=== PATIENT | female | born 1985 | race Caucasian/White ===

== ENCOUNTER → 2018-09-27 07:35 | Outpatient (CLI) | payer OTHER, SELFPAY ==
[2018-07-26 10:37] VITALS: BMI 21.8
[2018-09-27 10:19] LABS: AST(SGOT) 13 U/L (15-37); Albumin, Serum 3.6 g/dL (3.2-5.0); Protein, Total 6.6 g/dL (6.4-8.2)
[2018-09-27 10:20] LABS: Alanine Aminotransfer ALT/SGPT 18 U/L (13-56); Alkaline Phosphatase 37 U/L (45-117); Bilirubin, Direct 0.14 mg/dL (0.00-0.30)
== END ==
PROVIDERS: Family Provider Internal Medicine; PCP Internal Medicine; Referring Provider Nurse Practitioner Family; Visit Provider Nurse Practitioner Family
DX: B35.1 Tinea unguium (principal)
CPT/HCPCS: 36415; 80076

== ENCOUNTER → 2018-11-02 07:18 | Outpatient (CLI) | payer OTHER, SELFPAY ==
[2018-07-26 10:37] VITALS: BMI 21.8
[2018-11-02 08:36] LABS: Mucous, Urine 0 SEEN /hpf (<or=2+); Red Blood Cells-Urine 0 SEEN /hpf (0-5); Squamous Epithelial Cells - UA 0 SEEN /hpf (5-10)
[2018-11-02 09:57] LABS: Color, Urine Yellow (Yellow); Glucose, Dipstick Normal (Normal); Ketone-Dipstick Negative (Negative); Leukocyte Esterase-Dipstick 100 /ul (Negative); Nitrite-Dipstick Negative (Negative); Occult Blood-Urine Negative /ul (Negative); Protein-Dipstick 15 mg/dl (Negative); Urine Bilirubin Dipstick Negative (Negative); Urine Clarity Clear (Clear); Urine Urobilinogen Normal (Normal)
[2018-11-02 10:02] LABS: Absolute Lymphocyte Count 1.65 X10^3/ul (0.83-4.51); Absolute Neutrophil Count 2.7 X10^3/uL (2.0-7.7); Basophil# 0.03 X10^3/uL; Basophil% 0.6 % (0-1); Eosinophil# 0.06 X10^3/uL; Eosinophils% 1.3 % (0-5); Hematocrit 41.5 % (37-47); Hemoglobin 14.7 g/dl (12.0-15.0); Lymphocyte # 1.65 X10^3/ul (4.0); Lymphocyte % 34.5 % (19-41); Mean Corp Hgb Conc 35.4 g/gl (32-36); Mean Corpuscular Hgb 31.2 pg (27.0-32.0); Mean Corpuscular Volume 88.1 fL (81-99); Mean Platelet Vol. 11.2 fl (6.2-12.0); Monocyte# 0.32 X10^3/uL; Monocyte% 6.7 % (0-10); Neutrophil # 2.71 X10^3/uL (2.7-7.7); Neutrophil % 56.7 % (47-70); Platelet Count 218 K/mm3 (150-450); RBC Distribution Width CV 11.9 % (11.6-14.6); RBC Distribution Width SD 37.3 fl (35.1-43.9); Red Blood Count 4.71 M/mm3 (4.2-5.4); White Blood Count 4.8 K/mm3 (4.4-11.0)
[2018-11-02 10:06] LABS: POSITIVE COUNT NO; POSITIVE DIFFERENTIAL NO; POSITIVE MORPHOLOGY NO
[2018-11-02 10:07] LABS: Bacteria 1+ /hpf (None Seen); White Blood Cells 0-5 SEEN /hpf (0-5)
[2018-11-02 10:08] LABS: Internal QC Validated? YES +Cl - CLEAR BKGD; Pregnancy, Urine Negative Negative
[2018-11-02 10:35] LABS: ALB/GLOB Ratio 1.1 RATIO (0.9-2.4); AST(SGOT) 16 U/L (15-37); Alanine Aminotransfer ALT/SGPT 19 U/L (13-56); Albumin, Serum 3.7 g/dL (3.2-5.0); Alkaline Phosphatase 39 U/L (45-117); Anion Gap 7 (5-15); BUN 14 mg/dL (7-18); BUN/Creat Ratio 13.5 RATIO (10-20); Calcium,Total 8.7 mg/dL (8.5-10.1); Chloride 106 mmol/L (98-107); Creatinine, Serum 1.04 mg/dL (0.55-1.02); EST Glomerular Filtration Rate 65 mL/min (>60); Est Glom Filt Rate - Afr Amer 78 mL/min (>60); Globulin 3.4 g/dL (2.2-4.2); Glucose 117 mg/dL (74-106); Iron 197 ug/dL (50-170); Iron Binding Capacity,Total 425 ug/dL (250-450); Potassium 3.8 mmol/L (3.5-5.1); Protein, Total 7.1 g/dL (6.4-8.2); Sodium Level 141 mmol/L (136-145); T4 Free Direct 1.24 ng/dL (0.76-1.46); Thyroid Stim Hormone (TSH) 1.64 uIU/mL (0.358-3.74)
== END ==
PROVIDERS: Family Provider Internal Medicine; PCP Internal Medicine; Referring Provider Nurse Practitioner Family; Visit Provider Nurse Practitioner Family
DX: B35.1 Tinea unguium (principal); R30.0 Dysuria
CPT/HCPCS: 36415; 80053; 81001; 81025; 83540; 83550; 84439; 84443; 85025; 87086; 87088

== ENCOUNTER → 2018-11-09 07:41 | Outpatient (CLI) | payer OTHER, SELFPAY ==
[2018-07-26 10:37] VITALS: BMI 21.8
[2018-11-09 07:47] LABS: Mucous, Urine 0 SEEN /hpf (<or=2+); Red Blood Cells-Urine 0 SEEN /hpf (0-5); White Blood Cells 0 SEEN /hpf (0-5)
[2018-11-09 10:08] LABS: Color, Urine Yellow (Yellow); Glucose, Dipstick Normal (Normal); Ketone-Dipstick Negative (Negative); Leukocyte Esterase-Dipstick Negative /ul (Negative); Nitrite-Dipstick Negative (Negative); Occult Blood-Urine Negative /ul (Negative); Protein-Dipstick Negative (Negative); Specific Gravity, Urine 1.025 (1.002-1.030); Urine Bilirubin Dipstick Negative (Negative); Urine Clarity Sl. Cloudy (Clear); Urine Urobilinogen Normal (Normal)
[2018-11-09 10:18] LABS: Bacteria 1+ /hpf (None Seen); Squamous Epithelial Cells - UA 0-5 SEEN /hpf (5-10)
== END ==
PROVIDERS: Family Provider Internal Medicine; PCP Internal Medicine; Referring Provider Dermatology; Visit Provider Dermatology
DX: R30.0 Dysuria (principal)
CPT/HCPCS: 81001

== ENCOUNTER → 2019-07-29 10:56 | Outpatient (CLI) | payer OTHER, SELFPAY ==
[2019-07-29 09:51] VITALS: BMI 21.8
[2019-07-29 12:13] LABS: Rubella IgG 242.3 IU/mL
[2019-08-01 13:48] LABS: HPV APTIMA, High Risk Negative (Negative)
== END ==
PROVIDERS: Family Provider Internal Medicine; PCP Internal Medicine; Referring Provider Obstetrics & Gynecology; Visit Provider Obstetrics & Gynecology
DX: Z31.69 Encounter for other general counseling and advice on procreation (principal); Z12.4 Encounter for screening for malignant neoplasm of cervix
CPT/HCPCS: 36415; 86762; 87624; 88175; G0145

== ENCOUNTER → 2019-12-16 | Outpatient (CLI) | payer OTHER, SELFPAY ==
[2019-12-16 14:05] VITALS: BMI 21.8
[2019-12-16 15:31] LABS: Absolute Lymphocyte Count 1.54 X10^3/uL (0.83-4.51); Basophil# 0.03 X10^3/uL; Basophil% 0.3 % (0-1); Eosinophil# 0.05 X10^3/uL; Eosinophils% 0.5 % (0-5); Hematocrit 35.5 % (37-47); Hemoglobin 12.7 g/dL (12.0-15.0); Lymphocyte # 1.54 X10^3/ul (4.0); Lymphocyte % 15.2 % (19-41); Mean Corp Hgb Conc 35.8 g/dL (32-36); Mean Corpuscular Hgb 31.1 pg (27.0-32.0); Mean Corpuscular Volume 86.8 fL (81-99); Mean Platelet Vol. 10.9 fl (6.2-12.0); Monocyte# 0.49 X10^3/uL; Monocyte% 4.8 % (0-10); NRBC Flagged by Analyzer 0 % (0-5); Neutrophil # 7.96 X10^3/uL (2.7-7.7); Neutrophil % 78.8 % (47-70); Platelet Count 199 K/mm3 (150-450); RBC Distribution Width SD 37.7 fl (35.1-43.9); Red Blood Count 4.09 M/mm3 (4.2-5.4); White Blood Count 10.1 K/mm3 (4.4-11.0)
[2019-12-16 17:53] LABS: Amphetamine Urine VISTA NEGATIVE (<1000 ng/mL); Barbiturate Urine VISTA NEGATIVE (< 200 ng/mL); Benzodiazepine Urine VISTA NEGATIVE (< 200 ng/mL); Cocaine Urine VISTA NEGATIVE (< 300 ng/mL); Ecstacy Urine VISTA NEGATIVE (< 500 ng/mL); Methadone Urine VISTA NEGATIVE (< 300 ng/mL); PCP Urine VISTA NEGATIVE (< 25 ng/mL); THC Urine VISTA NEGATIVE (< 50 ng/mL); Vista UDS pH Range 6
[2019-12-16 21:19] LABS: Chlamydia Trachomatis by PCR Negative (Negative); Neisserai gonorrhoeae by PCR Negative (Negative); Probe Check PASS; Sample Adequacy Control PASS; Specimen Processing Control PASS
[2019-12-17 08:14] LABS: HIV - WCH Non-Reactive (Nonreactive); Hepatitis B Surface Antigen Non-Reactive (Nonreactive); Hepatitis C Antibody Non-Reactive (Nonreactive); Rubella IgG 209.7 IU/mL
[2019-12-19 08:06] LABS: Rapid Plasmin Reagin (RPR) NONREACTIVE (NONREACTIVE)
== END | disposition home or self-care (01) ==
PROVIDERS: PCP Internal Medicine; Referring Provider Obstetrics & Gynecology; Visit Provider Obstetrics & Gynecology
DX: Z34.00 Encounter for supervision of normal first pregnancy, unspecified trimester (principal)
CPT/HCPCS: 36415; 80307; 85025; 86592; 86703; 86762; 86803; 86850; 86900; 86901; 87086; 87088; 87340; 87491; 87591

== ENCOUNTER → 2020-04-24 | Outpatient (CLI) | payer OTHER, SELFPAY ==
[2020-03-24 13:04] VITALS: BMI 23.3
[2020-04-24 13:23] LABS: Absolute Lymphocyte Count 1.27 X10^3/uL (0.83-4.51); Absolute Neutrophil Count 9.7 X10^3/uL (2.0-7.7); Basophil# 0.03 X10^3/uL; Basophil% 0.3 % (0-1); Eosinophil# 0.03 X10^3/uL; Eosinophils% 0.3 % (0-5); Hematocrit 35.7 % (37-47); Hemoglobin 12.2 g/dL (12.0-15.0); Lymphocyte # 1.27 X10^3/ul (4.0); Lymphocyte % 10.9 % (19-41); Mean Corp Hgb Conc 34.2 g/dL (32-36); Mean Corpuscular Hgb 31.2 pg (27.0-32.0); Mean Corpuscular Volume 91.3 fL (81-99); Mean Platelet Vol. 11.3 fl (6.2-12.0); Monocyte% 4.3 % (0-10); NRBC Flagged by Analyzer 0 % (0-5); Neutrophil # 9.69 X10^3/uL (2.7-7.7); Neutrophil % 83.3 % (47-70); Platelet Count 174 K/mm3 (150-450); RBC Distribution Width CV 12.4 % (11.6-14.6); RBC Distribution Width SD 40.9 fl (35.1-43.9); Red Blood Count 3.91 M/mm3 (4.2-5.4); White Blood Count 11.6 K/mm3 (4.4-11.0)
[2020-04-24 13:35] LABS: Glucose Challenge Gest 1H 50g 115 mg/dL (70-140)
== END | disposition home or self-care (01) ==
PROVIDERS: PCP Internal Medicine; Referring Provider Obstetrics & Gynecology; Visit Provider Obstetrics & Gynecology
DX: O26.899 Other specified pregnancy related conditions, unspecified trimester (principal); Z67.91 Unspecified blood type, Rh negative; Z3A.00 Weeks of gestation of pregnancy not specified
CPT/HCPCS: 36415; 82950; 85025; 86850; 86900; 86901

== ENCOUNTER → 2020-06-17 | Outpatient (CLI) | payer OTHER, SELFPAY ==
[2020-06-17 15:09] VITALS: BMI 26.2
== END | disposition home or self-care (01) ==
LOC: LABSPEC 16:12
PROVIDERS: PCP Internal Medicine; Visit Provider Obstetrics & Gynecology
DX: Z34.90 Encounter for supervision of normal pregnancy, unspecified, unspecified trimester (principal)
CPT/HCPCS: 87077; 87081; 87186

== ENCOUNTER → 2020-06-29 | Outpatient (CLI) | payer OTHER, SELFPAY ==
[2020-06-05 14:52] VITALS: BMI 25.6
[2020-06-17 15:09] VITALS: BMI 26.2
== END | disposition home or self-care (01) ==
LOC: LABSPEC 10:15
PROVIDERS: PCP Internal Medicine; Referring Provider Obstetrics & Gynecology; Visit Provider Obstetrics & Gynecology
DX: Z34.90 Encounter for supervision of normal pregnancy, unspecified, unspecified trimester (principal)
CPT/HCPCS: 87635; C9803; U0003

== ENCOUNTER → 2020-07-10 10:58 | Outpatient (CLI) | payer OTHER, SELFPAY ==
[2020-07-02 13:57] VITALS: BMI 26.2
[2020-07-10 10:07] VITALS: BMI 26.1
== END ==
PROVIDERS: PCP Internal Medicine; Visit Provider Obstetrics & Gynecology
DX: Z34.90 Encounter for supervision of normal pregnancy, unspecified, unspecified trimester (principal)
CPT/HCPCS: 87635; C9803; U0003

== ENCOUNTER → 2020-07-10 15:27 | Outpatient (CLI) | payer OTHER, SELFPAY ==
[2020-07-10 10:07] VITALS: BMI 26.1
--- NOTE | 2020-07-10 15:30 | US_ITS ---
STUDY: SECOND AND THIRD TRIMESTER OBSTETRICAL ULTRASOUND limited REASON FOR EXAM: Female, 35 years old GROWTH, AND RUSSELL LMP: 10/05/2019 TECHNIQUE: Transabdominal real-time exam with don scale image documentation. TECHNICAL QUALITY: Adequate. PRIOR ULTRASOUND: None. FINDINGS: There is a single intrauterine fetus. The fetus is in a cephalic presentation. There is demonstrated cardiac activity with a heart rate of 155 bpm. There is a normal amniotic fluid volume. The largest amniotic fluid pocket measures 4.5 x 6.0 cm. The amniotic fluid index (RUSSELL) is 11.5 cm. The placenta is anterior and not low lying. There are Grade 2 placental changes. The cervix is not visualized. The adnexal regions are not visualized. BIOMETRY: BPD: 8.79 cm: 35 weeks, 3 days HC: 32.8 cm: 37 weeks, 2 days AC: 36.2 cm: 40 weeks, 0 days FL: 7.57 cm: 38 weeks, 4 days CI: 78.2 FL/BPD: 86.1 FL/AC: 20.9 HC/AC: 0.91 age by current US: 37 weeks, 5 days. ALVAREZ by current US: 07/26/2020. Estimated weight: 3655 grams, +/- 548 grams, 55 %. Age by LMP: 39 weeks, 6 days. ALVAREZ by LMP: 07/11/2020. US/OB Limited With Biometrics IMPRESSION: Single living intrauterine fetus measuring 37 weeks and 5 days with an ALVAREZ of 07/26/2020. Amniotic fluid index of 11.5 cm. Grade 2, anterior and not low lying placenta. Estimated weight 3655 g +/- 548 g, 55 percentile. Electronically Signed: Federica Wellington MD at 16:52 EST , Service support ,
== END ==
PROVIDERS: PCP Internal Medicine; Referring Provider Obstetrics & Gynecology; Visit Provider Obstetrics & Gynecology
DX: O26.849 Uterine size-date discrepancy, unspecified trimester (principal); Z3A.00 Weeks of gestation of pregnancy not specified
CPT/HCPCS: 76816

== ENCOUNTER 2020-07-15 11:20 | Inpatient (IN) | payer OTHER, SELFPAY ==
[2020-06-17 15:09] VITALS: BMI 26.2
[2020-07-10 10:07] VITALS: BMI 26.1
[2020-07-15] VITALS (36 sets, daily range): BP systolic 98–146; BP diastolic 53–94; PULSE 69–114; RESP 16; TEMP 36.7–37.5; O2SAT 86–100; BMI 25.9
[2020-07-15] MEDS: Lactated Ringers 1,000 ML 200 ML IV ×2 (12:00→18:41)
[2020-07-15 12:24] LABS: Absolute Neutrophil Count 11.3 X10^3/uL (2.0-7.7); Basophil# 0.02 X10^3/uL; Basophil% 0.2 % (0-1); Eosinophil# 0.01 X10^3/uL; Eosinophils% 0.1 % (0-5); Hematocrit 41.4 % (37-47); Hemoglobin 13.9 g/dL (12.0-15.0); Lymphocyte % 8.5 % (19-41); Mean Corp Hgb Conc 33.6 g/dL (32-36); Mean Corpuscular Hgb 29.4 pg (27.0-32.0); Mean Corpuscular Volume 87.7 fL (81-99); Mean Platelet Vol. 13.1 fl (6.2-12.0); Monocyte# 0.44 X10^3/uL; Monocyte% 3.4 % (0-10); NRBC Flagged by Analyzer 0 % (0-5); Neutrophil # 11.29 X10^3/uL (2.7-7.7); Neutrophil % 87.2 % (47-70); Platelet Count 172 K/mm3 (150-450); RBC Distribution Width CV 14.4 % (11.6-14.6); RBC Distribution Width SD 45.1 fl (35.1-43.9); Red Blood Count 4.72 M/mm3 (4.2-5.4); White Blood Count 12.9 K/mm3 (4.4-11.0)
[2020-07-15] MEDS: Cefazolin 1 GM/50 ML BAG IV ×2 (12:31→19:54)
--- NOTE | 2020-07-15 12:58 | PCM.HPOB.BLA ---
- Problem List (1) Active labor Status: Acute (2) Asthma Status: Acute Qualifiers: Comment: singular, ProAir stable controlled by PCP (3) Exposure to COVID-19 virus Status: Acute Comment: testing 06/26 and 07/10- negative. counseled regarding quarantine (4) Influenza vaccine administered Status: Acute Comment: [id number] (5) Positive GBS test Status: Acute Comment: ancef in labor (6) Status: Acute Qualifiers: Comment: declined genetic, carrier and NTD. anatomy reviewed. 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 Is patient in pain?: No Allergies amoxicillin Allergy (Mild, Verified 07/10/20 10:07) Vomiting erythromycin base Allergy (Mild, Verified 07/10/20 10:07) Vomiting Medications albuterol sulfate 90 mcg/actuation aerosol inhaler 1 puff INHALATION Q6H 07/29/19 [History Confirmed 07/10/20] montelukast 10 mg tablet 10 mg PO QPM 07/29/19 [History Confirmed 07/10/20] vitamin#30 30 mg iron-10 mg iron-folic acid 1 mg-omg3 capsule cap PO 12/16/19 [History Confirmed 07/10/20] promethazine 12.5 mg tablet 12.5 mg PO TID PRN #60 tab 12/16/19 [Rx Confirmed 07/10/20] ondansetron 4 mg disintegrating tablet 4 mg PO Q4H PRN #60 tab 01/17/20 [Rx Confirmed 07/10/20] meclizine 12.5 mg tablet 12.5 mg PO TID PRN #60 tab 02/10/20 [Rx Confirmed 07/10/20] Last Menstral Period: 10/11/19 Zika: Zika virus screening: Negative : No PFSH PFSH Surgical History History of wisdom tooth extraction, class II edentulism (Acute) Family History Father auto immune disorder Social History (Updated 07/10/20 @ 10:[address] 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 OB Visit ALVAREZ Calculator Estimated Delivery Date Method Current WG Current Estimate 07/11/20 Ultrasound #1 39w 6d Other Estimates 07/17/20 LMP (Certain) 39w 0d Expected Delivery Route/Plan Labor Preferences- CB/BF classes: may and april labor support person: derian labor intervention preferences: none pain management options preferred: open to anything. cut cord/dad catch: yes maybe : yes PP control planned: pill or nuvaring discussed possible routes of delivery and associated risks: discussed possible delivery modalities and possible indications for each including R/B/A of , VAVD, and CS. questions answered. special requests: [] Specific Issue/Plans flu vaccine: 04/24 tdap vaccine: 04/24 rhogam: 04/24 LARC form signed: declined movement and labor precautions reviewed. Problem list reviewed and updated with the most current plan of care details and appropriate orders placed. Relevant counseling for the gestational age provided. Continue routine care and follow up unless otherwise noted in visit notes/problem list details Initial Weight: 130 lb Date EGA Weight BP Urine Prot Glucose FHR FuHt Pres Dilation Effaced St Visit Note 01/17/20 14w 6d 129 lb 6 oz (-10 oz) 120/78 Negative Negative 151 MH-No Vb, cramping. Still struggling with N&V:zofran Rx. 02/10/20 18w 2d 132 lb 2 oz (+2 lb 2 oz) 120/70 Negative Negative 150 SM- no vb cramping doing well overall 03/24/20 24w 3d 140 lb 8 oz (+10 lb 8 oz) 118/78 Negative Negative 145 24 SM- no vb lof good fm scheduled us 04/24/20 28w 6d 147 lb 2 oz (+17 lb 2 oz) 126/68 Negative Negative 145 28 SM- no vb lof good fm no regular ctx 05/06/20 30w 4d 150 lb 4 oz (+20 lb 4 oz) 138/80 Negative Negative 140 30 GP - No lof, VB, dfm, ctx. Denies complaints. GP - No lof, VB, dfm, ctx. Denies complaints. CB classes this weekend. 05/22/20 32w 6d 150 lb (+20 lb) 124/66 Negative Negative 135 32 SM- no vb lof good fm no regular ctx discussed labor preferences. 06/05/20 34w 6d 154 lb (+24 lb) 120/80 Negative Negative 130 34 GP - no LOF, VB, DFM, regular ctx. Considering Aparna vs. Meron as names. 06/17/20 36w 4d 158 lb (+28 lb) 104/84 Negative Negative 155 36 Cephalic 0 SM- no vb lof good fm no regular ctx 06/26/20 37w 6d 120/70 140 37 Cephalic SM- covid exposure monday from her mother. recommend testing now and patient is quarantining. asymptomatic. no vb lof good fm, no regular ctx. 07/02/20 38w 5d 157 lb 8 oz (+27 lb 8 oz) 110/80 Negative Negative 140 38 Cephalic 0 40 -2 GP - no regular ctx, LOF, VB, DFM. Cx remains closed. Discussed induction at 41 weeks unless spontaneous labor. 07/10/20 39w 6d 157 lb (+27 lb) 120/88 Negative Negative 140 37 Cephalic 0 SM- no vb lof good fm no regular ctx discussed IOL 41 weeks. russell 8 cm, consider repeat RUSSELL next week ACOG First Trimester First Trimester: Desire for , Alcohol, Tobacco Cessation, Illicit/Recreational Drug/Substance Use, Intimate Partner Violence, Barriers to care, Unstable Housing, Communication Barriers, Environmental/Work Hazards, Anticipated Course of Care, Toxoplasmosis Precations, Use of Any medications, Sexual activity, Exercise, Dental Care, Sauna/Hot tub use, Seat Belt use, Childbirth classes/Hospital facilities, , Travel, Indications for US and Screening for Aneuploidy Diagnostics Diagnostics Diagnostics Blood Type AB NEGATIVE 04/24/20 Antibody Screen NEGATIVE 04/24/20 Glucose 1 Hr 50 gm 115 mg/dL (70-140) 04/24/20 Hgb 12.2 g/dL (12.0-15.0) 04/24/20 Hct 35.7 % (37-47) L 04/24/20 Details: HIV: Urine Culture: Sequential Screen: NIPT Screen: ROS Const Reports system reviewed and no additional complaints, except as docu Card Reports system reviewed and no additional complaints, except as docu Resp Reports system reviewed and no additional complaints, except as docu GI Reports system reviewed and no additional complaints, except as docu, Reports nausea Reports system reviewed and no additional complaints, except as docu Musc Reports system reviewed and no additional complaints, except as docu Exam Const General: cooperative, healthy appearing, comfortable, anxious HENSD Head: normal to inspection Nose: external nose normal Face and sinus: normal facial exam Neck Neck: normal visual inspection, full ROM, no lymphadenopathy Thyroid: thyroid normal Chest Chest palpation & inspection: normal inspection of the chest Resp Effort & Inspection: normal respiratory effort GI Inspection: normal to inspection Palpation: soft, other (gravid uterus) Other: infant vertex and appropriate size for gestational age Other: Cervical Exam: Extrem General: pedal edema Results POC Urinalysis 2 Dip (Clinic) Office Urine Glucose Negative Last Edit by Julia Perdomo on 07/10/20 10:13 Office Urine Protein Negative Last Edit by Julia Perdomo on 07/10/20 10:13 Assessment & Plan Problems 1. Z34.90 declined genetic, carrier and NTD. anatomy reviewed. 2. Supervision of normal first Z34.00 PRR ALVAREZ 07/11/2020 Girl Spouse: Derian 3. Asthma J45.909 singular, ProAir stable controlled by PCP 4. Rh negative status during O26.899; Z67.91 rhogam at 28 weeks and PRN 5. Influenza vaccine administered Z23 [id number] 6. 35 weeks gestation of Z3A.35 electronic covid test ordered 06/10/2020sc (scheduled 07/02/20 at 4:30) 7. Positive GBS test B95.1 ancef in labor 8. Exposure to COVID-19 virus Z20.828 testing 06/26- negative. counseled regarding quarantine Patient presents IAL, plan expectant management for , pitocin/AROM PRN if needed. Pain management: plans epidural. GBS positive plan IV Ancef (hx vomiting with amoxicillin). Management of any complications: none I have reviewed the [facility] and made any clinically relevant updates. UPDATE- I have seen the patient and performed any clinically relevant updates to the history and physical exam. Aparna Aleln MD
[2020-07-15] MEDS: Lactated Ringers 500 ML 999 ML IV ×4 (13:22→22:16)
[2020-07-15] MEDS: fentaNYL-bupivacaine (epidural) 100 ML BAG EPIDURAL (13:55)
[2020-07-15] MEDS: Oxytocin 30 units/NS 500 ml 30 UNITS/500 ML IV.SOLN IV (14:20)
[2020-07-15] MEDS: Mag Hydrox/Al Hydrox/Simeth 30 ML UDC PO ×2 (15:06→22:11)
[2020-07-15] MEDS: 0.9% Saline Lock 10 ML Syringe IV (19:34)
[2020-07-15] MEDS: Ondansetron 4 MG/2 ML Vial IV (19:34)
[2020-07-15] MEDS: Acetaminophen 500 MG Tablet PO (19:41)
--- NOTE | 2020-07-15 23:32 | NURSING ---
Sexton removed per Dr. Allen in preparation of potential vaginal forcep delivery. New sexton was inserted before c section.
[2020-07-15] MEDS: Sodium Citrate/Citric Acid 30 ML UDC PO (23:42)
[2020-07-16] VITALS (17 sets, daily range): BP systolic 113–135; BP diastolic 40–77; PULSE 78–96; RESP 16–18; TEMP 35.7–37.7; O2SAT 96–100
[2020-07-16] MEDS: Cefazolin 2 GM in 0.9% Normal Saline 100 ML IV (00:04)
[2020-07-16] MEDS: Methylergonovine 0.2 MG/ML Ampul IM (00:16)
[2020-07-16] MEDS: miSOPROStol 200 MCG Tablet 1000 MCG RECTAL (01:10)
--- NOTE | 2020-07-16 01:28 | OP.PCM_ITS ---
Problem List (1) Active labor Status: Acute (2) Asthma Status: Acute Qualifiers: Comment: singular, ProAir stable controlled by PCP (3) Exposure to COVID-19 virus Status: Acute Comment: testing 06/26 and 07/10- negative. counseled regarding quarantine (4) Influenza vaccine administered Status: Acute Comment: [id number] (5) Positive GBS test Status: Acute Comment: ancef in labor (6) Status: Acute Qualifiers: Comment: declined genetic, carrier and NTD. anatomy reviewed. 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 She was augmented with Pitocin and artificial rupture of membranes. She made cervical change to complete dilation and pushed for 3 hours with excellent maternal effort. The head was noted to be at the +2 station and the baby was noted to have worsening tachycardia and minimal variability with late decelerations with pushing. The decision was made to proceed with an attempt at a forceps assisted vaginal delivery. Kielland forceps were applied and 1 pull was attempted. No descent was noted and therefore the decision was made to proceed with a section. Indications for : Failure to Progress, Failed forceps extraction Description of Procedure: The patient is a G1, P0 at 40 weeks gestation who presented for primary C- section for arrest of descent and failed forceps assisted vaginal delivery. Spinal anesthesia was placed without difficulty. Delvalle catheter was placed. The patient was placed in the dorsal supine position with leftward tilt. Patient was prepped and draped in the normal sterile fashion. Pfannenstiel skin incision was made with the scalpel and carried through to the underlying layer of fascia with the scalpel. Fascia was nicked in the midline and the incision extended laterally. The rectus bellies were dissected off superiorly and inferiorly with out complication both sharply and bluntly. The peritoneum was entered digitally. The incision was stretched and a low transverse uterine incision was made with the scalpel. The infant's head was delivered atraumatically followed by the anterior and posterior shoulders without complication the rest of the infant delivered. The cord was clamped and cut and the was handed off to awaiting nurse. The placenta was delivered sp ontaneously immediately following and was noted to be intact and have a three- vessel cord. The uterus was exteriorized cleared of all clots and debris, and the incision was closed in a double layer closure using #1 Monocryl. The ovaries and fallopian tubes were noted to be within normal limits. The uterus was returned to the maternal abdomen and gutters were cleared of all clots and debris. The peritoneum was closed with 3-0 Monocryl in a running fashion. Gloves were changed prior to fascial closure. Fascia was closed with 0 PDS in a running fashion. Subcutaneous tissue was copiously irrigated and the skin was closed with 3-0 Monocryl in a subcuticular fashion. Mepilex dressing was applied without complication. Patient was taken to recovery in stable condition. It was discussed with the patient that based on the clinical information obtained during this encounter, combined with her history, at this time I would recommend a section for future deliveries unless the baby is suspected to be significantly smaller if further pregnancies are desired. Amniotic Fluid Description: Thick meconium Placenta Disposition: [facility] Cord Entanglement: None Nuchal Cord Compression: Without compression Cord Vessel Description: 3 Vessels Esitmated Blood Loss (ml): 700 Infant Gender: Female Delayed cord clamping: No Antibiotic Given: Ancef 2 grams IV x1 Pt instructed on risks of surgery: Bleeding, Anesthesia Risks, Infection, Need for Future C-Sections, Injury to surrounding structure(s) including bowel and bladder Complications: None - Admit VTE Documentation VTE Present on Admission: No VTE Mechan Device Prophylaxis: SCD's VTE Pharm Prophylaxis ordered?: No Multi Select Codes - Urinary/Genital Urinary/Genital CPT Codes: 71740 [facility]
[2020-07-16] MEDS: Oxytocin 30 units/NS 500 ml 30 UNITS/500 ML IV.SOLN 167 UNITS IV (01:30)
--- NOTE | 2020-07-16 01:34 | DCINST_ITS ---
Discharge Diet: No Restrictions Discharge Activity: May Not Drive - for 2 weeks or while taking narcotic pain meds., May Shower, May Take a Tub Bath - in 7 days. May resume sexual activity in: 4-6 weeks Lifting Restrictions: 20 pounds Additional Activity Instructions:: Nothing in the vagina for 4-6 weeks. You may return to work/school in 6 weeks. Call your doctor if your incision/area has: Continuous Slow Oozing, Sudden Increased Bleeding, Increased Pain/ Swelling, Increased Redness, Foul Smelling Discharge Call your doctor if you observe: Fever of 101 or Higher Suture Line Care: Avoid Pulling/Pushing, Avoid Pinching/Bending Additional Instructions: If you experience any of the following, contact your healthcare provider. * Bleeding that soaks a pad every hour for 2 hours * Fever 100.4 or higher * Unrelieved incision or abdominal pain * Swelling, redness, discharge or bleeding from your incision or episiotomy site * Your incision begins to separate * Problems urinating (including inability to urinate or burning while urinating). * Visual changes * Severe headache * Flu-like symptoms * Pain or redness in one of both of your breasts * Pain, warmth, tenderness or swelling in your legs, especially the calf area * Frequent nausea and vomiting * Symptoms of depression or anxiety If you experience any of the following, call 911 or go to the nearest Emergency Room. * Chest pain * Problems breathing * Seizure activity * Partial or complete paralysis of a body part, slurred speech, weakness or drooping of the face, or a sudden inability to walk or hold your balance Allergies/Adverse Reactions: Allergies amoxicillin Adverse Reaction (Mild, Verified 07/15/20 11:53) Vomiting erythromycin base Adverse Reaction (Mild, Verified 07/15/20 11:53) Vomiting azithromycin Adverse Reaction (Verified 07/15/20 11:53) Vomiting Medications to take at Discharge albuterol sulfate 90 mcg/actuation aerosol inhaler 1 puff INHALATION Q6H PRN 07/29/19 Docusate Sodium [Colace] 200 mg PO DAILY 07/15/20 Ferrous Sulfate 325 mg PO 07/15/20 Pnv No.103/Folic/Om3s/Fish Oil [ Gummies] 2 ea PO DAILY 07/15/20 Follow-Up: Call to make an appointment with your doctor for an incision check in 1-2 weeks. You will also need a 6 week post- follow up appointment. Test results from this visit will be discussed in further detail at your follow- up appointment, if applicable. Primary Care Physician: Britta Acevedo DO [Primary Care Provider] -
[2020-07-16] MEDS: Acetaminophen 500 MG Tablet PO (01:41)
--- NOTE | 2020-07-16 02:43 | NURSING ---
0103 Dr. Allen notified of patient's uterine atony that firmed up with massage. Slight trickle with assessment. Verbal order to give 1000 mcg of Cytotec rectally x1.
[2020-07-16] MEDS: Lactated Ringers 1,000 ML 100 ML IV (04:34)
[2020-07-16] MEDS: Ketorolac 30 MG/ML Syringe IV ×3 (06:40→18:43)
[2020-07-16] MEDS: 0.9% Saline Lock 10 ML Syringe IV ×4 (06:41→18:43)
[2020-07-16] MEDS: Senna/Docusate Sodium 1 Tablet PO (08:06)
[2020-07-16] MEDS: Acetaminophen 500 MG Tablet 1000 MG PO ×3 (08:07→20:54)
--- NOTE | 2020-07-16 08:26 | NURSING ---
0820 epidural catheter removed. blue tip intact
[2020-07-16] MEDS: oxyCODONE 5 MG Tablet PO ×5 (09:36→19:13)
[2020-07-17] MEDS: oxyCODONE 5 MG Tablet PO ×4 (00:06→15:27)
[2020-07-17] MEDS: 0.9% Saline Lock 10 ML Syringe IV (00:36)
[2020-07-17] MEDS: Ketorolac 30 MG/ML Syringe IV (00:36)
[2020-07-17 02:14] VITALS: BP 116/64; PULSE 83; RESP 18; TEMP 36.2; O2SAT 97
[2020-07-17] MEDS: Acetaminophen 500 MG Tablet 1000 MG PO ×4 (02:48→21:02)
[2020-07-17 04:48] LABS: Hematocrit 34.8 % (37-47); Hemoglobin 11.6 g/dL (12.0-15.0); Mean Corp Hgb Conc 33.3 g/dL (32-36); Mean Corpuscular Hgb 30.4 pg (27.0-32.0); Mean Corpuscular Volume 91.1 fL (81-99); Mean Platelet Vol. 12.1 fl (6.2-12.0); Platelet Count 141 K/mm3 (150-450); RBC Distribution Width SD 49.9 fl (35.1-43.9); Red Blood Count 3.82 M/mm3 (4.2-5.4); White Blood Count 15.3 K/mm3 (4.4-11.0)
[2020-07-17] MEDS: Naproxen 250 MG Tablet 500 MG PO ×3 (06:47→22:50)
[2020-07-17 08:52] VITALS: BP 112/63; PULSE 76; RESP 16; TEMP 36.3
[2020-07-17] MEDS: Senna/Docusate Sodium 1 Tablet PO (09:05)
[2020-07-17 14:35] VITALS: BP 131/76; PULSE 91; RESP 16; TEMP 36.2
[2020-07-17 20:45] VITALS: BP 128/71; PULSE 87; RESP 16; TEMP 36.6; O2SAT 99
[2020-07-18] MEDS: Acetaminophen 500 MG Tablet 1000 MG PO ×3 (03:02→16:50)
[2020-07-18 03:10] VITALS: BP 122/80; PULSE 88; RESP 18; TEMP 36.4; O2SAT 98
[2020-07-18] MEDS: Naproxen 250 MG Tablet 500 MG PO ×2 (06:42→15:13)
--- NOTE | 2020-07-18 08:52 | PN.OBGYN_ITS ---
Patient Problems: Active and Suspected Problems (Last Reviewed 07/10/20 @ 10:08 by Julia Perdomo) Active labor (Acute) Exposure to COVID-19 virus (Acute) testing 06/26 and 07/10- negative. counseled regarding quarantine Positive GBS test (Acute) ancef in labor Influenza vaccine administered (Acute) [id number] Rh negative status during (Acute) rhogam at 28 weeks and PRN Asthma (Acute) singular, ProAir stable controlled by PCP Supervision of normal first (Acute) PRR ALVAREZ 07/11/2020 Girl Spouse: Derian (Acute) declined genetic, carrier and NTD. anatomy reviewed. Subjective: Patient doing well without complaints. Tolerating PO. Ambulating and voiding without difficulty. feeding well. Denies chest pain, shortness of breath, calf pain/swelling, fevers, chills, lightheadedness. - Physical Exam Vitals/I&O's: Vital Signs Temp Pulse Resp BP Pulse Ox 97.6 F L 88 18 122/80 H 98 07/18/20 03:10 07/18/20 03:10 07/18/20 03:10 07/18/20 03:10 07/18/20 03:10 Oxygen Delivery Method Room Air Weight: 156 lb 4.924 oz Body Mass Index (BMI) 25.9 Intake and Output for Last 24 Hours 07/16/20 07/17/20 07/18/20 23:59 23:59 23:59 Intake Total 3410 / 3410 Output Total 3450 / 3850 400 / 400 Balance -40 / -440 -400 / -400 General: Alert, Oriented x3, Cooperative Abdomen: Soft - Minimally distended and appropriately tender. FF below U. Dressing dry and intact Current Medications Acetaminophen (Acetaminophen 500 Mg Tablet) 1,000 mg PO Q6H [facility] Last Admin: 07/18/20 03:02 Dose: 1,000 mg Documented by: Bisacodyl (Bisacodyl 10 Mg Suppository) 10 mg RECTAL UD PRN PRN Reason: If no BM Hydrocortisone (Hydrocortisone 2.5% Crm) 1 applic TOPICAL TID PRN PRN; Protocol PRN Reason: Discomfort Methylergonovine Maleate (Methylergonovine 0.2 Mg/Ml Ampul) 0.2 mg IM X1 PRN PRN Reason: Uterine Atony Last Admin: 07/16/20 00:16 Dose: 0.2 mg Documented by: Naproxen (Naproxen 250 Mg Tablet) 500 mg PO Q8H [facility] Last Admin: 07/18/20 06:42 Dose: 500 mg Documented by: Ondansetron HCl (Ondansetron 4 Mg/2 Ml Vial) 4 mg IV Q4H PRN PRN PRN Reason: Nausea Oxycodone HCl (Oxycodone 5 Mg Tablet) 5 - 10 mg PO Q4H PRN PRN PRN Reason: Pain Score 4-10 Last Admin: 07/17/20 15:27 Dose: 10 mg Documented by: Prochlorperazine Edisylate (Prochlorperazine 10 Mg/2 Ml Vial) 10 mg IV Q6H PRN PRN PRN Reason: NAUSEA Senna/Docusate Sodium (Senna/Docusate Sodium 1 Tablet) 0 tablet PO DAILY [facility] Last Admin: 07/17/20 09:05 Dose: 1 tablet Documented by: Simethicone (Simethicone 80 Mg Tablet) 80 mg PO PCHS PRN PRN Reason: Indigestion/stomach pain Last Admin: 07/17/20 22:54 Dose: 80 mg Documented by: Sodium Chloride (0.9% Saline Lock 10 Ml Syringe) 5 - 15 ml IV UD PRN PRN Reason: SALINE FLUSH Last Admin: 07/17/20 00:36 Dose: 10 ml Documented by: Medical Necessity - Tobacco Use Smoking Status: Never smoker Assessment/Plan All Active Problems (Last Reviewed 07/10/20 @ 10:08 by Julia Perdomo) Active labor (Acute) Exposure to COVID-19 virus (Acute) Positive GBS test (Acute) 35 weeks gestation of (Acute) Influenza vaccine administered (Acute) Rh negative status during (Acute) Asthma (Acute) Supervision of normal first (Acute) (Acute) Low-lying placenta in second trimester (Resolved) s/p LTCS PPD # 2 1. routine post care 2. breast feeding- support given 3. rh negative 4. rubella immune 5. plans home later today
[2020-07-18] MEDS: Senna/Docusate Sodium 1 Tablet PO (09:09)
[2020-07-18 09:10] VITALS: BP 127/80; PULSE 80; RESP 18; TEMP 36.4; O2SAT 96
--- NOTE | 2020-07-18 09:14 | NURSING ---
Bruising noted on bilateral nipples; functional consultant working with pt at this time.
[2020-07-18 14:00] VITALS: BP 134/78; PULSE 77; RESP 16; TEMP 36.6; O2SAT 99
== END 2020-07-18 17:40 | disposition home or self-care (01) | DRG 787 ==
LOC: OBT 11:22 → WP 11:22
PROVIDERS: Admitting Provider Obstetrics & Gynecology; PCP Internal Medicine; Referring Provider Obstetrics & Gynecology; Visit Provider Obstetrics & Gynecology
DX: O66.5 Attempted application of vacuum extractor and forceps (principal); O98.82 Other maternal infectious and parasitic diseases complicating childbirth; O62.1 Secondary uterine inertia; B95.1 Streptococcus, group B, as the cause of diseases classified elsewhere; O76 Abnormality in fetal heart rate and rhythm complicating labor and delivery; O77.0 Labor and delivery complicated by meconium in amniotic fluid; Z3A.39 39 weeks gestation of pregnancy; Z37.0 Single live birth
CPT/HCPCS: 59025; 59050; 85025; 85027; 85461; 86850; 86900; 86901; 90384; 99218; J7120; A4216; G0378; J2405; J2790

== ENCOUNTER 2021-09-09 15:01 | Outpatient (CLI) | payer OTHER, SELFPAY | END 2021-09-09 23:59 | disposition short-term general hospital (02) | LOC: PAVLAB 15:03 | PROVIDERS: Nurse Practitioner Women's Health; PCP Internal Medicine; Referring Provider Obstetrics & Gynecology; Visit Provider Obstetrics & Gynecology | DX: O46.90 Antepartum hemorrhage, unspecified, unspecified trimester (principal); N39.0 Urinary tract infection, site not specified | CPT/HCPCS: 36415; 84702; 86850; 86900; 86901; 87086; 87088 ==

== ENCOUNTER 2021-09-10 18:06 | Outpatient (CLI) | payer OTHER, SELFPAY ==
--- NOTE | 2021-09-10 18:15 | US_ITS ---
INDICATION: well being EXAMINATION: US OB Transvaginal TECHNIQUE: Transabdominal pelvic ultrasound was performed. Grayscale, spectral waveform, and color flow Doppler evaluation of the adnexa. COMPARISON: None. FINDINGS: UTERUS: Measures 11 x 8.5 x 6.1 cm. RIGHT OVARY: Measures 1.9 x 2 x 2.1 cm. Normal. LEFT OVARY: Measures 3.2 x 2.2 x 2.3 cm. 2.2 cm corpus luteal cyst.. FREE FLUID: None. INTRAUTERINE GESTATIONAL SAC(s) (size/shape): Single. . YOLK SAC: Identified POLE: Identified CRL 2 cm. ESTIMATED GESTATION AGE: 8 weeks and 3 days. HEART MOTION: 180 bpm. PLACENTA: Not visualized due to age. SUBCHORIONIC HEMORRHAGE: None. AMNIOTIC FLUID: Qualitatively normal. US/Transvaginal w/Preg US IMPRESSION: Single live intrauterine . Estimated gestational age is 8 weeks and 3 days. Electronically Signed: Shiraz Escobar MD at 21:21 EST ,
== END 2021-09-10 23:59 | disposition short-term general hospital (02) ==
PROVIDERS: PCP Internal Medicine; Visit Provider Nurse Practitioner Women's Health
DX: O36.80X0 Pregnancy with inconclusive fetal viability, not applicable or unspecified (principal)
CPT/HCPCS: 76817

== ENCOUNTER 2021-09-16 11:40 | Outpatient (CLI) | payer OTHER, SELFPAY ==
[2021-09-16 12:29] LABS: Absolute Lymphocyte Count 1.15 X10^3/uL (0.83-4.51); Basophil# 0.02 X10^3/uL; Basophil% 0.2 % (0-1); Eosinophil# 0.03 X10^3/uL; Eosinophils% 0.3 % (0-5); Hematocrit 36.4 % (37-47); Hemoglobin 13.2 g/dL (12.0-15.0); Lymphocyte # 1.15 X10^3/ul (0.83-4.51); Lymphocyte % 13.2 % (19-41); Mean Corp Hgb Conc 36.3 g/dL (32-36); Mean Corpuscular Hgb 31.9 pg (27.0-32.0); Mean Corpuscular Volume 87.9 fL (81-99); Mean Platelet Vol. 11.1 fl (6.2-12.0); Monocyte% 4.6 % (0-10); NRBC Flagged by Analyzer 0 % (0-5); Neutrophil # 7.03 X10^3/uL (2.7-7.7); Neutrophil % 81.1 % (47-70); Platelet Count 229 K/mm3 (150-450); RBC Distribution Width SD 38.4 fl (35.1-43.9); Red Blood Count 4.14 M/mm3 (4.2-5.4); White Blood Count 8.7 K/mm3 (4.4-11.0)
[2021-09-16 13:25] LABS: HIV - WCH Non-Reactive (Nonreactive); Hepatitis B Surface Antigen Non-Reactive (Nonreactive); Hepatitis C Antibody Non-Reactive (Nonreactive); Rubella IgG Reactive (Nonreactive); Syphilis Antibodies Non-reactive
[2021-09-16 13:42] LABS: Amphetamine Urine VISTA NEGATIVE (<1000 ng/mL); Barbiturate Urine VISTA NEGATIVE (< 200 ng/mL); Benzodiazepine Urine VISTA NEGATIVE (< 200 ng/mL); Cocaine Urine VISTA NEGATIVE (< 300 ng/mL); Ecstacy Urine VISTA NEGATIVE (< 500 ng/mL); Methadone Urine VISTA NEGATIVE (< 300 ng/mL); PCP Urine VISTA NEGATIVE (< 25 ng/mL); THC Urine VISTA NEGATIVE (< 50 ng/mL); Vista UDS pH Range 5
[2021-09-20 01:06] LABS: Chlamydia By Nucleic Acid AMP Negative (Negative)
[2021-09-20 09:54] LABS: Gonococcus By Nucleic Acid AMP Negative (Negative)
== END 2021-09-16 23:59 | disposition short-term general hospital (02) ==
PROVIDERS: PCP Internal Medicine; Referring Provider Obstetrics & Gynecology; Visit Provider Obstetrics & Gynecology
DX: Z34.90 Encounter for supervision of normal pregnancy, unspecified, unspecified trimester (principal)
CPT/HCPCS: 36415; 80307; 85025; 86703; 86762; 86780; 86803; 86850; 86870; 86900; 86901; 87086; 87088; 87340; 87491; 87591

== ENCOUNTER 2021-10-01 16:46 | Outpatient (CLI) | payer OTHER, SELFPAY ==
[2021-10-01 18:22] LABS: Amphetamine Urine VISTA NEGATIVE (<1000 ng/mL); Barbiturate Urine VISTA NEGATIVE (< 200 ng/mL); Benzodiazepine Urine VISTA NEGATIVE (< 200 ng/mL); Cocaine Urine VISTA NEGATIVE (< 300 ng/mL); Ecstacy Urine VISTA NEGATIVE (< 500 ng/mL); Methadone Urine VISTA NEGATIVE (< 300 ng/mL); PCP Urine VISTA NEGATIVE (< 25 ng/mL); THC Urine VISTA NEGATIVE (< 50 ng/mL); Vista UDS pH Range 6
== END 2021-10-01 23:59 | disposition home or self-care (01) ==
LOC: LABSPEC 16:48
PROVIDERS: PCP Internal Medicine; Visit Provider Obstetrics & Gynecology
DX: Z34.81 Encounter for supervision of other normal pregnancy, first trimester (principal); Z87.440 Personal history of urinary (tract) infections; Z3A.11 11 weeks gestation of pregnancy
CPT/HCPCS: 80307; 87086; 87088

== ENCOUNTER → 2022-01-26 | Outpatient (CLI) | payer OTHER, SELFPAY ==
[2022-01-26 15:12] LABS: Absolute Lymphocyte Count 1.57 X10^3/uL (0.83-4.51); Basophil# 0.03 X10^3/uL; Basophil% 0.3 % (0-1); Eosinophil# 0.09 X10^3/uL; Eosinophils% 0.9 % (0-5); Hematocrit 32.9 % (37-47); Hemoglobin 11.3 g/dL (12.0-15.0); Lymphocyte # 1.57 X10^3/ul (0.83-4.51); Lymphocyte % 15.2 % (19-41); Mean Corp Hgb Conc 34.3 g/dL (32-36); Mean Corpuscular Hgb 30.6 pg (27.0-32.0); Mean Corpuscular Volume 89.2 fL (81-99); Mean Platelet Vol. 11.2 fl (6.2-12.0); Monocyte# 0.58 X10^3/uL; Monocyte% 5.6 % (0-10); NRBC Flagged by Analyzer 0 % (0-5); Neutrophil # 7.97 X10^3/uL (2.7-7.7); Neutrophil % 77.1 % (47-70); Platelet Count 171 K/mm3 (150-450); RBC Distribution Width CV 12.4 % (11.6-14.6); RBC Distribution Width SD 40.2 fl (35.1-43.9); Red Blood Count 3.69 M/mm3 (4.2-5.4); White Blood Count 10.3 K/mm3 (4.4-11.0)
== END | disposition home or self-care (01) ==
LOC: LAB 14:36
PROVIDERS: Obstetrics & Gynecology; PCP Internal Medicine; Visit Provider Nurse Practitioner Women's Health
DX: O26.899 Other specified pregnancy related conditions, unspecified trimester (principal); Z67.91 Unspecified blood type, Rh negative
CPT/HCPCS: 36415; 85025; 86850; 86900; 86901

== ENCOUNTER → 2022-01-28 | Outpatient (CLI) | payer OTHER, SELFPAY ==
[2022-01-28 17:07] LABS: Glucose Challenge Gest 1H 50g 91 mg/dL (70-140)
== END | disposition home or self-care (01) ==
LOC: LAB 14:55
PROVIDERS: PCP Internal Medicine; Referring Provider Obstetrics & Gynecology; Visit Provider Obstetrics & Gynecology
DX: Z34.80 Encounter for supervision of other normal pregnancy, unspecified trimester (principal)
CPT/HCPCS: 36415; 82950

== ENCOUNTER → 2022-03-25 | Outpatient (CLI) | payer OTHER, SELFPAY | END | disposition home or self-care (01) | LOC: LABSPEC 16:41 | PROVIDERS: PCP Internal Medicine; Referring Provider Obstetrics & Gynecology; Visit Provider Obstetrics & Gynecology | DX: Z34.80 Encounter for supervision of other normal pregnancy, unspecified trimester (principal) | CPT/HCPCS: 87077; 87081; 87186 ==

== ENCOUNTER → 2022-03-29 | Outpatient (CLI) | payer OTHER, SELFPAY ==
--- NOTE | 2022-03-29 14:23 | US_ITS ---
STUDY: SECOND AND THIRD TRIMESTER OBSTETRICAL ULTRASOUND - LIMITED REASON FOR EXAM: Female, 36 years old. growth PRIOR ULTRASOUND: Sep 10 2021 6:21pm TECHNIQUE: Transabdominal TECHNICAL QUALITY: Adequate. FINDINGS: There is a single intrauterine fetus. The fetus is in a cephalic presentation. There is demonstrated cardiac activity with a heart rate of 144 bpm. There is a normal amniotic fluid volume. The largest amniotic fluid pocket measures 5.1 cm. The amniotic fluid index (RUSSELL) is 11.1 cm. The placenta is fundal in location. There are Grade 3 placental changes. The cervix is obscured by overlying bowel gas and cannot be identified. . BIOMETRY: BPD: 87 mm: 35 weeks, 2 days HC: 324 mm: 36 weeks, 4 days AC: 336 mm: 37 weeks, 4 days FL: 70 mm: 36 weeks, 0 days CI: 77 FL/AC: 21 FL/BPD: 81 HC/AC: 0.96 age by current US: 36 weeks, 5 days. ALVAREZ by current US: 9.8.22. Estimated weight: 3048 grams, +/- 457 grams, 55 %. Age by LMP: 36 weeks, 6 days. ALVAREZ by LMP: 9.7.22. US/OB Limited With Biometrics IMPRESSION: There is a single live intrauterine with a heart rate of 144 bpm. age by current US: 36 weeks, 5 days. ALVAREZ by current US: 9.8.22. Estimated weight: 3048 grams, +/- 457 grams, 55 %. Electronically Signed: Arvind Prasad MD at 15:36 EDT ,
== END | disposition home or self-care (01) ==
LOC: US 14:21
PROVIDERS: PCP Internal Medicine; Referring Provider Obstetrics & Gynecology; Visit Provider Obstetrics & Gynecology
DX: O09.513 Supervision of elderly primigravida, third trimester (principal); Z3A.36 36 weeks gestation of pregnancy
CPT/HCPCS: 76816

== ENCOUNTER → 2022-04-08 | Outpatient (CLI) | payer OTHER, SELFPAY | END | disposition home or self-care (01) | LOC: LABSPEC 11:01 | PROVIDERS: PCP Internal Medicine; Visit Provider Obstetrics & Gynecology | DX: Z34.90 Encounter for supervision of normal pregnancy, unspecified, unspecified trimester (principal); Z20.822 Contact with and (suspected) exposure to COVID-19 | CPT/HCPCS: 87635; U0003 ==

== ENCOUNTER 2022-04-14 09:45 | Inpatient (IN) | payer OTHER, SELFPAY ==
[2022-04-14] VITALS (18 sets, daily range): BP systolic 99–122; BP diastolic 48–71; PULSE 70–100; RESP 16–17; TEMP 36.1–36.7; O2SAT 97–100; BMI 26.4
[2022-04-14] MEDS: Lactated Ringers 1,000 ML 999 ML IV (10:15)
[2022-04-14 10:29] LABS: Absolute Lymphocyte Count 1.56 X10^3/uL (0.83-4.51); Absolute Neutrophil Count 7.3 X10^3/uL (2.0-7.7); Basophil# 0.02 X10^3/uL; Basophil% 0.2 % (0-1); Eosinophil# 0.03 X10^3/uL; Eosinophils% 0.3 % (0-5); Hematocrit 35.9 % (37-47); Hemoglobin 12.3 g/dL (12.0-15.0); Lymphocyte # 1.56 X10^3/ul (0.83-4.51); Lymphocyte % 16.4 % (19-41); Mean Corp Hgb Conc 34.3 g/dL (32-36); Mean Corpuscular Hgb 30.2 pg (27.0-32.0); Mean Corpuscular Volume 88.2 fL (81-99); Mean Platelet Vol. 12.4 fl (6.2-12.0); Monocyte# 0.52 X10^3/uL; Monocyte% 5.5 % (0-10); NRBC Flagged by Analyzer 0 % (0-5); Neutrophil # 7.33 X10^3/uL (2.7-7.7); Neutrophil % 77.1 % (47-70); Platelet Count 155 K/mm3 (150-450); RBC Distribution Width CV 13.6 % (11.6-14.6); RBC Distribution Width SD 43.8 fl (35.1-43.9); Red Blood Count 4.07 M/mm3 (4.2-5.4); White Blood Count 9.5 K/mm3 (4.4-11.0)
[2022-04-14] MEDS: Acetaminophen 500 MG Tablet 1000 MG PO ×3 (11:00→23:53)
[2022-04-14] MEDS: Lactated Ringers 1,000 ML 150 ML IV (11:19)
--- NOTE | 2022-04-14 11:25 | NURSING ---
upon auscultation irregular heart beat noted, after extended auscultation heart beat noted to be regular. pt reports feeling heart beat beat irregularly and is aware when she is in SVT but converts independently.
[2022-04-14] MEDS: Sodium Citrate/Citric Acid 30 ML UDC PO (11:53)
[2022-04-14] MEDS: Cefazolin 2 GM in 0.9% Normal Saline 100 ML IV (12:11)
[2022-04-14] MEDS: Methylergonovine 0.2 MG/ML Ampul IM (12:38)
[2022-04-14] MEDS: Oxytocin 30 units/NS 500 ml 30 UNITS/500 ML IV.SOLN 167 UNITS IV (13:20)
--- NOTE | 2022-04-14 13:25 | HP.PCM_ITS ---
History and Physical Intake Vital Signs ? 10/29/2214:52 04/08/2209:41 04/08/2209:43 Height 5 ft 5 in 5 ft 5 in 5 ft 5 in Weight: ? ? 159 lb 6 oz BMI ? ? 26.5 BP ? ? 118/72 Intake Visit Reasons:?38WK OB Allergies amoxicillin Adverse Reaction (Mild, Verified 04/08/22 09:43) Vomitingerythromycin base Adverse Reaction (Mild, Verified 04/08/22 09:43) Vomitingazithromycin Adverse Reaction (Verified 04/08/22 09:43) Vomiting Medications albuterol sulfate 90 mcg/actuation aerosol inhaler (ProAir HFA) 1 puff inhalation Q6H PRN asthma attack 07/29/19 [History Confirmed 04/08/22] 103-folic acid 400 mcg-omeg3 32.5 mg-dha-fish oil chew tablet 2 ea PO DAILY 07/15/20 [History Confirmed 04/08/22] budesonide 90 mcg/actuation breath activated powder inhaler 1 inh inhalation BID 12/24/21 [History Confirmed 04/08/22] famotidine 20 mg tablet (Pepcid) 20 mg PO BID #60 tabs 12/24/21 [Rx Confirmed 04/08/22] meclizine 12.5 mg tablet 12.5 mg PO TID PRN motion sickness #90 tabs 12/24/21 [Rx Confirmed 04/08/22] docusate sodium 100 mg capsule (Colace) 100 mg PO DAILY 01/26/22 [History Confirmed 04/08/22] Last Menstral Period: 07/14/21 Zika: Zika virus screening: Negative : No PFSH PFSH Surgical History? Delivery by section History of wisdom tooth extraction, class II edentulism Family History? Father auto immune disorder ?? ? psoriatic arthritis. Cancer ?? ? multiple tumors with mets, no definitive primary. Possibly melanoma Heart disease ?? ? AFIBMother DiabetesGrandmother Kidney diseaseAunt Heart disease Social History? Smoking Status:? Never smoker alcohol intake:? current details:? pre- substance use type:? does not use caffeine:? Yes what type of physical activity do you participate in:? walking frequency:? 3-4 times per week seatbelt use:? always do you feel safe at home:? Yes additional social history:? 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 ? ? 2 ? Elective abortions ? Hx Para ? ? ? 1 ? Spontaneous abortions ? Hx # Term Pregnancies ? ? ? 1 ? Ectopic pregnancies ? Hx # Pregnancies ? Multiple births ? # of living children ? ? ? 1 Past Pregnancies Del. Date Name GA/Weeks Outcome Route Bth Weight Infant Gen Labor Lgth Anesthesia Del Locatn Provider FOB 07/16/20 Meron 40 live - full term C- section ? Female ? epidural [facility] ? Delivery Date: 07/16/20? Last Updated by: Mariana English ? ? ? arrest of descent HPI 38WK OB Details: JEANETH RICHARDSON is a 36 year old who presents for routine OB visit. OB Visit [facility] Calculator ? Estimated Delivery Date Method Current WG Current Estimate 04/20/22 LMP (Uncertain) 38w 2d Other Estimates 04/16/22 Ultrasound #1 38w 6d Expected Delivery Route/Plan RLTCS Specific Issue/Plans Covid status: vaccinated Flu vaccine: vaccinated Tdap vaccine: given Rhogam: given LARC form signed: declined movement and labor precautions reviewed. Problem list reviewed and updated with the most current plan of care details and appropriate orders placed.? Relevant counseling for the gestational age provided. Continue routine care and follow up unless otherwise noted in visit notes/problem list details Initial Weight:?139 lb Date -?-?-?-?-?-?-?-?-?-?-?-?- EGA Weight BP Urine Prot -?-?-?-?-?-?-?-?-?-?-?-?- Glucose FHR FuHt Pres Dilation -?-?-?-?-?-?-?-?-?-?-?-?- Effaced St Visit Note 09/16/21-?-?-?-?-?-?-?-?-?-?-?-?- 9w 1d 139 lb(+0 oz) 120/86 -?-?-?-?-?-?-?-?-?-?-?-?- ? 170 ? ? -?-?-?-?-?-?-?-?-?-?-?-?- ? ? SM- CRL cons with LMP SM- CRL 2.6cm cons with LMP 10/01/21-?-?-?-?-?-?-?-?-?-?-?-?- 11w 2d 144 lb(+5 lb) 114/80 -?-?-?-?-?-?-?-?-?-?-?-?- ? 145 ? ? -?-?-?-?-?-?-?-?-?-?-?-?- ? ? SM- no vb cramping 10/29/21-?--?-?-?-?-?-?-?-?-?-?-?- 15w 2d 144 lb 6 oz(+5 lb 6 oz) 118/78 Negative -?-?-?-?-?-?-?-?-?-?-?-?- Negative 150 ? ? -?-?-?-?-?-?-?-?--?-?-?-?- ? ? JV- no lof, vaginal bleeding, or cramping. test pos for opiods was likely due to eating poppy seeds. Pt reassured. follow up test was neg. anatomy scan ordered. 11/26/21-?-?-?-?-?-?-?-?-?-?-?-?- 19w 2d 143 lb 4 oz(+4 lb 4 oz) 114/70 Negative -?-?-?-?-?-?-?-?-?-?-?-?- Negative 150 ? ? -?-?-?-?-?-?-?-?-?-?-?-?- ? ? SM- no vb lof good fm still having emesis but stable. 12/24/21-?-?-?-?-?-?-?-?-?-?-?-?- 23w 2d 148 lb 2 oz(+9 lb 2 oz) 118/78 Negative -?-?-?-?-?-?-?-?-?-?-?-?- Negative 145 23 ? -?-?-?-?-?-?-?-?-?-?-?-?- ? ? JV- pt has yeast infetion today. requesting diflucan. pepcid and meclazine ordered. will be going to [place] for vacation 01/26/22-?-?-?-?-?-?-?-?-?-?-?-?- 28w 0d 149 lb 8 oz(+10 lb 8 oz) 126/76 Negative -?-?-?-?-?-?-?-?-?-?-?-?- Negative 145 29 ? -?-?-?-?-?-?-?-?-?-?-?-?- ? ? JV- received rhogam, tdap, and needs to re-do glucola 02/11/22-?-?-?-?-?-?-?-?-?-?-?-?- 30w 2d 153 lb 6 oz(+14 lb 6 oz) 112/76 Negative -?-?-?-?-?-?-?-?-?-?-?-?- Negative 145 31 ? -?-?-?-?-?-?-?-?-?-?-?-?- ? ? SM- no vb lof good fm no regular ctx? discussed reflux management 02/25/22-?-?-?-?-?-?-?-?-?-?-?-?- 32w 2d 158 lb(+19 lb) 124/62 Negative -?-?-?-?-?-?-?-?-?-?-?-?- Negative 140 32 ? -?-?-?-?-?-?-?-?-?-?-?-?- ? ? SM- no vb lof good fm no regualr ctx 03/09/22-?-?-?-?-?-?-?-?-?-?-?-?- 34w 0d 157 lb(+18 lb) 112/60 Negative -?-?-?-?-?-?-?-?-?-?-?-?- Negative 144 34 ? -?-?-?-?-?-?-?-?-?-?-?-?- ? ? MH-No vB, LOF. Good FM. Denies concerns. 03/25/22-?-?-?-?-?-?-?-?-?-?-?-?- 36w 2d 157 lb 4 oz(+18 lb 4 oz) 110/74 Negative -?-?-?-?-?-?-?-?-?-?-?-?- Negative 140 34 ? -?-?-?-?-?-?-?-?-?-?-?-?- ? ? SM- no vb lof good fm no regular ctx gbs done growth ordered 04/01/22-?-?-?-?-?-?-?-?-?-?-?-?- 37w 2d 160 lb(+21 lb) 120/72 Negative -?-?-?-?-?-?-?-?-?-?-?--?- Negative 145 37 Cephalic 1-?-?-?-?-?-?-?-?-?- ?-?-?- ? ? SM- no vb lof good fm no reuglar ctx 04/08/22-?-?-?-?-?-?-?-?-?-?-?-?- 38w 2d 159 lb 6 oz(+20 lb 6 oz) 118/72 Negative -?-?-?-?-?-?-?-?-?-?-?-?- Negative 145 38 Cephalic 1-?-?-?-?-?-?-?-?-?- ?-?-?- ? ? SM- no vb lof good fm no regular ctx ACOG First Trimester First Trimester: Desire for , Alcohol, Tobacco Cessation, Illicit/Recreational Drug/Substance Use, Intimate Partner Violence, Barriers to care, Unstable Housing, Communication Barriers, Environmental/Work Hazards, Anticipated Course of Care, Toxoplasmosis Precations, Use of Any medications, Sexual activity, Exercise, Dental Care, Sauna/Hot tub use, Seat Belt use, Childbirth classes/Hospital facilities, , Travel, Indications for Ultrasound and Screening for Aneuploidy Second Trimester Second Trimester: Signs and Symptoms of Labor, Selecting a care provider, Reproductive Life Planning & Contreception, Care Planning, Tobacco Cessation, Depression/Anxiety and Intimate Partner Violence Third Trimester Third Trimester: Pain Management Plans, Labor support person(s), Immediate Larc, Movement Monitoring and Infant Feeding Yes ; Discussed Trial of Labor after Counseling and Discussed Circumcision preference Diagnostics Diagnostics Diagnostics: ?? ? Blood Type AB NEGATIVE ?? ? Antibody Screen NEGATIVE ?? ? Glucose 1 Hr 50 gm 91 mg/dL (70-140) ?? ? Hgb 11.3 g/dL (12.0-15.0)? L ?? ? Hct 32.9 % (37-47)? L Details: HIV: Urine Culture: Sequential Screen: NIPT Screen: ROS Const Reports system reviewed and no additional complaints, except as documented Card Reports system reviewed and no additional complaints, except as documented Resp Reports system reviewed and no additional complaints, except as documented GI Reports system reviewed and no additional complaints, except as documented and Reports nausea Reports system reviewed and no additional complaints, except as documented Musc Reports system reviewed and no additional complaints, except as documented Exam Const General: cooperative, healthy appearing, comfortable and anxious HENOH Head: normal to inspection Nose: external nose normal Face and sinus: normal facial exam Neck Neck: normal visual inspection, full ROM and no lymphadenopathy Thyroid: thyroid normal Chest Chest palpation & inspection: normal inspection of the chest Resp Effort & Inspection: normal respiratory effort GI Inspection: normal to inspection Palpation: soft and other (gravid uterus) Other: vertex and appropriate size for gestational age Other: Cervical Exam: Extrem General: pedal edema Results POC Urinalysis 2 Dip? (Clinic) Office Urine Glucose Negative ? ? Last Edit by Eleni English on 04/08/22 09:5 0 Office Urine Protein Negative ? ? Last Edit by Eleni English on 04/08/22 09:5 0 Coding Level of Care Code OB Routine Diagnoses GBS (group B Streptococcus carrier), +RV culture, currently ? O99.820 Rh negative status during ? O26.899; Z67.91 Supervision of other normal ? Z34.80 ? Z3A.38 ? ? ? Weeks of gestation: 38 weeks History of supraventricular tachycardia? Z86.79 History of ? Z98.891 Asthma? J45.909 Assessment and Plan Assessment and Plan (1) GBS (group B Streptococcus carrier), +RV culture, currently : ?Status:?Acute ?Comment: treat with PCN in labor (2) Rh negative status during : ?Status:?Acute ?Comment: rhogam prn with bleeding, 28 wk and pp (3) Supervision of other normal : ?Status:?Acute ?Comment: PRR ALVAREZ 04/20/22 girl PC: Meron. Spouse:Derian (4) : ?Status:?Acute ?Qualifiers: ?Weeks of gestation:?38 weeks? Qualified Code(s):?Z3A.38 - 38 weeks gestation of ?Comment: declines carrier and genetic screen. Anatomy US normal. 03/29/22 nl growth US. (5) History of supraventricular tachycardia: ?Status:?Acute ?Comment: not problematic (6) History of : ?Status:?Acute ?Comment: CPD, pushed for 4 hours. plan RLTCS. RLTCS scheduled for? ? ? 04/14 @ 12 with SM (7) Asthma: ?Status:?Acute ?Comment: singular, ProAir stable controlled by PCP ? ? ? Orders: Orders UPDATE- I have seen the patient and performed any clinically relevant updates to the history and physical exam. Sonya Benoit MD
--- NOTE | 2022-04-14 13:26 | EX.PCM.OBRPT ---
Assessment & Plan (1) Asthma: COMMENT: singular, ProAir stable controlled by PCP (2) History of : COMMENT: CPD, pushed for 4 hours. plan RLTCS. RLTCS scheduled for 04/14 @ 12 with SM (3) History of supraventricular tachycardia: COMMENT: not problematic (4) : QUALIFIERS: Weeks of gestation: 38 weeks Qualified Code(s): Z3A.38 - 38 weeks gestation of COMMENT: declines carrier and genetic screen. Anatomy US normal. 03/29/22 nl growth US. COVID Negative 04/08/22 (5) Supervision of other normal : COMMENT: PRR ALVAREZ 04/20/22 girl PC: Meron. Spouse:Derian (6) Rh negative status during : COMMENT: rhogam prn with bleeding, 28 wk and pp (7) GBS (group B Streptococcus carrier), +RV culture, currently : COMMENT: treat with PCN in labor (8) delivery delivered: COMMENT: RLTCS 39 girl Maternal Data Information AL[facility]Z Calculator Estimated Delivery Date Method Current WG Current Estimate 04/20/22 LMP (Uncertain) 39w 1d Other Estimates 04/16/22 Ultrasound #1 39w 5d Final AL[facility]Z Source: LMP Details Operative Information Date of Procedure: 04/14/22 Pre-Operative Diagnosis: Previous Post-Operative Diagnosis: same Indications for : Repeat Elective Classification: Scheduled 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 Delvalle catheter was placed. The patient was placed in the dorsal supine position with leftward tilt. Patient was prepped and draped in the normal sterile fashion. Pfannenstiel skin incision was made with the scalpel and carried through to the underlying layer of fascia with the scalpel. Fascia was nicked in the midline and the incision extended laterally. The rectus bellies were dissected off superiorly and inferiorly with out complication both sharply and bluntly. The peritoneum was entered digitally. The incision was stretched and a low transverse uterine incision was made with the scalpel. The infant's head was delivered atraumatically followed by the anterior and posterior shoulders without complication the rest of the delivered. The cord was clamped and cut and the infant was handed off to awaiting nurse. The placenta was delivered spontaneously immediately following and was noted to be intact and have a three-vessel cord. The uterus was exteriorized cleared of all clots and debris, and the incision was closed in a double layer closure using #1 Monocryl. The ovaries and fallopian tubes were noted to be within normal limits. The uterus was returned to the maternal abdomen and gutters were cleared of all clots and debris. The peritoneum was closed with 3-0 Monocryl in a running fashion. Gloves were changed prior to fascial closure. Fascia was closed with 0 PDS in a running fashion. Subcutaneous tissue was copiously irrigated and the skin was closed with 3-0 Monocryl in a subcuticular fashion. Mepilex dressing was applied without complication. Patient was taken to recovery in stable condition. It was discussed with the patient that based on the clinical information obtained during this encounter, combined with her history, at this time I would recommend cesareans for future deliveries if further pregnancies are desired. Amniotic Membrane Rupture Type: Artificial Amniotic Fluid Description: Clear Placenta Disposition: [facility] Cord Vessel Description: 3 Vessels Cord Entanglement: None Infant A Gender: Female Delayed Cord Clamping: Yes Complications Risks of Surgery Discussed w/Patient: Bleeding, Infection, Need for Future C-Sections and Injury to surrounding structure(s) including bowel and bladder Vaginal Delivery Complication Complications: None Admit VTE Documentation VTE Present on Admission: No VTE Mechan Device Prophylaxis: SCD's Procedures Urinary/Genital [id number]: [id number] Delivery [facility]
--- NOTE | 2022-04-14 13:29 | DCINST_ITS ---
Discharge Instructions Diet Discharge Diet: No restrictions Activity Discharge Activity: Return to Normal Activity, May Drive (when pain free and off narcotic pain meds), May Shower and May Take a Tub Bath (in 4 weeks) May resume sexual activity in: 6 weeks Weight Bearing Status: Full weight bearing Lifting Restrictions: under 30 lbs for 6 weeks Dressing / Incision Call your doctor if your incision/area has: Continuous Slow Oozing, Sudden Increased Bleeding, Increased Pain/ Swelling, Increased Redness, Foul Smelling Discharge and - Call your doctor if you observe: Fever of 101 or Higher, Using more than 1 pad per hour, Shortness of breath, Chest pain and Uncontrolled pain Suture Line Care: Avoid Pulling/Pushing and Avoid Pinching/Bending Change Dressing in: 1 week (leave open to air after removed) Remove Dressing in: 1 week (if present) Cleanse incision/area with: Soap & Water and Keep Dressing Clean & Dry Follow Up Care Please Follow Up With: Sonya Benoit MD When: Call to make an appointment with your doctor for a postop visit in 2 and 6 weeks. Test Results: Test results from this visit will be discussed in further detail at your follow- up appointment, if applicable. Discharge Plan Admission Admit Date/Time: 04/14/22 09:45 Attending Provider: Sonya Benoit Primary Care Provider: Britta Acevedo Discharge Orders/Prescriptions Prescriptions: New oxycodone-acetaminophen [Percocet] 5-325 mg tablet 1 tab PO Q6H PRN (Reason: pain) 7 Days Qty: 20 0RF naproxen [naproxen] 500 mg tablet 500 mg PO BID PRN PRN (Reason: Pain) Qty: 30 1RF No Action albuterol sulfate [ProAir HFA] 90 mcg/actuation HFA aerosol inhaler 1 puff INHALATION Q6H PRN (Reason: asthma attack) meclizine 12.5 mg tablet 12.5 mg PO TID PRN (Reason: motion sickness) Qty: 90 4RF docusate sodium [Colace] 100 mg capsule 100 mg PO DAILY PNV 135-ozcjs-zbcyq-3-fish oil 1 EACH tablet,chewable 2 ea PO DAILY diphenhydramine HCl [Unisom SleepGels] 50 mg Capsule 50 mg PO PRN PRN (Reason: Vomiting) pyridoxine (vitamin B6) [Vitamin B-6] 50 mg Tablet 50 mg PO PRN PRN (Reason: Vomiting) famotidine [Pepcid] 20 mg tablet 20 mg PO BID Referrals / Follow Up: Britta Acevedo DO [Primary Care Provider] - Disposition Disposition (needs filled in before D/C Order can be placed): Home, Self Care
[2022-04-14] MEDS: Ketorolac 30 MG/ML Syringe IV ×2 (14:30→20:13)
[2022-04-14] MEDS: Lactated Ringers 1,000 ML 100 ML IV (16:29)
[2022-04-14] MEDS: 0.9% Saline Lock 10 ML Syringe IV ×2 (20:13→21:52)
[2022-04-14] MEDS: Famotidine 20 MG Tablet PO (21:40)
[2022-04-15] MEDS: 0.9% Saline Lock 10 ML Syringe IV ×2 (01:58→08:11)
[2022-04-15] MEDS: Ketorolac 30 MG/ML Syringe IV ×2 (01:58→08:10)
[2022-04-15 04:09] VITALS: BP 112/72; PULSE 79; RESP 18; TEMP 36.3; O2SAT 96
[2022-04-15 05:26] LABS: Hematocrit 29.6 % (37-47); Hemoglobin 9.8 g/dL (12.0-15.0); Mean Corp Hgb Conc 33.1 g/dL (32-36); Mean Corpuscular Hgb 30.1 pg (27.0-32.0); Mean Corpuscular Volume 90.8 fL (81-99); Platelet Count 123 K/mm3 (150-450); RBC Distribution Width SD 46.2 fl (35.1-43.9); Red Blood Count 3.26 M/mm3 (4.2-5.4); White Blood Count 12.9 K/mm3 (4.4-11.0)
[2022-04-15] MEDS: Acetaminophen 500 MG Tablet 1000 MG PO ×3 (05:50→18:05)
[2022-04-15 08:15] VITALS: BP 110/72; PULSE 73; RESP 15; TEMP 36.4; O2SAT 97
--- NOTE | 2022-04-15 08:30 | PCM.PN.OB ---
Subjective Subjective Patient doing well without complaints. Tolerating PO. Ambulating and voiding without difficulty. feeding well. Denies chest pain, shortness of breath, calf pain/swelling, fevers, chills, lightheadedness. Objective Data Objective Data Vital Signs: Vital Signs Temp Pulse Resp BP Pulse Ox O2 Del Method 97.3 F L 79 18 112/72 96 Room Air 04/15/22 04:04/15/22 04:04/15/22 04:04/15/22 04:04/15/22 04:04/15/22 04:09 Oxygen Delivery Method Room Air Weight: 159 lb 4 oz Body Mass Index (BMI) 26.4 Intake & Output: Intake and Output for Last 24 Hours 04/13/22 04/14/22 04/15/22 23:59 23:59 23:59 Intake Total 2974.17 / 2974.17 Output Total 1650 / 1650 925 / 925 Balance 1324.17 / 1324.17 -925 / -925 Lab / Micro Data Result Diagrams: 04/15/22 05:20 Labs: Laboratory Results - last 24 hr 04/14/22 10:15: WBC 9.5, RBC 4.07 L, Hgb 12.3, Hct 35.9 L, MCV 88.2, MCH 30.2, MCHC 34.3, RDW Std Deviation 43.8, RDW Coeff of Jenn 13.6, Plt Count 155, MPV 12.4 H, Immature Gran % (Auto) 0.500, Neut % (Auto) 77.1 H, Lymph % (Auto) 16.4 L, [place] % (Auto) 5.5, Eos % (Auto) 0.3, Baso % (Auto) 0.2, Absolute Neuts (auto) 7.3, Absolute Lymphs (auto) 1.56, Nucleated RBC % 0 04/14/22 10:15: Blood Type AB NEGATIVE, Antibody Screen NEGATIVE 04/15/22 05:20: WBC 12.9 H, RBC 3.26 L, Hgb 9.8 L, Hct 29.6 L, MCV 90.8, MCH 30.1, MCHC 33.1, RDW Std Deviation 46.2 H, RDW Coeff of Jenn 14.0, Plt Count 123 L, MPV 12.0 ROS Constitutional Constitutional: Reports systems reviewed and no addt'l complaints, except as documented Cardiovascular Cardiovascular: Reports systems reviewed and no addt'l complaints, except as documented Respiratory/Chest Respiratory/Chest: Reports systems reviewed and no addt'l complaints, except as documented Gastrointestinal Gastrointestinal: Reports systems reviewed and no addt'l complaints, except as documented Physical Exam Const alert, oriented x3 and no apparent distress HEENT Head and Scalp: atraumatic Resp normal respiratory effort GI soft to palpation and non-tender Inspection: incision intact, healing well and drainage (none) Bimanual Exam - Vag & Uterus: uterus non-tender Uterus Palpation: uterus fundus firm (below Umbilicus) Assessment & Plan (1) delivery delivered: COMMENT: RLTCS 39 girl ?Maira (2) Asthma: COMMENT: singular, ProAir stable controlled by PCP (3) Rh negative status during : COMMENT: rhogam prn with bleeding, 28 wk and pp PLAN: Plan s/p LTCS PPD # 1 1. routine post care 2. breast feeding- support given 3. rh neg rhogam PRN 4. rubella immune
--- NOTE | 2022-04-15 08:33 | NURSING ---
Pt states when she uses the bathroom, she feels like she has some urine retention and is unable to fully void all urine out of her bladder. Previous voids through out the night have been adequate amounts measured by nightshift RN.
[2022-04-15] MEDS: Senna/Docusate Sodium 1 Tablet PO (10:35)
[2022-04-15] MEDS: Famotidine 20 MG Tablet PO ×2 (10:35→22:35)
[2022-04-15 12:00] VITALS: BP 96/53; PULSE 75; RESP 15; TEMP 36.5; O2SAT 97
[2022-04-15] MEDS: Naproxen 500 MG Tablet PO ×2 (14:41→22:35)
[2022-04-15 16:26] VITALS: BP 114/72; PULSE 83; RESP 14; TEMP 36.6
--- NOTE | 2022-04-15 17:57 | NURSING ---
Reviewed and agreed with Susan RN charting.
[2022-04-15 21:00] VITALS: BP 133/75; PULSE 94; RESP 16; TEMP 36.7; O2SAT 98
[2022-04-16] MEDS: Acetaminophen 500 MG Tablet 1000 MG PO ×3 (00:09→12:34)
[2022-04-16 02:10] VITALS: BP 110/65; PULSE 78; RESP 16; TEMP 36.3; O2SAT 97
[2022-04-16] MEDS: Naproxen 500 MG Tablet PO ×2 (06:21→14:21)
[2022-04-16] MEDS: Senna/Docusate Sodium 1 Tablet PO (09:54)
[2022-04-16] MEDS: Famotidine 20 MG Tablet PO (09:54)
[2022-04-16 10:00] VITALS: BP 119/80; PULSE 92; RESP 14; TEMP 36.8; O2SAT 98
--- NOTE | 2022-04-16 10:45 | PCM.PN.OB ---
Subjective Subjective Patient doing well without complaints. Tolerating PO. Ambulating and voiding without difficulty. Feeding well. Denies chest pain, shortness of breath, calf pain/swelling, fevers, chills, lightheadedness. Objective Data Objective Data Vital Signs: Vital Signs Temp Pulse Resp BP Pulse Ox O2 Del Method 98.2 F 92 14 119/80 98 Room Air 04/16/22 10:00 04/16/22 10:00 04/16/22 10:00 04/16/22 10:00 04/16/22 10:00 04/16/22 10:00 Oxygen Delivery Method Room Air Weight: 159 lb 4 oz Body Mass Index (BMI) 26.4 Intake & Output: Intake and Output for Last 24 Hours 04/14/22 04/15/22 04/16/22 23:59 23:59 23:59 Intake Total 2974.17 / 2974.17 Output Total 1650 / 1650 1325 / 1325 Balance 1324.17 / 1324.17 -1325 / -1325 Lab / Micro Data Result Diagrams: 04/15/22 05:20 ROS Constitutional Constitutional: Denies chills, fatigue, fever(s), poor appetite or weakness Eyes Eyes: Denies blurry vision, change in vision, seeing flashes or spots in vision ENT HEENT: Denies dizziness, headache(s), loss taste/smell or sore throat Cardiovascular Cardiovascular: Denies chest pain, dizziness, dyspnea, irregular heart rhythm, palpitations or rapid heart rate Respiratory/Chest Respiratory/Chest: Denies chest tightness, cough, dyspnea or breast pain Gastrointestinal Gastrointestinal: Denies abdominal pain, constipation or vomiting Genitourinary Genitourinary: Denies dysuria or flank pain Musculoskeletal Musculoskeletal: Denies difficulty walking, joint pain, limited range of motion or numbness Neurologic Neurologic: Denies abnormal movements, abnormal speech, dizziness, numbness, seizure-like activity or syncope Psychiatric Psychiatric: Denies anxiety, behavioral changes, change in appetite, confusion, depression or suicidal thoughts Physical Exam Const alert, oriented x3 and no apparent distress General Appearance: cooperative and comfortable Resp normal respiratory effort Cardio regular rate GI normal to inspection, nondistended, normoactive bowel sounds GI Narrative: uterus is firm below umbilicus Palpation: soft Back/Spine no CVA tenderness and thoraco-lumbar ROM normal Extremity normal to inspection, no clubbing, cyanosis or edema, no calf tenderness and no pedal edema Psych mental status grossly normal, thought process normal, cooperative, affect normal, speech normal, activity/motor behavior normal, denies homicidal ideation and denies suicidal ideation Assessment & Plan (1) delivery delivered: COMMENT: VALENTINE RLTCS 39 girl ?Maira PLAN: s/p LTCS PPD # 2 1. routine post care 2. breast feeding- support given 3. rh positive 4. rubella immune 4. pt is ready to go home today (2) Asthma: COMMENT: singular, ProAir stable controlled by PCP (3) Rh negative status during : COMMENT: rhogam prn with bleeding, 28 wk and pp
[2022-04-16 14:22] VITALS: BP 111/67; PULSE 81; RESP 16; TEMP 36.6; O2SAT 96
--- NOTE | 2022-04-20 12:49 | NURSING ---
Follow phone call completed. Spoke with Reba by phone. She is doing well. Dressing is dry and intact. vaginal bleeding is very minimal. SHe has no concerns of headache, visual changes, emotional changes. Baby is nursing well. Mother reports her milks has transitioned in and baby's stool is now yellow. No further questions or concerns.
== END 2022-04-16 16:55 | disposition home or self-care (01) | DRG 788 ==
PROVIDERS: Admitting Provider Obstetrics & Gynecology; PCP Internal Medicine; Visit Provider Obstetrics & Gynecology
PROC: 10D00Z1 Extraction of Products of Conception, Low, Open Approach (ICD-10-PCS; CPT 59514; principal; 2022-04-14 11:45)
DX: O34.219 Maternal care for unspecified type scar from previous cesarean delivery (principal); J45.909 Unspecified asthma, uncomplicated; O99.824 Streptococcus B carrier state complicating childbirth; Z37.0 Single live birth; Z20.822 Contact with and (suspected) exposure to COVID-19; O99.52 Diseases of the respiratory system complicating childbirth; Z3A.38 38 weeks gestation of pregnancy
CPT/HCPCS: 59025; 59050; 85025; 85027; 86850; 86900; 86901; 99218; J7120; A4216; G0378

== ENCOUNTER → 2022-04-26 | Outpatient (CLI) | payer OTHER, SELFPAY | END | disposition home or self-care (01) | LOC: LABSPEC 17:07 | PROVIDERS: PCP Internal Medicine; Referring Provider Obstetrics & Gynecology; Visit Provider Obstetrics & Gynecology | DX: R30.0 Dysuria (principal) | CPT/HCPCS: 87086 ==

== ENCOUNTER → 2022-05-26 | Outpatient (CLI) | payer OTHER, SELFPAY ==
[2022-05-26 14:44] LABS: Absolute Lymphocyte Count 2.12 X10^3/uL (0.83-4.51); Absolute Neutrophil Count 5.5 X10^3/uL (2.0-7.7); Basophil# 0.05 X10^3/uL; Basophil% 0.6 % (0-1); Eosinophil# 0.07 X10^3/uL; Eosinophils% 0.9 % (0-5); Hematocrit 40.2 % (37-47); Hemoglobin 14.2 g/dL (12.0-15.0); Lymphocyte # 2.12 X10^3/ul (0.83-4.51); Lymphocyte % 25.9 % (19-41); Mean Corp Hgb Conc 35.3 g/dL (32-36); Mean Corpuscular Hgb 30.8 pg (27.0-32.0); Mean Corpuscular Volume 87.2 fL (81-99); Mean Platelet Vol. 10.6 fl (6.2-12.0); Monocyte# 0.44 X10^3/uL; Monocyte% 5.4 % (0-10); NRBC Flagged by Analyzer 0 % (0-5); Neutrophil # 5.48 X10^3/uL (2.7-7.7); Neutrophil % 66.8 % (47-70); Platelet Count 235 K/mm3 (150-450); RBC Distribution Width CV 11.8 % (11.6-14.6); RBC Distribution Width SD 37.4 fl (35.1-43.9); Red Blood Count 4.61 M/mm3 (4.2-5.4); White Blood Count 8.2 K/mm3 (4.4-11.0)
== END | disposition home or self-care (01) ==
LOC: PAVLAB 14:35
PROVIDERS: PCP Internal Medicine; Referring Provider Nurse Practitioner Women's Health; Visit Provider Nurse Practitioner Women's Health
DX: D64.9 Anemia, unspecified (principal)
CPT/HCPCS: 36415; 85025

== ENCOUNTER → 2023-02-20 | Outpatient (CLI) | payer OTHER, SELFPAY ==
[2023-02-20 10:29] LABS: Bacteria 0 SEEN /hpf (None Seen); Mucous, Urine 0 SEEN /hpf (<or=2+); Red Blood Cells-Urine 0 SEEN /hpf (0-5); Squamous Epithelial Cells - UA 0 SEEN /hpf (5-10)
[2023-02-20 10:55] LABS: Color, Urine Yellow (Yellow); Glucose, Dipstick Normal (Normal); Ketone-Dipstick Negative (Negative); Leukocyte Esterase-Dipstick 500 /ul (Negative); Nitrite-Dipstick Negative (Negative); Occult Blood-Urine 150 /ul (Negative); Protein-Dipstick Negative (Negative); Specific Gravity, Urine 1.005 (1.002-1.030); Urine Bilirubin Dipstick Negative (Negative); Urine Clarity Clear (Clear); Urine Urobilinogen Normal (Normal)
[2023-02-20 11:08] LABS: White Blood Cells 0-5 SEEN /hpf (0-5)
== END | disposition home or self-care (01) ==
LOC: LABSPEC 10:15
PROVIDERS: PCP Internal Medicine; Referring Provider Physician Assistant; Visit Provider Physician Assistant
DX: R30.0 Dysuria (principal)
CPT/HCPCS: 81001; 87077; 87086; 87088

== ENCOUNTER → 2023-06-07 | Outpatient (CLI) | payer OTHER, SELFPAY ==
--- NOTE | 2023-06-07 13:02 | US_ITS ---
STUDY: ULTRASOUND OF THE FEMALE PELVIS - COMPLETE REASON FOR EXAM: Female, 38 years old. Abnormal bleeding, patient has IUD LMP: Unknown. TECHNIQUE: Transabdominal and Transvaginal TECHNICAL QUALITY: Adequate. COMPARISON: None. FINDINGS: The uterus is anteverted and is in a midline position. The uterus measures 7.8 x 5.3 x 3.6 cm. Normal uterine cervix. The endometrium measures 3.6 mm in thickness, and is hyperechoic. There is no demonstrated endometrial mass. There is no demonstrated myometrial mass. I.U.D. - The patient does have an I.U.D. IUD is fundal but offset to the right The right ovary is visualized. The right ovary measures 2.9 x 2.0 x 1.6 cm. There is no right ovarian cyst or ovarian mass. There is no visualized right adnexal mass or complex lesion. There is normal arterial and normal venous vascularity. The left ovary is visualized. The left ovary measures 3.0 x 2.2 x 1.2 cm. There is no left ovarian cyst or ovarian mass. There is no visualized left adnexal mass or complex lesion. There is normal arterial and normal venous vascularity. There is no fluid in the cul-de-sac. The bladder distends normally with estimated capacity of 606 mL US/Pelvic (Non ) IMPRESSION: No suspicious sonographic findings, IUD noted in the fundus and offset to the right. Electronically Signed: Lit Menchaca MD at 11:00 EDT ,
== END | disposition home or self-care (01) ==
PROVIDERS: PCP Family Medicine; Referring Provider Obstetrics & Gynecology; Visit Provider Obstetrics & Gynecology
DX: N92.1 Excessive and frequent menstruation with irregular cycle (principal); Z97.5 Presence of (intrauterine) contraceptive device
CPT/HCPCS: 76830; 76856

== ENCOUNTER → 2023-07-05 | Outpatient (CLI) | payer OTHER, SELFPAY ==
[2023-07-05 15:41] LABS: Absolute Lymphocyte Count 1.71 X10^3/uL (0.83-4.51); Basophil# 0.03 X10^3/uL; Basophil% 0.5 % (0-1); Eosinophil# 0.04 X10^3/uL; Eosinophils% 0.7 % (0-5); Hematocrit 42.2 % (37-47); Hemoglobin 14.3 g/dL (12.0-15.0); Lymphocyte # 1.71 X10^3/ul (0.83-4.51); Lymphocyte % 27.9 % (19-41); Mean Corp Hgb Conc 33.9 g/dL (32-36); Mean Corpuscular Hgb 30.4 pg (27.0-32.0); Mean Corpuscular Volume 89.6 fL (81-99); Mean Platelet Vol. 11.7 fl (6.2-12.0); Monocyte# 0.38 X10^3/uL; Monocyte% 6.2 % (0-10); NRBC Flagged by Analyzer 0 % (0-5); Neutrophil # 3.95 X10^3/uL (2.7-7.7); Neutrophil % 64.4 % (47-70); Platelet Count 273 K/mm3 (150-450); RBC Distribution Width CV 11.9 % (11.6-14.6); RBC Distribution Width SD 38.3 fl (35.1-43.9); Red Blood Count 4.71 M/mm3 (4.2-5.4); White Blood Count 6.1 K/mm3 (4.4-11.0)
[2023-07-05 16:19] LABS: ALB/GLOB Ratio 1.4 RATIO (0.9-2.4); AST(SGOT) 17 U/L (15-37); Alanine Aminotransfer ALT/SGPT 35 U/L (13-56); Albumin, Serum 4.2 g/dL (3.2-5.0); Alkaline Phosphatase 59 U/L (45-117); Anion Gap 7 (5-15); BUN 11 mg/dL (7-18); BUN/Creat Ratio 15.4 RATIO (10-20); Calcium,Total 8.2 mg/dL (8.5-10.1); Chloride 104 mmol/L (98-107); Creatinine, Serum 0.71 mg/dL (0.55-1.02); EST Glomerular Filtration Rate 98 mL/min (>60); Est Glom Filt Rate - Afr Amer 118 mL/min (>60); Globulin 2.9 g/dL (2.2-4.2); Glucose 69 mg/dL (74-106); Magnesium 2.1 mg/dL (1.6-2.6); Potassium 3.7 mmol/L (3.5-5.1); Protein, Total 7.1 g/dL (6.4-8.2); Sodium Level 139 mmol/L (136-145); Thyroid Stim Hormone (TSH) 1.42 uIU/mL (0.358-3.74)
== END | disposition home or self-care (01) ==
LOC: MFPLAB 11:53
PROVIDERS: PCP Family Medicine; Visit Provider Family Medicine
DX: R00.2 Palpitations (principal)
CPT/HCPCS: 36415; 80053; 83036; 83735; 84443; 85025

== ENCOUNTER → 2023-10-26 | Outpatient (CLI) | payer OTHER, SELFPAY ==
--- NOTE | 2023-10-26 16:04 | RAD_ITS ---
STUDY: X-RAY - CERVICAL SPINE REASON FOR EXAM: Female, 38 years old. Neck pain, with radiculopathy TECHNIQUE: 5 view(s) of the cervical spine were obtained. COMPARISON: None FINDINGS: Normal anterior atlantoaxial articulation. Normal odontoid process. Normal cervical lordosis. Normal vertebral bodies and endplates. Normal disc space heights. Normal visualized intervertebral neuroforamina. The soft tissue structures are unremarkable. RAD/Cerv Spine 4 or 5 Views IMPRESSION: Normal x-ray examination of the visualized cervical spine. Electronically Signed: Lit Menchaca MD at 8:39 EDT ,
--- OUTSIDE RECORDS SUMMARY | 2023-10-26 22:20 | XMS RPT_ITS | CCD ---
Author Name Unknown Address [address] [place] [address] Organization [facility] Care Team Providers Care Day Trader Name Role Phone Cy SPEARS, Sonya Bryson Unavailable [phone] Britta Acevedo Unavailable Fast Brenda A Unavailable Slarb, Louisa Unavailable Unavailable Kate Fischer Unavailable Unavailable Ale Adames Unavailable Unavailable Unavailable Unavailable Britta Acevedo DO Unavailable Fast DO Brenda A Unavailable Slarb FERMENTATION MANAGER, Louisa Unavailable Unavailable Kate Fischer Unavailable Unavailable Ale Adames Unavailable Unavailable Unavailable Unavailable Allergies Allergy Classification Reported Allergen(s) Allergy Type Date of Onset Reaction(s) Facility (8 sources) amoxicillin; Translations: [Amoxil *PENICILLINS*] Drug Allergy 06-30-2017 [facility] Medications Completed/Discontinued Medications Medication Drug Class(es) Dates Sig (Normalized) Sig (Original) [id number] 200 actuat albuterol 0.09 mg/actuat metered dose inhaler (5 sources) beta2-Adrenergic Agonist Start: 08-12-2015 End: 12-13-2016 ProAir HFA 108 (90 Base) MCG/ACT Inhalation Aerosol Solution 2 puffs Aerosol Soln qid, prn for 0 days Quantity: 1 {Inhaler} Refills: 1 Ordered: 13-Dec-2016 Slarb FERMENTATION MANAGER, Louisa Start : 12-Aug-2015 End : 13-Dec-2016 Discontinued Problems Active Problems Problem Classification Problem Date Documented Da te Episodic/Chronic Abdominal pain (12 sources) Epigastric pain; Translations: [Tenderness of right upper quadrant of abdomen] Resolved: 10-24-2014 10-24-2014 Episodic Acute and chronic tonsillitis (4 sources) Acute tonsillitis; Translations: [Acute tonsillitis] Resolved: 07-12-2012 07-24-2015 Episodic Acute bronchitis (9 sources) Acute bronchitis; Translations: [Acute bronchitis] Resolved: 06-07-2010 07-12-2012 Episodic Administrative/social admission (4 sources) Patient encounter status; Translations: [Encounter for pre-employment examination] 12-13-2016 Episodic Anxiety disorders (9 sources) Anxiety; Translations: [Anxiety] 12-13-2016 Chronic Past or Other Problems Problem Classification Problem Date Documented Date Episodic/Chronic Acute and chronic tonsillitis (2 sources) Acute and chronic tonsillitis Conditions associated with dizziness or vertigo (3 sources) Conditions associated with dizziness or vertigo Other female genital disorders (5 sources) Vaginal discharge; Translations: [Other specified noninflammatory disorders of vagina] Onset: 06-30-2017 06-30-2017 Episodic Residual codes; unclassified (2 sources) Vaccination required; Translations: [Need for prophylactic vaccination and inoculation against other specified disease] Resolved: 02-10-2009 02-10-2009 Episodic Residual codes; unclassified (2 sources) At risk of sexually transmitted infection ; Translations: [Possible exposure to STD] Resolved: 02-23-2015 02-23-2015 Episodic Unclassified (12 sources) Unspecified Diagnosis Resolved: 02-10-2009 02-10-2009 Unclassified (6 sources) Work Physical (V70.5) Unclassified (6 sources) Finding of body mass index; Translations: [BMI between 19-24,adult] 12-13-2016 Unclassified (4 sources) Patient encounter status; Translations: [Encounter for pre-employment examination] Resolved: 02-10-2009 12-13-2016 Unclassified (6 sources) strept pharyngitis- Resolved: 02-10-2009 07-12-2012 Unclassified (6 sources) Non-smoker; Translations: [Non-smoker] 12-13-2016 Unclassified (2 sources) SCREENING FOR TB (V74.1) Unclassified (4 sources) RELAPSING FEVER NOS (087.9) Unclassified (2 sources) ANOMALY, CONGENITAL, 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) Unclassified (4 sources) Abnormal Lung Sounds/Rales (786.7) Unclassified (2 sources) Leg cramps Unclassified (4 sources) Myringitis, bullous (384.01) Unclassified (2 sources) Infection of ear, external, right Unclassified (2 sources) CELLULITIS/ABSCESS, LEG (682.6) Unclassified (2 sources) BURN, MULTIPLE SITES, UNSPECIFIED DEGREE (946.0) Unclassified (2 sources) UTI symptoms Unclassified (2 sources) Urine frequency Unclassified (2 sources) Pharyngitis, acute Unclassified (4 sources) Abnormal LFTs Unclassified (2 sources) SYMPTOM, NAUSEA ALONE (787.02) Unclassified (2 sources) Flu-like symptoms Unclassified (2 sources) Eustachian tube dysfunction (381.81) Unclassified (2 sources) Otitis, right Urinary tract infections (2 sources) Urinary tract infections Results Test Name Value Interpretation Reference Range Facil ity Vital Signs Date Time Vital Sign Value Performing Clinician Facility 06-30-2017 13:12-0500 BMI (Body Mass Index) 21.8 kg/m2 Sonya Benoit MD [facility] 06-30-2017 13:12-0500 BP Diastolic 75 mm[Hg] Sonya Benoit MD [facility] 06-30-2017 13:12-0500 BP Systolic 125 mm[Hg] Sonya Benoit MD [facility] 06-30-2017 13:12-0500 Height 165.1 cm Sonya Benoit MD [facility] 06-30-2017 13:12-0500 Weight 59.42 kg Sonya Benoit MD [facility] 12-13-2016 08:07-0400 BMI (Body Mass Index) 21.97 kg/m2 Louisa Foreman LPN [facility] Work Phone: 12-13-2016 08:07-0400 Body Temperature 98.1 [degF] Louisa Foreman LPN [facility] Work Phone: 12-13-2016 08:07-0400 Body weight 59.88 kg Louisa Foreman LPN [facility] Work Phone: 12-13-2016 08:07-0400 BP Diastolic 72 mm[Hg] Louisa Foreman LPN [facility] Work Phone: Encounters Encounter Date Encounter Type Care Provider Facility Start: 12-13-2016 End: 12-13-2016 Office outpatient visit 15 minutes Britta Acevedo [facility] Start: 03-11-2016 End: 03-11-2016 Historical Summary Britta Lorenzo Freight Car Inspector al [facility] Start: 01-08-2016 End: 01-10-2016 Office outpatient visit 15 minutes Britta Acevedo [facility] Start: 12-07-2015 End: 12-07-2015 Phone Encounter Britta Lorenzo [employer]ight Car Inspector [facility] Start: 12-04-2015 End: 12-06-2015 Office outpatient visit 25 minutes Britta Acevedo [facility] Start: 12-01-2015 End: 12-01-2015 Lab Order Britta Lorenzo [employer]ight Car Inspector [facility] Start: 08-12-2015 End: 08-12-2015 Office outpatient visit 25 minutes Britta Lorenzo [facility] Start: 02-23-2015 End: 02-23-2015 Office outpatient visit 25 minutes Britta Acevedo [facility] Start: 01-16-2015 End: 01-16-2015 Phone Encounter Britta Lorenzo Freight Car Inspector al Medicine Start: 10-24-2014 End: 10-24-2014 Office outpatient visit 15 minutes Britta Acevedo [facility] Start: 06-16-2014 End: 06-16-2014 Office outpatient visit 15 minutes Britta Lorenzo [facility] Start: 05-13-2014 End: 05-13-2014 Phone Encounter Britta Lorenzo [employer]ight Car Inspector [facility] Start: 05-13-2014 End: 05-13-2014 Office outpatient visit 15 minutes Britta Acevedo [facility] Start: 04-02-2014 End: 04-02-2014 Office outpatient visit 25 minutes Britta Acevedo [facility] Start: 03-21-2014 End: 03-21-2014 Office outpatient visit 25 minutes Britta Acevedo [facility] Start: 05-22-2013 End: 05-23-2013 Patient encounter procedure Britta Lorenzo [facility] Start: 08-03-2012 End: 08-03-2012 Office outpatient visit 15 minutes Britta Lorenzo [facility] Start: 07-12-2012 End: 07-12-2012 Patient encounter procedure Britta Acevedo [facility] Start: 06-22-2012 End: 06-22-2012 Office outpatient visit 15 minutes Britta Curtis [facility] Start: 10-24-2011 End: 10-24-2011 Office outpatient visit 25 minutes Britta Curtis [facility] Start: 07-15-2011 End: 07-15-2011 Office outpatient visit 25 minutes Brittamartina Rajputon [facility] Start: 02-18-2011 End: 02-18-2011 Patient encounter procedure Britta Curtis [facility] Start: 09-03-2010 End: 09-03-2010 Patient encounter procedure Britta Rajputon [facility] Start: 08-10-2010 End: 08-10-2010 Office outpatient visit 15 minutes Britta Curtis [facility] Start: 06-30-2010 End: 06-30-2010 Patient encounter procedure Britta Acevedo [facility] Start: 06-07-2010 End: 06-07-2010 Patient encounter procedure Britta Curtis [facility] Start: 05-21-2010 End: 05-21-2010 Patient encounter procedure Britta Acevedo [facility] Start: 11-09-2009 End: 11-09-2009 Patient encounter procedure Britta Curtis [facility] Start: 11-05-2009 End: 11-05-2009 Patient encounter procedure Britta Curtis [facility] Start: 02-10-2009 End: 02-10-2009 Patient encounter procedure Britta Curtis [facility] Start: 11-10-2008 End: 11-10-2008 Patient encounter procedure Britta Curtis [facility] Start: 10-02-2008 End: 10-03-2008 Patient encounter procedure Britta Acevedo [facility] Start: 09-30-2008 End: 09-30-2008 Office outpatient visit 10 minutes Britta Acevedo [facility] Start: 09-24-2008 End: 09-24-2008 Patient encounter procedure Britta Curtis [facility] Start: 09-08-2008 End: 09-08-2008 Patient encounter procedure Britta Acevedo [facility] Start: 07-07-2008 End: 07-07-2008 Patient encounter procedure Britta Curtis [facility] Start: 06-17-2008 End: 06-17-2008 Patient encounter procedure Britta Acevedo [facility] Start: 09-11-2007 End: 09-11-2007 Patient encounter procedure Britta Acevedo [facility] Start: 07-04-2007 End: 07-04-2007 Patient encounter procedure Britta Acevedo [facility] Start: 01-10-2007 End: 01-11-2007 Patient encounter procedure Britta Acevedo [facility] Start: 10-17-2006 End: 10-17-2006 Patient encounter procedure Britta Acevedo [facility] Start: 07-27-2006 End: 07-27-2006 Patient encounter procedure Britta Acevedo [facility] Start: 07-25-2006 End: 07-25-2006 Historical Summary Britta Acevedo [facility] Procedures Date Procedure Procedure Detail Performing Clinician Start: 04-26-2022 End: 04-26-2022 Oxyhydrogen Welder Office Visit Report Procedure Note: See Note; NOTES: [facility] [address] [place] [address] OFFICE VISIT Date of Service: 04/26/22 MR#: [id number] Acct: [id number] Name: PRISCILA RICHARDSON Rep #: [id number] : 1985 Provider: Dr. Sonya valentino MD Age/Sex: 36/F Location: [facility] Status: Signed Intake Vital Signs 04/14/22 10:22 04/26/22 15:03 04/26/22 15:03 Height 5 ft 5 in 5 ft 5 in 5 ft 5 in Weight: 149 lb 8 oz BMI 24.8 BP 129/79 H Intake Visit Reasons: 2WK PP Pleating Supervisor Required: No Is patient in pain?: No Allergies amoxicillin Adverse Reaction (Mild, Verified 04/26/22 14:57) Vomiting erythromycin base Adverse Reaction (Mild, Verified 04/26/22 14:57) Vomiting azithromycin Adverse Reaction (Verified 04/26/22 14:57) Vomiting Medications albuterol sulfate 90 mcg/actuation aerosol inhaler (ProAir HFA) 1 puff inhalation Q6H PRN asthma attack 07/29/19 [History Confirmed 04/26/22] 103-folic acid 400 mcg-omeg3 32.5 mg-dha-fish oil chew tablet 2 ea PO DAILY Check with primary doctor 07/15/20 [History Confirmed 04/26/22] docusate sodium 100 mg capsule (Colace) 100 mg PO DAILY Check with primary doctor 01/26/22 [History Confirmed 04/26/22] naproxen 500 mg tablet 500 mg PO BID PRN PRN Pain #30 tabs 04/14/22 [Rx Confirmed 04/26/22] : Yes PFSH Medical History delivery delivered SVT (supraventricular tachycardia) Surgical History Delivery by section History of wisdom tooth extraction, class II edentulism Family History Father auto immune disorder psoriatic arthritis. Cancer multiple tumors with mets, no definitive primary. Possibly melanoma Heart disease AFIB Mother Diabetes Grandmother Kidney disease Aunt Heart disease Social History Smoking Status: Never smoker alcohol intake: current details: pre- substance use type: does not use caffeine: Yes what type of physical activity do you participate in: walking frequency: 3-4 times per week seatbelt use: always do you feel safe at home: Yes additional social history: Trang- Patient Nilda Marley Financial planning History 2 Elective abortions Hx Para 2 Spontaneous abortions Hx # Term Pregnancies 2 Ectopic pregnancies Hx # Pregnancies Multiple births # of living children 2 Past Pregnancies Del. Date Name GA/Weeks Outcome Route Bth Weight Gen Labor Lgth Anesthesia Del Locatn Provider FOB 07/16/20 Meron 40 live - full term Female epidural [facility] Tiffany 04/14/22 Maira 38 live - full term 8lbs 5oz Female spinal [facility] Sonya Cy Trang Delivery Date: 07/16/20 Last Updated by: Mariana English arrest of descent Delivery Date: 04/14/22 Last Updated by: Federica Alexandra [facility] 39 Post HPI 2WK PP: Details: PRISCILA RICHARDSON is a 36 year old who presents for her post visit. doing well some dysuria ROS Const Reports system reviewed and no additional complaints, except as documented GI Denies abdominal pain, Denies cramping, Denies nausea and Denies vomiting Denies pelvic pain, Denies urinary frequency, Denies urinary incontinence, Denies urinary urgency, Denies vaginal discharge, Denies vaginal dryness and Denies vaginal odor Exam Const General: cooperative, healthy appearing, comfortable and no acute distress GI Inspection: normal to inspection Palpation: soft and nontender Other: Incisions: C/D/I Coding Level of Care Code No Charge Diagnoses care and examination Z39.2 Assessment and Plan Assessment and Plan (1) care and examination: Plan fu at 6 weeks 04/26/22 1522 <Electronically signed by Sonya Benoit MD> Date Sonya Benoit MD Cosigner Signature: Date (if applicable) CC: Britta Acevedo DO Work Phone: Start: 04-08-2022 End: 04-13-2022 Oxyhydrogen Welder Office Visit Report Procedure Note: See Note; NOTES: [facility] [address] [place] [address] OFFICE VISIT Date of Service: 04/08/22 MR#: [id number] Acct: [id number] Name: PRISCILA RICHARDSON Rep #: [id number] : 1985 Provider: Dr. Sonya valentino MD Age/Sex: 36/F Location: [facility] Status: Signed Intake Vital Signs 10/29/21 15:52 04/08/22 09:41 04/08/22 09:43 Height 5 ft 5 in 5 ft 5 in 5 ft 5 in Weight: 159 lb 6 oz BMI 26.5 BP 118/72 Intake Visit Reasons: 38WK OB Allergies amoxicillin Adverse Reaction (Mild, Verified 04/08/22 09:43) Vomiting erythromycin base Adverse Reaction (Mild, Verified 04/08/22 09:43) Vomiting azithromycin Adverse Reaction (Verified 04/08/22 09:43) Vomiting Medications albuterol sulfate 90 mcg/actuation aerosol inhaler (ProAir HFA) 1 puff inhalation Q6H PRN asthma attack 07/29/19 [History Confirmed 04/08/22] 103-folic acid 400 mcg-omeg3 32.5 mg-dha-fish oil chew tablet 2 ea PO DAILY 07/15/20 [History Confirmed 04/08/22] budesonide 90 mcg/actuation breath activated powder inhaler 1 inh inhalation BID 12/24/21 [History Confirmed 04/08/22] famotidine 20 mg tablet (Pepcid) 20 mg PO BID #60 tabs 12/24/21 [Rx Confirmed 04/08/22] meclizine 12.5 mg tablet 12.5 mg PO TID PRN motion sickness #90 tabs 12/24/21 [Rx Confirmed 04/08/22] docusate sodium 100 mg capsule (Colace) 100 mg PO DAILY 01/26/22 [History Confirmed 04/08/22] Last Menstral Period: 07/14/21 Zika: Zika virus screening: Negative : No PFSH PFSH Surgical History Delivery by section History of wisdom tooth extraction, class II edentulism Family History Father auto immune disorder psoriatic arthritis. Cancer multiple tumors with mets, no definitive primary. Possibly melanoma Heart disease AFIB Mother Diabetes Grandmother Kidney disease Aunt Heart disease Social History Smoking Status: Never smoker alcohol intake: current details: pre- substance use type: does not use caffeine: Yes what type of physical activity do you participate in: walking frequency: 3-4 times per week seatbelt use: always do you feel safe at home: Yes additional social history: Trang- Senior Cost Estimator Patient Munguiaalejandra Marley 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 Date Name GA/Weeks Outcome Route Bth Weight Infant Gen Labor Lgth Anesthesia Del Locatn Provider FOB 07/16/20 Meron 40 live - full term Female epidural [facility] Tiffany Delivery Date: 07/16/20 Last Updated by: Mariana English arrest of descent HPI 38WK OB Details: PRISCILA RICHARDSON is a 36 year old who presents for routine OB visit. OB Visit ALVAREZ Calculator Estimated Delivery Date Method Current WG Current Estimate 04/20/22 LMP (Uncertain) 38w 2d Other Estimates 04/16/22 Ultrasound #1 38w 6d Expected Delivery Route/Plan RLTCS Specific Issue/Plans Covid status: vaccinated Flu vaccine: vaccinated Tdap vaccine: given Rhogam: given LARC form signed: declined movement and labor precautions reviewed. Problem list reviewed and updated with the most current plan of care details and appropriate orders placed. Relevant counseling for the gestational age provided. Continue routine care and follow up unless otherwise noted in visit notes/problem list details Initial Weight: 139 lb Date -???-???-???-???-???-???-??? -???-???-???-???-???- EGA Weight BP Urine Prot -???-???-???-???-???-???-??? -???-???-???-???-???- Glucose FHR FuHt Pres Dilation -???-???-???-???-???-???-??? -???-???-???-???-???- Effaced St Visit Note 09/16/21 -???-???-???-???-???-???-??? -???-???-???-???-???- 9w 1d 139 lb (+0 oz) 120/86 -???-???-???-???-???-???-??? -???-???-???-???-???- 170 -???-???-???-???-???-???-??? -???-???-???-???-???- SM- CRL cons with LMP SM- CRL 2.6cm cons with LMP 10/01/21 -???-???-???-???-???-???-??? -???-???-???-???-???- 11w 2d 144 lb (+5 lb) 114/80 -???-???-???-???-???-???-??? -???-???-???-???-???- 145 -???-???-???-???-???-???-??? -???-???-???-???-???- SM- no vb cr amping 10/29/21 -???-???-???-???-???-???-??? -???-???-???-???-???- 15w 2d 144 lb 6 oz (+5 lb 6 oz) 118/78 Negative -???-???-???-???-???-???-??? -???-???-???-???-???- Negative 150 -???-???-???-???-???-???-??? -???-???-???-???-???- JV- no lof, vaginal bleeding, or cramping. test pos for opiods was likely due to eating poppy seeds. Pt reassured. follow up test was neg. anatomy scan ordered. 11/26/21 -???-???-???-???-???-???-??? -???-???-???-???-???- 19w 2d 143 lb 4 oz (+4 lb 4 oz) 114/70 Negative -???-???-???-???-???-???-??? -???-???-???-???-???- Negative 150 -???-???-???-???-???-???-??? -???-???-???-???-???- SM- no vb lo f good fm still having emesis but stable. 12/24/21 -???-???-???-???-???-???-??? -???-???-???-???-???- 23w 2d 148 lb 2 oz (+9 lb 2 oz) 118/78 Negative -???-???-???-???-???-???-??? -???-???-???-???-???- Negative 145 23 -???-???-???-???-???-???-??? -???-???-???-???-???- JNidhi- pt has y east infetion today. requesting diflucan. pepcid and meclazine ordered. will be going to [place] for vacation 01/26/22 -???-???-???-???-???-???-??? -???-???-???-???-???- 28w 0d 149 lb 8 oz (+10 lb 8 oz) 126/76 Negative -???-???-???-???-???-???-??? -???-???-???-???-???- Negative 145 29 -???-???-???-???-???-???-??? -???-???-???-???-???- JV- received rhogam, tdap, and needs to re-do glucola 02/11/22 -???-???-???-???-???-???-??? -???-???-???-???-???- 30w 2d 153 lb 6 oz (+14 lb 6 oz) 112/76 Negative -???-???-???-???-???-???-??? -???-???-???-???-???- Negative 145 31 -???-???-???-???-???-???-??? -???-???-???-???-???- SM- no vb lo f good fm no regular ctx discussed reflux management 02/25/22 -???-???-???-???-???-???-??? -???-???-???-???-???- 32w 2d 158 lb (+19 lb) 124/62 Negative -???-???-???-???-???-???-??? -???-???-???-???-???- Negative 140 32 -???-???-???-???-???-???-??? -???-???-???-???-???- SM- no vb lo f good fm no regualr ctx 03/09/22 -???-???-???-???-???-???-??? -???-???-???-???-???- 34w 0d 157 lb (+18 lb) 112/60 Negative -???-???-???-???-???-???-??? -???-???-???-???-???- Negative 144 34 -???-???-???-???-???-???-??? -???-???-???-???-???- MH-No vB, LO F. Good FM. Denies concerns. 03/25/22 -???-???-???-???-???-???-??? -???-???-???-???-???- 36w 2d 157 lb 4 oz (+18 lb 4 oz) 110/74 Negative -???-???-???-???-???-???-??? -???-???-???-???-???- Negative 140 34 -???-???-???-???-???-???-??? -???-???-???-???-???- SM- no vb lo f good fm no regular ctx gbs done growth US ordered 04/01/22 -???-???-???-???-???-???-??? -???-???-???-???-???- 37w 2d 160 lb (+21 lb) 120/72 Negative -???-???-???-???-???-???-??? -???-???-???-???-???- Negative 145 37 Cephalic 1 -???-???-???-???-???-???-??? -???-???-???-???-???- SM- no vb lo f good fm no reuglar ctx 04/08/22 -???-???-???-???-???-???-??? -???-???-???-???-???- 38w 2d 159 lb 6 oz (+20 lb 6 oz) 118/72 Negative -???-???-???-???-???-???-??? -???-???-???-???-???- Negative 145 38 Cephalic 1 -???-???-???-???-???-???-??? -???-???-???-???-???- SM- no vb lo f good fm no regular ctx ACOG First Trimester First Trimester: Desire for , Alcohol, Tobacco Cessation, Illicit/Recreational Drug/Substance Use, Intimate Partner Violence, Barriers to care, Unstable Housing, Communication Barriers, Environmental/Work Hazards, Anticipated Course of Care, Toxoplasmosis Precations, Use of Any medications, Sexual activity, Exercise, Dental Care, Sauna/Hot tub use, Seat Belt use, Childbirth classes/Hospital facilities, , Travel, Indications for Ultrasound and Screening for Aneuploidy Second Trimester Second Trimester: Signs and Symptoms of Labor, Selecting a care provider, Reproductive Life Planning Contreception, Care Planning, Tobacco Cessation, Depres jenn/Anxiety and Intimate Partner Violence Third Trimester Third Trimester: Pain Management Plans, Labor support person(s), Immediate Larc, Movement Monitoring and Feeding Yes ; Discussed Trial of Labor after Counseling and Discussed Circumcision preference Diagnostics Diagnostics Diagnostics: Blood Type AB NEGATIVE Antibody Screen NEGATIVE Glucose 1 Hr 50 gm 91 mg/dL (70-140) Hgb 11.3 g/dL (12.0-15.0) L Hct 32.9 % (37-47) L Details: HIV: Urine Culture: Sequential Screen: NIPT Screen: ROS Const Reports system reviewed and no additional complaints, except as documented Card Reports system reviewed and no additional complaints, except as documented Resp Reports system reviewed and no additional complaints, except as documented GI Reports system reviewed and no additional complaints, except as documented and Reports nausea Reports system reviewed and no additional complaints, except as documented Musc Reports system reviewed and no additional complaints, except as documented Exam Const General: cooperative, healthy appearing, comfortable and anxious [facility] Head: normal to inspection Nose: external nose normal Face and sinus: normal facial exam Neck Neck: normal visual inspection, full ROM and no lymphadenopathy Thyroid: thyroid normal Chest Chest palpation inspection: normal inspection of the chest Resp Effort Inspection: normal respiratory effort GI Inspection: normal to inspection Palpation: soft and other (gravid uterus) Other: infant vertex and appropriate size for gestational age Other: Cervical Exam: Extrem General: pedal edema Results POC Urinalysis 2 Dip (Clinic) Office Urine Glucose Negative Last Edit by Eleni English on 04/08/22 09:50 Office Urine Protein Negative Last Edit by Eleni English on 04/08/22 09:50 Coding Level of Care Code OB Routine Diagnoses GBS (group B Streptococcus carrier), +RV culture, currently O99.820 Rh negative status during O26.899; Z67.91 Supervision of other normal Z34.80 Z3A.38 Weeks of gestation: 38 weeks History of supraventricular tachycardia Z86.79 History of Z98.891 Asthma J45.909 Assessment and Plan Assessment and Plan (1) GBS (group B Streptococcus carrier), +RV culture, currently : Status: Acute Comment: treat with PCN in labor (2) Rh negative status during : Status: Acute Comment: rhogam prn with bleeding, 28 wk and pp (3) Supervision of other normal : Status: Acute Comment: PRR ALVAREZ 04/20/22 girl PC: Meron. Spouse:Trang (4) : Status: Acute Qualifiers: Weeks of gestation: 38 weeks Qualified Code(s): Z3A.38 - 38 weeks gestation of Comment: declines carrier and genetic screen. Anatomy US normal. 03/29/22 nl growth US. (5) History of supraventricular tachycardia: Status: Acute Comment: not problematic (6) History of : Status: Acute Comment: CPD, pushed for 4 hours. plan RLTCS. RLTCS scheduled for 04/14 @ 12 with (7) Asthma: Status: Acute Comment: singular, ProAir stable controlled by PCP Orders: Orders POC Urinalysis 2 Dip (Clinic) Today Dr. Kate Small DO COVID 19, PCR WC(RT COLLECT) Today Z34.90 - Encounter for supervision of normal , unspecified, unspecified trimester Dr. Sonya Benoit MD 04/13/22 1812 <Electronically signed by Kate Small DO> Date Kate Small DO 04/08/22 1032<Electronically signed by Sonya Benoit MD> Cosigner Signature: Date (if applicable) Sonya Benoit MD CC: Britta Acevedo Work Phone: Start: 04-01-2022 End: 04-01-2022 [employer] Office Visit Report Procedure Note: See Note; NOTES: [facility] [address] [place] [address] OFFICE VISIT Date of Service: 04/01/22 MR#: [id number] Acct: [id number] Name: PRISCILA RICHARDSON Rep #: [id number] : 1985 Provider: Dr. Sonya valentino MD Age/Sex: 36/F Location: [facility] [place] Status: Signed Intake Vital Signs 10/29/21 15:52 04/01/22 15:51 04/01/22 15:52 Height 5 ft 5 in 5 ft 5 in 5 ft 5 in Weight: 160 lb BMI 26.6 BP 120/72 Intake Visit Reasons: 37WK OB Chief Complaint: est ob Pleating Supervisor Required: No Is patient in pain?: No Allergies amoxicillin Adverse Reaction (Mild, Verified 03/25/22 14:49) Vomiting erythromycin base Adverse Reaction (Mild, Verified 03/25/22 14:49) Vomiting azithromycin Adverse Reaction (Verified 03/25/22 14:49) Vomiting Medications albuterol sulfate 90 mcg/actuation aerosol inhaler (ProAir HFA) 1 puff inhalation Q6H PRN asthma attack 07/29/19 [History Confirmed 04/01/22] 103-folic acid 400 mcg-omeg3 32.5 mg-dha-fish oil chew tablet 2 ea PO DAILY 07/15/20 [History Confirmed 04/01/22] budesonide 90 mcg/actuation breath activated powder inhaler 1 inh inhalation BID 12/24/21 [History Confirmed 04/01/22] famotidine 20 mg tablet (Pepcid) 20 mg PO BID #60 tabs 12/24/21 [Rx Confirmed 04/01/22] meclizine 12.5 mg tablet 12.5 mg PO TID PRN motion sickness #90 tabs 12/24/21 [Rx Confirmed 04/01/22] docusate sodium 100 mg capsule (Colace) 100 mg PO DAILY 01/26/22 [History Confirmed 04/01/22] Last Menstral Period: 07/14/21 Zika: Zika virus screening: Negative : No PFSH PFSH Surgical History Delivery by section History of wisdom tooth extraction, class II edentulism Family History Father auto immune disorder psoriatic arthritis. Cancer multiple tumors with mets, no definitive primary. Possibly melanoma Heart disease AFIB Mother Diabetes Grandmother Kidney disease Aunt Heart disease Social History Smoking Status: Never smoker alcohol intake: current details: pre- substance use type: does not use caffeine: Yes what type of physical activity do you participate in: walking frequency: 3-4 times per week seatbelt use: always do you feel safe at home: Yes additional social history: Trang- Patient [employer]ilda Marley 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 Date Name GA/Weeks Outcome Route Bth Weight Gen Labor Lgth Anesthesia Del Locatn Provider FOB 07/16/20 Meron 40 live - full term Female epidural [facility] Tiffany Delivery Date: 07/16/20 Last Updated by: Mariana English arrest of descent HPI 37WK OB Details: PRISCILA RICHARDSON is a 36 year old who presents for routine OB visit. OB Visit ALVAREZ Calculator Estimated Delivery Date Method Current WG Current Estimate 04/20/22 LMP (Uncertain) 37w 2d Other Estimates 04/16/22 Ultrasound #1 37w 6d Expected Delivery Route/Plan RLTCS Specific Issue/Plans Covid status: vaccinated Flu vaccine: vaccinated Tdap vaccine: given Rhogam: given LARC form signed: declined movement and labor precautions reviewed. Problem list reviewed and updated with the most current plan of care details and appropriate orders placed. Relevant counseling for the gestational age provided. Continue routine care and follow up unless otherwise noted in visit notes/problem list details Initial Weight: 139 lb Date -???-???-???-???-???-???-??? -???-???-???-???-???- EGA Weight BP Urine Prot -???-???-???-???-???-???-??? -???-???-???-???-???- Glucose FHR FuHt Pres Dilation -???-???-???-???-???-???-??? -???-???-???-???-???- Effaced St Visit Note 09/16/21 -???-???-???-???-???-???-??? -???-???-???-???-???- 9w 1d 139 lb (+0 oz) 120/86 -???-???-???-???-???-???-??? -???-???-???-???-???- 170 -???-???-???-???-???-???-??? -???-???-???-???-???- SM- CRL cons with LMP SM- CRL 2.6cm cons with LMP 10/01/21 -???-???-???-???-???-???-??? -???-???-???-???-???- 11w 2d 144 lb (+5 lb) 114/80 -???-???-???-???-???-???-??? -???-???-???-???-???- 145 -???-???-???-???-???-???-??? -???-???-???-???-???- SM- no vb cr amping 10/29/21 -???-???-???-???-???-???-??? -???-???-???-???-???- 15w 2d 144 lb 6 oz (+5 lb 6 oz) 118/78 Negative -???-???-???-???-???-???-??? -???-???-???-???-???- Negative 150 -???-???-???-???-???-???-??? -???-???-???-???-???- JV- no lof, vaginal bleeding, or cramping. test pos for opiods was likely due to eating poppy seeds. Pt reassured. follow up test was neg. anatomy scan ordered. 11/26/21 -???-???-???-???-???-???-??? -???-???-???-???-???- 19w 2d 143 lb 4 oz (+4 lb 4 oz) 114/70 Negative -???-???-???-???-???-???-??? -???-???-???-???-???- Negative 150 -???-???-???-???-???-???-??? -???-???-???-???-???- SM- no vb lo f good fm still having emesis but stable. 12/24/21 -???-???-???-???-???-???-??? -???-???-???-???-???- 23w 2d 148 lb 2 oz (+9 lb 2 oz) 118/78 Negative -???-???-???-???-???-???-??? -???-???-???-???-???- Negative 145 23 -???-???-???-???-???-???-??? -???-???-???-???-???- JV- pt has y east infetion today. requesting diflucan. pepcid and meclazine ordered. will be going to [place] for vacation 01/26/22 -???-???-???-???-???-???-??? -???-???-???-???-???- 28w 0d 149 lb 8 oz (+10 lb 8 oz) 126/76 Negative -???-???-???-???-???-???-??? -???-???-???-???-???- Negative 145 29 -???-???-???-???-???-???-??? -???-???-???-???-???- JV- received rhogam, tdap, and needs to re-do glucola 02/11/22 -???-???-???-???-???-???-??? -???-???-???-???-???- 30w 2d 153 lb 6 oz (+14 lb 6 oz) 112/76 Negative -???-???-???-???-???-???-??? -???-???-???-???-???- Negative 145 31 -???-???-???-???-???-???-??? -???-???-???-???-???- SM- no vb lo f good fm no regular ctx discussed reflux management 02/25/22 -???-???-???-???-???-???-??? -???-???-???-???-???- 32w 2d 158 lb (+19 lb) 124/62 Negative -???-???-???-???-???-???-??? -???-???-???-???-???- Negative 140 32 -???-???-???-???-???-???-??? -???-???-???-???-???- SM- no vb lo f good fm no regualr ctx 03/09/22 -???-???-???-???-???-???-??? -???-???-???-???-???- 34w 0d 157 lb (+18 lb) 112/60 Negative -???-???-???-???-???-???-??? -???-???-???-???-???- Negative 144 34 -???-???-???-???-???-???-??? -???-???-???-???-???- -No vB, LO F. Good FM. Denies concerns. 03/25/22 -???-???-???-???-???-???-??? -???-???-???-???-???- 36w 2d 157 lb 4 oz (+18 lb 4 oz) 110/74 Negative -???-???-???-???-???-???-??? -???-???-???-???-???- Negative 140 34 -???-???-???-???-???-???-??? -???-???-???-???-???- SM- no vb lo f good fm no regular ctx gbs done growth US ordered 04/01/22 -???-???-???-???-???-???-??? -???-???-???-???-???- 37w 2d 160 lb (+21 lb) 120/72 Negative -???-???-???-???-???-???-??? -???-???-???-???-???- Negative 145 37 Cephalic 1 -???-???-???-???-???-???-??? -???-???-???-???-???- SM- no vb lo f good fm no reuglar ctx ACOG First Trimester First Trimester: Desire for , Alcohol, Tobacco Cessation, Illicit/Recreational Drug/Substance Use, Intimate Partner Violence, Barriers to care, Unstable Housing, Communication Barriers, Environmental/Work Hazards, Anticipated Course of Care, Toxoplasmosis Precations, Use of Any medications, Sexual activity, Exercise, Dental Care, Sauna/Hot tub use, Seat Belt use, Childbirth classes/Hospital facilities, , Travel, Indications for Ultrasound and Screening for Aneuploidy Diagnostics Diagnostics Diagnostics: Blood Type AB NEGATIVE Antibody Screen NEGATIVE Glucose 1 Hr 50 gm 91 mg/dL (70-140) Hgb 11.3 g/dL (12.0-15.0) L Hct 32.9 % (37-47) L Details: HIV: Urine Culture: Sequential Screen: NIPT Screen: Results POC Urinalysis 2 Dip (Clinic) Office Urine Glucose Negative Last Edit by Julia Schaffer on 04/01/22 15:56 Office Urine Protein Negative Last Edit by Julia Schaffer on 04/01/22 15:56 Coding Level of Care Code OB Routine Diagnoses GBS (group B Streptococcus carrier), +RV culture, currently O99.820 Rh negative status during O26.899; Z67.91 Supervision of other normal Z34.80 Z3A.37 Weeks of gestation: 37 weeks History of supraventricular tachycardia Z86.79 History of Z98.891 Asthma J45.909 Assessment and Plan Assessment and Plan (1) GBS (group B Streptococcus carrier), +RV culture, currently : Status: Acute Comment: treat with PCN in labor (2) Rh negative status during : Status: Acute Comment: rhogam prn with bleeding, 28 wk and pp (3) Supervision of other normal : Status: Acute Comment: PRR ALVAREZ 04/20/22 girl PC: Meron. Spouse:Trang (4) : Status: Acute Qualifiers: Weeks of gestation: 37 weeks Qualified Code(s): Z3A.37 - 37 weeks gestation of Comment: declines carrier and genetic screen. Anatomy US normal. 03/29/22 nl growth US. (5) History of supraventricular tachycardia: Status: Acute Comment: not problematic (6) History of : Status: Acute Comment: CPD, pushed for 4 hours. plan RLTCS. RLTCS scheduled for 04/14 @ 12 with (7) Asthma: Status: Acute Comment: singular, ProAir stable controlled by PCP Orders: Orders POC Urinalysis 2 Dip (Clinic) Today 04/01/22 1612 <Electronically signed by Sonya Benoit MD> Date Sonya Benoit MD Cosigner Signature: Date (if applicable) CC: Britta Acevedo DO Work Phone: Start: 03-29-2022 End: 03-29-2022 OB Limited With Biometrics Procedure Note: See Note; NOTES: [facility] [address] [place] [address] OB Limited With Biometrics MR#: [id number] Acct: [id number] Name: PRISCILA RICHARDSON Rep #: [id number] : 1985 F 36 From: Arvind Alvarado PCP: Dr. Britta Acevedo, Status: REG CLI Study: OB Limited With Biometrics Date of Exam: 03/29 Exam# [id number] Ordering Dr: Sonya Benoit STUDY: SECOND AND THIRD TRIMESTER OBSTETRICAL ULTRASOUND - LIMITED REASON FOR EXAM: Female, 36 years old. growth PRIOR ULTRASOUND: Sep 10 2021 6:21pm TECHNIQUE: Transabdominal TECHNICAL QUALITY: Adequate. FINDINGS: There is a single intrauterine fetus. The fetus is in a cephalic presentation. There is demonstrated cardiac activity with a heart rate of 144 bpm. There is a normal amniotic fluid volume. The largest amniotic fluid pocket measures 5.1 cm. The amniotic fluid index (RUSSELL) is 11.1 cm. The placenta is fundal in location. There are Grade 3 placental changes. The cervix is obscured by overlying bowel gas and cannot be identified. . BIOMETRY: BPD: 87 mm: 35 weeks, 2 days HC: 324 mm: 36 weeks, 4 days AC: 336 mm: 37 weeks, 4 days FL: 70 mm: 36 weeks, 0 days CI: 77 FL/AC: 21 FL/BPD: 81 HC/AC: 0.96 age by current US: 36 weeks, 5 days. ALVAREZ by current US: 9.04.04. Estimated weight: 3048 grams, +/- 457 grams, 55 %. Age by LMP: 36 weeks, 6 days. ALVAREZ by LMP: 9.03.04. US/OB Limited With Biometrics IMPRESSION: There is a single live intrauterine with a heart rate of 144 bpm. age by current US: 36 weeks, 5 days. ALVAREZ by current US: 9.8.22. Estimated weight: 3048 grams, +/- 457 grams, 55 %. Electronically Signed: Arvind Prasad MD at 15:36 EDT , CC: Dr. Britta Acevedo DO; Dr. Sonya Benoit MD Plater Apprentice: Signed Britta Acevedo DO Work Phone: Start: 03-25-2022 End: 03-25-2022 Oxy[employer] Welder Office Visit Report Procedure Note: See Note; NOTES: [facility] [address] [place] [address] OFFICE VISIT Date of Service: 03/25/22 MR#: [id number] Acct: [id number] Name: PRISCILA RICHARDSON Rep #: [id number] : 1985 Provider: Dr. Sonya valentino MD Age/Sex: 36/F Location: [facility] [place] Status: Signed Intake Vital Signs 10/29/21 15:52 03/25/22 14:50 Height 5 ft 5 in 5 ft Intake Visit Reasons: 36WK OB Pleating Supervisor Required: No Is patient in pain?: No Allergies amoxicillin Adverse Reaction (Mild, Verified 03/25/22 14:49) Vomiting erythromycin base Adverse Reaction (Mild, Verified 03/25/22 14:49) Vomiting azithromycin Adverse Reaction (Verified 03/25/22 14:49) Vomiting Medications albuterol sulfate 90 mcg/actuation aerosol inhaler (ProAir HFA) 1 puff inhalation Q6H PRN asthma attack 07/29/19 [History Confirmed 03/25/22] 103-folic acid 400 mcg-omeg3 32.5 mg-dha-fish oil chew tablet 2 ea PO DAILY 07/15/20 [History Confirmed 03/25/22] budesonide 90 mcg/actuation breath activated powder inhaler 1 inh inhalation BID 12/24/21 [History Confirmed 03/25/22] famotidine 20 mg tablet (Pepcid) 20 mg PO BID #60 tabs 12/24/21 [Rx Confirmed 03/25/22] meclizine 12.5 mg tablet 12.5 mg PO TID PRN motion sickness #90 tabs 12/24/21 [Rx Confirmed 03/25/22] docusate sodium 100 mg capsule (Colace) 100 mg PO DAILY 01/26/22 [History Confirmed 03/25/22] Last Menstral Period: 07/14/21 : No PFSH PFSH Surgical History Delivery by section History of wisdom tooth extraction, class II edentulism Family History Father auto immune disorder psoriatic arthritis. Cancer multiple tumors with mets, no definitive primary. 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 Date Name GA/Weeks Outcome Route Bth Weight Gen Labor Lgth Anesthesia Del Locatn Provider FOB 07/16/20 Meron 40 live - full term Female epidural [facility] Tiffany Delivery Date: 07/16/20 Last Updated by: Mariana English arrest of descent HPI 36WK OB Details: PRISCILA RICHARDSON is a 36 year old who presents for routine OB visit. OB Visit ALVAREZ Calculator Estimated Delivery Date Method Current WG Current Estimate 04/20/22 LMP (Uncertain) 36w 2d Other Estimates 04/16/22 Ultrasound #1 36w 6d Expected Delivery Route/Plan RLTCS Specific Issue/Plans Covid status: vaccinated Flu vaccine: vaccinated Tdap vaccine: given Rhogam: given LARC form signed: declined movement and labor precautions reviewed. Problem list reviewed and updated with the most current plan of care details and appropriate orders placed. Relevant counseling for the gestational age provided. Continue routine care and follow up unless otherwise noted in visit notes/problem list details Initial Weight: 139 lb Date -???-???-???-???-???-???-??? -???-???-???-???-???- EGA Weight BP Urine Prot -???-???-???-???-???-???-??? -???-???-???-???-???- Glucose FHR FuHt Pres Dilation -???-???-???-???-???-???-??? -???-???-???-???-???- Effaced St Visit Note 09/16/21 -???-???-???-???-???-???-??? -???-???-???-???-???- 9w 1d 139 lb (+0 oz) 120/86 -???-???-???-???-???-???-??? -???-???-???-???-???- 170 -???-???-???-???-???-???-??? -???-???-???-???-???- SM- CRL cons with LMP SM- CRL 2.6cm cons with LMP 10/01/21 -???-???-???-???-???-???-??? -???-???-???-???-???- 11w 2d 144 lb (+5 lb) 114/80 -???-???-???-???-???-???-??? -???-???-???-???-???- 145 -???-???-???-???-???-???-??? -???-???-???-???-???- SM- no vb cr amping 10/29/21 -???-???-???-???-???-???-??? -???-???-???-???-???- 15w 2d 144 lb 6 oz (+5 lb 6 oz) 118/78 Negative -???-???-???-???-???-???-??? -???-???-???-???-???- Negative 150 -???-???-???-???-???-???-??? -???-???-???-???-???- JV- no lof, vaginal bleeding, or cramping. test pos for opiods was likely due to eating poppy seeds. Pt reassured. follow up test was neg. anatomy scan ordered. 11/26/21 -???-???-???-???-???-???-??? -???-???-???-???-???- 19w 2d 143 lb 4 oz (+4 lb 4 oz) 114/70 Negative -???-???-???-???-???-???-??? -???-???-???-???-???- Negative 150 -???-???-???-???-???-???-??? -???-???-???-???-???- SM- no vb lo f good fm still having emesis but stable. 12/24/21 -???-???-???-???-???-???-??? -???-???-???-???-???- 23w 2d 148 lb 2 oz (+9 lb 2 oz) 118/78 Negative -???-???-???-???-???-???-??? -???-???-???-???-???- Negative 145 23 -???-???-???-???-???-???-??? -???-???-???-???-???- JV- pt has y east infetion today. requesting diflucan. pepcid and meclazine ordered. will be going to [place] for vacation 01/26/22 -???-???-???-???-???-???-??? -???-???-???-???-???- 28w 0d 149 lb 8 oz (+10 lb 8 oz) 126/76 Negative -???-???-???-???-???-???-??? -???-???-???-???-???- Negative 145 29 -???-???-???-???-???-???-??? -???-???-???-???-???- JV- received rhogam, tdap, and needs to re-do glucola 02/11/22 -???-???-???-???-???-???-??? -???-???-???-???-???- 30w 2d 153 lb 6 oz (+14 lb 6 oz) 112/76 Negative -???-???-???-???-???-???-??? -???-???-???-???-???- Negative 145 31 -???-???-???-???-???-???-??? -???-???-???-???-???- SM- no vb lo f good fm no regular ctx discussed reflux management 02/25/22 -???-???-???-???-???-???-??? -???-???-???-???-???- 32w 2d 158 lb (+19 lb) 124/62 Negative -???-???-???-???-???-???-??? -???-???-???-???-???- Negative 140 32 -???-???-???-???-???-???-??? -???-???-???-???-???- SM- no vb lo f good fm no regualr ctx 03/09/22 -???-???-???-???-???-???-??? -???-???-???-???-???- 34w 0d 157 lb (+18 lb) 112/60 Negative -???-???-???-???-???-???-??? -???-???-???-???-???- Negative 144 34 -???-???-???-???-???-???-??? -???-???-???-???-???- -No vB, LO F. Good FM. Denies concerns. 03/25/22 -???-???-???-???-???-???-??? -???-???-???-???-???- 36w 2d 157 lb 4 oz (+18 lb 4 oz) 110/74 Negative -???-???-???-???-???-???-??? -???-???-???-???-???- Negative 140 34 -???-???-???-???-???-???-??? -???-???-???-???-???- SM- no vb lo f good fm no regular ctx gbs done growth US ordered ACOG First Trimester First Trimester: Desire for , Alcohol, Tobacco Cessation, Illicit/Recreational Drug/Substance Use, Intimate Partner Violence, Barriers to care, Unstable Housing, Communication Barriers, Environmental/Work Hazards, Anticipated Course of Care, Toxoplasmosis Precations, Use of Any medications, Sexual activity, Exercise, Dental Care, Sauna/Hot tub use, Seat Belt use, Childbirth classes/Hospital facilities, , Travel, Indications for Ultrasound and Screening for Aneuploidy Diagnostics Diagnostics Diagnostics: Blood Type AB NEGATIVE Antibody Screen NEGATIVE Glucose 1 Hr 50 gm 91 mg/dL (70-140) HIV 1 2 Antibody Non-Reactive (Nonreactive) Rubella IgG Antibody Reactive (Nonreactive) Hgb 11.3 g/dL (12.0-15.0) L Hct 32.9 % (37-47) L Chlamydia DNA (SOFIA) Negative (Negative) N.gonorrhoeae DNA (SOFIA) Negative (Negative) Details: HIV: Urine Culture: Sequential Screen: NIPT Screen: Results POC Urinalysis 2 Dip (Clinic) Office Urine Glucose Negative Last Edit by Lily Davis on 03/25/22 14:52 Office Urine Protein Negative Last Edit by Lily Davis on 03/25/22 14:52 Coding Level of Care Code OB Routine Diagnoses Rh negative status during O26.899; Z67.91 Supervision of other normal Z34.80 Z3A.36 Weeks of gestation: 36 weeks History of supraventricular tachycardia Z86.79 Asthma J45.909 History of Z98.891 Assessment and Plan Assessment and Plan (1) Rh negative status during : Status: Acute Comment: rhogam prn with bleeding, 28 wk and pp (2) Supervision of other normal : Status: Acute Comment: PRR ALVAREZ 04/20/22 girl PC: Meron. Spouse:Trang (3) : Status: Acute Qualifiers: Weeks of gestation: 36 weeks Qualified Code(s): Z3A.36 - 36 weeks gestation of Comment: declines carrier and genetic screen. Anatomy US normal (4) History of supraventricular tachycardia: Status: Acute Comment: not problematic (5) Asthma: Status: Acute Comment: singular, ProAir stable controlled by PCP (6) History of : Status: Acute Comment: CPD, pushed for 4 hours. plan RLTCS. RLTCS scheduled for 04/14 @ 12 with Orders: Orders POC Urinalysis 2 Dip (Clinic) Today 03/25/22 7286 <Electronically signed by Sonya Benoit MD> Date Sonya Benoit MD [facility] Signature: Date (if applicable) CC: Britta Acevedo DO Work Phone: Start: 03-09-2022 End: 03-12-2022 Oxyhydrogen Welder Office Visit Report Procedure Note: See Note; NOTES: [facility] [address] [place] [address]. [address] [place], [place] [id number] OFFICE VISIT Date of Service: 03/09/22 MR#: [id number] Acct: [id number] Name: PRISCILA RICHARDSON Rep #: [id number] : 1985 Provider: RASTA avendaño Age/Sex: 36/F Location: [facility] Status: Signed Intake Vital Signs 10/29/21 15:52 03/09/22 15:49 03/09/22 15:50 Height 5 ft 5 in 5 ft 5 in 5 ft Weight: 157 lb BMI 26.1 BP 112/60 Intake Visit Reasons: 34WK OB Chief Complaint: est ob Pleating Supervisor Required: No Is patient in pain?: No Allergies amoxicillin Adverse Reaction (Mild, Verified 02/11/22 16:04) Vomiting erythromycin base Adverse Reaction (Mild, Verified 02/11/22 16:04) Vomiting azithromycin Adverse Reaction (Verified 02/11/22 16:04) Vomiting Medications albuterol sulfate 90 mcg/actuation aerosol inhaler (ProAir HFA) 1 puff inhalation Q6H PRN asthma attack 07/29/19 [History Confirmed 03/09/22] 103-folic acid 400 mcg-omeg3 32.5 mg-dha-fish oil chew tablet 2 ea PO DAILY 07/15/20 [History Confirmed 03/09/22] budesonide 90 mcg/actuation breath activated powder inhaler 1 inh inhalation BID 12/24/21 [History Confirmed 03/09/22] famotidine 20 mg tablet (Pepcid) 20 mg PO BID #60 tabs 12/24/21 [Rx Confirmed 03/09/22] meclizine 12.5 mg tablet 12.5 mg PO TID PRN motion sickness #90 tabs 12/24/21 [Rx Confirmed 03/09/22] docusate sodium 100 mg capsule (Colace) 100 mg PO DAILY 01/26/22 [History Confirmed 03/09/22] Last Menstral Period: 07/14/21 Zika: Zika virus screening: Negative : No PFSH PFSH Surgical History Delivery by section History of wisdom tooth extraction, class II edentulism Family History Father auto immune disorder psoriatic arthritis. Cancer multiple tumors with mets, no definitive primary. 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 Date Name GA/Weeks Outcome Route Bth Weight Infant Gen Labor Lgth Anesthesia Del Locatn Provider FOB 07/16/20 Meron 40 live - full term Female epidural [facility] Delivery Date: 07/16/20 Last Updated by: Mariana English arrest of descent HPI 34WK OB Details: PRISCILA RICHARDSON is a 36 year old who presents for routine OB visit. OB Visit ALVAREZ Calculator Estimated Delivery Date Method Current WG Current Estimate 04/20/22 LMP (Uncertain) 34w 0d Other Estimates 04/16/22 Ultrasound #1 34w 4d Expected Delivery Route/Plan RLTCS Specific Issue/Plans Covid status: vaccinated Flu vaccine: vaccinated Tdap vaccine: given Rhogam: given LARC form signed: declined movement and labor precautions reviewed. Problem list reviewed and updated with the most current plan of care details and appropriate orders placed. Relevant counseling for the gestational age provided. Continue routine care and follow up unless otherwise noted in visit notes/problem list details Initial Weight: 139 lb Date -???-???-???-???-???-???-??? -???-???-???-???-???- EGA Weight BP Urine Prot -???-???-???-???-???-???-??? -???-???-???-???-???- Glucose FHR FuHt Pres Dilation -???-???-???-???-???-???-??? -???-???-???-???-???- Effaced St Visit Note 09/16/21 -???-???-???-???-???-???-??? -???-???-???-???-???- 9w 1d 139 lb (+0 oz) 120/86 -???-???-???-???-???-???-??? -???-???-???-???-???- 170 -???-???-???-???-???-???-??? -???-???-???-???-???- SM- CRL cons with LMP SM- CRL 2.6cm cons with LMP 10/01/21 -???-???-???-???-???-???-??? -???-???-???-???-???- 11w 2d 144 lb (+5 lb) 114/80 -???-???-???-???-???-???-??? -???-???-???-???-???- 145 -???-???-???-???-???-???-??? -???-???-???-???-???- SM- no vb cr amping 10/29/21 -???-???-???-???-???-???-??? -???-???-???-???-???- 15w 2d 144 lb 6 oz (+5 lb 6 oz) 118/78 Negative -???-???-???-???-???-???-??? -???-???-???-???-???- Negative 150 -???-???-???-???-???-???-??? -???-???-???-???-???- JV- no lof, vaginal bleeding, or cramping. test pos for opiods was likely due to eating poppy seeds. Pt reassured. follow up test was neg. anatomy scan ordered. 11/26/21 -???-???-???-???-???-???-??? -???-???-???-???-???- 19w 2d 143 lb 4 oz (+4 lb 4 oz) 114/70 Negative -???-???-???-???-???-???-??? -???-???-???-???-???- Negative 150 -???-???-???-???-???-???-??? -???-???-???-???-???- SM- no vb lo f good fm still having emesis but stable. 12/24/21 -???-???-???-???-???-???-??? -???-???-???-???-???- 23w 2d 148 lb 2 oz (+9 lb 2 oz) 118/78 Negative -???-???-???-???-???-???-??? -???-???-???-???-???- Negative 145 23 -???-???-???-???-???-???-??? -???-???-???-???-???- JV- pt has y east infetion today. requesting diflucan. pepcid and meclazine ordered. will be going to [place] for vacation 01/26/22 -???-???-???-???-???-???-??? -???-???-???-???-???- 28w 0d 149 lb 8 oz (+10 lb 8 oz) 126/76 Negative -???-???-???-???-???-???-??? -???-???-???-???-???- Negative 145 29 -???-???-???-???-???-???-??? -???-???-???-???-???- JV- received rhogam, tdap, and needs to re-do glucola 02/11/22 -???-???-???-???-???-???-??? -???-???-???-???-???- 30w 2d 153 lb 6 oz (+14 lb 6 oz) 112/76 Negative -???-???-???-???-???-???-??? -???-???-???-???-???- Negative 145 31 -???-???-???-???-???-???-??? -???-???-???-???-???- SM- no vb lo f good fm no regular ctx discussed reflux management 02/25/22 -???-???-???-???-???-???-??? -???-???-???-???-???- 32w 2d 158 lb (+19 lb) 124/62 Negative -???-???-???-???-???-???-??? -???-???-???-???-???- Negative 140 32 -???-???-???-???-???-???-??? -???-???-???-???-???- SM- no vb lo f good fm no regualr ctx 03/09/22 -???-???-???-???-???-???-??? -???-???-???-???-???- 34w 0d 157 lb (+18 lb) 112/60 Negative -???-???-???-???-???-???-??? -???-???-???-???-???- Negative 144 34 -???-???-???-???-???-???-??? -???-???-???-???-???- -No vB, RONALDO JEAN BAPTISTE. Denies concerns. ACOG First Trimester First Trimester: Desire for , Alcohol, Tobacco Cessation, Illicit/Recreational Drug/Substance Use, Intimate Partner Violence, Barriers to care, Unstable Housing, Communication Barriers, Environmental/Work Hazards, Anticipated Course of Care, Toxoplasmosis Precations, Use of Any medications, Sexual activity, Exercise, Dental Care, Sauna/Hot tub use, Seat Belt use, Childbirth classes/Hospital facilities, , Travel, Indications for Ultrasound and Screening for Aneuploidy Diagnostics Diagnostics Diagnostics: Blood Type AB NEGATIVE Antibody Screen NEGATIVE Glucose 1 Hr 50 gm 91 mg/dL (70-140) HIV 1 2 Antibody Non-Reactive (Nonreactive) Rubella IgG Antibody Reactive (Nonreactive) Hgb 11.3 g/dL (12.0-15.0) L Hct 32.9 % (37-47) L Chlamydia DNA (SOFIA) Negative (Negative) N.gonorrhoeae DNA (SOFIA) Negative (Negative) Details: HIV: Urine Culture: Sequential Screen: NIPT Screen: Results POC Urinalysis 2 Dip (Clinic) Office Urine Glucose Negative Last Edit by Julia Schaffer on 03/09/22 16:05 Office Urine Protein Negative Last Edit by Julia Schaffer on 03/09/22 16:05 Coding Level of Care Code OB Routine Diagnoses Supervision of other normal Z34.80 Rh negative status during O26.899; Z67.91 Z3A.34 Weeks of gestation: 34 weeks History of supraventricular tachycardia Z86.79 History of Z98.891 Asthma J45.909 Assessment and Plan Assessment and Plan (1) Supervision of other normal : Status: Acute Comment: PRR ALVAREZ 04/20/22 girl PC: Meron. Spouse:Trang (2) Rh negative status during : Status: Acute Comment: rhogam prn with bleeding, 28 wk and pp (3) : Status: Acute Qualifiers: Weeks of gestation: 34 weeks Qualified Code(s): Z3A.34 - 34 weeks gestation of Comment: declines carrier and genetic screen. Anatomy US normal (4) History of supraventricular tachycardia: Status: Acute Comment: not problematic (5) History of : Status: Acute Comment: CPD, pushed for 4 hours. plan RLTCS. RLTCS scheduled for 04/14 @ 12 with SM (6) Asthma: Status: Acute Comment: singular, ProAir stable controlled by PCP Orders: Orders POC Urinalysis 2 Dip (Clinic) Today Plan problem list reviewed and updated for most current plan of care and appropriate orders placed. Relevant counseling for the gestational age appropriate provided and ACOG education checklist updated. Continue routine care and follow up. 03/12/22 1652 <Electronically signed by Kate Small DO> Date Kate Small DO 03/09/22 1616<Electronically signed by Ana Cristina Roe NP [employer] SERVICE STATION ATTENDANT-C> Cosigner Signature: Date (if applicable) Ana Cristina Roe NP AUTO SERVICE STATION ATTENDANT-C CC: Britta Acevedo DO Work Phone: Start: 02-25-2022 End: 02-25-2022 [employer] Office Visit Report Procedure Note: See Note; NOTES: [facility] [address] [place] [address] OFFICE VISIT Date of Service: 02/25/22 MR#: [id number] Acct: [id number] Name: PRISCILA RICHARDSON Rep #: [id number] : 1985 Provider: Dr. Sonya valentino MD Age/Sex: 36/F Location: [facility] [place] Status: Signed Intake Vital Signs 10/29/21 15:52 02/25/22 15:41 02/25/22 15:41 Height 5 ft 5 in 5 ft 5 ft Weight: 158 lb BMI 30.8 BP 124/62 H Intake Visit Reasons: 32WK OB Chief Complaint: est ob Pleating Supervisor Required: No Is patient in pain?: No Allergies amoxicillin Adverse Reaction (Mild, Verified 02/11/22 16:04) Vomiting erythromycin base Adverse Reaction (Mild, Verified 02/11/22 16:04) Vomiting azithromycin Adverse Reaction (Verified 02/11/22 16:04) Vomiting Medications albuterol sulfate 90 mcg/actuation aerosol inhaler (ProAir HFA) 1 puff inhalation Q6H PRN asthma attack 07/29/19 [History Confirmed 02/25/22] 103-folic acid 400 mcg-omeg3 32.5 mg-dha-fish oil chew tablet 2 ea PO DAILY 07/15/20 [History Confirmed 02/25/22] budesonide 90 mcg/actuation breath activated powder inhaler 1 inh inhalation BID 12/24/21 [History Confirmed 02/25/22] famotidine 20 mg tablet (Pepcid) 20 mg PO BID #60 tabs 12/24/21 [Rx Confirmed 02/25/22] meclizine 12.5 mg tablet 12.5 mg PO TID PRN motion sickness #90 tabs 12/24/21 [Rx Confirmed 02/25/22] docusate sodium 100 mg capsule (Colace) 100 mg PO DAILY 01/26/22 [History Confirmed 02/25/22] Last Menstral Period: 07/14/21 Zika: Zika virus screening: Negative : No PFSH PFSH Surgical History Delivery by section History of wisdom tooth extraction, class II edentulism Family History Father auto immune disorder psoriatic arthritis. Cancer multiple tumors with mets, no definitive primary. 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 Date Name GA/Weeks Outcome Route Bth Weight Gen Labor Lgth Anesthesia Del Locatn Provider FOB 07/16/20 Meron 40 live - full term Female epidural [facility] Tiffany Delivery Date: 07/16/20 Last Updated by: Mariana English arrest of descent HPI 32WK OB Details: PRISCILA RICHARDSON is a 36 year old who presents for routine OB visit. OB Visit ALVAREZ Calculator Estimated Delivery Date Method Current WG Current Estimate 04/20/22 LMP (Uncertain) 32w 2d Other Estimates 04/16/22 Ultrasound #1 32w 6d Expected Delivery Route/Plan RLTCS Specific Issue/Plans Covid status: vaccinated Flu vaccine: vaccinated Tdap vaccine: given Rhogam: given LARC form signed: declined movement and labor precautions reviewed. Problem list reviewed and updated with the most current plan of care details and appropriate orders placed. Relevant counseling for the gestational age provided. Continue routine care and follow up unless otherwise noted in visit notes/problem list details Initial Weight: 139 lb Date -???-???-???-???-???-???-??? -???-???-???-???-???- EGA Weight BP Urine Prot -???-???-???-???-???-???-??? -???-???-???-???-???- Glucose FHR FuHt Pres Dilation -???-???-???-???-???-???-??? -???-???-???-???-???- Effaced St Visit Note 09/16/21 -???-???-???-???-???-???-??? -???-???-???-???-???- 9w 1d 139 lb (+0 oz) 120/86 -???-???-???-???-???-???-??? -???-???-???-???-???- 170 -???-???-???-???-???-???-??? -???-???-???-???-???- SM- CRL cons with LMP SM- CRL 2.6cm cons with LMP 10/01/21 -???-???-???-???-???-???-??? -???-???-???-???-???- 11w 2d 144 lb (+5 lb) 114/80 -???-???-???-???-???-???-??? -???-???-???-???-???- 145 -???-???-???-???-???-???-??? -???-???-???-???-???- SM- no vb cr amping 10/29/21 -???-???-???-???-???-???-??? -???-???-???-???-???- 15w 2d 144 lb 6 oz (+5 lb 6 oz) 118/78 Negative -???-???-???-???-???-???-??? -???-???-???-???-???- Negative 150 -???-???-???-???-???-???-??? -???-???-???-???-???- JV- no lof, vaginal bleeding, or cramping. test pos for opiods was likely due to eating poppy seeds. Pt reassured. follow up test was neg. anatomy scan ordered. 11/26/21 -???-???-???-???-???-???-??? -???-???-???-???-???- 19w 2d 143 lb 4 oz (+4 lb 4 oz) 114/70 Negative -???-???-???-???-???-???-??? -???-???-???-???-???- Negative 150 -???-???-???-???-???-???-??? -???-???-???-???-???- SM- no vb lo f good fm still having emesis but stable. 12/24/21 -???-???-???-???-???-???-??? -???-???-???-???-???- 23w 2d 148 lb 2 oz (+9 lb 2 oz) 118/78 Negative -???-???-???-???-???-???-??? -???-???-???-???-???- Negative 145 23 -???-???-???-???-???-???-??? -???-???-???-???-???- JV- pt has y [place] infetion today. requesting diflucan. pepcid and meclazine ordered. will be going to [place] for vacation 01/26/22 -???-???-???-???-???-???-??? -???-???-???-???-???- 28w 0d 149 lb 8 oz (+10 lb 8 oz) 126/76 Negative -???-???-???-???-???-???-??? -???-???-???-???-???- Negative 145 29 -???-???-???-???-???-???-??? -???-???-???-???-???- JV- received rhogam, tdap, and needs to re-do glucola 02/11/22 -???-???-???-???-???-???-??? -???-???-???-???-???- 30w 2d 153 lb 6 oz (+14 lb 6 oz) 112/76 Negative -???-???-???-???-???-???-??? -???-???-???-???-???- Negative 145 31 -???-???-???-???-???-???-??? -???-???-???-???-???- SM- no vb lo f good fm no regular ctx discussed reflux management 02/25/22 -???-???-???-???-???-???-??? -???-???-???-???-???- 32w 2d 158 lb (+19 lb) 124/62 Negative -???-???-???-???-???-???-??? -???-???-???-???-???- Negative 140 32 -???-???-???-???-???-???-??? -???-???-???-???-???- SM- no vb lo f good fm no regualr ctx ACOG First Trimester First Trimester: Desire for , Alcohol, Tobacco Cessation, Illicit/Recreational Drug/Substance Use, Intimate Partner Violence, Barriers to care, Unstable Housing, Communication Barriers, Environmental/Work Hazards, Anticipated Course of Care, Toxoplasmosis Precations, Use of Any medications, Sexual activity, Exercise, Dental Care, Sauna/Hot tub use, Seat Belt use, Childbirth classes/Hospital facilities, , Travel, Indications for Ultrasound and Screening for Aneuploidy Diagnostics Diagnostics Diagnostics: Blood Type AB NEGATIVE Antibody Screen NEGATIVE Glucose 1 Hr 50 gm 91 mg/dL (70-140) HIV 1 2 Antibody Non-Reactive (Nonreactive) Rubella IgG Antibody Reactive (Nonreactive) Hgb 11.3 g/dL (12.0-15.0) L Hct 32.9 % (37-47) L Chlamydia DNA (SOFIA) Negative (Negative) N.gonorrhoeae DNA (SOFIA) Negative (Negative) Details: HIV: Urine Culture: Sequential Screen: NIPT Screen: Results POC Urinalysis 2 Dip (Clinic) Office Urine Glucose Negative Last Edit by Julia Schaffer on 02/25/22 15:47 Office Urine Protein Negative Last Edit by Julia Schaffer on 02/25/22 15:47 Coding Level of Care Code OB Routine Diagnoses Rh negative status during O26.899; Z67.91 Supervision of other normal Z34.80 Z3A.32 Weeks of gestation: 32 weeks History of supraventricular tachycardia Z86.79 History of Z98.891 Asthma J45.909 Assessment and Plan Assessment and Plan (1) Rh negative status during : Status: Acute Comment: rhogam prn with bleeding, 28 wk and pp (2) Supervision of other normal : Status: Acute Comment: PRR ALVAREZ 04/20/22 girl PC: Meron. Spouse:Trang (3) : Status: Acute Qualifiers: Weeks of gestation: 32 weeks Qualified Code(s): Z3A.32 - 32 weeks gestation of Comment: declines carrier and genetic screen. Anatomy US normal (4) History of supraventricular tachycardia: Status: Acute Comment: not problematic (5) History of : Status: Acute Comment: CPD, pushed for 4 hours. plan RLTCS. RLTCS scheduled for 04/14 @ 12 with SM (6) Asthma: Status: Acute Comment: singular, ProAir stable controlled by PCP Orders: Orders POC Urinalysis 2 Dip (Clinic) Today 02/25/22 1607 <Electronically signed by Sonya Benoit MD> Date Sonya Benoit MD Cosigner Signature: Date (if applicable) CC: Britta Acevedo DO Work Phone: Start: 02-11-2022 End: 02-11-2022 Oxy[employer] Welder Office Visit Report Procedure Note: See Note; NOTES: [facility] [address] [place], [place] [address] OFFICE VISIT Date of Service: 02/11/22 MR#: [id number] Acct: [id number] Name: PRISCILA RICHARDSON Rep #: [id number] : 1985 Provider: Dr. Sonya valentino MD Age/Sex: 36/F Location: [facility] [place] Status: Signed Intake Vital Signs 10/29/21 15:52 02/11/22 16:03 02/11/22 16:04 Height 5 ft 5 in 5 ft 5 ft Weight: 153 lb 6 oz BMI 29.9 BP 112/76 Intake Visit Reasons: 30WK OB Pleating Supervisor Required: No Is patient in pain?: No Allergies amoxicillin Adverse Reaction (Mild, Verified 02/11/22 16:04) Vomiting erythromycin base Adverse Reaction (Mild, Verified 02/11/22 16:04) Vomiting azithromycin Adverse Reaction (Verified 02/11/22 16:04) Vomiting Medications albuterol sulfate 90 mcg/actuation aerosol inhaler (ProAir HFA) 1 puff inhalation Q6H PRN asthma attack 07/29/19 [History Confirmed 02/11/22] 103-folic acid 400 mcg-omeg3 32.5 mg-dha-fish oil chew tablet 2 ea PO DAILY 07/15/20 [History Confirmed 02/11/22] budesonide 90 mcg/actuation breath activated powder inhaler 1 inh inhalation BID 12/24/21 [History Confirmed 02/11/22] famotidine 20 mg tablet (Pepcid) 20 mg PO BID #60 tabs 12/24/21 [Rx Confirmed 02/11/22] meclizine 12.5 mg tablet 12.5 mg PO TID PRN motion sickness #90 tabs 12/24/21 [Rx Confirmed 02/11/22] docusate sodium 100 mg capsule (Colace) 100 mg PO DAILY 01/26/22 [History Confirmed 02/11/22] Last Menstral Period: 07/14/21 Current gender identity: female Zika: Zika virus screening: Negative : No PFSH PFSH Surgical History Delivery by section History of wisdom tooth extraction, class II edentulism Family History Father auto immune disorder psoriatic arthritis. Cancer multiple tumors with mets, no definitive primary. 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 Date Name GA/Weeks Outcome Route Bth Weight Gen Labor Lgth Anesthesia Del Locatn Provider FOB 07/16/20 Meron 40 live - full term Female epidural [facility] Tiffany Delivery Date: 07/16/20 Last Updated by: Mariana English arrest of descent HPI 30WK OB Details: PRISCILA RICHARDSON is a 36 year old who presents for routine OB visit. OB Visit ALVAREZ Calculator Estimated Delivery Date Method Current WG Current Estimate 04/20/22 LMP (Uncertain) 30w 2d Other Estimates 04/16/22 Ultrasound #1 30w 6d Expected Delivery Route/Plan RLTCS Specific Issue/Plans Covid status: vaccinated Flu vaccine: vaccinated Tdap vaccine: given Rhogam: given LARC form signed: declined movement and labor precautions reviewed. Problem list reviewed and updated with the most current plan of care details and appropriate orders placed. Relevant counseling for the gestational age provided. Continue routine care and follow up unless otherwise noted in visit notes/problem list details Initial Weight: 139 lb Date -???-???-???-???-???-???-??? -???-???-???-???-???- EGA Weight BP Urine Prot -???-???-???-???-???-???-??? -???-???-???-???-???- Glucose FHR FuHt Pres Dilation -???-???-???-???-???-???-??? -???-???-???-???-???- Effaced St Visit Note 09/16/21 -???-???-???-???-???-???-??? -???-???-???-???-???- 9w 1d 139 lb (+0 oz) 120/86 -???-???-???-???-???-???-??? -???-???-???-???-???- 170 -???-???-???-???-???-???-??? -???-???-???-???-???- SM- CRL cons with LMP SM- CRL 2.6cm cons with LMP 10/01/21 -???-???-???-???-???-???-??? -???-???-???-???-???- 11w 2d 144 lb (+5 lb) 114/80 -???-???-???-???-???-???-??? -???-???-???-???-???- 145 -???-???-???-???-???-???-??? -???-???-???-???-???- SM- no vb cr amping 10/29/21 -???-???-???-???-???-???-??? -???-???-???-???-???- 15w 2d 144 lb 6 oz (+5 lb 6 oz) 118/78 Negative -???-???-???-???-???-???-??? -???-???-???-???-???- Negative 150 -???-???-???-???-???-???-??? -???-???-???-???-???- JV- no lof, vaginal bleeding, or cramping. test pos for opiods was likely due to eating poppy seeds. Pt reassured. follow up test was neg. anatomy scan ordered. 11/26/21 -???-???-???-???-???-???-??? -???-???-???-???-???- 19w 2d 143 lb 4 oz (+4 lb 4 oz) 114/70 Negative -???-???-???-???-???-???-??? -???-???-???-???-???- Negative 150 -???-???-???-???-???-???-??? -???-???-???-???-???- - no vb lo f good fm still having emesis but stable. 12/24/21 -???-???-???-???-???-???-??? -???-???-???-???-???- 23w 2d 148 lb 2 oz (+9 lb 2 oz) 118/78 Negative -???-???-???-???-???-???-??? -???-???-???-???-???- Negative 145 23 -???-???-???-???-???-???-??? -???-???-???-???-???- TITI- pt has y east infetion today. requesting diflucan. pepcid and meclazine ordered. will be going to [place] for vacation 01/26/22 -???-???-???-???-???-???-??? -???-???-???-???-???- 28w 0d 149 lb 8 oz (+10 lb 8 oz) 126/76 Negative -???-???-???-???-???-???-??? -???-???-???-???-???- Negative 145 29 -???-???-???-???-???-???-??? -???-???-???-???-???- TITI- received rhogam, tdap, and needs to re-do glucola 02/11/22 -???-???-???-???-???-???-??? -???-???-???-???-???- 30w 2d 153 lb 6 oz (+14 lb 6 oz) 112/76 Negative -???-???-???-???-???-???-??? -???-???-???-???-???- Negative 145 31 -???-???-???-???-???-???-??? -???-???-???-???-???- SM- no vb lo f good fm no regular ctx discussed reflux management ACOG First Trimester First Trimester: Desire for , Alcohol, Tobacco Cessation, Illicit/Recreational Drug/Substance Use, Intimate Partner Violence, Barriers to care, Unstable Housing, Communication Barriers, Environmental/Work Hazards, Anticipated Course of Care, Toxoplasmosis Precations, Use of Any medications, Sexual activity, Exercise, Dental Care, Sauna/Hot tub use, Seat Belt use, Childbirth classes/Hospital facilities, , Travel, Indications for Ultrasound and Screening for Aneuploidy Diagnostics Diagnostics Diagnostics: Blood Type AB NEGATIVE Antibody Screen NEGATIVE Glucose 1 Hr 50 gm 91 mg/dL (70-140) HIV 1 2 Antibody Non-Reactive (Nonreactive) Rubella IgG Antibody Reactive (Nonreactive) Hgb 11.3 g/dL (12.0-15.0) L Hct 32.9 % (37-47) L Chlamydia DNA (SOFIA) Negative (Negative) N.gonorrhoeae DNA (SOFIA) Negative (Negative) Details: HIV: Urine Culture: Sequential Screen: NIPT Screen: Results POC Urinalysis 2 Dip (Clinic) Office Urine Glucose Negative Last Edit by Mariana English on 02/11/22 15:59 Office Urine Protein Negative Last Edit by Mariana English on 02/11/22 15:59 Coding Level of Care Code OB Routine Diagnoses Rh negative status during O26.899; Z67.91 Supervision of other normal Z34.80 Z3A.30 Weeks of gestation: 30 weeks History of supraventricular tachycardia Z86.79 History of Z98.891 Asthma J45.909 Assessment and Plan Assessment and Plan (1) Rh negative status during : Status: Acute Comment: rhogam prn with bleeding, 28 wk and pp (2) Supervision of other normal : Status: Acute Comment: PRR ALVAREZ 04/20/22 girl PC: Meron. Spouse:Trang (3) : Status: Acute Qualifiers: Weeks of gestation: 30 weeks Qualified Code(s): Z3A.30 - 30 weeks gestation of Comment: declines carrier and genetic screen. Anatomy US normal (4) History of supraventricular tachycardia: Status: Acute Comment: not problematic (5) History of : Status: Acute Comment: CPD, pushed for 4 hours. plan RLTCS (6) Asthma: Status: Acute Comment: singular, ProAir stable controlled by PCP Orders: Orders POC Urinalysis 2 Dip (Clinic) Today 02/11/22 0784 <Electronically signed by Sonya Benoit MD> Date Sonya Benoit MD [facility] Signature: Date (if applicable) CC: Britta Acevedo DO Work Phone: Start: 01-26-2022 End: 03-20-2022 Oxyhydrogen Welder Office Visit Report Procedure Note: See Note; NOTES: [facility] [address] [place], [place] [address] [place] [address] OFFICE VISIT Date of Service: 01/26/22 MR#: [id number] Acct: [id number] Name: PRISCILA RICHARDSON Rep #: [id number] : 1985 Provider: Dr. Kate Steele DO Age/Sex: 36/F Location: [facility] [place] Status: Signed Intake Vital Signs 10/01/21 15:22 01/26/22 15:28 Height 5 ft 5 in 5 ft Weight: 149 lb 8 oz BMI 29.2 BP 126/76 H Intake Visit Reasons: 27 WK OB/GLUCOSE Pleating Supervisor Required: No Is patient in pain?: No Allergies amoxicillin Adverse Reaction (Mild, Verified 01/26/22 15:28) Vomiting erythromycin base Adverse Reaction (Mild, Verified 01/26/22 15:28) Vomiting azithromycin Adverse Reaction (Verified 01/26/22 15:28) Vomiting Medications albuterol sulfate 90 mcg/actuation aerosol inhaler (ProAir HFA) 1 puff inhalation Q6H PRN asthma attack 07/29/19 [History Confirmed 01/26/22] 103-folic acid 400 mcg-omeg3 32.5 mg-dha-fish oil chew tablet 2 ea PO DAILY 07/15/20 [History Confirmed 01/26/22] budesonide 90 mcg/actuation breath activated powder inhaler 1 inh inhalation BID 12/24/21 [History Confirmed 01/26/22] famotidine 20 mg tablet (Pepcid) 20 mg PO BID #60 tabs 12/24/21 [Rx Confirmed 01/26/22] meclizine 12.5 mg tablet 12.5 mg PO TID PRN motion sickness #90 tabs 12/24/21 [Rx Confirmed 01/26/22] docusate sodium 100 mg capsule (Colace) 100 mg PO DAILY 01/26/22 [History Confirmed 01/26/22] Last Menstral Period: 07/14/21 Zika: Zika virus screening: Negative : No PFSH PFSH Surgical History Delivery by section History of wisdom tooth extraction, class II edentulism Family History Father auto immune disorder psoriatic arthritis. Cancer multiple tumors with mets, no definitive primary. 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 Date Name GA/Weeks Outcome Route Bth Weight Infant Gen Labor Lgth Anesthesia Del Locatn Provider FOB 07/16/20 Meron 40 live - full term Female epidural [facility] Delivery Date: 07/16/20 Last Updated by: Mariana English arrest of descent HPI 27 WK OB/GLUCOSE Details: PRISCILA RICHARDSON is a 36 year old who presents for routine OB visit. OB Visit ALVAREZ Calculator Estimated Delivery Date Method Current WG Current Estimate 04/20/22 LMP (Uncertain) 28w 0d Other Estimates 04/16/22 Ultrasound #1 28w 4d Expected Delivery Route/Plan RLTCS Specific Issue/Plans Covid status: vaccinated Flu vaccine: vaccinated Tdap vaccine: [] Rhogam: [] LARC form signed: [] Problem list reviewed and updated with the most current plan of care details and appropriate orders placed. Relevant counseling for the gestational age provided. Continue routine care and follow up unless otherwise noted in visit notes/problem list details Initial Weight: 139 lb Date -???-???-???-???-???-???-??? -???-???-???-???-???- EGA Weight BP Urine Prot -???-???-???-???-???-???-??? -???-???-???-???-???- Glucose FHR FuHt Pres Dilation -???-???-???-???-???-???-??? -???-???-???-???-???- Effaced St Visit Note 09/16/21 -???-???-???-???-???-???-??? -???-???-???-???-???- 9w 1d 139 lb (+0 oz) 120/86 -???-???-???-???-???-???-??? -???-???-???-???-???- 170 -???-???-???-???-???-???-??? -???-???-???-???-???- SM- CRL cons with LMP SM- CRL 2.6cm cons with LMP 10/01/21 -???-???-???-???-???-???-??? -???-???-???-???-???- 11w 2d 144 lb (+5 lb) 114/80 -???-???-???-???-???-???-??? -???-???-???-???-???- 145 -???-???-???-???-???-???-??? -???-???-???-???-???- SM- no vb cr amping 10/29/21 -???-???-???-???-???-???-??? -???-???-???-???-???- 15w 2d 144 lb 6 oz (+5 lb 6 oz) 118/78 Negative -???-???-???-???-???-???-??? -???-???-???-???-???- Negative 150 -???-???-???-???-???-???-??? -???-???-???-???-???- JV- no lof, vaginal bleeding, or cramping. test pos for opiods was likely due to eating poppy seeds. Pt reassured. follow up test was neg. anatomy scan ordered. 11/26/21 -???-???-???-???-???-???-??? -???-???-???-???-???- 19w 2d 143 lb 4 oz (+4 lb 4 oz) 114/70 Negative -???-???-???-???-???-???-??? -???-???-???-???-???- Negative 150 -???-???-???-???-???-???-??? -???-???-???-???-???- SM- no vb lo f good fm still having emesis but stable. 12/24/21 -???-???-???-???-???-???-??? -???-???-???-???-???- 23w 2d 148 lb 2 oz (+9 lb 2 oz) 118/78 Negative -???-???-???-???-???-???-??? -???-???-???-???-???- Negative 145 23 -???-???-???-???-???-???-??? -???-???-???-???-???- JV- pt has y [place] infetion today. requesting diflucan. pepcid and meclazine ordered. will be going to [place] for vacation 01/26/22 -???-???-???-???-???-???-??? -???-???-???-???-???- 28w 0d 149 lb 8 oz (+10 lb 8 oz) 126/76 Negative -???-???-???-???-???-???-??? -???-???-???-???-???- Negative 145 29 -???-???-???-???-???-???-??? -???-???-???-???-???- JV- received rhogam, tdap, and needs to re-do glucola ACOG First Trimester First Trimester: Desire for , Alcohol, Tobacco Cessation, Illicit/Recreational Drug/Substance Use, Intimate Partner Violence, Barriers to care, Unstable Housing, Communication Barriers, Environmental/Work Hazards, Anticipated Course of Care, Toxoplasmosis Precations, Use of Any medications, Sexual activity, Exercise, Dental Care, Sauna/Hot tub use, Seat Belt use, Childbirth classes/Hospital facilities, , Travel, Indications for Ultrasound and Screening for Aneuploidy Diagnostics Diagnostics Diagnostics: Blood Type AB NEGATIVE Antibody Screen POSITIVE H HIV 1 2 Antibody Non-Reactive (Nonreactive) Rubella IgG Antibody Reactive (Nonreactive) Hgb 11.3 g/dL (12.0-15.0) L Hct 32.9 % (37-47) L Chlamydia DNA (SOFIA) Negative (Negative) N.gonorrhoeae DNA (SOFIA) Negative (Negative) Details: HIV: Urine Culture: Sequential Screen: NIPT Screen: Office Meds RhoGAM Ultra-Filtered PLUS Performing Provider: Kate Small DO Administered by: Brittany Murphy on 01/26/22 15:49 Dose Route Admin Location Lot Number Expiration Date [facility] Manufactu rer 1,500 unit IM left gluteus [id number] 04/09/23 1335-6477-54 [employer] Results POC Urinalysis 2 Dip (Clinic) Office Urine Glucose Negative Last Edit by Brittany Murphy on 01/26/22 15:41 Office Urine Protein Negative Last Edit by Brittany Murphy on 01/26/22 15:41 Immunizations Adacel(Tdap Adolesn/Adult)(PF) Performing Provider: Kate Small DO Administered by: Brittany Murphy on 01/26/22 15:49 Dose Route Admin Location Lot Number Expiration Date [facility] Manufactu rer 0.5 mL IM Left Deltoid [id number] 09/03/23 [id number] [employer] VIS Given Date VIS Provided VIS Publication Date 01/26/22 Single Vaccine 14 Eligibility Eligibility Date Funding Source Not Applicable Coding Level of Care Code OB Routine Assessment and Plan Assessment and Plan Orders: Orders Rhogam Injection Today O26.899 - Other specified related conditions, unspecified trimester, Z67.91 - Unspecified blood type, Rh negative Tdap Immunization Today Z23 - Encounter for immunization POC Urinalysis 2 Dip (Clinic) Today Type Screen Today O26.899 - Other specified related conditions, unspecified trimester, Z67.91 - Unspecified blood type, Rh negative CBC W/Diff, Automated Today Z34.80 - Encounter for supervision of other normal , unspecified trimester Glucose Challenge Gest 1H 50g 01/27/22 Z34.80 - Encounter for supervision of other normal , unspecified trimester 01/26/22 1606 <Electronically signed by Kate Small DO> Date Kate Small DO Cosigner Signature: Date (if applicable) CC: Britta Acevedo DO Work Phone: Start: 12-24-2021 End: 12-24-2021 [employer] Office Visit Report Procedure Note: See Note; NOTES: [facility] [place] [address] [place], [place] [address] OFFICE VISIT Date of Service: 12/24/21 MR#: [id number] Acct: [id number] Name: PRISCILA RICHARDSON Rep #: [id number] : 1985 Provider: Dr. Kate Steele DO Age/Sex: 36/F Location: [facility] [place] Status: Signed Intake Vital Signs 12/24/21 10:50 Height 5 ft Weight: 148 lb 2 oz BMI 28.9 BP 118/78 Intake Visit Reasons: 23 WK OB Pleating Supervisor Required: No Is patient in pain?: No Allergies amoxicillin Adverse Reaction (Mild, Verified 12/24/21 10:51) Vomiting erythromycin base Adverse Reaction (Mild, Verified 12/24/21 10:51) Vomiting azithromycin Adverse Reaction (Verified 12/24/21 10:51) Vomiting Medications albuterol sulfate 90 mcg/actuation aerosol inhaler 1 puff INHALATION Q6H PRN 07/29/19 [History Confirmed 12/24/21] PNV 024-gtsmn-ifjrb-3-fish oil 2 ea PO DAILY 07/15/20 [History Confirmed 12/24/21] budesonide 90 mcg/actuation breath activated powder inhaler 1 inh INHALATION BID 12/24/21 [History Confirmed 12/24/21] famotidine 20 mg tablet 20 mg PO BID #60 tab 12/24/21 [Rx Confirmed 12/24/21] fluconazole 150 mg tablet 150 mg PO DAILY 2 Days #2 tab 12/24/21 [Rx Confirmed 12/24/21] meclizine 12.5 mg tablet 12.5 mg PO TID PRN #90 tab 12/24/21 [Rx Confirmed 12/24/21] Last Menstral Period: 07/14/21 Zika: Zika virus screening: Negative : No PFSH PFSH Surgical History Delivery by section History of wisdom tooth extraction, class II edentulism Family History Father auto immune disorder psoriatic arthritis. Cancer multiple tumors with mets, no definitive primary. 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 Date Name GA/Weeks Outcome Route Bth Weight Gen Labor Lgth Anesthesia Del Locatn Provider FOB 07/16/20 Meron 40 live - full term Female epidural [facility] Delivery Date: 07/16/20 arrest of descent Mariana English HPI 23 WK OB Details: PRISCILA RICHARDSON is a 36 year old who presents for routine OB visit. OB Visit ALVAREZ Calculator Estimated Delivery Date Method Current WG Current Estimate 04/20/22 LMP (Uncertain) 23w 2d Other Estimates 04/16/22 Ultrasound #1 23w 6d Expected Delivery Route/Plan RLTCS Specific Issue/Plans Covid status: vaccinated Flu vaccine: vaccinated Tdap vaccine: [] Rhogam: [] LARC form signed: [] Problem list reviewed and updated with the most current plan of care details and appropriate orders placed. Relevant counseling for the gestational age provided. Continue routine care and follow up unless otherwise noted in visit notes/problem list details Initial Weight: 139 lb Date -???-???-???-???-???-???-??? -???-???-???-???-???- EGA Weight BP Urine Prot -???-???-???-???-???-???-??? -???-???-???-???-???- Glucose FHR FuHt Pres Dilation -???-???-???-???-???-???-??? -???-???-???-???-???- Effaced St Visit Note 09/16/21 -???-???-???-???-???-???-??? -???-???-???-???-???- 9w 1d 139 lb (+0 oz) 120/86 -???-???-???-???-???-???-??? -???-???-???-???-???- 170 -???-???-???-???-???-???-??? -???-???-???-???-???- SM- CRL cons with LMP SM- CRL 2.6cm cons with LMP 10/01/21 -???-???-???-???-???-???-??? -???-???-???-???-???- 11w 2d 144 lb (+5 lb) 114/80 -???-???-???-???-???-???-??? -???-???-???-???-???- 145 -???-???-???-???-???-???-??? -???-???-???-???-???- SM- no vb cr amping 10/29/21 -???-???-???-???-???-???-??? -???-???-???-???-???- 15w 2d 144 lb 6 oz (+5 lb 6 oz) 118/78 Negative -???-???-???-???-???-???-??? -???-???-???-???-???- Negative 150 -???-???-???-???-???-???-??? -???-???-???-???-???- JV- no lof, vaginal bleeding, or cramping. test pos for opiods was likely due to eating poppy seeds. Pt reassured. follow up test was neg. anatomy scan ordered. 11/26/21 -???-???-???-???-???-???-??? -???-???-???-???-???- 19w 2d 143 lb 4 oz (+4 lb 4 oz) 114/70 Negative -???-???-???-???-???-???-??? -???-???-???-???-???- Negative 150 -???-???-???-???-???-???-??? -???-???-???-???-???- SM- no vb lo f good fm still having emesis but stable. 12/24/21 -???-???-???-???-???-???-??? -???-???-???-???-???- 23w 2d 148 lb 2 oz (+9 lb 2 oz) 118/78 Negative -???-???-???-???-???-???-??? -???-???-???-???-???- Negative 145 23 -???-???-???-???-???-???-??? -???-???-???-???-???- JV- pt has [place] infetion today. requesting diflucan. pepcid and meclazine ordered. will be going to [place] for vacation ACOG First Trimester First Trimester: Desire for , Alcohol, Tobacco Cessation, Illicit/Recreational Drug/Substance Use, Intimate Partner Violence, Barriers to care, Unstable Housing, Communication Barriers, Environmental/Work Hazards, Anticipated Course of Care, Toxoplasmosis Precations, Use of Any medications, Sexual activity, Exercise, Dental Care, Sauna/Hot tub use, Seat Belt use, Childbirth classes/Hospital facilities, , Travel, Indications for Ultrasound and Screening for Aneuploidy Diagnostics Diagnostics Diagnostics: Blood Type AB NEGATIVE Antibody Screen POSITIVE H HIV 1 2 Antibody Non-Reactive (Nonreactive) Rubella IgG Antibody Reactive (Nonreactive) Hgb 13.2 g/dL (12.0-15.0) Hct 36.4 % (37-47) L Chlamydia DNA (SOFIA) Negative (Negative) N.gonorrhoeae DNA (SOFIA) Negative (Negative) Details: HIV: Urine Culture: Sequential Screen: NIPT Screen: Results POC Urinalysis 2 Dip (Clinic) Office Urine Glucose Negative Last Edit by Brittany Murphy on 12/24/21 10:54 Office Urine Protein Negative Last Edit by Brittany Murphy on 12/24/21 10:54 Coding Level of Care Code OB Routine Diagnoses Rh negative status during O26.899; Z67.91 Supervision of other normal Z34.80 Z3A.23 Weeks of gestation: 23 weeks History of supraventricular tachycardia Z86.79 History of Z98.891 Asthma J45.909 Assessment and Plan Assessment and Plan (1) Rh negative status during : Status: Acute Comment: rhogam prn with bleeding, 28 wk and pp (2) Supervision of other normal : Status: Acute Comment: PRR ALVAREZ 04/20/22 PC: Meron. Spouse:Trang (3) : Status: Acute Qualifiers: Weeks of gestation: 23 weeks Qualified Code(s): Z3A.23 - 23 weeks gestation of Comment: declines carrier and genetic screen. Anatomy US normal (4) History of supraventricular tachycardia: Status: Acute Comment: not problematic (5) History of : Status: Acute Comment: CPD, pushed for 4 hours. plan RLTCS (6) Asthma: Status: Acute Comment: singular, ProAir stable controlled by PCP Plan Details Other Medications: New: meclizine 12.5 mg PO TID PRN 90 tabs 4RF motion sickness famotidine (Pepcid) 20 mg PO BID 60 tabs 4RF fluconazole (Diflucan) take 72 hours apart 150 mg PO DAILY 2 days 2 tabs 0RF A49.1 Other Orders: Orders: POC Urinalysis 2 Dip (Clinic) Today 12/24/21 1121 <Electronically signed by Kate Small DO> Date Kate Small DO Cosigner Signature: Date (if applicable) CC: Britta Acevedo DO Work Phone: Start: 11-26-2021 End: 11-26-2021 [employer] Office Visit Report Procedure Note: See Note; NOTES: [facility] [address] [place] [address]. [address] [place] [address] OFFICE VISIT Date of Service: 11/26/21 MR#: [id number] Acct: [id number] Name: PRISCILA RICHARDSON Rep #: [id number] : 1985 Provider: Dr. Sonya valentino MD Age/Sex: 36/F Location: [facility] [place] Status: Signed Intake Vital Signs 11/26/21 16:04 Height 5 ft 5 in Weight: 143 lb 4 oz BMI 23.8 BP 114/70 Intake Visit Reasons: 19 WK OB Pleating Supervisor Required: No Is patient in pain?: No Allergies amoxicillin Adverse Reaction (Mild, Verified 11/26/21 16:04) Vomiting erythromycin base Adverse Reaction (Mild, Verified 11/26/21 16:04) Vomiting azithromycin Adverse Reaction (Verified 11/26/21 16:04) Vomiting Medications albuterol sulfate 90 mcg/actuation aerosol inhaler 1 puff INHALATION Q6H PRN 07/29/19 [History Confirmed 11/26/21] PNV 321-kzfrd-wsgta-3-fish oil 2 ea PO DAILY 07/15/20 [History Confirmed 11/26/21] Last Menstral Period: 07/14/21 Zika: Zika virus screening: Negative : No PFSH PFSH Surgical History Delivery by section History of wisdom tooth extraction, class II edentulism Family History Father auto immune disorder psoriatic arthritis. Cancer multiple tumors with mets, no definitive primary. 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 Date Name GA/Weeks Outcome Route Bth Weight Infant Gen Labor Lgth Anesthesia Del Locatn Provider FOB 07/16/20 Meron 40 live - full term Female epidural [facility] Tiffany Delivery Date: 07/16/20 arrest of descent Mariana English HPI 19 WK OB Details: PRISCILA RICHARDSON is a 36 year old who presents for routine OB visit. OB Visit ALVAREZ Calculator Estimated Delivery Date Method Current WG Current Estimate 04/20/22 LMP (Uncertain) 19w 2d Other Estimates 04/16/22 Ultrasound #1 19w 6d Expected Delivery Route/Plan RLTCS Specific Issue/Plans Covid status: vaccinated Flu vaccine: vaccinated Tdap vaccine: [] Rhogam: [] LARC form signed: [] Problem list reviewed and updated with the most current plan of care details and appropriate orders placed. Relevant counseling for the gestational age provided. Continue routine care and follow up unless otherwise noted in visit notes/problem list details Initial Weight: 139 lb Date -???-???-???-???-???-???-??? -???-???-???-???-???- EGA Weight BP Urine Prot -???-???-???-???-???-???-??? -???-???-???-???-???- Glucose FHR FuHt Pres Dilation -???-???-???-???-???-???-??? -???-???-???-???-???- Effaced St Visit Note 09/16/21 -???-???-???-???-???-???-??? -???-???-???-???-???- 9w 1d 139 lb (+0 oz) 120/86 -???-???-???-???-???-???-??? -???-???-???-???-???- 170 -???-???-???-???-???-???-??? -???-???-???-???-???- SM- CRL cons with LMP SM- CRL 2.6cm cons with LMP 10/01/21 -???-???-???-???-???-???-??? -???-???-???-???-???- 11w 2d 144 lb (+5 lb) 114/80 -???-???-???-???-???-???-??? -???-???-???-???-???- 145 -???-???-???-???-???-???-??? -???-???-???-???-???- SM- no vb cr amping 10/29/21 -???-???-???-???-???-???-??? -???-???-???-???-???- 15w 2d 144 lb 6 oz (+5 lb 6 oz) 118/78 Negative -???-???-???-???-???-???-??? -???-???-???-???-???- Negative 150 -???-???-???-???-???-???-??? -???-???-???-???-???- JV- no lof, vaginal bleeding, or cramping. test pos for opiods was likely due to eating poppy seeds. Pt reassured. follow up test was neg. anatomy scan ordered. 11/26/21 -???-???-???-???-???-???-??? -???-???-???-???-???- 19w 2d 143 lb 4 oz (+4 lb 4 oz) 114/70 -???-???-???-???-???-???-??? -???-???-???-???-???- 150 -???-???-???-???-???-???-??? -???-???-???-???-???- SM- no vb lo f good fm still having emesis but stable. ACOG First Trimester First Trimester: Desire for , Alcohol, Tobacco Cessation, Illicit/Recreational Drug/Substance Use, Intimate Partner Violence, Barriers to care, Unstable Housing, Communication Barriers, Environmental/Work Hazards, Anticipated Course of Care, Toxoplasmosis Precations, Use of Any medications, Sexual activity, Exercise, Dental Care, Sauna/Hot tub use, Seat Belt use, Childbirth classes/Hospital facilities, , Travel, Indications for Ultrasound and Screening for Aneuploidy Diagnostics Diagnostics Diagnostics: Blood Type AB NEGATIVE Antibody Screen POSITIVE H HIV 1 2 Antibody Non-Reactive (Nonreactive) Rubella IgG Antibody Reactive (Nonreactive) Hgb 13.2 g/dL (12.0-15.0) Hct 36.4 % (37-47) L Chlamydia DNA (SOFIA) Negative (Negative) N.gonorrhoeae DNA (SOFIA) Negative (Negative) Details: HIV: Urine Culture: Sequential Screen: NIPT Screen: Coding Level of Care Code OB Routine Diagnoses Rh negative status during O26.899; Z67.91 Supervision of other normal Z34.80 Z3A.19 Weeks of gestation: 19 weeks History of supraventricular tachycardia Z86.79 History of Z98.891 Asthma J45.909 Assessment and Plan Assessment and Plan (1) Rh negative status during : Status: Acute Comment: rhogam prn with bleeding, 28 wk and pp (2) Supervision of other normal : Status: Acute Comment: PRR ALVAREZ 04/20/22 PC: Meron. Spouse:Trang (3) : Status: Acute Qualifiers: Weeks of gestation: 19 weeks Qualified Code(s): Z3A.19 - 19 weeks gestation of Comment: declines carrier and genetic screen (4) History of supraventricular tachycardia: Status: Acute Comment: not problematic (5) History of : Status: Acute Comment: CPD, pushed for 4 hours. plan RLTCS (6) Asthma: Status: Acute Comment: singular, ProAir stable controlled by PCP Plan Details Other Orders: Orders: POC Urinalysis 2 Dip (Clinic) Today 11/26/21 1645 <Electronically signed by Sonya Benoit MD> Date Sonya Benoit MD Cosigner Signature: Date (if applicable) CC: Britta Acevedo DO Work Phone: Start: 10-29-2021 End: 10-29-2021 [employer] Office Visit Report Procedure Note: See Note; NOTES: [facility] [address] [place] [address] OFFICE VISIT Date of Service: 10/29/21 MR#: [id number] Acct: [id number] Name: PRISCILA RICHARDSON Rep #: [id number] : 1985 Provider: Dr. Kate Steele DO Age/Sex: 36/F Location: [facility] [place] Status: Signed Intake Vital Signs 10/29/21 15:52 Height 5 ft 5 in Weight: 144 lb 6 oz BMI 24.0 BP 118/78 Intake Visit Reasons: 15 WK OB Pleating Supervisor Required: No Is patient in pain?: No Allergies amoxicillin Adverse Reaction (Mild, Verified 10/29/21 15:53) Vomiting erythromycin base Adverse Reaction (Mild, Verified 10/29/21 15:53) Vomiting azithromycin Adverse Reaction (Verified 10/29/21 15:53) Vomiting Medications albuterol sulfate 90 mcg/actuation aerosol inhaler 1 puff INHALATION Q6H PRN 07/29/19 [History Confirmed 10/29/21] PNV 486-rofdn-jpsvm-3-fish oil 2 ea PO DAILY 07/15/20 [History Confirmed 10/29/21] Last Menstral Period: 07/14/21 Zika: Zika virus screening: Negative : No PFSH PFSH Surgical History Delivery by section History of wisdom tooth extraction, class II edentulism Family History Father auto immune disorder psoriatic arthritis. Cancer multiple tumors with mets, no definitive primary. Possibly melanoma Heart disease AFIB Mother Diabetes Grandmother Kidney disease Aunt Heart disease Social History Smoking Status: Never smoker alcohol intake: current details: pre- substance use type: does not use caffeine: Yes what type of physical activity do you participate in: walking frequency: 3-4 times per week seatbelt use: always do you feel safe at home: Yes additional social history: Trang- Senior Cost Estimator Patient [employer]ung[employer]jandra Marley 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 Date Name GA/Weeks Outcome Route Bth Weight Infant Gen Labor Lgth Anesthesia Del Locatn Provider FOB 07/16/20 Meron 40 live - full term Female epidural [facility] Delivery Date: 07/16/20 arrest of descent Mariana English HPI 15 WK OB Details: PRISCILA RICHARDSON is a 36 year old who presents for routine OB visit. OB Visit ALVAREZ Calculator Estimated Delivery Date Method Current WG Current Estimate 04/20/22 LMP (Uncertain) 15w 2d Other Estimates 04/16/22 Ultrasound #1 15w 6d Expected Delivery Route/Plan RLTCS Specific Issue/Plans Covid status: vaccinated Flu vaccine: [] Tdap vaccine: [] Rhogam: [] LARC form signed: [] Problem list reviewed and updated with the most current plan of care details and appropriate orders placed. Relevant counseling for the gestational age provided. Continue routine care and follow up unless otherwise noted in visit notes/problem list details Initial Weight: 139 lb Date -???-???-???-???-???-???-??? -???-???-???-???-???- EGA Weight BP Urine Prot -???-???-???-???-???-???-??? -???-???-???-???-???- Glucose FHR FuHt Pres Dilation -???-???-???-???-???-???-??? -???-???-???-???-???- Effaced St Visit Note 09/16/21 -???-???-???-???-???-???-??? -???-???-???-???-???- 9w 1d 139 lb (+0 oz) 120/86 -???-???-???-???-???-???-??? -???-???-???-???-???- 170 -???-???-???-???-???-???-??? -???-???-???-???-???- SM- CRL cons with LMP SM- CRL 2.6cm cons with LMP 10/01/21 -???-???-???-???-???-???-??? -???-???-???-???-???- 11w 2d 144 lb (+5 lb) 114/80 -???-???-???-???-???-???-??? -???-???-???-???-???- 145 -???-???-???-???-???-???-??? -???-???-???-???-???- SM- no vb cr amping 10/29/21 -???-???-???-???-???-???-??? -???-???-???-???-???- 15w 2d 144 lb 6 oz (+5 lb 6 oz) 118/78 Negative -???-???-???-???-???-???-??? -???-???-???-???-???- Negative 150 -???-???-???-???-???-???-??? -???-???-???-???-???- JV- no lof, vaginal bleeding, or cramping. test pos for opiods was likely due to eating poppy seeds. Pt reassured. follow up test was neg. anatomy scan ordered. ACOG First Trimester First Trimester: Desire for , Alcohol, Tobacco Cessation, Illicit/Recreational Drug/Substance Use, Intimate Partner Violence, Barriers to care, Unstable Housing, Communication Barriers, Environmental/Work Hazards, Anticipated Course of Care, Toxoplasmosis Precations, Use of Any medications, Sexual activity, Exercise, Dental Care, Sauna/Hot tub use, Seat Belt use, Childbirth classes/Hospital facilities, , Travel, Indications for Ultrasound and Screening for Aneuploidy Diagnostics Diagnostics Diagnostics: Blood Type AB NEGATIVE Antibody Screen POSITIVE H HIV 1 2 Antibody Non-Reactive (Nonreactive) Rubella IgG Antibody Reactive (Nonreactive) Hgb 13.2 g/dL (12.0-15.0) Hct 36.4 % (37-47) L Chlamydia DNA (SOFIA) Negative (Negative) N.gonorrhoeae DNA (SOFIA) Negative (Negative) Details: HIV: Urine Culture: Sequential Screen: NIPT Screen: Results POC Urinalysis 2 Dip (Clinic) Office Urine Glucose Negative Last Edit by Brittany Murphy on 10/29/21 16:01 Office Urine Protein Negative Last Edit by Brittany Murphy on 10/29/21 16:01 Coding Level of Care Code OB Routine Diagnoses Rh negative status during O26.899; Z67.91 Supervision of other normal Z34.80 Z3A.11 Weeks of gestation: 11 weeks History of supraventricular tachycardia Z86.79 History of Z98.891 Asthma J45.909 Assessment and Plan Assessment and Plan (1) Rh negative status during : Status: Acute Comment: rhogam prn with bleeding, 28 wk and pp (2) Supervision of other normal : Status: Acute Comment: PRR ALVAREZ 04/20/22 PC: Meron. Spouse:Trang (3) : Status: Acute Qualifiers: Weeks of gestation: 11 weeks Qualified Code(s): Z3A.11 - 11 weeks gestation of Comment: declines carrier and genetic screen (4) History of supraventricular tachycardia: Status: Acute Comment: not problematic (5) History of : Status: Acute Comment: CPD, pushed for 4 hours. 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 [place] [address] OFFICE VISIT Date of Service: 10/01/21 MR#: [id number] Acct: [id number] Name: PRISCILA RICHARDSON Rep #: [id number] : 1985 Provider: Dr. Sonya valentino MD Age/Sex: 36/F Location: [facility] Status: Signed Intake Vital Signs 10/01/21 15:22 Height 5 ft 5 in Weight: 144 lb BMI 23.9 BP 114/80 Intake Visit Reasons: 11WK OB Chief Complaint: est ob Pleating Supervisor Required: No Is patient in pain?: No Allergies amoxicillin Adverse Reaction (Mild, Verified 10/01/21 15:22) Vomiting erythromycin base Adverse Reaction (Mild, Verified 10/01/21 15:22) Vomiting azithromycin Adverse Reaction (Verified 10/01/21 15:22) Vomiting Medications albuterol sulfate 90 mcg/actuation aerosol inhaler 1 puff INHALATION Q6H PRN 07/29/19 [History Confirmed 10/01/21] PNV 174-aerrd-ekhdf-3-fish oil 2 ea PO DAILY 07/15/20 [History Confirmed 10/01/21] Last Menstral Period: 07/14/21 Zika: Zika virus screening: Negative : No PFSH PFSH Surgical History Delivery by section History of wisdom tooth extraction, class II edentulism Family History Father auto immune disorder psoriatic arthritis. Cancer multiple tumors with mets, no definitive primary. 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 Date Name GA/Weeks Outcome Route Bth Weight Gen Labor Lgth Anesthesia Del Locatn Provider FOB 07/16/20 Meron 40 live - full term Female epidural [facility] Tiffany Delivery Date: 07/16/20 arrest of descent Mariana English HPI 11WK OB Details: PRISCILA RICHARDSON is a 36 year old who presents for routine OB visit. OB Visit ALVAREZ Calculator Estimated Delivery Date Method Current WG Current Estimate 04/20/22 LMP (Uncertain) 11w 2d Other Estimates 04/16/22 Ultrasound #1 11w 6d Expected Delivery Route/Plan RLTCS Specific Issue/Plans Covid status: vaccinated Flu vaccine: [] Tdap vaccine: [] Rhogam: [] LARC form signed: [] Problem list reviewed and updated with the most current plan of care details and appropriate orders placed. Relevant counseling for the gestational age provided. Continue routine care and follow up unless otherwise noted in visit notes/problem list details Initial Weight: 139 lb Date -???-???-???-???-???-???-??? -???-???-???-???-???- EGA Weight BP Urine Prot -???-???-???-???-???-???-??? -???-???-???-???-???- Glucose FHR FuHt Pres Dilation -???-???-???-???-???-???-??? -???-???-???-???-???- Effaced St Visit Note 09/16/21 -???-???-???-???-???-???-??? -???-???-???-???-???- 9w 1d 139 lb (+0 oz) 120/86 -???-???-???-???-???-???-??? -???-???-???-???-???- 170 -???-???-???-???-???-???-??? -???-???-???-???-???- SM- CRL cons with LMP SM- CRL 2.6cm cons with LMP 10/01/21 -???-???-???-???-???-???-??? -???-???-???-???-???- 11w 2d 144 lb (+5 lb) 114/80 -???-???-???-???-???-???-??? -???-???-???-???-???- 145 -???-???-???-???-???-???-??? -???-???-???-???-???- SM- no vb cr amping ACOG First Trimester First Trimester: Desire for , Alcohol, Tobacco Cessation, Illicit/Recreational Drug/Substance Use, Intimate Partner Violence, Barriers to care, Unstable Housing, Communication Barriers, Environmental/Work Hazards, Anticipated Course of Care, Toxoplasmosis Precations, Use of Any medications, Sexual activity, Exercise, Dental Care, Sauna/Hot tub use, Seat Belt use, Childbirth classes/Hospital facilities, , Travel, Indications for Ultrasound and Screening for Aneuploidy Diagnostics Diagnostics Diagnostics: Blood Type AB NEGATIVE Antibody Screen POSITIVE H HIV 1 2 Antibody Non-Reactive (Nonreactive) Rubella IgG Antibody Reactive (Nonreactive) Hgb 13.2 g/dL (12.0-15.0) Hct 36.4 % (37-47) L Chlamydia DNA (SOFIA) Negative (Negative) N.gonorrhoeae DNA (SOFIA) Negative (Negative) Details: HIV: Urine Culture: Sequential Screen: NIPT Screen: Coding Level of Care Code OB Routine Diagnoses Rh negative status during O26.899; Z67.91 Supervision of other normal Z34.80 Z3A.11 Weeks of gestation: 11 weeks History of supraventricular tachycardia Z86.79 History of Z98.891 Asthma J45.909 Assessment and Plan Assessment and Plan (1) Rh negative status during : Status: Acute Comment: rhogam prn with bleeding, 28 wk and pp (2) Supervision of other normal : Status: Acute Comment: PRR ALVAREZ 04/20/22 PC: Meron. Spouse:Trang (3) : Status: Acute Qualifiers: Weeks of gestation: 11 weeks Qualified Code(s): Z3A.11 - 11 weeks gestation of Comment: declines carrier and genetic screen Orders: Orders: Urine Drug Screen ([facility]) Today (4) History of supraventricular tachycardia: Status: Acute Comment: not problematic (5) History of : Status: Acute Comment: CPD, pushed for 4 hours. plan RLTCS (6) Asthma: Status: Acute Comment: singular, ProAir stable controlled by PCP Plan Details Other Orders: Orders: Culture, Urine Today Z87.440 10/01/21 1616 <Electronically signed by Sonya Benoit MD> Date Sonya Benoit MD Cosigner Signature: Date (if applicable) CC: Britta Acevedo DO Work Phone: Start: 09-16-2021 End: 09-16-2021 Oxyhydrogen Welder Office Visit Report Procedure Note: See Note; NOTES: [facility] [address] [address] [place], [place] [address] OFFICE VISIT Date of Service: 09/16/21 MR#: [id number] Acct: [id number] Name: PRISCILA RICHARDSON Rep #: [id number] : 1985 Provider: Dr. Sonya valentino MD Age/Sex: 36/F Location: [facility] Status: Signed Intake Vital Signs 09/16/21 11:12 09/16/21 11:20 Height 5 ft 5 in Weight: 139 lb BMI 23.1 BP 120/86 H Intake Visit Reasons: NOB LMP 07/14 Chief Complaint: NEW OB LMP 07/14 Pleating Supervisor Required: No Is patient in pain?: No Allergies amoxicillin Adverse Reaction (Mild, Verified 09/09/21 15:34) Vomiting erythromycin base Adverse Reaction (Mild, Verified 09/09/21 15:34) Vomiting azithromycin Adverse Reaction (Verified 09/09/21 15:34) Vomiting Medications albuterol sulfate 90 mcg/actuation aerosol inhaler 1 puff INHALATION Q6H PRN 07/29/19 [History Confirmed 09/16/21] PNV 574-gbfsp-uaedr-3-fish oil 2 ea PO DAILY 07/15/20 [History Confirmed 09/16/21] Last Menstral Period: 07/14/21 Zika: Zika virus screening: Negative : No PFSH PFSH Surgical History Delivery by section History of wisdom tooth extraction, class II edentulism Family History Father auto immune disorder psoriatic arthritis. Cancer multiple tumors with mets, no definitive primary. 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 Date Name GA/Weeks Outcome Route Bth Weight Infant Gen Labor Lgth Anesthesia Del Francescoatn Provider FOB 07/16/20 Meron 40 live - full term Female epidural [facility] Tiffany Delivery Date: 07/16/20 arrest of descent Mariana English HPI NOB LMP 07/14 Details: PRISCILA RICHARDSON is a 36 year old who presents for New OB visit. OB Visit ALVAREZ Calculator Estimated Delivery Date Method Current WG Current Estimate 04/20/22 LMP (Uncertain) 9w 1d Other Estimates 04/16/22 Ultrasound #1 9w 5d Estimated Due Date: 07/17/20 Expected Delivery Route/Plan RLTCS Specific Issue/Plans Covid status: vaccinated Flu vaccine: [] Tdap vaccine: [] Rhogam: [] LARC form signed: [] Problem list reviewed and updated with the most current plan of care details and appropriate orders placed. Relevant counseling for the gestational age provided. Continue routine care and follow up unless otherwise noted in visit notes/problem list details Initial Weight: 139 lb Date -???-???-???-???-???-???-??? -???-???-???-???-???- EGA Weight BP Urine Prot -???-???-???-???-???-???-??? -???-???-???-???-???- Glucose FHR FuHt Pres Dilation -???-???-???-???-???-???-??? -???-???-???-???-???- Effaced St Visit Note 09/16/21 -???-???-???-???-???-???-??? -???-???-???-???-???- 9w 1d 139 lb (+0 oz) 120/86 -???-???-???-???-???-???-??? -???-???-???-???-???- 170 -???-???-???-???-???-???-??? -???-???-???-???-???- SM- CRL cons with LMP SM- CRL 2.6cm cons with LMP Menstrual History Last Menstral Period: 07/14/21 Reported LMP: definite Normal amount/duration: Yes On hormonal BC at conception: No Antepartum Record Genetic Screening: Congenital Heart Defect: Other, Neural Tube Defect: Other, Hemoglobinopathy Or Carrier: Other, Cystic Fibrosis: Other, Chromosome Abnormality: Other, David-Sachs: Other, Hemophilia: Other, Intellectual Disability/Autism: Other, Recurrent Loss/Stillbirth: Other, Other Structural Defect: Other, Other Genetic Disease: Other and Maternal Metabolic Disorder: Other Infection History: Live with someone with TB or Exposed to TB: No, Patient or Partner has history of Genital Herpes: No, Rash or Viral illness since last mentrual period: No, Prior GBS-Infected child: No, History of STD: No, HIV Infection: No, History of Hepatitis: No, Recent travel outside of : Yes (06/2021 [place]), Concern for hepatitis exposure: No and Varicella immune: Yes (chicken pox as child) Comments: covid vaccine complete Medical History Medical History: Positive: Heart disease (SVT not problematic), Pulmonary (e.g.,TB,Asthma) (inhaler prn), Seasonal allergies (prn med), Drug/latex allergies/reactions (as noted), 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) and Operations/hospitalizations (c section) and Negative: Diabetes, Hypertension, Auto- immune disorder, Kidney disease/UTI, Neurologic/epilepsy, Psychiatric, Depression/ depression, Hepatitis/liver disease, Varicosities/phlebitis, Thyroid dysfunction, Trauma/domestic violence, History of blood transfusions, D (Rh) Sensitized, Breast, Anesthetic complications, History of abnormal pap, Uterine anomaly/chuckie, Infertility, Anti-retroviral treatment, Relevant family history and Other ACOG First Trimester First Trimester: Desire for , Alcohol, Tobacco Cessation, Illicit/Recreational Drug/Substance Use, Intimate Partner Violence, Barriers to care, Unstable Housing, Communication Barriers, Environmental/Work Hazards, Anticipated Course of Care, Toxoplasmosis Precations, Use of Any medications, Sexual activity, Exercise, Dental Care, Sauna/Hot tub use, Seat Belt use, Childbirth classes/Hospital facilities, , Travel, Indications for Ultrasound and Screening for Aneuploidy ROS Const Reports system reviewed and no additional complaints, except as documented, Reports fatigue and Denies fever(s) Eyes Reports system reviewed and no additional complaints, except as documented ENT Reports system reviewed and no additional complaints, except as documented Card Denies chest pain and Denies dyspnea Resp Reports system reviewed and no additional complaints, except as documented, Denies cough and Denies dyspnea GI Denies abdominal pain and Reports nausea Reports system reviewed and no additional complaints, except as documented Musc Reports system reviewed and no additional complaints, except as documented Skin/Breast Reports system reviewed and no additional complaints, except as documented Neuro Yes system reviewed and no additional complaints, except as documented Psych Reports system reviewed and no additional complaints, except as documented Endo Reports system reviewed and no additional complaints, except as documented and Reports fatigue Exam Const General: healthy appearing, comfortable and no acute distress Orientation: alert HENMT Head: normal to inspection, normocephalic and atraumatic Ears: hearing grossly normal bilaterally and external ears normal Nose: external nose normal and nares normal Mouth: oral mucosae normal Teeth and gingiva: dentition normal Eyes General: appearance normal, both eyes and all related structures Neck Neck: normal visual inspection, no lymphadenopathy and supple Thyroid: thyroid normal Chest Chest palpation inspection: normal inspection of the chest Breast inspection: normal inspection of the breasts and normal inspection of the axillae Breast palpation: normal palpation of the breasts and normal palpation of the axillae Resp Effort Inspection: normal respiratory effort GI Inspection: normal to inspection Palpation: soft and no hepatosplenomegaly General: bladder normal to palpation External Female Exam: normal external appearance and normal appearance of the urethra Urethra: normal appearance of the urethra Speculum Exam - Vagina: normal appearance of the vagina and normal vaginal discharge Speculum Exam - Cervix: normal appearance of the cervix Bimanual Exam- Vagina Uterus: normal bimanual exam, bladder normal to palpation, non-tender and other Bimanual Exam- Adnexa, other: non-tender Skin General: no rashes or lesions noted Neuro Motor: muscle tone normal throughout and no movement abnormalities noted Extrem General: normal to inspection and full ROM Supplemental Info ACOG book given and patient encouraged to read about nutrition, exercise, weight gain, and food avoidance in . Coding Level of Care Code OB Routine Diagnoses Rh negative status during O26.899; Z67.91 Supervision of other normal Z34.80 Z34.90 History of supraventricular tachycardia Z86.79 History of Z98.891 Asthma J45.909 Subchorionic hematoma O41.8X90; O46.8X9 Assessment and Plan Assessment and Plan (1) Rh negative status during : Status: Acute Comment: rhogam prn with bleeding, 28 wk and pp (2) Supervision of other normal : Status: Acute Comment: ALVAREZ 04/20/22 PC: Meron. Spouse:Trang (3) : Status: Acute Comment: declines carrier and genetic screen (4) History of supraventricular tachycardia: Status: Acute Comment: not problematic (5) History of : Status: Acute Comment: CPD, pushed for 4 hours. plan RLTCS (6) Asthma: Status: Acute Comment: singular, ProAir stable controlled by PCP (7) Subchorionic hematoma: Status: Acute Comment: resolving, rhogam given. Plan - Dr. Sonya Benoit MD: Patient oriented to practice and discussed care expectations and screenings. ACOG book offered to patient. Discussed routine and specially indicated labs if needed- patient consents to testing. see problem list details for plan information. Optional screening including carrier screenings, neural tube defect screening, sequential screening, and NIPT screening offered to patient and patient chose: declines 09/16/21 1132 <Electronically signed by Sonya Benoit MD> Date Sonya Benoit MD Cosigner Signature: Date (if applicable) CC: Britta Acevedo DO Work Phone: Start: 09-10-2021 End: 09-10-2021 Transvaginal w/Preg US Procedure Note: See Note; NOTES: [facility] [address] [place] [address] Transvaginal w/Preg US MR#: [id number] Acct: [id number] Name: PRISCILA RICHARDSON Rep #: [id number] : 1985 F 36 From: Shiraz ewing MD PCP: Dr. Britta Acevedo, DO Status: REG CLI Study: Transvaginal w/Preg US Date of Exam: 09/10/21 Exam# [id number] Ordering Dr: Ana Cristina Roe NP AUTO SERVICE STATION ATTENDANT -C INDICATION: well being EXAMINATION: US OB Transvaginal TECHNIQUE: Transabdominal pelvic ultrasound was performed. Grayscale, spectral waveform, and color flow Doppler evaluation of the adnexa. COMPARISON: None. FINDINGS: UTERUS: Measures 11 x 8.5 x 6.1 cm. RIGHT OVARY: Measures 1.9 x 2 x 2.1 cm. Normal. LEFT OVARY: Measures 3.2 x 2.2 x 2.3 cm. 2.2 cm corpus luteal cyst.. FREE FLUID: None. INTRAUTERINE GESTATIONAL SAC(s) (size/shape): Single. . YOLK SAC: Identified POLE: Identified CRL 2 cm. ESTIMATED GESTATION AGE: 8 weeks and 3 days. HEART MOTION: 180 bpm. PLACENTA: Not visualized due to age. SUBCHORIONIC HEMORRHAGE: None. AMNIOTIC FLUID: Qualitatively normal. US/Transvaginal w/Preg US IMPRESSION: Single live intrauterine . Estimated gestational age is 8 weeks and 3 days. Electronically Signed: Shiraz Escobar MD at 21:21 EST , CC: RASTA Roe; Dr. Britta Acevedo DO Plater Apprentice: Signed Britta Acevedo DO Work Phone: Start: 09-09-2021 End: 09-09-2021 Office Visit Report Procedure Note: See Note; NOTES: [facility] [address] [place] [address] OFFICE VISIT Date of Service: 09/09/21 MR#: [id number] Acct: [id number] Patient: PRISCILA RICHARDSON Rep # : [id number] : 1985 Provider: RASTA avendaño Age/Sex: 36/F Location: [facility] Status: Signed Intake Vital Signs 09/09/21 15:33 Height 5 ft 5 in Weight: 140 lb BMI 23.3 Intake Visit Reasons: Rhogam Chief Complaint: est ob Pleating Supervisor Required: No Is patient in pain?: No Allergies amoxicillin Adverse Reaction (Mild, Verified 09/09/21 15:34) Vomiting erythromycin base Adverse Reaction (Mild, Verified 09/09/21 15:34) Vomiting azithromycin Adverse Reaction (Verified 09/09/21 15:34) Vomiting Medications albuterol sulfate 90 mcg/actuation aerosol inhaler 1 puff INHALATION Q6H PRN 07/29/19 [History Confirmed 09/09/21] PNV 280-ughbh-ppqgk-3-fish oil 2 ea PO DAILY 07/15/20 [History Confirmed 09/09/21] Is last menstrual period known: Yes Post menopausal: No Patient : Yes Current gender identity: female Office Procedures Injections Procedure performed by: Mariana English Lot number: [id number] Engineering 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: [employer] date: 07/09/22 Dose of injection: 1500U Site 2 of injection: left gluteal IM Medication Given: Yes Results POC Urinalysis Dip (Clinic) Office Urine Color Straw Last Edit by Mariana English on 09/09/21 15:50 Office Urine Clarity Hazy Last Edit by Mariana English on 09/09/21 15:50 Office Urine Glucose Negative Last Edit by Mariana English on 09/09/21 15:50 Office Urine Ketones Negative Last Edit by Mariana English on 09/09/21 15:50 Off Ur Spec Howe 1.005 Last Edit by Mariana English on 09/09/21 15:50 Office Urine pH Last Edit by Mariana English on 09/09/21 15:50 Office Urine Bilirubin Negative Last Edit by Mariana English on 09/09/21 15:50 Office Urine Urobilinogen Negative Last Edit by Mariana English on 09/09/21 15:50 Office Urine Blood Trace Last Edit by Mariana English on 09/09/21 15:50 Office Urine Blood Hemolyzed Last Edit by Mariana English on 09/09/21 15:50 Office Urine Protein Negative Last Edit by Mariana English on 09/09/21 15:50 Office Urine Nitrate Negative Last Edit by Mariana English on 09/09/21 15:50 Off Ur Leukocytes Positive Last Edit by Mariana English on 09/09/21 15:50 09/09/21 1604 <Electronically signed by Ana Cristina MAGDALENO> Date Ana Cristina MAGDALENO Cosigner Signature: Date (if applicable) CC: Britta Acevedo DO Work Phone: Start: 06-16-2021 End: 06-16-2021 Oxyhydrogen Welder Office Visit Report Procedure Note: See Note; NOTES: [facility] [address] [place] [address] OFFICE VISIT Date of Service: 06/16/21 MR#: [id number] Acct: [id number] Name: PRISCILA RICHARDSON Rep #: [id number] : 1985 Provider: RASTA avendaño Age/Sex: 36/F Location: [facility] Status: Signed Intake Vital Signs 06/16/21 09:36 Height 5 ft 5 in Weight: 142 lb 6 oz BMI 23.6 BP 108/70 Intake Visit Reasons: IUD removal ins? Allergies amoxicillin Adverse Reaction (Mild, Verified 06/16/21 09:35) Vomiting erythromycin base Adverse Reaction (Mild, Verified 06/16/21 09:35) Vomiting azithromycin Adverse Reaction (Verified 06/16/21 09:35) Vomiting Medications albuterol sulfate 90 mcg/actuation aerosol inhaler 1 puff INHALATION Q6H PRN 07/29/19 [History Confirmed 06/16/21] PNV 163-hujst-wiemk-3-fish oil 2 ea PO DAILY 07/15/20 [History Confirmed 06/16/21] Is last menstrual period known: Yes Last Menstral Period: 06/05/21 [facility] Surgical History Delivery by section History of wisdom tooth extraction, class II edentulism Family History Father auto immune disorder Social History Smoking Status: Never smoker alcohol intake: current details: pre- substance use type: does not use caffeine: Yes what type of physical activity do you participate in: walking frequency: 3-4 times per week seatbelt use: always do you feel safe at home: Yes additional social history: Stephen Su 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 Details: PRISCILA RICHARDSON is a 36 year old who presents for IUD removal. Father passed from cancer last week, although receiving chemo was doing well and was actually in [place] when became ill, was able to get him home and passed next day. States had multiple tumors throughout body including lungs but unable to determine primary sight. She would like to proceed with IUD removal. May use condoms for short time. Taking vitamin Did have menses last week, first in awhile with IUD. Female Reproductive History Last Menstral Period: 06/05/21 Pregancy History 1 Elective abortions Hx Para 1 Spontaneous abortions Hx # Term Pregnancies 1 Ectopic pregnancies Hx # Pregnancies Multiple births # of living children 1 Past Pregnancies Del. Date Name GA/Weeks Outcome Route Bth Weight Infant Gen Labor Lgth Anesthesia Del Locatn Provider FOB 07/16/20 Meron 40 live - full term Female epidural [facility] Delivery Date: 07/16/20 arrest of descent Mariana English Constitutional: Reports system reviewed and no additional complaints, except as documented Eyes Eyes: Reports system reviewed and no additional complaints, except as documented GI GI: Denies abdominal pain or change in bowel habits : Reports as per HPI Exam Const General: cooperative, no acute distress (tearful discussing father) and well groomed Nutritional Appearance: well nourished Orientation: oriented x3 General: bladder normal to palpation External Female Exam: normal external appearance and normal appearance of the urethra Urethra: normal appearance of the urethra Speculum Exam - Vagina: normal appearance of the vagina, normal vaginal discharge, no lesions and nontender Speculum Exam - Cervix: normal appearance of the cervix and other (smooth, nonfriable) Bimanual Exam- Vagina Uterus: normal bimanual exam, uterine size normal, bladder normal to palpation, uterine shape normal, uterine mobility normal and non-tender Bimanual Exam- Adnexa, other: normal adnexae, no masses and non-tender Office Procedures IUD Removal IUD Removal Details: Sign out documentation: Completed Procedure: Speculum placed in vagina, IUD string visualized and grasped with ring forceps. IUD easily removed in its entirety and patient tolerated well. Coding Level of Care Code No Charge Diagnoses Encounter for IUD removal Z30.432 Assessment and Plan Assessment and Plan (1) Encounter for IUD removal: Orders: Orders: IUD Removal Today Z30.432 Plan - Ana Cristina Roe NP, [employer] ATTENDANT-C: Continue PNV Condoms until ready to conceive Call with first positive test. RTO prn 06/16/21 0958 <Electronically signed by Ana Cristina Roe NP [employer] ATTENDANT-C> Date Ana Cristian Roe NP [employer] ATTENDANT-C Cosigner Signature: Date (if applicable) CC: Britta Acevedo DO Work Phone: Start: 10-14-2020 End: 10-14-2020 [employer] Welder Office Visit Report Procedure Note: See Note; NOTES: [facility] [place] [place] [address] OFFICE VISIT Date of Service: 10/14/20 MR#: [id number] Acct: [id number] Name: PRISCILA RICHARDSON Rep #: [id number] : 1985 Provider: Dr. Aparna elelr MD Age/Sex: 35/F Location: [facility] Status: Signed Intake Vital Signs 10/14/20 Height 5 ft 5 in 10/14/20 Weight: 148 lb 10/14/20 BMI 24.6 10/14/20 BP 120/84 H Intake Visit Reasons: string check Pleating Supervisor Required: No Is patient in pain?: No Allergies amoxicillin Adverse Reaction (Mild, Verified 10/14/20 11:50) Vomiting erythromycin base Adverse Reaction (Mild, Verified 10/14/20 11:50) Vomiting azithromycin Adverse Reaction (Verified 10/14/20 11:50) Vomiting Medications albuterol sulfate 90 mcg/actuation aerosol inhaler 1 puff INHALATION Q6H PRN 07/29/19 [History Confirmed 10/14/20] Pnv No.103/Folic/Om3s/Fish Oil [ Gummies] 2 ea PO DAILY 07/15/20 [History Confirmed 10/14/20] clotrimazole 1 % topical cream 1 applic TOPICAL BID 14 Days #30 g 10/14/20 [Rx Confirmed 10/14/20] levonorgestrel 20 mcg/24 hours (6 yrs) 52 mg intrauterine device 1 device INTRA-UTER ONCE 10/14/20 [History] Post menopausal: No Patient : No PFSH Surgical History Delivery by section (Acute) History of wisdom tooth extraction, class II edentulism (Acute) Family History Father auto immune disorder Social History (Updated 10/14/20 @ 17:[address] 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 Denies concerns with IUD. Baby now 3 months old. She goes back to work next week. Recently treated for yeast on breasts. Starting to feel burning again. Pregancy History 1 Elective abortions Hx Para 1 Spontaneous abortions Hx # Term Pregnancies 1 Ectopic pregnancies Hx # Pregnancies Multiple births # of living children 1 Past Pregnancies Del. Date Name GA/Weeks Outcome Route Bth Weight Gen Labor Lgth Anesthesia Del Locatn Provider FOB 07/16/20 Meron 40 live - full term Female epidural [facility] Tiffany Delivery Date: 07/16/20 arrest of descent Mariana English Const Constitutional: Reports system reviewed and no additional complaints, except as docu Eyes Eyes: Reports system reviewed and no additional complaints, except as docu GI GI: Denies abdominal pain or change in bowel habits : Reports as per HPI Exam Const General: no acute distress Nutritional Appearance: well nourished Orientation: oriented x3 General: bladder normal to palpation External Female Exam: normal external appearance, normal appearance of the urethra Urethra: normal appearance of the urethra Speculum Exam - Vagina: normal appearance of the vagina, normal vaginal discharge, no lesions, nontender Speculum Exam - Cervix: normal appearance of the cervix, other (smooth, nonfriable) Bimanual Exam- Vagina Uterus: normal bimanual exam, uterine size normal, bladder normal to palpation, uterine shape normal, uterine mobility normal, uterus non-tender Bimanual Exam- Adnexa, other: normal adnexae, no adnexal masses, adnexae non-tender Assessment Plan Problems 1. IUD check up Z30.431 2. Monilial intertrigo B37.2 Plan - Ana Cristina Roe [employer]ATION ATTENDANT, [employer] ATTENDANT-C IUD properly placed Rx clotrimazole RTO annual exam, prn Medications New: clotrimazole 1% 1 applic topical BID 2 weeks 30 grams 0RF Coding Level of Care Code Off vis,est,level 3 Diagnoses IUD check up Z30.431 Monilial intertrigo B37.2 10/14/20 1714 <Electronically signed by Aparna Allen MD> Date Aparna Allen MD 10/14/20 1208<Electronically signed by Ana Cristina Roe [employer] SERVICE [employer]ATION ATTENDANT [employer]ATION ATTENDANT-C> Cosigner Signature: Date (if applicable) Ana Cristina Roe NP [employer] ATTENDANT-C CC: Britta Acevedo DO Work Phone: Start: 09-04-2020 End: 09-04-2020 Oxyhydrogen Welder Office Visit Report Procedure Note: See Note; NOTES: [facility] [address] [place] [address] OFFICE VISIT Date of Service: 09/04/20 MR#: [id number] Acct: [id number] Name: PRISCILA RICHARDSON Rep #: [id number] : 1985 Provider: Dr. Aparna eller MD Age/Sex: 35/F Location: [facility] Status: Signed Intake Vital Signs 09/04/20 Height 5 ft 5 in 09/04/20 Weight: 148 lb 6 oz 09/04/20 BP 110/90 H Intake Visit Reasons: IUD insertion Pleating Supervisor Required: No Is patient in pain?: No Allergies amoxicillin Adverse Reaction (Mild, Verified 09/04/20 11:56) Vomiting erythromycin base Adverse Reaction (Mild, Verified 09/04/20 11:56) Vomiting azithromycin Adverse Reaction (Verified 09/04/20 11:56) Vomiting Medications albuterol sulfate 90 mcg/actuation aerosol inhaler 1 puff INHALATION Q6H PRN 07/29/19 [History Confirmed 09/04/20] Pnv No.103/Folic/Om3s/Fish Oil [ Gummies] 2 ea PO DAILY 07/15/20 [History Confirmed 09/04/20] Post menopausal: No Patient : No : Yes PFSH PFSH Surgical History Delivery by section (Acute) History of wisdom tooth extraction, class II edentulism (Acute) Family History Father auto immune disorder Social History (Updated 09/04/20 @ 12:[address] 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 Date Name GA/Weeks Outcome Route Bth Weight Gen Labor Lgth Anesthesia Del [facility] Provider FOB 07/16/20 Meron 40 live - full term Female epidural [facility] Tiffany Delivery Date: 07/16/20 arrest of descent Mariana English HPI IUD insertion: Details: PRISCILA RICHARDSON is a 35 year old who presents for IUD insertion. Has not been sexually active since delivery. ROS Const Constitutional: Denies chills, fatigue or fever(s) : Denies genital lesions, genital itching, blood in urine, pelvic pain, urinary urgency, vaginal discharge, vaginal dryness, vaginal odor or vaginal itching Exam Const General: cooperative, healthy appearing, comfortable, no acute distress, well developed, well groomed Nutritional Appearance: average body habitus, well nourished Orientation: alert, awake, oriented x3 HENMT Head: normal to inspection, normocephalic, atraumatic Eyes Pupils: PERRL, accommodation normal EOM: EOM intact bilaterally Resp Effort Inspection: normal respiratory effort, able to speak in complete sentences, symmetric chest movement Cardio Rate: regular rate GI Inspection: normal to inspection, non-distended Palpation: soft, no guarding, no masses, not rigid, nontender General: bladder normal to palpation External Female Exam: normal external appearance, normal appearance of the urethra, no erythema, no tenderness externally, no lesions, No lesion of urethra Urethra: normal appearance of the urethra, no lesions Speculum Exam - Vagina: normal appearance of the vagina, normal vaginal discharge, normal vaginal discharge, not erythematous, no lacerations, no lesions, No vaginal bleeding, no masses, no swelling, nontender Speculum Exam - Cervix: normal appearance of the cervix, no cervical discharge, no lesions, no masses, nontender Bimanual Exam- Vagina Uterus: bladder normal to palpation, No cervical tenderness OB/External Speculum: No vaginal bleeding Speculum Exam: no vaginal bleeding Neuro General: alert, awake, oriented x3, CN's II-XI intact bilaterally Cranial Nerves: PERRL, accommodation normal, EOM intact bilaterally Cognition: normal cognition Speech: speech normal Gait: normal gait Psych Appearance: grossly normal, well kempt Mental Status: mental status grossly normal Mood: congruent mood Affect: normal affect Speech and Movement: speech and movement normal Attitude: cooperative Thought Process: normal Thought Content: normal Judgment: judgment good Office Procedures Mirena IUD IUD GC/Chlamydia:: not done Test: Yes Not Applicable Consent Signed: Yes Time out checklist: patient, procedure, site marked/identified, positioning of patient, supplies available, allergies confirmed, team agrees on procedure IUD: Yes Mirena Details: Sign in Communication: Completed Sign out documentation: Completed The uterus sounded to 7 cm. After prepping the cervix with betadine and using sterile technique, the IUD was inserted without difficulty and the string was cut to 3cm from the external os of the cervix. All instruments were removed from the vagina and excellent hemostasis was noted. Procedure Summary: patient tolerated the procedure well without complication. Office Meds levonorgestrel Performing Provider: Aparna Allen MD Documented (not given) by: Aparna Allen MD on 09/04/20 12:12 Dose Route Admin Location Lot Number Expiration Date NDC Manufactu rer 1 insert intrauterine Assessment Plan 1. Encounter for IUD insertion Z30.430 Plan Successful Mirena IUD insertion Will see back in 6 weeks for string check Post-procedure precautions reviewed with patient Orders Orders: Mirena IUD Today Medications New: levonorgestrel 1 insert intrauterine ONCE 1 ea 0RF Coding Level of Care Code No Charge Diagnoses Encounter for IUD insertion Z30.430 Additional Codes IUD (54878) 09/04/20 1215 <Electronically signed by Aparna Allen MD> Date Aparna Allen MD Cosigner Signature: Date (if applicable) CC: Britta Rajputon DO Work Phone: Start: 08-21-2020 End: 08-21-2020 Oxyhydrogen Welder Office Visit Report Procedure Note: See Note; NOTES: [facility] [address] [place] [address] OFFICE VISIT Date of Service: 08/21/20 MR#: [id number] Acct: [id number] Name: PIRSCILA RICHARDSON Rep #: [id number] : 1985 Provider: Dr. Aparna eller MD Age/Sex: 35/F Location: [facility] Status: Signed Intake Vital Signs 08/21/20 Height 5 ft 5 in 08/21/20 Weight: 148 lb 2 oz 08/21/20 BP 128/86 H Intake Visit Reasons: 6WK PP / DECLINED iud. EARLY DUE KADEN TIME Pleating Supervisor Required: No Is patient in pain?: No Allergies amoxicillin Adverse Reaction (Mild, Verified 08/21/20 10:01) Vomiting erythromycin base Adverse Reaction (Mild, Verified 08/21/20 10:01) Vomiting azithromycin Adverse Reaction (Verified 08/21/20 10:01) Vomiting Medications albuterol sulfate 90 mcg/actuation aerosol inhaler 1 puff INHALATION Q6H PRN 07/29/19 [History Confirmed 08/21/20] Pnv No.103/Folic/Om3s/Fish Oil [ Gummies] 2 ea PO DAILY 07/15/20 [History Confirmed 08/21/20] : Yes PFSH Surgical History Delivery by section (Acute) History of wisdom tooth extraction, class II edentulism (Acute) Family History Father auto immune disorder Social History (Updated 08/21/20 @ 11:[address] 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 Date Name GA/Weeks Outcome Route Bth Weight Gen Labor Lgth Anesthesia Del [facility] Provider FOB 07/16/20 Meron 40 live - full term Female epidural [facility] Tiffany Delivery Date: 07/16/20 arrest of descent Mariana English Depression Screen PHQ-2/9 If score is 2 or greater, continue Source: Developed by Drs. Girma Hannah, Leticia Dueñas, Rohith Cross and colleagues, with an educational ute from [employer]. Scoring: Total Score Depression Severity Action 1-4 Minimal depression No action needed 5-9 Mild depression Repeat PHQ-9 at follow up 10-14 Moderate depression Make tx plan,consider counseling, fup, prescription 15-19 Moderately severe depression Prescribe drugs and counseling immediately 20-27 Severe depression If poor response, refer pt to mental health specialist Post HPI 6WK PP / DECLINED iud. EARLY DUE KADEN TIME: Details: PRISCILA RICHARDSON is a 35 year old who presents for her post visit. Bleeding initially stopped then had full bleeding around New Years. Baby has stopped latching, so she is now primarily pumping breast milk. Reports feeling like her lower abdomen is somewhat swollen. Denies symptoms of anxiety and depression. Infant Feeding: Breast Menses resumed: Yes [place] since delivery: No Emotional Support: Yes Last Pap:: 2019 ROS Const Denies chills, Denies difficulty sleeping, Denies fatigue, Denies fever(s), Denies headache(s), Denies poor appetite, Denies night sweats Eyes Denies blurry vision, Denies change in vision, Denies floaters ENT Denies headache(s) Card Denies chest pain, Denies shortness of breath Resp Denies shortness of breath GI Denies constipation, Denies nausea, Denies vomiting Denies abnormal vaginal bleeding, Denies difficulty urinating, Denies painful urination, Reports nipple discharge, Denies pelvic pain, Denies vaginal discharge, Denies vaginal dryness, Denies vaginal odor, Denies vaginal itching Skin/Breast Denies breast lump, Denies breast pain, Denies breast skin changes, Denies breast swelling, Reports nipple discharge Neuro No headache(s) Psych Denies lack of enjoyment, Denies anxiety, Denies depression, Denies thoughts of hurting/killing others, Denies hopelessness, Denies irritability Endo Denies fatigue Exam Const General: cooperative, healthy appearing, comfortable, no acute distress, well developed, well groomed Nutritional Appearance: average body habitus Orientation: alert, awake, oriented x3 [facility] Head: normal to inspection, normocephalic, atraumatic Eyes Pupils: PERRL, accommodation normal EOM: EOM intact bilaterally Neck Neck: normal visual inspection Thyroid: thyroid normal, symmetrical, not diffusely enlarged, not firm, no masses, nontender Lymphatic: no lymphadenopathy noted Chest Chest palpation inspection: normal inspection of the chest Breast inspection: normal inspection of the breasts, normal inspection of the axillae Breast palpation: normal palpation of the breasts, normal palpation of the axillae, no axillary lymphadenopathy Resp Effort Inspection: normal respiratory effort, able to speak in complete sentences, symmetric chest movement Cardio Rate: regular rate GI Inspection: normal to inspection Palpation: soft, no guarding, no masses, not rigid, nontender General: bladder normal to palpation External Female Exam: normal external appearance, normal appearance of the urethra, no erythema, no external swelling, no lesions Urethra: normal appearance of the urethra Speculum Exam - Vagina: normal appearance of the vagina, normal vaginal discharge, not erythematous, no lacerations, no lesions, vaginal bleeding, nontender Speculum Exam - Cervix: normal appearance of the cervix, no lesions, no masses, nontender Bimanual Exam- Vagina Uterus: bladder normal to palpation, No cervical tenderness OB/External Speculum: vaginal bleeding Speculum Exam: vaginal bleeding Skin General: no rashes or lesions noted, elasticity normal, turgor normal Neuro General: alert, awake, oriented x3, gait normal, tone normal, moves all extremities Cranial Nerves: CN's II-XI intact bilaterally, PERRL, accommodation normal, EOM intact bilaterally, no nystagmus Cognition: normal cognition Speech: speech normal Gait: normal gait Psych Appearance: grossly normal, well kempt Mental Status: mental status grossly normal Affect: normal affect Speech and Movement: speech and movement normal Attitude: cooperative Thought Process: normal Thought Content: normal Judgment: judgment good Assessment Plan 1. care and examination Z39.2 Plan Normal exam Plan Mirena for control Negative depression screen (pumping) Pap 2019 Will see back in 1 year for annual exam Coding Level of Care Code No Charge Diagnoses care and examination Z39.2 08/21/20 1136 <Electronically signed by Aparna Allen MD> Date Aparna Allen MD Cosigner Signature: Date (if applicable) CC: Britta Acevedo DO Work Phone: Start: 08-05-2020 End: 08-05-2020 Oxyhydrogen Welder Office Visit Report Procedure Note: See Note; NOTES: [facility] [address] [place] [address]. [address] [place], [place] [address] OFFICE VISIT Date of Service: 08/05/20 MR#: [id number] Acct: [id number] Name: PRISCILA RICHARDSON Rep #: [id number] : 1985 Provider: Dr. Aparna eller MD Age/Sex: 35/F Location: [facility] [place] Status: Signed Intake Vital Signs 08/05/20 Weight: 142 lb 8 oz 08/05/20 BP 112/70 Intake Visit Reasons: left groin pain Pleating Supervisor Required: No Is patient in pain?: Yes Allergies amoxicillin Adverse Reaction (Mild, Verified 08/05/20 14:33) Vomiting erythromycin base Adverse Reaction (Mild, Verified 08/05/20 14:33) Vomiting azithromycin Adverse Reaction (Verified 08/05/20 14:33) Vomiting Medications albuterol sulfate 90 mcg/actuation aerosol inhaler 1 puff INHALATION Q6H PRN 07/29/19 [History Confirmed 08/05/20] Docusate Sodium [Colace] 200 mg PO DAILY 07/15/20 [History Confirmed 08/05/20] Ferrous Sulfate 325 mg PO 07/15/20 [History Confirmed 08/05/20] Pnv No.103/Folic/Om3s/Fish Oil [ Gummies] 2 ea PO DAILY 07/15/20 [History Confirmed 08/05/20] Naproxen [Naprosyn] 250 - 500 mg PO Q8H PRN PRN #30 tab 07/16/20 [Rx Confirmed 08/05/20] acetaminophen 325 mg capsule 325 mg PO ONCE PRN 07/28/20 [History Confirmed 08/05/20] Is last menstrual period known: No Post menopausal: No Patient : No : Yes PFSH Surgical History Delivery by section (Acute) History of wisdom tooth extraction, class II edentulism (Acute) Family History Father auto immune disorder Social History (Updated 08/05/20 @ 14:[address] 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 Reports intermittent sharp, burning pains. Reports worse with movement and walking up and down steps. Reports also has dull pain in back. Normal bowel movements. Denies pain with urination. Pain is at lateral edge of incision, but also sometimes shoots down her leg. Does improve with tylenol. Pregancy History 1 Elective abortions Hx Para 1 Spontaneous abortions Hx # Term Pregnancies 1 Ectopic pregnancies Hx # Pregnancies Multiple births # of living children 1 Past Pregnancies Del. Date Name GA/Weeks Outcome Route [facility] Meron 40 live - full term Female epidural [facility] Tiffany Delivery Date: 07/16/20 arrest of descent [place] English Const Constitutional: Denies chills or fever(s) GI GI: Denies change in stools, constipation, nausea or vomiting : Reports pelvic pain; denies difficulty urinating, painful urination, urinary frequency, urinary incontinence, urinary hesitancy, urinary urgency, vaginal discharge, vaginal odor or vaginal itching Exam Const General: cooperative, healthy appearing, comfortable, well developed, well groomed Orientation: alert, awake, oriented x3 Neck Neck: normal visual inspection, full ROM Resp Effort Inspection: normal respiratory effort, able to speak in complete sentences, symmetric chest movement Cardio Rate: regular rate GI Inspection: incision Other: Small area of firmness at left lateral aspect of incision that is tender to palpation. No erythema, drainage, or induration. Skin General: no rashes or lesions noted, elasticity normal, turgor normal Lesions: no lesions Rashes: no rashes Neuro General: alert, awake, oriented x3 Cranial Nerves: CN's II-XI intact bilaterally, PERRL, EOM intact bilaterally Cognition: normal cognition Speech: speech normal Gait: normal gait Extrem General: normal to inspection, full ROM, no pedal edema Psych Appearance: grossly normal Mental Status: mental status grossly normal Mood: congruent mood Affect: normal affect Speech and Movement: speech and movement normal Attitude: cooperative Thought Process: normal Thought Content: normal Assessment Plan 1. Left groin pain R10.32 Plan Patient presents with left groin pain for the last week. Area of firmness noted at lateral aspect of incision site. Incision healing well. Discussed likely nerve irritation from fascial closure Discussed can take NSAIDs or use heating pad/ice packs for relief No signs of infection No concern for UTI or bowel cause of pain. Coding Level of Care Code Off vis,est,level 3 Diagnoses Left groin pain R10.32 08/05/20 1448 <Electronically signed by Aparna Allen MD> Date Aparna Allen MD Cosigner Signature: Date (if applicable) CC: Britta Curtis DO Work Phone: Start: 07-28-2020 End: 07-28-2020 Oxyhydrogen Welder Office Visit Report Procedure Note: See Note; NOTES: [facility] [address] [place] [address] OFFICE VISIT Date of Service: 07/28/20 MR#: [id number] Acct: [id number] Name: PRISCILA RICHARDSON Rep #: [id number] : 1985 Provider: RASTA avendaño Age/Sex: 35/F Location: [facility] Status: Signed Intake Vital Signs 07/28/20 Weight: 144 lb 07/28/20 BP 118/74 Intake Visit Reasons: 2WK INCISION CHECK Pleating Supervisor Required: No Accompanied by: self Is patient in pain?: No Allergies amoxicillin Adverse Reaction (Mild, Verified 07/28/20 09:49) Vomiting erythromycin base Adverse Reaction (Mild, Verified 07/28/20 09:49) Vomiting azithromycin Adverse Reaction (Verified 07/28/20 09:49) Vomiting Medications albuterol sulfate 90 mcg/actuation aerosol inhaler 1 puff INHALATION Q6H PRN 07/29/19 [History Confirmed 07/28/20] Docusate Sodium [Colace] 200 mg PO DAILY 07/15/20 [History Confirmed 07/28/20] Ferrous Sulfate 325 mg PO 07/15/20 [History Confirmed 07/28/20] Pnv No.103/Folic/Om3s/Fish Oil [ Gummies] 2 ea PO DAILY 07/15/20 [History Confirmed 07/28/20] Naproxen [Naprosyn] 250 - 500 mg PO Q8H PRN PRN #30 tab 07/16/20 [Rx Confirmed 07/28/20] acetaminophen 325 mg capsule 325 mg PO ONCE PRN 07/28/20 [History Confirmed 07/28/20] Is last menstrual period known: No Post menopausal: No Patient : No : Yes [facility] Surgical History Delivery by section (Acute) History of wisdom tooth extraction, class II edentulism (Acute) Family History Father auto immune disorder Social History (Updated 07/28/20 @ 10:00 by Ana Cristina Roe NP, AUTO SERVICE STATION ATTENDANT-C) Smoking Status: Never smoker alcohol intake: current details: pre- substance use type: does not use caffeine: Yes what type of physical activity do you participate in: walking frequency: 3-4 times per week seatbelt use: always do you feel safe at home: Yes additional social history: Stephen Su 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 She is doing well emotionally and physically. Baby doing well. Denies concerns Pregancy History 1 Elective abortions Hx Para 1 Spontaneous abortions Hx # Term Pregnancies 1 Ectopic pregnancies Hx # Pregnancies Multiple births # of living children 1 Past Pregnancies Del. Date Name GA/Weeks Outcome Route Bth Weight Infant Gen [facility]20 Meron 40 live - full term Female epidural [facility] Tiffany Delivery Date: 07/16/20 arrest of descent Mariana English Exam Const General: cooperative, no acute distress Nutritional Appearance: well nourished Orientation: oriented x3 GI Palpation: soft, nontender Percussion: other (Incision well healed, nonerythematous) Assessment Plan Problems 1. Postop check Z09 Plan Routine pp care RTO 4 weeks Coding Level of Care Code No Charge Diagnoses Postop check Z09 07/28/20 1000 <Electronically signed by Ana Cristina Jyothi AUTO SERVICE STATION ATTENDANT AUTO SERVICE STATION ATTENDANT-C> Date Ana Cristina Briggstings AUTO SERVICE STATION ATTENDANT AUTO SERVICE STATION ATTENDANT-C Cosigner Signature: Date (if applicable) CC: Britta Acevedo DO Work Phone: Start: 07-10-2020 End: 07-14-2020 OB Limited With Biometrics Comments: See Note; NOTES: [facility] Imaging Services [address] [place] [address] OB Limited With Biometrics MR#: [id number] Acct: [id number] Name: PRISCILA RICHARDSON Rep #: [id number] : 1985 F 35 From: Federica Wellington MD PCP: Dr. Britta Acevedo, DO Status: REG CLI Study: OB Limited With Biometrics Date of Exam: 07/10 Exam# [id number] Ordering Dr: Sonya Benoit STUDY: SECOND AND THIRD TRIMESTER OBSTETRICAL ULTRASOUND limited REASON FOR EXAM: Female, 35 years old GROWTH, AND RUSSELL LMP: 10/05/2019 TECHNIQUE: Transabdominal real-time exam with don scale image documentation. TECHNICAL QUALITY: Adequate. PRIOR ULTRASOUND: None. FINDINGS: There is a single intrauterine fetus. The fetus is in a cephalic presentation. There is demonstrated cardiac activity with a heart rate of 155 bpm. There is a normal amniotic fluid volume. The largest amniotic fluid pocket measures 4.5 x 6.0 cm. The amniotic fluid index (RUSSELL) is 11.5 cm. The placenta is anterior and not low lying. There are Grade 2 placental changes. The cervix is not visualized. The adnexal regions are not visualized. BIOMETRY: BPD: 8.79 cm: 35 weeks, 3 days HC: 32.8 cm: 37 weeks, 2 days AC: 36.2 cm: 40 weeks, 0 days FL: 7.57 cm: 38 weeks, 4 days CI: 78.2 FL/BPD: 86.1 FL/AC: 20.9 HC/AC: 0.91 age by current US: 37 weeks, 5 days. ALVAREZ by current US: 07/26/2020. Estimated weight: 3655 grams, +/- 548 grams, 55 %. Age by LMP: 39 weeks, 6 days. ALVAREZ by LMP: 07/11/2020. US/OB Limited With Biometrics IMPRESSION: Single living intrauterine fetus measuring 37 weeks and 5 days with an ALVAREZ of 07/26/2020. Amniotic fluid index of 11.5 cm. Grade 2, anterior and not low lying placenta. Estimated weight 3655 g +/- 548 g, 55 percentile. Electronically Signed: Federica Wellington MD at 16:52 EST , Service support , CC: Dr. Britta Acevedo DO; Dr. Sonya Benoit MD Plater Apprentice: Signed Britta Acevedo Start: 07-10-2020 End: 07-10-2020 Oxyhydrogen Welder Office Visit Report Comments: See Note; NOTES: [facility] [address] [place] [address]. [address] [place] [address] OFFICE VISIT Date of Service: 07/10/20 MR#: [id number] Acct: [id number] Name: PRISCILA RICHARDSON Rep #: [id number] : 1985 Provider: Dr. Sonya valentino MD Age/Sex: 35/F Location: [facility] Status: Signed Intake Vital Signs 07/10/20 Height 5 ft 5 in 07/10/20 Weight: 157 lb 07/10/20 BMI 26.1 07/10/20 BP 120/88 H Intake Visit Reasons: 39 WK OB Chief Complaint: est ob Pleating Supervisor Required: No Is patient in pain?: No Allergies amoxicillin Allergy (Mild, Verified 07/10/20 10:07) Vomiting erythromycin base Allergy (Mild, Verified 07/10/20 10:07) Vomiting Medications albuterol sulfate 90 mcg/actuation aerosol inhaler 1 puff INHALATION Q6H 07/29/19 [History Confirmed 07/10/20] montelukast 10 mg tablet 10 mg PO QPM 07/29/19 [History Confirmed 07/10/20] vitamin#30 30 mg iron-10 mg iron-folic acid 1 mg-omg3 capsule cap PO 12/16/19 [History Confirmed 07/10/20] promethazine 12.5 mg tablet 12.5 mg PO TID PRN #60 tab 12/16/19 [Rx Confirmed 07/10/20] ondansetron 4 mg disintegrating tablet 4 mg PO Q4H PRN #60 tab 01/17/20 [Rx Confirmed 07/10/20] meclizine 12.5 mg tablet 12.5 mg PO TID PRN #60 tab 02/10/20 [Rx Confirmed 07/10/20] Last Menstral Period: 10/11/19 Zika: Zika virus screening: Negative : No PFSH PFSH Surgical History History of wisdom tooth extraction, class II edentulism (Acute) Family History Father auto immune disorder Social History (Updated 07/10/20 @ 10:[address] 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 OB Visit ALVAREZ Calculator Estimated Delivery Date Method Current WG Current Estimate 07/11/20 Ultrasound #1 39w 6d Other Estimates 07/17/20 LMP (Certain) 39w 0d Expected Delivery Route/Plan Labor Preferences- CB/BF classes: may and april labor support person: trang labor intervention preferences: none pain management options preferred: open to anything. cut cord/dad catch: yes maybe : yes PP control planned: pill or nuvaring discussed possible routes of delivery and associated risks: discussed possible delivery modalities and possible indications for each including R/B/A of , VAVD, and CS. questions answered. special requests: [] Specific Issue/Plans flu vaccine: 04/24 tdap vaccine: 04/24 rhogam: 04/24 LARC form signed: declined movement and labor precautions reviewed. Problem list reviewed and updated with the most current plan of care details and appropriate orders placed. Relevant counseling for the gestational age provided. Continue routine care and follow up unless otherwise noted in visit notes/problem list details Initial Weight: 130 lb Date -???-???-???-???-???-???-??? -???-???-???-???-???- EGA Weight BP Urine Prot -???-???-???-???-???-???-??? -???-???-???-???-???- Glucose FHR FuHt Pres Dilation -???-???-???-???-???-???-??? -???-???-???-???-???- Effaced St Visit Note 01/17/20 -???-???-???-???-???-???-??? -???-???-???-???-???- 14w 6d 129 lb 6 oz (-10 oz) 120/78 Negative -???-???-???-???-???-???-??? -???-???-???-???-???- Negative 151 -???-???-???-???-???-???-??? -???-???-???-???-???- MH-No Vb, cr amping. Still struggling with N V:filemon Rx. 02/10/20 -???-???-???-???-???-???-??? -???-???-???-???-???- 18w 2d 132 lb 2 oz (+2 lb 2 oz) 120/70 Negative -???-???-???-???-???-???-??? -???-???-???-???-???- Negative 150 -???-???-???-???-???-???-??? -???-???-???-???-???- SM- no vb cr amping doing well overall 03/24/20 -???-???-???-???-???-???-??? -???-???-???-???-???- 24w 3d 140 lb 8 oz (+10 lb 8 oz) 118/78 Negative -???-???-???-???-???-???-??? -???-???-???-???-???- Negative 145 24 -???-???-???-???-???-???-??? -???-???-???-???-???- SM- no vb lo f good fm scheduled us 04/24/20 -???-???-???-???-???-???-??? -???-???-???-???-???- 28w 6d 147 lb 2 oz (+17 lb 2 oz) 126/68 Negative -???-???-???-???-???-???-??? -???-???-???-???-???- Negative 145 28 -???-???-???-???-???-???-??? -???-???-???-???-???- SM- no vb lo f good fm no regular ctx 05/06/20 -???-???-???-???-???-???-??? -???-???-???-???-???- 30w 4d 150 lb 4 oz (+20 lb 4 oz) 138/80 Negative -???-???-???-???-???-???-??? -???-???-???-???-???- Negative 140 30 -???-???-???-???-???-???-??? -???-???-???-???-???- GP - No lof, VB, dfm, ctx. Denies complaints. GP - No lof, VB, dfm, ctx. Denies complaints. CB classes this weekend. 05/22/20 -???-???-???-???-???-???-??? -???-???-???-???-???- 32w 6d 150 lb (+20 lb) 124/66 Negative -???-???-???-???-???-???-??? -???-???-???-???-???- Negative 135 32 -???-???-???-???-???-???-??? -???-???-???-???-???- SM- no vb lo f good fm no regular ctx discussed labor preferences. 06/05/20 -???-???-???-???-???-???-??? -???-???-???-???-???- 34w 6d 154 lb (+24 lb) 120/80 Negative -???-???-???-???-???-???-??? -???-???-???-???-???- Negative 130 34 -???-???-???-???-???-???-??? -???-???-???-???-???- GP - no LOF, VB, DFM, regular ctx. Considering Aparna vsNeetu Chance as names. 06/17/20 -???-???-???-???-???-???-??? -???-???-???-???-???- 36w 4d 158 lb (+28 lb) 104/84 Negative -???-???-???-???-???-???-??? -???-???-???-???-???- Negative 155 36 Cephalic 0 -???-???-???-???-???-???-??? -???-???-???-???-???- SM- no vb lo f good fm no regular ctx 06/26/20 -???-???-???-???-???-???-??? -???-???-???-???-???- 37w 6d 120/70 -???-???-???-???-???-???-??? -???-???-???-???-???- 140 37 Cephalic -???-???-???-???-???-???-??? -???-???-???-???-???- SM- covid ex chiquita mujica from her mother. recommend testing now and patient is quarantining. asymptomatic. no vb lof good fm, no regular ctx. 07/02/20 -???-???-???-???-???-???-??? -???-???-???-???-???- 38w 5d 157 lb 8 oz (+27 lb 8 oz) 110/80 Negative -???-???-???-???-???-???-??? -???-???-???-???-???- Negative 140 38 Cephalic 0 -???-???-???-???-???-???-??? -???-???-???-???-???- 40 -2 GP - no re gular ctx, LOF, VB, DFM. Cx remains closed. Discussed induction at 41 weeks unless spontaneous labor. 07/10/20 -???-???-???-???-???-???-??? -???-???-???-???-???- 39w 6d 157 lb (+27 lb) 120/88 Negative -???-???-???-???-???-???-??? -???-???-???-???-???- Negative 140 37 Cephalic 0 -???-???-???-???-???-???-??? -???-???-???-???-???- SM- no vb lo f good fm no regular ctx discussed IOL 41 weeks. russell 8 cm, consider repeat RUSSELL next week ACOG First Trimester First Trimester: Desire for , Alcohol, Tobacco Cessation, Illicit/Recreational Drug/Substance Use, Intimate Partner Violence, Barriers to care, Unstable Housing, Communication Barriers, Environmental/Work Hazards, Anticipated Course of Care, Toxoplasmosis Precations, Use of Any medications, Sexual activity, Exercise, Dental Care, Sauna/Hot tub use, Seat Belt use, Childbirth classes/Hospital facilities, , Travel, Indications for US and Screening for Aneuploidy Diagnostics Diagnostics Diagnostics Blood Type AB NEGATIVE 04/24/20 Antibody Screen NEGATIVE 04/24/20 Glucose 1 Hr 50 gm 115 mg/dL (70-140) 04/24/20 Hgb 12.2 g/dL (12.0-15.0) 04/24/20 Hct 35.7 % (37-47) L 04/24/20 Details: HIV: Urine Culture: Sequential Screen: NIPT Screen: ROS Const Reports system reviewed and no additional complaints, except as docu Card Reports system reviewed and no additional complaints, except as docu Resp Reports system reviewed and no additional complaints, except as docu GI Reports system reviewed and no additional complaints, except as docu, Reports nausea Reports system reviewed and no additional complaints, except as docu Musc Reports system reviewed and no additional complaints, except as docu Exam Const General: cooperative, healthy appearing, comfortable, anxious HENIA Head: normal to inspection Nose: external nose normal Face and sinus: normal facial exam Neck Neck: normal visual inspection, full ROM, no lymphadenopathy Thyroid: thyroid normal Chest Chest palpation inspection: normal inspection of the chest Resp Effort Inspection: normal respiratory effort GI Inspection: normal to inspection Palpation: soft, other (gravid uterus) Other: infant vertex and appropriate size for gestational age Other: Cervical Exam: Extrem General: pedal edema Results POC Urinalysis 2 Dip (Clinic) Office Urine Glucose Negative Last Edit by Julia Perdomo on 07/10/20 10:13 Office Urine Protein Negative Last Edit by Julia Perdomo on 07/10/20 10:13 Assessment Plan Problems 1. Z34.90 declined genetic, carrier and NTD. anatomy reviewed. 2. Supervision of normal first Z34.00 PRR ALVAREZ 07/11/2020 Girl Spouse: Trang 3. Asthma J45.909 singular, ProAir stable controlled by PCP 4. Rh negative status during O26.899; Z67.91 rhogam at 28 weeks and PRN 5. Influenza vaccine administered Z23 [id number] 6. 35 weeks gestation of Z3A.35 electronic covid test ordered 06/10/2020sc (scheduled 07/02/20 at 4:30) 7. Positive GBS test B95.1 ancef in labor 8. Exposure to COVID-19 virus Z20.828 testing 06/26- negative. counseled regarding quarantine Orders Orders: POC Urinalysis 2 Dip (Clinic) Today OB Limited With Biometrics Today O26.849 Coding Level of Care Code OB Routine Diagnoses Z34.90 Supervision of normal first Z34.00 Asthma J45.909 Rh negative status during O26.899; Z67.91 Influenza vaccine administered Z23 35 weeks gestation of Z3A.35 Positive GBS test B95.1 Exposure to COVID-19 virus Z20.828 07/10/20 1031 <Electronically signed by Sonya Benoit MD> Date Sonya Benoit MD Cosign Signature: Date (if applicable) CC: Britta Acevedo Start: 07-02-2020 End: 07-02-2020 Oxyhydrogen Welder Office Visit Report Comments: See Note; NOTES: [facility] [address] [place] [address]. [address] [place] [address] OFFICE VISIT Date of Service: 07/02/20 MR#: [id number] Acct: [id number] Name: PRISCILA RICHARDSON Rep #: [id number] : 1985 Provider: Dr. Aparna eller MD Age/Sex: 35/F Location[place] [facility] [place] Status: Signed Intake Vital Signs 07/02/20 Height 5 ft 5 in 07/02/20 Weight: 157 lb 8 oz 07/02/20 BP 110/80 Intake Visit Reasons: 38 WK OB Pleating Supervisor Required: No Is patient in pain?: No Allergies amoxicillin Allergy (Mild, Verified 07/02/20 13:58) Vomiting erythromycin base Allergy (Mild, Verified 07/02/20 13:58) Vomiting Medications albuterol sulfate 90 mcg/actuation aerosol inhaler 1 puff INHALATION Q6H 07/29/19 [History Confirmed 07/02/20] montelukast 10 mg tablet 10 mg PO QPM 07/29/19 [History Confirmed 07/02/20] vitamin#30 30 mg iron-10 mg iron-folic acid 1 mg-omg3 capsule cap PO 12/16/19 [History Confirmed 07/02/20] promethazine 12.5 mg tablet 12.5 mg PO TID PRN #60 tab 12/16/19 [Rx Confirmed 07/02/20] ondansetron 4 mg disintegrating tablet 4 mg PO Q4H PRN #60 tab 01/17/20 [Rx Confirmed 07/02/20] meclizine 12.5 mg tablet 12.5 mg PO TID PRN #60 tab 02/10/20 [Rx Confirmed 07/02/20] Last Menstral Period: 10/11/19 Zika: Zika virus screening: Negative : No PFSH PFSH Surgical History History of wisdom tooth extraction, class II edentulism (Acute) Family History Father auto immune disorder Social History (Updated 07/02/20 @ 20:[address] 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 OB Visit ALVAREZ Calculator Estimated Delivery Date Method Current WG Current Estimate 07/11/20 Ultrasound #1 38w 5d Other Estimates 07/17/20 LMP (Certain) 37w 6d Expected Delivery Route/Plan Labor Preferences- CB/BF classes: may and april labor support person: trang labor intervention preferences: none pain management options preferred: open to anything. cut cord/dad catch: yes maybe : yes PP control planned: pill or nuvaring discussed possible routes of delivery and associated risks: discussed possible delivery modalities and possible indications for each including R/B/A of , VAVD, and CS. questions answered. special requests: [] Specific Issue/Plans flu vaccine: 04/24 tdap vaccine: 04/24 rhogam: 04/24 LARC form signed: declined movement and labor precautions reviewed. Problem list reviewed and updated with the most current plan of care details and appropriate orders placed. Relevant counseling for the gestational age provided. Continue routine care and follow up unless otherwise noted in visit notes/problem list details Initial Weight: 130 lb Date -???-???-???-???-???-???-??? -???-???-???-???-???- EGA Weight BP Urine Prot -???-???-???-???-???-???-??? -???-???-???-???-???- Glucose FHR FuHt Pres Dilation -???-???-???-???-???-???-??? -???-???-???-???-???- Effaced St Visit Note 01/17/20 -???-???-???-???-???-???-??? -???-???-???-???-???- 14w 6d 129 lb 6 oz (-10 oz) 120/78 Negative -???-???-???-???-???-???-??? -???-???-???-???-???- Negative 151 -???-???-???-???-???-???-??? -???-???-???-???-???- MH-No Vb, cr amping. Still struggling with N V:filemon Rx. 02/10/20 -???-???-???-???-???-???-??? -???-???-???-???-???- 18w 2d 132 lb 2 oz (+2 lb 2 oz) 120/70 Negative -???-???-???-???-???-???-??? -???-???-???-???-???- Negative 150 -???-???-???-???-???-???-??? -???-???-???-???-???- SM- no vb cr amping doing well overall 03/24/20 -???-???-???-???-???-???-??? -???-???-???-???-???- 24w 3d 140 lb 8 oz (+10 lb 8 oz) 118/78 Negative -???-???-???-???-???-???-??? -???-???-???-???-???- Negative 145 24 -???-???-???-???-???-???-??? -???-???-???-???-???- SM- no vb lo f good fm scheduled us 04/24/20 -???-???-???-???-???-???-??? -???-???-???-???-???- 28w 6d 147 lb 2 oz (+17 lb 2 oz) 126/68 Negative -???-???-???-???-???-???-??? -???-???-???-???-???- Negative 145 28 -???-???-???-???-???-???-??? -???-???-???-???-???- SM- no vb lo f good fm no regular ctx 05/06/20 -???-???-???-???-???-???-??? -???-???-???-???-???- 30w 4d 150 lb 4 oz (+20 lb 4 oz) 138/80 Negative -???-???-???-???-???-???-??? -???-???-???-???-???- Negative 140 30 -???-???-???-???-???-???-??? -???-???-???-???-???- GP - No lof, VB, dfm, ctx. Denies complaints. GP - No lof, VB, dfm, ctx. Denies complaints. CB classes this weekend. 05/22/20 -???-???-???-???-???-???-??? -???-???-???-???-???- 32w 6d 150 lb (+20 lb) 124/66 Negative -???-???-???-???-???-???-??? -???-???-???-???-???- Negative 135 32 -???-???-???-???-???-???-??? -???-???-???-???-???- SM- no vb lo f good fm no regular ctx discussed labor preferences. 06/05/20 -???-???-???-???-???-???-??? -???-???-???-???-???- 34w 6d 154 lb (+24 lb) 120/80 Negative -???-???-???-???-???-???-??? -???-???-???-???-???- Negative 130 34 -???-???-???-???-???-???-??? -???-???-???-???-???- GP - no LOF, VB, DFM, regular ctx. Considering Aparna vsNeetu Chance as names. 06/17/20 -???-???-???-???-???-???-??? -???-???-???-???-???- 36w 4d 158 lb (+28 lb) 104/84 Negative -???-???-???-???-???-???-??? -???-???-???-???-???- Negative 155 36 Cephalic 0 -???-???-???-???-???-???-??? -???-???-???-???-???- SM- no vb lo f good fm no regular ctx 06/26/20 -???-???-???-???-???-???-??? -???-???-???-???-???- 37w 6d 120/70 -???-???-???-???-???-???-??? -???-???-???-???-???- 140 37 Cephalic -???-???-???-???-???-???-??? -???-???-???-???-???- SM- covid ex posure guanako from her mother. recommend testing now and patient is quarantining. asymptomatic. no vb lof good fm, no regular ctx. 07/02/20 -???-???-???-???-???-???-??? -???-???-???-???-???- 38w 5d 157 lb 8 oz (+27 lb 8 oz) 110/80 Negative -???-???-???-???-???-???-??? -???-???-???-???-???- Negative 140 38 Cephalic 0 -???-???-???-???-???-???-??? -???-???-???-???-???- 40 -2 GP - no re gular ctx, LOF, VB, DFM. Cx remains closed. Discussed induction at 41 weeks unless spontaneous labor. ACOG First Trimester First Trimester: Desire for , Alcohol, Tobacco Cessation, Illicit/Recreational Drug/Substance Use, Intimate Partner Violence, Barriers to care, Unstable Housing, Communication Barriers, Environmental/Work Hazards, Anticipated Course of Care, Toxoplasmosis Precations, Use of Any medications, Sexual activity, Exercise, Dental Care, Sauna/Hot tub use, Seat Belt use, Childbirth classes/Hospital facilities, , Travel, Indications for US and Screening for Aneuploidy Diagnostics Diagnostics Diagnostics Blood Type AB NEGATIVE 04/24/20 Antibody Screen NEGATIVE 04/24/20 Glucose 1 Hr 50 gm 115 mg/dL (70-140) 04/24/20 HIV 1 2 Antibody Non-Reactive (Nonreactive) 12/16/19 Rubella IgG Antibody 209.7 IU/mL 12/16/19 Hgb 12.2 g/dL (12.0-15.0) 04/24/20 Hct 35.7 % (37-47) L 04/24/20 RPR NONREACTIVE (NONREACTIVE) 12/16/19 Details: HIV: Urine Culture: Sequential Screen: NIPT Screen: ROS Denies abnormal vaginal bleeding, Denies painful urination, Denies nipple discharge, Denies pelvic pain, Denies vaginal discharge, Denies vaginal odor, Denies vaginal itching Skin/Breast Denies nipple discharge Exam Const General: cooperative, healthy appearing, comfortable, no acute distress, well developed, well groomed Nutritional Appearance: average body habitus, well nourished Orientation: alert, awake, oriented x3 HENMT Head: normal to inspection, normocephalic, atraumatic Eyes Pupils: PERRL, accommodation normal Resp Effort Inspection: normal respiratory effort, able to speak in complete sentences, symmetric chest movement Cardio Rate: regular rate GI Palpation: soft, no guarding, no masses, nontender Skin General: no rashes or lesions noted, elasticity normal, turgor normal Neuro General: alert, awake, oriented x3 Cranial Nerves: CN's II-XI intact bilaterally, sense of smell intact, PERRL, accommodation normal, EOM intact bilaterally Speech: speech normal Gait: normal gait Psych Appearance: grossly normal, well kempt Mental Status: mental status grossly normal Mood: congruent mood Affect: normal affect Speech and Movement: speech and movement normal Attitude: cooperative Thought Process: normal Thought Content: normal Judgment: judgment good Results POC Urinalysis 2 Dip (Clinic) Office Urine Glucose Negative Last Edit by Brittany Murphy on 07/02/20 15:40 Office Urine Protein Negative Last Edit by Brittany Murphy on 07/02/20 15:40 Assessment Plan Problems 1. Exposure to COVID-19 virus Z20.828 testing 06/26- negative. counseled regarding quarantine 2. Positive GBS test B95.1 ancef in labor 3. 35 weeks gestation of Z3A.35 electronic covid test ordered 06/10/2020sc (scheduled 07/02/20 at 4:30) 4. Influenza vaccine administered Z23 [id number] 5. Rh negative status during O26.899; Z67.91 rhogam at 28 weeks and PRN 6. Asthma J45.909 singular, ProAir stable controlled by PCP 7. Supervision of normal first Z34.00 PRR ALVAREZ 07/11/2020 Girl Spouse: Trang 8. 38 weeks gestation of Z3A.38 declined genetic, carrier and NTD. anatomy reviewed. Orders Orders: POC Urinalysis 2 Dip (Clinic) Today Coding Level of Care Code OB Routine Diagnoses Exposure to COVID-19 virus Z20.828 Positive GBS test B95.1 35 weeks gestation of Z3A.35 Influenza vaccine administered Z23 Rh negative status during O26.899; Z67.91 Asthma J45.909 Supervision of normal first Z34.00 38 weeks gestation of Z3A.38 ?Weeks of gestation: 38 weeks 07/02/202036 <Electronically signed by Aparna Allen MD> Date Aparna Allen MD Cosigner Signature: Date (if applicable) CC: Britta Acevedo Start: 06-26-2020 End: 06-26-2020 [employer]der Office Visit Report Comments: See Note; NOTES: [facility] [address] [place] [address] OFFICE VISIT Date of Service: 06/26/20 MR#: [id number] Acct: [id number] Name: PRISCILA RICHARDSON Rep #: [id number] : 1985 Provider: Dr. Sonya valentino MD Age/Sex: 35/F Location: [facility] [place] Status: Signed Intake Vital Signs 06/26/20 Height 5 ft 5 in 06/26/20 BP 120/70 Intake Visit Reasons: 37 WK OB Pleating Supervisor Required: No Is patient in pain?: No Allergies amoxicillin Allergy (Mild, Verified 06/26/20 15:37) Vomiting erythromycin base Allergy (Mild, Verified 06/26/20 15:37) Vomiting Medications albuterol sulfate 90 mcg/actuation aerosol inhaler 1 puff INHALATION Q6H 07/29/19 [History Confirmed 06/26/20] montelukast 10 mg tablet 10 mg PO QPM 07/29/19 [History Confirmed 06/26/20] vitamin#30 30 mg iron-10 mg iron-folic acid 1 mg-omg3 capsule cap PO 12/16/19 [History Confirmed 06/26/20] promethazine 12.5 mg tablet 12.5 mg PO TID PRN #60 tab 12/16/19 [Rx Confirmed 06/26/20] ondansetron 4 mg disintegrating tablet 4 mg PO Q4H PRN #60 tab 01/17/20 [Rx Confirmed 06/26/20] meclizine 12.5 mg tablet 12.5 mg PO TID PRN #60 tab 02/10/20 [Rx Confirmed 06/26/20] Last Menstral Period: 10/11/19 Zika: Zika virus screening: Negative : No PFSH PFSH Surgical History History of wisdom tooth extraction, class II edentulism (Acute) Family History Father auto immune disorder Social History (Updated 06/26/20 @ 15:[address] 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 OB Visit ALVAREZ Calculator Estimated Delivery Date Method Current WG Current Estimate 07/11/20 Ultrasound #1 37w 6d Other Estimates 07/17/20 LMP (Certain) 37w 0d Expected Delivery Route/Plan Labor Preferences- CB/BF classes: may and april labor support person: trang labor intervention preferences: none pain management options preferred: open to anything. cut cord/dad catch: yes maybe : yes PP control planned: pill or nuvaring discussed possible routes of delivery and associated risks: discussed possible delivery modalities and possible indications for each including R/B/A of , VAVD, and CS. questions answered. special requests: [] Specific Issue/Plans flu vaccine: 04/24 tdap vaccine: 04/24 rhogam: 04/24 LARC form signed: declined movement and labor precautions reviewed. Problem list reviewed and updated with the most current plan of care details and appropriate orders placed. Relevant counseling for the gestational age provided. Continue routine care and follow up unless otherwise noted in visit notes/problem list details Initial Weight: 130 lb Date -???-???-???-???-???-???-??? -???-???-???-???-???- EGA Weight BP Urine Prot -???-???-???-???-???-???-??? -???-???-???-???-???- Glucose FHR FuHt Pres Dilation -???-???-???-???-???-???-??? -???-???-???-???-???- Effaced St Visit Note 01/17/20 -???-???-???-???-???-???-??? -???-???-???-???-???- 14w 6d 129 lb 6 oz (-10 oz) 120/78 Negative -???-???-???-???-???-???-??? -???-???-???-???-???- Negative 151 -???-???-???-???-???-???-??? -???-???-???-???-???- -No Vb, cr amping. Still struggling with N V:filemon Rx. 02/10/20 -???-???-???-???-???-???-??? -???-???-???-???-???- 18w 2d 132 lb 2 oz (+2 lb 2 oz) 120/70 Negative -???-???-???-???-???-???-??? -???-???-???-???-???- Negative 150 -???-???-???-???-???-???-??? -???-???-???-???-???- SM- no vb cr amping doing well overall 03/24/20 -???-???-???-???-???-???-??? -???-???-???-???-???- 24w 3d 140 lb 8 oz (+10 lb 8 oz) 118/78 Negative -???-???-???-???-???-???-??? -???-???-???-???-???- Negative 145 24 -???-???-???-???-???-???-??? -???-???-???-???-???- SM- no vb lo f good fm scheduled us 04/24/20 -???-???-???-???-???-???-??? -???-???-???-???-???- 28w 6d 147 lb 2 oz (+17 lb 2 oz) 126/68 Negative -???-???-???-???-???-???-??? -???-???-???-???-???- Negative 145 28 -???-???-???-???-???-???-??? -???-???-???-???-???- SM- no vb lo f good fm no regular ctx 05/06/20 -???-???-???-???-???-???-??? -???-???-???-???-???- 30w 4d 150 lb 4 oz (+20 lb 4 oz) 138/80 Negative -???-???-???-???-???-???-??? -???-???-???-???-???- Negative 140 30 -???-???-???-???-???-???-??? -???-???-???-???-???- GP - No lof, VB, dfm, ctx. Denies complaints. GP - No lof, VB, dfm, ctx. Denies complaints. CB classes this weekend. 05/22/20 -???-???-???-???-???-???-??? -???-???-???-???-???- 32w 6d 150 lb (+20 lb) 124/66 Negative -???-???-???-???-???-???-??? -???-???-???-???-???- Negative 135 32 -???-???-???-???-???-???-??? -???-???-???-???-???- SM- no vb lo f good fm no regular ctx discussed labor preferences. 06/05/20 -???-???-???-???-???-???-??? -???-???-???-???-???- 34w 6d 154 lb (+24 lb) 120/80 Negative -???-???-???-???-???-???-??? -???-???-???-???-???- Negative 130 34 -???-???-???-???-???-???-??? -???-???-???-???-???- GP - no LOF, VB, DFM, regular ctx. Considering Aparna vs. Meron as names. 06/17/20 -???-???-???-???-???-???-??? -???-???-???-???-???- 36w 4d 158 lb (+28 lb) 104/84 Negative -???-???-???-???-???-???-??? -???-???-???-???-???- Negative 155 36 Cephalic 0 -???-???-???-???-???-???-??? -???-???-???-???-???- SM- no vb lo f good fm no regular ctx 06/26/20 -???-???-???-???-???-???-??? -???-???-???-???-???- 37w 6d 120/70 -???-???-???-???-???-???-??? -???-???-???-???-???- 140 37 Cephalic -???-???-???-???-???-???-??? -???-???-???-???-???- SM- covid ex posure monday from her mother. recommend testing now and patient is quarantining. asymptomatic. no vb lof good fm, no regular ctx. ACOG First Trimester First Trimester: Desire for , Alcohol, Tobacco Cessation, Illicit/Recreational Drug/Substance Use, Intimate Partner Violence, Barriers to care, Unstable Housing, Communication Barriers, Environmental/Work Hazards, Anticipated Course of Care, Toxoplasmosis Precations, Use of Any medications, Sexual activity, Exercise, Dental Care, Sauna/Hot tub use, Seat Belt use, Childbirth classes/Hospital facilities, , Travel, Indications for US and Screening for Aneuploidy Diagnostics Diagnostics Diagnostics Blood Type AB NEGATIVE 04/24/20 Antibody Screen NEGATIVE 04/24/20 Glucose 1 Hr 50 gm 115 mg/dL (70-140) 04/24/20 HIV 1 2 Antibody Non-Reactive (Nonreactive) 12/16/19 Rubella IgG Antibody 209.7 IU/mL 12/16/19 Hgb 12.2 g/dL (12.0-15.0) 04/24/20 Hct 35.7 % (37-47) L 04/24/20 RPR NONREACTIVE (NONREACTIVE) 12/16/19 Details: HIV: Urine Culture: Sequential Screen: NIPT Screen: Assessment Plan Problems 1. Z34.90 declined genetic, carrier and NTD. anatomy reviewed. 2. Supervision of normal first Z34.00 PRR ALVAREZ 07/11/2020 Girl Spouse: Trang 3. Asthma J45.909 singular, ProAir stable controlled by PCP 4. Rh negative status during O26.899; Z67.91 rhogam at 28 weeks and PRN 5. Influenza vaccine administered Z23 6. 35 weeks gestation of Z3A.35 electronic covid test ordered 06/10/2020sc (scheduled 07/02/20 at 4:30) 7. Positive GBS test B95.1 ancef in labor 8. Exposure to COVID-19 virus Z20.828 testing ordered 06/26. counseled regarding quarantine Coding Level of Care Code OB Routine Diagnoses Z34.90 Supervision of normal first Z34.00 Asthma J45.909 Rh negative status during O26.899; Z67.91 Influenza vaccine administered Z23 35 weeks gestation of Z3A.35 Positive GBS test B95.1 Exposure to COVID-19 virus Z20.828 06/26/20 4537 <Electronically signed by Sonya Benoit MD> Date Sonya Benoit MD Cosigner Signature: Date (if applicable) CC: Britta Acevedo Start: 06-17-2020 End: 06-17-2020 Oxyhydrogen Welder Office Visit Report Comments: See Note; NOTES: [facility] [address] [place] [address] OFFICE VISIT Date of Service: 06/17/20 MR#: [id number] Acct: [id number] Name: PRISCILA RICHARDSON Rep #: [id number] : 1985 Provider: Dr. Sonya valentino MD Age/Sex: 35/F Location: [facility] [place] Status: Signed Intake Vital Signs 06/17/20 Height 5 ft 5 in 06/17/20 Weight: 158 lb 06/17/20 BMI 26.2 06/17/20 BP 104/84 H Intake Visit Reasons: 36 WK OB Chief Complaint: est ob Pleating Supervisor Required: No Is patient in pain?: No Allergies amoxicillin Allergy (Mild, Verified 06/17/20 15:10) Vomiting erythromycin base Allergy (Mild, Verified 06/17/20 15:10) Vomiting Medications albuterol sulfate 90 mcg/actuation aerosol inhaler 1 puff INHALATION Q6H 07/29/19 [History Confirmed 06/17/20] montelukast 10 mg tablet 10 mg PO QPM 07/29/19 [History Confirmed 06/17/20] vitamin#30 30 mg iron-10 mg iron-folic acid 1 mg-omg3 capsule cap PO 12/16/19 [History Confirmed 06/17/20] promethazine 12.5 mg tablet 12.5 mg PO TID PRN #60 tab 12/16/19 [Rx Confirmed 06/17/20] ondansetron 4 mg disintegrating tablet 4 mg PO Q4H PRN #60 tab 01/17/20 [Rx Confirmed 06/17/20] meclizine 12.5 mg tablet 12.5 mg PO TID PRN #60 tab 02/10/20 [Rx Confirmed 06/17/20] Last Menstral Period: 10/11/19 Zika: Zika virus screening: Negative : No PFSH PFSH Surgical History History of wisdom tooth extraction, class II edentulism (Acute) Family History Father auto immune disorder Social History (Updated 06/17/20 @ 15:[address] 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 OB Visit ALVAREZ Calculator Estimated Delivery Date Method Current WG Current Estimate 07/11/20 Ultrasound #1 36w 4d Other Estimates 07/17/20 LMP (Certain) 35w 5d Expected Delivery Route/Plan Labor Preferences- CB/BF classes: may and april labor support person: trang labor intervention preferences: none pain management options preferred: open to anything. cut cord/dad catch: yes maybe : yes PP control planned: pill or nuvaring discussed possible routes of delivery and associated risks: discussed possible delivery modalities and possible indications for each including R/B/A of , VAVD, and CS. questions answered. special requests: [] Specific Issue/Plans flu vaccine: 04/24 tdap vaccine: 04/24 rhogam: 9/11 LARC form signed: declined movement and labor precautions reviewed. Problem list reviewed and updated with the most current plan of care details and appropriate orders placed. Relevant counseling for the gestational age provided. Continue routine care and follow up unless otherwise noted in visit notes/problem list details Initial Weight: 130 lb Date -???-???-???-???-???-???-??? -???-???-???-???-???- EGA Weight BP Urine Prot -???-???-???-???-???-???-??? -???-???-???-???-???- Glucose FHR FuHt Pres Dilation -???-???-???-???-???-???-??? -???-???-???-???-???- Effaced St Visit Note 01/17/20 -???-???-???-???-???-???-??? -???-???-???-???-???- 14w 6d 129 lb 6 oz (-10 oz) 120/78 Negative -???-???-???-???-???-???-??? -???-???-???-???-???- Negative 151 -???-???-???-???-???-???-??? -???-???-???-???-???- -No sharyn Aguilar. Still struggling with N V:filemon Rx. 02/10/20 -???-???-???-???-???-???-??? -???-???-???-???-???- 18w 2d 132 lb 2 oz (+2 lb 2 oz) 120/70 Negative -???-???-???-???-???-???-??? -???-???-???-???-???- Negative 150 -???-???-???-???-???-???-??? -???-???-???-???-???- SM- no vb cr amping doing well overall 03/24/20 -???-???-???-???-???-???-??? -???-???-???-???-???- 24w 3d 140 lb 8 oz (+10 lb 8 oz) 118/78 Negative -???-???-???-???-???-???-??? -???-???-???-???-???- Negative 145 24 -???-???-???-???-???-???-??? -???-???-???-???-???- SM- no vb lo f good fm scheduled us 04/24/20 -???-???-???-???-???-???-??? -???-???-???-???-???- 28w 6d 147 lb 2 oz (+17 lb 2 oz) 126/68 Negative -???-???-???-???-???-???-??? -???-???-???-???-???- Negative 145 28 -???-???-???-???-???-???-??? -???-???-???-???-???- SM- no vb lo f good fm no regular ctx 05/06/20 -???-???-???-???-???-???-??? -???-???-???-???-???- 30w 4d 150 lb 4 oz (+20 lb 4 oz) 138/80 Negative -???-???-???-???-???-???-??? -???-???-???-???-???- Negative 140 30 -???-???-???-???-???-???-??? -???-???-???-???-???- GP - No lof, VB, dfm, ctx. Denies complaints. GP - No lof, VB, dfm, ctx. Denies complaints. CB classes this weekend. 05/22/20 -???-???-???-???-???-???-??? -???-???-???-???-???- 32w 6d 150 lb (+20 lb) 124/66 Negative -???-???-???-???-???-???-??? -???-???-???-???-???- Negative 135 32 -???-???-???-???-???-???-??? -???-???-???-???-???- SM- no vb lo f good fm no regular ctx discussed labor preferences. 06/05/20 -???-???-???-???-???-???-??? -???-???-???-???-???- 34w 6d 154 lb (+24 lb) 120/80 Negative -???-???-???-???-???-???-??? -???-???-???-???-???- Negative 130 34 -???-???-???-???-???-???-??? -???-???-???-???-???- GP - no LOF, VB, DFM, regular ctx. Considering Aparna vs. Meron as names. 06/17/20 -???-???-???-???-???-???-??? -???-???-???-???-???- 36w 4d 158 lb (+28 lb) 104/84 Negative -???-???-???-???-???-???-??? -???-???-???-???-???- Negative 155 36 Cephalic 0 -???-???-???-???-???-???-??? -???-???-???-???-???- SM- no vb lo f good fm no regular ctx ACOG First Trimester First Trimester: Desire for , Alcohol, Tobacco Cessation, Illicit/Recreational Drug/Substance Use, Intimate Partner Violence, Barriers to care, Unstable Housing, Communication Barriers, Environmental/Work Hazards, Anticipated Course of Care, Toxoplasmosis Precations, Use of Any medications, Sexual activity, Exercise, Dental Care, Sauna/Hot tub use, Seat Belt use, Childbirth classes/Hospital facilities, , Travel, Indications for US and Screening for Aneuploidy Diagnostics Diagnostics Diagnostics Blood Type AB NEGATIVE 04/24/20 Antibody Screen NEGATIVE 04/24/20 Glucose 1 Hr 50 gm 115 mg/dL (70-140) 04/24/20 HIV 1 2 Antibody Non-Reactive (Nonreactive) 12/16/19 Rubella IgG Antibody 209.7 IU/mL 12/16/19 Hgb 12.2 g/dL (12.0-15.0) 04/24/20 Hct 35.7 % (37-47) L 04/24/20 RPR NONREACTIVE (NONREACTIVE) 12/16/19 Details: HIV: Urine Culture: Sequential Screen: NIPT Screen: Results POC Urinalysis 2 Dip (Clinic) Office Urine Glucose Negative Last Edit by Julia Perdomo on 06/17/20 15:16 Office Urine Protein Negative Last Edit by Julia Perdomo on 06/17/20 15:16 Assessment Plan Problems 1. Z34.90 declined genetic, carrier and NTD. anatomy reviewed. 2. Supervision of normal first Z34.00 PRR ALVAREZ 07/11/2020 Girl Spouse: Trang 3. Asthma J45.909 singular, ProAir stable controlled by PCP 4. Rh negative status during O26.899; Z67.91 rhogam at 28 weeks and PRN 5. Influenza vaccine administered Z23 [id number] 6. 35 weeks gestation of Z3A.35 electronic covid test ordered 06/10/2020sc (scheduled 07/02/20 at 4:30) Orders Orders: POC Urinalysis 2 Dip (Clinic) Today COVID 19, SOFIA SENDOUT 06/10/20 Culture, Group B Streptococcus Today Z34.90 Coding Level of Care Code OB Routine Diagnoses Z34.90 Supervision of normal first Z34.00 Asthma J45.909 Rh negative status during O26.899; Z67.91 Influenza vaccine administered Z23 35 weeks gestation of Z3A.35 06/17/20 1525 <Electronically signed by Sonya Benoit MD> Date Sonya Benoit MD Cosign Signature: Date (if applicable) CC: Britta Acevedo Start: 06-05-2020 End: 06-05-2020 Oxyhydrogen Welder Office Visit Report Comments: See Note; NOTES: [facility] [address] [place] [address] OFFICE VISIT Date of Service: 06/05/20 MR#: [id number] Acct: [id number] Name: PRISCILA RICHARDSON Rep #: [id number] : 1985 Provider: Dr. Aparna eller MD Age/Sex: 35/F Location: [facility] [place] Status: Signed Intake Vital Signs 06/05/20 Height 5 ft 5 in 06/05/20 Weight: 154 lb 06/05/20 BP 120/80 Intake Visit Reasons: 34 WK OB Pleating Supervisor Required: No Is patient in pain?: No Allergies amoxicillin Allergy (Mild, Verified 06/05/20 14:52) Vomiting erythromycin base Allergy (Mild, Verified 06/05/20 14:52) Vomiting Medications albuterol sulfate 90 mcg/actuation aerosol inhaler 1 puff INHALATION Q6H 07/29/19 [History Confirmed 06/05/20] montelukast 10 mg tablet 10 mg PO QPM 07/29/19 [History Confirmed 06/05/20] vitamin#30 30 mg iron-10 mg iron-folic acid 1 mg-omg3 capsule cap PO 12/16/19 [History Confirmed 06/05/20] promethazine 12.5 mg tablet 12.5 mg PO TID PRN #60 tab 12/16/19 [Rx Confirmed 06/05/20] ondansetron 4 mg disintegrating tablet 4 mg PO Q4H PRN #60 tab 01/17/20 [Rx Confirmed 06/05/20] meclizine 12.5 mg tablet 12.5 mg PO TID PRN #60 tab 02/10/20 [Rx Confirmed 06/05/20] Last Menstral Period: 10/11/19 : No PFSH PFSH Surgical History History of wisdom tooth extraction, class II edentulism (Acute) Family History Father auto immune disorder Social History (Updated 06/05/20 @ 15:[address] 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 OB Visit ALVAREZ Calculator Estimated Delivery Date Method Current WG Current Estimate 07/11/20 Ultrasound #1 34w 6d Other Estimates 07/17/20 LMP (Certain) 34w 0d Expected Delivery Route/Plan Labor Preferences- CB/BF classes: may and april labor support person: trang labor intervention preferences: none pain management options preferred: open to anything. cut cord/dad catch: yes maybe : yes PP control planned: pill or nuvaring discussed possible routes of delivery and associated risks: discussed possible delivery modalities and possible indications for each including R/B/A of , VAVD, and CS. questions answered. special requests: [] Specific Issue/Plans flu vaccine: 04/24 tdap vaccine: 04/24 rhogam: 04/24 LARC form signed: declined movement and labor precautions reviewed. Problem list reviewed and updated with the most current plan of care details and appropriate orders placed. Relevant counseling for the gestational age provided. Continue routine care and follow up unless otherwise noted in visit notes/problem list details Initial Weight: 130 lb Date -???-???-???-???-???-???-??? -???-???-???-???-???- EGA Weight BP Urine Prot -???-???-???-???-???-???-??? -???-???-???-???-???- Glucose FHR FuHt Pres Dilation -???-???-???-???-???-???-??? -???-???-???-???-???- Effaced St Visit Note 01/17/20 -???-???-???-???-???-???-??? -???-???-???-???-???- 14w 6d 129 lb 6 oz (-10 oz) 120/78 Negative -???-???-???-???-???-???-??? -???-???-???-???-???- Negative 151 -???-???-???-???-???-???-??? -???-???-???-???-???- -No Vb, cr amping. Still struggling with N V:filemon Rx. 02/10/20 -???-???-???-???-???-???-??? -???-???-???-???-???- 18w 2d 132 lb 2 oz (+2 lb 2 oz) 120/70 Negative -???-???-???-???-???-???-??? -???-???-???-???-???- Negative 150 -???-???-???-???-???-???-??? -???-???-???-???-???- SM- no vb cr amping doing well overall 03/24/20 -???-???-???-???-???-???-??? -???-???-???-???-???- 24w 3d 140 lb 8 oz (+10 lb 8 oz) 118/78 Negative -???-???-???-???-???-???-??? -???-???-???-???-???- Negative 145 24 -???-???-???-???-???-???-??? -???-???-???-???-???- SM- no vb lo f good fm scheduled us 04/24/20 -???-???-???-???-???-???-??? -???-???-???-???-???- 28w 6d 147 lb 2 oz (+17 lb 2 oz) 126/68 Negative -???-???-???-???-???-???-??? -???-???-???-???-???- Negative 145 28 -???-???-???-???-???-???-??? -???-???-???-???-???- SM- no vb lo f good fm no regular ctx 05/06/20 -???-???-???-???-???-???-??? -???-???-???-???-???- 30w 4d 150 lb 4 oz (+20 lb 4 oz) 138/80 Negative -???-???-???-???-???-???-??? -???-???-???-???-???- Negative 140 30 -???-???-???-???-???-???-??? -???-???-???-???-???- GP - No lof, VB, dfm, ctx. Denies complaints. GP - No lof, VB, dfm, ctx. Denies complaints. CB classes this weekend. 05/22/20 -???-???-???-???-???-???-??? -???-???-???-???-???- 32w 6d 150 lb (+20 lb) 124/66 Negative -???-???-???-???-???-???-??? -???-???-???-???-???- Negative 135 32 -???-???-???-???-???-???-??? -???-???-???-???-???- SM- no vb lo f good fm no regular ctx discussed labor preferences. 06/05/20 -???-???-???-???-???-???-??? -???-???-???-???-???- 34w 6d 154 lb (+24 lb) 120/80 Negative -???-???-???-???-???-???-??? -???-???-???-???-???- Negative 130 34 -???-???-???-???-???-???-??? -???-???-???-???-???- GP - no LOF, VB, DFM, regular ctx. Considering Aparna vs. Meron as names. ACOG First Trimester First Trimester: Desire for , Alcohol, Tobacco Cessation, Illicit/Recreational Drug/Substance Use, Intimate Partner Violence, Barriers to care, Unstable Housing, Communication Barriers, Environmental/Work Hazards, Anticipated Course of Care, Toxoplasmosis Precations, Use of Any medications, Sexual activity, Exercise, Dental Care, Sauna/Hot tub use, Seat Belt use, Childbirth classes/Hospital facilities, , Travel, Indications for US and Screening for Aneuploidy Diagnostics Diagnostics Diagnostics Blood Type AB NEGATIVE 04/24/20 Antibody Screen NEGATIVE 04/24/20 Glucose 1 Hr 50 gm 115 mg/dL (70-140) 04/24/20 HIV 1 2 Antibody Non-Reactive (Nonreactive) 12/16/19 Rubella IgG Antibody 209.7 IU/mL 12/16/19 Hgb 12.2 g/dL (12.0-15.0) 04/24/20 Hct 35.7 % (37-47) L 04/24/20 RPR NONREACTIVE (NONREACTIVE) 12/16/19 Details: HIV: Urine Culture: Sequential Screen: NIPT Screen: ROS Denies abnormal vaginal bleeding, Denies painful urination, Denies pelvic pain, Denies vaginal discharge Exam Const General: cooperative, healthy appearing, comfortable, no acute distress, well developed, well groomed HENMT Head: normal to inspection Resp Effort Inspection: normal respiratory effort, able to speak in complete sentences, symmetric chest movement Cardio Rate: regular rate GI Palpation: soft, nontender, other (gravid) Extrem General: no pedal edema Psych Appearance: grossly normal, well kempt Mental Status: mental status grossly normal Mood: congruent mood Affect: normal affect Speech and Movement: speech and movement normal Attitude: cooperative Thought Process: normal Thought Content: normal Judgment: judgment good Results POC Urinalysis 2 Dip (Clinic) Office Urine Glucose Negative Last Edit by Brittany Murphy on 06/05/20 15:01 Office Urine Protein Negative Last Edit by Brittany Murphy on 06/05/20 15:01 Assessment Plan Problems 1. Influenza vaccine administered Z23 [id number] 2. Rh negative status during O26.899; Z67.91 rhogam at 28 weeks and PRN 3. Asthma J45.909 singular, ProAir stable controlled by PCP 4. Supervision of normal first Z34.00 PRR ALVAREZ 07/11/2020 Girl Spouse: Trang 5. 34 weeks gestation of Z3A.34 declined genetic, carrier and NTD. anatomy reviewed. Orders Orders: POC Urinalysis 2 Dip (Clinic) Today Coding Level of Care Code OB Routine Diagnoses Influenza vaccine administered Z23 Rh negative status during O26.899; Z67.91 Asthma J45.909 Supervision of normal first Z34.00 34 weeks gestation of Z3A.34 ?Weeks of gestation: 34 weeks 06/05/20 1543 <Electronically signed by Aparna Allen MD> Date Aparna Allen MD Cosigner Signature: Date (if applicable) CC: Britta Acevedo Start: 05-22-2020 End: 05-22-2020 [employer] Welder Office Visit Report Comments: See Note; NOTES: [facility] [address] [place] [address] OFFICE VISIT Date of Service: 05/22/20 MR#: [id number] Acct: [id number] Name: PRISCILA RICHARDSON Rep #: [id number] : 1985 Provider: Dr. Sonya valentino MD Age/Sex: 35/F Location: [facility] Status: Signed Intake Vital Signs 05/22/20 BMI 21.8 05/22/20 Height 5 ft 5 in 05/22/20 Weight: 150 lb 05/22/20 BMI 25.0 05/22/20 BP 124/66 H Intake Visit Reasons: 32 WK OB Chief Complaint: est ob Is patient in pain?: No Allergies amoxicillin Allergy (Mild, Verified 05/22/20 14:46) Vomiting erythromycin base Allergy (Mild, Verified 05/22/20 14:46) Vomiting Medications albuterol sulfate 90 mcg/actuation aerosol inhaler 1 puff INHALATION Q6H 07/29/19 [History Confirmed 05/22/20] montelukast 10 mg tablet 10 mg PO QPM 07/29/19 [History Confirmed 05/22/20] vitamin#30 30 mg iron-10 mg iron-folic acid 1 mg-omg3 capsule cap PO 12/16/19 [History Confirmed 05/22/20] promethazine 12.5 mg tablet 12.5 mg PO TID PRN #60 tab 12/16/19 [Rx Confirmed 05/22/20] ondansetron 4 mg disintegrating tablet 4 mg PO Q4H PRN #60 tab 01/17/20 [Rx Confirmed 05/22/20] meclizine 12.5 mg tablet 12.5 mg PO TID PRN #60 tab 02/10/20 [Rx Confirmed 05/22/20] Last Menstral Period: 10/11/19 Zika: Zika virus screening: Negative : No PFSH PFSH Surgical History History of wisdom tooth extraction, class II edentulism (Acute) Family History Father auto immune disorder Social History (Updated 05/22/20 @ 15:[address] 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 OB Visit ALVAREZ Calculator Estimated Delivery Date Method Current WG Current Estimate 07/11/20 Ultrasound #1 32w 6d Other Estimates 07/17/20 LMP (Certain) 32w 0d Expected Delivery Route/Plan Labor Preferences- CB/BF classes: may and april labor support person: trang labor intervention preferences: none pain management options preferred: open to anything. cut cord/dad catch: yes maybe : yes PP control planned: pill or nuvaring discussed possible routes of delivery and associated risks: discussed possible delivery modalities and possible indications for each including R/B/A of , VAVD, and CS. questions answered. special requests: [] Specific Issue/Plans flu vaccine: 04/24 tdap vaccine: 04/24 rhogam: 04/24 LARC form signed: declined movement and labor precautions reviewed. Problem list reviewed and updated with the most current plan of care details and appropriate orders placed. Relevant counseling for the gestational age provided. Continue routine care and follow up unless otherwise noted in visit notes/problem list details Initial Weight: 130 lb Date -???-???-???-???-???-???-??? -???-???-???-???- EGA Weight BP Urine Prot -???-???-???-???-???-???-??? -???-???-???-???-???- Glucose FHR FuHt Pres Dilation -???-???-???-???-???-???-??? -???-???- Effaced St Visit Note 01/17/20 -???-???-???-???-???-???-??? -???-???-???-???- 14w 6d 129 lb 6 oz (-10 oz) 120/78 Negative -???-???-???-???-???-???-??? -???-???-???-???-???- Negative 151 -???-???-???-???-???-???-??? -???-???- MH-No Vb, cr amping. Still struggling with N V:zofran Rx. 02/10/20 -???-???-???-???-???-???-??? -???-???-???-???- 18w 2d 132 lb 2 oz (+2 lb 2 oz) 120/70 Negative -???-???-???-???-???-???-??? -???-???-???-???-???- Negative 150 -???-???-???-???-???-???-??? -???-???- SM- no vb cr amping doing well overall 03/24/20 -???-???-???-???-???-???-??? -???-???-???-???- 24w 3d 140 lb 8 oz (+10 lb 8 oz) 118/78 Negative -???-???-???-???-???-???-??? -???-???-???-???-???- Negative 145 24 -???-???-???-???-???-???-??? -???-???- SM- no vb lo f good fm scheduled us 04/24/20 -???-???-???-???-???-???-??? -???-???-???-???- 28w 6d 147 lb 2 oz (+17 lb 2 oz) 126/68 Negative -???-???-???-???-???-???-??? -???-???-???-???-???- Negative 145 28 -???-???-???-???-???-???-??? -???-???- SM- no vb lo f good fm no regular ctx 05/06/20 -???-???-???-???-???-???-??? -???-???-???-???- 30w 4d 150 lb 4 oz (+20 lb 4 oz) 138/80 Negative -???-???-???-???-???-???-??? -???-???-???-???-???- Negative 140 30 -???-???-???-???-???-???-??? -???-???- GP - No lof, VB, dfm, ctx. Denies complaints. GP - No lof, VB, dfm, ctx. Denies complaints. CB classes this weekend. 05/22/20 -???-???-???-???-???-???-??? -???-???-???-???- 32w 6d 150 lb (+20 lb) 124/66 Negative -???-???-???-???-???-???-??? -???-???-???-???-???- Negative 135 32 -???-???-???-???-???-???-??? -???-???- SM- no vb lo f good fm no regular ctx discussed labor preferences. ACOG First Trimester First Trimester: Desire for , Alcohol, Tobacco Cessation, Illicit/Recreational Drug/Substance Use, Intimate Partner Violence, Barriers to care, Unstable Housing, Communication Barriers, Environmental/Work Hazards, Anticipated Course of Care, Toxoplasmosis Precations, Use of Any medications, Sexual activity, Exercise, Dental Care, Sauna/Hot tub use, Seat Belt use, Childbirth classes/Hospital facilities, , Travel, Indications for US and Screening for Aneuploidy Diagnostics Diagnostics Diagnostics Blood Type AB NEGATIVE 04/24/20 Antibody Screen NEGATIVE 04/24/20 Glucose 1 Hr 50 gm 115 mg/dL (70-140) 04/24/20 HIV 1 2 Antibody Non-Reactive (Nonreactive) 12/16/19 Rubella IgG Antibody 209.7 IU/mL 12/16/19 Hgb 12.2 g/dL (12.0-15.0) 04/24/20 Hct 35.7 % (37-47) L 04/24/20 RPR NONREACTIVE (NONREACTIVE) 12/16/19 Details: HIV: Urine Culture: Sequential Screen: NIPT Screen: Results POC Urinalysis 2 Dip (Clinic) Office Urine Glucose Negative Last Edit by Julia Perdomo on 05/22/20 14:51 Office Urine Protein Negative Last Edit by Julia Perdomo on 05/22/20 14:51 Assessment Plan Problems 1. Z34.90 declined genetic, carrier and NTD. anatomy reviewed. 2. Supervision of normal first Z34.00 PRR ALVAREZ 07/11/2020 Girl Spouse: Trang 3. Asthma J45.909 singular, ProAir stable controlled by PCP 4. Rh negative status during O26.899; Z67.91 rhogam at 28 weeks and PRN 5. Influenza vaccine administered Z23 [id number] Orders Orders: POC Urinalysis 2 Dip (Clinic) Today Coding Level of Care Code OB Routine Diagnoses Z34.90 Supervision of normal first Z34.00 Asthma J45.909 Rh negative status during O26.899; Z67.91 Influenza vaccine administered Z23 05/22/20 1528 <Electronically signed by Sonya Benoit MD> Date Sonya Benoit MD Cosigner Signature: Date (if applicable) CC: Britta Acevedo Start: 05-06-2020 End: 05-06-2020 O[employer] Welder Office Visit Report Comments: See Note; NOTES: [facility] [address] [place] [address]. [address] [place] [address] OFFICE VISIT Date of Service: 05/06/20 MR#: [id number] Acct: [id number] Name: PRISCILA RICHARDSON Rep #: [id number] : 1985 Provider: Dr. Aparna eller MD Age/Sex: 34/F Location: [facility] Status: Signed Intake Vital Signs 05/06/20 Height 5 ft 5 in 05/06/20 Weight: 150 lb 4 oz 05/06/20 BMI 25.0 05/06/20 BP 138/80 H Intake Visit Reasons: 30 wk ob/glucose, moved from 05/07 prov out Pleating Supervisor Required: No Is patient in pain?: No Allergies amoxicillin Allergy (Mild, Verified 05/06/20 15:46) Vomiting erythromycin base Allergy (Mild, Verified 05/06/20 15:46) Vomiting Medications albuterol sulfate 90 mcg/actuation aerosol inhaler 1 puff INHALATION Q6H 07/29/19 [History Confirmed 05/06/20] montelukast 10 mg tablet 10 mg PO QPM 07/29/19 [History Confirmed 05/06/20] vitamin#30 30 mg iron-10 mg iron-folic acid 1 mg-omg3 capsule cap PO 12/16/19 [History Confirmed 05/06/20] promethazine 12.5 mg tablet 12.5 mg PO TID PRN #60 tab 12/16/19 [Rx Confirmed 05/06/20] ondansetron 4 mg disintegrating tablet 4 mg PO Q4H PRN #60 tab 01/17/20 [Rx Confirmed 05/06/20] meclizine 12.5 mg tablet 12.5 mg PO TID PRN #60 tab 02/10/20 [Rx Confirmed 05/06/20] Last Menstral Period: 10/11/19 Zika: Zika virus screening: Negative : No PFSH PFSH Surgical History History of wisdom tooth extraction, class II edentulism (Acute) Family History Father auto immune disorder Social History (Updated 05/06/20 @ 20:[address] 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 OB Visit ALVAREZ Calculator Estimated Delivery Date Method Current WG Current Estimate 07/11/20 Ultrasound #1 30w 4d Other Estimates 07/17/20 LMP (Certain) 29w 5d Expected Delivery Route/Plan Labor Preferences- CB/BF classes: may and april labor support person: trang labor intervention preferences: [] pain management options preferred: [] cut cord/dad catch: [] : [] PP control planned: [] discussed possible routes of delivery and associated risks: [] special requests: [] Specific Issue/Plans flu vaccine: 04/24 tdap vaccine: 04/24 rhogam: 04/24 LARC form signed: [] movement and labor precautions reviewed. Problem list reviewed and updated with the most current plan of care details and appropriate orders placed. Relevant counseling for the gestational age provided. Continue routine care and follow up unless otherwise noted in visit notes/problem list details Initial Weight: 130 lb Date -???-???-???-???-???-???-??? -???-???-???-???- EGA Weight BP Urine Prot -???-???-???-???-???-???-??? -???-???-???-???-???- Glucose FHR FuHt Pres Dilation -???-???-???-???-???-???-??? -???-???- Effaced St Visit Note 01/17/20 -???-???-???-???-???-???-??? -???-???-???-???- 14w 6d 129 lb 6 oz (-10 oz) 120/78 Negative -???-???-???-???-???-???-??? -???-???-???-???-???- Negative 151 -???-???-???-???-???-???-??? -???-???- -No Vb, sharyn handing. Still struggling with N V:filemon Rx. 02/10/20 -???-???-???-???-???-???-??? -???-???-???-???- 18w 2d 132 lb 2 oz (+2 lb 2 oz) 120/70 Negative -???-???-???-???-???-???-??? -???-???-???-???-???- Negative 150 -???-???-???-???-???-???-??? -???-???- SM- no vb cr amping doing well overall 03/24/20 -???-???-???-???-???-???-??? -???-???-???-???- 24w 3d 140 lb 8 oz (+10 lb 8 oz) 118/78 Negative -???-???-???-???-???-???-??? -???-???-???-???-???- Negative 145 24 -???-???-???-???-???-???-??? -???-???- SM- no vb lo f good fm scheduled us 04/24/20 -???-???-???-???-???-???-??? -???-???-???-???- 28w 6d 147 lb 2 oz (+17 lb 2 oz) 126/68 Negative -???-???-???-???-???-???-??? -???-???-???-???-???- Negative 145 28 -???-???-???-???-???-???-??? -???-???- SM- no vb lo f good fm no regular ctx 05/06/20 -???-???-???-???-???-???-??? -???-???-???-???- 30w 4d 150 lb 4 oz (+20 lb 4 oz) 138/80 Negative -???-???-???-???-???-???-??? -???-???-???-???-???- Negative 140 30 -???-???-???-???-???-???-??? -???-???- GP - No lof, VB, dfm, ctx. Denies complaints. GP - No lof, VB, dfm, ctx. Denies complaints. CB classes this weekend. ACOG First Trimester First Trimester: Desire for , Alcohol, Tobacco Cessation, Illicit/Recreational Drug/Substance Use, Intimate Partner Violence, Barriers to care, Unstable Housing, Communication Barriers, Environmental/Work Hazards, Anticipated Course of Care, Toxoplasmosis Precations, Use of Any medications, Sexual activity, Exercise, Dental Care, Sauna/Hot tub use, Seat Belt use, Childbirth classes/Hospital facilities, , Travel, Indications for US and Screening for Aneuploidy Diagnostics Diagnostics Diagnostics Blood Type AB NEGATIVE 04/24/20 Antibody Screen NEGATIVE 04/24/20 Glucose 1 Hr 50 gm 115 mg/dL (70-140) 04/24/20 HIV 1 2 Antibody Non-Reactive (Nonreactive) 12/16/19 Rubella IgG Antibody 209.7 IU/mL 12/16/19 Hgb 12.2 g/dL (12.0-15.0) 04/24/20 Hct 35.7 % (37-47) L 04/24/20 RPR NONREACTIVE (NONREACTIVE) 12/16/19 Details: HIV: Urine Culture: Sequential Screen: NIPT Screen: ROS Const Reports fatigue, Reports increased appetite GI Denies constipation, Denies heartburn, Denies nausea, Denies vomiting Denies abnormal vaginal bleeding, Denies painful urination, Denies pelvic pain, Denies vaginal discharge Endo Reports fatigue Exam Const General: cooperative, healthy appearing, comfortable, no acute distress, well developed, well groomed HENMT Head: normal to inspection Resp Effort Inspection: normal respiratory effort, able to speak in complete sentences, symmetric chest movement Cardio Rate: regular rate GI Palpation: soft, nontender, other (gravid) Extrem General: no pedal edema Psych Appearance: grossly normal, well kempt Mental Status: mental status grossly normal Mood: congruent mood Affect: normal affect Speech and Movement: speech and movement normal Attitude: cooperative Thought Process: normal Thought Content: normal Judgment: judgment good Results POC Urinalysis 2 Dip (Clinic) Office Urine Glucose Negative Last Edit by Brittany Murphy on 05/06/20 15:59 Office Urine Protein Negative Last Edit by Brittany Murphy on 05/06/20 15:59 Immunizations Flucelvax Quad [id number] (PF) Performing Provider: Aparna Allen MD Administered by: Brittany Murphy on 05/06/20 16:00 Dose Route Admin Location Lot Number Expiration Date [facility] Manufactu rer 60 mcg IM Left Deltoid [id number] 01/23/21 [id number] SEQIRUS VIS Given Date VIS Provided VIS Publication Date 05/06/20 Single Vaccine 19 Eligibility Eligibility Date Funding Source Not Applicable Assessment Plan Problems 1. Rh negative status during O26.899; Z67.91 rhogam at 28 weeks and PRN 2. Supervision of normal first Z34.00 PRR ALVAREZ 07/11/2020 Girl Spouse: Trang 3. 30 weeks gestation of Z3A.30 declined genetic, carrier and NTD. anatomy reviewed. 4. Asthma J45.909 singular, ProAir stable controlled by PCP Orders Orders: Influenza Immunization Today Z23 POC Urinalysis 2 Dip (Clinic) Today Coding Level of Care Code OB Routine Diagnoses Rh negative status during O26.899; Z67.91 Supervision of normal first Z34.00 30 weeks gestation of Z3A.30 ?Weeks of gestation: 30 weeks Asthma J45.909 05/06/202025 <Electronically signed by Aparna Allen MD> Date Aparna Allen MD Cosigner Signature: Date (if applicable) CC: Britta Acevedo Start: 04-24-2020 End: 04-24-2020 Oxy[employer] Welder Office Visit Report Comments: See Note; NOTES: [facility] [address] [place] [address] OFFICE VISIT Date of Service: 04/24/20 MR#: [id number] Acct: [id number] Name: PRISCILA RICHARDSON Rep #: [id number] : 1985 Provider: Dr. Sonya valentino MD Age/Sex: 34/F Location: [facility] Status: Signed Intake Vital Signs 04/24/20 BMI 23.3 04/24/20 Height 5 ft 5 in 04/24/20 Weight: 147 lb 2 oz 04/24/20 BMI 24.5 04/24/20 BP 126/68 H Intake Visit Reasons: 28 WK OB/GLUCOSE Pleating Supervisor Required: No Accompanied by: self Allergies amoxicillin Allergy (Mild, Verified 04/24/20 13:44) Vomiting erythromycin base Allergy (Mild, Verified 04/24/20 13:44) Vomiting Medications albuterol sulfate 90 mcg/actuation aerosol inhaler 1 puff INHALATION Q6H 07/29/19 [History Confirmed 04/24/20] montelukast 10 mg tablet 10 mg PO QPM 07/29/19 [History Confirmed 04/24/20] vitamin#30 30 mg iron-10 mg iron-folic acid 1 mg-omg3 capsule cap PO 12/16/19 [History Confirmed 04/24/20] promethazine 12.5 mg tablet 12.5 mg PO TID PRN #60 tab 12/16/19 [Rx Confirmed 04/24/20] ondansetron 4 mg disintegrating tablet 4 mg PO Q4H PRN #60 tab 01/17/20 [Rx Confirmed 04/24/20] meclizine 12.5 mg tablet 12.5 mg PO TID PRN #60 tab 02/10/20 [Rx Confirmed 04/24/20] Last Menstral Period: 10/11/19 Zika: Zika virus screening: Negative : No PFSH PFSH Surgical History History of wisdom tooth extraction, class II edentulism (Acute) Family History Father auto immune disorder Social History (Updated 04/24/20 @ 14:[address] 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 OB Visit ALVAREZ Calculator Estimated Delivery Date Method Current WG Current Estimate 07/11/20 Ultrasound #1 28w 6d Other Estimates 07/17/20 LMP (Certain) 28w 0d Expected Delivery Route/Plan Labor Preferences- CB/BF classes: may and april labor support person: trang labor intervention preferences: [] pain management options preferred: [] cut cord/dad catch: [] : [] PP control planned: [] discussed possible routes of delivery and associated risks: [] special requests: [] Specific Issue/Plans flu vaccine: 04/24 tdap vaccine: 04/24 rhogam: 04/24 LARC form signed: [] movement and labor precautions reviewed. Problem list reviewed and updated with the most current plan of care details and appropriate orders placed. Relevant counseling for the gestational age provided. Continue routine care and follow up unless otherwise noted in visit notes/problem list details Initial Weight: 130 lb Date -???-???-???-???-???-???-??? -???-???-???-???- EGA Weight BP Urine Prot -???-???-???-???-???-???-??? -???-???-???-???-???- Glucose FHR FuHt Pres Dilation -???-???-???-???-???-???-??? -???-???- Effaced St Visit Note 01/17/20 -???-???-???-???-???-???-??? -???-???-???-???- 14w 6d 129 lb 6 oz (-10 oz) 120/78 Negative -???-???-???-???-???-???-??? -???-???-???-???-???- Negative 151 -???-???-???-???-???-???-??? -???-???- -No Vb, cr amping. Still struggling with N V:filemon Rx. 02/10/20 -???-???-???-???-???-???-??? -???-???-???-???- 18w 2d 132 lb 2 oz (+2 lb 2 oz) 120/70 Negative -???-???-???-???-???-???-??? -???-???-???-???-???- Negative 150 -???-???-???-???-???-???-??? -???-???- SM- no vb cr amping doing well overall 03/24/20 -???-???-???-???-???-???-??? -???-???-???-???- 24w 3d 140 lb 8 oz (+10 lb 8 oz) 118/78 Negative -???-???-???-???-???-???-??? -???-???-???-???-???- Negative 145 24 -???-???-???-???-???-???-??? -???-???- SM- no vb lo f good fm scheduled us 04/24/20 -???-???-???-???-???-???-??? -???-???-???-???- 28w 6d 147 lb 2 oz (+17 lb 2 oz) 126/68 Negative -???-???-???-???-???-???-??? -???-???-???-???-???- Negative 145 28 -???-???-???-???-???-???-??? -???-???- SM- no vb lo f good fm no regular ctx ACOG First Trimester First Trimester: Desire for , Alcohol, Tobacco Cessation, Illicit/Recreational Drug/Substance Use, Intimate Partner Violence, Barriers to care, Unstable Housing, Communication Barriers, Environmental/Work Hazards, Anticipated Course of Care, Toxoplasmosis Precations, Use of Any medications, Sexual activity, Exercise, Dental Care, Sauna/Hot tub use, Seat Belt use, Childbirth classes/Hospital facilities, , Travel, Indications for US and Screening for Aneuploidy Diagnostics Diagnostics Diagnostics Blood Type Pending 04/24/20 Antibody Screen Pending 04/24/20 Glucose 1 Hr 50 gm 115 mg/dL (70-140) 04/24/20 HIV 1 2 Antibody Non-Reactive (Nonreactive) 12/16/19 Rubella IgG Antibody 209.7 IU/mL 12/16/19 Hgb 12.2 g/dL (12.0-15.0) 04/24/20 Hct 35.7 % (37-47) L 04/24/20 RPR NONREACTIVE (NONREACTIVE) 12/16/19 Details: HIV: Urine Culture: Sequential Screen: NIPT Screen: Office Meds RhoGAM Ultra-Filtered PLUS Performing Provider: Sonya Benoit MD Administered by: Eleni English on 04/24/20 13:53 Dose Route Admin Location Lot Number Expiration Date NDC Manufactu rer 1,500 unit [facility] [id number] 10/19/21 [id number] Purple Blue Bo Results POC Urinalysis 2 Dip (Clinic) Office Urine Glucose Negative Last Edit by Eleni English on 04/24/20 13:53 Office Urine Protein Negative Last Edit by Eleni English on 04/24/20 13:53 Immunizations Boostrix Tdap Performing Provider: Sonya Benoit MD Administered by: Eleni English on 04/24/20 13:53 Dose Route Admin Location Lot Number Expiration Date [facility] Manufactu rer 0.5 mL IM Left Deltoid [id number] 01/31/22 [id number] [employer] VIS Given Date VIS Provided VIS Publication Date 04/24/20 Single Vaccine 14 Eligibility Eligibility Date Funding Source Not Applicable Assessment Plan Problems 1. Z34.90 declined genetic, carrier and NTD. anatomy reviewed. 2. Supervision of normal first Z34.00 PRR ALVAREZ 07/11/2020 Spouse: Trang 3. Asthma J45.909 singular, ProAir stable controlled by PCP 4. 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 [place], [place] [address] OFFICE VISIT Date of Service: 03/24/20 MR#: [id number] Acct: [id number] Name: PRISCILA RICHARDSON Rep #: [id number] : 1985 Provider: Dr. Sonya valentino MD Age/Sex: 34/F Location: [facility] Status: Signed Intake Vital Signs 03/24/20 Height 5 ft 5 in 03/24/20 Weight: 140 lb 8 oz 03/24/20 BMI 23.3 03/24/20 BP 118/78 03/24/20 BMI 21.8 Intake Visit Reasons: 22 WK OB Pleating Supervisor Required: No Is patient in pain?: No Allergies amoxicillin Allergy (Mild, Verified 03/24/20 13:04) Vomiting erythromycin base Allergy (Mild, Verified 03/24/20 13:04) Vomiting Medications albuterol sulfate 90 mcg/actuation aerosol inhaler 1 puff INHALATION Q6H 07/29/19 [History Confirmed 03/24/20] montelukast 10 mg tablet 10 mg PO QPM 07/29/19 [History Confirmed 03/24/20] vitamin#30 30 mg iron-10 mg iron-folic acid 1 mg-omg3 capsule cap PO 12/16/19 [History Confirmed 03/24/20] promethazine 12.5 mg tablet 12.5 mg PO TID PRN #60 tab 12/16/19 [Rx Confirmed 03/24/20] ondansetron 4 mg disintegrating tablet 4 mg PO Q4H PRN #60 tab 01/17/20 [Rx Confirmed 03/24/20] meclizine 12.5 mg tablet 12.5 mg PO TID PRN #60 tab 02/10/20 [Rx Confirmed 03/24/20] Last Menstral Period: 10/11/19 Zika: Zika virus screening: Negative : No PFSH PFSH Surgical History History of wisdom tooth extraction, class II edentulism (Acute) Family History Father auto immune disorder Social History (Updated 03/24/20 @ 13:[address] 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 OB Visit ALVAREZ Calculator Estimated Delivery Date Method Current WG Current Estimate 07/11/20 Ultrasound #1 24w 3d Other Estimates 07/17/20 LMP (Certain) 23w 4d Expected Delivery Route/Plan Labor Preferences- labor support person: [] pain management options preferred: [] cut cord/dad catch: [] : [] PP control planned: [] discussed possible routes of delivery and associated risks: [] special requests: [] Specific Issue/Plans flu vaccine: [] tdap vaccine: [] rhogam: [] LARC form signed: [] Problem list reviewed and updated with the most current plan of care details and appropriate orders placed. Relevant counseling for the gestational age provided. Continue routine care and follow up unless otherwise noted in visit notes/problem list details Initial Weight: 130 lb Date -???-???-???-???-???-???-??? -???-???-???-???- EGA Weight BP Urine Prot -???-???-???-???-???-???-??? -???-???-???-???-???- Glucose FHR FuHt Pres Dilation -???-???-???-???-???-???-??? -???-???- Effaced St Visit Note 01/17/20 -???-???-???-???-???-???-??? -???-???-???-???- 14w 6d 129 lb 6 oz (-10 oz) 120/78 Negative -???-???-???-???-???-???-??? -???-???-???-???-???- Negative 151 -???-???-???-???-???-???-??? -???-???- -No Vb, cr amping. Still struggling with N V:criseldaemanuel Rx. 02/10/20 -???-???-???-???-???-???-??? -???-???-???-???- 18w 2d 132 lb 2 oz (+2 lb 2 oz) 120/70 Negative -???-???-???-???-???-???-??? -???-???-???-???-???- Negative 150 -???-???-???-???-???-???-??? -???-???- SM- no vb cr amping doing well overall 03/24/20 -???-???-???-???-???-???-??? -???-???-???-???- 24w 3d 140 lb 8 oz (+10 lb 8 oz) 118/78 Negative -???-???-???-???-???-???-??? -???-???-???-???-???- Negative 145 24 -???-???-???-???-???-???-??? -???-???- SM- no vb ronaldo jean baptiste scheduled us ACOG First Trimester First Trimester: Desire for , Alcohol, Tobacco Cessation, Illicit/Recreational Drug/Substance Use, Intimate Partner Violence, Barriers to care, Unstable Housing, Communication Barriers, Environmental/Work Hazards, Anticipated Course of Care, Toxoplasmosis Precations, Use of Any medications, Sexual activity, Exercise, Dental Care, Sauna/Hot tub use, Seat Belt use, Childbirth classes/Hospital facilities, , Travel, Indications for US and Screening for Aneuploidy Diagnostics Diagnostics Diagnostics Blood Type AB NEGATIVE 12/16/19 Antibody Screen NEGATIVE 12/16/19 HIV 1 2 Antibody Non-Reactive (Nonreactive) 12/16/19 Rubella IgG Antibody 209.7 IU/mL 12/16/19 Hgb 12.7 g/dL (12.0-15.0) 12/16/19 Hct 35.5 % (37-47) L 12/16/19 RPR NONREACTIVE (NONREACTIVE) 12/16/19 Details: HIV: Urine Culture: Sequential Screen: NIPT Screen: Results POC Urinalysis 2 Dip (Clinic) Office Urine Glucose Negative Last Edit by Brittany Murphy on 03/24/20 13:28 Office Urine Protein Negative Last Edit by Brittany Murphy on 03/24/20 13:28 Assessment Plan Problems 1. Low-lying placenta in second trimester O44.42 FU US @ 28 wks 2. Rh negative status during O26.899; Z67.91 rhogam at 28 weeks and PRN 3. Asthma J45.909 singular, ProAir stable controlled by PCP 4. Supervision of normal first Z34.00 PRR ALVAREZ 07/11/2020 Spouse: Trang 5. 24 weeks gestation of Z3A.24 declined genetic, carrier and NTD. anatomy reviewed. 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 [place] [address] OFFICE VISIT Date of Service: 02/10/20 MR#: [id number] Acct: [id number] Name: PRISCILA RICHARDSON Rep #: [id number] : 1985 Provider: Dr. Sonya valentino MD Age/Sex: 34/F Location: [facility] Status: Signed Intake Vital Signs 02/10/20 BMI 21.8 02/10/20 Height 5 ft 5 in 02/10/20 Weight: 132 lb 2 oz 02/10/20 BMI 21.9 02/10/20 BP 120/70 Intake Visit Reasons: 18 WK OB Pleating Supervisor Required: No Is patient in pain?: No Allergies amoxicillin Allergy (Mild, Verified 02/10/20 16:26) Vomiting erythromycin base Allergy (Mild, Verified 02/10/20 16:26) Vomiting Medications albuterol sulfate 90 mcg/actuation aerosol inhaler 1 puff INHALATION Q6H 07/29/19 [History Confirmed 02/10/20] montelukast 10 mg tablet 10 mg PO QPM 07/29/19 [History Confirmed 02/10/20] vitamin#30 30 mg iron-10 mg iron-folic acid 1 mg-omg3 capsule cap PO 12/16/19 [History Confirmed 02/10/20] promethazine 12.5 mg tablet 12.5 mg PO TID PRN #60 tab 12/16/19 [Rx Confirmed 02/10/20] ondansetron 4 mg disintegrating tablet 4 mg PO Q4H PRN #60 tab 01/17/20 [Rx Confirmed 02/10/20] meclizine 12.5 mg tablet 12.5 mg PO TID PRN #60 tab 02/10/20 [Rx] Last Menstral Period: 10/11/19 Zika: Zika virus screening: Negative : No PFSH PFSH Surgical History History of wisdom tooth extraction, class II edentulism (Acute) Family History Father auto immune disorder Social History (Updated 02/12/20 @ 07:[address] 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 OB Visit ALVAREZ Calculator Estimated Delivery Date Method Current WG Current Estimate 07/11/20 Ultrasound #1 18w 4d Other Estimates 07/17/20 LMP (Certain) 17w 5d Expected Delivery Route/Plan Labor Preferences- labor support person: [] pain management options preferred: [] cut cord/dad catch: [] : [] PP control planned: [] discussed possible routes of delivery and associated risks: [] special requests: [] Specific Issue/Plans flu vaccine: [] tdap vaccine: [] rhogam: [] LARC form signed: [] Problem list reviewed and updated with the most current plan of care details and appropriate orders placed. Relevant counseling for the gestational age provided. Continue routine care and follow up unless otherwise noted in visit notes/problem list details Initial Weight: 130 lb Date -???-???-???-???-???-???-??? -???-???-???-???- EGA Weight BP Urine Prot -???-???-???-???-???-???-??? -???-???-???-???-???- Glucose FHR FuHt Pres Dilation -???-???-???-???-???-???-??? -???-???- Effaced St Visit Note 01/17/20 -???-???-???-???-???-???-??? -???-???-???-???- 14w 6d 129 lb 6 oz (-10 oz) 120/78 Negative -???-???-???-???-???-???-??? -???-???-???-???-???- Negative 151 -???-???-???-???-???-???-??? -???-???- -No Vb, cr amping. Still struggling with N V:criseldafran Rx. 02/10/20 -???-???-???-???-???-???-??? -???-???-???-???- 18w 2d 132 lb 2 oz (+2 lb 2 oz) 120/70 Negative -???-???-???-???-???-???-??? -???-???-???-???-???- Negative 150 -???-???-???-???-???-???-??? -???-???- SM- no vb cr amping doing well overall ACOG First Trimester First Trimester: Desire for , Alcohol, Tobacco Cessation, Illicit/Recreational Drug/Substance Use, Intimate Partner Violence, Barriers to care, Unstable Housing, Communication Barriers, Environmental/Work Hazards, Anticipated Course of Care, Toxoplasmosis Precations, Use of Any medications, Sexual activity, Exercise, Dental Care, Sauna/Hot tub use, Seat Belt use, Childbirth classes/Hospital facilities, , Travel, Indications for US and Screening for Aneuploidy Diagnostics Diagnostics Diagnostics Blood Type AB NEGATIVE 12/16/19 Antibody Screen NEGATIVE 12/16/19 HIV 1 2 Antibody Non-Reactive (Nonreactive) 12/16/19 Rubella IgG Antibody 209.7 IU/mL 12/16/19 Hgb 12.7 g/dL (12.0-15.0) 12/16/19 Hct 35.5 % (37-47) L 12/16/19 RPR NONREACTIVE (NONREACTIVE) 12/16/19 Details: HIV: Urine Culture: Sequential Screen: NIPT Screen: Results POC Urinalysis 2 Dip (Clinic) Office Urine Glucose Negative Last Edit by Brittany Murphy on 02/10/20 16:36 Office Urine Protein Negative Last Edit by Brittany Murphy on 02/10/20 16:36 Assessment Plan Problems 1. Z34.90 discussed genetic, carrier and NTD 2. Supervision of normal first Z34.00 PRR ALVAREZ 07/11/2020 Spouse: Trang 3. Asthma J45.909 singular, ProAir 4. 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 [place] [address] OFFICE VISIT Date of Service: 01/17/20 MR#: [id number] Acct: [id number] Name: PRISCILA RICHARDSON Rep #: [id number] : 1985 Provider: LUCITA pereira Age/Sex: 34/F Location: [facility] Status: Signed Intake Vital Signs 01/17/20 BMI 21.8 01/17/20 Height 5 ft 5 in 01/17/20 Weight: 129 lb 6 oz 01/17/20 BMI 21.5 01/17/20 BP 120/78 Intake Visit Reasons: 14 WK OB Pleating Supervisor Required: No Is patient in pain?: No Allergies amoxicillin Allergy (Mild, Verified 01/17/20 14:25) Vomiting erythromycin base Allergy (Mild, Verified 01/17/20 14:25) Vomiting Medications albuterol sulfate 90 mcg/actuation aerosol inhaler 1 puff INHALATION Q6H 07/29/19 [History Confirmed 01/17/20] montelukast 10 mg tablet 10 mg PO QPM 07/29/19 [History Confirmed 01/17/20] vitamin#30 30 mg iron-10 mg iron-folic acid 1 mg-omg3 capsule cap PO 12/16/19 [History Confirmed 01/17/20] promethazine 12.5 mg tablet 12.5 mg PO TID PRN #60 tab 12/16/19 [Rx Confirmed 01/17/20] ondansetron 4 mg disintegrating tablet 4 mg PO Q4H PRN #60 tab 01/17/20 [Rx Confirmed 01/17/20] Last Menstral Period: 10/11/19 Zika: Zika virus screening: Negative : No PFSH PFSH Surgical History History of wisdom tooth extraction, class II edentulism (Acute) Family History Father auto immune disorder Social History (Updated 01/17/20 @ 14:38 by RASTA Cardenas) Smoking Status: Never smoker alcohol intake: current details: pre- substance use type: does not use caffeine: Yes what type of physical activity do you participate in: walking frequency: 3-4 times per week seatbelt use: always do you feel safe at home: Yes additional social history: Trang- 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 OB Visit ALVAREZ Calculator Estimated Delivery Date Method Current WG Current Estimate 07/11/20 Ultrasound #1 14w 6d Other Estimates 07/17/20 LMP (Certain) 14w 0d Expected Delivery Route/Plan Labor Preferences- labor support person: [] pain management options preferred: [] cut cord/dad catch: [] : [] PP control planned: [] discussed possible routes of delivery and associated risks: [] special requests: [] Specific Issue/Plans flu vaccine: [] tdap vaccine: [] rhogam: [] LARC form signed: [] Problem list reviewed and updated with the most current plan of care details and appropriate orders placed. Relevant counseling for the gestational age provided. Continue routine care and follow up unless otherwise noted in visit notes/problem list details Initial Weight: 130 lb Date -???-???-???-???-???-???-??? -???-???-???-???- EGA Weight BP Urine Prot -???-???-???-???-???-???-??? -???-???-???-???-???- Glucose FHR FuHt Pres Dilation -???-???-???-???-???-???-??? -???-???- Effaced St Visit Note 01/17/20 -???-???-???-???-???-???-??? -???-???-???-???- 14w 6d 129 lb 6 oz (-10 oz) 120/78 Negative -???-???-???-???-???-???-??? -???-???-???-???-???- Negative 151 -???-???-???-???-???-???-??? -???-???- MH-No Vb, cr amping. Still struggling with N V:zofran Rx. ACOG First Trimester First Trimester: Desire for , Alcohol, Tobacco Cessation, Illicit/Recreational Drug/Substance Use, Intimate Partner Violence, Barriers to care, Unstable Housing, Communication Barriers, Environmental/Work Hazards, Anticipated Course of Care, Toxoplasmosis Precations, Use of Any medications, Sexual activity, Exercise, Dental Care, Sauna/Hot tub use, Seat Belt use, Childbirth classes/Hospital facilities, , Travel, Indications for US and Screening for Aneuploidy Diagnostics Diagnostics Diagnostics Blood Type AB NEGATIVE 12/16/19 Antibody Screen NEGATIVE 12/16/19 HIV 1 2 Antibody Non-Reactive (Nonreactive) 12/16/19 Rubella IgG Antibody 209.7 IU/mL 12/16/19 Hgb 12.7 g/dL (12.0-15.0) 12/16/19 Hct 35.5 % (37-47) L 12/16/19 RPR NONREACTIVE (NONREACTIVE) 12/16/19 Details: HIV: Urine Culture: Sequential Screen: NIPT Screen: Results POC Urinalysis 2 Dip (Clinic) Office Urine Glucose Negative Last Edit by Mariana English on 01/17/20 14:19 Office Urine Protein Negative Last Edit by Mariana English on 01/17/20 14:19 Assessment Plan Problems 1. Encounter for supervision of normal first in first trimester Z34.01 PRR ALVAREZ 07/11/2020 Spouse: Trang 2. 14 weeks gestation of Z3A.14 discussed genetic, carrier and NTD 3. Rh negative status during in second trimester O26.892; Z67.91 rhogam candidate Plan Orders placed: MFM US Reviewed of labor precautions, movement/kick counts ACOG trimester education reviewed and updated See problem list details for updated plan of care Gestational age appropriate handout given RTO: 4 weeks Orders Orders: POC Urinalysis 2 Dip (Clinic) Today Medications New: ondansetron 4 mg PO Q4H PRN 60 tabs 2RF nausea and vomiting Coding Level of Care Code OB Routine Diagnoses Encounter for supervision of normal first in first trimester Z34.01 ?Trimester: first trimester 14 weeks gestation of Z3A.14 ?Weeks of gestation: 14 weeks Rh negative status during in second trimester O26.892; Z67.91 ?Trimester: second trimester 01/17/20 1438 <Electronically signed by Ana Cristina MAGDALENO> Date Ana Cristina MAGDALENO Cosigner Signature: Date (if applicable) CC: Britta Acevedo Start: 12-16-2019 End: 12-16-2019 MR/[facility] Comments: See Note; NOTES: [facility] [address] [place] [address] OFFICE VISIT Date of Service: 12/16/19 MR#: [id number] Acct: [id number] Name: PRISCILA RICHARDSON Rep #: [id number] : 1985 Provider: Sonya perea MD Age/Sex: 34/F Location: [facility] Status: Signed Intake Vital Signs 12/16/19 BMI 21.8 12/16/19 Height 5 ft 5 in 12/16/19 Weight: 130 lb 12/16/19 BMI 21.6 12/16/19 BP 118/62 Intake Visit Reasons: NOB LMP 10/11/19 Chief Complaint: NEW OB LMP [id number] Pleating Supervisor Required: No Is patient in pain?: No Allergies amoxicillin Allergy (Mild, Verified 12/16/19 13:49) Vomiting erythromycin base Allergy (Mild, Verified 12/16/19 13:49) Vomiting Medications albuterol sulfate 90 mcg/actuation aerosol inhaler 1 puff INHALATION Q6H 07/29/19 [History Confirmed 12/16/19] montelukast 10 mg tablet 10 mg PO QPM 07/29/19 [History Confirmed 12/16/19] vitamin#30 30 mg iron-10 mg iron-folic acid 1 mg-omg3 capsule cap PO 12/16/19 [History] promethazine 12.5 mg tablet 12.5 mg PO TID PRN #60 tab 12/16/19 [Rx Confirmed 12/16/19] Last Menstral Period: 10/11/19 Zika: Zika virus screening: Negative : No PFSH PFSH Surgical History History of wisdom tooth extraction, class II edentulism (Acute) Family History Father auto immune disorder Social History (Updated 12/16/19 @ 14:[address] 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 OB Visit ALVAREZ Calculator Estimated Delivery Date Method Current WG Current Estimate 07/11/20 Ultrasound #1 10w 2d Other Estimates 07/17/20 LMP (Certain) 9w 3d Estimated Due Date: 07/17/20 Expected Delivery Route/Plan Labor Preferences- labor support person: [] pain management options preferred: [] cut cord/dad catch: [] : [] PP control planned: [] discussed possible routes of delivery and associated risks: [] special requests: [] Specific Issue/Plans flu vaccine: [] tdap vaccine: [] rhogam: [] LARC form signed: [] Problem list reviewed and updated with the most current plan of care details and appropriate orders placed. Relevant counseling for the gestational age provided. Continue routine care and follow up unless otherwise noted in visit notes/problem list details Menstrual History Last Menstral Period: 10/11/19 Reported LMP: definite Normal amount/duration: Yes On hormonal BC at conception: No hCG+: 11/13/19 Antepartum Record Genetic Screening: Congenital Heart Defect: Other, Neural Tube Defect: Other, Hemoglobinopathy Or Carrier: Other, Cystic Fibrosis: Other, Chromosome Abnormality: Other, David-Sachs: Other, Hemophilia: Other, Intellectual Disability/Autism: Other, Recurrent Loss/Stillbirth: Other, Other Structural Defect: Other, Other Genetic Disease: Other, Maternal Metabolic Disorder: Other Infection History: Live with someone with TB or Exposed to TB: No, Patient or Partner has history of Genital Herpes: No, Rash or Viral illness since last mentrual period: No, Prior GBS-Infected child: No, History of STD: No, HIV Infection: No, History of Hepatitis: No, Recent travel outside of : No, Concern for Hep exposure: No, Varicella immune: Yes Medical History Medical History: Positive: Pulmonary (e.g.,TB,Asthma) (Asthma), Drug/latex allergies/reactions (PCN, Erythomycin), Negative: Diabetes, Hypertension, Heart disease, Auto-immune disorder, Kidney disease/UTI, Neurologic/epilepsy, Psychiatric, Depression/ depression, Hepatitis/liver disease, Varicosities/phlebitis, Thyroid dysfunction, Trauma/domestic violence, History of blood transfusions, D (Rh) Sensitized, Seasonal allergies, Breast, 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, Operations/hospitalizations, Anesthetic complications, History of abnormal pap, Uterine anomaly/chuckie, Infertility, Anti-retroviral treatment, Relevant family history, Other ACOG First Trimester First Trimester: Desire for , Alcohol, Tobacco Cessation, Illicit/Recreational Drug/Substance Use, Intimate Partner Violence, Barriers to care, Unstable Housing, Communication Barriers, Environmental/Work Hazards, Anticipated Course of Care, Nurtrition and weight gain, Toxoplasmosis Precations, Use of Any medications, Sexual activity, Exercise, Dental Care, Sauna/Hot tub use, Seat Belt use, Childbirth classes/Hospital facilities, , Travel, Indications for US and Screening for Aneuploidy ROS Const Reports system reviewed and no additional complaints, except as docu, Reports fatigue, Denies fever(s) Eyes Reports system reviewed and no additional complaints, except as docu ENT Reports system reviewed and no additional complaints, except as docu Card Denies chest pain, Denies shortness of breath Resp Reports system reviewed and no additional complaints, except as docu, Denies cough, Denies shortness of breath GI Denies abdominal pain, Reports nausea Reports system reviewed and no additional complaints, except as docu Musc Reports system reviewed and no additional complaints, except as docu Skin/Breast Reports system reviewed and no additional complaints, except as docu, Reports breast pain Neuro Yes system reviewed and no additional complaints, except as docu Psych Reports system reviewed and no additional complaints, except as docu Endo Reports system reviewed and no additional complaints, except as docu, Reports fatigue Rigoberto/Lymph Reports system reviewed and no additional complaints, except as docu Aller/Immun Reports system reviewed and no additional complaints, except as docu Assessment Plan Problems 1. Asthma J45.909 singular, ProAir 2. Supervision of normal first Z34. ALVAREZ 07/17/2020 Spouse: Trang 3. Z34 discussed genetic, carrier and NTD Plan Patient oriented to practice and discussed care expectations and screenings. ACOG book offered to patient. Discussed routine and specially indicated labs if needed- patient consents to testing. see problem list details for plan information. Optional screening including carrier screenings, neural tube defect screening, sequential screening, and NIPT screening offered to patient and patient chose: desires Medications New: promethazine 12.5 mg PO TID PRN 60 tabs 1RF nausea and vomiting Coding Level of Care Code OB Routine Diagnoses Asthma J45.909 Supervision of normal first Z34. 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 [place] [address] OFFICE VISIT Date of Service: 07/29/19 MR#: [id number] Acct: [id number] Name: PRISCILA RICHARDSON Rep #: [id number] : 1985 Provider: Sonya Benoit MD Age/Sex: 34/F Location: [facility] [place] Status: Signed Intake Vital Signs07/29/19 Body Mass Index (BMI) 21.8 07/29/19 Height 5 ft 5 in 07/29/19 Weight: 11 lb 07/29/19 Body Mass Index (BMI) 1.8 07/29/19 Blood Pressure 114/62 Intake Visit Reasons: ANNUAL EXAM Chief Complaint: est annual Pleating Supervisor Required: No Is patient in pain?: No Allergies amoxicillin Allergy (Mild, Verified 07/29/19 09:50) Vomiting erythromycin base Allergy (Mild, Verified 07/29/19 09:50) Vomiting Medications albuterol sulfate HFA 90 mcg/actuation aerosol inhaler 1 puff INHALATION Q6H 07/29/19 [History Confirmed 07/29/19] montelukast 10 mg tablet 10 mg PO QPM 07/29/19 [History Confirmed 07/29/19] Is last menstrual period known: No Post menopausal: No Patient : No : No PFSH Surgical History History of wisdom tooth extraction, class II edentulism (Acute) Family History Father auto immune disorder Social History (Updated 07/29/19 @ 10:48 by Sonya Benoit MD) Smoking Status: Never smoker alcohol intake: current details: social substance use type: does not use caffeine: Yes what type of physical activity do you participate in: walking frequency: 3-4 times per week seatbelt use: always do you feel safe at home: Yes 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 0 Elective abortions Hx Para Spontaneous abortions HPI ANNUAL EXAM: Details: PRISCILA RICHARDSON is a 34 year old who presents for annual exam.wanting to TTC Last PAP: due History of abnormal PAP: no Female Reproductive History Cycle Length: 21-35 Bleeding Duration: 4 Questions: Metorrhagia: No, Sexually active: Yes, Dyspareunia: No, PCB: No ROS Const Constitutional: Reports as per HPI; denies fatigue, increased appetite, poor appetite, weight gain or weight loss Cardio Card: Denies chest pain Resp Resp: Denies cough or dyspnea GI GI: Reports as per HPI; denies abdominal pain, bloating, constipation, nausea or vomiting : Reports as per HPI and other; denies difficulty urinating, painful urination, blood in urine, nipple discharge, pelvic pain, prolapse symptoms, urinary frequency, urinary incontinence, urinary urgency, vaginal discharge, vaginal dryness, vaginal odor or vaginal itching Skin Skin/Breast: Denies changing lesions, breast lump, breast pain, breast skin changes or nipple discharge Psych Psych: Denies anxiety or depression Exam Const General: cooperative, healthy appearing, comfortable, no acute distress, well developed, well groomed HENIA Head: normal to inspection, normocephalic Ears: hearing grossly normal bilaterally, external ears normal Nose: external nose normal Face and sinus: normal facial exam Neck Neck: normal visual inspection, full ROM, no lymphadenopathy Thyroid: thyroid normal Chest Chest palpation AND inspection: normal inspection of the chest Breast inspection: normal inspection of the breasts, normal inspection of the axillae Breast palpation: normal palpation of the breasts, normal palpation of the axillae, no axillary lymphadenopathy Resp Effort AND Inspection: normal respiratory effort GI Inspection: normal to inspection, non-distended Palpation: soft, no hepatosplenomegaly, no guarding General: bladder normal to palpation External Female Exam: normal external appearance, normal appearance of the urethra, no lesions Urethra: normal appearance of the urethra, normal palpation Speculum Exam - Vagina: normal appearance of the vagina, normal vaginal discharge Speculum Exam - Cervix: normal appearance of the cervix, no cervical discharge, no lesions, nontender Bimanual Exam- Vagina AND Uterus: normal bimanual exam, uterine size normal, bladder normal to palpation, No cervical tenderness, uterine mobility normal, uterine consistency normal, uterus non-tender, no cervical motion tenderness Bimanual Exam- Adnexa, other: normal adnexae, no adnexal masses, adnexae non-tender Skin General: no rashes or lesions noted Neuro General: alert, moves all extremities, no focal motor deficits Extrem General: normal to inspection, no pedal edema Psych Appearance: grossly normal Mental Status: mental status grossly normal Affect: normal affect Speech and Movement: speech and movement normal Attitude: cooperative Assessment AND Plan Problems 1. Encounter for gynecological examination (general) (routine) without abnormal findings Z01.419 2. Pre-conception counseling Z31.69 Plan Cervical cancer screening: pap hpv Breast cancer screening: clinical STD prevention and contraceptive options including their risks, benefits, and alternatives were reviewed with the patient and she chooses: none, preconception counseling provided discussed dysthmia- recommend counseling Encouraged maintenance of a healthy weight and active lifestyle and handout given. Calcium/vitamin D recommendations provided. Annual exam handout including recommendations for good health guidelines and basic screening information given. Problem list up to date, see problem list details for any additional plan information. follow up in one year for annual health maintenance exam or sooner if needed. Orders Orders: Coding Level of Care Code Off vis,est,prev 18-39yrs Diagnoses Encounter for gynecological examination (general) (routine) without abnormal findings Z01.419 Pre-conception counseling Z31.69 07/29/19 1049 <Electronically signed by Sonya Benoit MD> Date Sonya Benoit MD Cosigner Signature: Date (if applicable) CC: Britta Acevedo Start: 12-21-2015 End: 12-21-2015 Echocardiogram Complete Comments: See Note; NOTES: [facility] [address] [place] [place] [address] Echo Complete 12/21/15 1315 MR#: [id number] Acct: [id number] Name: PRISCILA METCALF Rep #: [id number] : 1985 30 From: Stiven Huerta MD Attending Dr: Brenda Bradley DO Status: REG CLI Ordering Dr: Brenda Bradley DO Date: 12/21/15 Location: [facility] Sex: F C Admitted: Reason For Study: SVT Procedure This was a 2D Doppler, Color Flow transthoracic echocardiogram. Exam performed in department. Left Ventricle Normal LV size. Left ventricular systolic function is normal. The estimated ejection fraction is 60 %. No regional wall motion abnormalities noted. Right Ventricle Normal RV size. Normal systolic function. Atria Normal left atrium. Normal right atrium. Mitral Valve Normal mitral valve. Mild (1+) eccentric mitral valve insufficiency. Tricuspid Valve Normal tricuspid valve. Mild (1+) tricuspid valve insufficiency. Pulmonary artery systolic pressure is 21 mmHg. Aortic Valve Normal aortic valve. Trisinus/trileaflet aortic valve. Pulmonic Valve Normal pulmonic valve. Mild (1+) pulmonic valve insufficiency. Great Vessels Normal aortic root. The pulmonary artery is normal size. Normal inferior vena cava. Pericardium/Pleural No pericardial effusion. MMode/2D Measurements AND Calculations LVIDd: 4.3 cm IVSd: 0.71 cm Ao root diam: 2.1 cm LVIDs: 2.5 cm LVPWd: 0.71 cm LA dimension: 3.2 cm RVDd: 2.5 cm FS: 41.9 % LAV(MOD-bp): 20.3 ml LA A4 area: 11.0 cm2 RA A4 area: 6.9 cm2 LAV(MOD-bp) Indexed: 12.4 ml/m2 LAV(MOD-sp2): 17.9 ml LAV(MOD-sp4): 21.1 ml Doppler Measurements AND Calculations MV E max yury: 86.8 cm/sec Lat Peak E' Yury: 19.4 cm/sec Med Peak E' Yury: 14.9 cm/sec MV A max yury: 54.2 cm/sec E/E' lat: 4.5 E/E' med: 5.8 MV E/A: 1.6 Ao V2 max: 140.7 cm/sec LV V1 max: 123.1 cm/sec PA V2 max: 129.9 cm/sec Ao max P.9 mmHg LV V1 max P.1 mmHg TR max yury: 206.7 cm/sec TR max P.1 mmHg Interpretation Summary Normal LV size. Left ventricular systolic function is normal. The estimated ejection fraction is 60 %. Mild (1+) eccentric mitral valve insufficiency. Mild (1+) tricuspid valve insufficiency. Structurally normal valves. Ordering Physician: Brenda Bradley Performed By: Marga Casarez RDCS 12/21/151701 Date Stiven Huerta MD CC: Brenda Bradley DO Date Dictated: 12/21/15 1315 Date Transcribed: 12/21/151701 Plater Apprentice: Signed Brenda A Fast Work Phone: Start: 12-04-2015 End: 12-04-2015 Ecg routine ecg w/least 12 lds w/i&r [MEASUREMENTS ANALYSIS] Date of Test: 12/04/2015 12:20:06; Heart Rate: 54; IN Interval: 142; QRS: 84; QT Interval: 410; Corrected QT Interval (QTc): 400; P Wave [place]: 44; QRS Wave [place]: 57; T Wave [place]: 58; Blood Pressure: 100/78 [ECG DIAGNOSTIC STATEMENTS] Date of Test: 12/04/2015 12:20:06; Summary: Sinus Bradycardia WITHIN NORMAL LIMITS Brenda Patton Fast Work Phone: Plan of Treatment Date Care Activity Detail Author Start: 06-30-2017 End: 06-30-2017 Bacteria genital culture *CUV - Culture, VAG/CX [facility] Start: 06-30-2017 End: 06-30-2017 Appointment Appointment [facility] Start: 12-13-2016 Procedure Education Eprescribed prescriptions (G8553) [facility] Work Phone: Start: 12-13-2016 Provider Instructions for Treatment Follow up if no improvement or if symptoms worsen [facility] Work Phone: Start: 01-08-2016 Procedure Education Eprescribed prescriptions (G8553) [facility] Work Phone: Start: 12-04-2015 Procedure Education Eprescribed prescriptions (G8553) [facility] Work Phone: Start: 08-12-2015 Provider Instructions for Treatment Follow up if no improvement or if symptoms worsen [facility] Work Phone: Start: 01-16-2015 Blood count manual cell count each CBC WITH MANUAL DIFF (60608) [facility] Work Phone: Start: 01-16-2015 Assay of thyroid stimulating hormone tsh TSH (49860) [facility]; [facility] Work Phone: Start: 01-16-2015 TSH Qn TSH (27535) [facility] Work Phone: Start: 01-16-2015 Comprehensive metabolic panel Metabolic Panel, Comprehensive (79120) [facility] Work Phone: Start: 01-16-2015 Lipid panel Lipid Panel (42736) [facility] Work Phone: Start: 06-16-2014 Provider Instructions for Treatment Follow up if no improvement or if symptoms worsen [facility] Work Phone: Start: 05-13-2014 Provider Instructions for Treatment Follow up if no improvement or if symptoms worsen [facility] Work Phone: Start: 04-02-2014 Procedure Education Eprescribed prescriptions (G8553) [facility] Work Phone: Start: 03-21-2014 Fibrin dgradj products d-dimer quantitative D-Dimer (20398) [facility] Work Phone: Immunizations Immunization Date Immunization Notes Care Provider Angel allen 01-10-2007 human papilloma viru s vaccine, quadrivalent Britta Curtis [facility] Work Phone: Payers Date Payer Category Payer Policy ID Unknown Social History Date Type Detail Facility Caffeine Use Caffeine Use [facility] Work Phone: Instructions Note Date & Type Note Facility [facility]; [facility] Work Phone: Family History Unknown Family Member Name Dates Details Brother 1 Comments:asthma Status:Active Father Comments:In good health Status:Active Mother Comments:Hyperlipidemia, Kuldeep ign HTN Status:Active Sister 1 Comments:Allergies & anxiety Status:Active Unknown Family Member Name Dates Details Brother 1 Comments:asthma Status:Active Father Comments:In good health Status:Active Mother Comments:Hyperlipidemia, Kuldeep ign HTN Status:Active Sister 1 Comments:Allergies & anxiety Status:Active Instructions Name Dates Details How to access health informa tion online Indication:UTI symptoms Start:13-Dec-2016 Instruction Type:Patient Education How to access health informa tion online - Detail Indication:UTI symptoms Start:13-Dec-2016 Instruction Type:Patient Education Patient Instructions Indication:UTI symptoms Start:13-Dec-2016 Instruction Type:Provider Instructions for Treatment How to access health informa tion online Indication:Paroxysmal supraventricular tachycardia seen on panel monitor Start:08-Jan-2016 Instruction Type:Patient Education How to access health informa tion online - Detail Indication:Paroxysmal supraventricular tachycardia seen on panel monitor Start:08-Jan-2016 Instruction Type:Patient Education Patient Instructions Indication:Paroxysmal supraventricular tachycardia seen on panel monitor Start:08-Jan-2016 Instruction Type:Provider Instructions for Treatment How to access health informa tion online Indication:Raynaud's phenomenon without gangrene Start:04-Dec-2015 Instruction Type:Patient Education How to access health informa tion online - Detail Indication:Raynaud's phenomenon without gangrene Start:04-Dec-2015 Instruction Type:Patient Education Patient Instructions Indication:Raynaud's phenomenon without gangrene Start:04-Dec-2015 Instruction Type:Provider Instructions for Treatment Patient Instructions Indication:Encounter for pre-employment examination Start:23-Feb-2015 Instruction Type:Provider Instructions for Treatment Patient Instructions Indication:Possible exposure to STD Start:24-Oct-2014 Instruction Type:Provider Instructions for Treatment How to access health informa tion online Indication:Encounter for pre-employment examination Start:02-Apr-2014 Instruction Type:Patient Education How to access health informa tion online - Detail Indication:Encounter for pre-employment examination Start:02-Apr-2014 Instruction Type:Patient Education Patient Instructions Indication:Encounter for pre-employment examination Start:02-Apr-2014 Instruction Type:Provider Instructions for Treatment How to access health informa tion online Indication:Mild intermittent asthma with acute exacerbation Start:21-Mar-2014 Instruction Type:Patient Education How to access health informa tion online - Detail Indication:Mild intermittent asthma with acute exacerbation Start:21-Mar-2014 Instruction Type:Patient Education Patient Instructions Indication:Mild intermittent asthma with acute exacerbation Start:21-Mar-2014 Instruction Type:Provider Instructions for Treatment Patient Instructions Indication:Encounter for pre-employment examination Start:22-May-2013 Instruction Type:Provider Instructions for Treatment Patient Instructions Indication:Acute sinusitis Start:12-Jul-2012 Instruction Type:Provider Instructions for Treatment Additional Source Comments FOR RECORDS PERTAINING TO PATIENTS WHO ARE OR HAVE BEEN ENROLLED IN A CHEMICAL DEPENDENCY/SUBSTANCEABUSE PROGRAM, SOME INFORMATION MAY BE OMITTED. This clinical summary was aggregated from multiple sources. Caution should be exercised in using it in the provision of clinical care. This summary normalizes information from multiple sources, and as a consequence, information in this document may materially change the coding, format and clinical context of patient data. In addition, data may be omitted in some cases. CLINICAL DECISIONS SHOULD BE BASED ON THE PRIMARY CLINICAL RECORDS. [facility]. provides no warranty or guarantee of the accuracy or completeness of information in this document.
== END | disposition home or self-care (01) ==
LOC: MTRAD 16:04
PROVIDERS: PCP Family Medicine; Referring Provider Family Medicine; Visit Provider Family Medicine
DX: M54.2 Cervicalgia (principal)
CPT/HCPCS: 72050

== ENCOUNTER 2023-11-27 16:00 | Outpatient (RCR) | payer OTHER, SELFPAY ==
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
--- NOTE | 2023-12-27 07:18 | HP.PT.NRP ---
Patient Information Patient Information: JEANETH RICHARDSON was seen in my office for initial evaluation on 11/13/23. The following Plan of Care was established for this patient: POC Established Initial Frequency: 2x /Week Initial Duration: 2-4 Weeks Anticipated Interventions Patient/Client Instruction: Educate patient on: Condition and Plan of Care For the Purpose of:: To improve self management Therapeutic Exercise to Include: Strength training, Endurance training, Body mechanics, Postural training, Active ROM and Scapular Strength/Stabilization For the Purpose of:: To decrease pain, To increase ROM and To improve muscle performance and motor function Cryotherapy (ice pack, ice massage): Yes Thermo therapy (hot pack): Yes For the Purpose of:: To decrease pain Last Seen Last Seen: This patient was last seen in our office 11/30/23. Pertinent comments regarding their Physical therapy will appear below: CAMACHO PT. Pt called in and cancelled and said that she was all better At this point I will be discontinuing this patient from physical therapy. I would be happy to see this patient again in the future if found appropriate by the physician. Thank you! Louisa Gross, NICOLAS Balance/Gait/Functional tests Balance/Special Test Scores Oswestry Neck Score: 9
== END 2023-11-27 19:00 | disposition home or self-care (01) ==
LOC: PT 16:00
PROVIDERS: PCP Family Medicine; Referring Provider Family Medicine; Visit Provider Family Medicine
DX: M54.2 Cervicalgia (principal); M25.512 Pain in left shoulder
CPT/HCPCS: 97110; 97140; 97161

== ENCOUNTER → 2024-06-07 | Outpatient (CLI) | payer OTHER, SELFPAY ==
--- OUTSIDE RECORDS SUMMARY | 2024-06-07 15:23 | XMS RPT_ITS | CCD ---
Author Organization [facility] Care Team Providers Care Slp Name Role Phone Sonya Benoit MD Unavailable [phone] Curtis Britta Unavailable Fast, Brenda A Unavailable Ahsan, Louisa Unavailable Unavailable Kate Fischer Unavailable Unavailable Ale Adames Unavailable Unavailable Unavailable Unavailable Curtis GEORGES Britta Unavailable Fast DO, Brenda A Unavailable Slarb MONO, Louisa Unavailable Unavailable Kate Fischer Unavailable Unavailable Ale Adames Unavailable Unavailable Unavailable Unavailable Allergies Allergy Classification Reported Allergen(s) Allergy Type Date of Onset Reaction(s) Facility (8 sources) amoxicillin; Translations: [Amoxil *PENICILLINS*] Drug Allergy 06-30-2017 Nausea [facility] Comment on above: Nausea & diarrhea (5 sources) erythromycin Drug Allergy 06-30-2017 Nausea [facility] Medications Completed/Discontinued Medications Medication Drug Class(es) Dates Sig (Normalized) Sig (Original) [id number] 200 actuat albuterol 0.09 mg/actuat metered dose inhaler (5 sources) beta2-Adrenergic Agonist Start: 08-12-2015 End: 12-13-2016 ProAir HFA 108 (90 Base) MCG/ACT Inhalation Aerosol Solution 2 puffs Aerosol Soln qid, prn for 0 days Quantity: 1 {Inhaler} Refills: 1 Ordered: 13-Dec-2016 Slarb SYSTEMS ENGINEERING MANAGER, Louisa Start : 12-Aug-2015 End : 13-Dec-2016 Discontinued Start: 08-12-2015 End: 12-13-2016 ProAir HFA 108 (90 Base) MCG /ACT Inhalation Aerosol Solution 2 puffs Aerosol Soln qid, prn for 0 days Quantity: 1 {Inhaler} Refills: 1 Ordered: 13-Dec-2016 Louisa Foreman LPN Start : 12-Aug-2015 End : 13-Dec-2016 Discontinued Start: 09-08-2008 End: 09-24-2008 ALBUTEROL SULFATE HFA, 108 ( 90 Base)MCG/ACT (Inhalation Aerosol Solution) 2 puffs Aerosol Soln qid, prn for 0 days Quantity: 1 {Aerosol_Soln} Refills: 3 Ordered: 08-Sep-2008 Carlie Alfredo Start : 08-Sep-2008 End : 24-Sep-2008 Inactive End: 09-24-2008 take 2 puff(s) by inhalation four times daily as needed ALBUTEROL SULFATE HFA, 108MCG/ACT (Inhalation Aerosol Soln) 2 puffs qid,prn for 0 days Refills: 0 Ordered: 08-Sep-2008 Carlie Alfredo End : 24-Sep-2008 Inactive ALBUTEROL SULFATE HFA, 108 (90 Base)MCG/ACT (Inhalation Aerosol Solution) (2 sources) Start: 09-08-2008 End: 09-24-2008 ALBUTEROL SULFATE HFA, 108 (90 Base)MCG/ACT (Inhalation Aerosol Solution) 2 puffs Aerosol Soln qid, prn for 0 days Quantity: 1 {Aerosol_Soln} Refills: 3 Ordered: 08-Sep-2008 Carlie Alfredo Start : 08-Sep-2008 End : 24-Sep-2008 Inactive ALBUTEROL SULFATE HFA, 108MCG/ACT (Inhalation Aerosol Soln) (2 sources) End: 09-24-2008 take 2 puff(s) by inhalation four times daily as needed ALBUTEROL SULFATE HFA, 108MCG/ACT (Inhalation Aerosol Soln) 2 puffs qid,prn for 0 days Refills: 0 Ordered: 08-Sep-2008 Carlie Alfredo End : 24-Sep-2008 Inactive amitriptyline hydrochloride 10 mg oral tablet (3 sources) Tricyclic Antidepressant Start: 06-30-2010 End: 02-18-2011 take 1-2 tablets by mouth once at bedtime as needed for headache AMITRIPTYLINE HCL, 10MG (Oral Tablet) 1-2 Tablet q hs, prn for headaches for 0 days Quantity: 60 {Tablet} Refills: 0 Ordered: 18-Feb-2011 Ale Kim RN Start : 30-Jun-2010 End : 18-Feb-2011 Inactive amoxicillin 875 mg oral tablet (3 sources) Penicillin-class Antibacterial Start: 09-03-2010 End: 02-18-2011 take 1 tablet by mouth twice daily AMOXICILLIN, 875MG (Oral Tablet) 1 Tablet bid for 0 days Quantity: 20 {Tablet} Refills: 0 Ordered: 18-Feb-2011 lAe Kim RN Start : 03-Sep-2010 End : 18-Feb-2011 Inactive atenolol 25 mg oral tablet (3 sources) beta-Adrenergic Bill Start: 06-30-2010 End: 08-10-2010 take 0.5 tablet by mouth once daily ATENOLOL, 25MG (Oral Tablet) 1/2 Tablet qd for 0 days Quantity: 30 {Tablet} Refills: 1 Ordered: 10-Aug-2010 Start : 30-Jun-2010 End : 10-Aug-2010 Inactive azithromycin 250 mg oral tablet (3 sources) Macrolide Antimicrobial Start: 03-21-2014 End: 04-02-2014 ZITHROMAX Z-SUSHILA, 250MG (Oral Tablet) 1 Tablet TAD for 0 days Quantity: 1 {Package} Refills: 0 Ordered: 02-Apr-2014 Chantal Go CMA Start : 21-Mar-2014 End : 02-Apr-2014 Inactive 120 actuat beclomethasone dipropionate 0.08 mg/actuat metered dose inhaler (3 sources) Corticosteroid Start: 08-12-2015 End: 08-12-2015 QVAR, 80MCG/ACT (Inhalation Aerosol Solution) 1 (one) Aerosol Soln Aerosol Soln 2 puffs in am for 0 days Quantity: 1 {Box} Refills: 0 Ordered: 12-Aug-2015 Alivia Salinas Start : 12-Aug-2015 End : 12-Aug-2015 Discontinued biotin 1 mg oral tablet (8 sources) Start: 06-30-2017 BIOTIN 1000 MCG TABS BIOTIN [id number] Sonya Benoit MD End: 08-12-2015 take 1 capsule by mouth once daily BIOTIN, 10MG (PO Cap) 1 cap qd for 0 days Refills: 0 Ordered: 12-Aug-2015 SlaLouisa morris LPN End : 12-Aug-2015 Discontinued Comments: This order discontinued per [facility]. Comment on above: This order discontin ued per [facility]. cephalexin 500 mg oral capsule (3 sources) Cephalosporin Antibacterial Start: 02-19-20 End: 07-15-20 11 take 1 capsule by mouth three times daily at mealtime KEFLEX, 500MG (Oral Capsule) 1 Capsule tid with food for 0 days Quantity: 30 {Capsule} Refills: 0 Ordered: 15-Jul-2011 Start : 18-Feb-2011 End : 15-Jul-2011 Inactive clarithromycin 500 mg oral tablet (12 sources) Macrolide Antimicrobial Start: 06-16-20 14 End: 06-26-20 14 take 2 tablets by mouth once daily CLARITHROMYCIN, 500MG (Oral Tablet) 2 (two) Tablet daily for 10 days Quantity: 20 {Tablet} Refills: 0 Ordered: 16-Jun-2014 Alivia Salinas Start : 16-Jun-2014 End : 26-Jun-2014 Inactive Start: 08-03-2012 End: 08-13-2012 take 2 tablets by mouth once daily BIAXIN XL PAC, 500MG (Oral Tablet Extended Release 24 Hour) 2 (two) Tablet ER 24HR daily for 10 days Quantity: 20 {Tablet_ER_24HR} Refills: 0 Ordered: 03-Aug-2012 Alivia Salinas Start : 03-Aug-2012 End : 13-Aug-2012 Inactive Start: 08-10-2010 End: 08-24-2010 take 1 tablet by mouth twice daily BIAXIN, 500MG (Oral Tablet) 1 Tablet bid for 14 days Quantity: 28 {Tablet} Refills: 0 Ordered: 10-Aug-2010 Alivia Salinas Start : 10-Aug-2010 End : 24-Aug-2010 Inactive Start: 06-17-2008 End: 09-24-2008 take 2 tablets by mouth once daily BIAXIN XL, 500MG (Oral Tablet Extended Release 24 Hour) 2 (two) Tablet ER 24HR qd for 0 days Quantity: 20 {Tablet_ER_24HR} Refills: 0 Ordered: 17-Jun-2008 Carlie Alfredo Start : 17-Jun-2008 End : 24-Sep-2008 Inactive clotrimazole 10 mg oral lozenge (3 sources) Azole Antifungal Start: 08-12-2015 End: 08-22-2015 CLOTRIMAZOLE, 10MG (Mouth/Throat Teri) 1 (one) Teri 5x daily for 10 days Quantity: 50 {Teri} Refills: 0 Ordered: 12-Aug-2015 Alivia Slainas Start : 12-Aug-2015 End : 22-Aug-2015 Inactive CECILIO 28, 3-0.03MG (Oral Tablet) (3 sources) Progestin, Estrogen End: 05-22-2013 take 1 tablet by mouth once daily CECILIO 28, 3-0.03MG (Oral Tablet) 1 tab qd for 0 days Refills: 0 Ordered: 22-May-2013 Donavan PIETROChantal End : 22-May-2013 Inactive esomeprazole 40 mg delayed release oral capsule (3 sources) Proton Pump Inhibitor Start: 07-15-2011 End: 10-24-2011 take 1 capsule by mouth once daily as needed NEXIUM, 40MG (Oral Capsule Delayed Release) 1 (one) Capsule DR qd, prn for 0 days Quantity: 30 {Capsule_DR} Refills: 3 Ordered: 24-Oct-2011 Start : 15-Jul-2011 End : 24-Oct-2011 Inactive 12 hr fexofenadine hydrochloride 60 mg / pseudoephedrine hydrochloride 120 mg extended release oral tablet (3 sources) alpha-Adrenergic Agonist, Histamine-1 Receptor Antagonist Start: 08-10-2010 End: 02-18-2011 take 60-120 mg by mouth twice daily as needed LUIS MIGUEL-D 12 HOUR, 60-120MG (Oral Tablet Extended Release 12 Hour) 1 (one) Tablet ER 12HR bid prn for 0 days Refills: 0 Ordered: 18-Feb-2011 Ale Kim RN Start : 10-Aug-2010 End : 18-Feb-2011 Inactive fluticasone propionate 0.05 mg/actuat metered dose nasal spray (9 sources) Corticosteroid Start: 06-16-2014 End: 02-23-2015 FLONASE, 50MCG/ACT (Nasal Suspension) 2 (two) Puff(s) daily for 0 days Quantity: 1 {Bottle} Refills: 0 Ordered: 23-Feb-2015 Kate Fischer Start : 16-Jun-2014 End : 23-Feb-2015 Discontinued Start: 07-15-2011 End: 05-22-2013 FLOVENT HFA, 110MCG/ACT (Inh alation Aerosol) 2 (two) Aerosol qd for 90 days Quantity: 3 {Aerosol} Refills: 3 Ordered: 22-May-2013 Chantal Go CMA Start : 15-Jul-2011 End : 22-May-2013 Inactive Start: 11-05-2009 End: 12-05-2009 take 2 spray(s) nasal route once daily VERAMYST, 27.5MCG/SPRAY (Nasal Suspension) 2 sprays Suspension each nostril qd for 30 days Refills: 0 Ordered: 21-May-2010 Britta Acevedo DO, DO, Kathleen Start : 05-Nov-2009 End : 05-Dec-2009 Inactive Comments: samples given Comment on above: samples given homatropine / HYDROcodone (3 sources) Opioid Agonist, Cholinergic Muscarinic Agonist Start: 11-09-2009 End: 11-19-2009 HYCODAN, 5-1.5MG/5ML (Oral Syrup) 1 (one) Syrup q 6 hr prn for 10 days Quantity: 90 {Milliliter} Refills: 0 Ordered: 21-May-2010 Britta Acevedo DO, DO, Kathleen Start : 09-Nov-2009 End : 19-Nov-2009 Inactive Comments: bradley Start: 11-09-2009 End: 11-19-2009 HYCODAN, 5-1.5MG/5ML (Oral S yrup) 1 (one) Syrup q 6 hr prn for 10 days Quantity: 90 {Milliliter} Refills: 0 Ordered: 21-May-2010 Britta Acevedo DO, DO, Kathleen Start : 09-Nov-2009 End : 19-Nov-2009 Inactive Comments: ninety Comment on above: ninety levoFLOXacin 500 mg oral tablet (3 sources) Quinolone Antimicrobial Start: 08-12-20 15 End: 08-22-19 16 take 1 tablet by mouth once daily LEVAQUIN, 500MG (Oral Tablet) 1 (one) Tablet qd for 10 days Quantity: 10 {Tablet} Refills: 0 Ordered: 12-Aug-2015 PamelaAlivia campo Start : 12-Aug-2015 End : 22-Aug-2015 Inactive levonorgestrel 0.466144 mg/hr intrauterine system (8 sources) Progestin, Progestin-containing Intrauterine Device Start: 06-30-20 MIRENA (52 MG) 20 MCG/24HR IUD LEVONORGESTREL [id number] Sonya Benoit MD MIRENA, 20MCG/24 HR (Intrauterine Intrauterine Device) uad (20 MCG/24HR) Active loratadine 10 mg oral capsule (3 sources) Start: 06-16-2014 End: 02-23-2015 take 1 capsule by mouth once daily CLARITIN, 10MG (Oral Capsule) 1 (one) Capsule Capsule daily for 0 days Quantity: 30 {Capsule} Refills: 0 Ordered: 23-Feb-2015 Kate Fischer Start : 16-Jun-2014 End : 23-Feb-2015 Discontinued methylPREDNISolone 4 mg oral tablet (3 sources) Corticosteroid Start: 03-21-2014 End: 04-02-2014 take 1 tablet by mouth at mealtime MEDROL (SUSHILA), 4MG (Oral Tablet) 1 (one) Tablet tad for 0 days Quantity: 1 {Package} Refills: 0 Ordered: 02-Apr-2014 Chantal Go CMA Start : 21-Mar-2014 End : 02-Apr-2014 Inactive Comments: with food Comment on above: with food 14 actuat mometasone furoate 0.22 mg/actuat dry powder inhaler (9 sources) Corticosteroid Start: 08-12-2015 End: 12-04-2015 take 1-2 puff(s) by inhalation twice daily ASMANEX 14 METERED DOSES, 220MCG/INH (Inhalation Aerosol Powder Breath Activated) 1-2 Puff bid for 0 days Quantity: 2 {Inhaler} Refills: 0 Ordered: 04-Dec-2015 Kate Fischer Start : 12-Aug-2015 End : 04-Dec-2015 Discontinued Start: 04-02-2014 End: 05-13-2014 take 2 puff(s) by inhalation once daily ASMANEX 120 METERED DOSES, 220MCG/INH (Inhalation Aerosol Powder Breath Activated) 2 (two) Puff Puff daily for 0 days Quantity: 1 {Inhaler} Refills: 3 Ordered: 13-May-2014 Chantal Go CMA Start : 02-Apr-2014 End : 13-May-2014 Inactive Start: 06-22-2012 End: 07-12-2012 NASONEX, 50MCG/ACT (Nasal Suspension) 1 Suspension bid for 0 days Quantity: 14 {Suspension} Refills: 0 Ordered: 12-Jul-2012 VEGA Gutierrez LPN Start : 22-Jun-2012 End : 12-Jul-2012 Inactive montelukast 10 mg oral tablet (3 sources) Leukotriene Receptor Antagonist Start: 04-06-2015 End: 08-12-2015 take 1 tablet by mouth once daily SINGULAIR, 10MG (Oral Tablet) 1 Tablet QD for 0 days Quantity: 30 {Tablet} Refills: 3 Ordered: 12-Aug-2015 SlaLouisa morris LPN Start : 06-Apr-2015 End : 12-Aug-2015 Discontinued MULTIPLE VITAMINS-MINERALS (5 sources) Start: 06-30-2017 take 1 tablet by mouth once daily MULTIVITAMIN WOMEN TABS One tablet by mouth daily MULTIPLE VITAMINS-MINERALS [id number] Sonya Benoit MD Multivitamin preparation (3 sources) MULTIVITAMIN (Oral Liquid) for 0 days Refills: 0 Ordered: 13-Dec-2016 Louisa Foreman LPN Active nitrofurantoin, macrocrystals 25 mg / nitrofurantoin, monohydrate 75 mg oral capsule (3 sources) Nitrofuran Antibacterial Start: 12-13-2016 End: 12-23-2016 take 1 capsule by mouth twice daily at mealtime Macrobid 100 MG Oral Capsule 1 (one) Capsule BID for 10 days Quantity: 20 {Capsule} Refills: 0 Ordered: 13-Dec-2016 Alivia Salinas Start : 13-Dec-2016 End : 23-Dec-2016 Inactive Comments: Take with food Comment on above: Take with food predniSONE 10 mg oral tablet (6 sources) Start: 08-12-2015 End: 12-04-2015 PREDNISONE, 10MG (Oral Tablet) 1 (one) Tablet 1bid x 2 days, 1 daily x 3 days, 1/2 daily x 3 for 0 days Quantity: 12 {Tablet} Refills: 0 Ordered: 04-Dec-2015 Kate Fischer Start : 12-Aug-2015 End : 04-Dec-2015 Discontinued Start: 11-05-2009 End: 11-17-2009 PREDNISONE, 20MG (Oral Table t) tad Tablet uad for 12 days Quantity: 14 {Tablet} Refills: 0 Ordered: 21-May-2010 Britta Acevedo DO, DO, Kathleen Start : 05-Nov-2009 End : 17-Nov-2009 Inactive Comments: 1 tab bid for 4 days and then 1 tab qd for 4 days then 1/2 tab for 4 days Comment on above: 1 tab bid for 4 days and then 1 tab qd for 4 days then 1/2 tab for 4 days promethazine hydrochloride 25 mg oral tablet (3 sources) Phenothiazine Start: End: take 1 tablet by mouth every six hours as needed PROMETHAZINE HCL, 25MG (Oral Tablet) 1 Tablet every 6hours prn for 0 days Quantity: 10 {Tablet} Refills: 0 Ordered: 18-Feb-2011 Ale Kim RN Start : 03-Sep-2010 End : 18-Feb-2011 Inactive 72 hr scopolamine 0.0139 mg/hr transdermal system (3 sources) Anticholinergic Start: End: SCOPOLAMINE BASE, 1.5MG (Transdermal Patch 72 Hour) 1 (one) Patch 72HR q 72 hours for 0 days Refills: 0 Ordered: 24-Sep-2008 Kate Fischer Start : 24-Sep-2008 End : 30-Jun-2010 Discontinued Comments: This order discontinued per [facility]. Comment on above: This order discontin ued per [facility]. silver sulfADIAZINE 10 mg/ml topical cream (3 sources) Sulfonamide Antibacterial Start: End: SILVADENE, 1% (External Cream) 1 Cream apply qd for 0 days Quantity: 30 {Gram(s)} Refills: 0 Ordered: 15-Jul-2011 Start : 18-Feb-2011 End : 15-Jul-2011 Inactive spironolactone 25 mg oral tablet (5 sources) Aldosterone Antagonist Start: 017 take 1 tablet by mouth once daily ALDACTONE 25 MG TABS One tablet by mouth daily SPIRONOLACTONE [id number] Sonya Benoit MD spirulina 500 mg oral tablet (3 sources) End: take 3 tablets by mouth once daily SPIRULINA, 500MG (Oral Tablet) 3 tabs qd for 0 days Refills: 0 Ordered: 30-Jun-2010 Kate Fischer End : 30-Jun-2010 Inactive sulfamethoxazole 800 mg / trimethoprim 160 mg oral tablet (3 sources) Dihydrofolate Reductase Inhibitor Antibacterial, Sulfonamide Antimicrobial Start: 008 End: 009 take 1 tablet by mouth twice daily BACTRIM DS, 800-160MG (Oral Tablet) 1 (one) Tablet bid for 0 days Quantity: 6 {Tablet} Refills: 0 Ordered: 11-Sep-2007 Carlie Alfredo Start : 11-Sep-2007 End : 24-Sep-2008 Inactive Triamcinolone (3 sources) Corticosteroid Start: 009 End: NASACORT AQ, 55MCG/ACT (Nasal Aerosol Solution) 2 (two) Aerosol Soln qd for 0 days Refills: 0 Ordered: 30-Jun-2010 Lukassabagasper Kate Start : 10-Nov-2008 End : 30-Jun-2010 Inactive Problems Active Problems Problem Classification Problem Date Documented Date Episodic/Chronic Abdominal pain (12 sources) Epigastric pain; Translations: [Tenderness of right upper quadrant of abdomen] Resolved: 5 10-24-2014 Episodic Acute and chronic tonsillitis (4 sources) Acute tonsillitis; Translations: [Acute tonsillitis] Resolved: 2 07-24-2015 Episodic Acute bronchitis (9 sources) Acute bronchitis; Translations: [Acute bronchitis] Resolved: 0 07-12-2012 Episodic Administrative/social admission (4 sources) Patient encounter status; Translations: [Encounter for pre-employment examination] 12-13-2016 Episodic Anxiety disorders (9 sources) Anxiety; Translations: [Anxiety] 12-13-2016 Chronic Comment on above: chronic stable-ora nue present regimen Asthma (20 sources) Asthma; Translations: [Mild intermittent asthma] Onset: 7 06-30-2017 Chronic Comment on above: chronic stable-ora nue present regimen Asthma (6 sources) Asthma Menjivar (4 sources) Menjivar of multiple specified sites, unspecified degree; Translations: [BURN, MULTIPLE SITES, UNSPECIFIED DEGREE] Resolved: 2 07-12-2012 Episodic Cardiac dysrhythmias (8 sources) Supraventricular tachycardia; Translations: [Paroxysmal supraventricular tachycardia] 12-13-2016 Chronic Cardiac dysrhythmias (6 sources) Palpitations; Translations: [Palpitations] Resolved: 2 06-30-2015 Episodic Conditions associated with dizziness or vertigo (6 sources) Benign paroxysmal positional vertigo; Translations: [Benign paroxysmal positional vertigo] 12-13-2016 Episodic Digestive congenital anomalies (4 sources) Other congenital anomalies of tongue; 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, CONGENITAL, 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 Disorders of lipid metabolism (9 sources) Hypertriglyceridemia; Translations: [Hyperglyceridemia] 12-13-2016 Chronic Comment on above: better Fluid and electrolyte disorders (6 sources) Dehydration; Translations: [Dehydration] Resolved: 5 02-23-2015 Episodic Comment on above: after marathon Gastritis and duodenitis (6 sources) Gastritis; Translations: [Acute gastritis] Resolved: 0 07-01-2015 Episodic Genitourinary symptoms and ill-defined conditions (8 sources) Urinary symptoms ; Translations: [Increased frequency of urination] 12-13-2016 Episodic Headache; including migraine (15 sources) Headache; Translations: [Headache] Resolved: 5 02-23-2015 Episodic Immunizations and screening for infectious disease (8 sources) Need for prophylactic vaccination and inoculation against other specified disease; Translations: [Patient encounter status] Resolved: 5 07-03-2015 Episodic Mycoses (6 sources) Candidiasis; Translations: [Candidiasis] Resolved: 6 12-04-2015 Episodic Nausea and vomiting (4 sources) Nausea; Translations: [Nausea] Resolved: 2 07-23-2015 Episodic Other circulatory disease (4 sources) Raynaud's phenomenon ; Translations: [Raynaud's phenomenon without gangrene] 12-13-2016 Chronic Other circulatory disease (5 sources) Abnormal chest sounds; Translations: [Abnormal lung sounds] Resolved: 0 06-30-2015 Episodic Other connective tissue disease (4 sources) Cramp in lower limb; Translations: [Leg cramps] 12-13-2016 Episodic Comment on above: occured once with ru nning 3 weeks agoon BC pills Other ear and sense organ disorders (4 sources) Infection of external ear; Translations: [Infection of ear, external, right] Resolved: 5 10-24-2014 Episodic Comment on above: clarithromycin Other ear and sense organ disorders (5 sources) Bullous myringitis; Translations: [Myringitis, bullous] 12-13-2016 Episodic Other gastrointestinal disorders (12 sources) Irritable bowel syndrome; Translations: [Irritable bowel syndrome] 12-13-2016 Chronic Other infections; including parasitic (5 sources) Relapsing fever, unspecified; Translations: [RELAPSING FEVER NOS] Resolved: 0 07-12-2012 Episodic Other lower respiratory disease (18 sources) Cough; Translations: [Cough] Resolved: 6 02-23-2015 Episodic Comment on above: cough out of ordinar y for her, Other lower respiratory disease (12 sources) Wheezing; Translations: [Wheezing] Resolved: 5 02-23-2015 Episodic Other screening for suspected conditions (not mental disorders or infectious disease) (5 sources) Liver function tests abnormal; Translations: [Abnormal LFTs] 12-13-2016 Episodic Comment on above: better Other upper respiratory disease (4 sources) Pain in throat Episodic Other upper respiratory disease (6 sources) Nasal congestion; Translations: [Nasal congestion] Resolved: 5 10-24-2014 Episodic Other upper respiratory infections (3 sources) Sinusitis; Translations: [Sinusitis] Resolved: 3 05-23-2013 Chronic Other upper respiratory infections (20 sources) Acute sinusitis; Translations: [Sore throat symptom] Onset: 0 Resolved: 5 02-23-2015 Episodic Comment on above: pt states not pregna nt. will continue steriod nasal. otc antihistamine Otitis media and related conditions (8 sources) Otitis; Translations: [Dysfunction of eustachian tube] Resolved: 6 12-04-2015 Episodic Residual codes; unclassified (3 sources) Family history of diabetes mellitus; Translations: [Family history of diabetes mellitus] Episodic Residual codes; unclassified (4 sources) Influenza-like symptoms; Translations: [Flu-like symptoms] Resolved: 6 12-04-2015 Episodic Residual codes; unclassified (3 sources) FH: Diabetes mellitus; Translations: [Family history of diabetes mellitus] 12-13-2016 Episodic Residual codes; unclassified (3 sources) Finding of body mass index; Translations: [BMI between 19-24,adult] 12-13-2016 Episodic Residual codes; unclassified (3 sources) Non-smoker; Translations: [Non-smoker] 12-13-2016 Episodic Skin and subcutaneous tissue infections (4 sources) Cellulitis and abscess of lower limb; Translations: [Cellulitis and abscess of leg] Resolved: 2 07-24-2015 Episodic Unclassified (5 sources) Gynecologic examination ; Translations: [Encounter for gynecological examination (general) (routine) with abnormal findings] Onset: 7 06-30-2017 Unclassified (20 sources) Unclassified (6 sources) family hx of high chol 12-13-2016 Unclassified (9 sources) raynauds 12-13-2016 Unclassified (6 sources) Hypertriglycerides (272.1) Unclassified (4 sources) Paroxysmal supraventricular tachycardia seen on monitoring manager Unclassified (6 sources) Hyperglyceridemia Unclassified (2 sources) Raynaud's phenomenon without gangrene Unclassified (2 sources) Possible exposure to STD Urinary tract infections (4 sources) Acute urinary tract infection; Translations: [Urinary tract infection, acute] 12-13-2016 Episodic Viral infection (9 sources) Viral disease; Translations: [Infectious mononucleosis] Resolved: 5 06-29-2015 Episodic Past or Other Problems Problem Classification Problem [...] Results Test Name Value Interpretation Reference Range Facility Microbiology: Culture, Genit al [facility] 07-03-2017 [facility] . Invalid Interpretation Code [facility] Microbiology: (P) Culture, G enital [facility] 07-02-2017 [facility] . Invalid Interpretation Code [facility] Office Visit: Annualon 06-30 Documentation of current medications (procedure) Done Invalid Interpretation Code [facility] Fall risk assessment No Invalid Interpretation Code [facility] Tobacco smoking status NHIS Never Invalid Interpretation Code [facility] Tobacco use CPHS Never smoker Invalid Interpretation Code [facility] URINE MENDY CULTURE-IDENTIFICA [place] ([id number])Ordered By: Engine Setter on 12-13-2016 Bacteria identified Cx Nom (U) Escherichia coli Abnormal [facility] Work Phone: Comment on above: Greater than 100,000 colony forming units per mL PATIENT NOT FASTINGP ERFORMED BY: [facility] [id number] [address] RoadDublin [place] [id number] Information: SRC:FLASH Bacteria identified Cx Nom (U) Final report Abnormal [facility] Work Phone: Comment on above: PATIENT NOT FASTINGP ERFORMED BY: [facility] [id number] Mauro RoadDuUNC Health Pardee [id number] Information: SRC:FLASH Other Antibiotic [Susc] MIHEAD Normal [facility] Work Phone: Comment on above: S = Susceptible; I = Intermediate; R = Resistant P = Positive; N = Negative MICS are expressed in micrograms per mL Antibiotic RSLT#1 RSLT#2 RSLT#3 RSLT#4Amoxicillin/Clavulanic Acid SAmpicillin SCefepime SCeftriaxone SCefuroxime SCephalothin SCiprofloxacin SErtapenem SGentamicin SImipenem SLevofloxacin SNitrofurantoin SPiperacillin STetracycline STobramycin STrimethoprim/Sulfa S PATIENT NOT FASTINGP ERFORMED BY: [facility] [id number] RoadAtrium Health [place] [id number] Information: SRC:FLASH Urinalysis, Office ([id number])on 12-13-2016 Bilirubin Ql (U) Negative Normal [facility] Work Phone: Bilirubin Ql (U) Negative Normal [facility]; [facility] Work Phone: Glucose Test strip (U) [Mass/Vol] Negative Normal [facility] Work Phone: Glucose Test strip (U) [Mass/Vol] Negative Normal [facility]; [facility] Work Phone: Hemoglobin Ql (U) Hemolyzed Large Normal Co m[facility] Work Phone: Ketones Ql (U) Negative Normal [facility] Work Phone: Ketones Ql (U) Negative Normal [facility]; [facility] Work Phone: Leukocyte esterase Test strip Ql (U) Moderate Normal [facility] Work Phone: Nitrite Ql (U) Positive Normal [facility] Work Phone: Nitrite Ql (U) Positive Normal [facility]; [facility] Work Phone: pH (U) 5 [pH] Abnormal [facility] Work Phone: Protein Ql (U) Trace Normal [facility] Work Phone: Specific gravity (U) [Rel density] 1.015 1 Normal [facility] Work Phone: Urobilinogen (24H U) [Mass/Time] Normal Normal [facility] Work Phone: Office Visit: Annualon 03-14 General categories [Interpretation] of Cervical or vaginal smear or scraping by Cyto stain Normal Invalid Interpretation Code [facility] MENDY CULTURE-OTHER (75767)Ord ered By: Engine Setter on 03-11-2016 Bacteria identified Respiratory culture Nom (Unsp spec) Final report Normal [facility] Work Phone: Comment on above: PATIENT NOT FASTINGP ERFORMED BY: HARLEEN [facility] Cwepkv0515 Mauro GraftworxUNC Health Pardee [id number] Information: SRC:THRT [id number] Bacteria identified Respiratory culture Nom (Unsp spec) RRF Normal [facility] Work Phone: Comment on above: Routine respiratory beverly PATIENT NOT FASTINGP ERFORMED BY: HARLEEN [facility] Rulnto6205 Mauro TradesparqNovant Health Presbyterian [facility] [id number] Information: SRC:THRT [id number] HEPATIC FUNCTION PANEL (8007 6)Ordered By: Engine Setter on 01-05-2016 Albumin [Mass/Vol] 4.7 g/dL Normal 3.5-5.5 Compre [facility] Medicine Work Phone: Comment on above: 1 month; PATIENT NOT FASTINGPERFORMED BY: HARLEEN [facility] Ongfff9519 Mauro GraftworxUNC Health Pardee [id number] Information: [id number] ALP [Catalytic activity/Vol] 39 [iU]/L Normal 39-117 [facility] Work Phone: Comment on above: 1 month; PATIENT NOT FASTINGPERFORMED BY: HARLEEN LabCoodilia IversonShhdsa8498 Mauro [facility] [id number] Information: [id number] ALP [Catalytic activity/Vol] 39 U/L Normal 39-117 [facility]; [facility] Work Phone: Comment on above: 1 month; PATIENT NOT FASTINGPERFORMED BY: CB [facility] Xnjkji7043 Mauro [facility] [id number] Information: [id number] ALT [Catalytic activity/Vol] 19 [iU]/L Normal 0-32 [facility] Work Phone: Comment on above: 1 month; PATIENT NOT FASTINGPERFORMED BY: HARLEEN [facility] Gfaany4081 [facility] [id number] Information: [id number] ALT [Catalytic activity/Vol] 19 U/L Normal 0-32 [facility]; [facility] Work Phone: Comment on above: 1 month; PATIENT NOT FASTINGPERFORMED BY: HARLEEN [facility] Rrpjgq5987 [facility] [id number] Information: [id number] AST [Catalytic activity/Vol] 19 [iU]/L Normal 0-40 [facility] Work Phone: Comment on above: 1 month; PATIENT NOT FASTINGPERFORMED BY: CB [facility] Xuxzdj9639 [facility] [id number] Information: [id number] AST [Catalytic activity/Vol] 19 U/L Normal 0-40 [facility]; [facility] Work Phone: Comment on above: 1 month; PATIENT NOT FASTINGPERFORMED BY: HARLEEN [facility] Psewzh3948 [facility] [id number] Information: [id number] Bilirubin [Mass/Vol] 0.7 mg/dL Normal 0.0-1.2 [facility] Work Phone: Comment on above: 1 month; PATIENT NOT FASTINGPERFORMED BY: LabVon [facility]6370 [facility] [id number] Information: [id number],[id number] Bilirubin.direct [Mass/Vol] 0.20 mg/dL Normal 0.00-0.40 [facility] Work Phone: Comment on above: 1 month; PATIENT NOT FASTINGPERFORMED BY: LabCarly [place] 2065170 [facility] [id number] Information: [id number] Protein [Mass/Vol] 6.6 g/dL Normal 6.0-8.5 [facility] Work Phone: Comment on above: 1 month; PATIENT NOT FASTINGPERFORMED BY: LabV[facility]6370 [facility] [id number] Information: [id number] CBC WITH MANUAL DIFF (54753) Ordered By: Engine Setter on 12-04-2015 Basophils (Bld) [#/Vol] 0.0 {x10E3/uL} Normal 0.0-0.2 [facility] Work Phone: Comment on above: PATIENT WAS FASTINGP ERFORMED BY: [facility]6370 [facility] [id number] Information: [id number] Basophils (Bld) [#/Vol] 0.0 10*3/uL Normal 0.0-0.2 [facility]; [facility] Work Phone: Comment on above: PATIENT WAS FASTINGP ERFORMED BY: [facility]6370 [facility] [id number] Information: [id number] Basophils/100 WBC (Bld) 0 % Normal [facility] Work Phone: Comment on above: PATIENT WAS FASTINGP ERFORMED BY: LabVon [facility]6370 [facility] [id number] Information: [id number],[id number] Eosinophils (Bld) [#/Vol] 0.1 {x10E3/uL} Normal 0.0-0.4 [facility] Work Phone: Comment on above: PATIENT WAS FASTINGP ERFORMED BY: [place] 6038770 [facility] [id number] Information: [id number],[id number] Eosinophils (Bld) [#/Vol] 0.1 10*3/uL Normal 0.0-0.4 [facility]; [facility] Work Phone: Comment on above: PATIENT WAS FASTINGP ERFORMED BY: [address] [id number] Information: 105344,[id number] Eosinophils/100 WBC (Bld) 2 % Normal [facility] Work Phone: Comment on above: PATIENT WAS FASTINGP ERFORMED BY: [address] [id number] Information: [id number],[id number] Erythrocyte distribution width (RBC) [Ratio] 13.3 % Normal 12.3-15.4 [facility] Work Phone: Comment on above: PATIENT WAS FASTINGP ERFORMED BY: [address] [id number] Information: [id number] Hematocrit (Bld) [Volume fraction] 41.6 % Normal 34.0-46.6 [facility] Work Phone: Comment on above: PATIENT WAS FASTINGP ERFORMED BY: [address] [id number] Information: 051670,[id number] Hemoglobin (Bld) [Mass/Vol] 14.6 g/dL Normal 11.1-15.9 [facility] Work Phone: Comment on above: PATIENT WAS FASTINGP ERFORMED BY: [address] [id number] Information: [id number] Immature granulocytes (Bld) [#/Vol] 0.0 {x10E3/uL} Normal 0.0-0.1 [facility] Work Phone: Comment on above: PATIENT WAS FASTINGP ERFORMED BY: HARLEEN [facility] Vnsytq9527 [facility] [id number] Information: [id number],[id number] Immature granulocytes (Bld) [#/Vol] 0.0 10*3/uL Normal 0.0-0.1 [facility]; [facility] Work Phone: Comment on above: PATIENT WAS FASTINGP ERFORMED BY: [address] [id number] Information: [id number] Immature granulocytes/100 WBC (Bld) 0 % Normal [facility] Work Phone: Comment on above: PATIENT WAS FASTINGP ERFORMED BY: [address] [id number] Information: [id number] Lymphocytes (Bld) [#/Vol] 1.4 {x10E3/uL} Normal 0.7-3.1 [facility] Work Phone: Comment on above: PATIENT WAS FASTINGP ERFORMED BY: [place] 6038770 [facility] [id number] Information: [id number] Lymphocytes (Bld) [#/Vol] 1.4 10*3/uL Normal 0.7-3.1 [facility]; [facility] Work Phone: Comment on above: PATIENT WAS FASTINGP ERFORMED BY: [facility]6370 [facility] [id number] Information: 116454,[id number] Lymphocytes/100 WBC (Bld) 25 % Normal [facility] Work Phone: Comment on above: PATIENT WAS FASTINGP ERFORMED BY: [place] 6038770 [facility] [id number] Information: 707853,[id number] MCH (RBC) [Entitic mass] 31.2 pg Normal 26.6-33.0 [facility] Work Phone: Comment on above: PATIENT WAS FASTINGP ERFORMED BY: [place] 6038770 [facility] [id number] Information: [id number] MCHC (RBC) [Mass/Vol] 35.1 g/dL Normal 31.5-35.7 [facility] Work Phone: Comment on above: PATIENT WAS FASTINGP ERFORMED BY: [address] [id number] Information: [id number],[id number] MCV (RBC) [Entitic vol] 89 fL Normal 79-97 [facility] Work Phone: Comment on above: PATIENT WAS FASTINGP ERFORMED BY: [address] [id number] Information: [id number] Monocytes (Bld) [#/Vol] 0.2 {x10E3/uL} Normal 0.1-0.9 [facility] Work Phone: Comment on above: PATIENT WAS FASTINGP ERFORMED BY: [address] [id number] Information: [id number] Monocytes (Bld) [#/Vol] 0.2 10*3/uL Normal 0.1-0.9 [facility]; [facility] Work Phone: Comment on above: PATIENT WAS FASTINGP ERFORMED BY: [facility]6370 [facility] [id number] Information: [id number] Monocytes/100 WBC (Bld) 4 % Normal [facility] Work Phone: Comment on above: PATIENT WAS FASTINGP ERFORMED BY: [place] 6038770 [facility] [id number] Information: [id number] Neutrophils (Bld) [#/Vol] 3.8 {x10E3/uL} Normal 1.4-7.0 [facility] Work Phone: Comment on above: PATIENT WAS FASTINGP ERFORMED BY: HARLEEN Colleen Iverson6370 Ma[address] [facility]in [place] [id number] Information: 856341,[id number] Neutrophils (Bld) [#/Vol] 3.8 10*3/uL Normal 1.4-7.0 [facility]; [facility] Work Phone: Comment on above: PATIENT WAS FASTINGP ERFORMED BY: HARLEEN [facility] Vrvbhq8527 Ma[address] [facility] [place] [id number] Information: [id number] Neutrophils/100 WBC (Bld) 69 % Normal [facility] Work Phone: Comment on above: PATIENT WAS FASTINGP ERFORMED BY: HARLEEN EliuCo Mrgyhv6411 Mauro [facility] [id number] Information: [id number],[id number] Platelets (Bld) [#/Vol] 227 {x10E3/uL} Normal 150-379 [facility] Work Phone: Comment on above: PATIENT WAS FASTINGP ERFORMED BY: HARLEEN Colleen Boblin6370 Ma[address] [facility] [id number] Information: [id number] Platelets (Bld) [#/Vol] 227 10*3/uL Normal 150-379 [facility]; [facility] Work Phone: Comment on above: PATIENT WAS FASTINGP ERFORMED BY: HARLEEN [facility] Bdeawe2153 Ma[address] [facility] [place] [id number] Information: [id number],[id number] RBC (Bld) [#/Vol] 4.68 {x10E6/uL} Normal 3.77-5.28 [facility] Internal Medicine Work Phone: Comment on above: PATIENT WAS FASTINGP ERFORMED BY: HARLEEN [facility] Ldkmfk9980 Mauro [facility] [id number] Information: [id number] RBC (Bld) [#/Vol] 4.68 10*6/uL Normal 3.77-5.28 [facility]; [facility] Work Phone: Comment on above: PATIENT WAS FASTINGP ERFORMED BY: HARLEEN Dayday Fxcxrg2702 [facility] [id number] Information: [id number] WBC (Bld) [#/Vol] 5.5 {x10E3/uL} Normal 3.4-10.8 [facility] Internal Medicine Work Phone: Comment on above: PATIENT WAS FASTINGP ERFORMED BY: [facility] Cllakn7634 [facility] [id number] Information: [id number] WBC (Bld) [#/Vol] 5.5 10*3/uL Normal 3.4-10.8 [facility]; [facility] Work Phone: Comment on above: PATIENT WAS FASTINGP ERFORMED BY: HARLEEN [facility] Bwfdqb0195 [facility] [id number] Information: 307897,[id number] Lipid Panel (45051)Ordered B y: Engine Setter on 12-04-2015 Cholesterol [Mass/Vol] 171 mg/dL Normal 100-199 [facility] Work Phone: Comment on above: PATIENT WAS FASTINGP ERFORMED BY: [facility] Egifpx0348 [facility] [id number] Cholesterol in HDL [Mass/Vol] 68 mg/dL Normal [facility] Work Phone: Comment on above: According to ATP-III Guidelines, HDL-C >59 mg/dL is considered anegative risk factor for CHD. PATIENT WAS FASTINGP ERFORMED BY: LabM[facility] Zvqnkn5084 [facility] [id number] Cholesterol in LDL [Mass/Vol] 86 mg/dL Normal 0-99 [facility] Work Phone: Comment on above: PATIENT WAS FASTINGP ERFORMED BY: HARLEEN LabCoodilia Ukihlx5548 Ma[address] [facility] [place] [id number] Cholesterol in LDL/Cholesterol in HDL [Mass ratio] 1.3 {ratio_units} Normal 0.0-3.2 [facility] Work Phone: Comment on above: LDL/HDL Ratio Men Wo men 1/2 Avg.Risk 1.0 1.5 Avg.Risk 3.6 3.2 2X Avg.Risk 6.2 5.0 3X Avg.Risk 8.0 6.1 PATIENT WAS FASTINGP ERFORMED BY: HARLEEN LabGlory BobDwnqjn5009 Ma[address] [facility] [place] [id number] Cholesterol in VLDL [Mass/Vol] 17 mg/dL Normal 5-40 [facility] Work Phone: Comment on above: PATIENT WAS FASTINGP ERFORMED BY: HARLEEN LabGlory BobZkmufu3848 Ma[address] [facility] [id number] Triglyceride [Mass/Vol] 84 mg/dL Normal 0-149 [facility] Work Phone: Comment on above: PATIENT WAS FASTINGP ERFORMED BY: HARLEEN LabGlory BobImrhzh6511 Ma[address] [facility] [id number] Metabolic Panel, Comprehensi ve (79896)Ordered By: Engine Setter on 12-04-2015 Albumin [Mass/Vol] 4.8 g/dL Normal 3.5-5.5 [facility] Internal [facility] Work Phone: Comment on above: PATIENT WAS FASTINGP ERFORMED BY: HARLEEN LabCo Dgdsmi6649 [address] [facility] [place] [id number] Albumin/Globulin [Mass ratio] 2.1 {ratio} Normal 1.1-2.5 [facility] Work Phone: Comment on above: PATIENT WAS FASTINGP ERFORMED BY: HARLEEN [facility] Cmnbfe0811 [facility] [facility] [place] [id number] ALP [Catalytic activity/Vol] 38 [iU]/L Abnormal 39-117 [facility] Work Phone: Comment on above: PATIENT WAS FASTINGP ERFORMED BY: HARLEEN [facility] Cothnk6677 Mauro RoadDublin [place] [id number] ALP [Catalytic activity/Vol] 38 U/L Abnormal 39-117 [facility]; [facility] Work Phone: Comment on above: PATIENT WAS FASTINGP ERFORMED BY: [facility] Yudvym2950 Mauro RoadDublin [place] [id number] ALT [Catalytic activity/Vol] 28 [iU]/L Normal 0-32 [facility] Work Phone: Comment on above: PATIENT WAS FASTINGP ERFORMED BY: [facility] Gdqkax7171 Mauro RoadDublin [place] [id number] ALT [Catalytic activity/Vol] 28 U/L Normal 0-32 [facility]; [facility] Work Phone: Comment on above: PATIENT WAS FASTINGP ERFORMED BY: LabCo Jhecxl1505 Mauro RoadDublin [place] [id number] AST [Catalytic activity/Vol] 58 [iU]/L Abnormal 0-40 [facility] Work Phone: Comment on above: PATIENT WAS FASTINGP ERFORMED BY: LabM[facility] Vmwogj5705 Mauro RoadDublin [place] [id number] AST [Catalytic activity/Vol] 58 U/L Abnormal 0-40 [facility]; [facility] Work Phone: Comment on above: PATIENT WAS FASTINGP ERFORMED BY: LabM[facility] Ozozjk9866 Mauro RoadDublin [place] [id number] Bilirubin [Mass/Vol] 0.7 mg/dL Normal 0.0-1.2 [facility] Work Phone: Comment on above: PATIENT WAS FASTINGP ERFORMED BY: LabCo Uyviyd1657 Mauro RoadDublin [place] [id number] Calcium [Mass/Vol] 9.2 mg/dL Normal 8.7-10.2 [facility] Internal Medicine Work Phone: Comment on above: PATIENT WAS FASTINGP ERFORMED BY: [facility] Wmgyzj8902 Mauro RoadDublin [place] [id number] Chloride [Moles/Vol] 101 mmol/L Normal 97-108 [facility] Work Phone: Comment on above: PATIENT WAS FASTINGP ERFORMED BY: CB [facility] Zjehrc7448 Mauro RoadDublin [place] [id number] CO2 [Moles/Vol] 22 mmol/L Normal 18-29 [facility] Internal Medicine Work Phone: Comment on above: PATIENT WAS FASTINGP ERFORMED BY: CB [facility] Daxqkx0554 Mauro Roadblin [place] [id number] Creatinine [Mass/Vol] 0.83 mg/dL Normal 0.57-1.00 [facility] Internal [facility] Work Phone: Comment on above: PATIENT WAS FASTINGP ERFORMED BY: CB [facility] Lfgpib9040 Mauro RoadDublin [place] [id number] GFR/1.73 sq M predicted among blacks CKD-EPI (S/P/Bld) [Vol rate/Area] 109 mL/min/1.73 Normal [facility] Work Phone: Comment on above: PATIENT WAS FASTINGP ERFORMED BY: [facility] Iwmrol7127 Mauro RoadDublin [place] [id number] GFR/1.73 sq M predicted among non-blacks CKD-EPI (S/P/Bld) [Vol rate/Area] 95 mL/min/1.73 Normal [facility] Work Phone: Comment on above: PATIENT WAS FASTINGP ERFORMED BY: CB [facility] Sixzux2980 Ma[address] [facility] [place] [id number] Globulin (S) [Mass/Vol] 2.3 g/dL Normal 1.5-4.5 [facility] Internal Medicine Work Phone: Comment on above: PATIENT WAS FASTINGP ERFORMED BY: CB [facility] Fzizhg8024 Mauro RoadDublin [place] [id number] Glucose [Mass/Vol] 85 mg/dL Normal 65-99 [facility] Internal Medicine Work Phone: Comment on above: PATIENT WAS FASTINGP ERFORMED BY: CB [facility] Nnbxvy0529 Mauro RoadDublin [place] [id number] Potassium [Moles/Vol] 4.3 mmol/L Normal 3.5-5.2 [facility] Work Phone: Comment on above: PATIENT WAS FASTINGP ERFORMED BY: [facility] Pyqlnh9954 [address] [facility] [place] [id number] Protein [Mass/Vol] 7.1 g/dL Normal 6.0-8.5 [facility] Internal Medicine Work Phone: Comment on above: PATIENT WAS FASTINGP ERFORMED BY: [facility] Wgwgwp6801 [address] [facility] [place] [id number] Sodium [Moles/Vol] 140 mmol/L Normal 134-144 [facility] Internal Medicine Work Phone: Comment on above: PATIENT WAS FASTINGP ERFORMED BY: Lab[facility] Stykco3674 Ma[address] [facility] [id number] Urea nitrogen [Mass/Vol] 13 mg/dL Normal 6-20 [facility] Work Phone: Comment on above: PATIENT WAS FASTINGP ERFORMED BY: Lab[facility] Kadpfx1731 [address] [facility] [id number] Urea nitrogen/Creatinin e [Mass ratio] 16 mg/mg Normal 8-20 [facility] Work Phone: Comment on above: PATIENT WAS FASTINGP ERFORMED BY: [facility] Vxyzaq6601 [facility] [id number] TSH (12499)Ordered By: Augie m System Auditor on 12-04-2015 TSH Qn 1.260 {uIU/mL} Normal 0.450-4.500 [facility] Internal Medicine Work Phone: Comment on above: PATIENT WAS FASTINGP ERFORMED BY: [facility] Kvynps0727 [address] [facility] [place] [id number] Rapid Flu (56857 x 2)Ordered By: Aurora Galvin on 08-12-2015 FLUAV Ag IA Ql (Throat) neg a and b Normal [facility] Work Phone: Rapid Strep Test, Office ([phone])Ordered By: Aurora Galvin on 08-12-2015 S. pyogenes Ag EIA Ql (Throat) Negative Normal [facility]; [facility] Work Phone: S. pyogenes Ag IA Ql (Unsp spec) Negative Normal [facility] Work Phone: Nuab Vaginitis Plus (STD W /O Herpes) (42476)Ordered By: Engine Setter on 10-24-2014 A. vaginae DNA SOFIA+probe Ql (Vag fld) Low - 0 Normal [facility] Work Phone: Comment on above: PATIENT NOT FASTINGP ERFORMED BY: [address] [id number] Information: [id number] Bacterial vaginosis associated bacterium 2 DNA SOFIA+probe Ql (Vag fld) Low - 0 Normal [facility] Work Phone: Comment on above: PATIENT NOT FASTINGP ERFORMED BY: [address] [id number] Information: [id number] C. albicans DNA SOFIA+probe Ql (Vag fld) Negative Normal [facility] Work Phone: Comment on above: PATIENT NOT FASTINGP ERFORMED BY: [address] [id number] Information: [id number] C. albicans DNA SOFIA+probe Ql (Vag fld) Negative Normal [facility]; [facility] Work Phone: Comment on above: PATIENT NOT FASTINGP ERFORMED BY: [address] [id number] Information: [id number] C. glabrata DNA SOFIA+probe Ql (Vag fld) Negative Normal [facility] Work Phone: Comment on above: This test was develo ped and its performance characteristics determinedby [facility]. It has not been cleared or approved by the Food and DrugAdministration. The FDA has determined that such clearance orapproval is not necessary. PATIENT NOT FASTINGP ERFORMED BY: [address] [id number] Information: [id number] C. glabrata DNA SOFIA+probe Ql (Vag fld) Negative Normal [facility]; [facility] Work Phone: Comment on above: This test was develo ped and its performance characteristics determinedby [facility]. It has not been cleared or approved by the Food and DrugAdministration. The FDA has determined that such clearance orapproval is not necessary. PATIENT NOT FASTINGP ERFORMED BY: [address] [id number] Information: [id number] C. trachomatis rRNA SOFIA+probe Ql (Unsp spec) Negative Normal [facility] Work Phone: Comment on above: PATIENT NOT FASTINGP ERFORMED BY: [address] [id number] Information: [id number] C. trachomatis rRNA SOFIA+probe Ql (Unsp spec) Negative Normal [facility]; [facility] Work Phone: Comment on above: PATIENT NOT FASTINGP ERFORMED BY: [address] [id number] Information: [id number] Megasphaera sp type 1 DNA SOFIA+probe Ql (Vag fld) Low - 0 Normal [facility] Work Phone: Comment on above: Calculate total scor e by adding the 3 individual bacterial vaginosis(BV) marker scores together. Total score is interpreted as follows: .Total score 0-1: Indicates the absence of BV.Total score 2: Indeterminate for BV. Additional clinical data should be evaluated to establish a diagnosis.Total score 3-6: Indicates the presence of BV. .This test was developed and its performance characteristics determinedby [facility]. It has not been cleared or approved by the Food and DrugAdministration. The FDA has determined that such clearance orapproval is not necessary. PATIENT NOT FASTINGP ERFORMED BY: [address] [id number] Information: [id number] N. gonorrhoeae rRNA SOFIA+probe Ql (Unsp spec) Negative Normal [facility] Work Phone: Comment on above: PATIENT NOT FASTINGP ERFORMED BY: LabCo[address] [id number] Information: K03739 N. gonorrhoeae rRNA SOFIA+probe Ql (Unsp spec) Negative Normal [facility]; [facility] Work Phone: Comment on above: PATIENT NOT FASTINGP ERFORMED BY: Lab[address] [id number] Information: [id number] T. vaginalis rRNA SOFIA+probe Ql (Unsp spec) Negative Normal [facility] Work Phone: Comment on above: PATIENT NOT FASTINGP ERFORMED BY: [address] [id number] Information: [id number] T. vaginalis rRNA SOFIA+probe Ql (Unsp spec) Negative Normal [facility]; [facility] Work Phone: Comment on above: PATIENT NOT FASTINGP ERFORMED BY: [address] [id number] Information: [id number] Rapid Strep Test, Office ([phone])Ordered By: Aurora Galvin on 05-13-2014 S. pyogenes Ag EIA Ql (Throat) Negative Normal [facility]; [facility] Work Phone: S. pyogenes Ag IA Ql (Unsp spec) Negative Normal [facility] Work Phone: Throat Culture (87309)Ordere d By: Engine Setter on 05-13-2014 Bacteria identified Respiratory culture Nom (Unsp spec) Final report Normal [facility] Work Phone: Comment on above: PATIENT NOT FASTINGP ERFORMED BY: CB [facility] Aznjhr7544 [facility] [id number] Information: SRC:THRT [id number] Bacteria identified Respiratory culture Nom (Unsp spec) RRF Normal [facility] Work Phone: Comment on above: Routine respiratory beverly PATIENT NOT FASTINGP ERFORMED BY: CB [facility] Mmtidx3667 [facility] [id number] Information: SRC:ROSALBA [id number] LIPID PANEL (49923)Ordered B y: Engine Setter on 04-02-2014 Cholesterol [Mass/Vol] 191 mg/dL Normal 100-199 [facility] Work Phone: Comment on above: PATIENT WAS FASTINGP ERFORMED BY: [facility] Fguvoi4825 [facility] [id number] Cholesterol in HDL [Mass/Vol] 66 mg/dL Normal [facility] Work Phone: Comment on above: According to ATP-III Guidelines, HDL-C >59 mg/dL is considered anegative risk factor for CHD. PATIENT WAS FASTINGP ERFORMED BY: [facility]6370 [facility] [id number] Cholesterol in LDL [Mass/Vol] 99 mg/dL Normal 0-99 [facility] Work Phone: Comment on above: PATIENT WAS FASTINGP ERFORMED BY: [facility] Dkfbko0931 [facility] [id number] Cholesterol in LDL/Cholesterol in HDL [Mass ratio] 1.5 {ratio_units} Normal 0.0-3.2 [facility] Work Phone: Comment on above: PATIENT WAS FASTINGP ERFORMED BY: [facility] Iojmhk0403 [facility] [id number] Cholesterol in VLDL [Mass/Vol] 26 mg/dL Normal 5-40 [facility] Work Phone: Comment on above: PATIENT WAS FASTINGP ERFORMED BY: [facility] Vgnyfs1330 [facility] [id number] Triglyceride [Mass/Vol] 132 mg/dL Normal 0-149 [facility] Work Phone: Comment on above: PATIENT WAS FASTINGP ERFORMED BY: [facility] Pevpdk3278 [facility] [id number] METABOLIC PANEL, COMPREHENSI VE (12856)Ordered By: Engine Setter on 04-02-2014 Albumin [Mass/Vol] 4.4 g/dL Normal 3.5-5.5 Compre hens[facility] Work Phone: Comment on above: PATIENT WAS FASTINGP ERFORMED BY: HARLEEN Colleen Iverson6370 [facility] [id number] Information: [id number] Albumin/Globulin [Mass ratio] 1.9 {ratio} Normal 1.1-2.5 [facility] Work Phone: Comment on above: PATIENT WAS FASTINGP ERFORMED BY: HARLEEN EliuCo Cmnpxa5885 [facility] [id number] Information: 675750,V00551 ALP [Catalytic activity/Vol] 54 [iU]/L Normal 39-117 [facility] Work Phone: Comment on above: PATIENT WAS FASTINGP ERFORMED BY: HARLEEN Dayday Ksuohy7576 [facility] [id number] Information: 574164,Z72623 ALP [Catalytic activity/Vol] 54 U/L Normal 39-117 [facility]; [facility] Work Phone: Comment on above: PATIENT WAS FASTINGP ERFORMED BY: HARLEEN [facility] Ltvmcl8212 [facility] [id number] Information: 834560,G65167 ALT [Catalytic activity/Vol] 21 [iU]/L Normal 0-32 [facility] Work Phone: Comment on above: PATIENT WAS FASTINGP ERFORMED BY: LabCarly [place] 2065170 [facility] [id number] Information: 974703,N59227 ALT [Catalytic activity/Vol] 21 U/L Normal 0-32 [facility]; [facility] Work Phone: Comment on above: PATIENT WAS FASTINGP ERFORMED BY: HARLEEN [facility] Pwbhtp6299 [facility] [id number] Information: 829747,G74732 AST [Catalytic activity/Vol] 18 [iU]/L Normal 0-40 [facility] Work Phone: Comment on above: PATIENT WAS FASTINGP ERFORMED BY: [facility] Mqrkdw8383 [address]uro RoadDublin [place] [id number] Information: [id number],S23696 AST [Catalytic activity/Vol] 18 U/L Normal 0-40 [facility]; [facility] Work Phone: Comment on above: PATIENT WAS FASTINGP ERFORMED BY: [facility] Ddzmch8146 [address]uro RoadDublin [place] [id number] Information: 611342,R76991 Bilirubin [Mass/Vol] 0.6 mg/dL Normal 0.0-1.2 [facility] Work Phone: Comment on above: PATIENT WAS FASTINGP ERFORMED BY: [facility] Uofgwx8721 [address] RoadDublin [place] [id number] Information: 246835,D81635 Calcium [Mass/Vol] 9.5 mg/dL Normal 8.7-10.2 [facility] Internal Medicine Work Phone: Comment on above: PATIENT WAS FASTINGP ERFORMED BY: [facility] Knveqj4853 [address] RoadDublin [place] [id number] Information: 984309,I40718 Chloride [Moles/Vol] 99 mmol/L Normal 97-108 [facility] Work Phone: Comment on above: PATIENT WAS FASTINGP ERFORMED BY: [facility] Hykvxg0632 [address] RoadDublin [place] [id number] Information: 137829,B28400 CO2 [Moles/Vol] 25 mmol/L Normal 18-29 [facility] Work Phone: Comment on above: PATIENT WAS FASTINGP ERFORMED BY: [facility] Iyvqkb9817 [address] RoadDublin [place] [id number] Information: 796895,W25804 Creatinine [Mass/Vol] 0.98 mg/dL Normal 0.57-1.00 [facility] Work Phone: Comment on above: PATIENT WAS FASTINGP ERFORMED BY: [facility] Kctoux4020 [address] RoadDublin [place] [id number] Information: 149842,A07885 GFR/1.73 sq M predicted among blacks CKD-EPI (S/P/Bld) [Vol rate/Area] 91 mL/min/1.73 Normal [facility] Work Phone: Comment on above: PATIENT WAS FASTINGP ERFORMED BY: [place] 6038770 [facility] [id number] Information: 539668,Q08424 GFR/1.73 sq M predicted among non-blacks CKD-EPI (S/P/Bld) [Vol rate/Area] 79 mL/min/1.73 Normal [facility] Work Phone: Comment on above: PATIENT WAS FASTINGP ERFORMED BY: [place] 6038770 [facility] [id number] Information: 780274,R86618 Globulin (S) [Mass/Vol] 2.3 g/dL Normal 1.5-4.5 [facility] Work Phone: Comment on above: PATIENT WAS FASTINGP ERFORMED BY: [facility]6370 [facility] [id number] Information: 563737,V12499 Glucose [Mass/Vol] 78 mg/dL Normal 65-99 [facility] Internal [facility] Work Phone: Comment on above: PATIENT WAS FASTINGP ERFORMED BY: [facility]6370 [facility] [id number] Information: 143996,M92049 Potassium [Moles/Vol] 4.2 mmol/L Normal 3.5-5.2 [facility] Work Phone: Comment on above: PATIENT WAS FASTINGP ERFORMED BY: [facility]6370 [facility] [id number] Information: 487621,O67582 Protein [Mass/Vol] 6.7 g/dL Normal 6.0-8.5 [facility] Work Phone: Comment on above: PATIENT WAS FASTINGP ERFORMED BY: [facility] Vllgwd8859 [facility] [id number] Information: 818152,H83831 Sodium [Moles/Vol] 141 mmol/L Normal 134-144 [facility] Work Phone: Comment on above: PATIENT WAS FASTINGP ERFORMED BY: LabCoEssex County HospitalGctwzl0523 [facility] [id number] Information: 661771,V39410 Urea nitrogen [Mass/Vol] 11 mg/dL Normal 6-20 [facility] Work Phone: Comment on above: PATIENT WAS FASTINGP ERFORMED BY: [facility]6370 [facility] [id number] Information: 759290,J11756 Urea nitrogen/Creatinin e [Mass ratio] 11 mg/mg Normal 8-20 [facility] Work Phone: Comment on above: PATIENT WAS FASTINGP ERFORMED BY: [facility]6370 [facility] [id number] Information: 010396,O10673 Glucose (86797)Ordered By: S ystem System Auditor on 05-23-2013 Glucose [Mass/Vol] 79 mg/dL Normal 65-99 [facility] Work Phone: Comment on above: PATIENT WAS FASTINGP ERFORMED BY: [facility] Kzurnm6403 [facility] [id number] LIPID PANEL (18407)Ordered B y: Engine Setter on 05-23-2013 Cholesterol [Mass/Vol] 162 mg/dL Normal 100-199 [facility] Work Phone: Comment on above: PATIENT WAS FASTINGP ERFORMED BY: [facility] Kfkvyz4945 [facility] [id number] Information: 989012,B17979 Cholesterol in HDL [Mass/Vol] 62 mg/dL Normal [facility] Work Phone: Comment on above: According to ATP-III Guidelines, HDL-C >59 mg/dL is considered anegative risk factor for CHD. PATIENT WAS FASTINGP ERFORMED BY: [facility] Wtoejf6397 [facility] [id number] Information: 742921,R12324 Cholesterol in LDL [Mass/Vol] 90 mg/dL Normal 0-99 [facility] Work Phone: Comment on above: PATIENT WAS FASTINGP ERFORMED BY: [facility] Doznma4417 [facility] [id number] Information: 018906,A93168 Cholesterol in LDL/Cholesterol in HDL [Mass ratio] 1.5 {ratio_units} Normal 0.0-3.2 [facility] Work Phone: Comment on above: PATIENT WAS FASTINGP ERFORMED BY: [facility] Uknock8354 [facility] [id number] Information: 806299,H39536 Cholesterol in VLDL [Mass/Vol] 10 mg/dL Normal 5-40 [facility] Work Phone: Comment on above: PATIENT WAS FASTINGP ERFORMED BY: [facility] Nmxvvk5704 [facility] [id number] Information: 228229,Q19484 Triglyceride [Mass/Vol] 48 mg/dL Normal 0-149 [facility] Work Phone: Comment on above: PATIENT WAS FASTINGP ERFORMED BY: [facility] Vnjlrg5213 [facility] [id number] Information: 172938,J76324 MENDY CULTURE-OTHER (43067)Ord ered By: Engine Setter on 09-03-2010 Bacteria identified Respiratory culture Nom (Unsp spec) Final report Normal [facility] Work Phone: Comment on above: PERFORMED BY: Lab Glory Afobaj2905 [facility] [id number] Information: SRC: THROAT Bacteria identified Respiratory culture Nom (Unsp spec) BETAGB Normal [facility] Work Phone: Comment on above: Beta hemolytic Strep tococcus, group BHeavy growthPenicillin continues to be the drug of choice for infectionscaused by beta hemolytic streptococci in groups A,B,C and G.No penicillin resistance has been described among theseorganisms and surveillance for emerging resistance is notrecommended. (KINZA Harper. Clinical Microbiology Newsletter,1993; SARAHI Barclay et al. Diagnostic Microbiology andInfectious Disease, January,.) PERFORMED BY: YellowHam[employer] Glory Jmieft2175 [facility] [id number] Information: SRC: THROAT Rapid Strep Test, Office (35 573)Ordered By: No Ariza on 09-03-2010 S. pyogenes Ag EIA Ql (Throat) Negative Normal [facility]; [facility] Work Phone: S. pyogenes Ag IA Ql (Unsp spec) Negative Normal [facility] Work Phone: CBC WITH MANUAL DIFF (03275) Ordered By: Engine Setter on 06-07-2010 Basophils (Bld) [#/Vol] 0.0 {x10E3/uL} Normal 0.0-0.2 [facility] Work Phone: Comment on above: PATIENT NOT FASTINGP ERFORMED BY: [employer]Corp Efwmzs6395 [address] [facility] [id number] Information: 978645,K07087 Basophils (Bld) [#/Vol] 0.0 10*3/uL Normal 0.0-0.2 [facility]; [facility] Work Phone: Comment on above: PATIENT NOT FASTINGP ERFORMED BY: CoinJar LabCo Przsta4369 [facility] [id number] Information: 966231,F14484 Basophils/100 WBC (Bld) 0 % Normal 0-3 [facility] Work Phone: Comment on above: PATIENT NOT FASTINGP ERFORMED BY: YellowHammerCoCrowdPC70 [address] [facility] [id number] Information: 045268,[id number] Eosinophils (Bld) [#/Vol] 0.1 {x10E3/uL} Normal 0.0-0.4 [facility] Work Phone: Comment on above: PATIENT NOT FASTINGP ERFORMED BY: HARLEEN NowakCo Qmnojk8169 [facility] [id number] Information: 369645,Z40731 Eosinophils (Bld) [#/Vol] 0.1 10*3/uL Normal 0.0-0.4 [facility]; [facility] Work Phone: Comment on above: PATIENT NOT FASTINGP ERFORMED BY: HARLEEN LabCoDebra Ville 3129970 [facility] [id number] Information: 297972,K55453 Eosinophils/100 WBC (Bld) 1 % Normal 0-7 [facility] Work Phone: Comment on above: PATIENT NOT FASTINGP ERFORMED BY: HARLEEN [address] [id number] Information: 577841,E05835 Erythrocyte distribution width (RBC) [Ratio] 14.1 % Normal 11.7-15.0 [facility] Work Phone: Comment on above: PATIENT NOT FASTINGP ERFORMED BY: HARLEEN NowakCarly [place] 2065170 [facility] [id number] Information: 073226,V76494 Hematocrit (Bld) [Volume fraction] 38.0 % Normal 34.0-44.0 [facility] Work Phone: Comment on above: PATIENT NOT FASTINGP ERFORMED BY: LabCoDebra Ville 3129970 [facility] [id number] Information: 746639,Y22126 Hemoglobin (Bld) [Mass/Vol] 12.5 g/dL Normal 11.5-15.0 [facility] Work Phone: Comment on above: PATIENT NOT FASTINGP ERFORMED BY: HARLEEN LabCoDebra Ville 3129970 [facility] [id number] Information: 973566,R53266 Immature granulocytes (Bld) [#/Vol] 0.0 {x10E3/uL} Normal 0.0-0.1 [facility] Work Phone: Comment on above: PATIENT NOT FASTINGP ERFORMED BY: HARLEEN Iverson6370 [facility] [id number] Information: 178746,W41116 Immature granulocytes (Bld) [#/Vol] 0.0 10*3/uL Normal 0.0-0.1 [facility]; [facility] Work Phone: Comment on above: PATIENT NOT FASTINGP ERFORMED BY: HARLEEN Boblin6370 [address] [facility] [id number] Information: 908592,V15172 Immature granulocytes/100 WBC (Bld) 0 % Normal 0-1 [facility] Work Phone: Comment on above: PATIENT NOT FASTINGP ERFORMED BY: HARLEEN Boblin6370 [facility] [id number] Information: 375799,Q03054 Lymphocytes (Bld) [#/Vol] 1.4 {x10E3/uL} Normal 0.7-4.5 [facility] Work Phone: Comment on above: PATIENT NOT FASTINGP ERFORMED BY: HARLEEN Iverson6370 [facility] [id number] Information: 231324,Z22874 Lymphocytes (Bld) [#/Vol] 1.4 10*3/uL Normal 0.7-4.5 [facility]; [facility] Work Phone: Comment on above: PATIENT NOT FASTINGP ERFORMED BY: HARLEEN NowakCo Esdzbh1968 [facility] [id number] Information: 051836,[id number] Lymphocytes/100 WBC (Bld) 24 % Normal 14-46 [facility] Work Phone: Comment on above: PATIENT NOT FASTINGP ERFORMED BY: HARLEEN Naylor Qakvtw8210 [facility] [id number] Information: 851830,[id number] MCH (RBC) [Entitic mass] 27.4 pg Normal 27.0-34.0 [facility] Work Phone: Comment on above: PATIENT NOT FASTINGP ERFORMED BY: HARLEEN Christiansen [facility] [id number] Information: 642394,Q25365 MCHC (RBC) [Mass/Vol] 32.9 g/dL Normal 32.0-36.0 [facility] Work Phone: Comment on above: PATIENT NOT FASTINGP ERFORMED BY: HARLEEN Naylor Mazbzu4863 [facility] [id number] Information: 178648,Q29221 MCV (RBC) [Entitic vol] 83 fL Normal 80-98 [facility] Work Phone: Comment on above: PATIENT NOT FASTINGP ERFORMED BY: HARLEEN Naylor Rfgqcr5970 [facility] [id number] Information: [id number] Monocytes (Bld) [#/Vol] 0.4 {x10E3/uL} Normal 0.1-1.0 [facility] Work Phone: Comment on above: PATIENT NOT FASTINGP ERFORMED BY: HARLEEN Naylor Skpolq2475 [facility] [id number] Information: [id number] Monocytes (Bld) [#/Vol] 0.4 10*3/uL Normal 0.1-1.0 [facility]; [facility] Work Phone: Comment on above: PATIENT NOT FASTINGP ERFORMED BY: HARLEEN LabVon [facility]6370 [facility] [id number] Information: [id number] Monocytes/100 WBC (Bld) 6 % Normal 4-13 [facility] Work Phone: Comment on above: PATIENT NOT FASTINGP ERFORMED BY: HARLEEN LabHamEssex County HospitalXighhr2657 [facility] [id number] Information: [id number] Neutrophils (Bld) [#/Vol] 4.2 {x10E3/uL} Normal 1.8-7.8 [facility] Work Phone: Comment on above: PATIENT NOT FASTINGP ERFORMED BY: HARLEEN Iverson6[address] [facility] [id number] Information: [id number],[id number] Neutrophils (Bld) [#/Vol] 4.2 10*3/uL Normal 1.8-7.8 [facility]; [facility] Work Phone: Comment on above: PATIENT NOT FASTINGP ERFORMED BY: HARLEEN LabCoodilia BobBjfusu2235 [address] [facility] [id number] Information: 460024,[id number] Neutrophils/100 WBC (Bld) 69 % Normal 40-74 [facility] Work Phone: Comment on above: PATIENT NOT FASTINGP ERFORMED BY: HARLEEN Boblin6370 [facility] [id number] Information: [id number],[id number] Platelets (Bld) [#/Vol] 219 {x10E3/uL} Normal 140-415 [facility] Work Phone: Comment on above: PATIENT NOT FASTINGP ERFORMED BY: HARLEEN Iverson6370 [facility]uroS[facility] [id number] Information: 089625,D59900 Platelets (Bld) [#/Vol] 219 10*3/uL Normal 140-415 [facility]; [facility] Work Phone: Comment on above: PATIENT NOT FASTINGP ERFORMED BY: HARLEEN [facility] Fyeorv4001 [facility]uroS[facility] [id number] Information: 839795,[id number] RBC (Bld) [#/Vol] 4.56 {x10E6/uL} Normal 3.80-5.10 [facility] Internal Medicine Work Phone: Comment on above: PATIENT NOT FASTINGP ERFORMED BY: HARLEEN [facility] Wzfzfr6360 [address] [facility] [id number] Information: [id number] RBC (Bld) [#/Vol] 4.56 10*6/uL Normal 3.80-5.10 [facility]; [facility] Work Phone: Comment on above: PATIENT NOT FASTINGP ERFORMED BY: HARLEEN Iverson6370 [address] RoadAt[facility] [place] [id number] Information: 751539,A57359 WBC (Bld) [#/Vol] 6.1 {x10E3/uL} Normal 4.0-10.5 [facility] Internal Medicine Work Phone: Comment on above: PATIENT NOT FASTINGP ERFORMED BY: HARLEEN LabGlory Iverson6370 [address] [facility] [place] [id number] Information: 378027,[id number] WBC (Bld) [#/Vol] 6.1 10*3/uL Normal 4.0-10.5 [facility]; [facility] Internal [facility] Work Phone: Comment on above: PATIENT NOT FASTINGP ERFORMED BY: HARLEEN Boblin6370 [address] [facility] [id number] Information: 020614,[id number] METABOLIC PANEL, COMPREHENSI VE (29194)Ordered By: Engine Setter on 06-07-2010 Albumin [Mass/Vol] 4.4 g/dL Normal 3.5-5.5 [facility] Work Phone: Comment on above: PATIENT NOT FASTINGP ERFORMED BY: HARLEEN [facility] Ysnsgc3925 [address] [facility] [id number] Albumin/Globulin [Mass ratio] 2.0 {ratio} Normal 1.1-2.5 [facility] Work Phone: Comment on above: PATIENT NOT FASTINGP ERFORMED BY: HARLEEN [facility] Dhkjmc3418 [address] [facility] [id number] ALP [Catalytic activity/Vol] 52 [iU]/L Normal 25-150 [facility] Work Phone: Comment on above: PATIENT NOT FASTINGP ERFORMED BY: HARLEEN [facility] Htkpan2937 [address] [facility] [place] [id number] ALP [Catalytic activity/Vol] 52 U/L Normal 25-150 [facility]; [facility] Work Phone: Comment on above: PATIENT NOT FASTINGP ERFORMED BY: HARLEEN [facility] Zuaueo5944 [address] RoadDublin [place] [id number] ALT [Catalytic activity/Vol] 10 [iU]/L Normal 0-40 [facility] Work Phone: Comment on above: PATIENT NOT FASTINGP ERFORMED BY: CB [facility] Lanbsu2889 [address] RoadDublin [place] [id number] ALT [Catalytic activity/Vol] 10 U/L Normal 0-40 [facility]; [facility] Work Phone: Comment on above: PATIENT NOT FASTINGP ERFORMED BY: [facility] Ksofnz1239 [address] RoadDublin [place] [id number] AST [Catalytic activity/Vol] 15 [iU]/L Normal 0-40 [facility] Work Phone: Comment on above: PATIENT NOT FASTINGP ERFORMED BY: [facility] Mkozqe4749 [address] RoadDublin [place] [id number] AST [Catalytic activity/Vol] 15 U/L Normal 0-40 [facility]; [facility] Work Phone: Comment on above: PATIENT NOT FASTINGP ERFORMED BY: LabCo Aeuirm3236 [address] RoadDublin [place] [id number] Bilirubin [Mass/Vol] 0.4 mg/dL Normal 0.0-1.2 [facility] Work Phone: Comment on above: PATIENT NOT FASTINGP ERFORMED BY: CB [facility] Ajesuh9488 [address]uro RoadDublin [place] [id number] Calcium [Mass/Vol] 9.0 mg/dL Normal 8.7-10.2 [facility] Internal Medicine Work Phone: Comment on above: PATIENT NOT FASTINGP ERFORMED BY: CB [facility] Wmnwwr2048 [address] RoadDublin [place] [id number] Chloride [Moles/Vol] 102 mmol/L Normal 97-108 [facility] Work Phone: Comment on above: PATIENT NOT FASTINGP ERFORMED BY: CB [facility] Czvarv4672 [address] [place] [id number] CO2 [Moles/Vol] 20 mmol/L Normal 20-32 [facility] Internal Medicine Work Phone: Comment on above: PATIENT NOT FASTINGP ERFORMED BY: CB [facility] Ztuoqo8639 [address] TradesparqNov[facility] [id number] Creatinine [Mass/Vol] 0.88 mg/dL Normal 0.57-1.00 [facility] Work Phone: Comment on above: PATIENT NOT FASTINGP ERFORMED BY: CB [facility] Recvqk8913 [address] TradesparqNovant Health Presbyterian Medical Center [id number] GFR/1.73 sq M predicted among blacks MDRD (S/P/Bld) [Vol rate/Area] mL/min/{1.73_m2} Normal [facility] Work Phone: Comment on above: Note: Persistent red uction for 3 months or more in an eGFR<60 mL/min/1.73 m2 defines CKD. Patients with eGFR values>/=60 mL/min/1.73 m2 may also have CKD if evidence of persistentproteinuria is present. Additional information may be found [email or web address]. PATIENT NOT FASTINGP ERFORMED BY: CB [facility] [id number] Mauro TradesparqNov[facility] [id number] GFR/1.73 sq M.predicted MDRD (S/P/Bld) [Vol rate/Area] mL/min/{1.73_m2} Normal [facility] Work Phone: Comment on above: PATIENT NOT FASTINGP ERFORMED BY: CB [facility] [id number] Mauro TradesparqAt[facility] [place] [id number] Globulin (S) [Mass/Vol] 2.2 g/dL Normal 1.5-4.5 [facility] Work Phone: Comment on above: PATIENT NOT FASTINGP ERFORMED BY: CB [facility] [id number] [address]Dublin [place] [id number] Glucose [Mass/Vol] 82 mg/dL Normal 65-99 [facility] Work Phone: Comment on above: PATIENT NOT FASTINGP ERFORMED BY: HARLEEN [facility] [id number] Mauro RoadDublin [place] [id number] Potassium [Moles/Vol] 4.0 mmol/L Normal 3.5-5.2 [facility] Work Phone: Comment on above: PATIENT NOT FASTINGP ERFORMED BY: CB [facility] [id number] Ma[address] RoadDublin [place] [id number] Protein [Mass/Vol] 6.6 g/dL Normal 6.0-8.5 [facility] Work Phone: Comment on above: PATIENT NOT FASTINGP ERFORMED BY: HRALEEN [facility] [id number] [address]Dublin [place] [id number] Sodium [Moles/Vol] 138 mmol/L Normal 135-145 [facility] Work Phone: Comment on above: PATIENT NOT FASTINGP ERFORMED BY: CB [facility] [id number] [address]Dublin [place] [id number] Urea nitrogen [Mass/Vol] 13 mg/dL Normal 5-26 [facility] Work Phone: Comment on above: PATIENT NOT FASTINGP ERFORMED BY: HARLEEN [facility] [id number] [address]Dublin [place] [id number] Urea nitrogen/Creatinin e [Mass ratio] 15 mg/mg Normal 8-27 [facility] Work Phone: Comment on above: PATIENT NOT FASTINGP ERFORMED BY: CB [facility] [id number] [address]Dublin [place] [id number] TSH ([id number])Ordered By: Augie Melendez on 06-07-2010 TSH Qn 1.250 {uIU/mL} Normal 0.450-4.500 [facility] Work Phone: Comment on above: PATIENT NOT FASTINGP ERFORMED BY: CB [facility] [id number] [address]Dublin [place] [id number] SKIN TEST INTRADERMAL TB (86 [id number])Ordered By: Iris Durand on 09-30-2008 SKIN TEST INTRADERMAL TB (08914) Negative Normal [facility] Work Phone: Comment on above: Lot #[id number] Site-left forearmDose0.1given by Gladys Alfredo LPN SKIN TEST INTRADERMAL TB (62179) Negative Normal [facility]; [facility] Work Phone: Comment on above: Lot #[id number] Site-left forearmDose0.1given by Gladys Alfredo LPN Vital Signs Date Time Vital Sign Value Performing Clinician Facility 06-30-2017 13:12-0500 BMI (Body Mass Index) 21.8 kg/m2 Sonya Benoit [facility] 06-30-2017 13:12-0500 BP Diastolic 75 mm[Hg] Sonya Benoit MD [facility] 06-30-2017 13:12-0500 BP Systolic 125 mm[Hg] Sonya Benoit MD [facility] 06-30-2017 13:12-0500 Height 165.1 cm Sonya Benoit MD [facility] 06-30-2017 13:12-0500 Weight 59.42 kg Sonya Benoit MD [facility] 12-13-2016 08:07-0400 BMI (Body Mass Index) 21.97 kg/m2 Louisa Stephanerb SYSTEMS ENGINEERING MANAGER [facility] Work Phone: 12-13-2016 08:07-0400 Body Temperature 98.1 [degF] Louisa Stephanerb SYSTEMS ENGINEERING MANAGER [facility] Work Phone: 12-13-2016 08:07-0400 Body weight 59.88 kg Louisa Stephanerb SYSTEMS ENGINEERING MANAGER [facility] Work Phone: 12-13-2016 08:07-0400 BP Diastolic 72 mm[Hg] Louisa Slarb SYSTEMS ENGINEERING MANAGER [facility] Work Phone: Comment on above: Patient Position: Sitting; Cuff Location : Left Arm; Cuff Size: Standard 12-13-2016 08:07-0400 BP Systolic 108 mm[Hg] Louisa Slarb SYSTEMS ENGINEERING MANAGER [facility] Work Phone: Comment on above: Patient Position: Sitting; Cuff Location : Left Arm; Cuff Size: Standard 12-13-2016 08:07-0400 BSA (Body Surface Area) 1.66 m2 Louisa Foreman LPN [facility] Work Phone: 12-13-2016 08:07-0400 Height 165.1 cm Louisa Foreman SYSTEMS ENGINEERING MANAGER [facility] Work Phone: 12-13-2016 08:07-0400 Pulse (Heart Rate) 65 /min Louisa Foreman LPN [facility] Work Phone: Comment on above: Pattern: Regular 12-13-2016 08:07-0400 Pulse Oximetry 99 % Britta Curtis [facility] Work Phone: Comment on above: Room air 12-13-2016 08:07-0400 Respiratory Rate 16 /min Louisa Foreman SYSTEMS ENGINEERING MANAGER [facility] Work Phone: Comment on above: Pattern: Unlabored 12-13-2016 08:07-0400 SaO2% (BldA) [Mass fraction] 99 % Louisa Slaalexandra GARZAN [facility]; [facility] Work Phone: Comment on above: Room air 01-08-2016 08:45-0400 BMI (Body Mass Index) 21.3 kg/m2 Kate Fischer [facility] Work Phone: 01-08-2016 08:45-0400 Body Temperature 96.9 [degF] Kate Fischer [facility] Work Phone: Comment on above: Method: Temporal 01-08-2016 08:45-0400 Body weight 58.06 kg Kate Fischer [facility] Work Phone: 01-08-2016 08:45-0400 BP Diastolic 76 mm[Hg] Kate Fischer [facility] Work Phone: Comment on above: Patient Position: Sitting; Cuff Location : Left Arm; Cuff Size: Standard 01-08-2016 08:45-0400 BP Systolic 110 mm[Hg] Kate Fischer [facility] Work Phone: Comment on above: Patient Position: Sitting; Cuff Location : Left Arm; Cuff Size: Standard 01-08-2016 08:45-0400 BSA (Body Surface Area) 1.64 m2 Kate Gaytanrosi [facility] Work Phone: 01-08-2016 08:45-0400 Height 165.1 cm Kate Gaytanrosi [facility] Work Phone: 01-08-2016 08:45-0400 Pulse (Heart Rate) 56 /min Kate Fischer [facility] Work Phone: Comment on above: Pattern: Regular 01-08-2016 08:45-0400 Pulse Oximetry 98 % Britta Acevedo [facility] Work Phone: Comment on above: Room air 01-08-2016 08:45-0400 Respiratory Rate 16 /min Kate Gaytanrosi [facility] Work Phone: Comment on above: Pattern: Unlabored 01-08-2016 08:45-0400 SaO2% (BldA) [Mass fraction] 98 % Kate Flrosi [facility]; [facility] Work Phone: Comment on above: Room air 12-04-2015 11:16-0400 BMI (Body Mass Index) 21.47 kg/m2 Kate Aaliyah [facility] Work Phone: 12-04-2015 11:16-0400 Body Temperature 97.4 [degF] Kate Gaytanrosi [facility] Work Phone: Comment on above: Method: Temporal 12-04-2015 11:16-0400 Body weight 58.51 kg Kate Gaytanrosi [facility] Work Phone: 12-04-2015 11:16-0400 BP Diastolic 78 mm[Hg] Kate Gaytanrosi [facility] Work Phone: Comment on above: Patient Position: Sitting; Cuff Location : Left Arm; Cuff Size: Standard 12-04-2015 11:16-0400 BP Systolic 100 mm[Hg] Kate Fischer [facility] Work Phone: Comment on above: Patient Position: Sitting; Cuff Location : Left Arm; Cuff Size: Standard 12-04-2015 11:16-0400 BSA (Body Surface Area) 1.64 m2 Kate Fischer [facility] Work Phone: 12-04-2015 11:16-0400 Height 165.1 cm Kate Fischer [facility] Work Phone: 12-04-2015 11:16-0400 Pulse (Heart Rate) 52 /min Kate Fischer [facility] Work Phone: Comment on above: Pattern: Regular 12-04-2015 11:16-0400 Respiratory Rate 15 /min Kate Fischer [facility] Work Phone: Comment on above: Pattern: Unlabored 02-23-2015 09:12-0400 BMI (Body Mass Index) 23.63 kg/m2 Kate Fischer [facility] Work Phone: 02-23-2015 09:12-0400 Body Temperature 97.2 [degF] Kate Fischer [facility] Work Phone: Comment on above: Method: Oral 02-23-2015 09:12-0400 Body weight 64.41 kg Kate Fischer [facility] Work Phone: 02-23-2015 09:12-0400 BP Diastolic 76 mm[Hg] Kate Fischer [facility] Work Phone: Comment on above: Patient Position: Sitting; Cuff Location : Left Arm; Cuff Size: Standard 02-23-2015 09:12-0400 BP Systolic 102 mm[Hg] Kate Fischer [facility] Work Phone: Comment on above: Patient Position: Sitting; Cuff Location : Left Arm; Cuff Size: Standard 02-23-2015 09:12-0400 BSA (Body Surface Area) 1.71 m2 Kate Fischer [facility] Work Phone: 02-23-2015 09:12-0400 Height 165.1 cm Kate Fischer [facility] Work Phone: 02-23-2015 09:12-0400 Pulse (Heart Rate) 74 /min Kate Fischer [facility] Work Phone: Comment on above: Pattern: Regular 02-23-2015 09:12-0400 Respiratory Rate 16 /min Kate Fischer [facility] Work Phone: Comment on above: Pattern: Unlabored 10-24-2014 07:10-0400 BMI (Body Mass Index) 23.96 kg/m2 Kate Fischer [facility] Work Phone: 10-24-2014 07:10-0400 Body Temperature 98.3 [degF] Kate Fischer [facility] Work Phone: 10-24-2014 07:10-0400 Body weight 65.32 kg Kate Fischer [facility] Work Phone: 10-24-2014 07:10-0400 BP Diastolic 72 mm[Hg] Kate Fischer [facility] Work Phone: Comment on above: Patient Position: Sitting; Cuff Location : Left Arm; Cuff Size: Standard 10-24-2014 07:10-0400 BP Systolic 108 mm[Hg] Kate Fischer [facility] Work Phone: Comment on above: Patient Position: Sitting; Cuff Location : Left Arm; Cuff Size: Standard 10-24-2014 07:10-0400 BSA (Body Surface Area) 1.72 m2 Kate Fischer [facility] Work Phone: 10-24-2014 07:10-0400 Height 165.1 cm Kate Fischer [facility] Work Phone: 10-24-2014 07:10-0400 Pulse (Heart Rate) 70 /min Kate Fischer [facility] Work Phone: Comment on above: Pattern: Regular 10-24-2014 07:10-0400 Respiratory Rate 16 /min Kate Fischer [facility] Work Phone: Comment on above: Pattern: Unlabored 06-16-2014 15:31-0500 BMI (Body Mass Index) 24.85 kg/m2 Britta Acevedo [facility] Work Phone: 06-16-2014 15:31-0500 Body Temperature 97.6 [degF] Britta Acevedo [facility] Work Phone: Comment on above: Method: Oral 06-16-2014 15:31-0500 Body weight 67.73 kg Britta Acevedo [facility] Work Phone: 06-16-2014 15:31-0500 BP Diastolic 72 mm[Hg] Britta Acevedo [facility] Work Phone: Comment on above: Patient Position: Sitting; Cuff Location : Left Arm; Cuff Size: Standard 06-16-2014 15:31-0500 BP Systolic 116 mm[Hg] Britta Acevedo [facility] Work Phone: Comment on above: Patient Position: Sitting; Cuff Location : Left Arm; Cuff Size: Standard 06-16-2014 15:31-0500 BSA (Body Surface Area) 1.75 m2 Britta Acevedo [facility] Work Phone: 06-16-2014 15:31-0500 Height 165.1 cm Britta Acevedo [facility] Work Phone: 06-16-2014 15:31-0500 Pulse (Heart Rate) 74 /min Britta Acevedo [facility] Work Phone: Comment on above: Pattern: Regular 06-16-2014 15:31-0500 Pulse Oximetry 99 % Britta Acevedo [facility] Work Phone: Comment on above: Room air 06-16-2014 15:31-0500 Respiratory Rate 15 /min Britta Acevedo [facility] Work Phone: 06-16-2014 15:31-0500 SaO2% (BldA) [Mass fraction] 99 % Britta Acevedo DO Work Phone: [facility]; [facility] Work Phone: Comment on above: Room air 05-13-2014 12:02-0400 BMI (Body Mass Index) 24.85 kg/m2 Aurora Galvin [facility] Work Phone: 05-13-2014 12:02-0400 Body Temperature 97.1 [degF] Aurora Galvin [facility] Work Phone: Comment on above: Method: Oral 05-13-2014 12:02-0400 Body weight 67.73 kg Aurora Galvin [facility] Work Phone: 05-13-2014 12:02-0400 BP Diastolic 64 mm[Hg] Aurora Galvin [facility] Work Phone: Comment on above: Patient Position: Sitting; Cuff Location : Left Arm; Cuff Size: Standard 05-13-2014 12:02-0400 BP Systolic 118 mm[Hg] Aurora Galvin [facility] Work Phone: Comment on above: Patient Position: Sitting; Cuff Location : Left Arm; Cuff Size: Standard 05-13-2014 12:02-0400 BSA (Body Surface Area) 1.75 m2 Aurora Galvin [facility] Work Phone: 05-13-2014 12:02-0400 Height 165.1 cm Aurora Galvin [facility] Work Phone: 05-13-2014 12:02-0400 Pulse (Heart Rate) 76 /min Aurora Galvin [facility] Work Phone: Comment on above: Pattern: Regular 05-13-2014 12:02-0400 Pulse Oximetry 99 % Britta Curtis [facility] Work Phone: Comment on above: Room air 05-13-2014 12:02-0400 Respiratory Rate 18 /min Aurora Galvin [facility] Work Phone: Comment on above: Pattern: Unlabored 05-13-2014 12:02-0400 SaO2% (BldA) [Mass fraction] 99 % [facility]; [facility] Work Phone: Comment on above: Room air 04-02-2014 13:17-0400 BMI (Body Mass Index) 24.79 kg/m2 Chantal Go [facility] Work Phone: 04-02-2014 13:17-0400 Body Temperature 97 [degF] Chantal Go [facility] Work Phone: Comment on above: Method: Oral 04-02-2014 13:17-0400 Body weight 67.59 kg Chantal Go [facility] Work Phone: 04-02-2014 13:17-0400 BP Diastolic 68 mm[Hg] Chantal Go [facility] Work Phone: Comment on above: Patient Position: Sitting; Cuff Location : Left Arm; Cuff Size: Standard 04-02-2014 13:17-0400 BP Systolic 115 mm[Hg] Chantal Go [facility] Work Phone: Comment on above: Patient Position: Sitting; Cuff Location : Left Arm; Cuff Size: Standard 04-02-2014 13:17-0400 BSA (Body Surface Area) 1.75 m2 Chantal Go [facility] Work Phone: 04-02-2014 13:17-0400 Height 165.1 cm Chantal Go [facility] Work Phone: 04-02-2014 13:17-0400 Pulse (Heart Rate) 68 /min Chantal Go [facility] Work Phone: Comment on above: Pattern: Regular 04-02-2014 13:17-0400 Pulse Oximetry 98 % Britta Acevedo [facility] Work Phone: Comment on above: Room air 04-02-2014 13:17-0400 Respiratory Rate 16 /min Chantal Go [facility] Work Phone: Comment on above: Pattern: Unlabored 04-02-2014 13:17-0400 SaO2% (BldA) [Mass fraction] 98 % Chantal Go [facility]; [facility] Work Phone: Comment on above: Room air 03-21-2014 13:34-0400 BMI (Body Mass Index) 24.79 kg/m2 Chantal Go [facility] Work Phone: 03-21-2014 13:34-0400 Body Temperature 98.2 [degF] Chantal Go [facility] Work Phone: Comment on above: Method: Oral 03-21-2014 13:34-0400 Body weight 67.59 kg Chantal oG [facility] Work Phone: 03-21-2014 13:34-0400 BP Diastolic 62 mm[Hg] Chantal Go [facility] Work Phone: Comment on above: Patient Position: Sitting; Cuff Location : Left Arm; Cuff Size: Standard 03-21-2014 13:34-0400 BP Systolic 102 mm[Hg] Chantal Go [facility] Work Phone: Comment on above: Patient Position: Sitting; Cuff Location : Left Arm; Cuff Size: Standard 03-21-2014 13:34-0400 BSA (Body Surface Area) 1.75 m2 Chantal Go [facility] Work Phone: 03-21-2014 13:34-0400 Height 165.1 cm Chantal Go [facility] Work Phone: 03-21-2014 13:34-0400 Pulse (Heart Rate) 68 /min Chantal Go [facility] Work Phone: Comment on above: Pattern: Regular 03-21-2014 13:34-0400 Pulse Oximetry 98 % Britta Acevedo [facility] Work Phone: Comment on above: Room air 03-21-2014 13:34-0400 Respiratory Rate 16 /min Chantal Go [facility] Work Phone: Comment on above: Pattern: Unlabored 03-21-2014 13:34-0400 SaO2% (BldA) [Mass fraction] 98 % Chantal Go [facility]; [facility] Work Phone: Comment on above: Room air 05-22-2013 15:31-0400 BMI (Body Mass Index) 23.63 kg/m2 Chantal Go [facility] Work Phone: 05-22-2013 15:31-0400 Body weight 64.41 kg Chantal Go [facility] Work Phone: 05-22-2013 15:31-0400 BP Diastolic 68 mm[Hg] Chantal Go [facility] Work Phone: Comment on above: Patient Position: Sitting; Cuff Location : Left Arm; Cuff Size: Standard 05-22-2013 15:31-0400 BP Systolic 116 mm[Hg] Chantal Go [facility] Work Phone: Comment on above: Patient Position: Sitting; Cuff Location : Left Arm; Cuff Size: Standard 05-22-2013 15:31-0400 BSA (Body Surface Area) 1.71 m2 Chantal Go [facility] Work Phone: 05-22-2013 15:31-0400 Height 165.1 cm Chantal Go [facility] Work Phone: 05-22-2013 15:31-0400 Pulse (Heart Rate) 68 /min Chantal Go [facility] Work Phone: Comment on above: Pattern: Regular 05-22-2013 15:31-0400 Respiratory Rate 16 /min Chantal Go [facility] Work Phone: Comment on above: Pattern: Unlabored 08-03-2012 15:20-0500 BMI (Body Mass Index) 23.63 kg/m2 Britta Acevedo [facility] Work Phone: 08-03-2012 15:20-0500 Body Temperature 98.9 [degF] Britta Acevedo [facility] Work Phone: Comment on above: Method: Oral 08-03-2012 15:20-0500 Body weight 64.41 kg Britta Acevedo [facility] Work Phone: 08-03-2012 15:20-0500 BP Diastolic 68 mm[Hg] Britta Acevedo [facility] Work Phone: Comment on above: Patient Position: Sitting; Cuff Location : Left Arm; Cuff Size: Standard 08-03-2012 15:20-0500 BP Systolic 110 mm[Hg] Britta Acevedo [facility] Work Phone: Comment on above: Patient Position: Sitting; Cuff Location : Left Arm; Cuff Size: Standard 08-03-2012 15:20-0500 BSA (Body Surface Area) 1.71 m2 Britta Acevedo [facility] Work Phone: 08-03-2012 15:20-0500 Height 165.1 cm Britta Acevedo [facility] Work Phone: 08-03-2012 15:20-0500 Pulse (Heart Rate) 80 /min Britta Acevedo [facility] Work Phone: Comment on above: Pattern: Regular 08-03-2012 15:20-0500 Pulse Oximetry 98 % Britta Acevedo [facility] Work Phone: Comment on above: Room air 08-03-2012 15:20-0500 SaO2% (BldA) [Mass fraction] 98 % Britta Acevedo DO Work Phone: [facility]; [facility] Work Phone: Comment on above: Room air 07-12-2012 07:33-0500 BMI (Body Mass Index) 23.63 kg/m2 VEGA Gutierrez LPN [facility] Work Phone: 07-12-2012 07:33-0500 Body Temperature 98.6 [degF] VEGA Gutierrez LPN [facility] Work Phone: Comment on above: Method: Oral 07-12-2012 07:33-0500 Body weight 64.41 kg VEGA Gutierrez LPN [facility] Work Phone: 07-12-2012 07:33-0500 BP Diastolic 68 mm[Hg] VEGA Gutierrez LPN [facility] Work Phone: Comment on above: Patient Position: Sitting; Cuff Location : Left Arm; Cuff Size: Standard 07-12-2012 07:33-0500 BP Systolic 100 mm[Hg] VEGA Gutierrez LPN [facility] Work Phone: Comment on above: Patient Position: Sitting; Cuff Location : Left Arm; Cuff Size: Standard 07-12-2012 07:33-0500 BSA (Body Surface Area) 1.71 m2 VEGA Gutierrez LPN [facility] Work Phone: 07-12-2012 07:33-0500 Height 165.1 cm VEGA Gutierrez LPN [facility] Work Phone: 07-12-2012 07:33-0500 Pulse (Heart Rate) 74 /min VEGA Gutierrez LPN [facility] Work Phone: Comment on above: Pattern: Regular 07-12-2012 07:33-0500 Respiratory Rate 18 /min VEGA Gutierrez LPN [facility] Work Phone: Comment on above: Pattern: Unlabored 06-22-2012 08:46-0500 BMI (Body Mass Index) 23.68 kg/m2 Brittamartina Acevedo [facility] Work Phone: 06-22-2012 08:46-0500 Body Temperature 98.8 [degF] Brittamartina Acevedo [facility] Work Phone: Comment on above: Method: Oral 06-22-2012 08:46-0500 Body weight 64.55 kg Britta Aceevdo [facility] Work Phone: 06-22-2012 08:46-0500 BP Diastolic 70 mm[Hg] Brittamartina Acevedo [facility] Work Phone: Comment on above: Patient Position: Sitting; Cuff Location : Left Arm; Cuff Size: Standard 06-22-2012 08:46-0500 BP Systolic 110 mm[Hg] Brittamartina Acevedo [facility] Work Phone: Comment on above: Patient Position: Sitting; Cuff Location : Left Arm; Cuff Size: Standard 06-22-2012 08:46-0500 BSA (Body Surface Area) 1.71 m2 Britta Acevedo [facility] Work Phone: 06-22-2012 08:46-0500 Height 165.1 cm Britta Acevedo [facility] Work Phone: 06-22-2012 08:46-0500 Pulse (Heart Rate) 72 /min Britta Acevedo [facility] Work Phone: Comment on above: Pattern: Regular 06-22-2012 08:46-0500 Respiratory Rate 16 /min Britta Acevedo [facility] Work Phone: Comment on above: Pattern: Unlabored 10-24-2011 10:09-0400 BMI (Body Mass Index) 23.68 kg/m2 Britta Acevedo [facility] Work Phone: 10-24-2011 10:09-0400 Body Temperature 98.7 [degF] Britta Acevedo [facility] Work Phone: Comment on above: Method: Oral 10-24-2011 10:09-0400 Body weight 64.55 kg Britta Acevedo [facility] Work Phone: 10-24-2011 10:09-0400 BP Diastolic 72 mm[Hg] Britta Acevedo [facility] Work Phone: Comment on above: Patient Position: Sitting; Cuff Location : Left Arm; Cuff Size: Standard 10-24-2011 10:09-0400 BP Systolic 112 mm[Hg] Britta Acevedo [facility] Work Phone: Comment on above: Patient Position: Sitting; Cuff Location : Left Arm; Cuff Size: Standard 10-24-2011 10:09-0400 BSA (Body Surface Area) 1.71 m2 Britta Acevedo [facility] Work Phone: 10-24-2011 10:09-0400 Height 165.1 cm Britta Acevedo [facility] Work Phone: 10-24-2011 10:090400 Pulse (Heart Rate) 88 /min Britta Acevedo [facility] Work Phone: Comment on above: Pattern: Regular 10-24-2011 10:090400 Pulse Oximetry 98 % Britta Acevedo [facility] Work Phone: Comment on above: Room air 10-24-2011 10:090400 Respiratory Rate 16 /min Britta Acevedo [facility] Work Phone: 10-24-2011 10:09-0400 SaO2% (BldA) [Mass fraction] 98 % Britta Acevedo DO Work Phone: [facility]; [facility] Work Phone: Comment on above: Room air 07-15-2011 13:25-0500 BMI (Body Mass Index) 23.85 kg/m2 Britta Acevedo [facility] Work Phone: 07-15-2011 13:25-0500 Body Temperature 97.9 [degF] Britta Acevedo [facility] Work Phone: Comment on above: Method: Oral 07-15-2011 13:25-0500 Body weight 65.01 kg Britta Acevedo [facility] Work Phone: 07-15-2011 13:25-0500 BP Diastolic 70 mm[Hg] Britta Acevedo [facility] Work Phone: Comment on above: Patient Position: Sitting; Cuff Location : Left Arm; Cuff Size: Standard 07-15-2011 13:25-0500 BP Systolic 110 mm[Hg] Britta Acevedo [facility] Work Phone: Comment on above: Patient Position: Sitting; Cuff Location : Left Arm; Cuff Size: Standard 07-15-2011 13:25-0500 BSA (Body Surface Area) 1.72 m2 Britta Acevedo [facility] Work Phone: 07-15-2011 13:25-0500 Height 165.1 cm Britta Acevedo [facility] Work Phone: 07-15-2011 13:25-0500 Pulse (Heart Rate) 76 /min Britta Acevedo [facility] Work Phone: Comment on above: Pattern: Regular 07-15-2011 13:25-0500 Pulse Oximetry 98 % Britta Acevedo [facility] Work Phone: Comment on above: Room air 07-15-2011 13:25-0500 Respiratory Rate 16 /min Britta Acevedo [facility] Work Phone: 07-15-2011 13:25-0500 SaO2% (BldA) [Mass fraction] 98 % Britta Acevedo DO Work Phone: [facility]; [facility] Work Phone: Comment on above: Room air 02-18-2011 13:21-0400 BMI (Body Mass Index) 23.85 kg/m2 Ale Kim RN [facility] Work Phone: 02-18-2011 13:21-040 Body weight 65.01 kg Ale Kim RN [facility] Work Phone: 02-18-2011 13:21-0400 BP Diastolic 60 mm[Hg] Ale Kim RN [facility] Work Phone: Comment on above: Patient Position: Sitting; Cuff Location : Left Arm; Cuff Size: Large 02-18-2011 13:21-0400 BP Systolic 102 mm[Hg] Ale Kim RN [facility] Work Phone: Comment on above: Patient Position: Sitting; Cuff Location : Left Arm; Cuff Size: Large 02-18-2011 13:21-0400 BSA (Body Surface Area) 1.72 m2 Ale Kim RN [facility] Work Phone: 02-18-2011 13:21-0400 Height 165.1 cm Ale Kim RN [facility] Work Phone: 02-18-2011 13:21-0400 Pulse (Heart Rate) 68 /min Ale Kim RN [facility] Work Phone: Comment on above: Pattern: Regular 02-18-2011 13:21-0400 Respiratory Rate 20 /min Ale Kim RN [facility] Work Phone: Comment on above: Pattern: Unlabored 09-03-2010 11:30-0500 Body Temperature 99 [degF] No Ariza LPN [facility] Work Phone: Comment on above: Method: Oral 09-03-2010 11:30-0500 Body weight 64.41 kg No Ariza LPN [facility] Work Phone: 09-03-2010 11:30-0500 BP Diastolic 74 mm[Hg] No Ariza SYSTEM[employer] ENGINEERING MANAGER [facility] Work Phone: Comment on above: Patient Position: Sitting; Cuff Location : Left Arm; Cuff Size: Standard 09-03-2010 11:30-0500 BP Systolic 112 mm[Hg] No Ariza SYSTEMS ENGINEERING MANAGER [facility] Work Phone: Comment on above: Patient Position: Sitting; Cuff Location : Left Arm; Cuff Size: Standard 09-03-2010 11:30-0500 Pulse (Heart Rate) 60 /min No Ariza LPN [facility] Work Phone: Comment on above: Pattern: Regular 09-03-2010 11:30-0500 Respiratory Rate 16 /min No Ariza LPN [facility] Work Phone: Comment on above: Pattern: Unlabored 08-10-2010 08:39-0500 Body Temperature 97.1 [degF] Brittamartina Acevedo [facility] Work Phone: Comment on above: Method: Oral 08-10-2010 08:39-0500 Body weight 64.41 kg Britta Acevedo [facility] Work Phone: 08-10-2010 08:39-0500 BP Diastolic 72 mm[Hg] Britta Acevedo [facility] Work Phone: Comment on above: Patient Position: Sitting; Cuff Location : Left Arm; Cuff Size: Standard 08-10-2010 08:39-0500 BP Systolic 112 mm[Hg] Britta Acevedo [facility] Work Phone: Comment on above: Patient Position: Sitting; Cuff Location : Left Arm; Cuff Size: Standard 08-10-2010 08:39-0500 Pulse (Heart Rate) 76 /min Britta Acevedo [facility] Work Phone: Comment on above: Pattern: Regular 08-10-2010 08:39-0500 Respiratory Rate 17 /min Britta Acevedo [facility] Work Phone: Comment on above: Pattern: Unlabored 06-30-2010 11:31-0500 Body Temperature 98.3 [degF] Kate Aaliyah [facility] Work Phone: 06-30-2010 11:31-0500 Body weight 64.41 kg Kate Aaliyah [facility] Work Phone: 06-30-2010 11:31-0500 BP Diastolic 74 mm[Hg] Kate Fischer [facility] Work Phone: Comment on above: Patient Position: Sitting; Cuff Location : Left Arm; Cuff Size: Standard 06-30-2010 11:31-0500 BP Systolic 110 mm[Hg] Kate Aaliyah [facility] Work Phone: Comment on above: Patient Position: Sitting; Cuff Location : Left Arm; Cuff Size: Standard 06-30-2010 11:31-0500 Pulse (Heart Rate) 76 /min Kate Fischer [facility] Work Phone: Comment on above: Pattern: Regular 06-30-2010 11:31-0500 Respiratory Rate 16 /min Kate Fischer [facility] Work Phone: Comment on above: Pattern: Unlabored 06-07-2010 09:55-0400 Body Temperature 97.9 [degF] Kate Fischer [facility] Work Phone: 06-07-2010 09:55-0400 Body weight 66.23 kg Kate Fischer [facility] Work Phone: 06-07-2010 09:55-0400 BP Diastolic 80 mm[Hg[facility] Comment on above: Patient Position: Sitting; Cuff Location : Left Arm; Cuff Size: Standard 06-07-2010 09:55-0400 BP Systolic 122 mm[Hg] Kate Fischer [facility] Work Phone: Comment on above: Patient Position: Sitting; Cuff Location : Left Arm; Cuff Size: Standard 06-07-2010 09:55-0400 Pulse (Heart Rate) 72 /min Kate Fischer [facility] Work Phone: Comment on above: Pattern: Regular 06-07-2010 09:55-0400 Respiratory Rate 18 /min Kate Fischer [facility] Work Phone: Comment on above: Pattern: Unlabored 05-21-2010 09:10-0400 Body Temperature 97.5 [degF] Kate Fischer [facility] Work Phone: 05-21-2010 09:10-0400 Body weight 66.23 kg Kate Fischer [facility] Work Phone: 05-21-2010 09:10-0400 BP Diastolic 62 mm[Hg] Kate Fischer [facility] Work Phone: Comment on above: Patient Position: Sitting; Cuff Location : Left Arm; Cuff Size: Large 05-21-2010 09:10-0400 BP Systolic 112 mm[Hg] Kate Fischer [facility] Work Phone: Comment on above: Patient Position: Sitting; Cuff Location : Left Arm; Cuff Size: Large 05-21-2010 09:10-0400 Pulse (Heart Rate) 80 /min Kate Fischer [facility] Work Phone: Comment on above: Pattern: Regular 05-21-2010 09:10-0400 Respiratory Rate 16 /min Kate Fischer [facility] Work Phone: Comment on above: Pattern: Unlabored 11-09-2009 14:43-0400 Body Temperature 98 [degF] Ale Kim RN [facility] Work Phone: Comment on above: Method: Oral 11-09-2009 14:43-0400 BP Diastolic 78 mm[Hg] Ale Kim RN [facility] Work Phone: Comment on above: Patient Position: Sitting; Cuff Location : Left Arm; Cuff Size: Large 11-09-2009 14:43-0400 BP Systolic 122 mm[Hg] Ale Kim RN [facility] Work Phone: Comment on above: Patient Position: Sitting; Cuff Location : Left Arm; Cuff Size: Large 11-09-2009 14:43-0400 Pulse (Heart Rate) 64 /min Ale Kim RN [facility] Work Phone: Comment on above: Pattern: Regular 11-09-2009 14:43-0400 Respiratory Rate 20 /min Ale Kim RN [facility] Work Phone: Comment on above: Pattern: Unlabored 11-05-2009 08:42-0400 Body Temperature 99.2 [degF] VEGA Gutierrez LPN [facility] Work Phone: Comment on above: Method: Oral 11-05-2009 08:42-0400 Body weight 65.32 kg VEGA Gutierrez LPN [facility] Work Phone: 11-05-2009 08:42-0400 BP Diastolic 70 mm[Hg] VEGA Gutierrez LPN [facility] Work Phone: Comment on above: Patient Position: Sitting; Cuff Location : Left Arm; Cuff Size: Large 11-05-2009 08:42-0400 BP Systolic 122 mm[Hg] VEGA Gutierrez LPN [facility] Work Phone: Comment on above: Patient Position: Sitting; Cuff Location : Left Arm; Cuff Size: Large 11-05-2009 08:42-0400 Pulse (Heart Rate) 72 /min VEGA Gutierrez LPN [facility] Work Phone: Comment on above: Pattern: Regular 11-05-2009 08:42-0400 Pulse Oximetry 98 % Britta Acevedo [facility] Work Phone: Comment on above: Room air 11-05-2009 08:42-0400 Respiratory Rate 20 /min VEGA Gutierrez MONO [facility] Work Phone: Comment on above: Pattern: Unlabored 11-05-2009 08:42-0400 SaO2% (BldA) [Mass fraction] 98 % VEGA Gutierrez MONO [facility]; [facility] Work Phone: Comment on above: Room air 02-10-2009 09:09-0400 Body Temperature 98.1 [degF] Kate Fischer [facility] Work Phone: Comment on above: Method: Undefined 02-10-2009 09:09-0400 Body weight 65.32 kg Kate Fischer [facility] Work Phone: 02-10-2009 09:09-0400 BP Diastolic 76 mm[Hg] Kate Fischer [facility] Work Phone: Comment on above: Patient Position: Sitting; Cuff Location : Left Arm; Cuff Size: Standard 02-10-2009 09:09-0400 BP Systolic 120 mm[Hg] Kate Fischer [facility] Work Phone: Comment on above: Patient Position: Sitting; Cuff Location : Left Arm; Cuff Size: Standard 02-10-2009 09:09-0400 Head Circumference 0 cm Britta Acevedo [facility] Work Phone: 02-10-2009 09:09-0400 Head Occipital-frontal circumference 0 cm Kate Fischer [facility]; [facility] Work Phone: 02-10-2009 09:09-0400 Height 0 cm Kate Fischer [facility] Work Phone: 02-10-2009 09:09-0400 Pulse (Heart Rate) 80 /min Kate Fischer [facility] Work Phone: Comment on above: Pattern: Regular 02-10-2009 09:09-0400 Respiratory Rate 16 /min Kate Fischer [facility] Work Phone: Comment on above: Pattern: Undefined 11-10-2008 15:31-0400 Body Temperature 98.3 [degF] Kate Fischer [facility] Work Phone: Comment on above: Method: Undefined 11-10-2008 15:31-0400 Body weight 0 kg Kate Fischer [facility] Work Phone: 11-10-2008 15:31-0400 BP Diastolic 58 mm[Hg] Kate Fischer [facility] Work Phone: Comment on above: Patient Position: Sitting; Cuff Location : Left Arm; Cuff Size: Large 11-10-2008 15:31-0400 BP Systolic 112 mm[Hg] Kate Fischer [facility] Work Phone: Comment on above: Patient Position: Sitting; Cuff Location : Left Arm; Cuff Size: Large 11-10-2008 15:31-0400 Head Circumference 0 cm Britta Acevedo [facility] Work Phone: 11-10-2008 15:31-0400 Head Occipital-frontal circumference 0 cm Kate Fischer [facility]; [facility] Work Phone: 11-10-2008 15:31-0400 Height 0 cm Kate Fischer [facility] Work Phone: 11-10-2008 15:31-0400 Pulse (Heart Rate) 100 /min Kate Fischer [facility] Work Phone: Comment on above: Pattern: Regular 11-10-2008 15:31-0400 Respiratory Rate 16 /min Kate Fischer [facility] Work Phone: Comment on above: Pattern: Undefined 09-24-2008 11:53-0500 Body Temperature 98.3 [degF] Kate Fischer [facility] Work Phone: Comment on above: Method: Undefined 09-24-2008 11:53-0500 Body weight 66.23 kg Kate Fischer [facility] Work Phone: 09-24-2008 11:53-0500 BP Diastolic 74 mm[Hg] Kate Gaytansabagasper [facility] Work Phone: Comment on above: Patient Position: Sitting; Cuff Location : Right Arm; Cuff Size: Standard 09-24-2008 11:53-0500 BP Systolic 120 mm[Hg] Kate Fischer [facility] Work Phone: Comment on above: Patient Position: Sitting; Cuff Location : Right Arm; Cuff Size: Standard 09-24-2008 11:53-0500 Head Circumference 0 cm Britta Acevedo [facility] Work Phone: 09-24-2008 11:53-0500 Head Occipital-frontal circumference 0 cm Kate Fischer [facility]; [facility] Work Phone: 09-24-2008 11:53-0500 Height 0 cm Kate Fischer [facility] Work Phone: 09-24-2008 11:53-0500 Pulse (Heart Rate) 76 /min Kate Fischer [facility] Work Phone: Comment on above: Pattern: Regular 09-24-2008 11:53-0500 Respiratory Rate 16 /min Kate Fischer [facility] Work Phone: Comment on above: Pattern: Undefined 09-08-2008 10:53-0500 Body Temperature 98.3 [degF] Kate Fischer [facility] Work Phone: Comment on above: Method: Undefined 09-08-2008 10:53-0500 Body weight 66.23 kg Kate Fischer [facility] Work Phone: 09-08-2008 10:53-0500 BP Diastolic 62 mm[Hg] Kate Fischer [facility] Work Phone: Comment on above: Patient Position: Sitting; Cuff Location : Right Arm; Cuff Size: Large 09-08-2008 10:53-0500 BP Systolic 112 mm[Hg] Kate Fischer [facility] Work Phone: Comment on above: Patient Position: Sitting; Cuff Location : Right Arm; Cuff Size: Large 09-08-2008 10:53-0500 Head Circumference 0 cm Britta Acevedo [facility] Work Phone: 09-08-2008 10:53-0500 Head Occipital-frontal circumference 0 cm Kate Fischer [facility]; [facility] Work Phone: 09-08-2008 10:53-0500 Height 0 cm Kate Fischer [facility] Work Phone: 09-08-2008 10:53-0500 Pulse (Heart Rate) 76 /min Kate Fischer [facility] Work Phone: Comment on above: Pattern: Regular 09-08-2008 10:53-0500 Respiratory Rate 16 /min Kate Fischer [facility] Work Phone: Comment on above: Pattern: Undefined 07-07-2008 14:22-0500 Body Temperature 96.7 [degF] Kate Fischer [facility] Work Phone: Comment on above: Method: Undefined 07-07-2008 14:22-0500 Body weight 0 kg Kate Fischer [facility] Work Phone: 07-07-2008 14:22-0500 BP Diastolic 62 mm[Hg] Kate Fischer [facility] Work Phone: Comment on above: Patient Position: Sitting; Cuff Location : Right Arm; Cuff Size: Large 07-07-2008 14:22-0500 BP Systolic 114 mm[Hg] Kate Fischer [facility] Work Phone: Comment on above: Patient Position: Sitting; Cuff Location : Right Arm; Cuff Size: Large 07-07-2008 14:22-0500 Head Circumference 0 cm Britta Acevedo [facility] Work Phone: 07-07-2008 14:22-0500 Head Occipital-frontal circumference 0 cm Kate Fischer [facility]; [facility] Work Phone: 07-07-2008 14:22-0500 Height 0 cm Kate Lagosgasper [facility] Work Phone: 07-07-2008 14:22-0500 Pulse (Heart Rate) 80 /min Kate Fischer [facility] Work Phone: Comment on above: Pattern: Regular 07-07-2008 14:22-0500 Respiratory Rate 16 /min Kate Fischer [facility] Work Phone: Comment on above: Pattern: Undefined 06-17-2008 11:17-0500 Body Temperature 98.4 [degF] Kate Fischer [facility] Work Phone: Comment on above: Method: Undefined 06-17-2008 11:17-0500 Body weight 0 kg Kate Fischer [facility] Work Phone: 06-17-2008 11:17-0500 BP Diastolic 68 mm[Hg] Kate Fischer [facility] Work Phone: Comment on above: Patient Position: Sitting; Cuff Location : Right Arm; Cuff Size: Standard 06-17-2008 11:17-0500 BP Systolic 124 mm[Hg] Kate Fischer [facility] Work Phone: Comment on above: Patient Position: Sitting; Cuff Location : Right Arm; Cuff Size: Standard 06-17-2008 11:17-0500 Head Circumference 0 cm Britta Acevedo [facility] Work Phone: 06-17-2008 11:17-0500 Head Occipital-frontal circumference 0 cm Kate Fischer [facility]; [facility] Work Phone: 06-17-2008 11:17-0500 Height 0 cm Kate Fischer [facility] Work Phone: 06-17-2008 11:17-0500 Pulse (Heart Rate) 88 /min Kate Fischer [facility] Work Phone: Comment on above: Pattern: Regular 06-17-2008 11:17-0500 Respiratory Rate 16 /min Kate Fischer [facility] Work Phone: Comment on above: Pattern: Undefined 09-11-2007 10:03-0500 Body Temperature 98.9 [degF] Kate Fischer [facility] Work Phone: Comment on above: Method: Oral 09-11-2007 10:03-0500 Body weight 0 kg Kate Fischer [facility] Work Phone: 09-11-2007 10:03-0500 BP Diastolic 60 mm[Hg] Kate Fischer [facility] Work Phone: Comment on above: Patient Position: Sitting; Cuff Location : Left Arm; Cuff Size: Standard 09-11-2007 10:03-0500 BP Systolic 90 mm[Hg] Kate Fischer [facility] Work Phone: Comment on above: Patient Position: Sitting; Cuff Location : Left Arm; Cuff Size: Standard 09-11-2007 10:03-0500 Head Circumference 0 cm Britta Acevedo [facility] Work Phone: 09-11-2007 10:03-0500 Head Occipital-frontal circumference 0 cm Kate Gaytanrosi [facility]; [facility] Work Phone: 09-11-2007 10:03-0500 Height 0 cm Kate Gaytanrosi [facility] Work Phone: 09-11-2007 10:03-0500 Pulse (Heart Rate) 80 /min Kate [facility] Work Phone: Comment on above: Pattern: Regular 09-11-2007 10:03-0500 Respiratory Rate 16 /min Kate Gaytanrosi [facility] Work Phone: Comment on above: Pattern: Unlabored 07-04-2007 08:23-0500 Body Temperature 98.2 [degF] Kate Gaytanrosi [facility] Work Phone: Comment on above: Method: Oral 07-04-2007 08:23-0500 Body weight 0 kg Kate Fischer [facility] Work Phone: 07-04-2007 08:23-0500 BP Diastolic 78 mm[Hg] Kate Aaliyah [facility] Work Phone: Comment on above: Patient Position: Sitting; Cuff Location : Left Arm; Cuff Size: Standard 07-04-2007 08:23-0500 BP Systolic 112 mm[Hg] Kate Fischer [facility] Work Phone: Comment on above: Patient Position: Sitting; Cuff Location : Left Arm; Cuff Size: Standard 07-04-2007 08:23-0500 Head Circumference 0 cm Britta Acevedo [facility] Work Phone: 07-04-2007 08:23-0500 Head Occipital-frontal circumference 0 cm Kate Lorenzo [facility]; [facility] Work Phone: 07-04-2007 08:23-0500 Height 0 cm Kate Fischer [facility] Work Phone: 07-04-2007 08:23-0500 Pulse (Heart Rate) 80 /min [facility] Fischer [facility] Work Phone: Comment on above: Pattern: Regular 07-04-2007 08:23-0500 Respiratory Rate 16 /min Kate Fischer [facility] Work Phone: Comment on above: Pattern: Unlabored 01-10-2007 10:30-0400 Body Temperature 99.1 [degF] Iris Durand RN [facility] Work Phone: Comment on above: Method: Oral 01-10-2007 10:30-0400 Body weight 0 kg Iris Durand RN [facility] Work Phone: 01-10-2007 10:30-0400 BP Diastolic 64 mm[Hg] Iris Durand RN [facility] Work Phone: Comment on above: Patient Position: Sitting; Cuff Location : Left Arm; Cuff Size: Standard 01-10-2007 10:30-0400 BP Systolic 106 mm[Hg] Iris Durand RN [facility] Work Phone: Comment on above: Patient Position: Sitting; Cuff Location : Left Arm; Cuff Size: Standard 01-10-2007 10:30-0400 Head Circumference 0 cm Britta Acevedo [facility] Work Phone: 01-10-2007 10:30-0400 Head Occipital-frontal circumference 0 cm Iris Durand RN [facility]; [facility] Work Phone: 01-10-2007 10:30-0400 Height 0 cm Iris Durand RN [facility] Work Phone: 01-10-2007 10:30-0400 Respiratory Rate 16 /min Iris Durand RN [facility] Work Phone: Comment on above: Pattern: Unlabored 10-17-2006 10:58-0500 Body weight 0 kg Aishwarya Matos [facility] Work Phone: 10-17-2006 10:58-0500 BP Diastolic 64 mm[Hg] Aishwarya Vyasgett [facility] Work Phone: Comment on above: Patient Position: Sitting; Cuff Location : Left Arm; Cuff Size: Standard 10-17-2006 10:58-0500 BP Systolic 98 mm[Hg] [facility] Work Phone: Comment on above: Patient Position: Sitting; Cuff Location : Left Arm; Cuff Size: Standard 10-17-2006 10:58-0500 Head Circumference 0 cm Britta Acevedo [facility] Work Phone: 10-17-2006 10:58-0500 Head Occipital-frontal circumference 0 cm Aishwarya Matos [facility]; [facility] Work Phone: 10-17-2006 10:58-0500 Height 0 cm Aishwarya Matos [facility] Work Phone: 10-17-2006 10:58-0500 Pulse (Heart Rate) 66 /min Aishwarya Matos [facility] Work Phone: Comment on above: Pattern: Regular 10-17-2006 10:58-0500 Respiratory Rate 16 /min Aishwarya Matos [facility] Work Phone: Comment on above: Pattern: Unlabored Encounters Encounter Date Encounter Type Care Provider Facility Start: 12-13-2016 End: 12-13-2016 Office outpatient visit 15 minutes Britta Acevedo [facility] Start: 03-11-2016 End: 03-11-2016 Historical Summary Britta Lorenzo [facility] [employer] [facility] Start: 01-08-2016 End: 01-10-2016 Office outpatient visit 15 minutes Britta Lorenzo Internal [facility] Start: 12-07-2015 End: 12-07-2015 Phone Encounter Britta Curtisroselyn Lorenzo [facility] Start: 12-04-2015 End: 12-06-2015 Office outpatient visit 25 minutes Britta Acevedo [facility] Start: 12-01-2015 End: 12-01-2015 Lab Order Britta Lorenzo [facility] Start: 08-12-2015 End: 08-12-2015 Office outpatient visit 25 minutes Britta Acevedo [facility] Start: 02-23-2015 End: 02-23-2015 Office outpatient visit 25 minutes Britta Acevedo [facility] Start: 01-16-2015 End: 01-16-2015 Phone Encounter Britta Lorenzo [facility] Start: 10-24-2014 End: 10-24-2014 Office outpatient visit 15 minutes Britta Acevedo [facility] Start: 06-16-2014 End: 06-16-2014 Office outpatient visit 15 minutes Britta Acevedo [facility] Start: 05-13-2014 End: 05-13-2014 Phone Encounter Britta Curtis Lorenzo [facility] Start: 05-13-2014 End: 05-13-2014 Office outpatient visit 15 minutes Britta Acevedo [facility] Start: 04-02-2014 End: 04-02-2014 Office outpatient visit 25 minutes Britta Acevedo [facility] Start: 03-21-2014 End: 03-21-2014 Office outpatient visit 25 minutes Britta Acevedo [facility] Start: 05-22-2013 End: 05-23-2013 Patient encounter procedure Britta Lorenzo Internal [facility] Start: 08-03-2012 End: 08-03-2012 Office outpatient visit 15 minutes Britta Acevedo [facility] Start: 07-12-2012 End: 07-12-2012 Patient encounter procedure Britta Acevedo [facility] Start: 06-22-2012 End: 06-22-2012 Office outpatient visit 15 minutes Britta Acevedo [facility] Start: 10-24-2011 End: 10-24-2011 Office outpatient visit 25 minutes Britta Acevedo [facility] Start: 07-15-2011 End: 07-15-2011 Office outpatient visit 25 minutes Brittamartina Rajputon [facility] Start: 02-18-2011 End: 02-18-2011 Patient encounter procedure Brittamartina Rajputon [facility] Start: 09-03-2010 End: 09-03-2010 Patient encounter procedure Brittamartina Rajputroselyn Lorenzo [facility] Start: 08-10-2010 End: 08-10-2010 Office outpatient visit 15 minutes Britta Curtisroselyn Lorenzo Internal [facility] Start: 06-30-2010 End: 06-30-2010 Patient encounter procedure Britta Rajputon [facility] Start: 06-07-2010 End: 06-07-2010 Patient encounter procedure Brittamartina Rajputon [facility] Start: 05-21-2010 End: 05-21-2010 Patient encounter procedure Britta Curtis [facility] Start: 11-09-2009 End: 11-09-2009 Patient encounter procedure Britta Curtis [facility] Start: 11-05-2009 End: 11-05-2009 Patient encounter procedure Britta Curtis [facility] Start: 02-10-2009 End: 02-10-2009 Patient encounter procedure Brittamartina Rajputon [facility] Start: 11-10-2008 End: 11-10-2008 Patient encounter procedure Britta Curtis [facility] Start: 10-02-2008 End: 10-03-2008 Patient encounter procedure Brittamartina Rajputon [facility] Start: 09-30-2008 End: 09-30-2008 Office outpatient visit 10 minutes Britta Curtisroselyn Lorenzo [facility] Start: 09-24-2008 End: 09-24-2008 Patient encounter procedure Britta Curtis [facility] Start: 09-08-2008 End: 09-08-2008 Patient encounter procedure Brittamartina Rajputon [facility] Start: 07-07-2008 End: 07-07-2008 Patient encounter procedure Britta Curtis [facility] Start: 06-17-2008 End: 06-17-2008 Patient encounter procedure Britta Curtis [facility] Start: 09-11-2007 End: 09-11-2007 Patient encounter procedure Britta Curtis [facility] Start: 07-04-2007 End: 07-04-2007 Patient encounter procedure Britta Acevedo [facility] Start: 01-10-2007 End: 01-11-2007 Patient encounter procedure Brittamartina Acevedo [facility] Start: 10-17-2006 End: 10-17-2006 Patient encounter procedure Britta Acevedo [facility] Start: 07-27-2006 End: 07-27-2006 Patient encounter procedure Britta Acevedo [facility] Start: 07-25-2006 End: 07-25-2006 Historical Summary Britta Acevedo [facility] [employer] [facility] Procedures Date Procedure Procedure Detail Performing Clinician Start: 04-26-2022 End: 04-26-2022 Car Greaser Office Visit Report Procedure Note: See Note; NOTES: [facility] [address] [place] [address] OFFICE VISIT Date of Service: 04/26/22 MR#: [id number] Acct: [id number] Name: PRISCILA RICHARDSON Rep #: [id number] : 1985 Provider: Dr. 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 Date Name GA/Weeks Outcome Route Bth Weight Infant [facility] 07/16/20 Meron 40 live - full term Female epidural [facility] Tiffany 04/14/22 Maira 38 live - full term 8lbs 5oz Female spinal [facility] Sonya Menard Delivery Date: 07/16/20 Last Updated by: Mariana English arrest of descent Delivery Date: 04/14/22 Last Updated by: Federica Alexandra [facility] 39 Post HPI 2WK PP: Details: [...] DO Work Phone: Start: 04-08-2022 End: 04-13-2022 Car Greaser Office Visit Report Procedure Note: See Note; NOTES: [facility] [address] [place] [address] OFFICE VISIT Date of Service: 04/08/22 MR#: [id number] Acct: [id number] Name: PRISCILA RICHARDSON Rep #: [id number] : 1985 Provider: Dr. Sonya valentino MD Age/Sex: 36/F Location: [facility] Status: Signed Intake Vital Signs 10/29/21 15:52 [...] 40 live - full term Female epidural [facility] Tiffany Delivery Date: 07/16/20 Last Updated by: [...] and meclazine ordered. will be going to [place] for vacation 01/26/22 -???-???-???-???-???-???-??? -???-???-???-???-???- 28w 0d [...] fm no regular ctx gbs done growth ordered 04/01/22 -???-???-???-???-???-???-??? -???-???-???-???-???- 37w 2d 160 [...] support person(s), Immediate Larc, Movement Monitoring and Infant Feeding Yes ; Discussed Trial of Labor [...] General: cooperative, healthy appearing, comfortable and anxious HENAK Head: normal to inspection Nose: external nose [...] scheduled for 04/14 @ 12 with SM (7) Asthma: Status: Acute Comment: singular, ProAir stable controlled by PCP Orders: Orders POC Urinalysis 2 Dip (Clinic) Today Dr. Kate Small DO COVID 19, PCR [facility](RT COLLECT) Today Z34.90 - Encounter for supervision of normal , unspecified, unspecified trimester Dr. Sonya Benoit MD 04/13/22 1812 <Electronically signed by Kate Small DO> Date Kate Small DO 04/08/22 1032<Electronically signed by Sonya Benoit MD> Cosigner Signature: Date (if applicable) Sonya Benoit MD CC: Britta Acevedo DO Work Phone: Start: 04-01-2022 End: 04-01-2022 Car Greaser Office Visit Report Procedure Note: See Note; NOTES: [facility] [address] [place] [address] OFFICE VISIT Date of Service: 04/01/22 MR#: [id number] Acct: [id number] Name: PRISCILA RICHARDSON Rep #: [id number] : 1985 Provider: Dr. Sonya valentino MD Age/Sex: 36/F Location: [facility] Status: Signed Intake Vital Signs 10/29/21 15:52 04/01/22 15:51 04/01/22 15:52 Height 5 ft 5 in 5 ft 5 in 5 ft 5 in Weight: 160 lb BMI 26.6 BP 120/72 Intake Visit Reasons: 37WK OB Chief Complaint: est ob Boom Stick Man Required: No Is patient in pain?: No [...] at home: Yes additional social history: Trang- Trust Operations Assistant Patient Nilda Marley 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 Date Name GA/Weeks Outcome Route Bth Weight Infant Gen [facility] F[facility] 07/16/20 Meron 40 live - full term Female epidural [facility] Tiffany Delivery Date: 07/16/20 Last Updated by: [...] and meclazine ordered. will be going to [place] for vacation 01/26/22 -???-???-???-???-???-???-??? -???-???-???-???-???- 28w 0d [...] scheduled for 04/14 @ 12 with SM (7) Asthma: Status: Acute Comment: singular, ProAir stable controlled by PCP Orders: Orders POC Urinalysis 2 Dip (Clinic) Today 04/01/22 1612 <Electronically signed by Sonya Benoit MD> Date Sonya Benoit MD Cosign Signature: Date (if applicable) CC: Britta Acevedo DO Work Phone: Start: 03-29-2022 End: 03-29-2022 OB Limited With Biometrics Procedure Note: See Note; NOTES: [facility] Imaging Services [address] [place] [address] OB Limited With Biometrics MR#: [id number] Acct: [id number] Name: PRISCILA RICHARDSON Rep #: [id number] : 1985 F 36 From: Arvind Alvarado PCP: Dr. Britta Acevedo, DO Status: REG CLI Study: OB Limited With Biometrics Date of Exam: 03/29 Exam# [id number] Ordering Dr: Sonya Benoit STUDY: SECOND AND [...] measures 5.1 cm. The amniotic fluid index (ESE) is 11.1 cm. The placenta is fundal [...] weeks, 5 days. ALVAREZ by current US: 9.8.. Estimated weight: 3048 grams, +/- 457 grams, 55 %. Age by LMP: 36 weeks, 6 days. ALVAREZ by LMP: 9.7.. US/OB Limited With Biometrics IMPRESSION: There is a single live intrauterine with a heart rate of 144 bpm. age by current US: 36 weeks, 5 days. ALVAREZ by current US: 9.8.22. Estimated weight: 3048 grams, +/- 457 grams, 55 %. Electronically Signed: Arvind Prasad MD at 15:36 EDT Reading Location ID and State: [facility] / [place] , Service support , CC: Dr. Britta Acevedo DO; Dr. Sonya Benoit MD Road Cutter: Signed Britta Acevedo DO Work Phone: Start: 03-25-2022 End: 03-25-2022 Car Greaser Office Visit Report Procedure Note: See Note; NOTES: [facility] [address] [place] [address]. [address] [place] [address] OFFICE VISIT Date of Service: 03/25/22 MR#: [id number] Acct: [id number] Name: PRISCILA RICHARDSON Rep #: [id number] : 1985 Provider: Dr. Sonya valentino MD Age/Sex: 36/F Location: [facility] Status: Signed Intake Vital Signs 10/29/21 15:52 03/25/22 14:50 Height 5 ft 5 in 5 ft Intake Visit Reasons: 36WK OB Boom Stick Man Required: No Is patient in pain?: No [...] at home: Yes additional social history: Trang- Trust Operations Assistant Patient Munguiaalejandra Marley 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 Date Name GA/Weeks Outcome Route Bth Weight Gen Labor Lgth Anesthesia Del Locatn Provider FOB 07/16/20 Meron 40 live - full term Female epidural [facility] Tiffany Delivery Date: 07/16/20 Last Updated by: [...] and meclazine ordered. will be going to [place] 01/26/22 -???-???-???-???-???-???-??? -???-???-???-???-???- 28w 0d [...] POC Urinalysis 2 Dip (Clinic) Today 03/25/22 7389 <Electronically signed by Sonya Benoit MD> Date Sonya Benoit MD [facility] Signature: Date (if applicable) CC: Britta Acevedo DO Work Phone: Start: 03-09-2022 End: 03-12-2022 Car Greaser Office Visit Report Procedure Note: See Note; NOTES: [facility] [address] [place] [address] [address] [place] [address] OFFICE VISIT Date of Service: 03/09/22 MR#: [id number] Acct: [id number] Name: PRISCIAL RICHARDSON Rep #: [id number] : 1985 Provider: RASTA avendaño Age/Sex: 36/F Location: [facility] Status: Signed Intake Vital Signs 10/29/21 15:52 03/09/22 15:49 03/09/22 15:50 Height 5 ft 5 in 5 ft 5 in 5 ft Weight: 157 lb BMI 26.1 BP 112/60 Intake Visit Reasons: 34WK OB Chief Complaint: est ob Boom Stick Man Required: No Is patient in pain?: No [...] at home: Yes additional social history: Trang- Trust Operations Assistant Patient Nilda Marley Financial planning Pregancy History [...] and meclazine ordered. [place] be going to [place] vacation 01/26/22 -???-???-???-???-???-???-??? -???-???-???-???-???- 28w 0d [...] Negative 144 34 -???-???-???-???-???-???-??? -???-???-???-???-???- MH-No vB, RONALDO Moreno FM. Denies concerns. ACOG First Trimester First Trimester: [...] normal : Status: Acute Comment: PRR ALVAREZ 9/7/22 girl PC: Meron. Spouse:Trang (2) Rh negative [...] 1616<Electronically signed by Ana Cristina Roe NP PAYROLL AND BENEFITS MANAGER-C> Cosigner Signature: Date (if applicable) Ana Cristina Roe NP PAYROLL AND BENEFITS MANAGER-C CC: Britta Acevedo DO Work Phone: Start: 02-25-2022 End: 02-25-2022 Car Greaser Office Visit Report Procedure Note: See Note; NOTES: [facility] [address] [place] [address] OFFICE VISIT Date of Service: 02/25/22 MR#: [id number] Acct: [id number] Name: PRISCILA RICHARDSON Rep #: [id number] : 1985 Provider: Dr. Sonya valentino MD Age/Sex: 36/F Location: [facility] Status: Signed Intake Vital Signs 10/29/21 15:52 02/25/22 15:41 02/25/22 15:41 Height 5 ft 5 in 5 ft 5 ft Weight: 158 lb BMI 30.8 BP 124/62 H Intake Visit Reasons: 32WK OB Chief Complaint: est ob Boom Stick Man Required: No Is patient in pain?: No [...] Kidney disease Aunt Heart disease Social History (Reviewed 02/25/22 @ 15:41 by Julia Gomez Smoking Status: Never smoker alcohol intake: current details: pre- substance use type: does not use caffeine: Yes what type of physical activity do you participate in: walking frequency: 3-4 times per week seatbelt use: always do you feel safe at home: Yes additional social history: Trang- Trust Operations Assistant Patient Nilda Marley 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 Date Name GA/Weeks Outcome Route Bth Weight Infant Gen Labor Lgth Anesthesia Del Locatn Provider FOB 07/16/20 Meron 40 live - full term Female epidural [facility] Tiffany Delivery Date: 07/16/20 Last Updated by: [...] and meclazine ordered. [place] going [place] 01/26/22 -???-???-???-???-???-???-??? -???-???-???-???-???- 28w 0d [...] DO Work Phone: Start: 02-11-2022 End: 02-11-2022 Car Greaser Office Visit Report Procedure Note: See Note; NOTES: [facility] [address] [place] [address] OFFICE VISIT Date of Service: 02/11/22 MR#: [id number] Acct: [id number] Name: PRISCILA RICHARDSON Rep #: [id number] : 1985 Provider: Dr. Sonya valentino MD Age/Sex: 36/F Location: [facility] Status: Signed Intake Vital Signs 10/29/21 15:52 02/11/22 16:03 02/11/22 16:04 Height 5 ft 5 in 5 ft 5 ft Weight: 153 lb 6 oz BMI 29.9 BP 112/76 Intake Visit Reasons: 30WK OB Boom Stick Man Required: No Is patient in pain?: No [...] Female epidural [facility] Tiffany Delivery Date: 07/16/20 Last Updated by: aMriana English arrest of descent HPI 30WK OB [...] and meclazine ordered. will be going to [place] vacation 01/26/22 -???-???-???-???-???-???-??? -???-???-???-???-???- 28w 0d [...] POC Urinalysis 2 Dip (Clinic) Today 02/11/22 1635 <Electronically signed by Sonya Benoit MD> Date Sonya Benoit MD Cosign Signature: Date (if applicable) CC: Britta Acevedo DO Work Phone: Start: 01-26-2022 End: 03-20-2022 Car Greaser Office Visit Report Procedure Note: See Note; NOTES: [facility] [address] [place] [address]. [address] [place] [address] OFFICE VISIT Date of Service: 01/26/22 MR#: [id number] Acct: [id number] Name: DYLANPRISCILA MALAGON ALBERT Rep #: [id number] : 1985 Provider: Dr. Kate Steele DO Age/Sex: 36/F Location: [facility] Status: Signed Intake Vital Signs 10/01/21 15:22 01/26/22 15:28 Height 5 ft 5 in 5 ft Weight: 149 lb 8 oz BMI 29.2 BP 126/76 H Intake Visit Reasons: 27 WK OB/GLUCOSE Boom Stick Man Required: No Is patient in pain?: No [...] Female epidural [facility] Tiffany Delivery Date: 07/16/20 Last Updated by: [...] and meclazine ordered. will be going to [place] vacation 01/26/22 -???-???-???-???-???-???-??? -???-???-???-???-???- 28w 0d [...] Route Admin Location Lot Number Expiration Date [facility] Manufactu rer 1,500 unit IM left gluteus [id number] 04/09/23 9114-9033-08 [employer] Results POC Urinalysis 2 Dip (Clinic) Office Urine Glucose Negative Last Edit by Brittany Murphy on 01/26/22 15:41 Office Urine Protein Negative Last Edit by Brittany Murphy on 01/26/22 15:41 Immunizations Adacel(Tdap Adolesn/Adult)(PF) Performing Provider: Kate Small DO Administered by: Brittany Murphy on 01/26/22 15:49 Dose Route Admin Location Lot Number Expiration Date NDC Manufactu rer 0.5 mL IM Left Deltoid [id number] 09/03/23 37037-041-27 [employer] VIS Given Date VIS Provided VIS [...] Kate Small DO> Date [facility] Signature: Date (if applicable) CC: Britta Acevedo DO Work Phone: Start: 12-24-2021 End: 12-24-2021 Car Greaser Office Visit Report Procedure Note: See Note; NOTES: [facility] [address] [place] [address]. [address] [place] [address] OFFICE VISIT Date of Service: 12/24/21 MR#: [id number] Acct: [id number] Name: DYLANPRISCILA PRICE Rep #: [id number] : 1985 Provider: Dr. Kate Steele DO Age/Sex: 36/F Location: [facility] Status: Signed Intake Vital Signs 12/24/21 10:50 Height 5 ft Weight: 148 lb 2 oz BMI 28.9 BP 118/78 Intake Visit Reasons: 23 WK OB Boom Stick Man Required: No Is patient in pain?: No Allergies amoxicillin Adverse Reaction (Mild, Verified 12/24/21 10:51) Vomiting erythromycin base Adverse Reaction (Mild, Verified 12/24/21 10:51) Vomiting azithromycin Adverse Reaction (Verified 12/24/21 10:51) Vomiting Medications albuterol sulfate 90 mcg/actuation aerosol inhaler 1 puff INHALATION Q6H PRN 07/29/19 [History Confirmed 12/24/21] PNV 049-zrjkl-uhvex-3-fish oil 2 ea PO DAILY 07/15/20 [History [...] at home: Yes additional social history: Trang- Trust Operations Assistant Patient Munguia Donell 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 Date Name GA/Weeks Outcome Route Bth Weight Gen Labor Lgth Anesthesia Del Francescoatn Provider FOB 07/16/20 Meron 40 live - full term Female epidural [facility] Tiffany Delivery Date: 07/16/20 arrest of descent [...] and meclazine ordered. will be going to [place] for vacation ACOG First Trimester First Trimester: [...] DO Work Phone: Start: 11-26-2021 End: 11-26-2021 Car Greaser Office Visit Report Procedure Note: See Note; NOTES: [facility] [address] [place] [address] OFFICE VISIT Date of Service: 11/26/21 MR#: [id number] Acct: [id number] Name: PRISCILA RICHARDSON Rep #: [id number] : 1985 Provider: Dr. Sonya valentino MD Age/Sex: 36/F Location: [facility] Status: Signed Intake Vital Signs 11/26/21 16:04 Height 5 ft 5 in Weight: 143 lb 4 oz BMI 23.8 BP 114/70 Intake Visit Reasons: 19 WK OB Boom Stick Man Required: No Is patient in pain?: No Allergies amoxicillin Adverse Reaction (Mild, Verified 11/26/21 16:04) Vomiting erythromycin base Adverse Reaction (Mild, Verified 11/26/21 16:04) Vomiting azithromycin Adverse Reaction (Verified 11/26/21 16:04) Vomiting Medications albuterol sulfate 90 mcg/actuation aerosol inhaler 1 puff INHALATION Q6H PRN 07/29/19 [History Confirmed 11/26/21] PNV 839-emgob-fqgim-3-fish oil 2 ea PO DAILY 07/15/20 [History [...] at home: Yes additional social history: Trang- Trust Operations Assistant Patient Nilda Marley 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 Date Name GA/Weeks Outcome Route Bth Weight Infant Gen Labor Lgth Anesthesia Del Locatn Provider FOB 07/16/20 Meron 40 live - full term Female epidural [facility] Tiffany Delivery Date: 07/16/20 arrest of descent [...] Sonya Benoit MD> Date Sonya Benoit MD [facility] Signature: Date (if applicable) CC: Britta Acevedo DO Work Phone: Start: 10-29-2021 End: 10-29-2021 Car Greaser Office Visit Report Procedure Note: See Note; NOTES: [facility] [address] [place] [address]. [address] [place] [address] OFFICE VISIT Date of Service: 10/29/21 MR#: [id number] Acct: [id number] Name: PRISCILA RICHARDSON Rep #: [id number] : 1985 Provider: Dr. Kate Steele DO Age/Sex: 36/F Location: [facility] Status: Signed Intake Vital Signs 10/29/21 15:52 Height 5 ft 5 in Weight: 144 lb 6 oz BMI 24.0 BP 118/78 Intake Visit Reasons: 15 WK OB Boom Stick Man Required: No Is patient in pain?: No Allergies amoxicillin Adverse Reaction (Mild, Verified 10/29/21 15:53) Vomiting erythromycin base Adverse Reaction (Mild, Verified 10/29/21 15:53) Vomiting azithromycin Adverse Reaction (Verified 10/29/21 15:53) Vomiting Medications albuterol sulfate 90 mcg/actuation aerosol inhaler 1 puff INHALATION Q6H PRN 07/29/19 [History Confirmed 10/29/21] PNV 279-pyqdi-ohmtm-3-fish oil 2 ea PO DAILY 07/15/20 [History [...] at home: Yes additional social history: Trang- Trust Operations Assistant Patient Nilda Marley 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 Date Name GA/Weeks Outcome Route Bth Weight Gen Labor Lgth Anesthesia Del Locatn Provider FOB 07/16/20 Meron 40 live - full term Female epidural [facility] Tiffany Delivery Date: 07/16/20 arrest of descent [...] DO Work Phone: Start: 10-01-2021 End: 10-01-2021 Car Greaser Office Visit Report Procedure Note: See Note; NOTES: [facility] [address] [place] [address] OFFICE VISIT Date of Service: 10/01/21 MR#: [id number] Acct: [id number] Name: PRISCILA RICHARDSON Rep #: [id number] : 1985 Provider: Dr. Sonya valentino MD Age/Sex: 36/F Location: [facility] Status: Signed Intake Vital Signs 10/01/21 15:22 Height 5 ft 5 in Weight: 144 lb BMI 23.9 BP 114/80 Intake Visit Reasons: 11WK OB Chief Complaint: est ob Boom Stick Man Required: No Is patient in pain?: No Allergies amoxicillin Adverse Reaction (Mild, Verified 10/01/21 15:22) Vomiting erythromycin base Adverse Reaction (Mild, Verified 10/01/21 15:22) Vomiting azithromycin Adverse Reaction (Verified 10/01/21 15:22) Vomiting Medications albuterol sulfate 90 mcg/actuation aerosol inhaler 1 puff INHALATION Q6H PRN 07/29/19 [History Confirmed 10/01/21] PNV 093-mkbno-uxsqr-3-fish oil 2 ea PO DAILY 07/15/20 [History [...] at home: Yes additional social history: Trang- Trust Operations Assistant Patient Nilda Marley Financial planning Pregancy History [...] Female epidural [facility] Tiffany Delivery Date: 07/16/20 arrest of descent [...] DO Work Phone: Start: 09-16-2021 End: 09-16-2021 Car Greaser Office Visit Report Procedure Note: See Note; NOTES: [facility] [address] [place] [address] OFFICE VISIT Date of Service: 09/16/21 MR#: [id number] Acct: [id number] Name: PRISCILA RICHARDSON Rep #: [id number] : 1985 Provider: Dr. Sonya valentino MD Age/Sex: 36/F Location: [facility] Status: Signed Intake Vital Signs 09/16/21 11:12 09/16/21 11:20 Height 5 ft 5 in Weight: 139 lb BMI 23.1 BP 120/86 H Intake Visit Reasons: NOB LMP 07/14 Chief Complaint: NEW OB LMP 07/14 Boom Stick Man Required: No Is patient in pain?: No Allergies amoxicillin Adverse Reaction (Mild, Verified 09/09/21 15:34) Vomiting erythromycin base Adverse Reaction (Mild, Verified 09/09/21 15:34) Vomiting azithromycin Adverse Reaction (Verified 09/09/21 15:34) Vomiting Medications albuterol sulfate 90 mcg/actuation aerosol inhaler 1 puff INHALATION Q6H PRN 07/29/19 [History Confirmed 09/16/21] PNV 078-zhdvv-ppjyq-3-fish oil 2 ea PO DAILY 07/15/20 [History [...] at home: Yes additional social history: Trang- Trust Operations Assistant Patient Nilda Marley 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 Date Name GA/Weeks Outcome Route Bth Weight Gen Labor Lgth Anesthesia Del Locatn Provider FOB 07/16/20 Meron 40 live - full term Female epidural [facility] Tiffany Delivery Date: 07/16/20 arrest of descent [...] of Hepatitis: No, Recent travel outside of [place]: Yes (06/2021 [place] Valadez), Concern for hepatitis exposure: No and Varicella immune: Yes (chicken pox as child) Comments: covid vaccine complete Medical History Medical History: Positive: Heart disease (SVT not problematic), Pulmonary (e.g.,TB,Asthma) (inhaler prn), Seasonal allergies (prn med), Drug/latex allergies/reactions (as noted), 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 OG book offered to patient. Discussed routine and [...] w/Preg US Procedure Note: See Note; NOTES: [facility] Imaging Services [address] [place] [address] [place] [address] Transvaginal w/Preg US MR#: [id number] Acct: [id number] Name: PRISCILA RICHARDSON Rep #: [id number] : 1985 F 36 From: Shiraz ewing MD PCP: Dr. Britta Acevedo DO Status: REG CLI Study: Transvaginal w/Preg US Date of Exam: 09/10/21 Exam# [id number] Ordering Dr: Ana Cristina Roe NP PAYROLL AND BENEFITS MANAGER -C INDICATION: well being EXAMINATION: US OB [...] Escobar MD at 21:21 EST , CC: PAYROLL AND BENEFITS MANAGER-C Ana Cristina Roe; Dr. Britta Acevedo DO Road Cutter: Signed Britta Acevedo DO Work Phone: Start: 09-09-2021 End: 09-09-2021 Office Visit Report Procedure Note: See Note; NOTES: [place] [address] [place] [address] OFFICE VISIT Date of Service: 09/09/21 MR#: [id number] Acct: [id number] Patient: PRISCILA RICHARDSON Rep # : [id number] : 1985 Provider: RASTA avendaño Age/Sex: 36/F Location: [facility] Status: Signed Intake Vital Signs 09/09/21 15:33 Height 5 ft 5 in Weight: 140 lb BMI 23.3 Intake Visit Reasons: Rhogam Chief Complaint: est ob Boom Stick Man Required: No Is patient in pain?: No Allergies amoxicillin Adverse Reaction (Mild, Verified 09/09/21 15:34) Vomiting erythromycin base Adverse Reaction (Mild, Verified 09/09/21 15:34) Vomiting azithromycin Adverse Reaction (Verified 09/09/21 15:34) Vomiting Medications albuterol sulfate 90 mcg/actuation aerosol inhaler 1 puff INHALATION Q6H PRN 07/29/19 [History Confirmed 09/09/21] PNV 262-lstcj-pdlpg-3-fish oil 2 ea PO DAILY 07/15/20 [History Confirmed 09/09/21] Is last menstrual period known: Yes Post menopausal: No Patient : Yes Current gender identity: female Office Procedures Injections Procedure performed by: Mariana English Lot number: [id number] Stockroom Clerk: [place] date: 07/09/22 Dose of injection: 1500U Site [...] English on 09/09/21 15:50 Off Ur Spec [place] 1.005 Last Edit by Mariana English on [...] DO Work Phone: Start: 06-16-2021 End: 06-16-2021 Car Greaser Office Visit Report Procedure Note: See Note; NOTES: [facility] [address] [place] [address] OFFICE VISIT Date of Service: 06/16/21 MR#: [id number] Acct: [id number] Name: RICHARDSONPRISCILA MALAGON ALBERT Rep #: [id number] : 1985 Provider: RASTA avendaño Age/Sex: 36/F Location: [facility] Status: Signed Intake Vital Signs 06/16/21 09:36 [...] aerosol inhaler 1 puff INHALATION Q6H PRN 12/16/19 [History Confirmed 06/16/21] PNV 018-ulxha-naghr-3-fish oil 2 ea PO DAILY 07/15/20 [History Confirmed 06/16/21] Is last menstrual period known: Yes Last Menstral Period: 06/05/21 PFSH Surgical History Delivery by section History [...] 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 Details: PRISCILA RICHARDSON is a 36 year old who presents for IUD removal. Father passed from cancer last week, although receiving chemo was doing well and was actually in [place] when became ill, was able to get [...] 40 live - full term Female epidural [facility] Tiffany Delivery Date: 07/16/20 arrest of descent [...] Z30.432 Plan - Ana Cristina Roe NP, PAYROLL AND BENEFITS MANAGER-C: Continue PNV Condoms until ready to conceive Call with first positive test. RTO prn 06/16/21 0958 <Electronically signed by Ana Cristina Roe NP PAYROLL AND BENEFITS MANAGER-C> Date Ana Cristina Roe NP PAYROLL AND BENEFITS MANAGER-C Cosigner Signature: Date (if applicable) CC: Britta Acevedo DO Work Phone: Start: 10-14-2020 End: 10-14-2020 Car Greaser Office Visit Report Procedure Note: See Note; NOTES: [facility] [address] [place] [address] OFFICE VISIT Date of Service: 10/14/20 MR#: [id number] Acct: [id number] Name: PRISCILA RICHARDSON Rep #: [id number] : 1985 Provider: Dr. 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[employer] [facility] string check: Details: PRISCILA RICHARDSON is a [...] 40 live - full term Female epidural [facility] Tiffany Delivery Date: 07/16/20 arrest of descent Mariana English ROS Const Constitutional: Reports system reviewed and no [...] intertrigo B37.2 Plan - Ana Cristina Roe PAYROLL AND BENEFITS MANAGER, PAYROLL AND BENEFITS MANAGER-C IUD properly placed Rx clotrimazole RTO annual exam, prn Medications New: clotrimazole 1% 1 applic topical BID 2 weeks 30 grams 0RF Coding Level of Care Code Off vis,est,level 3 Diagnoses IUD check up Z30.431 Monilial intertrigo B37.2 10/14/20 8289 <Electronically signed by Aparna Allen MD> Date Aparna lAlen MD 10/14/20 1208<Electronically signed by Ana Cristina Roe NP PAYROLL AND BENEFITS MANAGER-C> Cosigner Signature: Date (if applicable) Ana Cristina Roe NP PAYROLL AND BENEFITS MANAGER-C CC: Britta Acevedo DO Work Phone: Start: 09-04-2020 End: 09-04-2020 Car Greaser Office Visit Report Procedure Note: See Note; NOTES: [facility] [address] [place] [address] [address] [place] [address] OFFICE VISIT Date of Service: 09/04/20 MR#: [id number] Acct: [id number] Name: DYLANPRISCILA DAVISKRISSY Rep #: [id number] : 1985 Provider: Dr. 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 Date Name GA/Weeks Outcome Route Bth Weight Infant [facility] 07/16/20 Meron 40 live - full term Female epidural [facility] Tiffany Delivery Date: 07/16/20 arrest of descent [...] Route Admin Location Lot Number Expiration Date [facility] Manufactu rer 1 insert intrauterine Assessment Plan 1. Encounter for IUD insertion Z30.430 Plan Successful Mirena IUD insertion Will see back in 6 weeks for string check Post-procedure precautions reviewed with patient Orders Orders: Mirena IUD Today Medications New: levonorgestrel 1 insert intrauterine ONCE 1 ea 0RF Coding Level of Care Code No Charge Diagnoses Encounter for IUD insertion Z30.430 Additional Codes IUD (88379) 09/04/20 1215 <Electronically signed by Aparna Allen MD> Date Aparna Oh Signature: Date (if applicable) CC: Britta Acevedo DO Work Phone: Start: 08-21-2020 End: 08-21-2020 Car Greaser Office Visit Report Procedure Note: See Note; NOTES: [facility] [address] [place] [address] [address] [place], [place] [address] OFFICE VISIT Date of Service: 08/21/20 MR#: [id number] Acct: [id number] Name: PRISCILA RICHARDSON Rep #: [id number] : 1985 Provider: Dr. Aparna eller MD Age/Sex: 35/F Location: [facility] Status: Signed Intake Vital Signs 08/21/20 Height 5 ft 5 in 08/21/20 Weight: 148 lb 2 oz 08/21/20 BP 128/86 H Intake Visit Reasons: 6WK PP / DECLINED iud. EARLY DUE KADEN TIME Boom Stick Man Required: No Is patient in pain?: No [...] History (Updated 08/21/20 @ 11:[address] 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 Date Name GA/Weeks Outcome Route Bth Weight Infant Gen Labor [facility] FOB 07/16/20 Meron 40 live - full term Female epidural [facility] Tiffany Delivery Date: 07/16/20 arrest of descent Mariana English Depression Screen PHQ-2/9 If score is 2 or greater, continue Source: Developed by Drs. Girma Hannah, Leticia Dueñas, Rohith Cross and colleagues, with an educational ute from [employer]. Scoring: Total Score Depression Severity Action 1-4 [...] swollen. Denies symptoms of anxiety and depression. Feeding: Breast Menses resumed: Yes [place] since delivery: No Emotional Support: Yes Last [...] body habitus Orientation: alert, awake, oriented x3 HENMT Head: [...] DO Work Phone: Start: 08-05-2020 End: 08-05-2020 Car Greaser Office Visit Report Procedure Note: See Note; NOTES: [facility] [address] [place] [address] OFFICE VISIT Date of Service: 08/05/20 MR#: [id number] Acct: [id number] Name: PRISCILA RICHARDSON Rep #: [id number] : 1985 Provider: Dr. 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 left groin pain: Details: PRISCILA RICHARDSON [...] Weight Infant Gen Labor Lgth Anesthesia Del [place] Provider FOB 07/16/20 Meron 40 live - full term Female epidural [facility] Tiffany Delivery Date: 07/16/20 arrest of descent AmadorMariana ROS Const Constitutional: Denies chills or fever(s) GI [...] 3 Diagnoses Left groin pain R10.32 08/05/20 1782 <Electronically signed by Aparna Allen MD> Date Aparna Oh Signature: Date (if applicable) CC: Britta Acevedo DO Work Phone: Start: 07-28-2020 End: 07-28-2020 Car Greaser Office Visit Report Procedure Note: See Note; NOTES: [facility] [address] [place], [place] [address]de[address]. [address] [place] [address] OFFICE VISIT Date of Service: 07/28/20 MR#: [id number] Acct: [id number] Name: PRISCILA RICHARDSON Rep #: [id number] : 1985 Provider: RASTA avendaño Age/Sex: 35/F Location: [facility] Status: Signed Intake Vital Signs 07/28/20 Weight: 144 lb 07/28/20 BP 118/74 Intake Visit Reasons: 2WK INCISION CHECK Boom Stick Man Required: No Accompanied by: self Is patient [...] @ 10:00 by Ana Cristina Roe NP, PAYROLL AND BENEFITS MANAGER-C) Smoking Status: Never smoker alcohol intake: current details: pre- substance use type: does not use caffeine: Yes what type of physical activity do you participate in: walking frequency: 3-4 times per week seatbelt use: always do you feel safe at home: Yes additional social history: Stephen Su 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 [facility] 2WK INCISION CHECK : Details: PRISCILA RICHARDSON [...] Weight Infant Gen Labor Lgth Anesthesia Del [facility] Provider FOB 07/16/20 Meron 40 live - full term Female epidural [facility] Tiffany Delivery Date: 07/16/20 arrest of descent [...] 07/28/20 1000 <Electronically signed by Ana Cristina Roe NP PAYROLL AND BENEFITS MANAGER-C> Date Ana Cristina Roe PAYROLL AND BENEFITS MANAGER PAYROLL AND BENEFITS MANAGER-C Cosigner Signature: Date (if applicable) CC: Britta Acevedo DO Work Phone: Start: 07-10-2020 End: 07-14-2020 OB Limited With Biometrics Comments: See Note; NOTES: [facility] Imaging Services [address] [place] [address] OB Limited With Biometrics MR#: [id number] Acct: [id number] Name: PRISCILA RICHARDSON Rep #: [id number] : 1985 F 35 From: Federica Wellington MD PCP: Dr. Britta Acevedo, Status: REG CLI Study: OB Limited With Biometrics Date of Exam: 07/10 Exam# [id number] Ordering Dr: Sonya Benoit STUDY: SECOND AND THIRD TRIMESTER OBSTETRICAL ULTRASOUND limited REASON FOR EXAM: Female, 35 years old GROWTH, AND ESE LMP: 10/05/2019 TECHNIQUE: Transabdominal real-time exam with [...] x 6.0 cm. The amniotic fluid index (ESE) is 11.5 cm. The placenta is anterior [...] Britta Acevedo DO; Dr. Sonya Benoit MD Road Cutter: Signed Britta Acevedo Start: 07-10-2020 End: 07-10-2020 Car Greaser Office Visit Report Comments: See Note; NOTES: [facility] [address] [place] [address]. [address] [place] [address] OFFICE VISIT Date of Service: 07/10/20 MR#: [id number] Acct: [id number] Name: PRISCILA RICHARDSON Rep #: [id number] : 1985 Provider: Dr. 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 ese 8 cm, consider repeat ESE next week ACOG First Trimester First Trimester: [...] Const General: cooperative, healthy appearing, comfortable, anxious HENAK Head: normal to inspection Nose: external nose [...] and PRN 5. Influenza vaccine administered Z23 [id number] 6. 35 weeks gestation of Z3A.35 electronic [...] CC: Britta Acevedo Start: 07-02-2020 End: 07-02-2020 Car Greaser Office Visit Report Comments: See Note; NOTES: [facility] [address] [place] [address]. [address] [place] [address] OFFICE VISIT Date of Service: 07/02/20 MR#: [id number] Acct: [id number] Name: PRISCILA RICHARDSON Rep #: [id number] : 1985 Provider: Dr. 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 Still struggling with N V:[facility]ch[facility] Rx. 02/10/20 -???-???-???-???-???-???-??? -???-???-???-???-???- 18w 2d 132 [...] at 4:30) 4. Influenza vaccine administered Z23 [id number] 5. Rh negative status during O26.899; Z67.91 [...] CC: Britta Acevedo Start: 06-26-2020 End: 06-26-2020 Car Greaser Office Visit Report Comments: See Note; NOTES: [facility] [address] [place] [address] OFFICE VISIT Date of Service: 06/26/20 MR#: [id number] Acct: [id number] Name: DYLANPRISCILA MALAGON VERONICATOOKRISSY Rep #: [id number] : 1985 Provider: Dr. 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 Z34. 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 anatomy reviewed. [...] B95.1 Exposure to COVID-19 virus Z20.828 06/26/20 1557 <Electronically signed by Sonya Benoit MD> Date Sonya Oh Signature: Date (if applicable) CC: Britta Acevedo Start: 06-17-2020 End: 06-17-2020 Car Greaser Office Visit Report Comments: See Note; NOTES: [facility] [address] [place] [address] OFFICE VISIT Date of Service: 06/17/20 MR#: [id number] Acct: [id number] Name: PRISCILA RICHARDSON Rep #: [id number] : 1985 Provider: Dr. 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 Influenza vaccine administered Z23 [id number] 6. 35 weeks gestation of Z3A.35 electronic [...] Sonya Benoit MD> Date Sonya Benoit MD [facility] Signature: Date (if applicable) CC: Britta Acevedo Start: 06-05-2020 End: 06-05-2020 Car Greaser Office Visit Report Comments: See Note; NOTES: [facility] [address] [place] [address]. [address] [place] [address] OFFICE VISIT Date of Service: 06/05/20 MR#: [id number] Acct: [id number] Name: PRISCILA RICHARDSON Rep #: [id number] : 1985 Provider: Dr. 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 Influenza vaccine administered Z23 [id number] 2. Rh negative status during O26.899; Z67.91 [...] CC: Britta Acevedo Start: 05-22-2020 End: 05-22-2020 Car Greaser Office Visit Report Comments: See Note; NOTES: [facility] [address] [place] [address] OFFICE VISIT Date of Service: 05/22/20 MR#: [id number] Acct: [id number] Name: PRISCILA RICHARDSON Rep #: [id number] : 1985 Provider: Dr. 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 Influenza vaccine administered Z23 [id number] Orders Orders: POC Urinalysis 2 Dip (Clinic) Today Coding Level of Care Code OB Routine Diagnoses Z34.90 Supervision of normal first Z34.00 Asthma J45.909 Rh negative status during O26.899; Z67.91 Influenza vaccine administered Z23 05/22/20 1528 <Electronically signed by Sonya Benoit MD> Date Sonya Benoit MD Cosigner Signature: Date (if applicable) CC: Britta Curtis Start: 05-06-2020 End: 05-06-2020 Car Greaser Office Visit Report Comments: See Note; NOTES: [facility] [address] [place] [address] OFFICE VISIT Date of Service: 05/06/20 MR#: [id number] Acct: [id number] Name: PRISCILA RICHARDSON Rep #: [id number] : 1985 Provider: Dr. 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
[2024-06-15 16:08] LABS: HPV APTIMA, High Risk Negative (Negative)
== END | disposition home or self-care (01) ==
LOC: LABSPEC 14:23
PROVIDERS: Referring Provider Obstetrics & Gynecology; Visit Provider Obstetrics & Gynecology
DX: Z12.4 Encounter for screening for malignant neoplasm of cervix (principal)
CPT/HCPCS: 87624; 88175; G0145

== ENCOUNTER → 2024-07-30 | Outpatient (CLI) | payer OTHER, SELFPAY ==
[2024-07-30 13:20] LABS: Cholesterol 174 mg/dL (200); Glucose 100 mg/dL (74-106); High Density Lipoprotein 69 mg/dL; Triglycerides 51 mg/dL; Very Low Density Lipoprotein 10 mg/dL (5-40)
== END | disposition home or self-care (01) ==
LOC: MFPLAB 09:21
PROVIDERS: PCP Family Medicine; Referring Provider Family Medicine; Visit Provider Family Medicine
DX: Z13.220 Encounter for screening for lipoid disorders (principal); Z13.1 Encounter for screening for diabetes mellitus
CPT/HCPCS: 36415; 80061; 82947

== ENCOUNTER → 2024-09-19 | Outpatient (CLI) | payer OTHER, SELFPAY ==
[2024-09-19 10:49] LABS: Absolute Lymphocyte Count 1.19 X10^3/uL (0.83-4.51); Absolute Neutrophil Count 6.4 X10^3/uL (2.0-7.7); Basophil# 0.03 X10^3/uL; Basophil% 0.4 % (0-1); Eosinophil# 0.04 X10^3/uL; Eosinophils% 0.5 % (0-5); Hematocrit 39.2 % (37-47); Hemoglobin 13.6 g/dL (12.0-15.0); Lymphocyte # 1.19 X10^3/ul (0.83-4.51); Lymphocyte % 14.9 % (19-41); Mean Corp Hgb Conc 34.7 g/dL (32-36); Mean Corpuscular Hgb 31.1 pg (27.0-32.0); Mean Corpuscular Volume 89.5 fL (81-99); Mean Platelet Vol. 11.2 fl (6.2-12.0); Monocyte# 0.32 X10^3/uL; NRBC Flagged by Analyzer 0 % (0-5); Neutrophil # 6.39 X10^3/uL (2.7-7.7); Neutrophil % 79.7 % (47-70); Platelet Count 228 K/mm3 (150-450); RBC Distribution Width CV 12.3 % (11.6-14.6); RBC Distribution Width SD 39.8 fl (35.1-43.9); Red Blood Count 4.38 M/mm3 (4.2-5.4)
[2024-09-19 21:58] LABS: HIV - WCH Non-Reactive (Nonreactive); Hepatitis B Surface Antigen Non-Reactive (Nonreactive); Hepatitis C Antibody Non-Reactive (Nonreactive); Rubella IgG Reactive (Nonreactive); Syphilis Antibodies Non-reactive
[2024-09-24 04:06] LABS: Chlamydia By Nucleic Acid AMP Negative (Negative); Gonococcus By Nucleic Acid AMP Negative (Negative)
== END | disposition home or self-care (01) ==
PROVIDERS: PCP Family Medicine; Referring Provider Advanced Practice Midwife; Visit Provider Advanced Practice Midwife
DX: O09.90 Supervision of high risk pregnancy, unspecified, unspecified trimester (principal); Z3A.00 Weeks of gestation of pregnancy not specified
CPT/HCPCS: 85025; 86703; 86762; 86780; 86803; 86850; 86900; 86901; 87086; 87088; 87340; 87491; 87591; 87624; 88175; G0145

== ENCOUNTER 2024-10-12 09:28 | Emergency (ER) | payer OTHER, SELFPAY ==
[2024-10-12 09:28] VITALS: BP 112/68; PULSE 93; RESP 14; TEMP 36.2; O2SAT 98; BMI 23.1
--- NOTE | 2024-10-12 10:19 | EDS_ITS ---
HPI HPI - Female History of Present Illness Chief Complaint: Vag Bld, Preg Narrative Narrative: Patient is a G3, P2 currently 12 weeks who presented to the emergency department chief complaint of vaginal spotting. According the patient last night she got up in the [place] to use the restroom wiped and noted a small amount of pink-tinged. States that when she used the restroom this morning this happened again. Patient states that she had a appointment at 8 weeks had a ultrasound with a confirmed intrauterine . She states that she did receive RhoGAM in the past and she called the on-call line they advised her to come here for RhoGAM today. Patient otherwise has no complaints. Patient denies any trauma or intercourse. [facility] Medical History Rh negative status during Acute sinusitis, unspecified SVT (supraventricular tachycardia) Home Medications ?Medication ?Instructions ?Recorded ?Last Taken ?Type Saccharomyces boulardii 250 mg 250 mg PO ONCE 06/07/24 Unknown History capsule (Daily Probiotic (S. boulardii)) multivitamin no.47-iron fum 27 1 cap PO DAILY 06/07/24 Unknown History mg-folate no.1 1 mg-dha 300 mg capsule (PNV-DHA) albuterol sulfate 90 mcg/actuation 1 puff inhalation O NCE 09/06/24 Unknown History aerosol inhaler buspirone 5 mg tablet 5 mg PO TID 09/06/24 Unknown History meclizine 12.5 mg tablet 12.5 mg PO TID PRN motion si ckness 09/09/24 Unknown Rx #90 tabs pyridoxine (vitamin B6) 200 mg 200 mg PO BID 09/19/24 Unknown History tablet cephalexin 500 mg capsule 500 mg PO Q12H 5 days #10 ca ps 10/12/24 Unknown Rx Allergy/AdvReac Type Severity Reaction Status Date / Time amoxicillin AdvReac Mild Vomiting Verified 10/12/24 09:29 erythromycin base AdvReac Mild Vomiting Verified 10/12/24 09:29 azithromycin AdvReac Vomiting Verified 10/12/24 09:29 Family History Father auto immune disorder psoriatic arthritis. Cancer multiple tumors with mets, no definitive primary. Possibly melanoma Heart disease AFIB Mother Diabetes Grandmother Kidney disease Aunt Heart disease Breast cancer, Onset Age: 70 Brother auto immune disorder Surgical History Delivery by section History of wisdom tooth extraction, class II edentulism Social History adopted: No household members: spouse and children number of children: 2 current occupational status: employed current occupation: [employer] current occupational exposures/hazards: No pets and animals: Yes pets and animals: dog(s) history of recent travel: No sexually active: Yes Smoking Status: Never smoker alcohol intake: current details: Not while substance use type: does not use well-balanced diet: daily or most days caffeine: Yes Type: coffee eating out: rarely or never during the past year weight has: remained stable what type of physical activity do you participate in: walking frequency: 5-6 times per week duration: 45-60 minutes/day tish/buddhism: Judaism seatbelt use: always do you feel safe at home: Yes additional social history: : [employer]ian- [employer] [facility] ROS Narrative Constitutional: Denies fevers, chills, headaches, lightness, Abdomen: Denies abdominal pain nausea vomit diarrhea : Complains of vaginal spotting as noted above denies painful urination, increased frequency of urinating Neurological: Denies numbness, weakness, tingling Musculoskeletal: Denies back pain Skin: Denies rashes or lesions EXAM Physical Exam Narrative Exam Narrative: General: Patient lying in bed rest comfortably did not appear to be acute distress Head: Atraumatic, normocephalic Eyes: PERRL bilaterally, EOMI bilateral, no conjunctival injection noted Neck: Soft, supple, trach Cardiovascular: Regular in rhythm Respiratory: Clear to auscultation bilaterally Abdomen: Soft, nondistended, tenderness palpation Skin: Warm, dry, tact no rashes or lesions noted Const Vital Signs: 10/12/24 09:28 10/12/24 11:28 Temperature 97.1 F L Temperature Source Temporal Pulse Rate 93 76 Respiratory Rate 14 18 Blood Pressure 112/68 123/87 H Blood Pressure Mean 82 99 Pulse Ox 98 Oxygen Delivery Method Room Air MDM MDM MDM Narrative Medical decision making narrative: Patient is a 39-year-old female who presented to the emerged part with chief complaint of vaginal bleeding at 12 weeks needing RhoGAM. Patient will have a UA obtained. On the differential diagnose includes Melamin to vaginal spotting, UTI, threatened miscarriage. Once again patient already had a confirmed intrauterine at the office at 8 weeks we will not obtain ultrasound here today. I spoke with on-call land management supervisor Dimitry who is recommending giving the patient RhoGAM obtain heart tones and if everything is normal can follow-up with them in outpatient setting. Patient's urinalysis was significant for 500 leukocyte esterase with 5-10 white cells and 2+ bacteria she was given a gram Rocephin here in the emergency department and she will be placed on Keflex this was sent for culture. Patient's heart tones was noted be between 116 and 120. Patient was given RhoGAM here in the emergency department. Patient was advised to take antibiotics as prescribed and follow-up with her CARBON COATING MACHINE OPERATOR outpatient setting. She was advised to return with worsening symptoms or concerns. She is agreeable this plan as well as significant other bedside all question concerns answered she was discharged home in stable condition. Lab Data Labs: Laboratory Results - last 24 hr 10/12/24 10/12/24 11:15 11:42 Urine Color Yellow Urine Clarity Sl. Cloudy Urine pH 6.0 Ur Specific [place] 1.015 Urine Protein Negative Urine Glucose (UA) Normal Urine Ketones Negative Urine Occult Blood 250 H Urine Nitrite Negative Urine Bilirubin Negative Urine Urobilinogen Normal Ur Leukocyte Esterase 500 H Urine RBC 5-10 SEEN Urine WBC 5-10 SEEN Ur Squamous Epith Cells 0-5 SEEN Urine Bacteria 2+ Urine Mucus 0 SEEN Blood Type AB NEGATIVE Discharge Plan Triage Chief Complaint: Vag Bld, Preg ED Provider: Clem Michael Dx/Rx/DC Orders Clinical Impression: Urinary tract infection, Rh negative status during , , Spotting Prescriptions: New cephalexin 500 mg capsule 500 mg PO Q12H 5 Days Qty: 10 0RF No Action PNV-DHA 27 mg iron-1 mg -300 mg capsule 1 cap PO DAILY Saccharomyces boulardii [Daily Probiotic (S. boulardii)] 250 mg capsule 250 mg PO ONCE pyridoxine (vitamin B6) 200 mg tablet 200 mg PO BID buspirone 5 mg tablet 5 mg PO TID albuterol sulfate 90 mcg/actuation HFA aerosol inhaler 1 puff inhalation ONCE meclizine 12.5 mg tablet 12.5 mg PO TID PRN (Reason: motion sickness) Qty: 90 4RF Primary Care Provider: Marquis Salamanca Referrals: Marquis Salamanca MD [Primary Care Provider] - Activity Restrictions/Additional Instructions: Follow-up on the urine culture with your CARBON COATING MACHINE OPERATOR or your primary care physician to ensure that you are on the appropriate antibiotic. Follow-up with your CARBON COATING MACHINE OPERATOR in the outpatient setting. Return with worsening symptoms or concerns. You were given RhoGAM today. Print Language: Kazakh Disposition Disposition: Home, Self Care
[2024-10-12 11:28] VITALS: BP 123/87; PULSE 76; RESP 18
[2024-10-12 11:50] LABS: Mucous, Urine 0 SEEN /hpf (<or=2+)
[2024-10-12 11:53] LABS: Color, Urine Yellow (Yellow); Glucose, Dipstick Normal (Normal); Ketone-Dipstick Negative (Negative); Leukocyte Esterase-Dipstick 500 /ul (Negative); Nitrite-Dipstick Negative (Negative); Occult Blood-Urine 250 /ul (Negative); Protein-Dipstick Negative (Negative); Specific Gravity, Urine 1.015 (1.002-1.030); Urine Bilirubin Dipstick Negative (Negative); Urine Clarity Sl. Cloudy (Clear); Urine Urobilinogen Normal (Normal)
[2024-10-12 11:58] LABS: Bacteria 2+ /hpf (None Seen); Red Blood Cells-Urine 5-10 SEEN /hpf (0-5); Squamous Epithelial Cells - UA 0-5 SEEN /hpf (5-10); White Blood Cells 5-10 SEEN /hpf (0-5)
[2024-10-12] MEDS: Rho(D) Immune Globulin 300 MCG (1500 Unit) Syringe IV (12:25)
[2024-10-12] MEDS: Ceftriaxone 1 GM/50 ML BAG IV (12:47)
[2024-10-12 13:00] VITALS: BP 124/76; PULSE 81; RESP 16; O2SAT 98
== END 2024-10-12 13:33 | disposition home or self-care (01) ==
PROVIDERS: Emergency Provider Emergency Medicine; PCP Family Medicine; Visit Provider Emergency Medicine
DX: O23.41 Unspecified infection of urinary tract in pregnancy, first trimester (principal); O36.0910 Maternal care for other rhesus isoimmunization, first trimester, not applicable or unspecified; O09.521 Supervision of elderly multigravida, first trimester; O26.851 Spotting complicating pregnancy, first trimester; Z3A.12 12 weeks gestation of pregnancy
CPT/HCPCS: 96365; 81001; 86900; 86901; 87077; 87086; 87088; 90384; 99282; A4216; J2790; J2791

== ENCOUNTER → 2025-02-05 | Outpatient (CLI) | payer OTHER, SELFPAY ==
[2025-02-05 16:53] LABS: Absolute Lymphocyte Count 1.52 X10^3/uL (0.83-4.51); Absolute Neutrophil Count 9.7 X10^3/uL (2.0-7.7); Basophil# 0.04 X10^3/uL; Basophil% 0.3 % (0-1); Eosinophils% 0.8 % (0-5); Hematocrit 38.1 % (37-47); Hemoglobin 12.8 g/dL (12.0-15.0); Lymphocyte # 1.52 X10^3/ul (0.83-4.51); Lymphocyte % 12.4 % (19-41); Mean Corp Hgb Conc 33.6 g/dL (32-36); Mean Corpuscular Hgb 31.1 pg (27.0-32.0); Mean Corpuscular Volume 92.7 fL (81-99); Mean Platelet Vol. 11.6 fl (6.2-12.0); Monocyte# 0.74 X10^3/uL; NRBC Flagged by Analyzer 0 % (0-5); Neutrophil # 9.73 X10^3/uL (2.7-7.7); Neutrophil % 79.3 % (47-70); Platelet Count 191 K/mm3 (150-450); RBC Distribution Width CV 13.3 % (11.6-14.6); RBC Distribution Width SD 44.2 fl (35.1-43.9); Red Blood Count 4.11 M/mm3 (4.2-5.4); White Blood Count 12.3 K/mm3 (4.4-11.0)
[2025-02-05 18:09] LABS: Glucose Challenge Gest 1H 50g 95 mg/dL (70-140); HIV Nonreactive (Nonreactive); Syphilis Antibodies Nonreactive (Nonreactive)
== END | disposition home or self-care (01) ==
LOC: BWCLAB 13:01
PROVIDERS: Obstetrics & Gynecology; PCP Family Medicine; Visit Provider Obstetrics & Gynecology
DX: O09.90 Supervision of high risk pregnancy, unspecified, unspecified trimester (principal); Z13.1 Encounter for screening for diabetes mellitus; O26.899 Other specified pregnancy related conditions, unspecified trimester; Z67.91 Unspecified blood type, Rh negative; Z3A.00 Weeks of gestation of pregnancy not specified
CPT/HCPCS: 36415; 82950; 85025; 86703; 86780; 86850; 86900; 86901

== ENCOUNTER → 2025-02-12 | Outpatient (CLI) | payer OTHER, SELFPAY ==
[2025-02-12 12:22] LABS: AST(SGOT) 19 U/L (<=31); Alanine Aminotransfer ALT/SGPT 13 U/L (<=34); Albumin, Serum 3.6 g/dL (3.5-5.0); Alkaline Phosphatase 113 U/L (35-104); Anion Gap 12 (5-15); BUN 9 mg/dL (4-19); BUN/Creat Ratio 12.7 RATIO (10-20); Calcium,Total 8.7 mg/dL (7.6-11.0); Carbon Dioxide 22.1 mmol/L (21.0-32.0); Chloride 103 mmol/L (98-108); Globulin 2.6 g/dL (2.2-4.2); Glucose 80 mg/dL (70-99); Potassium 3.6 mmol/L (3.3-5.1)
== END | disposition home or self-care (01) ==
LOC: MTLAB 08:06
PROVIDERS: PCP Family Medicine; Referring Provider Family Medicine; Visit Provider Family Medicine
DX: R42 Dizziness and giddiness (principal)
CPT/HCPCS: 36415; 80053

== ENCOUNTER → 2025-04-04 | Outpatient (CLI) | payer OTHER, SELFPAY | END | disposition home or self-care (01) | LOC: LABSPEC 10:38 | PROVIDERS: PCP Family Medicine; Referring Provider Obstetrics & Gynecology; Visit Provider Obstetrics & Gynecology | DX: O09.93 Supervision of high risk pregnancy, unspecified, third trimester (principal); Z3A.00 Weeks of gestation of pregnancy not specified | CPT/HCPCS: 87077; 87081; 87186 ==

== ENCOUNTER 2025-04-22 05:25 | Inpatient (IN) | payer OTHER, SELFPAY ==
[2025-04-22] VITALS (21 sets, daily range): BP systolic 109–135; BP diastolic 60–86; PULSE 64–119; RESP 16–20; TEMP 35.9–36.8; O2SAT 95–100; BMI 28.5
--- OUTSIDE RECORDS SUMMARY | 2025-04-22 05:26 | XMS RPT_ITS | CCD ---
Author Organization [facility] Care Team Providers Care Brazing Machine Operator Automatic Name Role Phone Sonya Benoit MD Unavailable [phone] Britta Acevedo Unavailable Brenda Bradley Unavailable Louisa Foreman Unavailable Unavailable Kate Fischer Unavailable Unavailable Maximino Adames Unavailable Unavailable Unavailable Unavailable Dr. Britta Acevedo Primary Care Provider [phone] Jyothi ADMINISTRATIVE OFFICE SPECIALIST, RASTA De La Paz Attending Provider [phone] Dr. Britta Acevedo Referring Provider [phone] Dr. Sonya Benoit Attending Provider [phone] Dr. Kate Small Attending Provider [phone] Dr. Britta Acevedo Primary Care Provider [phone] Dr. Britta Acevedo Referring Provider [phone] Dr. Sonya Benoit Attending Provider [phone] Dr. Britta Acevedo Primary Care Provider [phone] Dr. Britta Acevedo Referring Provider Dr. Sonya Benoit Attending Provider [phone] Dr. Britta cAevedo Primary Care Provider [phone] Dr. Britta Acevedo Referring Provider Dr. Kate Small Attending Provider [phone] Dr. Sonya Benoit Attending Provider [phone] Jyothi ADMINISTRATIVE OFFICE SPECIALIST, ADMINISTRATIVE OFFICE SPECIALIST-C Ana Cristina Attending Provider [phone] Dr. Sonya Benoit Admit Provider [phone] Dr. Sonya Benoit Other Provider Dr. Britta Acevedo Primary Care Provider [phone] Dr. Britta Acevedo Referring Provider Dr. Kate Small Attending Provider [phone] Britta Acevedo DO Unavailable Fast DO, Brenda A Unavailable Slarb POWDER BLENDER AND POURER, Lousia Unavailable Unavailable Kate Fischer Unavailable Unavailable Maximino Adames Unavailable Unavailable Unavailable Unavailable Dr. Britta Acevedo Primary Care Provider [phone] Dr. Britta Acevedo Referring Provider Dr. Kate Small Attending Provider [phone] Dr. Britta Acevedo Primary Care Provider [phone] Dr. Britta Acevedo Referring Provider JATIN Nunez Attending Provider Dr. Sonya Benoit Attending Provider [phone] DO Alisia Foster Primary Care Provider [phone] DO Alisia Foster Referring Provider YANELI JOEL Attending Unavailable SILVIA, CHALON J Primary Care Unavailable MAXIMINO MIJARES Referring Unavailable Silvia, Chalon Primary Care Unavailable Kate Small Attending Unavailabl e Silvia, Chalon Primary Care Unavailable Kate Larson Attending Unavailable Silvia, Chalon Primary Care Unavailable Sonya Benoit Attending Unavailable Silvia, Chalon Referring Unavailable Silvia, Chalroselyn Attending Unavailable Silvia, Chalon Referring Unavailable Silvia, Chalon Primary Care Unavailable Silvia, Chalon Primary Care Unavailable Silvia, Chalon Referring Unavailable Sonya Benoit Attending Unavailable Silvia, Chalon Primary Care Unavailable Silvia, Chalon Referring Unavailable Marcanthony, Sonya Attending Unavailable Marcanthony, Sonya Admitting Unavailable Marcanthony, Sonya Referring Unavailable Marcanthony, Sonya Attending Unavailable Silvia, Chalon Primary Care Unavailable Marcanthony, Sonya Referring Unavailable Marcanthony, Sonya Attending Unavailable Helen Ha Attending Unavailable Silvia, Chalon Primary Care Unavailable Jyothi ADMINISTRATIVE OFFICE SPECIALIST, Ana Cristina Attending Unavailable Silvia, Chalon Referring Unavailable Marcanthony, Sonya Attending Unavailable Silvia, Chalon Primary Care Unavailable Silvia, Chalon Primary Care Unavailable SkruckKate Attending Unavailable Silvia, Chalon Referring Unavailable Silvia, Chalon Primary Care Unavailable Marcanthony, Sonya Attending Unavailable Silvia, Chalon Referring Unavailable Silvia, Chalon Primary Care Unavailable Marcanthony, Sonya Attending Unavailable Silvia, Chalon Referring Unavailable Silvia, Chalon Primary Care Unavailable Maximino Mijares Attending Unavailable Silvia, Chalon Primary Care Unavailable SkruckKate Attending Unavailable Silvia, Chalon Referring Unavailable Marcanthony, Sonya Attending Unavailable Silvia, Chalon Primary Care Unavailable Silvia, Chalon Referring Unavailable Silvia, Chalon Primary Care Unavailable Jyothi ADMINISTRATIVE OFFICE SPECIALIST, Ana Cristina Attending Unavailable Jyothi ADMINISTRATIVE OFFICE SPECIALIST, Ana Cristina Attending Unavailable KristinAlisia yung Referring Unavailable Marcanthony, Sonya Attending Unavailable Silvia, Chalon Referring Unavailable Marcanthony, Sonya Attending Unavailable Silvia, Chalon Primary Care Unavailable Silvia, Chalon Primary Care Unavailable Maximino Mijares Attending Unavailable Maximino Mijares Referring Unavailable Silvia, Chalon Referring Unavailable Silvia, Chalon Primary Care Unavailable Marcanthony, Sonya Attending Unavailable Clem Michael Attending Unavailable Silvia, Chalon Primary Care Unavailable Silvia, Chalon Referring Unavailable Silvia, Chalon Primary Care Unavailable Marcanthony, Sonya Attending Unavailable Silvia, Chalon Referring Unavailable Silvia, Chalon Primary Care Unavailable Maximino Mijares Attending Unavailable Silvia, Chalon Primary Care Unavailable Kate Larson Attending Unavailable Marcanthony, Sonya Referring Unavailable Silvia, Chalon Primary Care Unavailable Marcanthony, Sonya Attending Unavailable Silvia, Chalon Referring Unavailable Silvia, Chalon Attending Unavailable Silvia, Chalon Primary Care Unavailable Allergies Allergy Classification Reported Allergen(s) Allergy Type Date of Onset Reaction(s) Facility (19 sources) amoxicillin; Translations: [Amoxil *PENICILLINS*] Drug Allergy 7 Nausea, Vomiting [facility] Comment on above: Nausea & diarrhea (16 sources) erythromycin Drug Allergy 7 Nausea, [place] [facility] (11 sources) Azithromycin Drug Allergy 2 Vomiting [facility] (1 source) Amoxicillin Drug Allergy 5 [facility] Repository (1 source) Azithromycin Drug Allergy 5 [facility] Repository (1 source) Erythromycin Drug Allergy 5 [facility] Repository Medications Current Medications Medication Drug Class(es) Dates Sig (Normalized) Sig (Original) [id number] 200 actuat albuterol 0.09 mg/actuat metered dose inhaler (16 sources) beta2-Adrenergic Agonist Start: 07-29-2019 take 1 puff(s) by inhalation every six hours Albuterol Sulfate (Proair Hfa) 90 mcg/actuation HFA aerosol inhaler Active 1 PUFF INHALATION EVERY 6 HOURS July 29, 2019 1:00am Start: 08-12-2015 End: 12-13-2016 ProAir HFA 108 [...] 08-Sep-2008 Carlie Alfredo End : 24-Sep-2008 Inactive 60 actuat budesonide 0.09 mg/actuat dry powder inhaler (4 sources) Corticosteroid Start: 12-24-2021 Budesonide Act jose 1 INH INHALATION TWICE A DAY December 24, 2021 12:00am Pnv 902-Wedng-Bxvqt-3-Fish Oil (11 sources) Start: 07-15-2020 Pnv 310-Eetlj-Ddawk-3-Fish Oil Active 2 EACH PO DAILY July 15, 2020 10:31am Start: 07-15-2020 End: 05-29-2023 Pnv 893-Qwvlr-Wjbuv-3-Fish O il Discontinued 2 EACH PO DAILY July 15, 2020 1:00am May 29, 2023 2:55pm Start: 07-15-2020 End: 05-29-2023 Pnv 029-Dxtul-Xqcrg-3-Fish O il Discontinued 2 EACH PO DAILY July 15, 2020 12:00am May 29, 2023 1:55pm Start: 07-15-2020 Pnv 103-Folic- Zpogx-6-Ueep Oil Active 2 EACH PO DAILY July 15, 2020 1:00am Completed/Discontinued Medications Medication Drug Class(es) Dates Sig (Normalized) Sig (Original) acetaminophen 325 mg oral capsule (11 sources) Start: 07-28-2020 End: 08-21-2020 take 1 capsule by mouth once Acetaminophen (Tylenol) 325 mg capsule Discontinued 325 MG PO ONCE July 28, 2020 1:00am August 21, 2020 11:01am acetaminophen 325 mg / oxyCODONE hydrochloride 5 mg oral tablet (6 sources) Opioid Agonist Start: 04-14-2022 End: 04-26-2022 take 1 tablet by mouth every six hours Oxycodone-Acetamin ophen (Percocet) 5-325 mg tablet Discontinued 1 TABLET PO EVERY 6 HOURS 02 03April 14, 2022 April 26, 2022 3:01pm ALBUTEROL SULFATE HFA, 108 (90 Base)MCG/ACT (Inhalation [...] Quantity: 60 {Tablet} Refills: 0 Ordered: 18-Feb-2011 Maximino Kim RN Start : 30-Jun-2010 End : 18-Feb-2011 Inactive amoxicillin 875 mg oral tablet (3 sources) Penicillin-class Antibacterial Start: 09-03-2010 End: 02-18-2011 take 1 tablet by mouth twice daily AMOXICILLIN, 875MG (Oral Tablet) 1 Tablet bid for 0 days Quantity: 20 {Tablet} Refills: 0 Ordered: 18-Feb-2011 Maximino iKm RN Start : 03-Sep-2010 End : 18-Feb-2011 Inactive amoxicillin 500 mg / clavulanate 125 mg oral tablet (6 sources) Penicillin-class Antibacterial Start: 08-23-2022 End: 12-05-2022 take 1 tablet by mouth twice daily Amoxicillin-Pot Clavulanate (Augmentin) 500-125 mg tablet Discontinued 1 TABLET PO TWICE A DAY August 23, 2022 1:00am December 05, 2022 6:26am Start: 08-11-2022 End: 08-21-2022 take 1 tablet by mouth every twelve hours Amoxicillin-Pot Clavulanate Discontinued 1 TABLET PO Q12H 02 06August 11, 2022 1:00am August 21, 2022 1:04am atenolol 25 mg oral tablet (3 sources) [...] Quantity: 1 {Package} Refills: 0 Ordered: 02-Apr-2014 YusefbaironChantal spicer CMA Start : 21-Mar-2014 End : 02-Apr-2014 [...] Start: 06-30-2017 BIOTIN 1000 MCG TABS BIOTIN [id number] Sonya Benoit MD End: 08-12-2015 take 1 capsule by mouth once daily BIOTIN, 10MG (PO Cap) 1 cap qd for 0 days Refills: 0 Ordered: 12-Aug-2015 Louisa Foreman LPN End : 12-Aug-2015 Discontinued Comments: This order discontinued per [facility]. Comment on above: This order discontin ued per [facility]. cefdinir 300 mg oral capsule (3 sources) Cephalosporin Antibacterial Start: 3 End: 3 take 300 mg by mouth twice daily Cefdinir Discontinued 300 MG PO TWICE A DAY December 05, 2022 12:00am May 29, 2023 2:55pm cephalexin 500 mg oral capsule (6 sources) Cephalosporin Antibacterial Start: 3 End: 3 take 500 mg by mouth every twelve hours Cephalexin Discontinued 500 MG PO Q12H 20 August 23, 2022 1:00am September 02, 2022 1:04am Start: 02-18-2011 End: 07-15-2011 take 1 capsule by mouth three times daily at mealtime KEFLEX, 500MG (Oral Capsule) 1 Capsule tid with food for 0 days Quantity: 30 {Capsule} Refills: 0 Ordered: 15-Jul-2011 Start : 18-Feb-2011 End : 15-Jul-2011 Inactive ciprofloxacin 500 mg oral tablet (3 sources) Quinolone Antimicrobial Start: 02-20-2023 End: 05-29-2023 take 500 mg by mouth twice daily Ciprofloxacin Hcl Discontinued 500 MG PO TWICE A DAY February 20, 2023 12:00am May 29, 2023 2:55pm clarithromycin 500 mg oral tablet (12 sources) Macrolide Antimicrobial Start: 06-16-2014 End: 06-26-2014 take 2 tablets by mouth once daily [...] 17-Jun-2008 End : 24-Sep-2008 Inactive clotrimazole 10 mg/ml topical cream (14 sources) Azole Antifungal Start: 10-14-2020 End: 10-28-2020 Clotrimazole Discontinued 1 APPLIC TOPICAL TWICE A DAY October 14, 2020 1:00am October 28, 2020 12:03am Start: 08-12-2015 End: 08-22-2015 CLOTRIMAZOLE, 10MG (Mouth/Th roat Teri) 1 (one) Teri 5x daily for 10 days Quantity: 50 {Teri} Refills: 0 Ordered: 12-Aug-2015 Alivia Salinas Start : 12-Aug-2015 End : 22-Aug-2015 Inactive diphenhydrAMINE hydrochloride 50 mg oral capsule (6 sources) Histamine-1 Receptor Antagonist Start: 04-14-2022 End: 04-26-2022 Diphenhydramine Hcl (Unisom Sleepgels) 50 mg Capsule Discontinued 50 MG PO NEEDED April 14, 2022 12:00am April 26, 2022 3:02pm docusate sodium 100 mg oral capsule (20 sources) Start: 01-26-2022 End: 05-26-2022 take 1 capsule by mouth once daily Docusate Sodium (Colace) 100 mg capsule Discontinued 100 MG PO DAILY January 26, 2022 12:00am May 26, 2022 1:54pm Start: 07-15-2020 End: 08-21-2020 take 200 mg by mouth once daily Docusate Sodium Discontinued 200 MG PO DAILY July 15, 2020 1:00am August 21, 2020 11:01am CECILIO 28, 3-0.03MG (Oral Tablet) (3 sources) Progestin, Estrogen End: 05-22-2013 take 1 tablet by mouth once daily CECILIO 28, 3-0.03MG (Oral Tablet) 1 tab qd for 0 days Refills: 0 Ordered: 22-May-2013 Chantal Go CMA End : 22-May-2013 Inactive esomeprazole 40 mg delayed release oral capsule (3 sources) Proton Pump Inhibitor Start: 07-15-2011 End: 10-24-2011 take 1 capsule by mouth once daily as needed NEXIUM, 40MG (Oral Capsule Delayed Release) 1 (one) Capsule DR qd, prn for 0 days Quantity: 30 {Capsule_DR} Refills: 3 Ordered: 24-Oct-2011 Start : 15-Jul-2011 End : 24-Oct-2011 Inactive 21 day ethinyl estradiol 0.331517 mg/hr / etonogestrel 0.005 mg/hr vaginal system (11 sources) Progestin, Estrogen Start: 05-29-2018 End: 07-29-2019 Etonogestrel-Ethi nyl Estradiol (Nuvaring) 0.12-0.015 mg/24 hr ring Discontinued 1 VAG RING VAGINAL every 4 weeks May 29, 2018 12:00am July 29, 2019 10:50am leave in place for 3 weeks of a 4-week cycle famotidine 20 mg oral tablet (16 sources) Histamine-2 Receptor Antagonist Start: 12-24-2021 End: 04-26-2022 take 1 tablet by mouth twice daily Famotidine (Pepcid) 20 mg tablet Discontinued 20 MG PO TWICE A DAY April 14, 2022 10:28am April 26, 2022 3:02pm ferrous sulfate 325 mg oral tablet (11 sources) Start: 07-15-2020 End: 08-21-2020 Ferrous Sulfate Discontinued 325 MG PO July 15, 2020 1:00am August 21, 2020 11:01am 12 hr fexofenadine hydrochloride 60 mg / pseudoephedrine hydrochloride 120 mg extended release oral tablet (3 sources) alpha-Adrenergi c Agonist, Histamine-1 Receptor Antagonist Start: 08-10-2010 End: 02-18-2011 take 60-120 mg by mouth twice daily as needed LUIS MIGUEL-D 12 HOUR, 60-120MG (Oral Tablet Extended Release 12 Hour) 1 (one) Tablet ER 12HR bid prn for 0 days Refills: 0 Ordered: 18-Feb-2011 Maximino Kim RN Start : 10-Aug-2010 End : 18-Feb-2011 Inactive Fluad Quad [id number](65yr up)(PF) 60 mcg (15 mcg x 4)/0.5mL IM syringe (flu vac (1 source) Start: 06-16-2021 End: 06-16-2021 inject 1 mL by intramuscular injection once Fluad Quad (65yr up)(PF) 60 mcg (15 mcg x 4)/0.5mL IM syringe (flu vac Discontinued 0.5 ML IM ONCE 0.5 June 16, 2021 9:31am June 16, 2021 9:59am fluconazole 150 mg oral tablet (20 sources) Azole Antifungal Start: 08-23-2022 End: 12-05-2022 Fluconazole (Diflucan) 150 mg tablet Discontinued 150 MG PO Every 3 Days August 23, 2022 1:00am December 05, 2022 6:26am december repeat second dose 72 hrs after first dose if symptoms persist Start: 04-21-2022 End: 04-26-2022 Fluconazole Discontinued 150 MG PO .COMPLEX 2 April 21, 2022 12:00am April 26, 2022 2:57pm 150 mg PO take one po now and repeat in 3 days Start: 12-24-2021 End: 12-26-2021 Fluconazole (Diflucan) 150 m g tablet Discontinued 150 MG PO DAILY 2 December 24, 2021 12:00am December 26, 2021 12:05am take 72 hours apart Start: 09-21-2020 End: 10-14-2020 take 2 tablets by mouth once daily, then take 1 tablet by mouth once daily Fluconazole (Diflucan) 100 mg tablet Discontinued 100 MG PO DAILY September 21, 2020 1:00am October 14, 2020 12:50pm take two tabs on first day then 1 tab daily x 2 weeks fluticasone propionate 0.05 mg/actuat metered dose nasal [...] Quantity: 10 {Tablet} Refills: 0 Ordered: 12-Aug-2015 Pameladarshanpooja Alivia Start : 12-Aug-2015 End : 22-Aug-2015 Inactive levonorgestrel 0.107509 mg/hr intrauterine system (20 sources) Progestin, Progestin-containing Intrauterine Device Start: 10-15-19 End: 06-16-20 21 levonorgestrel 20 mcg/24 hours (6 yrs) 52 mg intrauterine device Discontinued 1 DEVICE INTRA-UTER ONCE October 14, 2020 1:00am June 16, 2021 9:35am as a single dose Start: 09-04-2020 End: 09-04-2020 levonorgestrel 20 mcg/24 yudith rs (6 yrs) 52 mg intrauterine device Discontinued 1 INSERT INTRA-UTER ONCE 1 September 04, 2020 12:43pm September 04, 2020 3:02pm Start: 06-30-2017 MIRENA (52 MG) 20 MCG/24HR IUD LEVONORGESTREL [id number] Sonya Benoit MD MIRENA, 20MCG/24 HR (Intrauterine Intrauterine Device) uad (20 MCG/24HR) Active loratadine 10 mg oral capsule (3 sources) Start: 06-16-2014 End: 02-23-2015 take 1 capsule by mouth once daily CLARITIN, 10MG (Oral Capsule) 1 (one) Capsule Capsule daily for 0 days Quantity: 30 {Capsule} Refills: 0 Ordered: 23-Feb-2015 Kate Fischer Start : 16-Jun-2014 End : 23-Feb-2015 Discontinued meclizine hydrochloride 12.5 mg oral tablet (10 sources) Antiemetic Start: 12-24-2021 End: 04-26-2022 take 12.5 mg by mouth three times daily Meclizine Discontinued 12.5 MG PO THREE TIMES A DAY December 24, 2021 12:00am April 26, 2022 3:02pm methylPREDNISolone 4 mg oral tablet (6 sources) Corticosteroid Start: 08-23-2022 End: 08-29-2022 take 1 tablet by mouth once Methylprednisolone (Medrol (Sushila)) 4 mg tablets,dose pack Discontinued 4 MG PO per package directions 01 02August 23, 2022 1:00am August 29, 2022 1:04am Start: 03-21-2014 End: 04-02-2014 take 1 tablet [...] Quantity: 30 {Tablet} Refills: 3 Ordered: 12-Aug-2015 Louisa Foreman LPN Start : 06-Apr-2015 End : 12-Aug-2015 Discontinued MULTIPLE VITAMINS-MINERALS (5 sources) Start: 06-30-2017 take 1 tablet by mouth once daily MULTIVITAMIN WOMEN TABS One tablet by mouth daily MULTIPLE VITAMINS-MINERALS [id number] Sonya Benoit MD Multivitamin preparation (3 sources) MULTIVITAMIN (Or al Liquid) for 0 days Refills: 0 Ordered: 13-Dec-2016 Louisa Foreman LPN Active naproxen 500 mg oral tablet (17 sources) Nonsteroidal Anti-inflammatory Drug Start: 04-14-2022 End: 05-26-2022 take 500 mg by mouth twice daily as needed Naproxen Discontinued 500 MG PO TWICE DAILY NEEDED April 14, 2022 12:00am May 26, 2022 1:54pm Start: 07-16-2020 End: 08-21-2020 take 250-500 mg by mouth every eight hours as needed Naproxen Discontinued 250 - 500 MG PO EVERY 8 HOURS NEEDED July 16, 2020 1:00am August 21, 2020 11:01am nitrofurantoin, macrocrystals 25 mg / nitrofurantoin, monohydrate 75 mg oral capsule (14 sources) Nitrofuran Antibacterial Start: 09-17-2021 End: 09-24-2021 take 1 capsule by mouth every twelve hours at mealtime Nitrofurantoin Monohyd/M-Cryst (Macrobid) 100 mg capsule Discontinued 100 MG PO Q12H 14 September 17, 2021 1:00am September 24, 2021 1:03am administer with a meal/food; swallow whole; do not open, crush, dissolve , or chew Start: 12-13-2016 End: 12-23-2016 take 1 capsule by mouth twice daily at mealtime Macrobid 100 MG Oral Capsule 1 (one) Capsule BID for 10 days Quantity: 20 {Capsule} Refills: 0 Ordered: 13-Dec-2016 Alivia Salinas Start : 13-Dec-2016 End : 23-Dec-2016 Inactive Comments: Take with food Comment on above: Take with food oxyCODONE hydrochloride 5 mg oral tablet (11 sources) Opioid Agonist Start: 07-16-2020 End: 07-23-2020 take 5 mg by mouth every six hours as needed Oxycodone Discontinued 5 MG PO EVERY 6 HOURS NEEDED 15 July 16, 2020 July 23, 2020 1:02am predniSONE 10 mg oral tablet (6 sources) [...] mg oral tablet (3 sources) Phenothiazine Start: 2010 End: 2010 take 1 tablet by mouth every six hours as needed PROMETHAZINE HCL, 25MG (Oral Tablet) 1 Tablet every 6hours prn for 0 days Quantity: 10 {Tablet} Refills: 0 Ordered: 18-Feb-2011 Maximino Kim RN Start : 03-Sep-2010 End : 18-Feb-2011 Inactive rho(d) immune globulin, human 1500 unt prefilled syringe (1 source) Human Immunoglobulin G Start: 2019 End: 2019 inject 1500 [IU] by intramuscular injection once RhoGAM Ultra-Filtered PLUS (rho(D) immune globulin) 1,500 unit (300 mcg) Discontinued 1500 UNIT IM ONCE 1 April 24, 2020 1:40pm April 24, 2020 1:56pm 72 hr scopolamine 0.0139 mg/hr transdermal system (3 sources) Anticholinergic Start: 2008 End: 2009 SCOPOLAMINE BASE, 1.5MG (Transdermal Patch 72 Hour) 1 (one) Patch 72HR q 72 hours for 0 days Refills: 0 Ordered: 24-Sep-2008 Kate Fischer Start : 24-Sep-2008 End : 30-Jun-2010 Discontinued Comments: This order discontinued per [facility]. Comment on above: This order discontin ued per [facility]. silver sulfADIAZINE 10 mg/ml topical cream (3 sources) Sulfonamide Antibacterial Start: 2010 End: 2010 SILVADENE, 1% (External Cream) 1 Cream apply qd for 0 days Quantity: 30 {Gram(s)} Refills: 0 Ordered: 15-Jul-2011 Start : 18-Feb-2011 End : 15-Jul-2011 Inactive spironolactone 25 mg oral tablet (16 sources) Aldosterone Antagonist Start: 2017 End: 2017 take 1 tablet by mouth once daily Spironolactone (Aldactone) 25 mg tablet Discontinued 25 MG PO DAILY May 29, 2018 12:00am July 26, 2018 11:37am Start: 06-30-2017 take 1 tablet by hina once daily ALDACTONE 25 MG TABS One tablet by mouth daily SPIRONOLACTONE [id number] Sonya Benoit MD spirulina 500 mg oral tablet (3 sources) End: 06-30-2010 take 3 tablets by mouth once daily SPIRULINA, 500MG (Oral Tablet) 3 tabs qd for 0 days Refills: 0 Ordered: 30-Jun-2010 Kate Fischer End : 30-Jun-2010 Inactive sulfamethoxazole 800 mg / trimethoprim 160 mg oral tablet (3 sources) Dihydrofolate Reductase Inhibitor Antibacterial, Sulfonamide Antimicrobial Start: 09-11-2007 End: 09-24-2008 take 1 tablet by mouth twice daily BACTRIM DS, 800-160MG (Oral Tablet) 1 (one) Tablet bid for 0 days Quantity: 6 {Tablet} Refills: 0 Ordered: 11-Sep-2007 Carlie Alfredo Start : 11-Sep-2007 End : 24-Sep-2008 Inactive Triamcinolone (3 sources) Corticosteroid Start: 11-10-2008 End: 06-30-2010 NASACORT AQ, 55MCG/ACT (Nasal Aerosol Solution) 2 (two) Aerosol Soln qd for 0 days Refills: 0 Ordered: 30-Jun-2010 Kate Fischer Start : 10-Nov-2008 End : 30-Jun-2010 Inactive vitamin b6 50 mg oral tablet (6 sources) Start: 04-14-2022 End: 04-26-2022 Pyridoxine (Vitamin B6) (Vitamin B-6) 50 mg Tablet Discontinued 50 MG PO NEEDED April 14, 2022 12:00am April 26, 2022 3:01pm Problems Active Problems Problem Classification Problem Date [...] for pre-employment examination] 12-13-2016 Episodic Anxiety disorders (13 sources) Anxiety; Translations: [Anxiety] Onset: 5 12-13-2016 Chronic Comment on above: chronic stable-ora nue present regimen Asthma (20 sources) Asthma; Translations: [Mild intermittent asthma] Onset: 7 06-30-2017 Chronic Comment on above: chronic stable-ora nue present regimen Asthma (6 sources) Asthma Bacterial infection; unspecified site (12 sources) Bacteria present; Translations: [Streptococcus, group B, as the cause of diseases classified elsewhere] Onset: 5 08-04-2020 Episodic Menjivar (4 sources) Menjivar of multiple specified sites, unspecified degree; Translations: [BURN, MULTIPLE SITES, UNSPECIFIED DEGREE] Resolved: 2 07-12-2012 Episodic Cardiac dysrhythmias (9 sources) Supraventricular tachycardia; Translations: [Paroxysmal supraventricular tachycardia] Onset: 5 12-13-2016 Chronic Cardiac dysrhythmias (6 sources) Palpitations; Translations: [Palpitations] Resolved: 2 06-30-2015 Episodic Conditions associated with dizziness or vertigo (7 sources) Benign paroxysmal positional vertigo; Translations: [Benign paroxysmal positional vertigo] Onset: 5 12-13-2016 Episodic Contraceptive and procreative management (3 sources) Encounter for insertion of intrauterine contraceptive device; Translations: [Encounter for insertion of intrauterine contraceptive device] Onset: 4 Episodic Digestive congenital anomalies (4 sources) Other [...] Episodic Immunizations and screening for infectious disease (20 sources) Need for prophylactic vaccination and inoculation against other specified disease; Translations: [Contact with or exposure to other viral diseases] Onset: 5 Resolved: 5 07-03-2015 Episodic Menstrual disorders (4 sources) Break-through bleeding; Translations: [Excessive and frequent menstruation with irregular cycle] Onset: 5 05-29-2023 Chronic Mycoses (6 sources) Candidiasis; Translations: [Candidiasis] Resolved: 6 12-04-2015 Episodic Nausea and vomiting (4 sources) Nausea; Translations: [Nausea] Resolved: 2 07-23-2015 Episodic Other circulatory disease (4 sources) Raynaud's phenomenon ; Translations: [Raynaud's phenomenon without gangrene] 12-13-2016 Chronic Other circulatory disease (5 sources) Abnormal chest sounds; Translations: [Abnormal lung sounds] Resolved: 0 06-30-2015 Episodic Other circulatory disease (11 sources) History of cardiac arrhythmia; Translations: [Personal history of other diseases of the circulatory system] 04-14-2022 Episodic Other circulatory disease (20 sources) Personal history of other diseases of the circulatory system; Translations: [Personal history of other diseases of circulatory system] Episodic Other complications of ; puerperium affecting management of mother (3 sources) delivery - delivered; Translations: [Encounter for delivery without indication] Episodic Other complications of ; puerperium affecting management of mother (1 source) Encounter for delivery without indication; Translations: [ delivery, without mention of indication, delivered, with or without mention of antepartum condition] Episodic Other complications of ; puerperium affecting management of mother (3 sources) Deliveries by ; Translations: [Encounter for delivery without indication] 04-22-2022 Episodic Other complications of (20 sources) RhD negative; Translations: [Other specified related conditions, unspecified trimester] 08-04-2020 Episodic Other complications of (20 sources) Other specified related conditions, unspecified trimester; Translations: [Other specified complications of , antepartum condition or complication] Onset: 5 Episodic Other complications of (8 sources) Group B Streptococcus carrier; Translations: [Streptococcus B carrier state complicating ] 04-14-2022 Episodic Other complications of (12 sources) Streptococcus B carrier state complicating ; Translations: [Supervision of other high-risk ] Episodic Other complications of (1 source) Supervision of elderly multigravida, third trimester; Translations: [Supervision of elderly multigravida, third trimester] Onset: 5 Episodic Other complications of (1 source) Supervision of high risk , unspecified, third trimester; Translations: [Supervision of high risk , unspecified, third trimester] Onset: 5 Episodic Other complications of (1 source) Other specified related conditions, third trimester; Translations: [Other specified related conditions, third trimester] Onset: 5 Episodic Other complications of (1 source) Supervision of high risk , unspecified, unspecified trimester; Translations: [Supervision of high risk , unspecified, unspecified trimester] Onset: 5 Episodic Other connective tissue disease (4 sources) [...] Translations: [Wheezing] Resolved: 5 02-23-2015 Episodic Other lower respiratory disease (1 source) Chronic cough; Translations: [Chronic cough] Onset: 5 Episodic Other and delivery including normal (20 sources) Normal ; Translations: [Encounter for supervision of normal first , unspecified trimester] Episodic Other upper respiratory disease (4 sources) Pain [...] otc antihistamine Otitis media and related conditions (12 sources) Otitis; Translations: [Dysfunction of eustachian tube] Resolved: 6 12-04-2015 Episodic Polyhydramnios and other problems of amniotic cavity (12 sources) Subchorionic hematoma; Translations: [Other specified disorders of amniotic fluid and membranes, unspecified trimester, not applicable or unspecified] Episodic Previous (1 source) Maternal care for unspecified type scar from previous delivery; Translations: [Maternal care for unspecified type scar from previous delivery] Onset: Episodic Residual codes; unclassified (3 sources) Family history of diabetes mellitus; Translations: [Family history of diabetes mellitus] Episodic Residual codes; unclassified (4 sources) Influenza-like symptoms; Translations: [Flu-like symptoms] Resolved: 6 12-04-2015 Episodic Residual codes; unclassified (3 sources) FH: Diabetes mellitus; Translations: [Family history of diabetes mellitus] 12-13-2016 Episodic Residual codes; unclassified (11 sources) History of vaccination; Translations: [Personal history of other drug therapy] 09-16-2021 Episodic Residual codes; unclassified (11 sources) Gestation period, 35 weeks; Translations: [35 weeks gestation of ] 08-04-2020 Episodic Residual codes; unclassified (20 sources) History of uterine scar from previous surgery; Translations: [Other postprocedural status] Episodic Residual codes; unclassified (3 sources) Finding of body mass index; Translations: [BMI between 19-24,adult] 12-13-2016 Episodic Residual codes; unclassified (3 sources) Non-smoker; Translations: [Non-smoker] 12-13-2016 Episodic Residual codes; unclassified (1 source) Unspecified blood type, Rh negative; Translations: [Unspecified blood type, Rh negative] Onset: 5 Episodic Residual codes; unclassified (1 source) 38 weeks gestation of ; Translations: [38 weeks gestation of ] Onset: 5 Episodic Residual codes; unclassified (1 source) 37 weeks gestation of ; Translations: [37 weeks gestation of ] Onset: 5 Episodic Residual codes; unclassified (1 source) 36 weeks gestation of ; Translations: [36 weeks gestation of ] Onset: 5 Episodic Residual codes; unclassified (1 source) 35 weeks gestation of ; Translations: [35 weeks gestation of ] Onset: 5 Episodic Residual codes; unclassified (1 source) 33 weeks gestation of ; Translations: [33 weeks gestation of ] Onset: 5 Episodic Residual codes; unclassified (1 source) 31 weeks gestation of ; Translations: [31 weeks gestation of ] Onset: 5 Episodic Skin and subcutaneous tissue infections (4 [...] (4 sources) Paroxysmal supraventricular tachycardia seen on monitor worker Unclassified (6 sources) Hyperglyceridemia Unclassified (2 sources) Raynaud's phenomenon without gangrene Unclassified (2 sources) Possible exposure to STD Viral infection (9 sources) Viral disease; Translations: [Infectious mononucleosis] Resolved: 06-29-2015 Episodic Past or Other Problems Problem Classification Problem Date Documented Date Episodic/Chronic Acute and chronic tonsillitis (2 sources) Acute and chronic tonsillitis Conditions associated with dizziness or vertigo (3 sources) Conditions associated with dizziness or vertigo Hemorrhage during ; abruptio placenta; placenta previa (12 sources) Low lying placenta; Translations: [Low lying placenta NOS or without hemorrhage, second trimester] Onset: 10-24-2024 04-24-2020 Episodic Other complications of (1 source) Supervision of elderly multigravida, unspecified trimester; Translations: [Supervision of elderly multigravida, unspecified trimester] Onset: 01-13-2025 Episodic Other female genital disorders (5 sources) Vaginal discharge; Translations: [Other specified noninflammatory disorders of vagina] Onset: 06-30-2017 06-30-2017 Episodic Other screening for suspected conditions (not mental disorders or infectious disease) (7 sources) Liver function tests abnormal; Translations: [Abnormal LFTs] Onset: 07-01-2024 12-13-2016 Episodic Comment on above: better Residual codes; unclassified (2 sources) Vaccination required; Translations: [Need for prophylactic vaccination and inoculation against other specified disease] Resolved: 02-10-2009 02-10-2009 Episodic Residual codes; unclassified (2 sources) At risk of sexually transmitted infection ; Translations: [Possible exposure to STD] Resolved: 02-23-2015 02-23-2015 Episodic Residual codes; unclassified (1 source) 25 weeks gestation of ; Translations: [25 weeks gestation of ] Onset: 01-13-2025 Episodic Residual codes; unclassified (1 source) 21 weeks gestation of ; Translations: [21 weeks gestation of ] Onset: 12-18-2024 Episodic Residual codes; unclassified (1 source) 17 weeks gestation of ; Translations: [17 weeks gestation of ] Onset: 11-20-2024 Episodic Residual codes; unclassified (1 source) 13 weeks gestation of ; Translations: [13 weeks gestation of ] Onset: 10-22-2024 Episodic Residual codes; unclassified (1 source) 12 weeks gestation of ; Translations: [12 weeks gestation of ] Onset: 10-14-2024 Episodic Unclassified (12 sources) Unspecified Diagnosis Resolved: [...] dysfunction (381.81) Unclassified (2 sources) Otitis, right Unclassified (11 sources) Labor finding; Translations: [Active labor] 08-04-2020 Urinary tract infections (9 sources) Acute urinary tract infection; Translations: [Urinary tract infection, acute] Onset: 10-14-2024 12-13-2016 Episodic Urinary tract infections (2 sources) Urinary tract infections Results Test Name Value Interpretation Reference Range Facility Dance Director Office Visit Reporton 04-17-2025 Dance Director Office Visit Report [facility]'s [address], [address] [place] [id number] OFFICE VISIT Date of Service: 04/17/25 MR#: [id number] Acct: [id number] Name: PRISCILA NGO Rep #: [id number] : 1985 Provider: Dr. Sonya valentino MD Age/Sex: 39/F Location: [facility] [place] Status: Signed Intake Vital Signs 11/20/24 14:23 04/10/25 08:51 04/17/25 16:06 Height 5 ft 5 in 5 ft 5 in 5 ft 5 in Weight: 170 lb 7 oz BMI 28.3 BP 135/83 H Intake Visit Reasons: 38wk4d ob *SM csection Leach Cell Operator Required: No Is patient in pain?: No Allergies amoxicillin Adverse Reaction (Mild, Verified 04/17/25 16:01) Vomiting erythromycin base Adverse Reaction (Mild, Verified 04/17/25 16:01) Vomiting azithromycin Adverse Reaction (Verified 04/17/25 16:01) Vomiting Medications ???Medication ???Instructions ???Recorded ???Confirmed ???Type Saccharomyces boulardii 250 mg 250 mg PO ONCE 06/07/24 04/17/25 H istory capsule (Daily Probiotic (S. boulardii)) multivitamin no.47-iron fum 27 1 cap PO DAILY 06/07/24 04/17/25 H istory mg-folate no.1 1 mg-dha 300 mg capsule (PNV-DHA) pyridoxine (vitamin B6) 200 mg 200 mg PO BID 09/19/24 04/17/25 Hi story tablet famotidine 20 mg tablet (Pepcid) 20 mg PO BID #60 tabs 12/18/2412/06 Rx albuterol sulfate 90 mcg/actuation 1 puff inhalation ONCE PRN 04/1704/17/25 History aerosol inhaler buspirone 5 mg tablet 5 mg PO BID 04/17/25 04/17/25 Hist ory docusate sodium 100 mg capsule 100 mg PO BID 04/17/25 04/17/25 Hi story (Colace) meclizine 12.5 mg tablet 12.5 mg PO BID motion sickness 12/06 History Last Menstrual Period: 07/21/24 Zika: Zika virus screening: Negative : No PFSH PFSH Medical History Rh negative status during Acute sinusitis, unspecified SVT (supraventricular tachycardia) Surgical History Delivery by section History of wisdom tooth extraction, class II edentulism Family History Father auto immune disorder psoriatic arthritis. Cancer multiple tumors with mets, no definitive primary. 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: No pets and animals: Yes pets and animals: dog(s) history of recent travel: No sexually active: Yes Smoking Status: Never smoker alcohol intake: current details: Not while substance use type: does not use well-balanced diet: daily or most days caffeine: Yes Type: coffee eating out: rarely or never during the past year weight has: remained stable what type of physical activity do you participate in: walking frequency: 5-6 times per week duration: 45-60 minutes/day tish/rastafari: Anglican seatbelt use: always do you feel safe at home: Yes additional social history: : Trang- History 3 Elective abortions Hx Para 2 Spontaneous abortions Hx # Term Pregnancies 2 Ectopic pregnancies Hx # Pregnancies Multiple births # of living children 2 Past Pregnancies Del. Date Name GA/Weeks Outcome Route Bth Weight Infant Gen Labor Lgth Anesthesia Del Locatn Provider FOB 07/16/20 Meron 40 live - full term 7lbs 13oz Female epidural W CH Tiffany Trang 04/14/22 Maira 38 live - full term 8lbs 5oz Female spinal [facility] Sonya Menard Delivery Date: 07/16/20 Last Updated by: Sathya English arrest of descent Delivery Date: 04/14/22 Last Updated by: Federica Alexandra RLTCS SM 39 HPI 38wk4d ob *SM csection Details: PRISCILA NGO is a 39 year old who presents for routine OB visit. OB Visit ALVAREZ Calculator Estimated Delivery Date Method Current WG Current Estimate 04/27/25 LMP (Certain) 38w 4d Expected Delivery Route/Plan R C/S with SM Specific Issue/Plans Covid status: [] Flu vaccine: [] Tdap vaccine: given 02/05/25 Rhogam: given 02/05/25 LARC form signed: yes Problem list reviewed and updated with the most current plan of care details and appropriate orders placed. movement and labor precautions reviewed. Relevant counseling for the gestational age provided. Continue routine care and follow up unless otherwise noted in visit notes/ (more content not included)... Normal [facility] Dance Director Office Visit Reporton 04-10-2025 Dance Director Office Visit Report [facility] Care [address] [place] [address], [address] [place] [address] OFFICE VISIT Date of Service: 04/10/25 MR#: [id number] Acct: [id number] Name: PRISCILA NGO Rep #: [id number] : 1985 Provider: Dr. Sonya valentino MD Age/Sex: 39/F Location: [facility] [place] Status: Signed Intake Vital Signs 11/20/24 14:23 04/04/25 09:45 04/10/25 08:51 Height 5 ft 5 in 5 ft 5 in 5 ft 5 in Weight: 168 lb 7 oz BMI 28.0 BP 125/80 H Intake Visit Reasons: 37wk4d ob *SM csection Leach Cell Operator Required: No Is patient in pain?: No Feel stressed/tense/nervous /anxious/difficulty sleeping: not at all Allergies amoxicillin Adverse Reaction (Mild, Verified 04/10/25 08:48) Vomiting erythromycin base Adverse Reaction (Mild, Verified 04/10/25 08:48) Vomiting azithromycin Adverse Reaction (Verified 04/10/25 08:48) Vomiting Medications ???Medication ???Instructions ???Recorded ???Confirmed ???Type Saccharomyces boulardii 250 mg 250 mg PO ONCE 06/07/24 04/10/25 H istory capsule (Daily Probiotic (S. boulardii)) multivitamin no.47-iron fum 27 1 cap PO DAILY 06/07/24 04/10/25 H istory mg-folate no.1 1 mg-dha 300 mg capsule (PNV-DHA) albuterol sulfate 90 mcg/actuation 1 puff inhalation ONCE 09/06/24 04/10/25 History aerosol inhaler buspirone 5 mg tablet 5 mg PO TID 09/06/24 04/10/25 Hist ory pyridoxine (vitamin B6) 200 mg 200 mg PO BID 09/19/24 04/10/25 Hi story tablet meclizine 12.5 mg tablet 12.5 mg PO TID PRN motion sickness 11/20/24 04/10/25 Rx #90 tabs famotidine 20 mg tablet (Pepcid) 20 mg PO BID #60 tabs 12/18/24 Rx loratadine 10 mg capsule (Allergy 10 mg PO QDAY 02/05/25 04/10/25 H istory Relief (loratadine)) ipratropium bromide 42 mcg (0.06 2 spray intranasal DAILY 02/26/25 04/10/25 History %) nasal spray Last Menstrual Period: 07/21/24 Zika: Zika virus screening: Negative : No PFSH PFSH Medical History Rh negative status during Acute sinusitis, unspecified SVT (supraventricular tachycardia) Surgical History Delivery by section History of wisdom tooth extraction, class II edentulism Family History Father auto immune disorder psoriatic arthritis. Cancer multiple tumors with mets, no definitive primary. 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 occupation: [employer] current occupational exposures/hazards: No pets and animals: Yes pets and animals: dog(s) history of recent travel: No sexually active: Yes Smoking Status: Never smoker alcohol intake: current details: Not while substance use type: does not use well-balanced diet: daily or most days caffeine: Yes Type: coffee eating out: rarely or never during the past year weight has: remained stable what type of physical activity do you participate in: walking frequency: 5-6 times per week duration: 45-60 minutes/day tish/rastafari: Anglican seatbelt use: always do you feel safe at home: Yes additional social history: : Trang- Roll Examiner History 3 Elective abortions Hx Para 2 Spontaneous abortions Hx # Term Pregnancies 2 Ectopic pregnancies Hx # Pregnancies Multiple births # of living children 2 Past Pregnancies Del. Date Name GA/Weeks Outcome Route Bth Weight Infant Gen Labor Lgth Anesthesia Del Locatn Provider FOB 07/16/20 Meron 40 live - full term 7lbs 13oz Female epidural W CH Tiffany Trang 04/14/22 Maira 38 live - full term 8lbs 5oz Female spinal [facility] Sonya Menard Delivery Date: 07/16/20 Last Updated by: Sathya English arrest of descent Delivery Date: 04/14/22 Last Updated by: Federica Alexandra RLTCS 39 HPI 37wk4d ob *SM csection Details: PRISCILA NGO is a 39 year old who presents for routine OB visit. OB Visit ALVAREZ Calculator Estimated Delivery Date Method Current WG Current Estimate 04/27/25 LMP (Certain) 37w 4d Expected Delivery Route/Plan R C/S with Specific Issue/Plans Covid status: [] Flu vaccine: [] Tdap vaccine: given 02/05/25 Rhogam: given 02/05/25 LARC form signed: yes Problem list reviewed and updated with the most current plan of care details and appropriat (more content not included)... Normal [facility] Rule out Beta Strep (Grp. B) on 04-08-2025 MELE Streptococcus agalactiae (B) Amount Growth Growth Streptococcus agalactiae (B): REACTION Ampicillin Islt PLACIDO <=0.25 cefTRIAXone Islt PLACIDO <=0.12 S Clindamycin Islt PLACIDO <=0.25 S Clindamycin.induced Susc Islt NEG Linezolid Islt PLACIDO <=2 S Vancomycin Islt PLACIDO 0.5 S Normal [facility] Comment on above: Performed By: #### M [id number] #### [facility] [address] [place], [address] Dance Director Office Visit Reporton 04-04-2025 Dance Director Office Visit Report [facility] [address], [address] [place] [address] OFFICE VISIT Date of Service: 04/04/25 MR#: [id number] Acct: [id number] Name: PRISCILA NGO Rep #: [id number] : 1985 Provider: Dr. Sonya valentino MD Age/Sex: 39/F Location: [facility] [place] Status: Signed Intake Vital Signs 03/27/25 14:58 04/04/25 09:43 04/04/25 09:45 Height 5 ft 5 in 5 ft 5 in 5 ft 5 in Weight: 167 lb 9 oz BMI 27.8 BP 137/81 H Intake Visit Reasons: 36wk ob *SM csection Leach Cell Operator Required: No Is patient in pain?: No Feel stressed/tense/nervous /anxious/difficulty sleeping: not at all Allergies amoxicillin Adverse Reaction (Mild, Verified 04/04/25 09:42) Vomiting erythromycin base Adverse Reaction (Mild, Verified 04/04/25 09:42) Vomiting azithromycin Adverse Reaction (Verified 04/04/25 09:42) Vomiting Medications ???Medication ???Instructions ???Recorded ???Confirmed ???Type Saccharomyces boulardii 250 mg 250 mg PO ONCE 06/07/24 04/04/25 H istory capsule (Daily Probiotic (S. boulardii)) multivitamin no.47-iron fum 27 1 cap PO DAILY 06/07/24 04/04/25 H istory mg-folate no.1 1 mg-dha 300 mg capsule (PNV-DHA) albuterol sulfate 90 mcg/actuation 1 puff inhalation ONCE 09/06/24 04/04/25 History aerosol inhaler buspirone 5 mg tablet 5 mg PO TID 09/06/24 04/04/25 Hist ory pyridoxine (vitamin B6) 200 mg 200 mg PO BID 09/19/24 04/04/25 Hi story tablet meclizine 12.5 mg tablet 12.5 mg PO TID PRN motion sickness 11/20/24 04/04/25 Rx #90 tabs famotidine 20 mg tablet (Pepcid) 20 mg PO BID #60 tabs 12/18/24 Rx loratadine 10 mg capsule (Allergy 10 mg PO QDAY 02/05/25 04/04/25 H istory Relief (loratadine)) ipratropium bromide 42 mcg (0.06 2 spray intranasal DAILY 02/26/25 04/04/25 History %) nasal spray Last Menstrual Period: 07/21/24 Zika: Zika virus screening: Negative : No PFSH PFSH Medical History Rh negative status during Acute sinusitis, unspecified SVT (supraventricular tachycardia) Surgical History Delivery by section History of wisdom tooth extraction, class II edentulism Family History Father auto immune disorder psoriatic arthritis. Cancer multiple tumors with mets, no definitive primary. 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 occupation: [employer] - [employer] Worker [employer] current occupational exposures/hazards: No pets and animals: Yes pets and animals: dog(s) history of recent travel: No sexually active: Yes Smoking Status: Never smoker alcohol intake: current details: Not while substance use type: does not use well-balanced diet: daily or most days caffeine: Yes Type: coffee eating out: rarely or never during the past year weight has: remained stable what type of physical activity do you participate in: walking frequency: 5-6 times per week duration: 45-60 minutes/day tish/rastafari: Anglican seatbelt use: always do you feel safe at home: Yes additional social history: : Stephen Su History 3 Elective abortions Hx Para 2 Spontaneous abortions Hx # Term Pregnancies 2 Ectopic pregnancies Hx # Pregnancies Multiple births # of living children 2 Past Pregnancies Del. Date Name GA/Weeks Outcome Route Bth Weight Infant Gen Labor Lgth Anesthesia Del Francescoatzak Provider FOB 07/16/20 Meron 40 live - full term 7lbs 13oz Female epidural W CH Tiffanydave Menard 04/14/22 Maira 38 live - full term 8lbs 5oz Female spinal [facility] Sonya Menard Delivery Date: 07/16/20 Last Updated by: Sathya English arrest of descent Delivery Date: 04/14/22 Last Updated by: Federica Alexandra RLTCS SM 39 HPI 36wk ob *SM csection Details: PRISCILA NGO is a 39 year old who presents for routine OB visit. OB Visit ALVAREZ Calculator Estimated Delivery Date Method Current WG Current Estimate 04/27/25 LMP (Certain) 36w 5d Expected Delivery Route/Plan R C/S with SM Specific Issue/Plans Covid status: [] Flu vaccine: [] Tdap vaccine: given 02/05/25 Rhogam: given 02/05/25 LARC form signed: yes Problem list reviewed and updated with the most current plan of care details and appropriate or (more content not included)... Normal [facility] Dance Director Office Visit Reporton 03-27-2025 Dance Director Office Visit Report [facility] [address] [place] [address], [address] [place] [address] OFFICE VISIT Date of Service: 03/27/25 MR#: [id number] Acct: [id number] Name: PRISCILA NGO Rep #: [id number] : 1985 Provider: Dr. Sonya valentino MD Age/Sex: 39/F Location: [facility] [place] Status: Signed Intake Vital Signs 11/20/24 14:23 03/13/25 09:46 03/27/25 14:55 03/27/25 14:58 Height 5 ft 5 in 5 ft 5 in 5 ft 5 in 5 ft 5 in Weight: 168 lb 2 oz BMI 27.9 BP 124/79 H Intake Visit Reasons: 35wk4d ob *SM csection Leach Cell Operator Required: No Is patient in pain?: No Allergies amoxicillin Adverse Reaction (Mild, Verified 03/27/25 14:54) Vomiting erythromycin base Adverse Reaction (Mild, Verified 03/27/25 14:54) Vomiting azithromycin Adverse Reaction (Verified 03/27/25 14:54) Vomiting Medications ???Medication ???Instructions ???Recorded ???Confirmed ???Type Saccharomyces boulardii 250 mg 250 mg PO ONCE 06/07/24 03/27/25 H istory capsule (Daily Probiotic (S. boulardii)) multivitamin no.47-iron fum 27 1 cap PO DAILY 06/07/24 03/27/25 H istory mg-folate no.1 1 mg-dha 300 mg capsule (PNV-DHA) albuterol sulfate 90 mcg/actuation 1 puff inhalation ONCE 09/06/24 03/27/25 History aerosol inhaler buspirone 5 mg tablet 5 mg PO TID 09/06/24 03/27/25 Hist ory pyridoxine (vitamin B6) 200 mg 200 mg PO BID 09/19/24 03/27/25 Hi story tablet meclizine 12.5 mg tablet 12.5 mg PO TID PRN motion sickness 11/20/24 03/27/25 Rx #90 tabs famotidine 20 mg tablet (Pepcid) 20 mg PO BID #60 tabs 12/18/24 Rx loratadine 10 mg capsule (Allergy 10 mg PO QDAY 02/05/25 03/27/25 H istory Relief (loratadine)) ipratropium bromide 42 mcg (0.06 2 spray intranasal DAILY 02/26/25 03/27/25 History %) nasal spray Last Menstrual Period: 07/21/24 Zika: Zika virus screening: Negative : No PFSH PFSH Medical History Rh negative status during Acute sinusitis, unspecified SVT (supraventricular tachycardia) Surgical History Delivery by section History of wisdom tooth extraction, class II edentulism Family History Father auto immune disorder psoriatic arthritis. Cancer multiple tumors with mets, no definitive primary. 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 current occupational exposures/hazards: No pets and animals: Yes pets and animals: dog(s) history of recent travel: No sexually active: Yes Smoking Status: Never smoker alcohol intake: current details: Not while substance use type: does not use well-balanced diet: daily or most days caffeine: Yes Type: coffee eating out: rarely or never during the past year weight has: remained stable what type of physical activity do you participate in: walking frequency: 5-6 times per week duration: 45-60 minutes/day tish/rastafari: Anglican seatbelt use: always do you feel safe at home: Yes additional social history: : Trang- History 3 Elective abortions Hx Para 2 Spontaneous abortions Hx # Term Pregnancies 2 Ectopic pregnancies Hx # Pregnancies Multiple births # of living children 2 Past Pregnancies Del. Date Name GA/Weeks Outcome Route Bth Weight Infant Gen Labor Lgth Anesthesia Del Locatn Provider FOB 07/16/20 Meron 40 live - full term 7lbs 13oz Female epidural W [facility] Tiffany Trang 04/14/22 Maira 38 live - full term 8lbs 5oz Female spinal [facility] Sonya Menard Delivery Date: 07/16/20 Last Updated by: Sathya English arrest of descent Delivery Date: 04/14/22 Last Updated by: Federica Alexandra RLTCS 39 HPI 35wk4d ob *SM csection Details: PRISCILA NGO is a 39 year old who presents for routine OB visit. OB Visit ALVAREZ Calculator Estimated Delivery Date Method Current WG Current Estimate 04/27/25 LMP (Certain) 35w 4d Expected Delivery Route/Plan R C/S with Specific Issue/Plans Covid status: [] Flu vaccine: [] Tdap vaccine: given 02/05/25 Rhogam: given 02/05/25 LARC form signed: yes Problem list reviewed and updated with the most current plan of care details and appropriate orders placed. movement and lab (more content not included)... Normal [facility] Dance Director Office Visit Reporton 03-13-2025 Dance Director Office Visit Report [facility] [address], [address] [place] [address] OFFICE VISIT Date of Service: 03/13/25 MR#: [id number] Acct: [id number] Name: PRISCILA NGO Rep #: [id number] : 1985 Provider: Dr. Sonya valentino MD Age/Sex: 39/F Location: [facility] [place] Status: Signed Intake Vital Signs 11/20/24 14:23 02/26/25 15:33 03/13/25 09:46 Height 5 ft 5 in 5 ft 5 in 5 ft 5 in Weight: 167 lb 2 oz BMI 27.8 BP 129/77 H Intake Visit Reasons: 33wk4d ob *SM csection Leach Cell Operator Required: No Is patient in pain?: No Allergies amoxicillin Adverse Reaction (Mild, Verified 02/26/25 15:34) Vomiting erythromycin base Adverse Reaction (Mild, Verified 02/26/25 15:34) Vomiting azithromycin Adverse Reaction (Verified 02/26/25 15:34) Vomiting Medications ???Medication ???Instructions ???Recorded ???Confirmed ???Type Saccharomyces boulardii 250 mg 250 mg PO ONCE 06/07/24 03/13/25 H istory capsule (Daily Probiotic (S. boulardii)) multivitamin no.47-iron fum 27 1 cap PO DAILY 06/07/24 03/13/25 H istory mg-folate no.1 1 mg-dha 300 mg capsule (PNV-DHA) albuterol sulfate 90 mcg/actuation 1 puff inhalation ONCE 09/06/24 03/13/25 History aerosol inhaler buspirone 5 mg tablet 5 mg PO TID 09/06/24 03/13/25 Hist ory pyridoxine (vitamin B6) 200 mg 200 mg PO BID 09/19/24 03/13/25 Hi story tablet meclizine 12.5 mg tablet 12.5 mg PO TID PRN motion sickness 11/20/24 03/13/25 Rx #90 tabs famotidine 20 mg tablet (Pepcid) 20 mg PO BID #60 tabs 12/18/24 Rx loratadine 10 mg capsule (Allergy 10 mg PO QDAY 02/05/25 03/13/25 H istory Relief (loratadine)) ipratropium bromide 42 mcg (0.06 2 spray intranasal DAILY 02/26/25 03/13/25 History %) nasal spray Last Menstrual Period: 07/21/24 Zika: Zika virus screening: Negative : No PFSH PFSH Medical History Rh negative status during Acute sinusitis, unspecified SVT (supraventricular tachycardia) Surgical History Delivery by section History of wisdom tooth extraction, class II edentulism Family History Father auto immune disorder psoriatic arthritis. Cancer multiple tumors with mets, no definitive primary. 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: No pets and animals: Yes pets and animals: dog(s) history of recent travel: No sexually active: Yes Smoking Status: Never smoker alcohol intake: current details: Not while substance use type: does not use well-balanced diet: daily or most days caffeine: Yes Type: coffee eating out: rarely or never during the past year weight has: remained stable what type of physical activity do you participate in: walking frequency: 5-6 times per week duration: 45-60 minutes/day tish/rastafari: Anglican seatbelt use: always do you feel safe at home: Yes additional social history: : TrangTha Su History 3 Elective abortions Hx Para 2 Spontaneous abortions Hx # Term Pregnancies 2 Ectopic pregnancies Hx # Pregnancies Multiple births # of living children 2 Past Pregnancies Del. Date Name GA/Weeks Outcome Route Bth Weight [facility]/16/20 Meron 40 live - full term 7lbs 13oz Female epidural W CH Tiffany Menard 04/14/22 Maira 38 live - full term 8lbs 5oz Female spinal [facility] Sonya Sellerschandni Menard Delivery Date: 07/16/20 Last Updated by: Sathya English arrest of descent Delivery Date: 04/14/22 Last Updated by: Federica Alexandra RLTCS SM 39 HPI 33wk4d ob *SM csection Details: PRISCILA NGO is a 39 year old who presents for routine OB visit. OB Visit ALVAREZ Calculator Estimated Delivery Date Method Current WG Current Estimate 04/27/25 LMP (Certain) 33w 4d Expected Delivery Route/Plan R C/S with SM Specific Issue/Plans Covid status: [] Flu vaccine: [] Tdap vaccine: given 02/05/25 Rhogam: given 02/05/25 LARC form signed: yes Problem list reviewed and updated with the most current plan of care details and appropriate orders placed. movement and labor precautions reviewed. (more content not included)... Normal [facility] Dance Director Office Visit Reporton 02-26-2025 Dance Director Office Visit Report [facility] [address] [place] [address], [address] [place] [address] OFFICE VISIT Date of Service: 02/26/25 MR#: [id number] Acct: [id number] Name: PRISCILA NGO Rep #: [id number] : 1985 Provider: Dr. Sonya valentino MD Age/Sex: 39/F Location: [facility] [place] Status: Signed Intake Vital Signs 11/20/24 14:23 02/05/25 13:01 02/26/25 15:33 Height 5 ft 5 in 5 ft 5 in 5 ft 5 in Weight: 165 lb BMI 27.4 BP 107/70 Intake Visit Reasons: 31wk3d ob *SM csection Leach Cell Operator Required: No Is patient in pain?: No Allergies amoxicillin Adverse Reaction (Mild, Verified 02/26/25 15:34) Vomiting erythromycin base Adverse Reaction (Mild, Verified 02/26/25 15:34) Vomiting azithromycin Adverse Reaction (Verified 02/26/25 15:34) Vomiting Medications ???Medication ???Instructions ???Recorded ???Confirmed ???Type Saccharomyces boulardii 250 mg 250 mg PO ONCE 06/07/24 02/26/25 H istory capsule (Daily Probiotic (S. boulardii)) multivitamin no.47-iron fum 27 1 cap PO DAILY 06/07/24 02/26/25 H istory mg-folate no.1 1 mg-dha 300 mg capsule (PNV-DHA) albuterol sulfate 90 mcg/actuation 1 puff inhalation ONCE 09/06/24 02/26/25 History aerosol inhaler buspirone 5 mg tablet 5 mg PO TID 09/06/24 02/26/25 Hist ory pyridoxine (vitamin B6) 200 mg 200 mg PO BID 09/19/24 02/26/25 Hi story tablet meclizine 12.5 mg tablet 12.5 mg PO TID PRN motion sickness 11/20/24 02/26/25 Rx #90 tabs famotidine 20 mg tablet (Pepcid) 20 mg PO BID #60 tabs 12/18/24 Rx loratadine 10 mg capsule (Allergy 10 mg PO QDAY 02/05/25 02/26/25 H istory Relief (loratadine)) ipratropium bromide 42 mcg (0.06 2 spray intranasal DAILY 02/26/25 02/26/25 History %) nasal spray Last Menstrual Period: 07/21/24 Zika: Zika virus screening: Negative : No PFSH PFSH Medical History Rh negative status during Acute sinusitis, unspecified SVT (supraventricular tachycardia) Surgical History Delivery by section History of wisdom tooth extraction, class II edentulism Family History Father auto immune disorder psoriatic arthritis. Cancer multiple tumors with mets, no definitive primary. 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: No pets and animals: Yes pets and animals: dog(s) history of recent travel: No sexually active: Yes Smoking Status: Never smoker alcohol intake: current details: Not while substance use type: does not use well-balanced diet: daily or most days caffeine: Yes Type: coffee eating out: rarely or never during the past year weight has: remained stable what type of physical activity do you participate in: walking frequency: 5-6 times per week duration: 45-60 minutes/day tish/rastafari: Anglican seatbelt use: always do you feel safe at home: Yes additional social history: : Stephen Su History 3 Elective abortions Hx Para 2 Spontaneous abortions Hx # Term Pregnancies 2 Ectopic pregnancies Hx # Pregnancies Multiple births # of living children 2 Past Pregnancies Del. Date Name GA/Weeks Outcome Route Bth Weight Gen Labor Lgth Anesthesia Del Locatn Provider FOB 07/16/20 Meron 40 live - full term 7lbs 13oz Female epidural W CH Tiffany Trang 04/14/22 Maira 38 live - full term 8lbs 5oz Female spinal [facility] Sonya Menard Delivery Date: 07/16/20 Last Updated by: Sathya English arrest of descent Delivery Date: 04/14/22 Last Updated by: Federica Alexandra RLTCS 39 HPI 31wk3d ob *SM csection Details: PRISCILA NGO is a 39 year old who presents for routine OB visit. OB Visit ALVAREZ Calculator Estimated Delivery Date Method Current WG Current Estimate 04/27/25 LMP (Certain) 31w 3d Expected Delivery Route/Plan R C/S with Specific Issue/Plans Covid status: [] Flu vaccine: [] Tdap vaccine: given 02/05/25 Rhogam: given 02/05/25 LARC form signed: yes Problem list reviewed and updated with the most current plan of care details and appropriate orders placed. Relevant counseling for the gestational age provided. (more content not included)... Normal [facility] Comprehensive Metabolic Prof nona 02-12-2025 Albumin [Mass/Vol] 3.6 g/dL Normal 3.5-5.0 [facility] Comment on above: Order Comment: Order Date: 02/11/25Order Info: 0786-1 - CMP Performed By: #### L [id number] ####[facility] [address] [place], [address] Albumin/Globulin [Mass ratio] 1.4 {ratio} Normal 0.9-2.4 [facility] Comment on above: Order Comment: Order Date: 02/11/25Order Info: 0786-1 - CMP Performed By: #### L 500.4050 ####[facility] [address] [place], [address] ALK PHOS 113 U/L High 35-104 [facility] Comment on above: Order Comment: Order Date: 02/11/25Order Info: 0786-1 - CMP Performed By: #### L 500.4050 ####[facility] [address] [place], [address] ALT [Catalytic activity/Vol] 13 U/L Normal <=34 [facility] Comment on above: Order Comment: Order Date: 02/11/25Order Info: 0786-1 - CMP Performed By: #### L 500.4050 ####[facility] [address] [place], [address] AST [Catalytic activity/Vol] 19 U/L Normal <=31 [facility] Comment on above: Order Comment: Order Date: 02/11/25Order Info: 0786-1 - CMP Performed By: #### L 500.4050 ####[facility] [address] [place], [address] Bilirubin [Mass/Vol] 0.27 mg/dL Normal 0.00-1.30 [facility] Comment on above: Order Comment: Order Date: 02/11/25Order Info: 0786-1 - CMP Performed By: #### L [id number] ####[facility] [address] [place], [address] BUN/CRE 12.7 RATIO Normal 10-20 [facility] Comment on above: Order Comment: Order Date: 02/11/25Order Info: 0786-1 - CMP Performed By: #### L [id number] ####[facility] [address] [place], [address] Calcium [Mass/Vol] 8.7 mg/dL Normal 7.6-11.0 [facility] Comment on above: Order Comment: Order Date: 02/11/25Order Info: 0786-1 - CMP Performed By: #### L 500.4050 ####[facility] [address] [place], [address] Chloride [Moles/Vol] 103 mmol/L Normal 98-108 [facility] Comment on above: Order Comment: Order Date: 02/11/25Order Info: 0786-1 - CMP Performed By: #### L 500.4050 ####[facility] [address] [place], [address] CO2 [Moles/Vol] 22.1 mmol/L Normal 21.0-32.0 [facility] Comment on above: Order Comment: Order Date: 02/11/25Order Info: 0786-1 - CMP Performed By: #### L 500.4050 ####[facility] [address] [place], [address] Creatinine [Mass/Vol] 0.68 mg/dL Low 0.70-1.20 [facility] Comment on above: Order Comment: Order Date: 02/11/25Order Info: 0786-1 - CMP Performed By: #### L 500.4050 ####[facility] [address] [place], [address] GAP 12 Normal 5-15 [facility] Comment on above: Order Comment: Order Date: 02/11/25Order Info: 0786-1 - CMP Performed By: #### L 500.4050 ####[facility] [address] [place], [address] GFR/1.73 sq M.predicted among non-blacks MDRD (S/P/Bld) [Vol rate/Area] 114 mL/min/{1.73_m2} Normal >60 [facility] Comment on above: Order Comment: Order Date: 02/11/25Order Info: 0786-1 - CMP Result Comment: mL/m in/1.73m2 CKD-EPI Creatinine Equation (2020) Performed By: #### L [id number] ####[facility] [address] [place], [address] Globulin (S) [Mass/Vol] 2.6 g/dL Normal 2.2-4.2 [facility] Comment on above: Order Comment: Order Date: 02/11/25Order Info: 0786-1 - CMP Performed By: #### L [id number] ####[facility] [address] [place], [address] Glucose [Mass/Vol] 80 mg/dL Normal 70-99 [facility] Comment on above: Order Comment: Order Date: 02/11/25Order Info: 0786-1 - CMP Performed By: #### L 500.4050 ####[facility] [address] [place], [address] Potassium [Moles/Vol] 3.6 mmol/L Normal 3.3-5.1 [facility] Comment on above: Order Comment: Order Date: 02/11/25Order Info: 0786-1 - CMP Performed By: #### L 500.4050 ####[facility] [address] [place], [address] Sodium [Moles/Vol] 137 mmol/L Normal 133-145 [facility] Comment on above: Order Comment: Order Date: 02/11/25Order Info: 0786-1 - CMP Performed By: #### L 500.4050 ####[facility] [address] [place], [address] T PROT 6.2 g/dL Normal 5.9-8.4 [facility] Comment on above: Order Comment: Order Date: 02/11/25Order Info: 0786-1 - CMP Performed By: #### L 500.4050 ####[facility] [address] [place], [address] Urea nitrogen [Mass/Vol] 9 mg/dL Normal 4-19 [facility] Comment on above: Order Comment: Order Date: 02/11/25Order Info: 0786-1 - CMP Performed By: #### L 500.4050 ####[facility] [address] [place], [address] CBC W/Diff, Automatedon 01-13-2024 Absolute Lymph 1.52 X10 3/uL Normal 0.83-4.51 [facility] Comment on above: Performed By: #### M 100.2200, L7000.1800 #### [facility] [address] [place], [address] Absolute Neut 9.7 X10 3/uL High 2.0-7.7 [facility] Comment on above: Performed By: #### M 100.2200, L7000.1800 #### [facility] [address] [place], [address] Basophils/100 WBC (Bld) 0.3 % Normal 0-1 [facility] Comment on above: Performed By: #### M 100.2200, L7000.1800 #### [facility] [address] [place], [address] Eosinophils/100 WBC (Bld) 0.8 % Normal 0-5 [facility] Comment on above: Performed By: #### M 100.2200, L7000.1800 #### [facility] [address] [place], [address] Erythrocyte distribution width (RBC) [Ratio] 13.3 % Normal 11.6-14.6 [facility] Comment on above: Performed By: #### M 100.2200, L7000.1800 #### [facility] [address] [place], [address] Hematocrit (Bld) [Volume fraction] 38.1 % Normal 37-47 [facility] Comment on above: Performed By: #### M 100.2200, L7000.1800 #### [facility] [address] [place], [address] Hemoglobin (Bld) [Mass/Vol] 12.8 g/dL Normal 12.0-15.0 [facility] Comment on above: Performed By: #### M 100.2200, L7000.1800 #### [facility] [address] [place], [address] IG% 1.200 High 0.0-0.9 [facility] Comment on above: Result Comment: IG% - Immature Granulocytes (promyelocytes, myelocytes and metamyelocytes) > 1% indicates that a LEFT SHIFT is Present. Performed By: #### M 100.2200, L7000.1800 #### [facility] [address] [place], [address] Lymphocytes/100 WBC (Bld) 12.4 % Low 19-41 [facility] Comment on above: Performed By: #### M 100.2200, L7000.1800 #### [facility] [address] [place], [address] MCH (RBC) [Entitic mass] 31.1 pg Normal 27.0-32.0 [facility] Comment on above: Performed By: #### M 100.2200, L7000.1800 #### [facility] [address] [place], [address] MCHC (RBC) [Mass/Vol] 33.6 g/dL Normal 32-36 [facility] Comment on above: Performed By: #### M 100.2200, L7000.1800 #### [facility] [address] [place], [address] MCV (RBC) [Entitic vol] 92.7 fL Normal 81-99 [facility] Comment on above: Performed By: #### M 100.2200, L7000.1800 #### [facility] [address] [place], [address] Monocytes/100 WBC (Bld) 6.0 % Normal 0-10 [facility] Comment on above: Performed By: #### M 100.2200, L7000.1800 #### [facility] [address] [place], [address] Neutrophils/100 WBC (Bld) 79.3 % High 47-70 [facility] Comment on above: Performed By: #### M 100.2200, L7000.1800 #### [facility] [address] [place], [address] Nucleated RBC (Bld) [#/Vol] 0 10*3/uL Normal 0-5 [facility] Comment on above: Performed By: #### M 100.2200, L7000.1800 #### [facility] [address] [place], [address] Platelet mean volume (Bld) [Entitic vol] 11.6 fL Normal 6.2-12.0 [facility] Comment on above: Performed By: #### M 100.2200, L7000.1800 #### [facility] [address] [place], [address] Platelets (Bld) [#/Vol] 191 10*3/uL Normal 150-450 [facility] Comment on above: Performed By: #### M 100.2200, L7000.1800 #### [facility] [address] [place], [address] RBC (Bld) [#/Vol] 4.11 10*6/uL Low 4.2-5.4 [facility] Comment on above: Performed By: #### M 100.2200, L7000.1800 #### [facility] [address] [place], [address] RDW SD 44.2 fl High 35.1-43.9 [facility] Comment on above: Performed By: #### M 100.2200, L7000.1800 #### [facility] [address] [place], [address] WBC (Bld) [#/Vol] 12.3 10*3/uL High 4.4-11.0 [facility] Comment on above: Performed By: #### M 100.2200, L7000.1800 #### [facility] [address] [place], [address] Glucose Challenge Gest 1H 50 ashley 02-05-2025 GLU GEST 50g 1H 95 mg/dL Normal 70-140 [facility] Comment on above: Performed By: #### M 100.2200, L7000.1800 #### [facility] [address] [place], [address] HIVon 02-05-2025 HIV Non-Reactive Normal Nonreactive [facility] Comment on above: Result Comment: Non- Reactive Reactive Repeatedly reactive samples must be confirmed according to CDC recommended confirmatory algorithms. The subresults for either HIVAG or AHIV can be used as an aid in the selection of the confirmation algorithm for reactive samples. Send out specimens with Reactive results to [facility] for confirmation. Order the HIV antibody detection and differentiation: lc#[id number] Performed By: #### M 100.2200, L7000.1800 #### [facility] [address] [place], [address] Dance Director Office Visit Reporton 02-05-2025 Dance Director Office Visit Report [facility] [address], [address] [place] [address] OFFICE VISIT Date of Service: 02/05/25 MR#: [id number] Acct: [id number] Name: PRISCILA NGO Rep #: [id number] : 1985 Provider: RASTA avendaño Age/Sex: 39/F Location: [facility] [place] Status: Signed Intake Vital Signs 11/20/24 14:23 01/13/25 09:03 02/05/25 13:01 Height 5 ft 5 in 5 ft 5 in 5 ft 5 in Weight: 160 lb BMI 26.6 BP 112/72 Intake Visit Reasons: 28wk3d ob/glucose/rhogam *SM csection Chief Complaint: 28 Week OB/glucose/rhogam Leach Cell Operator Required: No Is patient in pain?: No Allergies amoxicillin Adverse Reaction (Mild, Verified 02/05/25 13:03) Vomiting erythromycin base Adverse Reaction (Mild, Verified 02/05/25 13:03) Vomiting azithromycin Adverse Reaction (Verified 02/05/25 13:03) Vomiting Medications ???Medication ???Instructions ???Recorded ???Confirmed ???Type Saccharomyces boulardii 250 mg 250 mg PO ONCE 06/07/24 02/05/25 H istory capsule (Daily Probiotic (S. boulardii)) multivitamin no.47-iron fum 27 1 cap PO DAILY 06/07/24 02/05/25 H istory mg-folate no.1 1 mg-dha 300 mg capsule (PNV-DHA) albuterol sulfate 90 mcg/actuation 1 puff inhalation ONCE 09/06/24 02/05/25 History aerosol inhaler buspirone 5 mg tablet 5 mg PO TID 09/06/24 02/05/25 Hist ory pyridoxine (vitamin B6) 200 mg 200 mg PO BID 09/19/24 02/05/25 Hi story tablet cephalexin 500 mg capsule 500 mg PO Q12H 5 days #10 caps 09/0702/05/25 Rx meclizine 12.5 mg tablet 12.5 mg PO TID PRN motion sickness 11/20/24 02/05/25 Rx #90 tabs famotidine 20 mg tablet (Pepcid) 20 mg PO BID #60 tabs 12/18/24 Rx loratadine 10 mg capsule (Allergy 10 mg PO QDAY 02/05/25 02/05/25 H istory Relief (loratadine)) Last Menstrual Period: 07/21/24 Zika: Zika virus screening: Negative : No PFSH PFSH Medical History (Updated 02/05/25 @ 13:37 by Ana Cristina Roe ADMINISTRATIVE OFFICE SPECIALIST, ADMINISTRATIVE OFFICE SPECIALIST-C) Rh negative status during Acute sinusitis, unspecified SVT (supraventricular tachycardia) Surgical History Delivery by section History of wisdom tooth extraction, class II edentulism Family History Father auto immune disorder psoriatic arthritis. Cancer multiple tumors with mets, no definitive primary. 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: No pets and animals: Yes pets and animals: dog(s) history of recent travel: No sexually active: Yes Smoking Status: Never smoker alcohol intake: current details: Not while substance use type: does not use well-balanced diet: daily or most days caffeine: Yes Type: coffee eating out: rarely or never during the past year weight has: remained stable what type of physical activity do you participate in: walking frequency: 5-6 times per week duration: 45-60 minutes/day tish/rastafari: Anglican seatbelt use: always do you feel safe at home: Yes additional social history: : TrangTha Su History 3 Elective abortions Hx Para 2 Spontaneous abortions Hx # Term Pregnancies 2 Ectopic pregnancies Hx # Pregnancies Multiple births # of living children 2 Past Pregnancies Del. Date Name GA/Weeks Outcome Route Bth Weight Gen Labor Lgth Anesthesia Del Locatn Provider FOB 07/16/20 Meron 40 live - full term 7lbs 13oz Female epidural W [facility] Tiffany Trang 04/14/22 Maira 38 live - full term 8lbs 5oz Female spinal [facility] Sonya Menard Delivery Date: 07/16/20 Last Updated by: Sathya English arrest of descent Delivery Date: 04/14/22 Last Updated by: Federica Alexandra RLTCS SM 39 HPI 28wk3d ob/glucose/rhogam *SM csection Details: PRISCILA NGO is a 39 year old who presents for routine OB visit. OB Visit ALVAREZ Calculator Estimated Delivery Date Method Current WG Current Estimate 04/27/25 LMP (Certain) 28w 3d Expected Delivery Route/Plan R C/S with SM Specific Issue/Plans Covid status: [] Flu vaccine: [] Tdap vaccine: given 02/05/25 Rhogam: given 02/05/25 LARC form signed: yes Problem list reviewed and updated with the most current plan of care details and appropriate orders place (more content not included)... Normal [facility] Syphilis Antibodieson 2024 Syphilis Abs Non-Reactive Normal Nonreactive [facility] Comment on above: Performed By: #### M 100.2200, L7000.1800 #### [facility] [address] [place], [place], [id number] Type AND Screenon 02-05-2025 ABO and Rh group Nom (Bld) Blood group AB Rh(D) negative Normal [facility] Comment on above: Order Comment: PN Performed By: #### M 100.2200, L7000.1800 #### [facility] [address] [place], [address] Dance Director Office Visit Reporton 01-13-2025 Dance Director Office Visit Report [facility] [address], [address] [place] [address] OFFICE VISIT Date of Service: 01/13/25 MR#: [id number] Acct: [id number] Name: PRISCILA NGO Rep #: [id number] : 1985 Provider: Dr. Sonya valentino MD Age/Sex: 39/F Location: [facility] [place] Status: Signed Intake Vital Signs 11/20/24 13:29 11/20/24 14:23 12/18/24 09:08 01/13/25 08:56 01/13/25 09:03 Height 5 ft 5 in 5 ft 5 in 5 ft 5 in 5 ft 5 in 5 ft 5 in Weight: 155 lb 4 oz BMI 25.8 BP 130/74 H Intake Visit Reasons: 24 WK OB CSECTION/SM Leach Cell Operator Required: No Is patient in pain?: No Feel stressed/tense/nervous /anxious/difficulty sleeping: not at all Allergies amoxicillin Adverse Reaction (Mild, Verified 01/13/25 08:57) Vomiting erythromycin base Adverse Reaction (Mild, Verified 01/13/25 08:57) Vomiting azithromycin Adverse Reaction (Verified 01/13/25 08:57) Vomiting Medications ???Medication ???Instructions ???Recorded ???Confirmed ???Type Saccharomyces boulardii 250 mg 250 mg PO ONCE 06/07/24 01/13/25 H istory capsule (Daily Probiotic (S. boulardii)) multivitamin no.47-iron fum 27 1 cap PO DAILY 06/07/24 01/13/25 H istory mg-folate no.1 1 mg-dha 300 mg capsule (PNV-DHA) albuterol sulfate 90 mcg/actuation 1 puff inhalation ONCE 09/06/24 01/13/25 History aerosol inhaler buspirone 5 mg tablet 5 mg PO TID 09/06/24 01/13/25 Hist ory pyridoxine (vitamin B6) 200 mg 200 mg PO BID 09/19/24 01/13/25 Hi story tablet cephalexin 500 mg capsule 500 mg PO Q12H 5 days #10 caps 09/0701/13/25 Rx meclizine 12.5 mg tablet 12.5 mg PO TID PRN motion sickness 11/20/24 01/13/25 Rx #90 tabs famotidine 20 mg tablet (Pepcid) 20 mg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 list reviewed and updated with the most current plan of care details and appropriate orders placed. Relevant counseling for the gestational age provided. Continue routine care and follow up unless otherwise noted in visit notes/problem list details Initial Weight: 137 lb Date -???-???-???-???-???-? ??-???-???-???-???-??? -???- EGA Weight BP Urine Prot -???-???-???-???-???-? ??-???-???-???-???-??? -???- Glucose FHR FuHt Pres Dilation -???-???- (more content not included)... Normal [facility] [id number] 10-12-2024 ABO and Rh group Nom (Bld) Blood group AB Rh(D) negative Normal [facility] Comment on above: Order Comment: Comme nts: Age < 13 Weeks Performed By: #### M 100.2200, L7000.1800 #### [facility] [address] [place], [address] BRho(D) IGon 10-12-2024 Rho(D) IG Normal [facility] Comment on above: Result Comment: [id number] Rho(D) IG PRSMD TRFSD 10/12/24 1215 Performed By: #### M 100.2200, L7000.1800 #### [facility] [address] [facility] [place], [place], [address] Emergency Department Summary on 10-12-2024 Emergency Department Summary [facility] Medical Records Department [address] [place] [address] Emergency Department Summary 10/12/24 MR#: [id number] Acct: [id number] Name: PRISCILA NGO Rep #: [id number] : 1985 39 From: Clem Michael DO PCP: Dr. Marquis Salamanca MD Status:REG ER Location: ED HPI HPI - Female History of Present Illness Chief Complaint: Vag Bld, Preg Narrative Narrative: Patient is a G3, P2 currently 12 weeks who presented to the emergency department chief complaint of vaginal spotting. According the patient last night she got up in the [place] to use the restroom wiped and noted a small amount of pink-tinged. States that when she used the restroom this morning this happened again. Patient states that she had a appointment at 8 weeks had a ultrasound with a confirmed intrauterine . She states that she did receive RhoGAM in the past and she called the on-call line they advised her to come here for RhoGAM today. Patient otherwise has no complaints. Patient denies any trauma or intercourse. [facility] Medical History Rh negative status during Acute sinusitis, unspecified SVT (supraventricular tachycardia) Home Medications ???Medication ???Instructions ???Recorded ???Last Taken ???Type Saccharomyces boulardii 250 mg 250 mg PO ONCE 06/07/24 Unknown Hi story capsule (Daily Probiotic (S. boulardii)) multivitamin no.47-iron fum 27 1 cap PO DAILY 06/07/24 Unknown Hi story mg-folate no.1 1 mg-dha 300 mg capsule (PNV-DHA) albuterol sulfate 90 mcg/actuation 1 puff inhalation ONCE 09/06/24 Unknown History aerosol inhaler buspirone 5 mg tablet 5 mg PO TID 09/06/24 Unknown Histo ry meclizine 12.5 mg tablet 12.5 mg PO TID PRN motion sickness 09/09/24 Unknown Rx #90 tabs pyridoxine (vitamin B6) 200 mg 200 mg PO BID 09/19/24 Unknown His tory tablet cephalexin 500 mg capsule 500 mg PO Q12H 5 days #10 caps 09/07 Unknown Rx Allergy/AdvReac Type Severity Reaction Status Date / Time amoxicillin AdvReac Mild Vomiting Verified 10/12/24 09:29 erythromycin base AdvReac Mild Vomiting Verified 10/12/24 09:29 azithromycin AdvReac Vomiting Verified 10/12/24 09:29 Family History Father auto immune disorder psoriatic arthritis. Cancer multiple tumors with mets, no definitive primary. 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 current occupational exposures/hazards: No pets and animals: Yes pets and animals: dog(s) history of recent travel: No sexually active: Yes Smoking Status: Never smoker alcohol intake: current details: Not while substance use type: does not use well-balanced diet: daily or most days caffeine: Yes Type: coffee eating out: rarely or never during the past year weight has: remained stable what type of physical activity do you participate in: walking frequency: 5-6 times per week duration: 45-60 minutes/day tish/rastafari: Anglican seatbelt use: always do you feel safe at home: Yes additional social history: : Trang- [employer]er [employer] ROS Narrative Constitutional: Denies fevers, chills, headaches, lightness, Abdomen: Denies abdominal pain nausea vomit diarrhea : Complains of vaginal spotting as noted above denies painful urination, increased frequency of urinating Neurological: Denies numbness, weakness, tingling Musculoskeletal: Denies back pain Skin: Denies rashes or lesions EXAM Physical Exam Narrative Exam Narrative: General: Patient lying in bed rest comfortably did not appear to be acute distress Head: Atraumatic, normocephalic Eyes: PERRL bilaterally, EOMI bilateral, no conjunctival injection noted Neck: Soft, supple, trach Cardiovascular: Regular in rhythm Respiratory: Clear to auscultation bilaterally Abdomen: Soft, nondistended, tenderness palpation Skin: Warm, dry, tact no rashes or lesions noted Const Vital Signs: 10/12/24 09:28 10/12/24 11:28 Temperature 97.1 F L Temperature Source Temporal Pulse Rate 93 76 Respiratory Rate 14 18 Blood Pressure 112/68 123/87 H Blood Pressure Mean 82 99 Pulse Ox 98 Oxygen Delivery Method Josefina (more content not included)... Normal [facility] Urinalysis, Completeon 10-12 BACTERIA 2+ /hpf Normal None Seen [facility] Comment on above: Order Comment: MONICA CTOR TO SPECIFY Performed By: #### L 400.0001 #### [facility] [address] [place], [address] EPI,SQUAMOUS 0-5 SEEN Normal 5-10 [facility] Comment on above: Order Comment: MONICA CTOR TO SPECIFY Performed By: #### L 400.0001 #### [facility] [address] [place], [address] RBC 5-10 SEEN Normal 0-5 [facility] Comment on above: Order Comment: COLLE CTOR TO SPECIFY Performed By: #### L 400.0001 #### [facility] [address] [place], [address] WBC 5-10 SEEN Normal 0-5 [facility] Comment on above: Order Comment: MONICA CTOR TO SPECIFY Performed By: #### L 400.0001 #### [facility] [address] [place], [address] Mucus Ql (Urine sed) 0 SEEN Normal [facility] Comment on above: Order Comment: COLLE CTOR TO SPECIFY Performed By: #### L 400.0001 #### [facility] [address] [place], [address] MR/BMS.BPon 09-26-2024 MR/BMS.BP [address], [address] [place] [address] OFFICE VISIT Date of Service: 09/26/24 MR#: [id number] Acct: [id number] Name: NGOPRISCILA DAVISKRISSY Rep #: [id number] : 1985 Provider: [facility] Kate smart Age/Sex: 39/F Location: [facility] Status: Signed Intake Vital Signs 06/11/24 08:40 09/19/24 08:41 09/26/24 17:41 Height 5 ft 5 in 5 ft 5 in 5 ft 5 in BP Intake Visit Reasons: Follow up Allergies amoxicillin Adverse Reaction (Mild, Verified 09/19/24 08:53) Vomiting erythromycin base Adverse Reaction (Mild, Verified 09/19/24 08:53) Vomiting azithromycin Adverse Reaction (Verified 09/19/24 08:53) Vomiting PFSH Medical History Rh negative status during Acute sinusitis, unspecified SVT (supraventricular tachycardia) Surgical History Delivery by section History of wisdom tooth extraction, class II edentulism Family History Father auto immune disorder psoriatic arthritis. Cancer multiple tumors with mets, no definitive primary. 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: No pets and animals: Yes pets and animals: dog(s) history of recent travel: No sexually active: Yes Smoking Status: Never smoker alcohol intake: current details: Not while substance use type: does not use well-balanced diet: daily or most days caffeine: Yes Type: coffee eating out: rarely or never during the past year weight has: remained stable what type of physical activity do you participate in: walking frequency: 5-6 times per week duration: 45-60 minutes/day tish/rastafari: Anglican seatbelt use: always do you feel safe at home: Yes additional social history: : Stephen Su HPI History of Present Illness HPI: Priscila Ngo is a 39 year-old female returning for therapy. She denied any recent panic attacks. Priscila reported one incident of anxiety and rumination that she managed through self-talk and giving self the option for a designated worry time to contain the worry. Use of these skills were effective stopping her rumination, reducing her anxiety, and allowing her to participate in family activities. Priscila did not end up needing to utilize her designated worry time later. She discussed recent work stressor where she was able to implement worst case scenario and problem solve how she would manage worst case scenario, which was reinforced. Assisted in also applying best and most realistic scenarios and looking for silver lining of worst case scenario. Priscila created a hierarchy list for delivery to work on exposure. Worked on avoiding confusing possibility with likelihood. Progress shown both in reduction of frequency and intensity of anxious symptoms but also in implementing effective coping skills. No SI. Future-oriented. Exam Mental Status Exam - Psych Appearance well kempt Attitude cooperative, calm, engaged, pleasant and friendly Activity/Motor Behavior MSE activity/motor behavior finding no adventitious movements and appropriate eye contact Speech regular rate, regular volume and regular prosody Mood anxious Affect full range Thought Process linear, logical, coherent and goal directed Thought Content no delusions, no hallucinations and ruminations (related to worries about giving ) Suicidal Ideation none Homicidal Ideation none Attention impaired (Per pt. report) Concentration impaired (Per pt. report) Sensorium/Orientation awake, alert and oriented x3 Memory/Cognition intact Insight good Judgement good Assessment Plan Assessment Plan (1) Anxiety: Plan: BH therapy using CBT, DBT, and ACT interventions to address thought patterns contributing to anxious symptoms and to teach coping skills. Psychiatric services to monitor anxious symptoms and medication effectiveness. Plan TREATMENT PLAN Goal 1 - Learn and implement coping skills that result in a reduction of anxiety and worry, and improved daily functioning. Objective 1 - Learn and implement a strategy to delay worry until a designated worry time. Intervention 1 - Explain the rational for using a worry time as well as how it is to be used; agree upon and implement a worry time with the pt. Intervention 2 - Teach pt (more content not included)... Normal [facility] Chlamydia/GC SOFIA aptimaon CHLAMY,NUC ACID Negative Normal Negative [facility] Comment on above: Performed By: #### M 100.2200, L7000.1800 #### [facility] [address] [place], [address] GC BY NUC ACID Negative Normal Negative [facility] Comment on above: Result Comment: Perf ormed at: =G - [facility] [address] [id number] Lipcoat Sprayer: Kimberly Campbell MD, Phone: [phone] Performed By: #### M 100.2200, L7000.1800 #### [facility] [address] [place], [address] Urine Cultureon 09-22-2024 URC Mixed Gram Positive Organisms [place] Count <1000 MIXC Mixed contaminants. Submit a new specimen if indicated. Normal [facility] Comment on above: Performed By: #### M 100.2200, L7000.1800 #### [facility] [address] [place], [address] CBC W/Diff, Automatedon Absolute Lymph 1.19 X10 3/uL Normal 0.83-4.51 [facility] Comment on above: Performed By: #### L 3890.6300, L7400.0280, L7000.1800, L509.8000, L509.4005, L100.0100, L3890.6100, L3890.6005, BTS #### [facility] [address] [place], [address] Absolute Neut 6.4 X10 3/uL Normal 2.0-7.7 [facility] Comment on above: Performed By: #### L 3890.6300, L7400.0280, L7000.1800, L509.8000, L509.4005, L100.0100, L3890.6100, L3890.6005, BTS #### [facility] [address] [place], [address] Basophils/100 WBC (Bld) 0.4 % Normal 0-1 [facility] Comment on above: Performed By: #### L 3890.6300, L7400.0280, L7000.1800, L509.8000, L509.4005, L100.0100, L3890.6100, L3890.6005, BTS #### [facility] [address] [place], [address] Eosinophils/100 WBC (Bld) 0.5 % Normal 0-5 [facility] Comment on above: Performed By: #### L 3890.6300, L7400.0280, L7000.1800, L509.8000, L509.4005, L100.0100, L3890.6100, L3890.6005, BTS #### [facility] [address] [place], [address] (108) Erythrocyte distribution width (RBC) [Ratio] 12.3 % Normal 11.6-14.6 [facility] Comment on above: Performed By: #### L 3890.6300, L7400.0280, L7000.1800, L509.8000, L509.4005, L100.0100, L3890.6100, L3890.6005, BTS #### [facility] [address] [place], [address] (616) Hematocrit (Bld) [Volume fraction] 39.2 % Normal 37-47 [facility] Comment on above: Performed By: #### L 3890.6300, L7400.0280, L7000.1800, L509.8000, L509.4005, L100.0100, L3890.6100, L3890.6005, BTS #### [facility] [address] [place], [address] (903) Hemoglobin (Bld) [Mass/Vol] 13.6 g/dL Normal 12.0-15.0 [facility] Comment on above: Performed By: #### L 3890.6300, L7400.0280, L7000.1800, L509.8000, L509.4005, L100.0100, L3890.6100, L3890.6005, BTS #### [facility] [address] [place], [address] IG% 0.500 Normal 0.0-0.9 [facility] Comment on above: Result Comment: IG% - Immature Granulocytes (promyelocytes, myelocytes and metamyelocytes) > 1% indicates that a LEFT SHIFT is Present. Performed By: #### L 3890.6300, L7400.0280, L7000.1800, L509.8000, L509.4005, L100.0100, L3890.6100, L3890.6005, BTS #### [facility] [address] [place], [address] Lymphocytes/100 WBC (Bld) 14.9 % Low 19-41 [facility] Comment on above: Performed By: #### L 3890.6300, L7400.0280, L7000.1800, L509.8000, L509.4005, L100.0100, L3890.6100, L3890.6005, BTS #### [facility] [address] [place], [address] MCH (RBC) [Entitic mass] 31.1 pg Normal 27.0-32.0 [facility] Comment on above: Performed By: #### L 3890.6300, L7400.0280, L7000.1800, L509.8000, L509.4005, L100.0100, L3890.6100, L3890.6005, BTS #### [facility] [address] [place], [address] MCHC (RBC) [Mass/Vol] 34.7 g/dL Normal 32-36 [facility] Comment on above: Performed By: #### L 3890.6300, L7400.0280, L7000.1800, L509.8000, L509.4005, L100.0100, L3890.6100, L3890.6005, BTS #### [facility] [address] [place], [address] MCV (RBC) [Entitic vol] 89.5 fL Normal 81-99 [facility] Comment on above: Performed By: #### L 3890.6300, L7400.0280, L7000.1800, L509.8000, L509.4005, L100.0100, L3890.6100, L3890.6005, BTS #### [facility] [address] [place], [address] Monocytes/100 WBC (Bld) 4.0 % Normal 0-10 [facility] Comment on above: Performed By: #### L 3890.6300, L7400.0280, L7000.1800, L509.8000, L509.4005, L100.0100, L3890.6100, L3890.6005, BTS #### [facility] [address] [place], [address] Neutrophils/100 WBC (Bld) 79.7 % High 47-70 [facility] Comment on above: Performed By: #### L 3890.6300, L7400.0280, L7000.1800, L509.8000, L509.4005, L100.0100, L3890.6100, L3890.6005, BTS #### [facility] [address], [address] Nucleated RBC (Bld) [#/Vol] 0 10*3/uL Normal 0-5 [facility] Comment on above: Performed By: #### L 3890.6300, L7400.0280, L7000.1800, L509.8000, L509.4005, L100.0100, L3890.6100, L3890.6005, BTS #### [facility] [address] [place], [address] Platelet mean volume (Bld) [Entitic vol] 11.2 fL Normal 6.2-12.0 [facility] Comment on above: Performed By: #### L 3890.6300, L7400.0280, L7000.1800, L509.8000, L509.4005, L100.0100, L3890.6100, L3890.6005, BTS #### [facility] [address] [place], [address] Platelets (Bld) [#/Vol] 228 10*3/uL Normal 150-450 [facility] Comment on above: Performed By: #### L 3890.6300, L7400.0280, L7000.1800, L509.8000, L509.4005, L100.0100, L3890.6100, L3890.6005, BTS #### [facility] [address] [place], [address] RBC (Bld) [#/Vol] 4.38 10*6/uL Normal 4.2-5.4 [facility] Comment on above: Performed By: #### L 3890.6300, L7400.0280, L7000.1800, L509.8000, L509.4005, L100.0100, L3890.6100, L3890.6005, BTS #### [facility] [address] [place], [address] RDW SD 39.8 fl Normal 35.1-43.9 [facility] Comment on above: Performed By: #### L 3890.6300, L7400.0280, L7000.1800, L509.8000, L509.4005, L100.0100, L3890.6100, L3890.6005, BTS #### [facility] [address] [place], [address] WBC (Bld) [#/Vol] 8.0 10*3/uL Normal 4.4-11.0 [facility] Comment on above: Performed By: #### L 3890.6300, L7400.0280, L7000.1800, L509.8000, L509.4005, L100.0100, L3890.6100, L3890.6005, BTS #### [facility] [address] [place], [place], [id number] Chlamydia/GC SOFIA aptimaon CHLAMY,NUC ACID Normal [facility] Comment on above: Result Comment: DUPL ICATE Performed By: #### L 3890.6300, L7400.0280, L7000.1800, L509.8000, L509.4005, L100.0100, L3890.6100, L3890.6005, BTS ####[facility] [address] [place], [place], [id number] GC BY NUC ACID Normal [facility] Comment on above: Result Comment: DUPL ICATE Performed By: #### L 3890.6300, L7400.0280, L7000.1800, L509.8000, L509.4005, L100.0100, L3890.6100, L3890.6005, BTS ####[facility] [address] [place], [address] HIV - WCHon 09-19-2024 HIV Non-Reactive [facility] Comment on above: Order Comment: Reaso n for Exam: Performed By: #### L 3890.6300, L7400.0280, L7000.1800, L509.8000, L509.4005, L100.0100, L3890.6100, L3890.6005, BTS ####[facility] [address] [place], [address] Hepatitis B Surface Antigeno n 09-19-2024 HEP B Surf Ag Non-Reactive Normal Nonreactive [facility] Comment on above: Order Comment: Reaso n for Exam: Performed By: #### L 3890.6300, L7400.0280, L7000.1800, L509.8000, L509.4005, L100.0100, L3890.6100, L3890.6005, BTS ####[facility] [address] [place], [place], [address] Hepatitis C Antibodyon 09-19 Hepatitis C AB Non-Reactive Normal Nonreactive [facility] Comment on above: Order Comment: Reaso n for Exam: Result Comment: Non Reactive: < 0.8 Equivocal: >/= 0.8 to < 1.0 Reactive: >/= 1.0 The [facility] requires that a reactive/equivocal HCV antibody result be sent out for confirmation. HCV Quant by PCR testing. Performed By: #### L 3890.6300, L7400.0280, L7000.1800, L509.8000, L509.4005, L100.0100, L3890.6100, L3890.6005, BTS ####[facility] [address] [place], [address] L509.8000on 09-19-2024 Syphilis Abs Non-Reactive Normal [facility] Comment on above: Order Comment: Reaso n for Exam: Performed By: #### L 3890.6300, L7400.0280, L7000.1800, L509.8000, L509.4005, L100.0100, L3890.6100, L3890.6005, BTS #### [facility] [address] [place], [place], [address] Dance Director Office Visit Reporton 09-19-2024 Dance Director Office Visit Report [facility] [address], [address] [place] [address] OFFICE VISIT Date of Service: 09/19/24 MR#: [id number] Acct: [id number] Name: PRISCILA NGO Rep #: [id number] : 1985 Provider: ALHAJI Farrar ams Age/Sex: 39/F Location: [facility] [place] Status: Signed Intake Vital Signs 06/11/24 08:40 09/09/24 06:50 09/19/24 08:41 Height 5 ft 5 in 5 ft 5 in 5 ft 5 in Weight: 137 lb 2 oz BMI 22.8 BP 134/75 H Intake Visit Reasons: NOB LMP 07/21 Chief Complaint: New OB Is patient in pain?: No Allergies amoxicillin Adverse Reaction (Mild, Verified 09/19/24 08:53) Vomiting erythromycin base Adverse Reaction (Mild, Verified 09/19/24 08:53) Vomiting azithromycin Adverse Reaction (Verified 09/19/24 08:53) Vomiting Medications ???Medication ???Instructions ???Recorded ???Confirmed ???Type Saccharomyces boulardii 250 mg 250 mg PO ONCE 06/07/24 09/19/24 H istory capsule (Daily Probiotic (S. boulardii)) multivitamin no.47-iron fum 27 1 cap PO DAILY 06/07/24 09/19/24 H istory mg-folate no.1 1 mg-dha 300 mg capsule (PNV-DHA) albuterol sulfate 90 mcg/actuation 1 puff inhalation ONCE 09/06/24 09/19/24 History aerosol inhaler buspirone 5 mg tablet 5 mg PO TID 09/06/24 09/19/24 Hist ory meclizine 12.5 mg tablet 12.5 mg PO TID PRN motion sickness 09/09/24 09/19/24 Rx #90 tabs pyridoxine (vitamin B6) 200 mg 200 mg PO BID 09/19/24 09/19/24 Hi story tablet Last Menstrual Period: 07/21/24 : No PFSH PFSH Medical History Rh negative status during Acute sinusitis, unspecified SVT (supraventricular tachycardia) Surgical History Delivery by section History of wisdom tooth extraction, class II edentulism Family History Father auto immune disorder psoriatic arthritis. Cancer multiple tumors with mets, no definitive primary. 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: No pets and animals: Yes pets and animals: dog(s) history of recent travel: No sexually active: Yes Smoking Status: Never smoker alcohol intake: current details: Not while substance use type: does not use well-balanced diet: daily or most days caffeine: Yes Type: coffee eating out: rarely or never during the past year weight has: remained stable what type of physical activity do you participate in: walking frequency: 5-6 times per week duration: 45-60 minutes/day tish/rastafari: Anglican seatbelt use: always do you feel safe at home: Yes additional social history: : Trang- History 3 Elective abortions Hx Para 2 Spontaneous abortions Hx # Term Pregnancies 2 Ectopic pregnancies Hx # Pregnancies Multiple births # of living children 2 Past Pregnancies Del. Date Name GA/Weeks Outcome Route Bth Weight Infant Gen Labor Lgth Anesthesia Del Locatn Provider FOB 07/16/20 Meron 40 live - full term 7lbs 13oz Female epidural [facility] Tiffany Trang 04/14/22 Maira 38 live - full term 8lbs 5oz Female spinal [facility] Sonya Menard Delivery Date: 07/16/20 Last Updated by: Sathya English arrest of descent Delivery Date: 04/14/22 Last Updated by: Federica Alexandra [facility] 39 HPI NOB LMP 07/21 Details: PRISCILA NGO is a 39 year old who presents for New OB visit. OB Visit ALVAREZ Calculator Estimated Delivery Date Method Current WG Current Estimate 04/27/25 LMP (Certain) 8w 4d Estimated Due Date: 04/27/25 Expected Delivery Route/Plan R C/S with Specific Issue/Plans Covid status: [] Flu vaccine: [] Tdap vaccine: [] Rhogam: [] LARC form signed: [] Problem list reviewed and updated with the most current plan of care details and appropriate orders placed. Relevant counseling for the gestational age provided. Continue routine care and follow up unless otherwise noted in visit notes/problem list details Initial Weight: 137 lb Date -???-???-???-???-???-? ??-???-???-???-???-??? -???- EGA Weight BP Urine Prot -???-???-???-???-???-? ??-???-???-???-???-??? -???- Glucose FHR FuHt Pres Dilation -???-???-???-???-???-? (more content not included)... Normal [facility] PAP IG HPV APTIMA 16/18,45on 09-19-2024 DIAG Normal [facility] Comment on above: Order Comment: Clini dwight Info: Collection Vial: Thin Prep VialGYN Source: CERVICALDate LMP/Menopause: LMPCollection Techniques: CX BROOM ONLY Result Comment: NOT COLLECTED PER SATHYA IN OFFICE Performed By: #### L 3890.6300, L7400.0280, L7000.1800, L509.8000, L509.4005, L100.0100, L3890.6100, L3890.6005, BTS ####[facility] [address] [place], [place], [id number] HPV Vannessa Rfx Normal [facility] Comment on above: Order Comment: Clini dwight Info: Collection Vial: Thin Prep VialGYN Source: CERVICALDate LMP/Menopause: LMPCollection Techniques: CX BROOM ONLY Result Comment: NOT COLLECTED PER SATHYA IN OFFICE Performed By: #### L 3890.6300, L7400.0280, L7000.1800, L509.8000, L509.4005, L100.0100, L3890.6100, L3890.6005, BTS ####[facility] [address] [place], [place], [id number] Rubella IgGon 09-19-2024 Rubella IgG Reactive Normal Nonreactive [facility] Comment on above: Order Comment: Reaso n for Exam: Result Comment: Anti body Results Interpretation of Immune Status Non Reactive Presumed Non-Immune Equivocal Equivocal Reactive Presumed Immune Performed By: #### L 3890.6300, L7400.0280, L7000.1800, L509.8000, L509.4005, L100.0100, L3890.6100, L3890.6005, BTS #### [facility] [address] [place], [address] Type AND Screenon 09-19-2024 ABO and Rh group Nom (Bld) Blood group AB Rh(D) negative Normal [facility] Comment on above: Order Comment: PN Performed By: #### L 3890.6300, L7400.0280, L7000.1800, L509.8000, L509.4005, L100.0100, L3890.6100, L3890.6005, BTS #### [facility] [address] [place], [place], [id number] MR/BMS.BPon 09-16-2024 MR/BMS.[address], [address] [place] [address] OFFICE VISIT Date of Service: 09/10/24 MR#: [id number] Acct: [id number] Name: DYLANPRISCILA PRICE Rep #: [id number] : 1985 [facility] Age/Sex: 39/F Location: [facility] [place].[facility] Status: Signed Intake Vital Signs 06/11/24 08:40 09/16/24 12:10 Height 5 ft 5 in 5 ft 5 in BP Intake Visit Reasons: follow up Allergies amoxicillin Adverse Reaction (Mild, Verified 09/06/24 11:03) Vomiting erythromycin base Adverse Reaction (Mild, Verified 09/06/24 11:03) Vomiting azithromycin Adverse Reaction (Verified 09/06/24 11:03) Vomiting [facility] Medical History (Updated 09/14/24 @ 07:14 by Kate Larson [facility]) Rh negative status during Acute sinusitis, unspecified SVT (supraventricular tachycardia) Surgical History (Updated 09/06/24 @ 11:39 by Helen Ha RN) Delivery by section History of wisdom tooth extraction, class II edentulism Family History Father auto immune disorder psoriatic arthritis. Cancer multiple tumors with mets, no definitive primary. 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 occupation: [employer] current occupational exposures/hazards: No pets and animals: Yes pets and animals: dog(s) history of recent travel: No sexually active: Yes Smoking Status: Never smoker alcohol intake: current details: Not while substance use type: does not use well-balanced diet: daily or most days caffeine: Yes Type: coffee eating out: rarely or never during the past year weight has: remained stable what type of physical activity do you participate in: walking frequency: 5-6 times per week duration: 45-60 minutes/day tish/rastafari: Anglican seatbelt use: always do you feel safe at home: Yes additional social history: : Stephen Su HPI History of Present Illness HPI: Priscila is a 39 year-old female returning for therapy. She denied any panic attacks since last session. Priscila identified frequent worry that her nausea patterns could mean something negative for baby she is expecting. She has had this worry in previous pregnancies. Priscila also identified much worry about delivery including having an epidural. Encouraged verbalization of emotions while providing support. Addressed recent worries using CBT interventions. Discussed parts of the delivery worrisome for Priscila. Gave assignment and form for Priscila to create a hierarchy of fears for exposure work. Discussed designating a specific worry time to contain worry providing psychoeducation on this skill. No reports of SI. Future-oriented. Exam Mental Status Exam - Psych Appearance casually dressed and well kempt Attitude cooperative and engaged Activity/Motor Behavior MSE activity/motor behavior finding no adventitious movements and appropriate eye contact Speech regular rate, regular volume and regular prosody Mood anxious Affect anxious Thought Process linear, logical and coherent Thought Content no delusions, no hallucinations and ruminations (related to and delivery) Suicidal Ideation none Homicidal Ideation none Attention impaired (Per pt. report) Concentration impaired (Per pt. report) Sensorium/Orientation alert and oriented x3 Memory/Cognition intact Insight good Judgement good Assessment Plan Assessment Plan (1) Anxiety: Plan: BH therapy using CBT, DBT, and ACT interventions to address thought patterns contributing to anxious symptoms and to teach coping skills. Psychiatric services to monitor anxious symptoms and medication effectiveness. Visit Details Duration of visit (minutes): 60 Duration of counseling (minutes): 60 Total time (minutes): 60 Type of visit: psychotherapy and teyp-ey-npay Coding [place] [address] PSYTX W PT 60 MINUTES Patient Type Established Diagnoses Anxiety F41.9 Time Spent (min) 60 09/16/24 1210 Date Kate Larson [facility] Cosigner Signature: Date (if applicable) CC: Normal [facility] MR/BMS.BPon 09-09-2024 [place] [address] OFFICE VISIT Date of Service: 09/05/24 MR#: [id number] Acct: [id number] Name: PRISCILA NGO Rep #: [id number] : 1985 Provider: ANGELES smart Age/Sex: 39/F Location: [facility] [place].BP Status: Signed Intake Vital Signs 06/11/24 08:40 09/09/24 06:50 Height 5 ft 5 in 5 ft 5 in Weight: 138 lb 2 oz BMI 22.9 BP 110/70 BP Intake Visit Reasons: Establish care Allergies amoxicillin Adverse Reaction (Mild, Verified 09/06/24 11:03) Vomiting erythromycin base Adverse Reaction (Mild, Verified 09/06/24 11:03) Vomiting azithromycin Adverse Reaction (Verified 09/06/24 11:03) Vomiting [facility] Medical History (Updated 09/14/24 @ 07:14 by Kate Larson [facility]) Rh negative status during Acute sinusitis, unspecified SVT (supraventricular tachycardia) Surgical History (Updated 09/06/24 @ 11:39 by Helen Ha RN) Delivery by section History of wisdom tooth extraction, class II edentulism Family History Father auto immune disorder psoriatic arthritis. Cancer multiple tumors with mets, no definitive primary. 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: No pets and animals: Yes pets and animals: dog(s) history of recent travel: No sexually active: Yes Smoking Status: Never smoker alcohol intake: current details: Not while substance use type: does not use well-balanced diet: daily or most days caffeine: Yes Type: coffee eating out: rarely or never during the past year weight has: remained stable what type of physical activity do you participate in: walking frequency: 5-6 times per week duration: 45-60 minutes/day tish/rastafari: Anglican seatbelt use: always do you feel safe at home: Yes additional social history: : Stephen Su HPI History of Present Illness History provided by: patient HPI: Priscila Ngo is a 39 year-old female who participated in a diagnostic assessment to begin therapy. She previously participated in therapy with this therapist in 2023 at [facility]. She has not participated in any other counseling. In 2023, Priscila was having panic attacks that began after her father's and seemed triggered about worry related to children's health. She was able to resolve this and recently did well despite one child having bad pneumonia and the other having Covid. Both incidents resulted in Priscila taking them to the hospital. She identified seeking counseling again due to panic symptoms. Her 3 best friends are currently , and Priscila and her were contemplating having a 3rd child. She recently found out she is and is experiencing anxiety about having a 3rd child as is her . Priscila reports chest tightness, heart palpitations, dizziness, and increased blood pressure when she experiences panic. Her OB-AGRICULTURAL PRODUCTION ENGINEER prescribed Buspirone 5mg 2x daily, which managed symptoms for 2-3 weeks. She also began taking an all natural calming supplement. Priscila is utilizing breathing techniques. Her PCP recently increased her Buspirone dose to 3x daily and prescribed Hydroxyzine 10 or 20mg for break through anxiety. She is struggling to remember to take all doses due to her varied work schedule. Priscila identifies becoming easily frustrated and having a short fuse. Sleep - Some sleep problems. 99% of sleep is normal. Has times of racing thoughts where sleep is off. This last occurred around [place]. Interests - Able to enjoy interests. Enjoyed the holidays. Energy - Overall good. Reports increased tiredness, which she attributes to . Guilt - Denies guilt, hopelessness, or worthlessness. Concentration - Organized scatterbrain. Reports going from task to task, procrastinating, and having to redirect herself to focus. Appetite - fine; Has been throwing up the past couple weeks, which occurs when she is . Psychomotor -WNL Suicide - Denies any past or present SI. Denies any suicide attempts. Memory - No problems; mom brain. Depression - Reports times where she gets down about her and her having different perspectives. Will have the thought how do we get through this. Anxiety - Feels increased anxiety when she forgets to take her medication. Rates her anxiety (more content not included)... Normal [facility] Glucoseon 07-30-2024 Glucose [Mass/Vol] 100 mg/dL Normal 74-106 [facility] Comment on above: Order Comment: Order Date: 07/30/24Order Info: [id number] - LIPID Result Comment: Fast ing Glucose result from 100 to 125 mg/dL suggests IMPAIRED HOMEOSTASIS per A.D.A. criteria. Performed By: #### L 501.0100 ####[facility] [address] [place], [address] Lipid Profileon 07-30-2024 Cholesterol [Mass/Vol] 174 mg/dL Normal [facility] Comment on above: Order Comment: Order Date: 07/30/24Order Info: [id number] - LIPID Result Comment: <200 mg/dL Desirable 200-240 mg/dL Borderline >240 mg/dL High Risk Performed By: #### L 500.4100 ####[facility] [address] [place], [address] Cholesterol in HDL [Mass/Vol] 69 mg/dL Normal [facility] Comment on above: Order Comment: Order Date: 07/30/24Order Info: [id number] - LIPID Result Comment: The drugs N-Acetylcysteine and Metamizole may falsely depress this assay. Reference Range HDL <40 mg/dL Low HDL Cholesterol HDL >or= 60 mg/dL High HDL Cholesterol Performed By: #### L 500.4100 ####[facility] [address] [place], [address] Cholesterol in LDL [Mass/Vol] 95 mg/dL Normal 0-130 [facility] Comment on above: Order Comment: Order Date: 07/30/24Order Info: [id number] - LIPID Performed By: #### L 500.4100 ####[facility] [address] [place], [address] Cholesterol in VLDL [Mass/Vol] 10 mg/dL Normal 5-40 [facility] Comment on above: Order Comment: Order Date: 07/30/24Order Info: [id number] - LIPID Performed By: #### L 500.4100 ####[facility] [address] [place], [address] Triglyceride [Mass/Vol] 51 mg/dL Normal [facility] Comment on above: Order Comment: Order Date: 07/30/24Order Info: [id number] - LIPID Result Comment: The drugs N-Acetylcysteine and Metamizole may falsely depress this assay. Serum Triglycerides Reference Interval Normal <150 mg/dL Borderline high 150 - 199 mg/dL High 200 - 499 mg/dL Very High > or = 500 mg/dL Performed By: #### L 500.4100 ####[facility] [address] [place], [address] PAP IG HPV APTIMA 16/18,45on 06-15-2024 ADEQ Comment Normal . [facility] Comment on above: Order Comment: Speci men Comment: [id number] Comment: No. of containers..01 ThinPrep Vial Result Comment: Sati sfactory for evaluation. Endocervical and/or squamous metaplastic cells (endocervical component) are present. Performed By: #### L 7400.0280 ####[facility] [address] [place], [address] COMM . Normal . [facility] Comment on above: Order Comment: Speci men Comment: [id number] Comment: No. of containers..01 ThinPrep Vial Performed By: #### L 7400.0280 ####[facility] [address] [place], [address] COMMENT Comment Normal . [facility] Comment on above: Order Comment: Speci men Comment: [id number] Comment: No. of containers..01 ThinPrep Vial Result Comment: This liquid based ThinPrep(R) pap test was screened with the use of an image guided system. Performed By: #### L 7400.0280 ####[facility] [address] [place], [address] DIAG Comment Normal . [facility] Comment on above: Order Comment: Speci men Comment: [id number] Comment: No. of containers..01 ThinPrep Vial Result Comment: NEGA TIVE FOR INTRAEPITHELIAL LESION OR MALIGNANCY. Performed By: #### L 7400.0280 ####[facility] [address] [place], [address] HPV APTIMA, HR Negative Normal Negative [facility] Comment on above: Order Comment: Speci men Comment: [id number] Comment: No. of containers..01 ThinPrep Vial Result Comment: This nucleic acid amplification test detects fourteen high- risk HPV types (16,18,31,33,35,39,45,51,52,56,58,59,66,68) without differentiation. Performed By: #### L 7400.0280 ####[facility] [address] [place], [address] HPV Vannessa Rfx Comment Normal . [facility] Comment on above: Order Comment: Speci men Comment: [id number] Comment: No. of containers..01 ThinPrep Vial Result Comment: Crit eria not met, HPV Genotype not performed. Performed at: [address] [id number] Lipcoat Sprayer: Kimberly Campbell MD, Phone: [phone] Performed at: = - [address] [id number] Lipcoat Sprayer: Kimberly Campbell MD, Phone: [phone] Performed By: #### L 7400.0280 ####[facility] [address] [place], [address] PAPSMR Comment Normal . [facility] [facility] Comment on above: Order Comment: Speci men Comment: [id number] Comment: No. of containers..01 ThinPrep Vial Result Comment: The Pap smear is a screening test designed to aid in the detection of premalignant and malignant conditions of the uterine cervix. It is not a diagnostic procedure and should not be used as the sole means of detecting cervical cancer. Both false-positive and false-negative reports do occur. Performed By: #### L 7400.0280 ####[facility] [address] [place], [place], [id number] PERFORM Comment Normal . [facility] Comment on above: Order Comment: Speci men Comment: [id number] Comment: No. of containers..01 ThinPrep Vial Result Comment: Erika Mccarthy, Clothespin Drier Operator (ASCP) Performed By: #### L 7400.0280 ####[facility] [id number] [place], [address] Dance Director Office Visit Reporton 06-11-2024 Dance Director Office Visit Report [facility]'s [address], [address] [place] [address] OFFICE VISIT Date of Service: 06/11/24 MR#: [id number] Acct: [id number] Name: PRISCILA NGO Rep #: [id number] : 1985 Provider: RASTA avendaño Age/Sex: 39/F Location: [facility] [place] Status: Signed Intake Vital Signs 06/07/24 09:19 06/11/24 08:40 Height 5 ft 5 in 5 ft 5 in Weight: 138 lb 2 oz BMI 22.9 BP 130/87 H 110/70 Intake Visit Reasons: IUD REMOVAL Chief Complaint: IUD removal Leach Cell Operator Required: No Is patient in pain?: No Allergies amoxicillin Adverse Reaction (Mild, Verified 06/11/24 08:44) Vomiting erythromycin base Adverse Reaction (Mild, Verified 06/11/24 08:44) Vomiting azithromycin Adverse Reaction (Verified 06/11/24 08:44) Vomiting Medications ???Medication ???Instructions ???Recorded ???Confirmed ???Type Saccharomyces boulardii 250 mg 250 mg PO ONCE 06/07/24 06/11/24 History capsule (Daily Probiotic (S. boulardii)) buspirone 5 mg tablet 5 mg PO BID #60 tabs 06/07/24 06/11/24 Rx docusate sodium 100 mg capsule 100 mg PO QDAY 06/07/24 06/11/24 History (Colace) multivitamin no.47-iron fum 27 1 cap PO DAILY 06/07/24 06/11/24 History mg-folate no.1 1 mg-dha 300 mg capsule (PNV-DHA) Is last menstrual period known: No Post menopausal: No Patient : No : No PFSH Medical History (Updated 06/11/24 @ 08:57 by Ana Cristina Roe ADMINISTRATIVE OFFICE SPECIALIST, ADMINISTRATIVE OFFICE SPECIALIST-C) Laryngitis Acute otitis media, right Acute sinusitis, unspecified delivery delivered SVT (supraventricular tachycardia) Rh negative status during Surgical History Delivery by section History of wisdom tooth extraction, class II edentulism Family History (Updated 06/07/24 @ 09:31 by Ana Cristina Cid) Father auto immune disorder psoriatic arthritis. Cancer multiple tumors with mets, no definitive primary. Possibly melanoma Heart disease AFIB Mother Diabetes Grandmother Kidney disease Aunt Heart disease Breast cancer, Onset Age: 70 Social History (Updated 06/07/24 @ 09:30 by Ana Cristina Cid) adopted: No household members: spouse and children number of children: 2 current occupational status: employed Smoking Status: Never smoker alcohol intake: current details: pre- substance use type: does not use caffeine: Yes what type of physical activity do you participate in: walking frequency: 3-4 times per week seatbelt use: always do you feel safe at home: Yes additional social history: Trang- Roll Examiner Patient Munguiaalejandra Marley Financial planning HPI IUD REMOVAL Details: PRISCILA NGO is a 39 year old who presents for IUD removal to attempt History 2 Elective abortions Hx Para 2 Spontaneous abortions Hx # Term Pregnancies 2 Ectopic pregnancies Hx # Pregnancies Multiple births # of living children 2 Past Pregnancies Del. Date Name GA/Weeks Outcome Route Bth Weight Infant Gen Labor Lgth Anesthesia Del Locatn Provider FOB 07/16/20 Meron 40 live - full term Female epidural [facility] Tiffany 04/14/22 Maira 38 live - full term 8lbs 5oz Female spinal [facility] Sonya Menard Delivery Date: 07/16/20 Last Updated by: Sathya English arrest of descent Delivery Date: 04/14/22 Last Updated by: Federica Alexandra RLTCS SM 39 ROS Const Constitutional: Reports system reviewed and no additional complaints, except as documented Eyes Eyes: Reports system reviewed and no additional complaints, except as documented GI GI: Denies abdominal pain or change in bowel habits : Reports as per HPI Exam Const General: cooperative and no acute distress Orientation: oriented x3 External Female Exam: normal external appearance and normal appearance of the urethra Urethra: normal appearance of the urethra Speculum Exam - Vagina: normal appearance of the vagina, normal vaginal discharge, no lesions and nontender Speculum Exam - Cervix: normal appearance of the cervix Office Procedures IUD Removal IUD Removal Details: Sign out documentation: Completed Procedure: Speculum placed in vagina, IUD string visualized and grasped with ring forceps. IUD easily removed in its entirety and patient tolerated well. Coding Level of Care Code Attention Fire Sprinkler Fitter Diagnoses Encounter for IUD removal Z30.432 Assessment and Plan Assessment and Plan (1) Encounter for IUD removal: Orders: Orders IUD Removal Today Z30.432 - Encounter for removal of intrauterine contraceptive device Plan condoms until ready to conceive start vitamin Call with first positive test or in 6 m (more content not included)... Normal [facility] Dance Director Office Visit Reporton 06-07-2024 Dance Director Office Visit Report [facility] [address] [place] [address], [address] [place] [address] OFFICE VISIT Date of Service: 06/07/24 MR#: [id number] Acct: [id number] Name: PRISCILA NGO Rep #: [id number] : 1985 Provider: Dr. Sonya valentino MD Age/Sex: 39/F Location: [facility] [place] Status: Signed Intake Vital Signs 05/29/23 14:57 06/07/24 09:17 06/07/24 09:19 Height 5 ft 5 in 5 ft 5 in 5 ft 5 in Weight: 137 lb BMI 22.8 BP 138/83 H 130/87 H Intake Visit Reasons: Annual (AGRICULTURAL PRODUCTION ENGINEER) Leach Cell Operator Required: No Is patient in pain?: No Feel stressed/tense/nervous /anxious/difficulty sleeping: to some extent (a lot of increased anxiety - anniversary of fathers ) Allergies amoxicillin Adverse Reaction (Mild, Verified 12/06/23 07:00) Vomiting erythromycin base Adverse Reaction (Mild, Verified 12/06/23 07:00) Vomiting azithromycin Adverse Reaction (Verified 12/06/23 07:00) Vomiting Medications ???Medication ???Instructions ???Recorded ???Confirmed ???Type Saccharomyces boulardii 250 mg 250 mg PO ONCE 06/07/24 06/07/24 History capsule (Daily Probiotic (S. boulardii)) buspirone 5 mg tablet 5 mg PO BID #60 tabs 06/07/24 06/07/24 Rx docusate sodium 100 mg capsule 100 mg PO QDAY 06/07/24 06/07/24 History (Colace) multivitamin no.47-iron fum 27 1 cap PO DAILY 06/07/24 06/07/24 History mg-folate no.1 1 mg-dha 300 mg capsule (PNV-DHA) Is last menstrual period known: Yes Last Menstrual Period: 04/15/24 Post menopausal: No Patient : No : No [facility] Medical History Acute otitis media, right Acute sinusitis, unspecified delivery delivered Laryngitis Rh negative status during SVT (supraventricular tachycardia) Urinary tract infection with hematuria Surgical History Delivery by section History of wisdom tooth extraction, class II edentulism Family History (Updated 06/07/24 @ 09:31 by Ana Cristina Cid) Father auto immune disorder psoriatic arthritis. Cancer multiple tumors with mets, no definitive primary. 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 Last PAP: 07/29/2019 - normal History of abnormal PAP: Last mammogram: History of abnormal mammogram: Colon cancer screening: Other preventative health care screenings: PCP Dr. Salamanca - labs done last year, will be going for physical in June Female Reproductive History Last Menstrual Period: 04/15/24 Cycle Length: 21-35 Bleeding Duration: 5 Questions: metorrhagia: No, sexually active: Yes, dyspareunia: No and PCB: No Menopausal Symptoms: No hot flashes, No night sweats, No weight change, No mood changes, No difficulty concentrating, No sleep problems and No change in libido ROS Const Constitutional: Reports as per HPI; Denies fatigue, increased appetite, poor appetite, night sweats, weight gain or weight loss Cardio Card: Denies chest pain Resp Resp: Denies cough or dyspnea GI GI: Reports as per HPI; Denies abdominal pain, bloating, constipation, nausea or vomiting : Reports as per HPI and other; Denies difficulty voiding, dysuria, hematuria, hot flashes, nipple discharge, pelvic pain, prolapse symptoms, urinary frequency, urinary incontinence, urinary urgency, vaginal discharge, vaginal (more content not included)... Normal [facility] Absolute lymphocyte countOrd ered By: Alisia Foster on 07-05-2023 Lymphocytes Auto (Unsp spec) [#/Vol] 1.71 10*3/uL 0.83-4.51 [facility] Basophil percentageOrdered B y: Alisia Foster on 07-05-2023 Basophils/100 WBC (Bld) 0.5 % 0-1 [facility] Bilirubin [Mass/Vol] 0.70 mg/dL 0.20-1.00 [facility] Comment on above: For patients on eltr ombopag therapy, use of Dimension [place] TBIL is not recommended. Chloride [Moles/Vol] 104 mmol/L 98-107 [facility] Eosinophils/100 WBC (Bld) 0.7 % 0-5 [facility] Glucose [Mass/Vol] 69 mg/dL 74-106 [facility] Neutrophils (Bld) [#/Vol] 4.0 10*3/uL 2.0-7.7 [facility] Neutrophils/100 WBC (Bld) 64.4 % 47-70 [facility] Potassium [Moles/Vol] 3.7 mmol/L 3.5-5.1 [facility] Protein [Mass/Vol] 7.1 g/dL 6.4-8.2 [facility] Sodium [Moles/Vol] 139 mmol/L 136-145 [facility] WBC (Bld) [#/Vol] 6.1 10*3/uL 4.4-11.0 [facility] Blood erythrocytes count (nu mber/volume)Ordered By: Alisia Foster on 07-05-2023 RBC (Bld) [#/Vol] 4.71 10*6/uL 4.2-5.4 [facility] Blood hemoglobin measurement (mass/volume)Ordered By: Alisia Foster on 07-05-2023 Hemoglobin (Bld) [Mass/Vol] 14.3 g/dL 12.0-15.0 [facility] Blood lymphocytes/100 leukoc ytesOrdered By: Alisia Foster on 07-05-2023 Lymphocytes/100 WBC (Bld) 27.9 % 19-41 [facility] Blood monocytes/100 leukocyt esOrdered By: Alisia Foster on 07-05-2023 Monocytes/100 WBC (Bld) 6.2 % 0-10 [facility] Blood platelet mean volumeOr dered By: Alisia Foster on 07-05-2023 Platelet mean volume (Bld) [Entitic vol] 11.7 fL 6.2-12.0 [facility] Determination of erythrocyte mean corpuscular volume (MCV)Ordered By: Alisia Foster on 07-05-2023 MCV (RBC) [Entitic vol] 89.6 fL 81-99 [facility] Hematocrit Auto (Bld) [Volum e fraction]Ordered By: Alisia Foster on 07-05-2023 Hematocrit (Bld) [Volume fraction] 42.2 % 37-47 [facility] Laboratory - Chemistry and C hemistry - challengeOrdered By: Alisia Foster on 07-05-2023 ALP [Catalytic activity/Vol] 59 U/L 45-117 [facility] ALT [Catalytic activity/Vol] 35 U/L 13-56 [facility] CO2 [Moles/Vol] 28.0 mmol/L 21.0-32.0 [facility] Globulin (S) [Mass/Vol] 2.9 g/dL 2.2-4.2 [facility] Magnesium [Mass/Vol] 2.1 mg/dL 1.6-2.6 [facility] Urea nitrogen/Creatinine [Mass ratio] 15.4 mg/mg 10-20 [facility] Laboratory - Hematology and Cell countsOrdered By: Alisia Foster on 07-05-2023 Erythrocyte distribution width (RBC) [Entitic vol] 38.3 fL 35.1-43.9 [facility] Erythrocyte distribution width (RBC) [Ratio] 11.9 % 11.6-14.6 [facility] Immature granulocytes/100 WBC (Bld) 0.300 % 0.0-0.9 [facility] Comment on above: IG% - Immature Granu locytes (promyelocytes, myelocytes and metamyelocytes) > 1% indicates that a LEFT SHIFT is Present. MCH (RBC) [Entitic mass] 30.4 pg 27.0-32.0 [facility] Nucleated RBC/100 WBC (Bld) [Ratio] 0 % 0-5 [facility] MCHC Auto (RBC) [Mass/Vol]Or dered By: Alisia Foster on 07-05-2023 MCHC (RBC) [Mass/Vol] 33.9 g/dL 32-36 [facility] No Panel InformationOrdered By: Alisia Foster on 07-05-2023 Estimated GFR (MDRD) Amer 118 mL/min >60 [facility] Comment on above: GFR Calc Estimated GFR (MDRD) Non-Af Amer 98 mL/min >60 [facility] Comment on above: Non- GFR Calc Thyroid Stimulating Hormone (TSH) 1.42 uIU/mL 0.358-3.74 [facility] Platelets bldOrdered By: Patti Foster on 07-05-2023 Platelets (Bld) [#/Vol] 273 10*3/uL 150-450 [facility] Serum or plasma albumin sunshine urement (mass/volume)Ordered By: Alisia Foster on 07-05-2023 Albumin [Mass/Vol] 4.2 g/dL 3.2-5.0 [facility] Serum or plasma albumin/glob ulin mass ratioOrdered By: Alisia Foster on 07-05-2023 Albumin/Globulin [Mass ratio] 1.4 {ratio} 0.9-2.4 [facility] Serum or plasma calcium sunshine urement (mass/volume)Ordered By: Alisia Foster on 07-05-2023 Calcium [Mass/Vol] 8.2 mg/dL 8.5-10.1 [facility] Serum or plasma creatinine m easurement (mass/volume)Ordered By: Alisia Foster on 07-05-2023 Creatinine [Mass/Vol] 0.71 mg/dL 0.55-1.02 [facility] Comment on above: The validity of the calculated GFR & GFRAA in patients over 70 years has not been determined. Clinical correlation is essential. Serum or plasma urea nitroge n measurement (mass/volume)Ordered By: Alisia Foster on 07-05-2023 Urea nitrogen [Mass/Vol] 11 mg/dL 7-18 [facility] Thin prep Papanicolaou smear with manual screeningOrdered By: Alisia Foster on 07-05-2023 Thin prep Papanicolaou smear with manual screening 17 U/L 15-37 [facility] Thin prep Papanicolaou smear with manual screening 7 5-15 [facility] Whole blood hemoglobin A1c/t otal hemoglobin ratio (mass fraction)Ordered By: Alisia Foster on 07-05-2023 HbA1c (Bld) [Mass fraction] 5.0 % 3.8-5.6 [facility] Comment on above: Normal < 5.7 % Predi abetic 5.7 - 6.4 % Diabetic >or= 6.5 % Please note range changes. Basophil percentageOrdered B y: Porfirio Pizano on 02-20-2023 Basophil percentage 0-5 SEEN /hpf 0-5 [facility] Bilirubin Test strip Ql (U)O rdered By: Porfirio Pizano on 02-20-2023 Bilirubin Ql (U) Negative Negative [facility] Culture, urineOrdered By: St red Pizano on 02-20-2023 Bacteria identified Cx Nom (U) Streptococcus group A [facility] Ketones Test strip Ql (U)Ord ered By: Porfirio Pizano on 02-20-2023 Ketones Ql (U) Negative Negative [facility] Laboratory - Chemistry and C hemistry - challengeon 02-20-2023 HCG ( test) Ql (U) Negative [facility] Bilirubin Ql (U) Negative [facility] Glucose Ql (U) Negative [facility] Ketones Ql (U) Negative [facility] pH (U) 5.0 [pH] [facility] Specific gravity (U) [Rel density] 1.005 [facility] Urobilinogen (U) [Mass/Vol] 0.9353070 mg/dL [facility] Laboratory - Hematology and Cell countson 02-20-2023 Hemoglobin Ql (U) Hemolyzed [facility] Laboratory - Specimen inform ationon 02-20-2023 Clarity (U) Clear [facility] Color (U) Kemi [facility] Laboratory - Urinalysison Nitrite Ql (U) Negative [facility] Protein Ql (U) Negative [facility] Mucus LM Ql (Urine sed)Order ed By: Porfirio Pizano on 02-20-2023 Mucus Ql (Urine sed) 0 SEEN /hpf [facility] Nitrite Test strip Ql (U)Ord ered By: Porfirio Pizano on 02-20-2023 Nitrite Ql (U) Negative Negative [facility] No Panel Informationon 02-20 Urine Leukocytes Positive [facility] Urine Non-Hemolyzed Blood Large [facility] Protein Test strip Ql (U)Ord ered By: Porfirio Pizano on 02-20-2023 Protein Ql (U) Negative Negative [facility] Squamous epithelial cells de tection in urine sediment by light microscopyOrdered By: Porfirio Pizano on 02-20-2023 Epithelial cells.squamous LM Ql (Urine sed) 0 SEEN /hpf 5-10 [facility] Urine blood detectionOrdered By: Porfirio Pizano on 02-20-2023 RBC Ql (U) 150 /ul Negative [facility] RBC Ql (U) 0 SEEN /hpf 0-5 [facility] Urine clarityOrdered By: Gagan Pizano on 02-20-2023 Clarity (U) Clear Clear [facility] Urine color determinationOrd ered By: Porfirio Pizano on 02-20-2023 Color (U) Yellow Yellow [facility] Urine glucose detectionOrder ed By: Porfirio Pizano on 02-20-2023 Glucose Ql (U) Normal mg/dl Normal [facility] Urine leukocyte esterase det ection by dipstickOrdered By: Porfirio Pizano on 02-20-2023 Leukocyte esterase Test strip Ql (U) 500 /ul Negative [facility] Urine pHOrdered By: Porfirio marcelo on 02-20-2023 pH (U) 6.0 [pH] 5.0 - 8.0 [facility] Urine sediment bacteria coun t by microscopy (number/high power field)Ordered By: Porfirio Pizano on 02-20-2023 Bacteria LM.HPF (Urine sed) [#/Area] 0 /[HPF] None Seen [facility] Urine specific gravity measu rementOrdered By: Porfirio Pizano on 02-20-2023 Specific gravity (U) [Rel density] 1.005 1.002-1.030 [facility] Urobilinogen Auto test strip Ql (U)Ordered By: Porfirio Pizano on 02-20-2023 Urobilinogen Ql (U) Normal mg/dl Normal [facility] Absolute lymphocyte counton 05-26-2022 Lymphocytes Auto (Unsp spec) [#/Vol] 2.12 10*3/uL 0.83-4.51 [facility] Work Phone: Basophil percentageon 2021 Basophils/100 WBC (Bld) 0.6 % 0-1 [facility] Work Phone: Eosinophils/100 WBC (Bld) 0.9 % 0-5 [facility] Work Phone: Neutrophils (Bld) [#/Vol] 5.5 10*3/uL 2.0-7.7 [facility] Work Phone: Neutrophils/100 WBC (Bld) 66.8 % 47-70 [facility] Work Phone: WBC (Bld) [#/Vol] 8.2 10*3/uL 4.4-11.0 [facility] Work Phone: Blood erythrocytes count (nu mber/volume)on 05-26-2022 RBC (Bld) [#/Vol] 4.61 10*6/uL 4.2-5.4 [facility]: Blood hemoglobin measurement (mass/volume)on 05-26-2022 Hemoglobin (Bld) [Mass/Vol] 14.2 g/dL 12.0-15.0 [facility] Work Phone: Blood lymphocytes/100 leukoc yteson 05-26-2022 Lymphocytes/100 WBC (Bld) 25.9 % 19-41 [facility] Work Phone: Blood monocytes/100 leukocyt eson 05-26-2022 Monocytes/100 WBC (Bld) 5.4 % 0-10 [facility] Work Phone: Blood platelet mean volumeon 05-26-2022 Platelet mean volume (Bld) [Entitic vol] 10.6 fL 6.2-12.0 [facility] Work Phone: Determination of erythrocyte mean corpuscular volume (MCV)on 05-26-2022 MCV (RBC) [Entitic vol] 87.2 fL 81-99 [facility] Work Phone: Hematocrit Auto (Bld) [Volum e fraction]on 05-26-2022 Hematocrit (Bld) [Volume fraction] 40.2 % 37-47 [facility] Work Phone: Laboratory - Hematology and Cell countson 05-26-2022 Erythrocyte distribution width (RBC) [Entitic vol] 37.4 fL 35.1-43.9 [facility] Work Phone: Erythrocyte distribution width (RBC) [Ratio] 11.8 % 11.6-14.6 [facility] Work Phone: Immature granulocytes/100 WBC (Bld) 0.400 % 0.0-0.9 [facility] Work Phone: Comment on above: IG% - Immature Granu locytes (promyelocytes, myelocytes and metamyelocytes) > 1% indicates that a LEFT SHIFT is Present. MCH (RBC) [Entitic mass] 30.8 pg 27.0-32.0 [facility] Work Phone: Nucleated RBC/100 WBC (Bld) [Ratio] 0 % 0-5 [facility] Work Phone: MCHC Auto (RBC) [Mass/Vol]on 05-26-2022 MCHC (RBC) [Mass/Vol] 35.3 g/dL 32-36 [facility] Work Phone: Platelets bldon 05-26-2022 Platelets (Bld) [#/Vol] 235 10*3/uL 150-450 [facility] Work Phone: Laboratory - Chemistry and C hemistry - challengeon 04-26-2022 Bilirubin Ql (U) Negative [facility] Work Phone: Glucose Ql (U) Negative [facility] Work Phone: Ketones Ql (U) Negative [facility] Work Phone: pH (U) 5.0 [pH] [facility] Work Phone: Specific gravity (U) [Rel density] 1.015 [facility] Work Phone: Urobilinogen (U) [Mass/Vol] 1 mg/dL [facility] Work Phone: Laboratory - Hematology and Cell countson 04-26-2022 Hemoglobin Ql (U) Negative [facility] Work Phone: Laboratory - Specimen inform ationon 04-26-2022 Clarity (U) Clear [facility] Work Phone: Color (U) Yellow [facility] Work Phone: Laboratory - Urinalysison Nitrite Ql (U) Negative [facility] Work Phone: Protein Ql (U) Negative [facility] Work Phone: No Panel Informationon 04-26 Urine Leukocytes Negatve [facility] Work Phone: Basophil percentageon 2021 WBC (Bld) [#/Vol] 12.9 10*3/uL 4.4-11.0 [facility] Work Phone: Blood erythrocytes count (nu mber/volume)on 04-15-2022 RBC (Bld) [#/Vol] 3.26 10*6/uL 4.2-5.4 [facility] Work Phone: Blood hemoglobin measurement (mass/volume)on 04-15-2022 Hemoglobin (Bld) [Mass/Vol] 9.8 g/dL 12.0-15.0 [facility] Work Phone: Blood platelet mean volumeon 04-15-2022 Platelet mean volume (Bld) [Entitic vol] 12.0 fL 6.2-12.0 [facility] Work Phone: Determination of erythrocyte mean corpuscular volume (MCV)on 04-15-2022 MCV (RBC) [Entitic vol] 90.8 fL 81-99 [facility] Work Phone: Hematocrit Auto (Bld) [Volum e fraction]on 04-15-2022 Hematocrit (Bld) [Volume fraction] 29.6 % 37-47 [facility] Work Phone: Laboratory - Hematology and Cell countson 04-15-2022 Erythrocyte distribution width (RBC) [Entitic vol] 46.2 fL 35.1-43.9 [facility] Work Phone: Erythrocyte distribution width (RBC) [Ratio] 14.0 % 11.6-14.6 [facility] Work Phone: MCH (RBC) [Entitic mass] 30.1 pg 27.0-32.0 [facility] Work Phone: MCHC Auto (RBC) [Mass/Vol]on 04-15-2022 MCHC (RBC) [Mass/Vol] 33.1 g/dL 32-36 [facility] Work Phone: Platelets bldon 04-15-2022 Platelets (Bld) [#/Vol] 123 10*3/uL 150-450 [facility] Work Phone: Absolute lymphocyte counton 04-14-2022 Lymphocytes Auto (Unsp spec) [#/Vol] 1.56 10*3/uL 0.83-4.51 [facility] Work Phone: Basophil percentageon 2021 Basophils/100 WBC (Bld) 0.2 % 0-1 [facility] Work Phone: Eosinophils/100 WBC (Bld) 0.3 % 0-5 [facility] Work Phone: Neutrophils (Bld) [#/Vol] 7.3 10*3/uL 2.0-7.7 [facility] Work Phone: Neutrophils/100 WBC (Bld) 77.1 % 47-70 [facility] Work Phone: Blood lymphocytes/100 leukoc yteson 04-14-2022 Lymphocytes/100 WBC (Bld) 16.4 % 19-41 [facility] Work Phone: Blood monocytes/100 leukocyt eson 04-14-2022 Monocytes/100 WBC (Bld) 5.5 % 0-10 [facility] Work Phone: Laboratory - Hematology and Cell countson 04-14-2022 Immature granulocytes/100 WBC (Bld) 0.500 % 0.0-0.9 [facility] Work Phone: Comment on above: IG% - Immature Granu locytes (promyelocytes, myelocytes and metamyelocytes) > 1% indicates that a LEFT SHIFT is Present. Nucleated RBC/100 WBC (Bld) [Ratio] 0 % 0-5 [facility] Work Phone: Laboratory - Chemistry and C hemistry - challengeon 04-08-2022 Glucose Ql (U) Negative [facility] Work Phone: Laboratory - Urinalysison Protein Ql (U) Negative [facility] Work Phone: SARS coronavirus RNA [Presen ce] in Unspecified specimen by SOFIA with probe detectionon 04-08-2022 SARS-CoV RNA SOFIA+probe Ql (Unsp spec) Not detected Not Detected [facility] Work Phone: Comment on above: This nucleic acid am plification test was developed and itsperformance characteristics determined by [facility]. Nucleic acid amplification tests include RT-PCR and TMA. This test has not been FDA cleared orapproved. This test has been authorized by FDA under anEmergency Use Authorization (EUA). This test is onlyauthorized for the duration of time the declaration thatcircumstances exist justifying the authorization of theemergency use of in vitro diagnostic tests for detection afTDYK-FoR-8 virus and/or diagnosis of COVID-19 infectionunder section 564(b)(1) of the Act, 21 U.S.C. 360bbb-3(b)(1), unless the authorization is terminated or revokedsooner.When diagnostic testing is negative, the possibility of afalse negative result should be considered in the contextof a patient's recent exposures and the presence ofclinical signs and symptoms consistent with COVID-19. Anindividual without symptoms of COVID-19 and who is notshedding SARS-CoV-2 virus would expect to have a negative(not detected) result in this assay. Laboratory - Chemistry and C hemistry - challengeon 04-01-2022 Glucose Ql (U) Negative [facility] Work Phone: Laboratory - Urinalysison Protein Ql (U) Negative [facility] Work Phone: Laboratory - Chemistry and C hemistry - challengeon 03-25-2022 Glucose Ql (U) Negative [facility] Work Phone: Laboratory - Urinalysison Protein Ql (U) Negative [facility] Work Phone: Laboratory - Chemistry and C hemistry - challengeon 03-09-2022 Glucose Ql (U) Negative [facility] Work Phone: Laboratory - Urinalysison Protein Ql (U) Negative [facility] Work Phone: Laboratory - Chemistry and C hemistry - challengeon 02-25-2022 Glucose Ql (U) Negative [facility] Work Phone: Laboratory - Urinalysison Protein Ql (U) Negative [facility] Work Phone: Laboratory - Chemistry and C hemistry - challengeon 02-11-2022 Glucose Ql (U) Negative [facility] Work Phone: Laboratory - Urinalysison Protein Ql (U) Negative [facility] Work Phone: Gestational diabetes screen 1-hour screen with 50g oral glucose loadon 01-28-2022 Glucose 1 Hr post 50 g glucose PO [Mass/Vol] 91 mg/dL 70-140 [facility] Work Phone: Absolute lymphocyte counton 01-26-2022 Lymphocytes Auto (Unsp spec) [#/Vol] 1.57 10*3/uL 0.83-4.51 [facility] Work Phone: Basophil percentageon 2021 Basophils/100 WBC (Bld) 0.3 % 0-1 [facility] Work Phone: Eosinophils/100 WBC (Bld) 0.9 % 0-5 [facility] Work Phone: Neutrophils (Bld) [#/Vol] 8.0 10*3/uL 2.0-7.7 [facility] Work Phone: Neutrophils/100 WBC (Bld) 77.1 % 47-70 [facility] Work Phone: WBC (Bld) [#/Vol] 10.3 10*3/uL 4.4-11.0 [facility] Work Phone: Blood erythrocytes count (nu mber/volume)on 01-26-2022 RBC (Bld) [#/Vol] 3.69 10*6/uL 4.2-5.4 [facility] Work Phone: Blood hemoglobin measurement (mass/volume)on 01-26-2022 Hemoglobin (Bld) [Mass/Vol] 11.3 g/dL 12.0-15.0 [facility] Work Phone: Blood lymphocytes/100 leukoc yteson 01-26-2022 Lymphocytes/100 WBC (Bld) 15.2 % 19-41 [facility] Work Phone: Blood monocytes/100 leukocyt eson 01-26-2022 Monocytes/100 WBC (Bld) 5.6 % 0-10 [facility] Work Phone: Blood platelet mean volumeon 01-26-2022 Platelet mean volume (Bld) [Entitic vol] 11.2 fL 6.2-12.0 [facility] Work Phone: Determination of erythrocyte mean corpuscular volume (MCV)on 01-26-2022 MCV (RBC) [Entitic vol] 89.2 fL 81-99 [facility] Work Phone: Hematocrit Auto (Bld) [Volum e fraction]on 01-26-2022 Hematocrit (Bld) [Volume fraction] 32.9 % 37-47 [facility] Work Phone: Laboratory - Chemistry and C hemistry - challengeon 01-26-2022 Glucose Ql (U) Negative [facility] Work Phone: Laboratory - Hematology and Cell countson 01-26-2022 Erythrocyte distribution width (RBC) [Entitic vol] 40.2 fL 35.1-43.9 [facility] Work Phone: Erythrocyte distribution width (RBC) [Ratio] 12.4 % 11.6-14.6 [facility] Work Phone: Immature granulocytes/100 WBC (Bld) 0.900 % 0.0-0.9 [facility] Work Phone: Comment on above: IG% - Immature Granu locytes (promyelocytes, myelocytes and metamyelocytes) > 1% indicates that a LEFT SHIFT is Present. MCH (RBC) [Entitic mass] 30.6 pg 27.0-32.0 [facility] Work Phone: Nucleated RBC/100 WBC (Bld) [Ratio] 0 % 0-5 [facility] Work Phone: Laboratory - Urinalysison Protein Ql (U) Negative [facility] Work Phone: MCHC Auto (RBC) [Mass/Vol]on 01-26-2022 MCHC (RBC) [Mass/Vol] 34.3 g/dL 32-36 [facility] Work Phone: Platelets bldon 01-26-2022 Platelets (Bld) [#/Vol] 171 10*3/uL 150-450 [facility] Work Phone: Laboratory - Chemistry and C hemistry - challengeon 12-24-2021 Glucose Ql (U) Negative [facility] Work Phone: Laboratory - Urinalysison Protein Ql (U) Negative [facility] Work Phone: Laboratory - Chemistry and C hemistry - challengeon 11-26-2021 Glucose Ql (U) Negative [facility] Work Phone: Laboratory - Urinalysison Protein Ql (U) Negative [facility] Work Phone: Laboratory - Chemistry and C hemistry - challengeon 10-29-2021 Glucose Ql (U) Negative [facility] Work Phone: Laboratory - Urinalysison Protein Ql (U) Negative [facility] Work Phone: Culture, urineon 10-01-2021 Bacteria identified Cx Nom (U) Positive [facility] Work Phone: Laboratory - Drug toxicology on 10-01-2021 Amphetamines Ql (U) Negative <1000 ng/mL [facility] Work Phone: Benzodiazepines Ql (U) Negative < 200 ng/mL [facility] Work Phone: Cannabinoids Screen Ql (U) Negative < 50 ng/mL [facility] Work Phone: Cocaine Ql (U) Negative < 300 ng/mL [facility] Work Phone: Opiates Ql (U) Negative < 300 ng/mL [facility] Work Phone: No Panel Informationon 10-01 Urine Barbiturates Screen Negative < 200 ng/mL [facility] Work Phone: Urine Drug Screen Comment [facility] Work Phone: Comment on above: CONFIRMATORY TESTING FOR ALL POSITIVE URINE DRUG SCREENRESULTS WILL ONLY BE SENT OUT UPON PHYSICIAN ORDER. VISTA Urine Drug Screen methods provide only preliminaryanalytical test results. A more specific alternate chemicalmethod must be used in order to obtain a confirmedanalytical result. Gas chromatography/mass spectrometery(GC/MS) is the preferred confirmatory method. Clinicalconsideration and professional judgement should be appliedto any drug of abuse test result, particularly whenpreliminary positive results are used. URINE TCA TESTING MUST BE ORDERED SEPARATELY. USE TESTMNEMONIC: UTCA Urine Methadone Screen Negative < 300 ng/mL [facility] Work Phone: Urine Methamphetamine-MDMA Screen Negative < 500 ng/mL [facility] Work Phone: Urine phencyclidine (PCP) de tectionon 10-01-2021 Phencyclidine Ql (U) Negative < 25 ng/mL [facility] Work Phone: Absolute lymphocyte counton 09-16-2021 Lymphocytes Auto (Unsp spec) [#/Vol] 1.15 10*3/uL 0.83-4.51 [facility] Work Phone: Basophil percentageon 2021 Basophils/100 WBC (Bld) 0.2 % 0-1 [facility] Work Phone: Eosinophils/100 WBC (Bld) 0.3 % 0-5 [facility] Work Phone: Neutrophils (Bld) [#/Vol] 7.0 10*3/uL 2.0-7.7 [facility] Work Phone: Neutrophils/100 WBC (Bld) 81.1 % 47-70 [facility] Work Phone: WBC (Bld) [#/Vol] 8.7 10*3/uL 4.4-11.0 [facility] Work Phone: Blood erythrocytes count (nu mber/volume)on 09-16-2021 RBC (Bld) [#/Vol] 4.14 10*6/uL 4.2-5.4 [facility] Work Phone: Blood hemoglobin measurement (mass/volume)on 09-16-2021 Hemoglobin (Bld) [Mass/Vol] 13.2 g/dL 12.0-15.0 [facility] Work Phone: Blood lymphocytes/100 leukoc yteson 09-16-2021 Lymphocytes/100 WBC (Bld) 13.2 % 19-41 [facility] Work Phone: Blood monocytes/100 leukocyt eson 09-16-2021 Monocytes/100 WBC (Bld) 4.6 % 0-10 [facility] Work Phone: Blood platelet mean volumeon 09-16-2021 Platelet mean volume (Bld) [Entitic vol] 11.1 fL 6.2-12.0 [facility] Work Phone: Chlamydia trachomatis rRNA d etection by probe and target amplification methodon 09-16-2021 C. trachomatis rRNA SOFIA+probe Ql (Unsp spec) Negative Negative [facility] Work Phone: Culture, urineon 09-16-2021 Bacteria identified Cx Nom (U) Presumptive Lactobacillus sp. [facility] Work Phone: Determination of erythrocyte mean corpuscular volume (MCV)on 09-16-2021 MCV (RBC) [Entitic vol] 87.9 fL 81-99 [facility] Work Phone: HIV 1 and HIV-2 antibody ass ay with HIV-1 p24 antigen detectionon 09-16-2021 HIV 1+2 Ab+HIV1 p24 Ag IA Ql Non-Reactive Nonreactive [facility] Work Phone: Hematocrit Auto (Bld) [Volum e fraction]on 09-16-2021 Hematocrit (Bld) [Volume fraction] 36.4 % 37-47 [facility] Work Phone: Laboratory - Drug toxicology on 09-16-2021 Amphetamines Ql (U) Negative [facility] Work Phone: Benzodiazepines Ql (U) Negative [facility] Work Phone: Cannabinoids Screen Ql (U) Negative [facility] Work Phone: Cocaine Ql (U) Negative [facility] Work Phone: Opiates Ql (U) Positive [facility] Work Phone: Laboratory - Hematology and Cell countson 09-16-2021 Erythrocyte distribution width (RBC) [Entitic vol] 38.4 fL 35.1-43.9 [facility] Work Phone: Erythrocyte distribution width (RBC) [Ratio] 12.0 % 11.6-14.6 [facility] Work Phone: Immature granulocytes/100 WBC (Bld) 0.600 % 0.0-0.9 [facility] Work Phone: Comment on above: IG% - Immature Granu locytes (promyelocytes, myelocytes and metamyelocytes) > 1% indicates that a LEFT SHIFT is Present. MCH (RBC) [Entitic mass] 31.9 pg 27.0-32.0 [facility] Work Phone: Nucleated RBC/100 WBC (Bld) [Ratio] 0 % 0-5 [facility] Work Phone: Laboratory - Microbiology an d Antimicrobial susceptibilityon 09-16-2021 N. gonorrhoeae DNA SOFIA+probe Ql (Unsp spec) Negative Negative [facility] Work Phone: Comment on above: Performed at: =[address] [place] [id number] Director: Kimberly Campbell MD, Phone: [phone] MCHC Auto (RBC) [Mass/Vol]on 09-16-2021 MCHC (RBC) [Mass/Vol] 36.3 g/dL 32-36 [facility] Work Phone: No Panel Informationon 09-16 Urine Barbiturates Screen Negative [facility] Work Phone: Urine Drug Screen Comment [facility] Work Phone: Comment on above: CONFIRMATORY TESTING FOR ALL POSITIVE URINE DRUG SCREENRESULTS WILL ONLY BE SENT OUT UPON PHYSICIAN ORDER. VISTA Urine Drug Screen methods provide only preliminaryanalytical test results. A more specific alternate chemicalmethod must be used in order to obtain a confirmedanalytical result. Gas chromatography/mass spectrometery(GC/MS) is the preferred confirmatory method. Clinicalconsideration and professional judgement should be appliedto any drug of abuse test result, particularly whenpreliminary positive results are used. URINE TCA TESTING MUST BE ORDERED SEPARATELY. USE TESTMNEMONIC: UTCA Urine Methadone Screen Negative [facility] Work Phone: Urine Methamphetamine-MDMA Screen Negative [facility] Work Phone: Hepatitis B Surface Antigen Non-Reactive Nonreactive [facility] Work Phone: Hepatitis C Antibody Non-Reactive Nonreactive [facility] Work Phone: Comment on above: Non Reactive: < 0.8 Equivocal: >/= 0.8 to < 1.0 Reactive: >/= 1.0The CDC recommends that a reactive/equivocal HCV antibody result be followed up by the HCV Nucleic Acid Amplificationtest (127909) Rubella IgG Antibody Reactive Nonreactive [facility] Work Phone: Comment on above: Antibody Results Int erpretation of Immune Status Non Reactive Presumed Non-Immune Equivocal Equivocal Reactive Presumed Immune Platelets bldon 09-16-2021 Platelets (Bld) [#/Vol] 229 10*3/uL 150-450 [facility] Work Phone: Serum Treponema species anti body detectionon 09-16-2021 Treponema sp Ab Ql (S) Non-Reactive [facility] Work Phone: Urine phencyclidine (PCP) de tectionon 09-16-2021 Phencyclidine Ql (U) Negative [facility] Work Phone: Culture, urineon 09-09-2021 Bacteria identified Cx Nom (U) Positive [facility] Work Phone: Laboratory - Chemistry and C hemistry - challengeon 09-09-2021 Bilirubin Ql (U) Negative [facility] Work Phone: Glucose Ql (U) Negative [facility] Work Phone: Ketones Ql (U) Negative [facility] Work Phone: Specific gravity (U) [Rel density] 1.005 [facility] Work Phone: Urobilinogen (U) [Mass/Vol] Negative [facility] Work Phone: Laboratory - Hematology and Cell countson 09-09-2021 Hemoglobin Ql (U) Trace [facility] Work Phone: Laboratory - Specimen inform ationon 09-09-2021 Clarity (U) Hazy [facility] Work Phone: Color (U) Straw [facility] Work Phone: Laboratory - Urinalysison Nitrite Ql (U) Negative [facility] Work Phone: Protein Ql (U) Negative [facility] Work Phone: No Panel Informationon 09-09 Urine Leukocytes Positive [facility] Work Phone: Serum or plasma choriogonado tropin detectionon 09-09-2021 HCG ( test) Ql 892038 mIU/mL <4 [facility] Work Phone: Comment on above: hCG levels with Gest ational AgeGestational Age hCG mIU/mL (IU/L)0.2 - 1 week 5 - 501-2 weeks 50 - 5002-3 weeks 100 - 35060-8 weeks 500 - 495144-7 weeks 1000 - 297727-5 weeks 14266 - 100,0006-8 weeks 39196 - 200,0002-3 months 17395 - 100,000 Microbiology: Culture, Genit al Comprehensive 07-03-2017 CUV . Invalid Interpretation Code [facility] Microbiology: (P) Culture, G enital Comprehensive 07-02-2017 CUV . Invalid Interpretation Code [facility] Office Visit: Annualon 06-30 Documentation of current medications (procedure) Done Invalid Interpretation Code [facility] Fall risk assessment No Invalid Interpretation Code [facility] Tobacco smoking status NHIS Never Invalid Interpretation Code [facility] Tobacco use CPHS Never smoker Invalid Interpretation Code [facility] URINE MENDY CULTURE-IDENTIFICA [place] ([id number])Ordered By: Development Administrator on 12-13-2016 Bacteria identified Cx Nom (U) Escherichia coli Abnormal [facility] Work Phone: Comment on above: Greater than 100,000 colony forming units per mL PATIENT NOT FASTINGP ERFORMED BY: HARLEEN [facility] [id number] [facility] [id number] Information: SRC:FLASH Bacteria identified Cx Nom (U) Final report Abnormal [facility] Work Phone: Comment on above: PATIENT NOT FASTINGP ERFORMED BY: [facility] [id number] [facility] [id number] Information: SRC:UC Other Antibiotic [Susc] MIHEAD Normal [facility] Work Phone: Comment on above: S = Susceptible; I = Intermediate; R = Resistant P = Positive; N = Negative MICS are expressed in micrograms per mL Antibiotic RSLT#1 RSLT#2 RSLT#3 RSLT#4Amoxicillin/Clavulanic Acid SAmpicillin SCefepime SCeftriaxone SCefuroxime SCephalothin SCiprofloxacin SErtapenem SGentamicin SImipenem SLevofloxacin SNitrofurantoin SPiperacillin STetracycline STobramycin STrimethoprim/Sulfa S PATIENT NOT FASTINGP ERFORMED BY: HARLEEN [facility] [id number] [address] [facility] [id number] Information: SRC:FLASH Urinalysis, Office ([id number])on 12-13-2016 Bilirubin Ql (U) Negative Normal Comprehe [...] Cyto stain Normal Invalid Interpretation Code [facility] MENDY CULTURE-OTHER ([id number])Ord ered By: Development Administrator on 03-11-2016 Bacteria identified Respiratory culture Nom (Unsp spec) Final report Normal [facility] Work Phone: Comment on above: PATIENT NOT FASTINGP ERFORMED BY: HARLEEN [facility] [id number] [address] RoadDublin [place] [id number] Information: SRC:ROSALBA [id number] Bacteria identified Respiratory culture Nom (Unsp spec) RRF Normal [facility] Work Phone: Comment on above: Routine respiratory beverly PATIENT NOT FASTINGP ERFORMED BY: CB [facility] [id number] Mauro RoadDublin [place] [id number] Information: SRC:THRT [id number] HEPATIC FUNCTION PANEL ([id number])Ordered By: Development Administrator on 01-05-2016 Albumin [Mass/Vol] 4.7 g/dL Normal 3.5-5.5 [facility] Work Phone: Comment on above: 1 month; PATIENT NOT FASTINGPERFORMED BY: CB [facility] [id number] [address] RoadDublin [place] [id number] Information: [id number] ALP [Catalytic activity/Vol] 39 [iU]/L Normal 39-117 [facility] Work Phone: Comment on above: 1 month; PATIENT NOT FASTINGPERFORMED BY: CB [facility] [id number] [address] RoadDublin [place] [id number] Information: [id number] ALP [Catalytic activity/Vol] 39 U/L Normal 39-117 [facility]; [facility] Work Phone: Comment on above: 1 month; PATIENT NOT FASTINGPERFORMED BY: CB [facility] [id number] [address] RoadDublin [place] [id number] Information: [id number] ALT [Catalytic activity/Vol] 19 [iU]/L Normal 0-32 [facility] Work Phone: Comment on above: 1 month; PATIENT NOT FASTINGPERFORMED BY: CB [facility] [id number] [address] RoadDublin [place] [id number] Information: [id number] ALT [Catalytic activity/Vol] 19 U/L Normal 0-32 [facility]; [facility] Work Phone: Comment on above: 1 month; PATIENT NOT FASTINGPERFORMED BY: CB [facility] [id number] [address] [facility] [place] [id number] Information: [id number] AST [Catalytic activity/Vol] 19 [iU]/L Normal 0-40 [facility] Work Phone: Comment on above: 1 month; PATIENT NOT FASTINGPERFORMED BY: CB [facility] [id number] [address] RoadNovant Health Forsyth Medical Centerin [place] [id number] Information: [id number] AST [Catalytic activity/Vol] 19 U/L Normal 0-40 [facility]; [facility] Work Phone: Comment on above: 1 month; PATIENT NOT FASTINGPERFORMED BY: CB [facility] [id number] [facility] [id number] Information: [id number] Bilirubin [Mass/Vol] 0.7 mg/dL Normal 0.0-1.2 [facility] Work Phone: Comment on above: 1 month; PATIENT NOT FASTINGPERFORMED BY: CB [facility] [id number] [address] [facility] [place] [id number] Information: [id number] Bilirubin.direct [Mass/Vol] 0.20 mg/dL Normal 0.00-0.40 [facility] Work Phone: Comment on above: 1 month; PATIENT NOT FASTINGPERFORMED BY: CB [facility] Ajkjzl2429 Mauro [facility]in [place] [id number] Information: [id number] Protein [Mass/Vol] 6.6 g/dL Normal 6.0-8.5 [facility] Internal Medicine Work Phone: Comment on above: 1 month; PATIENT NOT FASTINGPERFORMED BY: CB [facility] Rwlneb4034 Mauro RoadNovant Health Forsyth Medical Centerin [place] [id number] Information: [id number] CBC WITH MANUAL DIFF (08558) Ordered By: Development Administrator on 12-04-2015 Basophils (Bld) [#/Vol] 0.0 {x10E3/uL} Normal 0.0-0.2 [facility] Work Phone: Comment on above: PATIENT WAS FASTINGP ERFORMED BY: [address] [id number] Information: [id number] Basophils (Bld) [#/Vol] 0.0 10*3/uL Normal 0.0-0.2 [facility]; [facility] Work Phone: Comment on above: PATIENT WAS FASTINGP ERFORMED BY: [address] [id number] Information: 769045,[id number] Basophils/100 WBC (Bld) 0 % Normal [facility] Work Phone: Comment on above: PATIENT WAS FASTINGP ERFORMED BY: [address] [id number] Information: 618131,[id number] Eosinophils (Bld) [#/Vol] 0.1 {x10E3/uL} Normal 0.0-0.4 [facility] Work Phone: Comment on above: PATIENT WAS FASTINGP ERFORMED BY: [address] [id number] Information: 900986,Y46853 Eosinophils (Bld) [#/Vol] 0.1 10*3/uL Normal 0.0-0.4 [facility]; [facility] Work Phone: Comment on above: PATIENT WAS FASTINGP ERFORMED BY: [address] [id number] Information: 007152,L89698 Eosinophils/100 WBC (Bld) 2 % Normal [facility] Work Phone: Comment on above: PATIENT WAS FASTINGP ERFORMED BY: [address] Garcia StreetDublin [place] [id number] Information: 384090,F55396 Erythrocyte distribution width (RBC) [Ratio] 13.3 % Normal 12.3-15.4 [facility] Work Phone: Comment on above: PATIENT WAS FASTINGP ERFORMED BY: [address] [id number] Information: 123519,C00831 Hematocrit (Bld) [Volume fraction] 41.6 % Normal 34.0-46.6 [facility] Work Phone: Comment on above: PATIENT WAS FASTINGP ERFORMED BY: [address] [id number] Information: 647901,S28392 Hemoglobin (Bld) [Mass/Vol] 14.6 g/dL Normal 11.1-15.9 [facility] Work Phone: Comment on above: PATIENT WAS FASTINGP ERFORMED BY: [address] [id number] Information: 151578,[id number] Immature granulocytes (Bld) [#/Vol] 0.0 {x10E3/uL} Normal 0.0-0.1 [facility] Work Phone: Comment on above: PATIENT WAS FASTINGP ERFORMED BY: [place] [id number] [facility] [id number] Information: 056507,[id number] Immature granulocytes (Bld) [#/Vol] 0.0 10*3/uL Normal 0.0-0.1 [facility]; [facility] Work Phone: Comment on above: PATIENT WAS FASTINGP ERFORMED BY: [address] [id number] Information: [id number],[id number] Immature granulocytes/100 WBC (Bld) 0 % Normal [facility] Work Phone: Comment on above: PATIENT WAS FASTINGP ERFORMED BY: [place] [id number] [facility] [id number] Information: 538494,X91100 Lymphocytes (Bld) [#/Vol] 1.4 {x10E3/uL} Normal 0.7-3.1 [facility] Work Phone: Comment on above: PATIENT WAS FASTINGP ERFORMED BY: [address] [id number] Information: 865282,[id number] Lymphocytes (Bld) [#/Vol] 1.4 10*3/uL Normal 0.7-3.1 [facility]; [facility] Work Phone: Comment on above: PATIENT WAS FASTINGP ERFORMED BY: [address] [id number] Information: 937622,C21375 Lymphocytes/100 WBC (Bld) 25 % Normal [facility] Work Phone: Comment on above: PATIENT WAS FASTINGP ERFORMED BY: [address] [id number] Information: 929772,Q31491 MCH (RBC) [Entitic mass] 31.2 pg Normal 26.6-33.0 [facility] Internal Medicine Work Phone: Comment on above: PATIENT WAS FASTINGP ERFORMED BY: [address] [id number] Information: 511126,[id number] MCHC (RBC) [Mass/Vol] 35.1 g/dL Normal 31.5-35.7 [facility] Internal Medicine Work Phone: Comment on above: PATIENT WAS FASTINGP ERFORMED BY: [address] [id number] Information: [id number],[id number] MCV (RBC) [Entitic vol] 89 fL Normal 79-97 [facility] Work Phone: Comment on above: PATIENT WAS FASTINGP ERFORMED BY: [address]ublin [place] [id number] Information: 322322,G55306 Monocytes (Bld) [#/Vol] 0.2 {x10E3/uL} Normal 0.1-0.9 [facility] Work Phone: Comment on above: PATIENT WAS FASTINGP ERFORMED BY: [facility] Spttaa[address] [id number] Information: 759621,Q59721 Monocytes (Bld) [#/Vol] 0.2 10*3/uL Normal 0.1-0.9 [facility]; [facility] Work Phone: Comment on above: PATIENT WAS FASTINGP ERFORMED BY: HARLEEN Dayday Faqudi27[address] [id number] Information: 332407,[id number] Monocytes/100 WBC (Bld) 4 % Normal [facility] Work Phone: Comment on above: PATIENT WAS FASTINGP ERFORMED BY: HARLEEN [facility] Ynhcou9[address] [id number] Information: 950136,V93030 Neutrophils (Bld) [#/Vol] 3.8 {x10E3/uL} Normal 1.4-7.0 [facility] Work Phone: Comment on above: PATIENT WAS FASTINGP ERFORMED BY: HARLEEN [facility] Wlagol2792 [facility] [id number] Information: 358898,G18457 Neutrophils (Bld) [#/Vol] 3.8 10*3/uL Normal 1.4-7.0 [facility]; [facility] Work Phone: Comment on above: PATIENT WAS FASTINGP ERFORMED BY: HARLEEN [facility] Qgcbss0434 [facility] [id number] Information: 374217,R40013 Neutrophils/100 WBC (Bld) 69 % Normal [facility] Work Phone: Comment on above: PATIENT WAS FASTINGP ERFORMED BY: CB [facility]6370 [facility] [id number] Information: 147577,Q57349 Platelets (Bld) [#/Vol] 227 {x10E3/uL} Normal 150-379 [facility] Work Phone: Comment on above: PATIENT WAS FASTINGP ERFORMED BY: Dayday Sszvfu3581 [facility] [id number] Information: 649481,S37276 Platelets (Bld) [#/Vol] 227 10*3/uL Normal 150-379 [facility] Internal Medicine; [facility] Internal Medicine Work Phone: Comment on above: PATIENT WAS FASTINGP ERFORMED BY: Dayday Kdmgls[address] [id number] Information: 004722,[id number] RBC (Bld) [#/Vol] 4.68 {x10E6/uL} Normal 3.77-5.28 [facility] Internal Medicine Work Phone: Comment on above: PATIENT WAS FASTINGP ERFORMED BY: HARLEEN [facility] Lvowvo9369 [facility] [id number] Information: 074887,[id number] RBC (Bld) [#/Vol] 4.68 10*6/uL Normal 3.77-5.28 [facility] Internal Medicine; [facility] Internal Medicine Work Phone: Comment on above: PATIENT WAS FASTINGP ERFORMED BY: [facility] Fbtreu6201 [facility] [id number] Information: 825061,Q57886 WBC (Bld) [#/Vol] 5.5 {x10E3/uL} Normal 3.4-10.8 [facility] Internal Medicine Work Phone: Comment on above: PATIENT WAS FASTINGP ERFORMED BY: [facility] Hxiaet6260 [facility] [id number] Information: 370774,[id number] WBC (Bld) [#/Vol] 5.5 10*3/uL Normal 3.4-10.8 [facility]; [facility] Work Phone: Comment on above: PATIENT WAS FASTINGP ERFORMED BY: HARLEEN Colleen Iverson6370 [facility] [id number] Information: 542140,V83849 Lipid Panel (85819)Ordered B y: Development Administrator on 12-04-2015 Cholesterol [Mass/Vol] 171 mg/dL Normal 100-199 [facility] Internal Medicine Work Phone: Comment on above: PATIENT WAS FASTINGP ERFORMED BY: HARLEEN Daydayodilia Bttnob6634 Mauro NetScalerNovant Health Forsyth Medical Centerin [place] [id number] Cholesterol in HDL [Mass/Vol] 68 mg/dL Normal [facility] Work Phone: Comment on above: According to ATP-III Guidelines, HDL-C >59 mg/dL is considered anegative risk factor for CHD. PATIENT WAS FASTINGP ERFORMED BY: HARLEEN Daydayodilia Jjfhkf7626 Mauro NetScalerUNC Medical Center [id number] Cholesterol in LDL [Mass/Vol] 86 mg/dL Normal 0-99 [facility] Work Phone: Comment on above: PATIENT WAS FASTINGP ERFORMED BY: HARLEEN Daydayodilia Bcavtc3918 Mauro NetScalerUNC Medical Center [id number] Cholesterol in LDL/Cholesterol in HDL [Mass ratio] 1.3 {ratio_units} Normal 0.0-3.2 [facility] Work Phone: Comment on above: LDL/HDL Ratio Men Wo men 1/2 Avg.Risk 1.0 1.5 Avg.Risk 3.6 3.2 2X Avg.Risk 6.2 5.0 3X Avg.Risk 8.0 6.1 PATIENT WAS FASTINGP ERFORMED BY: HARLEEN Daydayodilia Yqwjij3016 Mauro NetScalerUNC Medical Center [id number] Cholesterol in VLDL [Mass/Vol] 17 mg/dL Normal 5-40 [facility] Work Phone: Comment on above: PATIENT WAS FASTINGP ERFORMED BY: HARLEEN LabHamodilia Mhakiw3183 Mauro NetScalerCarnesville [place] [id number] Triglyceride [Mass/Vol] 84 mg/dL Normal 0-149 [facility] Work Phone: Comment on above: PATIENT WAS FASTINGP ERFORMED BY: HARLEEN [facility] Idplhe9168 Mauro RoadDublin [place] [id number] Metabolic Panel, Comprehensi ve (16673)Ordered By: Development Administrator on 12-04-2015 Albumin [Mass/Vol] 4.8 g/dL Normal 3.5-5.5 [facility] Internal Medicine Work Phone: Comment on above: PATIENT WAS FASTINGP ERFORMED BY: HARLEEN [facility] Fyloeg1673 Mauro RoadDublin [place] [id number] Albumin/Globulin [Mass ratio] 2.1 {ratio} Normal 1.1-2.5 [facility] Work Phone: Comment on above: PATIENT WAS FASTINGP ERFORMED BY: HARLEEN [facility] Cdlqvq7913 [address]uro RoadDublin [place] [id number] ALP [Catalytic activity/Vol] 38 [iU]/L Abnormal 39-117 [facility] Work Phone: Comment on above: PATIENT WAS FASTINGP ERFORMED BY: HARLEEN [facility] Lvuykc4268 Mauro RoadDublin [place] [id number] ALP [Catalytic activity/Vol] 38 U/L Abnormal 39-117 [facility]; [facility] Work Phone: Comment on above: PATIENT WAS FASTINGP ERFORMED BY: HARLEEN [facility] Boqszv5876 Mauro RoadDublin [place] [id number] ALT [Catalytic activity/Vol] 28 [iU]/L Normal 0-32 [facility] Work Phone: Comment on above: PATIENT WAS FASTINGP ERFORMED BY: HARLEEN [facility] Djgxxj0591 Mauro RoadDublin [place] [id number] ALT [Catalytic activity/Vol] 28 U/L Normal 0-32 [facility]; [facility] Work Phone: Comment on above: PATIENT WAS FASTINGP ERFORMED BY: HARLEEN [facility] Jyagsi2581 Mauro RoadDublin [place] [id number] AST [Catalytic activity/Vol] 58 [iU]/L Abnormal 0-40 [facility] Work Phone: Comment on above: PATIENT WAS FASTINGP ERFORMED BY: CB [facility] Vntrxu8267 Mauro RoadDublin [place] [id number] AST [Catalytic activity/Vol] 58 U/L Abnormal 0-40 [facility]; [facility] Internal Medicine Work Phone: Comment on above: PATIENT WAS FASTINGP ERFORMED BY: CB [facility] Woigqt7037 Ma[address] RoadDublin [place] [id number] Bilirubin [Mass/Vol] 0.7 mg/dL Normal 0.0-1.2 [facility] Work Phone: Comment on above: PATIENT WAS FASTINGP ERFORMED BY: [facility] Srkcmu7715 Mauro RoadDublin [place] [id number] Calcium [Mass/Vol] 9.2 mg/dL Normal 8.7-10.2 [facility] Internal Medicine Work Phone: Comment on above: PATIENT WAS FASTINGP ERFORMED BY: [facility] Zcsxzm6549 Mauro RoadDublin [place] [id number] Chloride [Moles/Vol] 101 mmol/L Normal 97-108 [facility] Internal Medicine Work Phone: Comment on above: PATIENT WAS FASTINGP ERFORMED BY: [facility] Ipgnar1584 Mauro RoadDublin [place] [id number] CO2 [Moles/Vol] 22 mmol/L Normal 18-29 [facility] Internal Medicine Work Phone: Comment on above: PATIENT WAS FASTINGP ERFORMED BY: [facility] Sraapy5523 Mauro RoadDublin [place] [id number] Creatinine [Mass/Vol] 0.83 mg/dL Normal 0.57-1.00 [facility] Internal Medicine Work Phone: Comment on above: PATIENT WAS FASTINGP ERFORMED BY: CB [facility] Tqtrhz8869 Mauro RoadDublin [place] [id number] GFR/1.73 sq M predicted among blacks CKD-EPI (S/P/Bld) [Vol rate/Area] 109 mL/min/1.73 Normal [facility] Internal Medicine Work Phone: Comment on above: PATIENT WAS FASTINGP ERFORMED BY: HARLEEN [facility] Untpta1677 Ma[address] RoadDublin [place] [id number] GFR/1.73 sq M predicted among non-blacks CKD-EPI (S/P/Bld) [Vol rate/Area] 95 mL/min/1.73 Normal [facility] Internal Medicine Work Phone: Comment on above: PATIENT WAS FASTINGP ERFORMED BY: HARLEEN [facility] Ezzbgs4238 Ma[address] Roadblin [place] [id number] Globulin (S) [Mass/Vol] 2.3 g/dL Normal 1.5-4.5 [facility] Internal Medicine Work Phone: Comment on above: PATIENT WAS FASTINGP ERFORMED BY: HARLEEN [facility] Tbsgnj3946 Mauro RoadNovant Health Forsyth Medical Centerin [place] [id number] Glucose [Mass/Vol] 85 mg/dL Normal 65-99 [facility] Internal Medicine Work Phone: Comment on above: PATIENT WAS FASTINGP ERFORMED BY: HARLEEN [facility]Jeff[facility] Fkbruq0207 Mauro [facility] Hospitalin [place] [id number] Potassium [Moles/Vol] 4.3 mmol/L Normal 3.5-5.2 [facility] Internal Medicine Work Phone: Comment on above: PATIENT WAS FASTINGP ERFORMED BY: [facility] Nofqhd3741 Ma[address] G[facility] Hospitalblin [place] [id number] Protein [Mass/Vol] 7.1 g/dL Normal 6.0-8.5 [facility] Internal Medicine Work Phone: Comment on above: PATIENT WAS FASTINGP ERFORMED BY: [facility] Uspnxo4694 Mauro RoadDublin [place] [id number] Sodium [Moles/Vol] 140 mmol/L Normal 134-144 [facility] Internal Medicine Work Phone: Comment on above: PATIENT WAS FASTINGP ERFORMED BY: HARLEEN [facility] Betqgh9344 [address] RoadDublin [place] [id number] Urea nitrogen [Mass/Vol] 13 mg/dL Normal 6-20 [facility] Work Phone: Comment on above: PATIENT WAS FASTINGP ERFORMED BY: LabCoOcean Medical CenterIjucmf6214 [facility] [id number] Urea nitrogen/Creatinine [Mass ratio] 16 mg/mg Normal 8-20 [facility] Work Phone: Comment on above: PATIENT WAS FASTINGP ERFORMED BY: LabCoOcean Medical CenterMwkyth8017 [facility] [id number] TSH (60040)Ordered By: Flirtomatice m [facility] Worker on 12-04-2015 TSH Qn 1.260 {uIU/mL} Normal 0.450-4.500 [facility] Internal Medicine Work Phone: Comment on above: PATIENT WAS FASTINGP ERFORMED BY: HARLEEN LabCoOcean Medical CenterXfjzar1182 [facility] [id number] Rapid Flu (15979 x 2)Ordered By: Aurora Galvin on 08-12-2015 FLUAV Ag IA Ql (Throat) neg a and b Normal [facility] Work Phone: Rapid Strep Test, Office ([phone])Ordered By: Aurora Galvin on 08-12-2015 S. pyogenes Ag EIA Ql (Throat) Negative Normal [facility]; [facility] Work Phone: S. pyogenes Ag IA Ql (Unsp spec) Negative Normal [facility] Work Phone: NuSwab Vaginitis Plus (STD W /O Herpes) (78118)Ordered By: Development Administrator on 10-24-2014 A. vaginae DNA SOFIA+probe Ql (Vag fld) Low - 0 Normal [facility] Internal Medicine Work Phone: Comment on above: PATIENT NOT FASTINGP ERFORMED BY: LabWyodilia TripathiHgekxolsaw3170 [facility] [id number] Information: [id number] Bacterial vaginosis associated bacterium 2 DNA SOFIA+probe Ql (Vag fld) Low - 0 Normal [facility] Work Phone: Comment on above: PATIENT NOT FASTINGP ERFORMED BY: [address] [id number] Information: L34841 C. albicans DNA SOFIA+probe Ql (Vag fld) Negative Normal Comprehen [facility] Internal Medicine Work Phone: Comment on above: PATIENT NOT FASTINGP ERFORMED BY: [address] [id number] Information: W64905 C. albicans DNA SOFIA+probe Ql (Vag fld) Negative Normal [facility]; [facility] Work Phone: Comment on above: PATIENT NOT FASTINGP ERFORMED BY: [address] [id number] Information: P94141 C. glabrata DNA SOFIA+probe Ql (Vag fld) Negative Normal Comprehen [facility] Internal Medicine Work Phone: Comment on above: This test was develo ped and its performance characteristics determinedby [facility]. It has not been cleared or approved by the Food and DrugAdministration. The FDA has determined that such clearance orapproval is not necessary. PATIENT NOT FASTINGP ERFORMED BY: [address] [id number] Information: [id number] C. glabrata DNA SOFIA+probe Ql (Vag fld) Negative Normal Comprehen [facility] Internal Medicine; [facility] Work Phone: Comment on above: This test was develo ped and its performance characteristics determinedby [facility]. It has not been cleared or approved by the Food and DrugAdministration. The FDA has determined that such clearance orapproval is not necessary. PATIENT NOT FASTINGP ERFORMED BY: [address] [id number] Information: S19876 C. trachomatis rRNA SOFIA+probe Ql (Unsp spec) Negative Normal [facility] Work Phone: Comment on above: PATIENT NOT FASTINGP ERFORMED BY: [address] [id number] Information: [id number] C. trachomatis rRNA SOFIA+probe Ql (Unsp spec) Negative Normal [facility]; [facility] Work Phone: Comment on above: PATIENT NOT FASTINGP ERFORMED BY: [address] [id number] Information: [id number] Megasphaera sp type 1 DNA SOFIA+probe Ql [...] was developed and its performance characteristics determinedby [facility]. It has not been cleared or approved by the Food and DrugAdministration. The FDA has determined that such clearance orapproval is not necessary. PATIENT NOT FASTINGP ERFORMED BY: [address] [id number] Information: E88788 N. gonorrhoeae rRNA SOFIA+probe Ql (Unsp spec) Negative Normal [facility] Work Phone: Comment on above: PATIENT NOT FASTINGP ERFORMED BY: [address] [id number] Information: R53311 N. gonorrhoeae rRNA SOFIA+probe Ql (Unsp spec) Negative Normal [facility]; [facility] Work Phone: Comment on above: PATIENT NOT FASTINGP ERFORMED BY: [address] [id number] Information: Z37305 T. vaginalis rRNA SOFIA+probe Ql (Unsp spec) Negative Normal [facility] Work Phone: Comment on above: PATIENT NOT FASTINGP ERFORMED BY: [address] [id number] Information: K36689 T. vaginalis rRNA SOFIA+probe Ql (Unsp spec) Negative Normal [facility]; [facility] Work Phone: Comment on above: PATIENT NOT FASTINGP ERFORMED BY: [facility]OOK[facility] Hospital1447 [facility] [id number] Information: T01353 Rapid Strep Test, Office (38 [phone])Ordered By: Aurora Galvin on 05-13-2014 S. pyogenes Ag EIA Ql (Throat) Negative Normal [facility]; [facility] Work Phone: S. pyogenes Ag IA Ql (Unsp spec) Negative Normal [facility] Work Phone: Throat Culture (13684)Ordere d By: Development Administrator on 05-13-2014 Bacteria identified Respiratory culture Nom (Unsp spec) Final report Normal [facility] Work Phone: Comment on above: PATIENT NOT FASTINGP ERFORMED BY: LabGreatPoint Energyrp Wimrge6523 Mauro RoadUNC Medical Center [id number] Information: SRC:ROSALBA G34315 Bacteria identified Respiratory culture Nom (Unsp spec) RRF Normal [facility] Work Phone: Comment on above: Routine respiratory beverly PATIENT NOT FASTINGP ERFORMED BY: LabGreatPoint Energyrp Yrxkux5822 [facility] [id number] Information: SRC:ROSALBA B58750 LIPID PANEL (70096)Ordered B y: Development Administrator on 04-02-2014 Cholesterol [Mass/Vol] 191 mg/dL Normal 100-[address] [facility] Internal Medicine Work Phone: Comment on above: PATIENT WAS FASTINGP ERFORMED BY: [facility] Civcmd3695 Ma[address] NetScalerNovant Health Forsyth Medical Centerin [place] [id number] Cholesterol in HDL [Mass/Vol] 66 mg/dL Normal [facility] Work Phone: Comment on above: According to ATP-III Guidelines, HDL-C >59 mg/dL is considered anegative risk factor for CHD. PATIENT WAS FASTINGP ERFORMED BY: LabGreatPoint Energyrp Pgwyaf4438 Mauro NetScalerNovant Health Forsyth Medical Centerin [place] [id number] Cholesterol in LDL [Mass/Vol] 99 mg/dL Normal 0-99 [facility] Work Phone: Comment on above: PATIENT WAS FASTINGP ERFORMED BY: HARLEEN Colleen Iverson6370 [facility] [id number] Cholesterol in LDL/Cholesterol in HDL [Mass ratio] 1.5 {ratio_units} Normal 0.0-3.2 [facility] Work Phone: Comment on above: PATIENT WAS FASTINGP ERFORMED BY: HARLEEN Daydayodilia BobFrgihp6596 [facility] [id number] Cholesterol in VLDL [Mass/Vol] 26 mg/dL Normal 5-40 [facility] Work Phone: Comment on above: PATIENT WAS FASTINGP ERFORMED BY: HARLEEN Daydayodilia Gsmteg3392 [facility] [id number] Triglyceride [Mass/Vol] 132 mg/dL Normal 0-149 [facility] Work Phone: Comment on above: PATIENT WAS FASTINGP ERFORMED BY: HARLEEN Dayday Ymwbdo8475 [facility] [id number] METABOLIC PANEL, COMPREHENSI VE (54824)Ordered By: Development Administrator on 04-02-2014 Albumin [Mass/Vol] 4.4 g/dL Normal 3.5-5.5 [facility] Internal Medicine Work Phone: Comment on above: PATIENT WAS FASTINGP ERFORMED BY: HARLEEN [facility]Jeff[facility] Hospital Qhswyh0354 [facility] [id number] Information: [id number],[id number] Albumin/Globulin [Mass ratio] 1.9 {ratio} Normal 1.1-2.5 [facility] Work Phone: Comment on above: PATIENT WAS FASTINGP ERFORMED BY: HARLEEN [facility] Qthamo0128 [facility] [id number] Information: [id number],S99513 ALP [Catalytic activity/Vol] 54 [iU]/L Normal 39-117 [facility] Work Phone: Comment on above: PATIENT WAS FASTINGP ERFORMED BY: HARLEEN [facility] Erckbd8265 [address] [facility]in [place] [id number] Information: 413143,K05047 ALP [Catalytic activity/Vol] 54 U/L Normal 39-117 [facility]; [facility] Work Phone: Comment on above: PATIENT WAS FASTINGP ERFORMED BY: [facility] Jhxksd1221 [facility] [place] [id number] Information: [id number] ALT [Catalytic activity/Vol] 21 [iU]/L Normal 0-32 [facility] Work Phone: Comment on above: PATIENT WAS FASTINGP ERFORMED BY: [facility] Wqikue3800 [facility] [place] [id number] Information: [id number] ALT [Catalytic activity/Vol] 21 U/L Normal 0-32 [facility]; [facility] Work Phone: Comment on above: PATIENT WAS FASTINGP ERFORMED BY: [facility] Avghio9023 [facility] [place] [id number] Information: [id number] AST [Catalytic activity/Vol] 18 [iU]/L Normal 0-40 [facility] Work Phone: Comment on above: PATIENT WAS FASTINGP ERFORMED BY: [facility] Sfiihx6648 [facility] [place] [id number] Information: [id number] AST [Catalytic activity/Vol] 18 U/L Normal 0-40 [facility]; [facility] Work Phone: Comment on above: PATIENT WAS FASTINGP ERFORMED BY: [facility] Zdiizl3797 [facility] [place] [id number] Information: [id number] Bilirubin [Mass/Vol] 0.6 mg/dL Normal 0.0-1.2 [facility] Internal Medicine Work Phone: Comment on above: PATIENT WAS FASTINGP ERFORMED BY: [facility] Gjluum2936 [facility] [place] [id number] Information: [id number] Calcium [Mass/Vol] 9.5 mg/dL Normal 8.7-10.2 [facility] Internal Medicine Work Phone: Comment on above: PATIENT WAS FASTINGP ERFORMED BY: HARLEEN [facility] Cbmxvt6795 [facility] [id number] Information: [id number] Chloride [Moles/Vol] 99 mmol/L Normal 97-108 [facility] Work Phone: Comment on above: PATIENT WAS FASTINGP ERFORMED BY: HARLEEN [facility] Jznsiy5796 [facility] [id number] Information: [id number] CO2 [Moles/Vol] 25 mmol/L Normal 18-29 [facility] Internal Medicine Work Phone: Comment on above: PATIENT WAS FASTINGP ERFORMED BY: HARLEEN [facility] Wjwcin2841 [facility] [id number] Information: [id number] Creatinine [Mass/Vol] 0.98 mg/dL Normal 0.57-1.00 [facility] Work Phone: Comment on above: PATIENT WAS FASTINGP ERFORMED BY: HARLEEN [facility] Oejrzc4223 [facility] [id number] Information: [id number],[id number] GFR/1.73 sq M predicted among blacks CKD-EPI (S/P/Bld) [Vol rate/Area] 91 mL/min/1.73 Normal [facility] Work Phone: Comment on above: PATIENT WAS FASTINGP ERFORMED BY: [facility] Ogpwwj0519 [facility] [id number] Information: [id number] GFR/1.73 sq M predicted among non-blacks CKD-EPI (S/P/Bld) [Vol rate/Area] 79 mL/min/1.73 Normal [facility] Work Phone: Comment on above: PATIENT WAS FASTINGP ERFORMED BY: HARLEEN [facility] Eqwptg9299 [facility] [id number] Information: [id number],[id number] Globulin (S) [Mass/Vol] 2.3 g/dL Normal 1.5-4.5 [facility] Internal Medicine Work Phone: Comment on above: PATIENT WAS FASTINGP ERFORMED BY: [facility]6370 [facility] [id number] Information: [id number] Glucose [Mass/Vol] 78 mg/dL Normal 65-99 [facility] Internal Medicine Work Phone: Comment on above: PATIENT WAS FASTINGP ERFORMED BY: [place] [id number] [facility] [id number] Information: [id number],[id number] Potassium [Moles/Vol] 4.2 mmol/L Normal 3.5-5.2 [facility] Internal Medicine Work Phone: Comment on above: PATIENT WAS FASTINGP ERFORMED BY: [place] 0861270 [facility] [id number] Information: [id number],[id number] Protein [Mass/Vol] 6.7 g/dL Normal 6.0-8.5 [facility] Internal Medicine Work Phone: Comment on above: PATIENT WAS FASTINGP ERFORMED BY: [place] 0861270 [facility] [id number] Information: [id number],[id number] Sodium [Moles/Vol] 141 mmol/L Normal 134-144 [facility] Internal Medicine Work Phone: Comment on above: PATIENT WAS FASTINGP ERFORMED BY: [facility]6370 [facility] [id number] Information: [id number] Urea nitrogen [Mass/Vol] 11 mg/dL Normal 6-20 [facility] Internal Medicine Work Phone: Comment on above: PATIENT WAS FASTINGP ERFORMED BY: [facility] Hzlzyp1920 [facility] [id number] Information: [id number] Urea nitrogen/Creatinine [Mass ratio] 11 mg/mg Normal 8-20 [facility] Work Phone: Comment on above: PATIENT WAS FASTINGP ERFORMED BY: HARLEEN Dayday Ltyokl0855 [facility] [id number] Information: [id number] Glucose (88713)Ordered By: [facility] Worker on 05-23-2013 Glucose [Mass/Vol] 79 mg/dL Normal 65-99 [facility] Internal Medicine Work Phone: Comment on above: PATIENT WAS FASTINGP ERFORMED BY: HARLEEN [address] [id number] LIPID PANEL (28005)Ordered B y: Development Administrator on 05-23-2013 Cholesterol [Mass/Vol] 162 mg/dL Normal 100-199 [facility] Internal Medicine Work Phone: Comment on above: PATIENT WAS FASTINGP ERFORMED BY: HARLEEN EliuJohn [place] [id number] [facility] [id number] Information: [id number],[id number] Cholesterol in HDL [Mass/Vol] 62 mg/dL Normal [facility] Work Phone: Comment on above: According to ATP-III Guidelines, HDL-C >59 mg/dL is considered anegative risk factor for CHD. PATIENT WAS FASTINGP ERFORMED BY: HARLEEN [facility]6370 [facility] [id number] Information: [id number],[id number] Cholesterol in LDL [Mass/Vol] 90 mg/dL Normal 0-99 [facility] Work Phone: Comment on above: PATIENT WAS FASTINGP ERFORMED BY: LabJohn [place] 2923470 [facility] [id number] Information: 539472,[id number] Cholesterol in LDL/Cholesterol in HDL [Mass ratio] 1.5 {ratio_units} Normal 0.0-3.2 [facility] Work Phone: Comment on above: PATIENT WAS FASTINGP ERFORMED BY: HARLEEN [facility] Scrtxz2078 [facility] [id number] Information: [id number],[id number] Cholesterol in VLDL [Mass/Vol] 10 mg/dL Normal 5-40 [facility] Work Phone: Comment on above: PATIENT WAS FASTINGP ERFORMED BY: [facility] Tuecdk6217 [facility] [id number] Information: [id number],[id number] Triglyceride [Mass/Vol] 48 mg/dL Normal 0-149 [facility] Work Phone: Comment on above: PATIENT WAS FASTINGP ERFORMED BY: [facility] Tplnhv1824 [facility] [id number] Information: [id number] MENDY CULTURE-OTHER (53598)Ord ered By: Development Administrator on 09-03-2010 Bacteria identified Respiratory culture Nom (Unsp spec) Final report Normal [facility] Work Phone: Comment on above: PERFORMED BY: [employer] Cqwpat9483 [facility] [id number] Information: SRC: THROAT Bacteria identified Respiratory culture Nom (Unsp spec) BETAGB Normal [facility] Work Phone: Comment on above: Beta hemolytic Strep tococcus, group BHeavy growthPenicillin continues to be the drug of choice for infectionscaused by beta hemolytic streptococci in groups A,B,C and G.No penicillin resistance has been described among theseorganisms and surveillance for emerging resistance is notrecommended. (Meredith, DF. Clinical Microbiology Newsletter,1993; SARAHI Barclay, et al. Diagnostic Microbiology andInfectious Disease, January,.) PERFORMED BY: [employer] Bjdngp5470 [facility] [id number] Information: SRC: THROAT Rapid Strep Test, Office (31 584)Ordered By: No Ariza on 09-03-2010 S. pyogenes Ag EIA Ql (Throat) Negative Normal [facility]; [facility] Work Phone: S. pyogenes Ag IA Ql (Unsp spec) Negative Normal [facility] Work Phone: CBC WITH MANUAL DIFF (38650) Ordered By: Development Administrator on 06-07-2010 Basophils (Bld) [#/Vol] 0.0 {x10E3/uL} Normal 0.0-0.2 [facility] Work Phone: Comment on above: PATIENT NOT FASTINGP ERFORMED BY: [address] [id number] Information: 534644,[id number] Basophils (Bld) [#/Vol] 0.0 10*3/uL Normal 0.0-0.2 [facility]; [facility] Work Phone: Comment on above: PATIENT NOT FASTINGP ERFORMED BY: Lab[address] [id number] Information: [id number] Basophils/100 WBC (Bld) 0 % Normal 0-3 [facility] Work Phone: Comment on above: PATIENT NOT FASTINGP ERFORMED BY: [address] [id number] Information: [id number] Eosinophils (Bld) [#/Vol] 0.1 {x10E3/uL} Normal 0.0-0.4 [facility] Work Phone: Comment on above: PATIENT NOT FASTINGP ERFORMED BY: [address] [id number] Information: 610409,[id number] Eosinophils (Bld) [#/Vol] 0.1 10*3/uL Normal 0.0-0.4 [facility]; [facility] Work Phone: Comment on above: PATIENT NOT FASTINGP ERFORMED BY: LabJohn [place] 2923470 [facility] [id number] Information: 943057,[id number] Eosinophils/100 WBC (Bld) 1 % Normal 0-7 [facility] Work Phone: Comment on above: PATIENT NOT FASTINGP ERFORMED BY: HARLEEN [facility]6370 [facility] [id number] Information: [id number],C10090 Erythrocyte distribution width (RBC) [Ratio] 14.1 % Normal 11.7-15.0 [facility] Work Phone: Comment on above: PATIENT NOT FASTINGP ERFORMED BY: [address] [id number] Information: 386191,[id number] Hematocrit (Bld) [Volume fraction] 38.0 % Normal 34.0-44.0 [facility] Work Phone: Comment on above: PATIENT NOT FASTINGP ERFORMED BY: HARLEEN Naylor[address] [id number] Information: [id number] Hemoglobin (Bld) [Mass/Vol] 12.5 g/dL Normal 11.5-15.0 [facility] Work Phone: Comment on above: PATIENT NOT FASTINGP ERFORMED BY: [address] [id number] Information: [id number],[id number] Immature granulocytes (Bld) [#/Vol] 0.0 {x10E3/uL} Normal 0.0-0.1 [facility] Work Phone: Comment on above: PATIENT NOT FASTINGP ERFORMED BY: [place] 0861270 [facility] [id number] Information: [id number],[id number] Immature granulocytes (Bld) [#/Vol] 0.0 10*3/uL Normal 0.0-0.1 [facility]; [facility] Work Phone: Comment on above: PATIENT NOT FASTINGP ERFORMED BY: HARLEEN [place] [id number] [facility] [id number] Information: [id number] Immature granulocytes/100 WBC (Bld) 0 % Normal 0-1 [facility] Work Phone: Comment on above: PATIENT NOT FASTINGP ERFORMED BY: HARLEEN Naylor Ejzlzc2689 [facility] [id number] Information: [id number] Lymphocytes (Bld) [#/Vol] 1.4 {x10E3/uL} Normal 0.7-4.5 [facility] Work Phone: Comment on above: PATIENT NOT FASTINGP ERFORMED BY: HARLEEN NaylorSherry [place] [id number] [facility] [id number] Information: [id number],[id number] Lymphocytes (Bld) [#/Vol] 1.4 10*3/uL Normal 0.7-4.5 [facility]; [facility] Work Phone: Comment on above: PATIENT NOT FASTINGP ERFORMED BY: HARLEEN Naylor Nrdbhl0879 [facility] [id number] Information: [id number] Lymphocytes/100 WBC (Bld) 24 % Normal 14-46 [facility] Work Phone: Comment on above: PATIENT NOT FASTINGP ERFORMED BY: HARLEEN Naylor Sbjpcp9880 [facility] [id number] Information: 252375,[id number] MCH (RBC) [Entitic mass] 27.4 pg Normal 27.0-34.0 [facility] Internal Medicine Work Phone: Comment on above: PATIENT NOT FASTINGP ERFORMED BY: HARLEEN [facility]CoO[facility] CenterXbfvzp0212 [facility] [id number] Information: 999486,[id number] MCHC (RBC) [Mass/Vol] 32.9 g/dL Normal 32.0-36.0 [facility] Internal Medicine Work Phone: Comment on above: PATIENT NOT FASTINGP ERFORMED BY: HARLEEN [facility]CoOcean Medical CenterDornok4777 [facility] [id number] Information: [id number] MCV (RBC) [Entitic vol] 83 fL Normal 80-98 [facility] Work Phone: Comment on above: PATIENT NOT FASTINGP ERFORMED BY: HARLEEN LabCoodilia IversonYqkwdw0915 [facility] [id number] Information: [id number] Monocytes (Bld) [#/Vol] 0.4 {x10E3/uL} Normal 0.1-1.0 [facility] Work Phone: Comment on above: PATIENT NOT FASTINGP ERFORMED BY: CB [facility] Xgzyyc4318 [facility] [id number] Information: [id number] Monocytes (Bld) [#/Vol] 0.4 10*3/uL Normal 0.1-1.0 [facility]; [facility] Work Phone: Comment on above: PATIENT NOT FASTINGP ERFORMED BY: HARLEEN [facility] Nabjmw7788 [facility] [id number] Information: [id number],[id number] Monocytes/100 WBC (Bld) 6 % Normal 4-13 [facility] Work Phone: Comment on above: PATIENT NOT FASTINGP ERFORMED BY: CB [facility] Qzujmi6951 [facility] [id number] Information: 793393,[id number] Neutrophils (Bld) [#/Vol] 4.2 {x10E3/uL} Normal 1.8-7.8 [facility] Work Phone: Comment on above: PATIENT NOT FASTINGP ERFORMED BY: CB [facility] Aggimy0351 [facility] [id number] Information: 251490,[id number] Neutrophils (Bld) [#/Vol] 4.2 10*3/uL Normal 1.8-7.8 [facility]; [facility] Work Phone: Comment on above: PATIENT NOT FASTINGP ERFORMED BY: CB [facility] Ekxdeh8386 [facility] [id number] Information: [id number],[id number] Neutrophils/100 WBC (Bld) 69 % Normal 40-74 [facility] Work Phone: Comment on above: PATIENT NOT FASTINGP ERFORMED BY: HARLEEN NowakCoodilia IversonZmxjqp7021 Mauro [facility]rzejAt[facility] Health Waxhaw [id number] Information: [id number],[id number] Platelets (Bld) [#/Vol] 219 {x10E3/uL} Normal 140-415 [facility] Work Phone: Comment on above: PATIENT NOT FASTINGP ERFORMED BY: HARLEEN NowakCoodilia IversonDchtfn1553 [facility] [id number] Information: [id number] Platelets (Bld) [#/Vol] 219 10*3/uL Normal 140-415 [facility]; [facility] Work Phone: Comment on above: PATIENT NOT FASTINGP ERFORMED BY: HARLEEN Iverson6370 [facility] [id number] Information: [id number],[id number] RBC (Bld) [#/Vol] 4.56 {x10E6/uL} Normal 3.80-5.10 [facility] Internal Medicine Work Phone: Comment on above: PATIENT NOT FASTINGP ERFORMED BY: HARLEEN Iverson6370 [facility] [id number] Information: [id number] RBC (Bld) [#/Vol] 4.56 10*6/uL Normal 3.80-5.10 [facility] Internal Medicine; [facility] Work Phone: Comment on above: PATIENT NOT FASTINGP ERFORMED BY: HARLEEN [facility] Ycsvmi5565 [facility] [id number] Information: [id number] WBC (Bld) [#/Vol] 6.1 {x10E3/uL} Normal 4.0-10.5 [facility] Internal Medicine Work Phone: Comment on above: PATIENT NOT FASTINGP ERFORMED BY: HARLEEN [facility] Vgjwxa9317 [facility] [id number] Information: [id number] WBC (Bld) [#/Vol] 6.1 10*3/uL Normal 4.0-10.5 [facility] Internal Medicine; [facility] Internal Medicine Work Phone: Comment on above: PATIENT NOT FASTINGP ERFORMED BY: HARLEEN [facility] Hxztle3014 Mauro RoadDublin [place] [id number] Information: [id number],M30515 METABOLIC PANEL, COMPREHENSI VE (13033)Ordered By: Development Administrator on 06-07-2010 Albumin [Mass/Vol] 4.4 g/dL Normal 3.5-5.5 [facility] Internal Medicine Work Phone: Comment on above: PATIENT NOT FASTINGP ERFORMED BY: HARLEEN [facility] Pljvmz2872 Mauro RoadDublin [place] [id number] Albumin/Globulin [Mass ratio] 2.0 {ratio} Normal 1.1-2.5 [facility] Work Phone: Comment on above: PATIENT NOT FASTINGP ERFORMED BY: CB [facility] Mcmgoj3514 [address] RoadDublin [place] [id number] ALP [Catalytic activity/Vol] 52 [iU]/L Normal 25-150 [facility] Work Phone: Comment on above: PATIENT NOT FASTINGP ERFORMED BY: HARLEEN [facility] Csvbvh9412 [address] RoadDublin [place] [id number] ALP [Catalytic activity/Vol] 52 U/L Normal 25-150 [facility]; [facility] Work Phone: Comment on above: PATIENT NOT FASTINGP ERFORMED BY: CB [facility] Nclfcv0868 [address] RoadDublin [place] [id number] ALT [Catalytic activity/Vol] 10 [iU]/L Normal 0-40 [facility] Work Phone: Comment on above: PATIENT NOT FASTINGP ERFORMED BY: CB [facility] Jayxog0387 [address] RoadDublin [place] [id number] ALT [Catalytic activity/Vol] 10 U/L Normal 0-40 [facility]; [facility] Work Phone: Comment on above: PATIENT NOT FASTINGP ERFORMED BY: CB [facility] Tvuqtm2812 [address] RoadDublin [place] [id number] AST [Catalytic activity/Vol] 15 [iU]/L Normal 0-40 [facility] Work Phone: Comment on above: PATIENT NOT FASTINGP ERFORMED BY: CB [facility] Vnlbxw9401 [address] RoadDublin [place] [id number] AST [Catalytic activity/Vol] 15 U/L Normal 0-40 [facility]; [facility] Work Phone: Comment on above: PATIENT NOT FASTINGP ERFORMED BY: CB [facility] Kdnyla0796 [address] RoadDublin [place] [id number] Bilirubin [Mass/Vol] 0.4 mg/dL Normal 0.0-1.2 [facility] Work Phone: Comment on above: PATIENT NOT FASTINGP ERFORMED BY: HARLEEN [facility] Xlfcnw8086 [address] RoadDublin [place] [id number] Calcium [Mass/Vol] 9.0 mg/dL Normal 8.7-10.2 [facility] Internal Medicine Work Phone: Comment on above: PATIENT NOT FASTINGP ERFORMED BY: HARLEEN [facility] Tlsxzq5681 [address] RoadDublin [place] [id number] Chloride [Moles/Vol] 102 mmol/L Normal 97-108 [facility] Work Phone: Comment on above: PATIENT NOT FASTINGP ERFORMED BY: CB [facility] Ddookp7724 [address] RoadDublin [place] [id number] CO2 [Moles/Vol] 20 mmol/L Normal 20-32 [facility] Internal Medicine Work Phone: Comment on above: PATIENT NOT FASTINGP ERFORMED BY: CB [facility] Bourpy3648 [address] RoadDublin [place] [id number] Creatinine [Mass/Vol] 0.88 mg/dL Normal 0.57-1.00 [facility] Internal Medicine Work Phone: Comment on above: PATIENT NOT FASTINGP ERFORMED BY: CB [facility] Hctkga5992 [address] RoadDublin [place] [id number] GFR/1.73 sq M predicted among blacks MDRD [...] PATIENT NOT FASTINGP ERFORMED BY: CB [facility] Ngdlff1708 [facility] [place] [id number] GFR/1.73 sq M.predicted MDRD (S/P/Bld) [Vol rate/Area] mL/min/{1.73_m2} Normal [facility] Internal Medicine Work Phone: Comment on above: PATIENT NOT FASTINGP ERFORMED BY: CB [facility] Xydoqz0999 Mauro NetScalerUNC Medical Center [id number] Globulin (S) [Mass/Vol] 2.2 g/dL Normal 1.5-4.5 [facility] Internal Medicine Work Phone: Comment on above: PATIENT NOT FASTINGP ERFORMED BY: CB [facility] Kztxwg9638 [facility] [place] [id number] Glucose [Mass/Vol] 82 mg/dL Normal 65-99 [facility] Internal Medicine Work Phone: Comment on above: PATIENT NOT FASTINGP ERFORMED BY: CB [facility] Ekgyqt3226 [facility] [place] [id number] Potassium [Moles/Vol] 4.0 mmol/L Normal 3.5-5.2 [facility] Internal Medicine Work Phone: Comment on above: PATIENT NOT FASTINGP ERFORMED BY: CB [facility] Qshvdx5809 [facility] [place] [id number] Protein [Mass/Vol] 6.6 g/dL Normal 6.0-8.5 [facility] Internal Medicine Work Phone: Comment on above: PATIENT NOT FASTINGP ERFORMED BY: CB [facility] Ygrrqm3315 [address] RoadDublin [place] [id number] Sodium [Moles/Vol] 138 mmol/L Normal 135-145 [facility] Internal Medicine Work Phone: Comment on above: PATIENT NOT FASTINGP ERFORMED BY: CB [facility] Drnaby4397 [address] RoadDublin [place] [id number] Urea nitrogen [Mass/Vol] 13 mg/dL Normal 5- [facility] Work Phone: Comment on above: PATIENT NOT FASTINGP ERFORMED BY: CB [facility] Frlfra0585 [address] RoadDublin [place] [id number] Urea nitrogen/Creatinine [Mass ratio] 15 mg/mg Normal 8- [facility] Work Phone: Comment on above: PATIENT NOT FASTINGP ERFORMED BY: CB [facility] Ggllci6741 [address] RoadDuin [place] [id number] TSH (86441)Ordered By: [facility] Worker on 06-07-2010 TSH Qn 1.250 {uIU/mL} Normal 0.450-4.500 [facility] Internal Medicine Work Phone: Comment on above: PATIENT NOT FASTINGP ERFORMED BY: CB [facility] Giwkdg9355 [address] RoadDublin [place] [id number] SKIN TEST INTRADERMAL TB (86 580)Ordered By: Iris Durand on 09-30-2008 SKIN TEST INTRADERMAL TB (78358) Negative Normal [facility] Work Phone: Comment on above: Lot #[id number]-3/2010 Site-left forearmDose0.1given by Gladys Alfredo LPN SKIN TEST INTRADERMAL TB (30826) Negative Normal [facility]; [facility] Work Phone: Comment on above: Lot #[id number]/2010 Site-left forearmDose0.1given by Gladys Alfredo LPN Culture, urine Bacteria identified Cx Nom (U) Positive [facility] Work Phone: Bacteria identified Cx Nom (U) Culture exhibits no growth. [facility] Work Phone: No Panel Information Group B Streptococcus Culture Streptococcus agalactiae (B) [facility] Work Phone: Vital Signs Date Time Vital Sign Value Performing Clinician Facility 05-29-2023 14:57-0400 Body height 165.1 cm DO Alisia Foster Work Phone: [facility] 05-29-2023 14:57-0400 Body mass index (BMI) [Ratio] 22.3 kg/m2 DO Alisia Foster Work Phone: [facility] 05-29-2023 14:57-0400 Body weight 60.78 kg DO Alisia Foster Work Phone: [facility] 05-29-2023 14:57-0400 Diastolic blood pressure 90 mm[Hg] DO Alisia Foster Work Phone: [facility] 05-29-2023 14:57-0400 Heart rate 82 /min DO Alisia Foster Work Phone: [facility] 05-29-2023 14:57-0400 Systolic blood pressure 139 mm[Hg] DO Alisia Foster Work Phone: [facility] 02-20-2023 09:24-0400 Body temperature 98 [degF] Dr. Britta Acevedo Work Phone: [facility] 02-20-2023 09:24-0400 Diastolic blood pressure 72 mm[Hg] Dr. Britta Acevedo Work Phone: [facility] 02-20-2023 09:24-0400 Heart rate 90 /min Dr. Britta Acevedo Work Phone: [facility] 02-20-2023 09:24-0400 Respiratory rate 14 /min Dr. Britta Acevedo Work Phone: [facility] 02-20-2023 09:24-0400 SaO2% (BldA) [Mass fraction] 95 % Dr. Britta Acevedo Work Phone: [facility] 02-20-2023 09:24-0400 Systolic blood pressure 104 mm[Hg] Dr. Britta Acevedo Work Phone: [facility] 12-05-2022 06:26-0400 Body temperature 98.2 [degF] Dr. Britta Acevedo Work Phone: [facility] 12-05-2022 06:26-0400 Diastolic blood pressure 74 mm[Hg] Dr. Britta Acevedo Work Phone: [facility] 12-05-2022 06:26-0400 Heart rate 78 /min Dr. Britta Acevedo Work Phone: [facility] 12-05-2022 06:26-0400 Respiratory rate 16 /min Dr. Britta Acevedo Work Phone: [facility] 12-05-2022 06:26-0400 SaO2% (BldA) [Mass fraction] 98 % Dr. Britta Acevedo Work Phone: [facility] 12-05-2022 06:26-0400 Systolic blood pressure 110 mm[Hg] Dr. Britta Acevedo Work Phone: [facility] 05-26-2022 13:53-0400 Body height 165.[address] Britta Acevedo Work Phone: [facility] Work Phone: 05-26-2022 13:53-0400 Body mass index (BMI) [Ratio] 24 kg/m2 Dr. Britta Acevedo Work Phone: [facility] Work Phone: 05-26-2022 13:53-0400 Body weight 65.[address] Britta Acevedo Work Phone: [facility] Work Phone: 05-26-2022 13:53-0400 Diastolic blood pressure 80 mm[Hg] Dr. Britta Acevedo Work Phone: [facility] Work Phone: 05-26-2022 13:53-0400 Systolic blood pressure 140 mm[Hg] Dr. Britta Acevedo Work Phone: [facility] Work Phone: 04-26-2022 15:03-0400 Body height 165.[address] Britta Acevedo Work Phone: [facility] Work Phone: 04-26-2022 15:03-0400 Body mass index (BMI) [Ratio] 24.8 kg/m2 Dr. Britta Acevedo Work Phone: [facility] Work Phone: 04-26-2022 15:03-0400 Body weight 67.[address] Britta Acevedo Work Phone: [facility] Work Phone: 04-26-2022 15:03-0400 Diastolic blood pressure 79 mm[Hg] Dr. Britta Acevedo Work Phone: [facility] Work Phone: 04-26-2022 15:03-0400 Systolic blood pressure 129 mm[Hg] Dr. Britta Acevedo Work Phone: [facility] Work Phone: 04-16-2022 14:22-0400 Body temperature 97.8 [degF] Dr. Britta Acevedo Work Phone: [facility] Work Phone: 04-16-2022 14:22-0400 Diastolic blood pressure 67 mm[Hg] Dr. Britta Acevedo Work Phone: [facility] Work Phone: 04-16-2022 14:22-0400 Heart rate 81 /min Dr. Britta Acevedo Work Phone: [facility] Work Phone: 04-16-2022 14:22-0400 Respiratory rate 16 /min Dr. Britta Acevedo Work Phone: [facility] Work Phone: 04-16-2022 14:22-0400 SaO2% (BldA) [Mass fraction] 96 % Dr. Britta Acevedo Work Phone: [facility] Work Phone: 04-16-2022 14:22-0400 Systolic blood pressure 111 mm[Hg] Dr. Britta Acevedo Work Phone: [facility] Work Phone: 04-14-2022 10:22-0400 Body height 165.[address] Britta Acevedo Work Phone: [facility] Work Phone: 04-14-2022 10:22-0400 Body mass index (BMI) [Ratio] 26.4 kg/m2 Dr. Britta Acevedo Work Phone: [facility] Work Phone: 04-14-2022 10:22-0400 Body weight 72.[address] Britta Acevedo Work Phone: [facility] Work Phone: 04-08-2022 09:43-0400 Body height 165.[address] Britta Acevedo Work Phone: [facility] Work Phone: 04-08-2022 09:43-0400 Body mass index (BMI) [Ratio] 26.5 kg/m2 Dr. Britta Acevedo Work Phone: [facility] Work Phone: 04-08-2022 09:43-0400 Body weight 72.[address] Britta Acevedo Work Phone: [facility] Work Phone: 04-08-2022 09:43-0400 Diastolic blood pressure 72 mm[Hg] Dr. Birtta Acevedo Work Phone: [facility] Work Phone: 04-08-2022 09:43-0400 Systolic blood pressure 118 mm[Hg] Dr. Britta Acevedo Work Phone: [facility] Work Phone: 04-01-2022 15:52-0400 Body height 165.[address] Britta Acevedo Work Phone: [facility] Work Phone: 04-01-2022 15:51-0400 Body mass index (BMI) [Ratio] 26.6 kg/m2 Dr. Britta Acevedo Work Phone: [facility] Work Phone: 04-01-2022 15:51-0400 Body weight 72.[address] Britta Acevedo Work Phone: [facility] Work Phone: 04-01-2022 15:51-0400 Diastolic blood pressure 72 mm[Hg] Dr. Britta Acevedo Work Phone: [facility] Work Phone: 04-01-2022 15:51-0400 Systolic blood pressure 120 mm[Hg] Dr. Britta Acevedo Work Phone: [facility] Work Phone: 03-25-2022 14:50-0400 Body mass index (BMI) [Ratio] 26.2 kg/m2 Dr. Britta Acevedo Work Phone: [facility] Work Phone: 03-25-2022 14:50-0400 Body weight 71.[address] Britta Acevedo Work Phone: [facility] Work Phone: 03-25-2022 14:50-0400 Diastolic blood pressure 74 mm[Hg] Dr. Britta Acevedo Work Phone: [facility] Work Phone: 03-25-2022 14:50-0400 Systolic blood pressure 110 mm[Hg] Dr. Britta Acevedo Work Phone: [facility] Work Phone: 03-09-2022 15:49-0400 Body mass index (BMI) [Ratio] 26.1 kg/m2 Dr. Britta Acevedo Work Phone: [facility] Work Phone: 03-09-2022 15:49-0400 Body weight 71.[address] Britta Acevedo Work Phone: [facility] Work Phone: 03-09-2022 15:49-0400 Diastolic blood pressure 60 mm[Hg] Dr. Britta Acevedo Work Phone: [facility] Work Phone: 03-09-2022 15:49-0400 Systolic blood pressure 112 mm[Hg] Dr. Britta Acevedo Work Phone: [facility] Work Phone: 02-25-2022 15:41-0400 Body mass index (BMI) [Ratio] 30.8 kg/m2 Dr. Britta Acevedo Work Phone: [facility] Work Phone: 02-25-2022 15:41-0400 Body weight 71.[address] Britta Acevedo Work Phone: [facility] Work Phone: 02-25-2022 15:41-0400 Diastolic blood pressure 62 mm[Hg] Dr. Britta Acevedo Work Phone: [facility] Work Phone: 02-25-2022 15:41-0400 Systolic blood pressure 124 mm[Hg] Dr. Britta Acevedo Work Phone: [facility] Work Phone: 02-11-2022 16:03-0400 Body mass index (BMI) [Ratio] 29.9 kg/m2 Dr. Britta Acevedo Work Phone: [facility] Work Phone: 02-11-2022 16:03-0400 Body weight 69.[address] Britta Acevedo Work Phone: [facility] Work Phone: 02-11-2022 16:03-0400 Diastolic blood pressure 76 mm[Hg] Dr. Britta Acevedo Work Phone: [facility] Work Phone: 02-11-2022 16:03-0400 Systolic blood pressure 112 mm[Hg] Dr. Britta Acevedo Work Phone: [facility] Work Phone: 01-26-2022 15:28-0400 Body height 152.[address] Britta Acevedo Work Phone: [facility] Work Phone: 01-26-2022 15:28-0400 Body mass index (BMI) [Ratio] 29.2 kg/m2 Dr. Britta Acevedo Work Phone: [facility] Work Phone: 01-26-2022 15:28-0400 Body weight 67.[address] Britta Acevedo Work Phone: [facility] Work Phone: 01-26-2022 15:28-0400 Diastolic blood pressure 76 mm[Hg] Dr. Britta Acevedo Work Phone: [facility] Work Phone: 01-26-2022 15:28-0400 Systolic blood pressure 126 mm[Hg] Dr. Britta Acevedo Work Phone: [facility] Work Phone: 12-24-2021 10:50-0400 Body mass index (BMI) [Ratio] 28.9 kg/m2 Dr. Britta Acevedo Work Phone: [facility] Work Phone: 12-24-2021 10:50-0400 Body weight 67.[address] Britta Acevedo Work Phone: [facility] Work Phone: 12-24-2021 10:50-0400 Diastolic blood pressure 78 mm[Hg] Dr. Britta Acevedo Work Phone: [facility] Work Phone: 12-24-2021 10:50-0400 Systolic blood pressure 118 mm[Hg] Dr. Britta Acevedo Work Phone: [facility] Work Phone: 11-26-2021 16:04-0400 Body mass index (BMI) [Ratio] 23.8 kg/m2 Dr. Britta Acevedo Work Phone: [facility] Work Phone: 11-26-2021 16:04-0400 Body weight 64.[address] Britta Acevedo Work Phone: [facility] Work Phone: 11-26-2021 16:04-0400 Diastolic blood pressure 70 mm[Hg] Dr. Britta Acevedo Work Phone: [facility] Work Phone: 11-26-2021 16:04-0400 Systolic blood pressure 114 mm[Hg] Dr. Britta Acevedo Work Phone: [facility] Work Phone: 10-29-2021 15:52-0400 Body mass index (BMI) [Ratio] 24 kg/m2 Dr. Britta Acevedo Work Phone: [facility] Work Phone: 10-29-2021 15:52-0400 Body weight 65.[address] Britta Acevedo Work Phone: [facility] Work Phone: 10-29-2021 15:52-0400 Diastolic blood pressure 78 mm[Hg] Dr. Britta Acevedo Work Phone: [facility] Work Phone: 10-29-2021 15:52-0400 Systolic blood pressure 118 mm[Hg] Dr. Britta Acevedo Work Phone: [facility] Work Phone: 10-29-2021 15:52-0400 Body height 165.[address] Britta Acevedo Work Phone: [facility] Work Phone: 10-29-2021 15:52-0400 Body mass index (BMI) [Ratio] 24 kg/m2 Dr. Britta Acevedo Work Phone: [facility] Work Phone: 10-29-2021 15:52-0400 Body weight 65.[address] rBitta Acevedo Work Phone: [facility] Work Phone: 10-29-2021 15:52-0400 Diastolic blood pressure 78 mm[Hg] Dr. Britta Acevedo Work Phone: [facility] Work Phone: 10-29-2021 15:52-0400 Systolic blood pressure 118 mm[Hg] Dr. Britta Acevedo Work Phone: [facility] Work Phone: 10-01-2021 15:22-0500 Body mass index (BMI) [Ratio] 23.9 kg/m2 Dr. Britta Acevedo Work Phone: [facility] Work Phone: 10-01-2021 15:22-0500 Body weight 65.[address] Britta Acevedo Work Phone: [facility] Work Phone: 10-01-2021 15:22-0500 Diastolic blood pressure 80 mm[Hg] Dr. Britta Acevedo Work Phone: [facility] Work Phone: 10-01-2021 15:22-0500 Systolic blood pressure 114 mm[Hg] Dr. Britta Acevedo Work Phone: [facility] Work Phone: 10-01-2021 14:22-0500 Body mass index (BMI) [Ratio] 23.9 kg/m2 Dr. Britta Acevedo Work Phone: [facility] Work Phone: 10-01-2021 14:22-0500 Body weight 65.[address] Britta Acevedo Work Phone: [facility] Work Phone: 10-01-2021 14:22-0500 Diastolic blood pressure 80 mm[Hg] Dr. Britta Acevedo Work Phone: [facility] Work Phone: 10-01-2021 14:22-0500 Systolic blood pressure 114 mm[Hg] Dr. Britta Acevedo Work Phone: [facility] Work Phone: 09-16-2021 10:20-0500 Diastolic blood pressure 86 mm[Hg] Dr. Britta Acevedo Work Phone: [facility] Work Phone: 09-16-2021 10:20-0500 Systolic blood pressure 120 mm[Hg] Dr. Britta Acevedo Work Phone: [facility] Work Phone: 09-16-2021 10:12-0500 Body mass index (BMI) [Ratio] 23.1 kg/m2 Dr. Britta Acevedo Work Phone: [facility] Work Phone: 09-16-2021 10:12-0500 Body weight 63.[address] Britta Acevedo Work Phone: [facility] Work Phone: 09-09-2021 14:33-0500 Body mass index (BMI) [Ratio] 23.3 kg/m2 Dr. Britta Acevedo Work Phone: [facility] Work Phone: 09-09-2021 14:33-0500 Body weight 63.[address] Britta Acevedo Work Phone: [facility] Work Phone: 06-30-2017 13:12-0500 BMI (Body Mass Index) 21.8 kg/m2 Sonya Benoit [place] [facility] 06-30-2017 13:12-0500 BP Diastolic 75 mm[Hg] Sonya Benoit [place] [facility] 06-30-2017 13:12-0500 BP Systolic 125 mm[Hg] Sonya Benoit MD [facility] 06-30-2017 13:12-0500 Height 165.1 cm Sonya Benoit MD [facility] 06-30-2017 13:12-0500 Weight 59.42 kg Sonya Benoit MD [facility] 12-13-2016 08:07-0400 BMI (Body Mass Index) 21.97 kg/m2 Louisa Slarb [employer] [facility] Work Phone: 12-13-2016 08:07-0400 Body Temperature 98.1 [degF] Louisa Slarb [employer] [facility] Work Phone: 12-13-2016 08:07-0400 Body weight 59.88 kg Louisa Slarb [employer] [facility] Work Phone: 12-13-2016 08:07-0400 BP Diastolic 72 mm[Hg] Louisa Slarb [employer] [facility] Work Phone: Comment on above: Patient Position: Sitting; Cuff Location : Left Arm; Cuff Size: Standard 12-13-2016 08:07-0400 BP Systolic 108 mm[Hg] Louisa Foreman LPN [facility] Work Phone: Comment on above: Patient Position: Sitting; Cuff Location : Left Arm; Cuff Size: Standard 12-13-2016 08:07-0400 BSA (Body Surface Area) 1.66 m2 Louisa Foreman [employer] [facility] Work Phone: 12-13-2016 08:07-0400 Height 165.1 cm Louisa Ahsan [employer] [facility] Work Phone: 12-13-2016 08:07-0400 Pulse (Heart Rate) 65 /min Louisa Stephanerb [employer] [facility] Work Phone: Comment on above: Pattern: Regular 12-13-2016 08:07-0400 Pulse Oximetry 99 % Britta Acevedo [facility] Work Phone: Comment on above: Room air 12-13-2016 08:07-0400 Respiratory Rate 16 /min Louisa Foreman [employer] [facility] Work Phone: Comment on above: Pattern: Unlabored 12-13-2016 08:07-0400 SaO2% (BldA) [Mass fraction] 99 % Louisa Calderónrb [employer] [facility]; [facility] Work Phone: Comment on above: Room air 01-08-2016 08:45-0400 BMI (Body Mass Index) 21.3 kg/m2 Kate Fischer [facility] Work Phone: 01-08-2016 08:45-0400 Body Temperature 96.9 [degF] Kate Fischer [facility] Work Phone: Comment on above: Method: Temporal 01-08-2016 08:45-0400 Body weight 58.06 kg Kate Fischer [facility] Work Phone: 01-08-2016 08:45-0400 BP Diastolic 76 mm[Hg] Kate Fischer [facility] Work Phone: Comment on above: Patient Position: Sitting; Cuff Location : Left Arm; Cuff Size: Standard 01-08-2016 08:45-0400 BP Systolic 110 mm[Hg] Kate Aaliyah [facility] Work Phone: Comment on above: Patient Position: Sitting; Cuff Location : Left Arm; Cuff Size: Standard 01-08-2016 08:45-0400 BSA (Body Surface Area) 1.64 m2 Kate Aaliyah [facility] Work Phone: 01-08-2016 08:45-0400 Height 165.1 cm Kate Aaliyah [facility] Work Phone: 01-08-2016 08:45-0400 Pulse (Heart Rate) 56 /min Kate Aaliyah [facility] Work Phone: Comment on above: Pattern: Regular 01-08-2016 08:45-0400 Pulse Oximetry 98 % Britta Acevedo [facility] Work Phone: Comment on above: Room air 01-08-2016 08:45-0400 Respiratory Rate 16 /min Kate Aaliyah [facility] Work Phone: Comment on above: Pattern: Unlabored 01-08-2016 08:45-0400 SaO2% (BldA) [Mass fraction] 98 % Kate Fischer [facility]; [facility] Work Phone: Comment on above: Room air 12-04-2015 11:16-0400 BMI (Body Mass Index) 21.47 kg/m2 Kate Fischer [facility] Work Phone: 12-04-2015 11:16-0400 Body Temperature 97.4 [degF] Kate Aaliyah [facility] Work Phone: Comment on above: Method: Temporal 12-04-2015 11:16-0400 Body weight 58.51 kg Kate Aaliyah [facility] Work Phone: 12-04-2015 11:16-0400 BP Diastolic 78 mm[Hg] Kate Fischer [facility] Work Phone: Comment on above: Patient Position: Sitting; Cuff Location : Left Arm; Cuff Size: Standard 12-04-2015 11:16-0400 BP Systolic 100 mm[Hg] Kate Fischer [facility] Work Phone: Comment on above: Patient Position: Sitting; Cuff Location : Left Arm; Cuff Size: Standard 12-04-2015 11:16-0400 BSA (Body Surface Area) 1.64 m2 Kate Gaytanrosi [facility] Work Phone: 12-04-2015 11:16-0400 Height 165.1 cm Kate Gaytanrosi [facility] Work Phone: 12-04-2015 11:16-0400 Pulse (Heart Rate) 52 /min Kate Fischer [facility] Work Phone: Comment on above: Pattern: Regular 12-04-2015 11:16-0400 Respiratory Rate 15 /min Kate Gaytanrosi [facility] Work Phone: Comment on above: Pattern: Unlabored 02-23-2015 09:12-0400 BMI (Body Mass Index) 23.63 kg/m2 Kate Lagosgasper [facility] Work Phone: 02-23-2015 09:12-0400 Body Temperature 97.2 [degF] Kate Fischer [facility] Work Phone: Comment on above: Method: Oral 02-23-2015 09:12-0400 Body weight 64.41 kg Kate Gaytanrosi [facility] Work Phone: 02-23-2015 09:12-0400 BP Diastolic 76 mm[Hg] Kate Gaytanrosi [facility] Work Phone: Comment on above: Patient Position: Sitting; Cuff Location : Left Arm; Cuff Size: Standard 02-23-2015 09:12-0400 BP Systolic 102 mm[Hg] Kate Lagosgasper [facility] Work Phone: Comment on above: Patient Position: Sitting; Cuff Location : Left Arm; Cuff Size: Standard 02-23-2015 09:12-0400 BSA (Body Surface Area) 1.71 m2 Kate Fischer [facility] Work Phone: 02-23-2015 09:12-0400 Height 165.1 cm Kate Fischer [facility] Work Phone: 02-23-2015 09:12-0400 Pulse (Heart Rate) 74 /min Kate Fischer [facility] Work Phone: Comment on above: Pattern: Regular 02-23-2015 09:12-0400 Respiratory Rate 16 /min Kate Fischer [facility] Work Phone: Comment on above: Pattern: Unlabored 10-24-2014 07:10-0400 BMI (Body Mass Index) 23.96 kg/m2 Kate Fischer [facility] Work Phone: 10-24-2014 07:10-0400 Body Temperature 98.3 [degF] Kate Fischer [facility] Work Phone: 10-24-2014 07:10-0400 Body weight 65.32 kg Kate Ficsher [facility] Work Phone: 10-24-2014 07:10-0400 BP Diastolic 72 mm[Hg] Kate Fischer [facility] Work Phone: Comment on above: Patient Position: Sitting; Cuff Location : Left Arm; Cuff Size: Standard 10-24-2014 07:10-0400 BP Systolic 108 mm[Hg] Kate Fischer [facility] Work Phone: Comment on above: Patient Position: Sitting; Cuff Location : Left Arm; Cuff Size: Standard 10-24-2014 07:10-0400 BSA (Body Surface Area) 1.72 m2 Kate Fischer [facility] Work Phone: 10-24-2014 07:10-0400 Height 165.1 cm Kate Fischer [facility] Work Phone: 10-24-2014 07:10-0400 Pulse (Heart Rate) 70 /min Kate Fischer [facility] Work Phone: Comment on above: Pattern: Regular 10-24-2014 07:10-0400 Respiratory Rate 16 /min Kate Fischer [facility] Work Phone: Comment on above: Pattern: Unlabored 06-16-2014 15:31-0500 BMI (Body Mass Index) 24.85 kg/m2 Britta Acevedo [facility] Work Phone: 06-16-2014 15:31-0500 Body Temperature 97.6 [degF] Britta Acevedo [facility] Work Phone: Comment on above: Method: Oral 06-16-2014 15:31-0500 Body weight 67.73 kg Britta Acevedo [facility] Work Phone: 06-16-2014 15:31-0500 BP Diastolic 72 mm[Hg] Britta Acevedo [facility] Work Phone: Comment on above: Patient Position: Sitting; Cuff Location : Left Arm; Cuff Size: Standard 06-16-2014 15:31-0500 BP Systolic 116 mm[Hg] Britta Acevedo [facility] Work Phone: Comment on above: Patient Position: Sitting; Cuff Location : Left Arm; Cuff Size: Standard 06-16-2014 15:31-0500 BSA (Body Surface Area) 1.75 m2 Britta Acevedo [facility] Work Phone: 06-16-2014 15:31-0500 Height 165.1 cm Britta Acevedo [facility] Work Phone: 06-16-2014 15:31-0500 Pulse (Heart Rate) 74 /min Britta Acevedo [facility] Work Phone: Comment on above: Pattern: Regular 06-16-2014 15:31-0500 Pulse Oximetry 99 % Britta Acevedo [facility] Work Phone: Comment on above: Room air 06-16-2014 15:31-0500 Respiratory Rate 15 /min Britta Acevedo [facility] Work Phone: 06-16-2014 15:31-0500 SaO2% (BldA) [Mass fraction] 99 % Britta Acevedo DO Work Phone: [facility]; [facility] Work Phone: Comment on above: Room air 05-13-2014 12:02-0400 BMI (Body Mass Index) 24.85 kg/m2 [facility] Work Phone: 05-13-2014 12:02-0400 Body Temperature 97.1 [degF] [facility] Work Phone: Comment on above: Method: Oral 05-13-2014 12:02040 Body weight 67.73 kg [facility] Work Phone: 05-13-2014 12:02-0400 BP Diastolic 64 mm[Hg] [facility] Work Phone: Comment on above: Patient Position: Sitting; Cuff Location : Left Arm; Cuff Size: Standard 05-13-2014 12:02-0400 BP Systolic 118 mm[Hg] [facility] Work Phone: Comment on above: Patient Position: Sitting; Cuff Location : Left Arm; Cuff Size: Standard 05-13-2014 12:02-0400 BSA (Body Surface Area) 1.75 m2 [facility] Work Phone: 05-13-2014 12:02-0400 Height 165.1 cm [facility] Work Phone: 05-13-2014 12:02-0400 Pulse (Heart Rate) 76 /min [facility] Work Phone: Comment on above: Pattern: Regular 05-13-2014 12:02-0400 Pulse Oximetry 99 % Britta Acevedo [facility] Work Phone: Comment on above: Room air 05-13-2014 12:02-0400 Respiratory Rate 18 /min [facility] Work Phone: Comment on above: Pattern: Unlabored 05-13-2014 12:02-0400 SaO2% (BldA) [Mass fraction] 99 % [facility] Internal Medicine; [facility] Work Phone: Comment on above: Room air 04-02-2014 13:17-0400 BMI (Body Mass Index) 24.79 kg/m2 Chantal Go [facility] Internal Medicine Work Phone: 04-02-2014 13:17-0400 Body Temperature 97 [degF] Chantal Go [facility] Internal Medicine Work Phone: Comment on above: Method: Oral 04-02-2014 13:170400 Body weight 67.59 kg Chantal Go [facility] Internal Medicine Work Phone: 04-02-2014 13:17-0400 BP Diastolic 68 mm[Hg] Chantal Go [facility] Internal Medicine Work Phone: Comment on above: Patient Position: Sitting; Cuff Location : Left Arm; Cuff Size: Standard 04-02-2014 13:17-0400 BP Systolic 115 mm[Hg] Chantal Go [facility] Internal Medicine Work Phone: Comment on above: Patient Position: Sitting; Cuff Location : Left Arm; Cuff Size: Standard 04-02-2014 13:170400 BSA (Body Surface Area) 1.75 m2 Chantal Go [facility] Internal Medicine Work Phone: 04-02-2014 13:170400 Height 165.1 cm Chantal Go [facility] Internal Medicine Work Phone: 04-02-2014 13:17-0400 Pulse (Heart Rate) 68 /min Chantal Go [facility] Internal Medicine Work Phone: Comment on above: Pattern: Regular 04-02-2014 13:17-0400 Pulse Oximetry 98 % Britta Acevedo [facility] Internal Medicine Work Phone: Comment on above: Room air 04-02-2014 13:17-0400 Respiratory Rate 16 /min Chantal Go [facility] Internal Medicine Work Phone: Comment on above: Pattern: Unlabored 04-02-2014 13:17-0400 SaO2% (BldA) [Mass fraction] 98 % Chantal Go [facility] Internal Medicine; [facility] Work Phone: Comment on above: Room air 03-21-2014 13:34-0400 BMI (Body Mass Index) 24.79 kg/m2 Chantal Go [facility] Internal Medicine Work Phone: 03-21-2014 13:34-0400 Body Temperature 98.2 [degF] Chantal Go [facility] Internal Medicine Work Phone: Comment on above: Method: Oral 03-21-2014 13:34-0400 Body weight 67.59 kg Chantal Go [facility] Internal Medicine Work Phone: 03-21-2014 13:34-0400 BP Diastolic 62 mm[Hg] Chantal Go [facility] Internal Medicine Work Phone: Comment on above: Patient Position: Sitting; Cuff Location : Left Arm; Cuff Size: Standard 03-21-2014 13:34-0400 BP Systolic 102 mm[Hg] Chantal Go [facility] Internal Medicine Work Phone: Comment on above: Patient Position: Sitting; Cuff Location : Left Arm; Cuff Size: Standard 03-21-2014 13:34-0400 BSA (Body Surface Area) 1.75 m2 Chantal Go [facility] Internal Medicine Work Phone: 03-21-2014 13:34-0400 Height 165.1 cm Chantal Go [facility] Internal Medicine Work Phone: 03-21-2014 13:34-0400 Pulse (Heart Rate) 68 /min Chantal Go [facility] Internal Medicine Work Phone: Comment on above: Pattern: Regular 03-21-2014 13:34-0400 Pulse Oximetry 98 % Britta Curtis [facility] Internal Medicine Work Phone: Comment on above: Room air 03-21-2014 13:34-0400 Respiratory Rate 16 /min Chantal Go [facility] Internal Medicine Work Phone: Comment on above: Pattern: Unlabored 03-21-2014 13:34-0400 SaO2% (BldA) [Mass fraction] 98 % Chantal Go [facility] Internal Medicine; [facility] Work Phone: Comment on above: Room air 05-22-2013 15:31-0400 BMI (Body Mass Index) 23.63 kg/m2 Chantal Go [facility] Internal Medicine Work Phone: 05-22-2013 15:31-0400 Body weight 64.41 kg Chantal Go [facility] Internal Medicine Work Phone: 05-22-2013 15:31-0400 BP Diastolic 68 mm[Hg] Chantal Go [facility] Internal Medicine Work Phone: Comment on above: Patient Position: Sitting; Cuff Location : Left Arm; Cuff Size: Standard 05-22-2013 15:31-0400 BP Systolic 116 mm[Hg] Chantal Go [facility] Internal Medicine Work Phone: Comment on above: Patient Position: Sitting; Cuff Location : Left Arm; Cuff Size: Standard 05-22-2013 15:31-0400 BSA (Body Surface Area) 1.71 m2 Chantal Go [facility] Internal Medicine Work Phone: 05-22-2013 15:31-0400 Height 165.1 cm Chantal Go [facility] Internal Medicine Work Phone: 05-22-2013 15:31-0400 Pulse (Heart Rate) 68 /min Chantal Go [facility] Internal Medicine Work Phone: Comment on above: Pattern: Regular 05-22-2013 15:31-0400 Respiratory Rate 16 /min Chantal Go [facility] Internal Medicine Work Phone: Comment on above: Pattern: Unlabored 08-03-2012 15:20-0500 BMI (Body Mass Index) 23.63 kg/m2 Britta Acevedo [facility] Internal Medicine Work Phone: 08-03-2012 15:20-0500 Body Temperature 98.9 [degF] [facility]: Comment on above: Method: Oral 08-03-2012 15:20-0500 Body weight 64.41 kg Britta Acevedo [facility] Internal Medicine Work Phone: 08-03-2012 15:20-0500 BP Diastolic 68 mm[Hg] Britta Acevedo [facility] Internal Medicine Work Phone: Comment on above: Patient Position: Sitting; Cuff Location : Left Arm; Cuff Size: Standard 08-03-2012 15:20-0500 BP Systolic 110 mm[Hg] Britta Acevedo [facility] Internal Medicine Work Phone: Comment on above: Patient Position: Sitting; Cuff Location : Left Arm; Cuff Size: Standard 08-03-2012 15:20-0500 BSA (Body Surface Area) 1.71 m2 rBitta Acevedo [facility] Internal Medicine Work Phone: 08-03-2012 15:20-0500 Height 165.1 cm Britta Acevedo [facility] Internal Medicine Work Phone: 08-03-2012 15:20-0500 Pulse (Heart Rate) 80 /min Britta Acevedo [facility] Internal Medicine Work Phone: Comment on above: Pattern: Regular 08-03-2012 15:20-0500 Pulse Oximetry 98 % Britta Acevedo [facility] Internal Medicine Work Phone: Comment on [...] Body weight 64.41 kg VEGA Gutierrez LPN [facility] Internal Medicine Work Phone: 07-12-2012 07:33-0500 BP Diastolic 68 mm[Hg] VEGA Gutierrez LPN [facility] Internal Medicine Work Phone: Comment on above: Patient Position: Sitting; Cuff Location : Left Arm; Cuff Size: Standard 07-12-2012 07:33-0500 BP Systolic 100 mm[Hg] VEGA Gutierrez LPN [facility] Internal Medicine Work Phone: Comment on above: Patient Position: Sitting; Cuff Location : Left Arm; Cuff Size: Standard 07-12-2012 07:33-0500 BSA (Body Surface Area) 1.71 m2 VEGA Gutierrez LPN [facility] Internal Medicine Work Phone: 07-12-2012 07:33-0500 Height 165.1 cm VEGA Gutierrez LPN [facility] Internal Medicine Work Phone: 07-12-2012 07:33-0500 Pulse (Heart Rate) 74 /min VEGA Gutierrez LPN [facility] Work Phone: Comment on above: Pattern: Regular 07-12-2012 07:33-0500 Respiratory Rate 18 /min VEGA Gutierrez LPN [facility] Work Phone: Comment on above: Pattern: Unlabored 06-22-2012 08:46-0500 BMI (Body Mass Index) 23.68 kg/m2 Britta Acevedo [facility] Internal Medicine Work Phone: 06-22-2012 08:46-0500 Body Temperature 98.8 [degF] Britta Acevedo [facility] Internal Medicine Work Phone: Comment on above: Method: Oral 06-22-2012 08:46-0500 Body weight 64.55 kg Britta Acevedo [facility] Internal Medicine Work Phone: 06-22-2012 08:46-0500 BP Diastolic 70 mm[Hg] Britta Acevedo [facility] Internal Medicine Work Phone: Comment on above: Patient Position: Sitting; Cuff Location : Left Arm; Cuff Size: Standard 06-22-2012 08:46-0500 BP Systolic 110 mm[Hg] Britta Acevedo [facility] Internal Medicine Work Phone: Comment on above: Patient Position: Sitting; Cuff Location : Left Arm; Cuff Size: Standard 06-22-2012 08:46-0500 BSA (Body Surface Area) 1.71 m2 Britta Acevedo [facility] Internal Medicine Work Phone: 06-22-2012 08:46-0500 Height 165.1 cm Britta Acevedo [facility] Internal Medicine Work Phone: 06-22-2012 08:46-0500 Pulse (Heart Rate) 72 /min Britta Acevedo [facility] Internal Medicine Work Phone: Comment on above: Pattern: Regular 06-22-2012 08:46-0500 Respiratory Rate 16 /min Britta Acevedo [facility] Internal Medicine Work Phone: Comment on above: Pattern: Unlabored 10-24-2011 10:09-0400 BMI (Body Mass Index) 23.68 kg/m2 Britta Acevedo [facility] Internal Medicine Work Phone: 10-24-2011 10:09-0400 Body Temperature 98.7 [degF] Britta Acevedo [facility] Internal Medicine Work Phone: Comment on above: Method: Oral 10-24-2011 10:09-0400 Body weight 64.55 kg Britta Acevedo [facility] Internal Medicine Work Phone: 10-24-2011 10:09-0400 BP Diastolic 72 mm[Hg] Britta Acevedo [facility] Internal Medicine Work Phone: Comment on above: Patient Position: Sitting; Cuff Location : Left Arm; Cuff Size: Standard 10-24-2011 10:09-0400 BP Systolic 112 mm[Hg] Britta Acevedo [facility] Internal Medicine Work Phone: Comment on above: Patient Position: Sitting; Cuff Location : Left Arm; Cuff Size: Standard 10-24-2011 10:09-0400 BSA (Body Surface Area) 1.71 m2 Britta Acevedo [facility] Internal Medicine Work Phone: 10-24-2011 10:09-0400 Height 165.1 cm Britta Acevedo [facility] Work Phone: 10-24-2011 10:09-0400 Pulse (Heart Rate) 88 /min Britta Acevedo [facility] Internal Medicine Work Phone: Comment on above: Pattern: Regular 10-24-2011 10:09-0400 Pulse Oximetry 98 % Britta Acevedo [facility] Internal Medicine Work Phone: Comment on above: Room air 10-24-2011 10:09-0400 Respiratory Rate 16 /min Britta Acevedo [facility] Internal Medicine Work Phone: 10-24-2011 10:09-0400 SaO2% (BldA) [Mass fraction] 98 % Britta Acevedo DO Work Phone: [facility]; [facility] Work Phone: Comment on above: Room air 07-15-2011 13:25-0500 BMI (Body Mass Index) 23.85 kg/m2 Britta Acevedo [facility] Internal Medicine Work Phone: 07-15-2011 13:25-0500 Body Temperature 97.9 [degF] Britta Acevedo [facility] Internal Medicine Work Phone: Comment on above: Method: Oral 07-15-2011 13:25-0500 Body weight 65.01 kg Britta Acevedo [facility] Internal Medicine Work Phone: 07-15-2011 13:25-0500 BP Diastolic 70 mm[Hg] Britta Acevedo [facility] Internal Medicine Work Phone: Comment on above: Patient Position: Sitting; Cuff Location : Left Arm; Cuff Size: Standard 07-15-2011 13:25-0500 BP Systolic 110 mm[Hg] Britta Acevedo [facility] Internal Medicine Work Phone: Comment on above: Patient Position: Sitting; Cuff Location : Left Arm; Cuff Size: Standard 07-15-2011 13:25-0500 BSA (Body Surface Area) 1.72 m2 Britta Acevedo [facility] Internal Medicine Work Phone: 07-15-2011 13:25-0500 Height 165.1 cm Britta Acevedo [facility] Work Phone: 07-15-2011 13:25-0500 Pulse [...] 13:21-0400 BMI (Body Mass Index) 23.85 kg/m2 Maximino Kim RN [facility] Work Phone: 02-18-2011 13:21-0400 Body weight 65.01 kg Maximino Kim RN [facility] Work Phone: 02-18-2011 13:21-0400 BP Diastolic 60 mm[Hg] Maximino Kim RN [facility] Work Phone: Comment on above: Patient Position: Sitting; Cuff Location : Left Arm; Cuff Size: Large 02-18-2011 13:21-0400 BP Systolic 102 mm[Hg] Maximino Kim RN [facility] Work Phone: Comment on above: Patient Position: Sitting; Cuff Location : Left Arm; Cuff Size: Large 02-18-2011 13:21-0400 BSA (Body Surface Area) 1.72 m2 Maximino Kim RN [facility] Work Phone: 02-18-2011 13:21-0400 Height 165.1 cm Maximino Kim RN [facility] Work Phone: 02-18-2011 13:21-0400 Pulse (Heart Rate) 68 /min Maximino Kim RN [facility] Work Phone: Comment on above: Pattern: Regular 02-18-2011 13:21-0400 Respiratory Rate 20 /min Maximino Kim RN [facility] Work Phone: Comment on above: Pattern: Unlabored 09-03-2010 11:30-0500 Body Temperature 99 [degF] No Ariza LPN [facility] Work Phone: Comment on above: Method: Oral 09-03-2010 11:30-0500 Body weight 64.41 kg No Ariza [employer] [facility] Work Phone: 09-03-2010 11:30-0500 BP Diastolic 74 mm[Hg] No Songti [employer] [facility] Work Phone: Comment on above: Patient Position: Sitting; Cuff Location : Left Arm; Cuff Size: Standard 09-03-2010 11:30-0500 BP Systolic 112 mm[Hg] No Songti [employer] [facility] Work Phone: Comment on [...] Unlabored 08-10-2010 08:39-0500 Body Temperature 97.1 [degF] Britta Acevedo [facility] Work Phone: Comment on above: Method: Oral 08-10-2010 08:39-0500 Body weight 64.41 kg Britta Acevedo [facility] Work Phone: 08-10-2010 08:39-0500 BP Diastolic 72 mm[Hg] Britta Acevedo [facility] Work Phone: Comment on above: Patient Position: Sitting; Cuff Location : Left Arm; Cuff Size: Standard 08-10-2010 08:39-0500 BP Systolic 112 mm[Hg] Britta Acevedo [facility] Internal Medicine Work Phone: Comment on above: Patient Position: Sitting; Cuff Location : Left Arm; Cuff Size: Standard 08-10-2010 08:39-0500 Pulse (Heart Rate) 76 /min Britta Acevedo [facility] Internal Medicine Work Phone: Comment on above: Pattern: Regular 08-10-2010 08:39-0500 Respiratory Rate 17 /min Britta Acevedo [facility] Internal Medicine Work Phone: Comment on above: Pattern: Unlabored 06-30-2010 11:31-0500 Body Temperature 98.3 [degF] Kate Aaliyah [facility] Internal Medicine Work Phone: 06-30-2010 11:31-0500 Body weight 64.41 kg Kate Aaliyah [facility] Internal Medicine Work Phone: 06-30-2010 11:31-0500 BP Diastolic 74 mm[Hg] Kate Aaliyah [facility] Internal Medicine Work Phone: Comment on above: Patient Position: Sitting; Cuff Location : Left Arm; Cuff Size: Standard 06-30-2010 11:31-0500 BP Systolic 110 mm[Hg] Kate Aaliyah [facility] Internal Medicine Work Phone: Comment on above: Patient Position: Sitting; Cuff Location : Left Arm; Cuff Size: Standard 06-30-2010 11:31-0500 Pulse (Heart Rate) 76 /min Kate Fischer [facility] Internal Medicine Work Phone: Comment on above: Pattern: Regular 06-30-2010 11:31-0500 Respiratory Rate 16 /min Kate Fischer [facility] Internal Medicine Work Phone: Comment on above: Pattern: Unlabored 06-07-2010 09:55-0400 Body Temperature 97.9 [degF] Kate Aaliyah [facility] Internal Medicine Work Phone: 06-07-2010 09:55-0400 Body weight 66.23 kg Kate Fischer [facility] Internal Medicine Work Phone: 06-07-2010 09:55-0400 BP Diastolic 80 mm[Hg] Kate Fischer [facility] Internal Medicine Work Phone: Comment on above: Patient Position: Sitting; Cuff Location : Left Arm; Cuff Size: Standard 06-07-2010 09:55-0400 BP Systolic 122 mm[Hg] Kate Fischer [facility] Internal Medicine Work Phone: Comment on above: Patient Position: Sitting; Cuff Location : Left Arm; Cuff Size: Standard 06-07-2010 09:55-0400 Pulse (Heart Rate) 72 /min Kate Fischer [facility] Work Phone: Comment on above: Pattern: Regular 06-07-2010 09:55-0400 Respiratory Rate 18 /min Kate Fischer [facility] Internal Medicine Work Phone: Comment on above: Pattern: Unlabored 05-21-2010 09:10-0400 Body Temperature 97.5 [degF] Kate Fischer [facility] Internal Medicine Work Phone: 05-21-2010 09:10-0400 Body weight 66.23 kg Kate Fischer [facility] Internal Medicine Work Phone: 05-21-2010 09:10-0400 BP Diastolic 62 mm[Hg] Kate Fischer [facility] Internal Medicine Work Phone: Comment on above: Patient Position: Sitting; Cuff Location : Left Arm; Cuff Size: Large 05-21-2010 09:10-0400 BP Systolic 112 mm[Hg] Kate Fischer [facility] Internal Medicine Work Phone: Comment on above: Patient Position: Sitting; Cuff Location : Left Arm; Cuff Size: Large 05-21-2010 09:10-0400 Pulse (Heart Rate) 80 /min Kate Fischer [facility] Work Phone: Comment on above: Pattern: Regular 05-21-2010 09:10-0400 Respiratory Rate 16 /min Kate Fischer [facility] Internal Medicine Work Phone: Comment on above: Pattern: Unlabored 11-09-2009 14:43-0400 Body Temperature 98 [degF] Maximino Kim RN [facility] Work Phone: Comment on above: Method: Oral 11-09-2009 14:43-0400 BP Diastolic 78 mm[Hg] Maximino Kim RN [facility] Work Phone: Comment on above: Patient Position: Sitting; Cuff Location : Left Arm; Cuff Size: Large 11-09-2009 14:43-0400 BP Systolic 122 mm[Hg] Maximino Kim RN [facility] Work Phone: Comment on above: Patient Position: Sitting; Cuff Location : Left Arm; Cuff Size: Large 11-09-2009 14:43-0400 Pulse (Heart Rate) 64 /min Maximino Kim RN [facility] Work Phone: Comment on above: Pattern: Regular 11-09-2009 14:43-0400 Respiratory Rate 20 /min Maximino Kim RN [facility] Work [...] 02-10-2009 09:09-0400 Body Temperature 98.1 [degF] Kate Aaliyah [facility] Internal Medicine Work Phone: Comment on above: Method: Undefined 02-10-2009 09:09-0400 Body weight 65.32 kg Kate Fischer [facility] Internal Medicine Work Phone: 02-10-2009 09:09-0400 BP Diastolic 76 mm[Hg] Kate Fischer [facility] Work Phone: Comment on above: Patient Position: Sitting; Cuff Location : Left Arm; Cuff Size: Standard 02-10-2009 09:09-0400 BP Systolic 120 mm[Hg] Kate Fischer [facility] Work Phone: Comment on above: Patient Position: Sitting; Cuff Location : Left Arm; Cuff Size: Standard 02-10-2009 09:09-0400 Head Circumference 0 cm Britta Rajputon [facility] Work Phone: 02-10-2009 09:09-0400 Head Occipital-frontal circumference 0 cm Kate Fischer [facility] Internal Medicine; [facility] Work Phone: 02-10-2009 09:09-0400 Height 0 cm Kate Fischer [facility] Work Phone: 02-10-2009 09:09-0400 Pulse (Heart Rate) 80 /min Kate Fischer [facility] Work Phone: Comment on above: Pattern: Regular 02-10-2009 09:09-0400 Respiratory Rate 16 /min Kate Fischer [facility] Work Phone: Comment on above: Pattern: Undefined 11-10-2008 15:31-0400 Body Temperature 98.3 [degF] Kate Fischer [facility] Internal Medicine Work Phone: Comment on above: Method: Undefined 11-10-2008 15:31-0400 Body weight 0 kg Kate Fischer [facility] Internal Medicine Work Phone: 11-10-2008 15:31-0400 BP Diastolic 58 mm[Hg] Kate Fischer [facility] Internal Medicine Work Phone: Comment on above: Patient Position: Sitting; Cuff Location : Left Arm; Cuff Size: Large 11-10-2008 15:31-0400 BP Systolic 112 mm[Hg] Kate Fischer [facility] Internal Medicine Work Phone: Comment on above: Patient Position: Sitting; Cuff Location : Left Arm; Cuff Size: Large 11-10-2008 15:31-0400 Head Circumference 0 cm Britta Acevedo [facility] Internal Medicine Work Phone: 11-10-2008 15:31-0400 Head Occipital-frontal circumference 0 cm Kate Fischer [facility] Internal Medicine; [facility] Work Phone: 11-10-2008 15:31-0400 Height 0 cm Kate Fischer [facility] Internal Medicine Work Phone: 11-10-2008 15:31-0400 Pulse (Heart Rate) 100 /min Kate Fischer [facility] Work Phone: Comment on above: Pattern: Regular 11-10-2008 15:31-0400 Respiratory Rate 16 /min Kate Fischer [facility] Internal Medicine Work Phone: Comment on above: Pattern: Undefined 09-24-2008 11:53-0500 Body Temperature 98.3 [degF] Kate Fischer [facility] Internal Medicine Work Phone: Comment on above: Method: Undefined 09-24-2008 11:53-0500 Body weight 66.23 kg Kate Fischer [facility] Internal Medicine Work Phone: 09-24-2008 11:53-0500 BP Diastolic 74 mm[Hg] Kate Fischer [facility] Internal Medicine Work Phone: Comment on above: Patient Position: Sitting; Cuff Location : Right Arm; Cuff Size: Standard 09-24-2008 11:53-0500 BP Systolic 120 mm[Hg] Kate Fischer [facility] Internal Medicine Work Phone: Comment on above: Patient Position: Sitting; Cuff Location : Right Arm; Cuff Size: Standard 09-24-2008 11:53-0500 Head Circumference 0 cm Britta Acevedo [facility] Internal Medicine Work Phone: 09-24-2008 11:53-0500 Head Occipital-frontal circumference 0 cm Kate Fischer [facility] Internal Medicine; [facility] Internal Medicine Work Phone: 09-24-2008 11:53-0500 Height 0 cm Kate Fischer [facility] Internal Medicine Work Phone: 09-24-2008 11:53-0500 Pulse (Heart Rate) 76 /min Kate Fischer [facility] Internal Medicine Work Phone: Comment on above: Pattern: Regular 09-24-2008 11:53-0500 Respiratory Rate 16 /min Kate Fischer [facility] Internal Medicine Work Phone: Comment on above: Pattern: Undefined 09-08-2008 10:53-0500 Body Temperature 98.3 [degF] Kate Fischer [facility] Internal Medicine Work Phone: Comment on above: Method: Undefined 09-08-2008 10:53-0500 Body weight 66.23 kg Kate Fischer [facility] Internal Medicine Work Phone: 09-08-2008 10:53-0500 BP Diastolic 62 mm[Hg] Kate Fischer [facility] Internal Medicine Work Phone: Comment on above: Patient Position: Sitting; Cuff Location : Right Arm; Cuff Size: Large 09-08-2008 10:53-0500 BP Systolic 112 mm[Hg] Kate Lagosgasper [facility] Internal Medicine Work Phone: Comment on above: Patient Position: Sitting; Cuff Location : Right Arm; Cuff Size: Large 09-08-2008 10:53-0500 Head Circumference 0 cm Britta Acevedo [facility] Internal Medicine Work Phone: 09-08-2008 10:53-0500 Head Occipital-frontal circumference 0 cm Kate Gaytanrosi [facility]; [facility] Work Phone: 09-08-2008 10:53-0500 Height 0 cm Kate Aaliyah [facility] Internal Medicine Work Phone: 09-08-2008 10:53-0500 Pulse (Heart Rate) 76 /min Kate Fischer [facility] Internal Medicine Work Phone: Comment on above: Pattern: Regular 09-08-2008 10:53-0500 Respiratory Rate 16 /min Kate Aaliyah [facility] Internal Medicine Work Phone: Comment on above: Pattern: Undefined 07-07-2008 14:22-0500 Body Temperature 96.7 [degF] Kate Aaliyah [facility] Internal Medicine Work Phone: Comment on above: Method: Undefined 07-07-2008 14:22-0500 Body weight 0 kg Kate Gaytanrosi [facility] Internal Medicine Work Phone: 07-07-2008 14:22-0500 BP Diastolic 62 mm[Hg] Kate Aaliyah [facility] Internal Medicine Work Phone: Comment on above: Patient Position: Sitting; Cuff Location : Right Arm; Cuff Size: Large 07-07-2008 14:22-0500 BP Systolic 114 mm[Hg] Kate Gaytanrosi [facility] Internal Medicine Work Phone: Comment on above: Patient Position: Sitting; Cuff Location : Right Arm; Cuff Size: Large 07-07-2008 14:22-0500 Head Circumference 0 cm Britta Acevedo [facility] Internal Medicine Work Phone: 07-07-2008 14:22-0500 Head Occipital-frontal circumference 0 cm Kate Aaliyah [facility]; [facility] Work Phone: 07-07-2008 14:22-0500 Height 0 cm Kateleonel Fischer [facility] Internal Medicine Work Phone: 07-07-2008 14:22-0500 Pulse (Heart Rate) 80 /min Kate Fischer [facility] Work Phone: Comment on above: Pattern: Regular 07-07-2008 14:22-0500 Respiratory Rate 16 /min Kate Fischer [facility] Internal Medicine Work Phone: Comment on above: Pattern: Undefined 06-17-2008 11:17-0500 Body Temperature 98.4 [degF] Kate Fischer [facility] Internal Medicine Work Phone: Comment on above: Method: Undefined 06-17-2008 11:17-0500 Body weight 0 kg Kate Fischer [facility] Work Phone: 06-17-2008 11:17-0500 BP Diastolic 68 mm[Hg] Kate Fischer [facility] Work Phone: Comment on above: Patient Position: Sitting; Cuff Location : Right Arm; Cuff Size: Standard 06-17-2008 11:17-0500 BP Systolic 124 mm[Hg] Kate Fischer [facility] Work Phone: Comment on above: Patient Position: Sitting; Cuff Location : Right Arm; Cuff Size: Standard 06-17-2008 11:17-0500 Head Circumference 0 cm Britta Acevedo [facility] Work Phone: 06-17-2008 11:17-0500 Head Occipital-frontal circumference 0 cm Kate Fischer [facility]; [facility] Work Phone: 06-17-2008 11:17-0500 Height 0 cm Kate Fischer [facility] Work Phone: 06-17-2008 11:17-0500 Pulse (Heart Rate) 88 /min Kate Fischer [facility] Work Phone: Comment on above: Pattern: Regular 06-17-2008 11:17-0500 Respiratory Rate 16 /min Kate Fischer [facility] Work Phone: Comment on above: Pattern: Undefined 09-11-2007 10:03-0500 Body Temperature 98.9 [degF] Kate Fischer [facility] Work Phone: Comment on above: Method: Oral 09-11-2007 10:03-0500 Body weight 0 kg Kate Fischer [facility] Work Phone: 09-11-2007 10:03-0500 BP Diastolic 60 mm[Hg] Kate Fischer [facility] Work Phone: Comment on above: Patient Position: Sitting; Cuff Location : Left Arm; Cuff Size: Standard 09-11-2007 10:03-0500 BP Systolic 90 mm[Hg] Kate Fischer [facility] Work Phone: Comment on above: Patient Position: Sitting; Cuff Location : Left Arm; Cuff Size: Standard 09-11-2007 10:03-0500 Head Circumference 0 cm Britta Curtis [facility] Work Phone: 09-11-2007 10:03-0500 Head Occipital-frontal circumference 0 cm Kate Fischer [facility]; [facility] Work Phone: 09-11-2007 10:03-0500 Height 0 cm Kate Fischer [facility] Work Phone: 09-11-2007 10:03-0500 Pulse (Heart Rate) 80 /min [facility] Work Phone: Comment on above: Pattern: Regular 09-11-2007 10:03-0500 Respiratory Rate 16 /min Kate Fischer [facility] Work Phone: Comment on above: Pattern: Unlabored 07-04-2007 08:23-0500 Body Temperature 98.2 [degF] Kate Fischer [facility] Work Phone: Comment on above: Method: Oral 07-04-2007 08:23-0500 Body weight 0 kg Kate Fischer [facility] Work Phone: 07-04-2007 08:23-0500 BP Diastolic 78 mm[Hg] Kate Fischer [facility] Work Phone: Comment on above: Patient Position: Sitting; Cuff Location : Left Arm; Cuff Size: Standard 07-04-2007 08:23-0500 BP Systolic 112 mm[Hg] Kate Fischer [facility] Work Phone: Comment on above: Patient Position: Sitting; Cuff Location : Left Arm; Cuff Size: Standard 07-04-2007 08:23-0500 Head Circumference 0 cm Britta Curtis [facility] Work Phone: 07-04-2007 08:23-0500 Head Occipital-frontal circumference 0 cm Kate Fischer [facility]; [facility] Work Phone: 07-04-2007 08:23-0500 Height 0 cm Kate Fischer [facility] Work Phone: 07-04-2007 08:23-0500 Pulse (Heart Rate) 80 /min Kate Fischer [facility] Internal Medicine Work Phone: Comment on above: Pattern: Regular 07-04-2007 08:23-0500 Respiratory Rate 16 /min Kate Fischer [facility] Work Phone: Comment on [...] 01-10-2007 10:30-0400 Head Circumference 0 cm Britta Rajputon [facility] Work Phone: 01-10-2007 10:30-0400 Head Occipital-frontal circumference 0 cm Iris Durand RN [facility]; [facility] Work Phone: 01-10-2007 10:30-0400 Height 0 cm Iris Durand RN [facility] Work Phone: 01-10-2007 10:30-0400 Respiratory Rate 16 /min Iris Durand RN [facility] Work Phone: Comment on above: Pattern: Unlabored 10-17-2006 10:58-0500 Body weight 0 kg Aishwarya Matos [facility] Work Phone: 10-17-2006 10:58-0500 BP Diastolic 64 mm[Hg] Aishwarya Vyasgett [facility] Work Phone: Comment on above: Patient Position: Sitting; Cuff Location : Left Arm; Cuff Size: Standard 10-17-2006 10:58-0500 BP Systolic 98 mm[Hg] Aishwarya Vyasgett [facility] Work Phone: Comment on above: Patient Position: Sitting; Cuff Location : Left Arm; Cuff Size: Standard 10-17-2006 10:58-0500 Head Circumference 0 cm Britta Rajputon [facility] Work Phone: 10-17-2006 10:58-0500 Head Occipital-frontal circumference 0 cm Aishwarya Matos [facility]; [facility] Work Phone: 10-17-2006 10:58-0500 Height 0 cm Aishwarya Matos [facility] Work Phone: 10-17-2006 10:58-0500 Pulse (Heart Rate) 66 /min Aishwarya Matos [facility] Work Phone: Comment on above: Pattern: Regular 10-17-2006 10:58-0500 Respiratory Rate 16 /min Aishwarya Matos [facility] Work Phone: Comment on above: Pattern: Unlabored Encounters Encounter Date Encounter Type Care Provider Facility Start: 04-17-2025 End: 04-17-2025 ambulatory Chalon Silvia Facility:[facility] Start: 04-10-2025 End: 04-10-2025 ambulatory Chalon Silvia Facility:[facility] Start: 04-04-2025 End: 04-04-2025 ambulatory Chalon Silvia Facility:[facility] Start: 04-04-2025 End: 04-04-2025 ambulatory Sonya Sellersony Facility:[facility] Start: 03-27-2025 End: 03-27-2025 ambulatory Chalon Silvia Facility:[facility] Start: 03-13-2025 End: 03-13-2025 ambulatory Chalon Silvia Facility:[facility] Start: 02-26-2025 End: 02-26-2025 ambulatory Chalon Silvia Facility:[facility] Start: 02-12-2025 End: 02-12-2025 ambulatory Chalon Silvia Facility:[facility] Start: 02-05-2025 End: 02-05-2025 ambulatory Chalon Silvia Facility:[facility] Start: 02-05-2025 End: 02-05-2025 ambulatory Chalon Silvia Facility:[facility] Start: 01-13-2025 End: 01-13-2025 ambulatory Chalon Silvia Facility:[facility] Start: 12-18-2024 End: 12-18-2024 ambulatory Chalon Silvia Facility:[facility] Start: 12-03-2024 End: 12-03-2024 ambulatory [facility] Start: 11-20-2024 End: 11-20-2024 ambulatory Chalon Silvia Facility:[facility] Start: 10-22-2024 End: 10-22-2024 ambulatory Chalon Silvia Facility:[facility] Start: 10-17-2024 End: 10-17-2024 ambulatory Chalon Silvia Facility:[facility] Start: 10-14-2024 End: 10-14-2024 ambulatory Chalon Silvia Facility:[facility] Start: 10-12-2024 End: 10-12-2024 Emergency department patient visit Clem Michael Facility:[facility] Start: 09-26-2024 End: 09-26-2024 ambulatory Chalon Silvia Facility:[facility] Start: 09-19-2024 End: 09-19-2024 ambulatory Chalon Silvia Facility:[facility] Start: 09-19-2024 End: 09-19-2024 ambulatory Chalon Silvia Facility:[facility] Start: 09-10-2024 End: 09-10-2024 ambulatory Chalon Silvia Facility:[facility] Start: 09-06-2024 ambulatory Helen Ha Facility :[facility] Start: 09-05-2024 End: 09-05-2024 ambulatory Chalon Silvia Facility:[facility] Start: 07-30-2024 End: 07-30-2024 ambulatory Chalon Silvia Facility:[facility] Start: 06-11-2024 End: 06-11-2024 ambulatory Ana Cristina Sus ADMINISTRATIVE OFFICE SPECIALIST Facility:[facility] Start: 06-07-2024 End: 06-07-2024 ambulatory Alisia Foster Facility:[facility] Start: 06-07-2024 End: 06-07-2024 ambulatory Sonya Benoit Facility:[facility] Start: 05-13-2024 ambulatory Ana Cristina Sus ADMINISTRATIVE OFFICE SPECIALIST Facil ity:[facility] Start: 10-26-2023 End: 10-26-2023 ambulatory [facility] Work Phone: Start: 10-26-2023 End: 10-26-2023 Patient encounter procedure [facility] Work Phone: Start: 07-05-2023 End: 07-05-2023 ambulatory DO Alisia Foster Work Phone: [facility] Work Phone: Start: 07-05-2023 End: 07-05-2023 Patient encounter procedure DO Alisia Foster Work Phone: [facility] Start: 06-07-2023 End: 06-07-2023 Patient encounter procedure DO Alisia Foster Work Phone: [facility] [place] Work Phone: Start: 05-29-2023 End: 05-29-2023 Patient encounter procedure DO Alisia Foster Work Phone: [facility] Work Phone: Start: 02-20-2023 End: 02-20-[address] Britta Acevedo Work Phone: [facility] Work Phone: Start: 02-20-2023 End: 02-20-[address] Britt[facility] Work Phone: Start: 02-20-2023 End: 02-20-[address] Britta Acevedo Work Phone: [facility] Work Phone: Start: 12-05-2022 End: 12-05-[address] Britta Acevedo Work Phone: [facility] Work Phone: Start: 05-26-2022 End: 05-26-[address] Britta Acevedo Work Phone: [facility] Work Phone: Start: 05-26-2022 End: 05-26-[address] Britta Acevedo Work Phone: [facility] Start: 04-26-2022 End: 04-26-[address] Britta Acevedo Work Phone: [facility] Work Phone: Start: 04-26-2022 End: 04-26-[address] Britta Acevedo Work Phone: [facility]-Laboratory, Specimen Start: 04-26-2022 End: 04-26-[address] Britta Acevedo Work Phone: [facility] Start: 04-16-2022 Non-patient / Non-visit Dr. Britta Acevedo Work Phone: [facility] Start: 04-15-2022 Non-patient / Non-visit Dr. Britta Acevedo Work Phone: [facility] Start: 04-14-2022 Non-patient / Non-visit Dr. Britta Acevedo Work Phone: [facility] Start: 04-14-2022 End: 04-16-2022 Evaluation and management of inpatient Dr. Britta Acevedo Work Phone: [facility] Start: 04-08-2022 End: 04-08-[address] Britta Acevedo Work Phone: [facility] Work Phone: Start: 04-08-2022 End: 04-08-[address] Britt[facility] Aceved[facility] Start: 04-08-2022 End: 04-08-[address] Britta Acevedo Work Phone: [facility] Start: 04-01-2022 End: 04-01-[address] Britta Acevedo Work Phone: [facility] Start: 03-29-2022 End: 03-29-[address] Britta Acevedo Work Phone: [facility], [facility] Start: 03-25-2022 End: 03-25-[address] Britt[facility] Aceved[facility] Start: 03-25-2022 End: 03-25-[address] Britta Acevedo Work Phone: [facility] Start: 03-09-2022 End: 03-09-[address] Britta Acevedo Work Phone: [facility] Start: 02-25-2022 End: 02-25-[address] Britta Acevedo Work Phone: [facility] Start: 02-11-2022 End: 02-11-[address] Britta Acevedo Work Phone: [facility] Start: 01-28-2022 End: 01-28-[address] Britt[facility] Aceved[facility] Start: 01-26-2022 End: 01-26-[address] Britta Acevedo Work Phone: [facility] Start: 12-24-2021 End: 12-24-[address] Britta Acevedo Work Phone: [facility] Start: 11-26-2021 End: 11-26-[address] Britta Acevedo Work Phone: [facility] Start: 10-29-2021 End: 10-29-[address] Britta Acevedo Work Phone: [facility] Start: 10-01-2021 End: 10-01-[address] Britt[facility] Aceved[facility] Start: 10-01-2021 End: 10-01-[address] Britta Acevedo Work Phone: [facility] Start: 09-16-2021 End: 09-16-[address] Britt[facility]ved[facility] Start: 09-10-2021 End: 09-10-[address] Britta Acevedo Work Phone: [facility]-Ultrasound, WC Start: 09-09-2021 End: 09-09-[address] Britta Acevedo Work Phone: [facility]-Laboratory, OP Pavilion Start: 09-03-2021 Non-patient / Non-visit Dr. Britta Acevedo Work Phone: [facility] Start: 12-13-2016 End: 12-13-2016 Office outpatient visit 15 minutes Britta Lorenzo [facility] Start: 03-11-2016 End: 03-11-2016 Historical Summary Britta Lorenzo [employer] al Medicine Start: 01-08-2016 End: 01-10-2016 Office outpatient visit 15 minutes Britta Lorenzo [facility] Start: 12-07-2015 End: 12-07-2015 Phone Encounter Britta Lorenzo [employer] al Medicine Start: 12-04-2015 End: 12-06-2015 Office outpatient visit 25 minutes Britta Acevedo [facility] Start: 12-01-2015 End: 12-01-2015 Lab Order Britta Lorenzo [employer] al Medicine Start: 08-12-2015 End: 08-12-2015 Office outpatient visit 25 minutes Britta Lorenzo [facility] Start: 02-23-2015 End: 02-23-2015 Office outpatient visit 25 minutes Britta Acevedo [facility] Start: 01-16-2015 End: 01-16-2015 Phone Encounter Britta Lorenzo [employer] al Medicine Start: 10-24-2014 End: 10-24-2014 Office outpatient visit 15 minutes Britta Acevedo [facility] Start: 06-16-2014 End: 06-16-2014 Office outpatient visit 15 minutes Britta Acevedo [facility] Start: 05-13-2014 End: 05-13-2014 Phone Encounter Britta Lorenzo [employer] al Medicine Start: 05-13-2014 End: 05-13-2014 Office outpatient visit 15 minutes Britta Acevedo [facility] Start: 04-02-2014 End: 04-02-2014 Office outpatient visit 25 minutes Britta Acevedo [facility] Start: 03-21-2014 End: 03-21-2014 Office outpatient visit 25 minutes Britta Acevedo [facility] Start: 05-22-2013 End: 05-23-2013 Patient encounter procedure Britta Acevedo [facility] Start: 08-03-2012 End: 08-03-2012 Office outpatient visit 15 minutes Brittamartina Rajputon [facility] Start: 07-12-2012 End: 07-12-2012 Patient encounter procedure Britta Acevedo [facility] Start: 06-22-2012 End: 06-22-2012 Office outpatient visit 15 minutes Britta Curtis [facility] Start: 10-24-2011 End: 10-24-2011 Office outpatient visit 25 minutes Britta Curtis [facility] Start: 07-15-2011 End: 07-15-2011 Office outpatient visit 25 minutes Britta Curtis [facility] Start: 02-18-2011 End: 02-18-2011 Patient encounter procedure Brittamartina Rajputon [facility] Start: 09-03-2010 End: 09-03-2010 Patient encounter procedure Britta Curtis [facility] Start: 08-10-2010 End: 08-10-2010 Office outpatient visit 15 minutes Britta Curtis [facility] Start: 06-30-2010 End: 06-30-2010 Patient encounter procedure Britta Curtis [facility] Start: 06-07-2010 End: 06-07-2010 Patient encounter procedure Brittamartina Rajputon [facility] Start: 05-21-2010 End: 05-21-2010 Patient encounter procedure Brittamartina Rajputon [facility] Start: 11-09-2009 End: 11-09-2009 Patient encounter procedure Britta Curtis [facility] Start: 11-05-2009 End: 11-05-2009 Patient encounter procedure Britta Curtis [facility] Start: 02-10-2009 End: 02-10-2009 Patient encounter procedure Britta Curtis [facility] Start: 11-10-2008 End: 11-10-2008 Patient encounter procedure Britta Curtis [facility] Start: 10-02-2008 End: 10-03-2008 Patient encounter procedure Brittamartina Rajputon [facility] Start: 09-30-2008 End: 09-30-2008 Office outpatient visit 10 minutes Britta Curtis [facility] Start: 09-24-2008 End: 09-24-2008 Patient encounter procedure Britta Curtis [facility] Start: 09-08-2008 End: 09-08-2008 Patient encounter procedure Britta Acevedo [facility] Start: 07-07-2008 End: 07-07-2008 Patient encounter procedure Britta Acevedo [facility] Start: 06-17-2008 End: 06-17-2008 Patient encounter procedure Britta Acevedo [facility] Start: 09-11-2007 End: 09-11-2007 Patient encounter procedure Britta Acevedo [facility] Start: 07-04-2007 End: 07-04-2007 Patient encounter procedure Britta Acevedo [facility] Start: 01-10-2007 End: 01-11-2007 Patient encounter procedure Britta Acevedo [facility] Start: 10-17-2006 End: 10-17-2006 Patient encounter procedure Britta Acevedo [facility] Start: 07-27-2006 End: 07-27-2006 Patient encounter procedure Britta Acevedo [facility] Start: 07-25-2006 End: 07-25-2006 Historical Summary Britta Acevedo [facility] [employer]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 Britta Acevedo Work Phone: Start: 04-26-2022 End: 04-26-2022 Dance Director Office Visit Report Procedure Note: See Note; NOTES: [facility] [address] [place] [address] OFFICE VISIT Date of Service: 04/26/22 MR#: [id number] Acct: [id number] Name: DYLANPRISCILA MALAGON VERONICATOOKRISSY Rep #: [id number] : 1985 Provider: Dr. Sonya valentino MD Age/Sex: 36/F Location: [facility] Status: Signed Intake Vital Signs 04/14/22 10:22 04/26/22 15:03 04/26/22 15:03 Height 5 ft 5 in 5 ft 5 in 5 ft 5 in Weight: 149 lb 8 oz BMI 24.8 BP 129/79 H Intake Visit Reasons: 2WK PP Leach Cell Operator Required: No Is patient in pain?: No [...] at home: Yes additional social history: Trang- Roll Examiner Patient Nilda Marley Financial planning History 2 Elective abortions Hx Para 2 Spontaneous abortions Hx # Term Pregnancies 2 Ectopic pregnancies Hx # Pregnancies Multiple births # of living children 2 Past Pregnancies Del. Date Name GA/Weeks Outcome Route Bth Weight Gen Labor Lgth Anesthesia Del Locatn Provider FOB 07/16/20 Meron 40 live - full term Female epidural [facility] Tiffany 04/14/22 Maira 38 live - full term 8lbs 5oz Female spinal [facility] Sonya Menard Delivery Date: 07/16/20 Last Updated by: Sathya English arrest of descent Delivery Date: 04/14/22 Last Updated by: Federica Alexandra RLTCS 39 Post HPI 2WK PP: Details: PRISCILA NGO is a 36 year old who presents [...] DO Work Phone: Start: 04-08-2022 End: 04-13-2022 Dance Director Office Visit Report Procedure Note: See Note; NOTES: [facility] [address] [place] [address] OFFICE VISIT Date of Service: 04/08/22 MR#: [id number] Acct: [id number] Name: PRISCILA NGO Rep #: [id number] : 1985 Provider: Dr. Sonya valentino MD Age/Sex: 36/F Location: [facility] Status: Signed Intake Vital Signs 10/29/21 15:52 [...] at home: Yes 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 Date Name GA/Weeks Outcome Route Bth Weight Gen Labor Lgth Anesthesia Del Locatn Provider FOB 07/16/20 Meron 40 live - full term Female epidural [facility] Tiffany Delivery Date: 07/16/20 Last Updated by: Sathya English arrest of descent HPI 38WK OB Details: PRISCILA NGO is a 36 year old who presents [...] list details Initial Weight: 139 lb Date -???-???-???-???-???-???-?? ?-???-???-???-???-???- EGA Weight BP Urine Prot -???-???-???-???-???-???-?? ?-???-???-???-???-???- Glucose FHR FuHt Pres Dilation -???-???-???-???-???-???-?? ?-???-???-???-???-???- Effaced St Visit Note 09/16/21 -???-???-???-???-???-???-?? ?-???-???-???-???-???- 9w 1d 139 lb (+0 oz) 120/86 -???-???-???-???-???-???-?? ?-???-???-???-???-???- 170 -???-???-???-???-???-???-?? ?-???-???-???-???-???- SM- CRL cons with LMP SM- CRL 2.6cm cons with LMP 10/01/21 -???-???-???-???-???-???-?? ?-???-???-???-???-???- 11w 2d 144 lb (+5 lb) 114/80 -???-???-???-???-???-???-?? ?-???-???-???-???-???- 145 -???-???-???-???-???-???-?? ?-???-???-???-???-???- SM- no vb cr amping 10/29/21 -???-???-???-???-???-???-?? ?-???-???-???-???-???- 15w 2d 144 lb 6 oz (+5 lb 6 oz) 118/78 Negative -???-???-???-???-???-???-?? ?-???-???-???-???-???- Negative 150 -???-???-???-???-???-???-?? ?-???-???-???-???-???- JV- no lof, vaginal bleeding, or cramping. test pos for opiods was likely due to eating poppy seeds. Pt reassured. follow up test was neg. anatomy scan ordered. 11/26/21 -???-???-???-???-???-???-?? ?-???-???-???-???-???- 19w 2d 143 lb 4 oz (+4 lb 4 oz) 114/70 Negative -???-???-???-???-???-???-?? ?-???-???-???-???-???- Negative 150 -???-???-???-???-???-???-?? ?-???-???-???-???-???- SM- no vb lo f good fm still having emesis but stable. 12/24/21 -???-???-???-???-???-???-?? ?-???-???-???-???-???- 23w 2d 148 lb 2 oz (+9 lb 2 oz) 118/78 Negative -???-???-???-???-???-???-?? ?-???-???-???-???-???- Negative 145 23 -???-???-???-???-???-???-?? ?-???-???-???-???-???- JV- pt has y east infetion today. requesting diflucan. pepcid and meclazine ordered. will be going to [place] for vacation 01/26/22 -???-???-???-???-???-???-?? ?-???-???-???-???-???- 28w 0d 149 lb 8 oz (+10 lb 8 oz) 126/76 Negative -???-???-???-???-???-???-?? ?-???-???-???-???-???- Negative 145 29 -???-???-???-???-???-???-?? ?-???-???-???-???-???- JV- received rhogam, tdap, and needs to re-do glucola 02/11/22 -???-???-???-???-???-???-?? ?-???-???-???-???-???- 30w 2d 153 lb 6 oz (+14 lb 6 oz) 112/76 Negative -???-???-???-???-???-???-?? ?-???-???-???-???-???- Negative 145 31 -???-???-???-???-???-???-?? ?-???-???-???-???-???- SM- no vb lo f good fm no regular ctx discussed reflux management 02/25/22 -???-???-???-???-???-???-?? ?-???-???-???-???-???- 32w 2d 158 lb (+19 lb) 124/62 Negative -???-???-???-???-???-???-?? ?-???-???-???-???-???- Negative 140 32 -???-???-???-???-???-???-?? ?-???-???-???-???-???- SM- no vb lo f good fm no regualr ctx 03/09/22 -???-???-???-???-???-???-?? ?-???-???-???-???-???- 34w 0d 157 lb (+18 lb) 112/60 Negative -???-???-???-???-???-???-?? ?-???-???-???-???-???- Negative 144 34 -???-???-???-???-???-???-?? ?-???-???-???-???-???- -No vB, LO F. Good FM. Denies concerns. 03/25/22 -???-???-???-???-???-???-?? ?-???-???-???-???-???- 36w 2d 157 lb 4 oz (+18 lb 4 oz) 110/74 Negative -???-???-???-???-???-???-?? ?-???-???-???-???-???- Negative 140 34 -???-???-???-???-???-???-?? ?-???-???-???-???-???- SM- no vb lo f good fm no regular ctx gbs done growth US ordered 04/01/22 -???-???-???-???-???-???-?? ?-???-???-???-???-???- 37w 2d 160 lb (+21 lb) 120/72 Negative -???-???-???-???-???-???-?? ?-???-???-???-???-???- Negative 145 37 Cephalic 1 -???-???-???-???-???-???-?? ?-???-???-???-???-???- SM- no vb lo f good fm no reuglar ctx 04/08/22 -???-???-???-???-???-???-?? ?-???-???-???-???-???- 38w 2d 159 lb 6 oz (+20 lb 6 oz) 118/72 Negative -???-???-???-???-???-???-?? ?-???-???-???-???-???- Negative 145 38 Cephalic 1 -???-???-???-???-???-???-?? ?-???-???-???-???-???- SM- no vb lo f good fm [...] General: cooperative, healthy appearing, comfortable and anxious HENMT Head: normal to inspection Nose: external nose normal Face and sinus: normal facial exam Neck Neck: normal visual inspection, full ROM and no lymphadenopathy Thyroid: thyroid normal Chest Chest palpation inspection: normal inspection of the chest Resp Effort Inspection: normal respiratory effort GI Inspection: normal to inspection Palpation: soft and other (gravid uterus) Other: vertex and appropriate size for gestational age [...] Benoit MD 04/13/22 1812 <Electronically signed by Ktae Small DO> Date Kate Small DO 04/08/22 1032<Electronically signed by Sonya Benoit MD> Cosigner Signature: Date (if applicable) Sonya Benoit MD CC: Britta Acevedo Work Phone: Start: 04-01-2022 End: 04-01-2022 Dance Director Office Visit Report Procedure Note: See Note; NOTES: [facility] [address] [place] [address]. [address] [place] [address] OFFICE VISIT Date of Service: 04/01/22 MR#: [id number] Acct: [id number] Name: PRISCILA NGO Rep #: [id number] : 1985 Provider: Dr. Sonya valentino MD Age/Sex: 36/F Location: [facility] [place] Status: Signed Intake Vital Signs 10/29/21 15:52 04/01/22 15:51 04/01/22 15:52 Height 5 ft 5 in 5 ft 5 in 5 ft 5 in Weight: 160 lb BMI 26.6 BP 120/72 Intake Visit Reasons: 37WK OB Chief Complaint: est ob Leach Cell Operator Required: No Is patient in pain?: No [...] at home: Yes 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 Date Name GA/Weeks Outcome Route Bth Weight Gen Labor Lgth Anesthesia Del Locatn Provider FOB 07/16/20 Meron 40 live - full term Female epidural [facility] Tiffany Delivery Date: 07/16/20 Last Updated by: Sathya English arrest of descent HPI 37WK OB Details: PRISCILA NGO is a 36 year old who presents [...] list details Initial Weight: 139 lb Date -???-???-???-???-???-???-?? ?-???-???-???-???-???- EGA Weight BP Urine Prot -???-???-???-???-???-???-?? ?-???-???-???-???-???- Glucose FHR FuHt Pres Dilation -???-???-???-???-???-???-?? ?-???-???-???-???-???- Effaced St Visit Note 09/16/21 -???-???-???-???-???-???-?? ?-???-???-???-???-???- 9w 1d 139 lb (+0 oz) 120/86 -???-???-???-???-???-???-?? ?-???-???-???-???-???- 170 -???-???-???-???-???-???-?? ?-???-???-???-???-???- SM- CRL cons with LMP SM- CRL 2.6cm cons with LMP 10/01/21 -???-???-???-???-???-???-?? ?-???-???-???-???-???- 11w 2d 144 lb (+5 lb) 114/80 -???-???-???-???-???-???-?? ?-???-???-???-???-???- 145 -???-???-???-???-???-???-?? ?-???-???-???-???-???- SM- no vb cr amping 10/29/21 -???-???-???-???-???-???-?? ?-???-???-???-???-???- 15w 2d 144 lb 6 oz (+5 lb 6 oz) 118/78 Negative -???-???-???-???-???-???-?? ?-???-???-???-???-???- Negative 150 -???-???-???-???-???-???-?? ?-???-???-???-???-???- JV- no lof, vaginal bleeding, or cramping. test pos for opiods was likely due to eating poppy seeds. Pt reassured. follow up test was neg. anatomy scan ordered. 11/26/21 -???-???-???-???-???-???-?? ?-???-???-???-???-???- 19w 2d 143 lb 4 oz (+4 lb 4 oz) 114/70 Negative -???-???-???-???-???-???-?? ?-???-???-???-???-???- Negative 150 -???-???-???-???-???-???-?? ?-???-???-???-???-???- SM- no vb lo f good fm still having emesis but stable. 12/24/21 -???-???-???-???-???-???-?? ?-???-???-???-???-???- 23w 2d 148 lb 2 oz (+9 lb 2 oz) 118/78 Negative -???-???-???-???-???-???-?? ?-???-???-???-???-???- Negative 145 23 -???-???-???-???-???-???-?? ?-???-???-???-???-???- JV- pt has y east infetion today. requesting diflucan. pepcid and meclazine ordered. will [place] 01/26/22 -???-???-???-???-???-???-?? ?-???-???-???-???-???- 28w 0d 149 lb 8 oz (+10 lb 8 oz) 126/76 Negative -???-???-???-???-???-???-?? ?-???-???-???-???-???- Negative 145 29 -???-???-???-???-???-???-?? ?-???-???-???-???-???- JV- received rhogam, tdap, and needs to re-do glucola 02/11/22 -???-???-???-???-???-???-?? ?-???-???-???-???-???- 30w 2d 153 lb 6 oz (+14 lb 6 oz) 112/76 Negative -???-???-???-???-???-???-?? ?-???-???-???-???-???- Negative 145 31 -???-???-???-???-???-???-?? ?-???-???-???-???-???- SM- no vb lo f good fm no regular ctx discussed reflux management 02/25/22 -???-???-???-???-???-???-?? ?-???-???-???-???-???- 32w 2d 158 lb (+19 lb) 124/62 Negative -???-???-???-???-???-???-?? ?-???-???-???-???-???- Negative 140 32 -???-???-???-???-???-???-?? ?-???-???-???-???-???- SM- no vb lo f good fm no regualr ctx 03/09/22 -???-???-???-???-???-???-?? ?-???-???-???-???-???- 34w 0d 157 lb (+18 lb) 112/60 Negative -???-???-???-???-???-???-?? ?-???-???-???-???-???- Negative 144 34 -???-???-???-???-???-???-?? ?-???-???-???-???-???- MH-No vB, LO F. Good FM. Denies concerns. 03/25/22 -???-???-???-???-???-???-?? ?-???-???-???-???-???- 36w 2d 157 lb 4 oz (+18 lb 4 oz) 110/74 Negative -???-???-???-???-???-???-?? ?-???-???-???-???-???- Negative 140 34 -???-???-???-???-???-???-?? ?-???-???-???-???-???- SM- no vb lo f good fm no regular ctx gbs done growth US ordered 04/01/22 -???-???-???-???-???-???-?? ?-???-???-???-???-???- 37w 2d 160 lb (+21 lb) 120/72 Negative -???-???-???-???-???-???-?? ?-???-???-???-???-???- Negative 145 37 Cephalic 1 -???-???-???-???-???-???-?? ?-???-???-???-???-???- SM- no vb lo f good fm [...] Britta Acevedo DO Work Phone: Start: 03-29-2022 Ultrasound scan for growth Dr. Britta Acevedo Work Phone: Start: 03-29-2022 End: 03-29-2022 OB Limited With Biometrics Procedure Note: See Note; NOTES: [facility] [address] [place] [address] OB Limited With Biometrics MR#: [id number] Acct: [id number] Name: PRISCILA NGO Rep #: [id number] : 1985 F 36 From: Arvind Alvarado PCP: Dr. Britta Acevedo DO Status: REG CLI Study: OB Limited With Biometrics Date of Exam: 03/29 Exam# [id number] Ordering Dr: Sonya Benoit STUDY: SECOND AND [...] 36 weeks, 6 days. ALVAREZ by LMP: 9.7.22. US/OB Limited With Biometrics IMPRESSION: There is a single live intrauterine with a heart rate of 144 bpm. age by current US: 36 weeks, 5 days. ALVAREZ by current US: 9.8.22. Estimated weight: 3048 grams, +/- 457 grams, 55 %. Electronically Signed: Arvind Prasad MD at 15:36 EDT Reading Location ID and State: [facility] / [place] , Service support , CC: Dr. Britta Acevedo DO; Dr. Sonya Benoit MD Assembler Molded Frames: Signed Britta Acevedo DO Work Phone: Start: 03-25-2022 End: 03-25-2022 Dance Director Office Visit Report Procedure Note: See Note; NOTES: [facility] [place] [address] [place] [address] OFFICE VISIT Date of Service: 03/25/22 MR#: [id number] Acct: [id number] Name: PRISCILA NGO Rep #: [id number] : 1985 Provider: Dr. Sonya valentino MD Age/Sex: 36/F Location: [facility] [place] Status: Signed Intake Vital Signs 10/29/21 15:52 03/25/22 14:50 Height 5 ft 5 in 5 ft Intake Visit Reasons: 36WK OB Leach Cell Operator Required: No Is patient in pain?: No [...] at home: Yes 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 Date Name GA/Weeks Outcome Route Bth Weight Gen Labor Lgth Anesthesia Del Locatn Provider FOB 07/16/20 Meron 40 live - full term Female epidural [facility] Tiffany Delivery Date: 07/16/20 Last Updated by: Sathya English arrest of descent HPI 36WK OB Details: PRISCILA NGO is a 36 year old who presents [...] list details Initial Weight: 139 lb Date -???-???-???-???-???-???-?? ?-???-???-???-???-???- EGA Weight BP Urine Prot -???-???-???-???-???-???-?? ?-???-???-???-???-???- Glucose FHR FuHt Pres Dilation -???-???-???-???-???-???-?? ?-???-???-???-???-???- Effaced St Visit Note 09/16/21 -???-???-???-???-???-???-?? ?-???-???-???-???-???- 9w 1d 139 lb (+0 oz) 120/86 -???-???-???-???-???-???-?? ?-???-???-???-???-???- 170 -???-???-???-???-???-???-?? ?-???-???-???-???-???- SM- CRL cons with LMP SM- CRL 2.6cm cons with LMP 10/01/21 -???-???-???-???-???-???-?? ?-???-???-???-???-???- 11w 2d 144 lb (+5 lb) 114/80 -???-???-???-???-???-???-?? ?-???-???-???-???-???- 145 -???-???-???-???-???-???-?? ?-???-???-???-???-???- SM- no vb cr amping 10/29/21 -???-???-???-???-???-???-?? ?-???-???-???-???-???- 15w 2d 144 lb 6 oz (+5 lb 6 oz) 118/78 Negative -???-???-???-???-???-???-?? ?-???-???-???-???-???- Negative 150 -???-???-???-???-???-???-?? ?-???-???-???-???-???- JV- no lof, vaginal bleeding, or cramping. test pos for opiods was likely due to eating poppy seeds. Pt reassured. follow up test was neg. anatomy scan ordered. 11/26/21 -???-???-???-???-???-???-?? ?-???-???-???-???-???- 19w 2d 143 lb 4 oz (+4 lb 4 oz) 114/70 Negative -???-???-???-???-???-???-?? ?-???-???-???-???-???- Negative 150 -???-???-???-???-???-???-?? ?-???-???-???-???-???- SM- no vb lo f good fm still having emesis but stable. 12/24/21 -???-???-???-???-???-???-?? ?-???-???-???-???-???- 23w 2d 148 lb 2 oz (+9 lb 2 oz) 118/78 Negative -???-???-???-???-???-???-?? ?-???-???-???-???-???- Negative 145 23 -???-???-???-???-???-???-?? ?-???-???-???-???-???- JV- pt has y east infetion today. requesting diflucan. pepcid and meclazine ordered. will be going to [place] for vacation 01/26/22 -???-???-???-???-???-???-?? ?-???-???-???-???-???- 28w 0d 149 lb 8 oz (+10 lb 8 oz) 126/76 Negative -???-???-???-???-???-???-?? ?-???-???-???-???-???- Negative 145 29 -???-???-???-???-???-???-?? ?-???-???-???-???-???- JV- received rhogam, tdap, and needs to re-do glucola 02/11/22 -???-???-???-???-???-???-?? ?-???-???-???-???-???- 30w 2d 153 lb 6 oz (+14 lb 6 oz) 112/76 Negative -???-???-???-???-???-???-?? ?-???-???-???-???-???- Negative 145 31 -???-???-???-???-???-???-?? ?-???-???-???-???-???- SM- no vb lo f good fm no regular ctx discussed reflux management 02/25/22 -???-???-???-???-???-???-?? ?-???-???-???-???-???- 32w 2d 158 lb (+19 lb) 124/62 Negative -???-???-???-???-???-???-?? ?-???-???-???-???-???- Negative 140 32 -???-???-???-???-???-???-?? ?-???-???-???-???-???- SM- no vb lo f good fm no regualr ctx 03/09/22 -???-???-???-???-???-???-?? ?-???-???-???-???-???- 34w 0d 157 lb (+18 lb) 112/60 Negative -???-???-???-???-???-???-?? ?-???-???-???-???-???- Negative 144 34 -???-???-???-???-???-???-?? ?-???-???-???-???-???- -No vB, LO F. Good FM. Denies concerns. 03/25/22 -???-???-???-???-???-???-?? ?-???-???-???-???-???- 36w 2d 157 lb 4 oz (+18 lb 4 oz) 110/74 Negative -???-???-???-???-???-???-?? ?-???-???-???-???-???- Negative 140 34 -???-???-???-???-???-???-?? ?-???-???-???-???-???- SM- no vb lo f good fm [...] POC Urinalysis 2 Dip (Clinic) Today 03/25/22 5279 <Electronically signed by Sonya Benoit MD> Date Sonya Benoit MD Cosigner Signature: Date (if applicable) CC: Britta Acevedo DO Work Phone: Start: 03-09-2022 End: 03-12-2022 Dance Director Office Visit Report Procedure Note: See Note; NOTES: [facility] [address] [address] [place] [address] OFFICE VISIT Date of Service: 03/09/22 MR#: [id number] Acct: [id number] Name: PRISCILA NGO Rep #: [id number] : 1985 Provider: RASTA avendaño Age/Sex: 36/F Location: [facility] [place] Status: Signed Intake Vital Signs 10/29/21 15:52 03/09/22 15:49 03/09/22 15:50 Height 5 ft 5 in 5 ft 5 in 5 ft Weight: 157 lb BMI 26.1 BP 112/60 Intake Visit Reasons: 34WK OB Chief Complaint: est ob Leach Cell Operator Required: No Is patient in pain?: No [...] at home: Yes additional social history: Trang- Roll Examiner Patient Munguiaalejandra Marley 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 Date Name GA/Weeks Outcome Route Bth Weight Infant Gen Labor Lgth Anesthesia Del [facility] Provider FOB 07/16/20 Meron 40 live - full term Female epidural [facility] Tiffany Delivery Date: 07/16/20 Last Updated by: Sathya English arrest of descent HPI 34WK OB Details: PRISCILA NGO is a 36 year old who presents [...] list details Initial Weight: 139 lb Date -???-???-???-???-???-???-?? ?-???-???-???-???-???- EGA Weight BP Urine Prot -???-???-???-???-???-???-?? ?-???-???-???-???-???- Glucose FHR FuHt Pres Dilation -???-???-???-???-???-???-?? ?-???-???-???-???-???- Effaced St Visit Note 09/16/21 -???-???-???-???-???-???-?? ?-???-???-???-???-???- 9w 1d 139 lb (+0 oz) 120/86 -???-???-???-???-???-???-?? ?-???-???-???-???-???- 170 -???-???-???-???-???-???-?? ?-???-???-???-???-???- SM- CRL cons with LMP SM- CRL 2.6cm cons with LMP 10/01/21 -???-???-???-???-???-???-?? ?-???-???-???-???-???- 11w 2d 144 lb (+5 lb) 114/80 -???-???-???-???-???-???-?? ?-???-???-???-???-???- 145 -???-???-???-???-???-???-?? ?-???-???-???-???-???- SM- no vb cr amping 10/29/21 -???-???-???-???-???-???-?? ?-???-???-???-???-???- 15w 2d 144 lb 6 oz (+5 lb 6 oz) 118/78 Negative -???-???-???-???-???-???-?? ?-???-???-???-???-???- Negative 150 -???-???-???-???-???-???-?? ?-???-???-???-???-???- JV- no lof, vaginal bleeding, or cramping. test pos for opiods was likely due to eating poppy seeds. Pt reassured. follow up test was neg. anatomy scan ordered. 11/26/21 -???-???-???-???-???-???-?? ?-???-???-???-???-???- 19w 2d 143 lb 4 oz (+4 lb 4 oz) 114/70 Negative -???-???-???-???-???-???-?? ?-???-???-???-???-???- Negative 150 -???-???-???-???-???-???-?? ?-???-???-???-???-???- SM- no vb lo f good fm still having emesis but stable. 12/24/21 -???-???-???-???-???-???-?? ?-???-???-???-???-???- 23w 2d 148 lb 2 oz (+9 lb 2 oz) 118/78 Negative -???-???-???-???-???-???-?? ?-???-???-???-???-???- Negative 145 23 -???-???-???-???-???-???-?? ?-???-???-???-???-???- JV- pt has y east infetion today. requesting diflucan. pepcid and meclazine ordered. will be going to [place] for vacation 01/26/22 -???-???-???-???-???-???-?? ?-???-???-???-???-???- 28w 0d 149 lb 8 oz (+10 lb 8 oz) 126/76 Negative -???-???-???-???-???-???-?? ?-???-???-???-???-???- Negative 145 29 -???-???-???-???-???-???-?? ?-???-???-???-???-???- JV- received rhogam, tdap, and needs to re-do glucola 02/11/22 -???-???-???-???-???-???-?? ?-???-???-???-???-???- 30w 2d 153 lb 6 oz (+14 lb 6 oz) 112/76 Negative -???-???-???-???-???-???-?? ?-???-???-???-???-???- Negative 145 31 -???-???-???-???-???-???-?? ?-???-???-???-???-???- SM- no vb lo f good fm no regular ctx discussed reflux management 02/25/22 -???-???-???-???-???-???-?? ?-???-???-???-???-???- 32w 2d 158 lb (+19 lb) 124/62 Negative -???-???-???-???-???-???-?? ?-???-???-???-???-???- Negative 140 32 -???-???-???-???-???-???-?? ?-???-???-???-???-???- SM- no vb lo f good fm no regualr ctx 03/09/22 -???-???-???-???-???-???-?? ?-???-???-???-???-???- 34w 0d 157 lb (+18 lb) 112/60 Negative -???-???-???-???-???-???-?? ?-???-???-???-???-???- Negative 144 34 -???-???-???-???-???-???-?? ?-???-???-???-???-???- MH-No vB LO F. Good FM. Denies concerns. ACOG First Trimester First [...] RLTCS scheduled for 04/14 @ 12 with (6) Asthma: Status: Acute Comment: singular, ProAir stable controlled by PCP Orders: Orders POC Urinalysis 2 Dip (Clinic) Today Plan problem list reviewed and updated for most current plan of care and appropriate orders placed. Relevant counseling for the gestational age appropriate provided and ACOG education checklist updated. Continue routine care and follow up. 03/12/22 8934 <Electronically signed by Kate Small DO> Date Kate Small 03/09/22 1616<Electronically signed by Ana Cristina Roe NP ADMINISTRATIVE OFFICE SPECIALIST-C> Cosigner Signature: Date (if applicable) Ana Cristina Roe NP ADMINISTRATIVE OFFICE SPECIALIST-C CC: Britta Acevedo DO Work Phone: Start: 02-25-2022 End: 02-25-2022 Dance Director Office Visit Report Procedure Note: See Note; NOTES: [facility] [address] [place] [address] OFFICE VISIT Date of Service: 02/25/22 MR#: [id number] Acct: [id number] Name: PRISCILA NGO Rep #: [id number] : 1985 Provider: Dr. Sonya valentino MD Age/Sex: 36/F Location: [facility] [place] Status: Signed Intake Vital Signs 10/29/21 15:52 02/25/22 15:41 02/25/22 15:41 Height 5 ft 5 in 5 ft 5 ft Weight: 158 lb BMI 30.8 BP 124/62 H Intake Visit Reasons: 32WK OB Chief Complaint: est ob Leach Cell Operator Required: No Is patient in pain?: No [...] at home: Yes 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 Date Name GA/Weeks Outcome Route Bth Weight Gen Labor Lgth Anesthesia Del Locatn Provider FOB 07/16/20 Meron 40 live - full term Female epidural [facility] Tiffany Delivery Date: 07/16/20 Last Updated by: Sathya English arrest of descent HPI 32WK OB Details: PRISCILA NGO is a 36 year old who presents [...] list details Initial Weight: 139 lb Date -???-???-???-???-???-???-?? ?-???-???-???-???-???- EGA Weight BP Urine Prot -???-???-???-???-???-???-?? ?-???-???-???-???-???- Glucose FHR FuHt Pres Dilation -???-???-???-???-???-???-?? ?-???-???-???-???-???- Effaced St Visit Note 09/16/21 -???-???-???-???-???-???-?? ?-???-???-???-???-???- 9w 1d 139 lb (+0 oz) 120/86 -???-???-???-???-???-???-?? ?-???-???-???-???-???- 170 -???-???-???-???-???-???-?? ?-???-???-???-???-???- SM- CRL cons with LMP SM- CRL 2.6cm cons with LMP 10/01/21 -???-???-???-???-???-???-?? ?-???-???-???-???-???- 11w 2d 144 lb (+5 lb) 114/80 -???-???-???-???-???-???-?? ?-???-???-???-???-???- 145 -???-???-???-???-???-???-?? ?-???-???-???-???-???- SM- no vb cr amping 10/29/21 -???-???-???-???-???-???-?? ?-???-???-???-???-???- 15w 2d 144 lb 6 oz (+5 lb 6 oz) 118/78 Negative -???-???-???-???-???-???-?? ?-???-???-???-???-???- Negative 150 -???-???-???-???-???-???-?? ?-???-???-???-???-???- JV- no lof, vaginal bleeding, or cramping. test pos for opiods was likely due to eating poppy seeds. Pt reassured. follow up test was neg. anatomy scan ordered. 11/26/21 -???-???-???-???-???-???-?? ?-???-???-???-???-???- 19w 2d 143 lb 4 oz (+4 lb 4 oz) 114/70 Negative -???-???-???-???-???-???-?? ?-???-???-???-???-???- Negative 150 -???-???-???-???-???-???-?? ?-???-???-???-???-???- SM- no vb lo f good fm still having emesis but stable. 12/24/21 -???-???-???-???-???-???-?? ?-???-???-???-???-???- 23w 2d 148 lb 2 oz (+9 lb 2 oz) 118/78 Negative -???-???-???-???-???-???-?? ?-???-???-???-???-???- Negative 145 23 -???-???-???-???-???-???-?? ?-???-???-???-???-???- JV- pt has y east infetion today. requesting diflucan. pepcid and meclazine ordered. will be going [place] 01/26/22 -???-???-???-???-???-???-?? ?-???-???-???-???-???- 28w 0d 149 lb 8 oz (+10 lb 8 oz) 126/76 Negative -???-???-???-???-???-???-?? ?-???-???-???-???-???- Negative 145 29 -???-???-???-???-???-???-?? ?-???-???-???-???-???- JV- received rhogam, tdap, and needs to re-do glucola 02/11/22 -???-???-???-???-???-???-?? ?-???-???-???-???-???- 30w 2d 153 lb 6 oz (+14 lb 6 oz) 112/76 Negative -???-???-???-???-???-???-?? ?-???-???-???-???-???- Negative 145 31 -???-???-???-???-???-???-?? ?-???-???-???-???-???- SM- no vb lo f good fm no regular ctx discussed reflux management 02/25/22 -???-???-???-???-???-???-?? ?-???-???-???-???-???- 32w 2d 158 lb (+19 lb) 124/62 Negative -???-???-???-???-???-???-?? ?-???-???-???-???-???- Negative 140 32 -???-???-???-???-???-???-?? ?-???-???-???-???-???- SM- no vb lo f good fm [...] RLTCS scheduled for 04/14 @ 12 with (6) Asthma: Status: Acute Comment: singular, ProAir stable controlled by PCP Orders: Orders POC Urinalysis 2 Dip (Clinic) Today 02/25/22 1607 <Electronically signed by Sonya Benoit MD> Date Sonya Benoit MD Cosign Signature: Date (if applicable) CC: Britta Acevedo DO Work Phone: Start: 02-11-2022 End: 02-11-2022 Dance Director Office Visit Report Procedure Note: See Note; NOTES: [facility] [address] [place] [address] OFFICE VISIT Date of Service: 02/11/22 MR#: [id number] Acct: [id number] Name: PRISCILA NGO Rep #: [id number] : 1985 Provider: Dr. Sonya valentino MD Age/Sex: 36/F Location: [facility] [place] Status: Signed Intake Vital Signs 10/29/21 15:52 02/11/22 16:03 02/11/22 16:04 Height 5 ft 5 in 5 ft 5 ft Weight: 153 lb 6 oz BMI 29.9 BP 112/76 Intake Visit Reasons: 30WK OB Leach Cell Operator Required: No Is patient in pain?: No [...] at home: Yes additional social history: Trang- Roll Examiner Patient Munguiaalejandra Marley 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 Date Name GA/Weeks Outcome Route Bth Weight Infant Gen Labor Lgth Anesthesia Del Locatn Provider FOB 07/16/20 Meron 40 live - full term Female epidural [facility] Tiffany Delivery Date: 07/16/20 Last Updated by: Sathya English arrest of descent HPI 30WK OB Details: PRISICLA NGO is a 36 year old who presents [...] list details Initial Weight: 139 lb Date -???-???-???-???-???-???-?? ?-???-???-???-???-???- EGA Weight BP Urine Prot -???-???-???-???-???-???-?? ?-???-???-???-???-???- Glucose FHR FuHt Pres Dilation -???-???-???-???-???-???-?? ?-???-???-???-???-???- Effaced St Visit Note 09/16/21 -???-???-???-???-???-???-?? ?-???-???-???-???-???- 9w 1d 139 lb (+0 oz) 120/86 -???-???-???-???-???-???-?? ?-???-???-???-???-???- 170 -???-???-???-???-???-???-?? ?-???-???-???-???-???- SM- CRL cons with LMP SM- CRL 2.6cm cons with LMP 10/01/21 -???-???-???-???-???-???-?? ?-???-???-???-???-???- 11w 2d 144 lb (+5 lb) 114/80 -???-???-???-???-???-???-?? ?-???-???-???-???-???- 145 -???-???-???-???-???-???-?? ?-???-???-???-???-???- SM- no vb cr amping 10/29/21 -???-???-???-???-???-???-?? ?-???-???-???-???-???- 15w 2d 144 lb 6 oz (+5 lb 6 oz) 118/78 Negative -???-???-???-???-???-???-?? ?-???-???-???-???-???- Negative 150 -???-???-???-???-???-???-?? ?-???-???-???-???-???- JV- no lof, vaginal bleeding, or cramping. test pos for opiods was likely due to eating poppy seeds. Pt reassured. follow up test was neg. anatomy scan ordered. 11/26/21 -???-???-???-???-???-???-?? ?-???-???-???-???-???- 19w 2d 143 lb 4 oz (+4 lb 4 oz) 114/70 Negative -???-???-???-???-???-???-?? ?-???-???-???-???-???- Negative 150 -???-???-???-???-???-???-?? ?-???-???-???-???-???- SM- no vb lo f good fm still having emesis but stable. 12/24/21 -???-???-???-???-???-???-?? ?-???-???-???-???-???- 23w 2d 148 lb 2 oz (+9 lb 2 oz) 118/78 Negative -???-???-???-???-???-???-?? ?-???-???-???-???-???- Negative 145 23 -???-???-???-???-???-???-?? ?-???-???-???-???-???- JV- pt has y east infetion today. requesting diflucan. pepcid and meclazine ordered. [place] going [place] 01/26/22 -???-???-???-???-???-???-?? ?-???-???-???-???-???- 28w 0d 149 lb 8 oz (+10 lb 8 oz) 126/76 Negative -???-???-???-???-???-???-?? ?-???-???-???-???-???- Negative 145 29 -???-???-???-???-???-???-?? ?-???-???-???-???-???- JV- received rhogam, tdap, and needs to re-do glucola 02/11/22 -???-???-???-???-???-???-?? ?-???-???-???-???-???- 30w 2d 153 lb 6 oz (+14 lb 6 oz) 112/76 Negative -???-???-???-???-???-???-?? ?-???-???-???-???-???- Negative 145 31 -???-???-???-???-???-???-?? ?-???-???-???-???-???- SM- no vb lo f good fm [...] Office Urine Glucose Negative Last Edit by Sathya English on 02/11/22 15:59 Office Urine Protein Negative Last Edit by Sathya English on 02/11/22 15:59 Coding Level of [...] POC Urinalysis 2 Dip (Clinic) Today 02/11/22 3035 <Electronically signed by Sonya Benoit MD> Date Sonya Oh Signature: Date (if applicable) CC: Britta Curtis DO Work Phone: Start: 01-26-2022 End: 03-20-2022 Dance Director Office Visit Report Procedure Note: See Note; NOTES: [facility] [address] [place] [address] OFFICE VISIT Date of Service: 01/26/22 MR#: [id number] Acct: [id number] Name: PRISCILA NGO Rep #: [id number] : 1985 Provider: Dr. Kate Steele DO Age/Sex: 36/F Location: [facility] [place] Status: Signed Intake Vital Signs 10/01/21 15:22 01/26/22 15:28 Height 5 ft 5 in 5 ft Weight: 149 lb 8 oz BMI 29.2 BP 126/76 H Intake Visit Reasons: 27 WK OB/GLUCOSE Leach Cell Operator Required: No Is patient in pain?: No [...] home: Yes additional social history: Trang- Patient Munguiaalejandra Marley 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 Date Name GA/Weeks Outcome Route Bth Weight Gen [facility] F[facility]/16/20 Meron 40 live - full term Female epidural [facility] Tiffany Delivery Date: 07/16/20 Last Updated by: Sathya English arrest of descent HPI 27 WK OB/GLUCOSE Details: PRISCILA NGO is a 36 year old who presents [...] list details Initial Weight: 139 lb Date -???-???-???-???-???-???-?? ?-???-???-???-???-???- EGA Weight BP Urine Prot -???-???-???-???-???-???-?? ?-???-???-???-???-???- Glucose FHR FuHt Pres Dilation -???-???-???-???-???-???-?? ?-???-???-???-???-???- Effaced St Visit Note 09/16/21 -???-???-???-???-???-???-?? ?-???-???-???-???-???- 9w 1d 139 lb (+0 oz) 120/86 -???-???-???-???-???-???-?? ?-???-???-???-???-???- 170 -???-???-???-???-???-???-?? ?-???-???-???-???-???- SM- CRL cons with LMP SM- CRL 2.6cm cons with LMP 10/01/21 -???-???-???-???-???-???-?? ?-???-???-???-???-???- 11w 2d 144 lb (+5 lb) 114/80 -???-???-???-???-???-???-?? ?-???-???-???-???-???- 145 -???-???-???-???-???-???-?? ?-???-???-???-???-???- SM- no vb cr amping 10/29/21 -???-???-???-???-???-???-?? ?-???-???-???-???-???- 15w 2d 144 lb 6 oz (+5 lb 6 oz) 118/78 Negative -???-???-???-???-???-???-?? ?-???-???-???-???-???- Negative 150 -???-???-???-???-???-???-?? ?-???-???-???-???-???- JV- no lof, vaginal bleeding, or cramping. test pos for opiods was likely due to eating poppy seeds. Pt reassured. follow up test was neg. anatomy scan ordered. 11/26/21 -???-???-???-???-???-???-?? ?-???-???-???-???-???- 19w 2d 143 lb 4 oz (+4 lb 4 oz) 114/70 Negative -???-???-???-???-???-???-?? ?-???-???-???-???-???- Negative 150 -???-???-???-???-???-???-?? ?-???-???-???-???-???- SM- no vb lo f good fm still having emesis but stable. 12/24/21 -???-???-???-???-???-???-?? ?-???-???-???-???-???- 23w 2d 148 lb 2 oz (+9 lb 2 oz) 118/78 Negative -???-???-???-???-???-???-?? ?-???-???-???-???-???- Negative 145 23 -???-???-???-???-???-???-?? ?-???-???-???-???-???- JV- pt has y east infetion today. requesting diflucan. pepcid and meclazine ordered. will be going [place] 01/26/22 -???-???-???-???-???-???-?? ?-???-???-???-???-???- 28w 0d 149 lb 8 oz (+10 lb 8 oz) 126/76 Negative -???-???-???-???-???-???-?? ?-???-???-???-???-???- Negative 145 29 -???-???-???-???-???-???-?? ?-???-???-???-???-???- JV- received rhogam, tdap, and needs to [...] Route Admin Location Lot Number Expiration Date [facility] Manufactu rer 1,500 unit IM left gluteus [id number] 04/09/23 8141-4714-43 [employer] Results POC Urinalysis 2 Dip (Clinic) Office Urine Glucose Negative Last Edit by Brittany Murphy on 01/26/22 15:41 Office Urine Protein Negative Last Edit by Brittany Murphy on 01/26/22 15:41 Immunizations Adacel(Tdap Adolesn/Adult)(PF) Performing Provider: Kate Small DO Administered by: Brittany Murphy on 01/26/22 15:49 Dose Route Admin Location Lot Number Expiration Date [facility] Manufactu rer 0.5 mL IM Left Deltoid [id number] 09/03/23 70516-481-78 [employer] VIS Given Date VIS Provided VIS [...] Kate Small DO> Date Kate Small DO [facility] Signature: Date (if applicable) CC: Britta Acevedo DO Work Phone: Start: 12-24-2021 End: 12-24-2021 Dance Director Office Visit Report Procedure Note: See Note; NOTES: [facility] [address] [facility] [place] [address] OFFICE VISIT Date of Service: 12/24/21 MR#: [id number] Acct: [id number] Name: PRISCILA NGO Rep #: [id number] : 1985 Provider: Dr. Kate Steele DO Age/Sex: 36/F Location: [facility] [place] Status: Signed Intake Vital Signs 12/24/21 10:50 Height 5 ft Weight: 148 lb 2 oz BMI 28.9 BP 118/78 Intake Visit Reasons: 23 WK OB Leach Cell Operator Required: No Is patient in pain?: No Allergies amoxicillin Adverse Reaction (Mild, Verified 12/24/21 10:51) Vomiting erythromycin base Adverse Reaction (Mild, Verified 12/24/21 10:51) Vomiting azithromycin Adverse Reaction (Verified 12/24/21 10:51) Vomiting Medications albuterol sulfate 90 mcg/actuation aerosol inhaler 1 puff INHALATION Q6H PRN 07/29/19 [History Confirmed 12/24/21] PNV 883-muzjy-cxbcn-3-fish oil 2 ea PO DAILY 07/15/20 [History [...] at home: Yes 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 Date Name GA/Weeks Outcome Route Bth Weight Gen Labor Lgth Anesthesia Del [facility] Provider FOB 07/16/20 Meron 40 live - full term Female epidural [facility] Tiffany Delivery Date: 07/16/20 arrest of descent Sathya English HPI 23 WK OB Details: PRISCILA NGO is a 36 year old who presents [...] list details Initial Weight: 139 lb Date -???-???-???-???-???-???-?? ?-???-???-???-???-???- EGA Weight BP Urine Prot -???-???-???-???-???-???-?? ?-???-???-???-???-???- Glucose FHR FuHt Pres Dilation -???-???-???-???-???-???-?? ?-???-???-???-???-???- Effaced St Visit Note 09/16/21 -???-???-???-???-???-???-?? ?-???-???-???-???-???- 9w 1d 139 lb (+0 oz) 120/86 -???-???-???-???-???-???-?? ?-???-???-???-???-???- 170 -???-???-???-???-???-???-?? ?-???-???-???-???-???- SM- CRL cons with LMP SM- CRL 2.6cm cons with LMP 10/01/21 -???-???-???-???-???-???-?? ?-???-???-???-???-???- 11w 2d 144 lb (+5 lb) 114/80 -???-???-???-???-???-???-?? ?-???-???-???-???-???- 145 -???-???-???-???-???-???-?? ?-???-???-???-???-???- SM- no vb cr amping 10/29/21 -???-???-???-???-???-???-?? ?-???-???-???-???-???- 15w 2d 144 lb 6 oz (+5 lb 6 oz) 118/78 Negative -???-???-???-???-???-???-?? ?-???-???-???-???-???- Negative 150 -???-???-???-???-???-???-?? ?-???-???-???-???-???- JV- no lof, vaginal bleeding, or cramping. test pos for opiods was likely due to eating poppy seeds. Pt reassured. follow up test was neg. anatomy scan ordered. 11/26/21 -???-???-???-???-???-???-?? ?-???-???-???-???-???- 19w 2d 143 lb 4 oz (+4 lb 4 oz) 114/70 Negative -???-???-???-???-???-???-?? ?-???-???-???-???-???- Negative 150 -???-???-???-???-???-???-?? ?-???-???-???-???-???- SM- no vb lo f good fm still having emesis but stable. 12/24/21 -???-???-???-???-???-???-?? ?-???-???-???-???-???- 23w 2d 148 lb 2 oz (+9 lb 2 oz) 118/78 Negative -???-???-???-???-???-???-?? ?-???-???-???-???-???- Negative 145 23 -???-???-???-???-???-???-?? ?-???-???-???-???-???- JV- pt has y east infetion today. requesting diflucan. pepcid and meclazine ordered. will be going to [place] for vacation ACOG First Trimester First Trimester: [...] Kate Small DO> Date Kate Small DO Cosign Signature: Date (if applicable) CC: Britta Acevedo DO Work Phone: Start: 11-26-2021 End: 11-26-2021 Dance Director Office Visit Report Procedure Note: See Note; NOTES: [facility] [address] [place] [address]. [address] [place] [address] OFFICE VISIT Date of Service: 11/26/21 MR#: [id number] Acct: [id number] Name: PRISCILA NGO Rep #: [id number] : 1985 Provider: Dr. Sonya valentino MD Age/Sex: 36/F Location: [facility] [place] Status: Signed Intake Vital Signs 11/26/21 16:04 Height 5 ft 5 in Weight: 143 lb 4 oz BMI 23.8 BP 114/70 Intake Visit Reasons: 19 WK OB Leach Cell Operator Required: No Is patient in pain?: No Allergies amoxicillin Adverse Reaction (Mild, Verified 11/26/21 16:04) Vomiting erythromycin base Adverse Reaction (Mild, Verified 11/26/21 16:04) Vomiting azithromycin Adverse Reaction (Verified 11/26/21 16:04) Vomiting Medications albuterol sulfate 90 mcg/actuation aerosol inhaler 1 puff INHALATION Q6H PRN 07/29/19 [History Confirmed 11/26/21] PNV 384-jggyi-csmsn-3-fish oil 2 ea PO DAILY 07/15/20 [History [...] at home: Yes 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 Date Name GA/Weeks Outcome Route Bth Weight Gen Labor Lgth Anesthesia Del Locatn Provider FOB 07/16/20 Meron 40 live - full term Female epidural [facility] Tiffany Delivery Date: 07/16/20 arrest of descent Sathya English HPI 19 WK OB Details: PRISCILA NGO is a 36 year old who presents [...] list details Initial Weight: 139 lb Date -???-???-???-???-???-???-?? ?-???-???-???-???-???- EGA Weight BP Urine Prot -???-???-???-???-???-???-?? ?-???-???-???-???-???- Glucose FHR FuHt Pres Dilation -???-???-???-???-???-???-?? ?-???-???-???-???-???- Effaced St Visit Note 09/16/21 -???-???-???-???-???-???-?? ?-???-???-???-???-???- 9w 1d 139 lb (+0 oz) 120/86 -???-???-???-???-???-???-?? ?-???-???-???-???-???- 170 -???-???-???-???-???-???-?? ?-???-???-???-???-???- SM- CRL cons with LMP SM- CRL 2.6cm cons with LMP 10/01/21 -???-???-???-???-???-???-?? ?-???-???-???-???-???- 11w 2d 144 lb (+5 lb) 114/80 -???-???-???-???-???-???-?? ?-???-???-???-???-???- 145 -???-???-???-???-???-???-?? ?-???-???-???-???-???- SM- no vb cr amping 10/29/21 -???-???-???-???-???-???-?? ?-???-???-???-???-???- 15w 2d 144 lb 6 oz (+5 lb 6 oz) 118/78 Negative -???-???-???-???-???-???-?? ?-???-???-???-???-???- Negative 150 -???-???-???-???-???-???-?? ?-???-???-???-???-???- JV- no lof, vaginal bleeding, or cramping. test pos for opiods was likely due to eating poppy seeds. Pt reassured. follow up test was neg. anatomy scan ordered. 11/26/21 -???-???-???-???-???-???-?? ?-???-???-???-???-???- 19w 2d 143 lb 4 oz (+4 lb 4 oz) 114/70 -???-???-???-???-???-???-?? ?-???-???-???-???-???- 150 -???-???-???-???-???-???-?? ?-???-???-???-???-???- SM- no vb lo f good fm [...] POC Urinalysis 2 Dip (Clinic) Today 11/26/21 2696 <Electronically signed by Sonya Benoit MD> Date Sonya Oh Signature: Date (if applicable) CC: Britta Curtis DO Work Phone: Start: 10-29-2021 End: 10-29-2021 Dance Director Office Visit Report Procedure Note: See Note; NOTES: [facility] [address] [place], [place] [address] OFFICE VISIT Date of Service: 10/29/21 MR#: [id number] Acct: [id number] Name: PRISCILA NGO Rep #: [id number] : 1985 Provider: Dr. Kate Steele DO Age/Sex: 36/F Location: [facility] [place] Status: Signed Intake Vital Signs 10/29/21 15:52 Height 5 ft 5 in Weight: 144 lb 6 oz BMI 24.0 BP 118/78 Intake Visit Reasons: 15 WK OB Leach Cell Operator Required: No Is patient in pain?: No Allergies amoxicillin Adverse Reaction (Mild, Verified 10/29/21 15:53) Vomiting erythromycin base Adverse Reaction (Mild, Verified 10/29/21 15:53) Vomiting azithromycin Adverse Reaction (Verified 10/29/21 15:53) Vomiting Medications albuterol sulfate 90 mcg/actuation aerosol inhaler 1 puff INHALATION Q6H PRN 07/29/19 [History Confirmed 10/29/21] PNV 494-ofvwa-cobmj-3-fish oil 2 ea PO DAILY 07/15/20 [History [...] at home: Yes 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 Date Name GA/Weeks Outcome Route Bth Weight Infant Gen Labor Lgth Anesthesia Del Locatn Provider FOB 07/16/20 Meron 40 live - full term Female epidural [facility] Tiffany Delivery Date: 07/16/20 arrest of descent Sathya English HPI 15 WK OB Details: PRISCILA NGO is a 36 year old who presents [...] list details Initial Weight: 139 lb Date -???-???-???-???-???-???-?? ?-???-???-???-???-???- EGA Weight BP Urine Prot -???-???-???-???-???-???-?? ?-???-???-???-???-???- Glucose FHR FuHt Pres Dilation -???-???-???-???-???-???-?? ?-???-???-???-???-???- Effaced St Visit Note 09/16/21 -???-???-???-???-???-???-?? ?-???-???-???-???-???- 9w 1d 139 lb (+0 oz) 120/86 -???-???-???-???-???-???-?? ?-???-???-???-???-???- 170 -???-???-???-???-???-???-?? ?-???-???-???-???-???- SM- CRL cons with LMP SM- CRL 2.6cm cons with LMP 10/01/21 -???-???-???-???-???-???-?? ?-???-???-???-???-???- 11w 2d 144 lb (+5 lb) 114/80 -???-???-???-???-???-???-?? ?-???-???-???-???-???- 145 -???-???-???-???-???-???-?? ?-???-???-???-???-???- SM- no vb cr amping 10/29/21 -???-???-???-???-???-???-?? ?-???-???-???-???-???- 15w 2d 144 lb 6 oz (+5 lb 6 oz) 118/78 Negative -???-???-???-???-???-???-?? ?-???-???-???-???-???- Negative 150 -???-???-???-???-???-???-?? ?-???-???-???-???-???- JV- no lof, vaginal bleeding, or cramping. [...] DO Work Phone: Start: 10-01-2021 End: 10-01-2021 Dance Director Office Visit Report Procedure Note: See Note; NOTES: [facility] [address] [place] [address] OFFICE VISIT Date of Service: 10/01/21 MR#: [id number] Acct: [id number] Name: PRISCILA NGO Rep #: [id number] : 1985 Provider: Dr. Sonya valentino MD Age/Sex: 36/F Location: [facility] [place] Status: Signed Intake Vital Signs 10/01/21 15:22 Height 5 ft 5 in Weight: 144 lb BMI 23.9 BP 114/80 Intake Visit Reasons: 11WK OB Chief Complaint: est ob Leach Cell Operator Required: No Is patient in pain?: No Allergies amoxicillin Adverse Reaction (Mild, Verified 10/01/21 15:22) Vomiting erythromycin base Adverse Reaction (Mild, Verified 10/01/21 15:22) Vomiting azithromycin Adverse Reaction (Verified 10/01/21 15:22) Vomiting Medications albuterol sulfate 90 mcg/actuation aerosol inhaler 1 puff INHALATION Q6H PRN 07/29/19 [History Confirmed 10/01/21] PNV 160-ywtsv-jfwgo-3-fish oil 2 ea PO DAILY 07/15/20 [History [...] at home: Yes 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 Date Name GA/Weeks Outcome Route Bth Weight Infant Gen Labor Lgth Anesthesia Del Locatn Provider FOB 07/16/20 Meron 40 live - full term Female epidural [facility] Tiffany Delivery Date: 07/16/20 arrest of descent Sathya English HPI 11WK OB Details: PRISCILA NGO is a 36 year old who presents [...] list details Initial Weight: 139 lb Date -???-???-???-???-???-???-?? ?-???-???-???-???-???- EGA Weight BP Urine Prot -???-???-???-???-???-???-?? ?-???-???-???-???-???- Glucose FHR FuHt Pres Dilation -???-???-???-???-???-???-?? ?-???-???-???-???-???- Effaced St Visit Note 09/16/21 -???-???-???-???-???-???-?? ?-???-???-???-???-???- 9w 1d 139 lb (+0 oz) 120/86 -???-???-???-???-???-???-?? ?-???-???-???-???-???- 170 -???-???-???-???-???-???-?? ?-???-???-???-???-???- SM- CRL cons with LMP SM- CRL 2.6cm cons with LMP 10/01/21 -???-???-???-???-???-???-?? ?-???-???-???-???-???- 11w 2d 144 lb (+5 lb) 114/80 -???-???-???-???-???-???-?? ?-???-???-???-???-???- 145 -???-???-???-???-???-???-?? ?-???-???-???-???-???- SM- no vb cr amping ACOG First [...] Britta Acevedo DO Work Phone: Start: 10-01-[address] Britta Acevedo Work Phone: Start: 09-16-[address] 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 [place], [place] [id number] OFFICE VISIT Date of Service: 09/16/21 MR#: [id number] Acct: [id number] Name: PRISCILA NGO Rep #: [id number] : 1985 Provider: Dr. Sonya valentino MD Age/Sex: 36/F Location: [facility] [place] Status: Signed Intake Vital Signs 09/16/21 11:12 09/16/21 11:20 Height 5 ft 5 in Weight: 139 lb BMI 23.1 BP 120/86 H Intake Visit Reasons: NOB LMP 07/14 Chief Complaint: NEW OB LMP 07/14 Leach Cell Operator Required: No Is patient in pain?: No Allergies amoxicillin Adverse Reaction (Mild, Verified 09/09/21 15:34) Vomiting erythromycin base Adverse Reaction (Mild, Verified 09/09/21 15:34) Vomiting azithromycin Adverse Reaction (Verified 09/09/21 15:34) Vomiting Medications albuterol sulfate 90 mcg/actuation aerosol inhaler 1 puff INHALATION Q6H PRN 07/29/19 [History Confirmed 09/16/21] PNV 144-hclvl-cmyle-3-fish oil 2 ea PO DAILY 07/15/20 [History [...] at home: Yes 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 Date Name GA/Weeks Outcome Route Bth Weight Gen [facility]/20 Meron 40 live - full term Female epidural [facility] Tiffany Delivery Date: 07/16/20 arrest of descent Sathya English HPI NOB LMP 07/14 Details: PRISCILA NGO is a 36 year old who presents [...] list details Initial Weight: 139 lb Date -???-???-???-???-???-???-?? ?-???-???-???-???-???- EGA Weight BP Urine Prot -???-???-???-???-???-???-?? ?-???-???-???-???-???- Glucose FHR FuHt Pres Dilation -???-???-???-???-???-???-?? ?-???-???-???-???-???- Effaced St Visit Note 09/16/21 -???-???-???-???-???-???-?? ?-???-???-???-???-???- 9w 1d 139 lb (+0 oz) 120/86 -???-???-???-???-???-???-?? ?-???-???-???-???-???- 170 -???-???-???-???-???-???-?? ?-???-???-???-???-???- SM- CRL cons with LMP SM- CRL [...] allergies (prn med), Drug/latex allergies/reactions (as noted), Legal Collector surgery (c section) and Operations/hospitalizations (c section) [...] Britta Acevedo DO Work Phone: Start: 09-10-[address] Britta Acevedo Work Phone: Start: 09-10-2021 End: 09-10-2021 Transvaginal w/Preg US Procedure Note: See Note; NOTES: [facility] [address] [place] [address] Transvaginal w/Preg US MR#: [id number] Acct: [id number] Name: PRISCILA NGO Rep #: [id number] [phone] : 1985 F 36 From: Shiraz ewing MD PCP: Dr. Britta Acevedo DO Status: REG CLI Study: Transvaginal w/Preg US Date of Exam: 09/10/21 Exam# [id number] Ordering Dr: Ana Cristina Roe ADMINISTRATIVE OFFICE SPECIALIST ADMINISTRATIVE OFFICE SPECIALIST -C INDICATION: well being EXAMINATION: US OB [...] CC: RASTA Roe; Dr. Britta Acevedo DO Assembler Molded Frames: Signed Britta Acevedo DO Work Phone: Start: 09-09-2021 End: 09-09-2021 Office Visit Report Procedure Note: See Note; NOTES: [address] [place] [address] OFFICE VISIT Date of Service: 09/09/21 MR#: [id number] Acct: [id number] Patient: PRISCILA NGO Rep # : [id number] : 1985 Provider: RASTA avendaño Age/Sex: 36/F Location: [facility] [place] Status: Signed Intake Vital Signs 09/09/21 15:33 Height 5 ft 5 in Weight: 140 lb BMI 23.3 Intake Visit Reasons: Rhogam Chief Complaint: est ob Leach Cell Operator Required: No Is patient in pain?: No Allergies amoxicillin Adverse Reaction (Mild, Verified 09/09/21 15:34) Vomiting erythromycin base Adverse Reaction (Mild, Verified 09/09/21 15:34) Vomiting azithromycin Adverse Reaction (Verified 09/09/21 15:34) Vomiting Medications albuterol sulfate 90 mcg/actuation aerosol inhaler 1 puff INHALATION Q6H PRN 07/29/19 [History Confirmed 09/09/21] PNV 991-uwaqh-xsdvk-3-fish oil 2 ea PO DAILY 07/15/20 [History Confirmed 09/09/21] Is last menstrual period known: Yes Post menopausal: No Patient : Yes Current gender identity: female Office Procedures Injections Procedure performed by: Sathya English Lot number: [id number] Plant Specialist: Kedrion date: 07/09/22 Dose of injection: 1500U Site 2 of injection: left gluteal IM Medication Given: Yes Results POC Urinalysis Dip (Clinic) Office Urine Color Straw Last Edit by Sathya English on 09/09/21 15:50 Office Urine Clarity Hazy Last Edit by Sathya English on 09/09/21 15:50 Office Urine Glucose Negative Last Edit by Sathya English on 09/09/21 15:50 Office Urine Ketones Negative Last Edit by Sathya English on 09/09/21 15:50 Off Ur Spec [place] 1.005 Last Edit by Sathya English on 09/09/21 15:50 Office Urine pH Last Edit by Sathya English on 09/09/21 15:50 Office Urine Bilirubin Negative Last Edit by Sathya English on 09/09/21 15:50 Office Urine Urobilinogen Negative Last Edit by Sathya English on 09/09/21 15:50 Office Urine Blood Trace Last Edit by Sathya English on 09/09/21 15:50 Office Urine Blood Hemolyzed Last Edit by Sathya English on 09/09/21 15:50 Office Urine Protein Negative Last Edit by Sathya English on 09/09/21 15:50 Office Urine Nitrate Negative Last Edit by Sathya English on 09/09/21 15:50 Off Ur Leukocytes Positive Last Edit by Sathya English on 09/09/21 15:50 09/09/21 1604 <Electronically signed by Ana Cristina Roe NP ADMINISTRATIVE OFFICE SPECIALIST-C> Date Ana Cristina Oh Signature: Date (if applicable) CC: Britta Acevedo DO Work Phone: Start: 09-09-[address] Britta Acevedo Work Phone: Start: 06-16-2021 End: 06-16-2021 Dance Director Office Visit Report Procedure Note: See Note; NOTES: [facility] 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 Details: PRISCILA NGO is a 36 year old who presents for IUD removal. Father passed from cancer last week, although receiving chemo was doing well and was actually in [place] when became ill, was able to get [...] Weight Infant Gen Labor Lgth Anesthesia [facility] Provider FOB 07/16/20 Meron 40 live - full term Female epidural [facility] Tiffany Delivery Date: 07/16/20 arrest of descent Sathya English Const Constitutional: Reports system reviewed and [...] Z30.432 Plan - Ana Cristina Roe NP, ADMINISTRATIVE OFFICE SPECIALIST-C: Continue PNV Condoms until ready to conceive Call with first positive test. RTO prn 06/16/21 0958 <Electronically signed by Ana Cristina Roe NP ADMINISTRATIVE OFFICE SPECIALIST-C> Date Ana Cristina Roe NP ADMINISTRATIVE OFFICE SPECIALIST-C Cosigner Signature: Date (if applicable) CC: Britta Acevedo DO Work Phone: Start: 10-14-2020 End: 10-14-2020 Dance Director Office Visit Report Procedure Note: See Note; NOTES: [facility] [address] [place] [address]. [address] [place] [address] OFFICE VISIT Date of Service: 10/14/20 MR#: [id number] Acct: [id number] Name: PRISCILA NGO Rep #: [id number] : 1985 Provider: Dr. 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: Details: PRISCILA NGO is a 35 year old who presents [...] 40 live - full term Female epidural [facility] Tiffany Delivery Date: 07/16/20 arrest of descent Sathya English ROS Const Constitutional: Reports system reviewed [...] intertrigo B37.2 Plan - Ana Cristina Roe NP, ADMINISTRATIVE OFFICE SPECIALIST-C IUD properly placed Rx clotrimazole RTO annual exam, prn Medications New: clotrimazole 1% 1 applic topical BID 2 weeks 30 grams 0RF Coding Level of Care Code Off vis,est,level 3 Diagnoses IUD check up Z30.431 Monilial intertrigo B37.2 10/14/20 1714 <Electronically signed by Aparna Allen MD> Date Aparna Allen MD 10/14/20 1208<Electronically signed by Ana Cristina Roe NP ADMINISTRATIVE OFFICE SPECIALIST-C> Cosigner Signature: Date (if applicable) Ana Cristina Roe NP ADMINISTRATIVE OFFICE SPECIALIST-C CC: Britta Acevedo DO Work Phone: Start: 09-04-2020 End: 09-04-2020 Dance Director Office Visit Report Procedure Note: See Note; NOTES: [facility] [address] [place] [address] OFFICE VISIT Date of Service: 09/04/20 MR#: [id number] Acct: [id number] Name: PRISCILA NGO Rep #: [id number] : 1985 Provider: Dr. Aparna eller MD Age/Sex: 35/F Location: [facility] Status: Signed Intake Vital Signs 09/04/20 Height 5 ft 5 in 09/04/20 Weight: 148 lb 6 oz 09/04/20 BP 110/90 H Intake Visit Reasons: IUD insertion Leach Cell Operator Required: No Is patient in pain?: No [...] MA at [facility] Pregancy History 1 Elective abortions Hx Para 1 Spontaneous abortions Hx # Term Pregnancies 1 Ectopic pregnancies Hx # Pregnancies Multiple births # of living children 1 Past Pregnancies Del. Date Name GA/Weeks Outcome Route Bth Weight Infant Gen Labor [facility] FOB 07/16/20 Meron 40 live - full term Female epidural [facility] Tiffany Delivery Date: 07/16/20 arrest of descent Sathya English HPI IUD insertion: Details: PRISCILA NGO is a 35 year old who presents [...] for IUD insertion Z30.430 Additional Codes IUD ([id number]) 09/04/20 1215 <Electronically signed by Aparna Allen MD> Date Aparna Allen MD Cosigner Signature: Date (if applicable) CC: Britta Acevedo DO Work Phone: Start: 08-21-2020 End: 08-21-2020 Dance Director Office Visit Report Procedure Note: See Note; NOTES: [facility] [address] [place] [address] OFFICE VISIT Date of Service: 08/21/20 MR#: [id number] Acct: [id number] Name: PRISCILA NGO Rep #: [id number] : 1985 Provider: Dr. Aparna eller MD Age/Sex: 35/F Location: [facility] [place] Status: Signed Intake Vital Signs 08/21/20 Height 5 ft 5 in 08/21/20 Weight: 148 lb 2 oz 08/21/20 BP 128/86 H Intake Visit Reasons: 6WK PP / DECLINED iud. EARLY DUE KADEN TIME Leach Cell Operator Required: No Is patient in pain?: No [...] MA at [facility] Pregancy History 1 Elective abortions Hx Para 1 Spontaneous abortions Hx # Term Pregnancies 1 Ectopic pregnancies Hx # Pregnancies Multiple births # of living children 1 Past Pregnancies Del. Date Name GA/Weeks Outcome Route Bth Weight Gen Labor Lgth Anesthesia Del Locatn Provider FOB 07/16/20 Meron 40 live - full term Female epidural [facility] Tiffany Delivery Date: 07/16/20 arrest of descent Sathya English Depression Screen PHQ-2/9 If score is 2 or greater, continue Source: Developed by Drs. Girma Hannah, Leticia Mijares, Rohith Cross and colleagues, with an educational ute from [employer]. Scoring: Total Score Depression Severity Action 1-4 Minimal depression No action needed 5-9 Mild depression Repeat PHQ-9 at follow up 10-14 Moderate depression Make tx plan,consider counseling, fup, prescription 15-19 Moderately severe depression Prescribe drugs and counseling immediately 20-27 Severe depression If poor response, refer pt to mental health specialist Post HPI 6WK PP / DECLINED iud. EARLY DUE KADEN TIME: Details: PRISCILA NGO is a 35 year old who presents for her post visit. Bleeding initially stopped then had full bleeding around New Years. Baby has stopped latching, so she is now primarily pumping breast milk. Reports feeling like her lower abdomen is somewhat swollen. Denies symptoms of anxiety and depression. Feeding: Breast Menses resumed: Yes [place] since delivery: No Emotional Support: Yes Last [...] DO Work Phone: Start: 08-05-2020 End: 08-05-2020 Dance Director Office Visit Report Procedure Note: See Note; NOTES: [facility] [address] [place] [address]. [address] [place] [address] OFFICE VISIT Date of Service: 08/05/20 MR#: [id number] Acct: [id number] Name: PRISCILA NGO Rep #: [id number] : 1985 Provider: Dr. Aparna eller MD Age/Sex: 35/F Location: [facility] Status: Signed Intake Vital Signs 08/05/20 Weight: 142 lb 8 oz 08/05/20 BP 112/70 Intake Visit Reasons: left groin pain Leach Cell Operator Required: No Is patient in pain?: Yes [...] menopausal: No Patient : No : Yes [facility] Surgical History Delivery by section (Acute) History [...] MA at [facility] HPI left groin pain: Details: PRISCILA NGO is a 35 year old who presents [...] 40 live - full term Female epidural [facility] Tiffany Delivery Date: 07/16/20 arrest of descent Sathya English Constitutional: Denies chills or fever(s) GI GI: [...] 3 Diagnoses Left groin pain R10.32 08/05/20 7031 <Electronically signed by Aparna Allen MD> Date Aparna Allen MD Cosigner Signature: Date (if applicable) CC: Britta Acevedo DO Work Phone: Start: 07-28-2020 End: 07-28-2020 Dance Director Office Visit Report Procedure Note: See Note; NOTES: [facility] [address] [place] [address] OFFICE VISIT Date of Service: 07/28/20 MR#: [id number] Acct: [id number] Name: PRISCILA NGO Rep #: [id number] : 1985 Provider: RASTA avendaño Age/Sex: 35/F Location: [facility] Status: Signed Intake Vital Signs 07/28/20 Weight: 144 lb 07/28/20 BP 118/74 Intake Visit Reasons: 2WK INCISION CHECK Leach Cell Operator Required: No Accompanied by: self Is patient [...] @ 10:00 by Ana Cristina Roe NP, ADMINISTRATIVE OFFICE SPECIALIST-C) Smoking Status: Never smoker alcohol intake: current details: pre- substance use type: does not use caffeine: Yes what type of physical activity do you participate in: walking frequency: 3-4 times per week seatbelt use: always do you feel safe at home: Yes additional social history: [employer]ang- 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 Postop check Z09 Plan Routine pp care RTO 4 weeks Coding Level of Care Code No Charge Diagnoses Postop check Z09 07/28/20 1000 <Electronically signed by Ana Cristina Roe NP ADMINISTRATIVE OFFICE SPECIALIST-C> Date Ana Cristina Roe NP ADMINISTRATIVE OFFICE SPECIALIST-C Cosigner Signature: Date (if applicable) CC: Britta Acevedo DO Work Phone: Start: 07-10-2020 End: 07-14-2020 OB Limited With Biometrics Comments: See Note; NOTES: [facility] [address] [address] OB Limited With Biometrics MR#: [id number] Acct: [id number] Name: PRISCILA NGO Rep #: [id number] : 1985 F 35 From: Federica Wellington MD PCP: Dr. Britta Acevedo, DO Status: REG CLI Study: OB Limited With Biometrics Date of Exam: 07/10 Exam# [id number] Ordering Dr: Sonya Benoit STUDY: SECOND AND [...] Britta Acevedo DO; Dr. Sonya Benoit MD Assembler Molded Frames: Signed Britta Acevedo Start: 07-10-2020 End: 07-10-2020 Dance Director Office Visit Report Comments: See Note; NOTES: [facility] [address] [place] [address]. [address] [place] [address] OFFICE VISIT Date of Service: 07/10/20 MR#: [id number] Acct: [id number] Name: PRISCILA NGO Rep #: [id number] : 1985 Provider: Dr. Sonya valentino MD Age/Sex: 35/F Location: [facility] [place] Status: Signed Intake Vital Signs 07/10/20 Height 5 ft 5 in 07/10/20 Weight: 157 lb 07/10/20 BMI 26.1 07/10/20 BP 120/88 H Intake Visit Reasons: 39 WK OB Chief Complaint: est ob Leach Cell Operator Required: No Is patient in pain?: No [...] MA at [facility] Pregancy History 1 Elective abortions Hx Para Spontaneous abortions Hx # Term Pregnancies Ectopic pregnancies Hx # Pregnancies Multiple births # of living children HPI 39 WK OB: Details: PRISCILA NGO is a 35 year old who presents [...] list details Initial Weight: 130 lb Date -???-???-???-???-???-???-?? ?-???-???-???-???-???- EGA Weight BP Urine Prot -???-???-???-???-???-???-?? ?-???-???-???-???-???- Glucose FHR FuHt Pres Dilation -???-???-???-???-???-???-?? ?-???-???-???-???-???- Effaced St Visit Note 01/17/20 -???-???-???-???-???-???-?? ?-???-???-???-???-???- 14w 6d 129 lb 6 oz (-10 oz) 120/78 Negative -???-???-???-???-???-???-?? ?-???-???-???-???-???- Negative 151 -???-???-???-???-???-???-?? ?-???-???-???-???-???- -No sharyn Aguilar. Still struggling with N V:filemon Rx. 02/10/20 -???-???-???-???-???-???-?? ?-???-???-???-???-???- 18w 2d 132 lb 2 oz (+2 lb 2 oz) 120/70 Negative -???-???-???-???-???-???-?? ?-???-???-???-???-???- Negative 150 -???-???-???-???-???-???-?? ?-???-???-???-???-???- SM- no vb cr amping doing well overall 03/24/20 -???-???-???-???-???-???-?? ?-???-???-???-???-???- 24w 3d 140 lb 8 oz (+10 lb 8 oz) 118/78 Negative -???-???-???-???-???-???-?? ?-???-???-???-???-???- Negative 145 24 -???-???-???-???-???-???-?? ?-???-???-???-???-???- SM- no vb lo f good fm scheduled us 04/24/20 -???-???-???-???-???-???-?? ?-???-???-???-???-???- 28w 6d 147 lb 2 oz (+17 lb 2 oz) 126/68 Negative -???-???-???-???-???-???-?? ?-???-???-???-???-???- Negative 145 28 -???-???-???-???-???-???-?? ?-???-???-???-???-???- SM- no vb lo f good fm no regular ctx 05/06/20 -???-???-???-???-???-???-?? ?-???-???-???-???-???- 30w 4d 150 lb 4 oz (+20 lb 4 oz) 138/80 Negative -???-???-???-???-???-???-?? ?-???-???-???-???-???- Negative 140 30 -???-???-???-???-???-???-?? ?-???-???-???-???-???- GP - No lof, VB, dfm, ctx. Denies complaints. GP - No lof, VB, dfm, ctx. Denies complaints. CB classes this weekend. 05/22/20 -???-???-???-???-???-???-?? ?-???-???-???-???-???- 32w 6d 150 lb (+20 lb) 124/66 Negative -???-???-???-???-???-???-?? ?-???-???-???-???-???- Negative 135 32 -???-???-???-???-???-???-?? ?-???-???-???-???-???- SM- no vb lo f good fm no regular ctx discussed labor preferences. 06/05/20 -???-???-???-???-???-???-?? ?-???-???-???-???-???- 34w 6d 154 lb (+24 lb) 120/80 Negative -???-???-???-???-???-???-?? ?-???-???-???-???-???- Negative 130 34 -???-???-???-???-???-???-?? ?-???-???-???-???-???- GP - no LOF, VB, DFM, regular ctx. Considering Aparna vsNeetu Chance as names. 06/17/20 -???-???-???-???-???-???-?? ?-???-???-???-???-???- 36w 4d 158 lb (+28 lb) 104/84 Negative -???-???-???-???-???-???-?? ?-???-???-???-???-???- Negative 155 36 Cephalic 0 -???-???-???-???-???-???-?? ?-???-???-???-???-???- SM- no vb lo f good fm no regular ctx 06/26/20 -???-???-???-???-???-???-?? ?-???-???-???-???-???- 37w 6d 120/70 -???-???-???-???-???-???-?? ?-???-???-???-???-???- 140 37 Cephalic -???-???-???-???-???-???-?? ?-???-???-???-???-???- SM- covid ex chiquita mujica from her mother. recommend testing now and patient is quarantining. asymptomatic. no vb lof good fm, no regular ctx. 07/02/20 -???-???-???-???-???-???-?? ?-???-???-???-???-???- 38w 5d 157 lb 8 oz (+27 lb 8 oz) 110/80 Negative -???-???-???-???-???-???-?? ?-???-???-???-???-???- Negative 140 38 Cephalic 0 -???-???-???-???-???-???-?? ?-???-???-???-???-???- 40 -2 GP - no re gular ctx, LOF, VB, DFM. Cx remains closed. Discussed induction at 41 weeks unless spontaneous labor. 07/10/20 -???-???-???-???-???-???-?? ?-???-???-???-???-???- 39w 6d 157 lb (+27 lb) 120/88 Negative -???-???-???-???-???-???-?? ?-???-???-???-???-???- Negative 140 37 Cephalic 0 -???-???-???-???-???-???-?? ?-???-???-???-???-???- SM- no vb lo f good fm [...] Const General: cooperative, healthy appearing, comfortable, anxious [facility] Head: normal to inspection Nose: external [...] on 07/10/20 10:13 Assessment Plan Problems 1. Z34. 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 anatomy reviewed. 2. Supervision of normal first Z34.00 PRR ALVAREZ 07/11/2020 Girl Spouse: Trang 3. Asthma J45.909 singular, ProAir stable controlled by PCP 4. Rh negative status during O26.899; Z67.91 rhogam at 28 weeks and PRN 5. Influenza vaccine administered Z23 [id number] 6. 35 weeks gestation of Z3A.35 electronic [...] CC: Britta Acevedo Start: 07-02-2020 End: 07-02-2020 Dance Director Office Visit Report Comments: See Note; NOTES: [facility] [address] [place] [address] OFFICE VISIT Date of Service: 07/02/20 MR#: [id number] Acct: [id number] Name: PRISCILA NGO Rep #: [id number] : 1985 Provider: Dr. Aparna eller MD Age/Sex: 35/F Location: [facility] [place] Status: Signed Intake Vital Signs 07/02/20 Height 5 ft 5 in 07/02/20 Weight: 157 lb 8 oz 07/02/20 BP 110/80 Intake Visit Reasons: 38 WK OB Leach Cell Operator Required: No Is patient in pain?: No [...] MA at [facility] Pregancy History 1 Elective abortions Hx Para Spontaneous abortions Hx # Term Pregnancies Ectopic pregnancies Hx # Pregnancies Multiple births # of living children HPI 38 WK OB: Details: PRISCILA NGO is a 35 year old who presents [...] list details Initial Weight: 130 lb Date -???-???-???-???-???-???-?? ?-???-???-???-???-???- EGA Weight BP Urine Prot -???-???-???-???-???-???-?? ?-???-???-???-???-???- Glucose FHR FuHt Pres Dilation -???-???-???-???-???-???-?? ?-???-???-???-???-???- Effaced St Visit Note 01/17/20 -???-???-???-???-???-???-?? ?-???-???-???-???-???- 14w 6d 129 lb 6 oz (-10 oz) 120/78 Negative -???-???-???-???-???-???-?? ?-???-???-???-???-???- Negative 151 -???-???-???-???-???-???-?? ?-???-???-???-???-???- -No sharyn Aguilar. Still struggling with N V:filemon Rx. 02/10/20 -???-???-???-???-???-???-?? ?-???-???-???-???-???- 18w 2d 132 lb 2 oz (+2 lb 2 oz) 120/70 Negative -???-???-???-???-???-???-?? ?-???-???-???-???-???- Negative 150 -???-???-???-???-???-???-?? ?-???-???-???-???-???- SM- no vb cr amping doing well overall 03/24/20 -???-???-???-???-???-???-?? ?-???-???-???-???-???- 24w 3d 140 lb 8 oz (+10 lb 8 oz) 118/78 Negative -???-???-???-???-???-???-?? ?-???-???-???-???-???- Negative 145 24 -???-???-???-???-???-???-?? ?-???-???-???-???-???- SM- no vb lo f good fm scheduled us 04/24/20 -???-???-???-???-???-???-?? ?-???-???-???-???-???- 28w 6d 147 lb 2 oz (+17 lb 2 oz) 126/68 Negative -???-???-???-???-???-???-?? ?-???-???-???-???-???- Negative 145 28 -???-???-???-???-???-???-?? ?-???-???-???-???-???- SM- no vb lo f good fm no regular ctx 05/06/20 -???-???-???-???-???-???-?? ?-???-???-???-???-???- 30w 4d 150 lb 4 oz (+20 lb 4 oz) 138/80 Negative -???-???-???-???-???-???-?? ?-???-???-???-???-???- Negative 140 30 -???-???-???-???-???-???-?? ?-???-???-???-???-???- GP - No lof, VB, dfm, ctx. Denies complaints. GP - No lof, VB, dfm, ctx. Denies complaints. CB classes this weekend. 05/22/20 -???-???-???-???-???-???-?? ?-???-???-???-???-???- 32w 6d 150 lb (+20 lb) 124/66 Negative -???-???-???-???-???-???-?? ?-???-???-???-???-???- Negative 135 32 -???-???-???-???-???-???-?? ?-???-???-???-???-???- SM- no vb lo f good fm no regular ctx discussed labor preferences. 06/05/20 -???-???-???-???-???-???-?? ?-???-???-???-???-???- 34w 6d 154 lb (+24 lb) 120/80 Negative -???-???-???-???-???-???-?? ?-???-???-???-???-???- Negative 130 34 -???-???-???-???-???-???-?? ?-???-???-???-???-???- GP - no LOF, VB, DFM, regular ctx. Considering Aparna vsNeetu Chance as names. 06/17/20 -???-???-???-???-???-???-?? ?-???-???-???-???-???- 36w 4d 158 lb (+28 lb) 104/84 Negative -???-???-???-???-???-???-?? ?-???-???-???-???-???- Negative 155 36 Cephalic 0 -???-???-???-???-???-???-?? ?-???-???-???-???-???- SM- no vb lo f good fm no regular ctx 06/26/20 -???-???-???-???-???-???-?? ?-???-???-???-???-???- 37w 6d 120/70 -???-???-???-???-???-???-?? ?-???-???-???-???-???- 140 37 Cephalic -???-???-???-???-???-???-?? ?-???-???-???-???-???- SM- covid ex chiquita mujica from her mother. recommend testing now and patient is quarantining. asymptomatic. no vb lof good fm, no regular ctx. 07/02/20 -???-???-???-???-???-???-?? ?-???-???-???-???-???- 38w 5d 157 lb 8 oz (+27 lb 8 oz) 110/80 Negative -???-???-???-???-???-???-?? ?-???-???-???-???-???- Negative 140 38 Cephalic 0 -???-???-???-???-???-???-?? ?-???-???-???-???-???- 40 -2 GP - no re gular [...] at 4:30) 4. Influenza vaccine administered Z23 [id number] 5. Rh negative status during O26.899; Z67.91 [...] CC: Britta Acevedo Start: 06-26-2020 End: 06-26-2020 Dance Director Office Visit Report Comments: See Note; NOTES: [facility] [address] [place] [address] OFFICE VISIT Date of Service: 06/26/20 MR#: [id number] Acct: [id number] Name: NGOPRISCILA MALAGON ALBERT Rep #: [id number] : 1985 Provider: Dr. Sonya valentino MD Age/Sex: 35/F Location: [facility] [place] Status: Signed Intake Vital Signs 06/26/20 Height 5 ft 5 in 06/26/20 BP 120/70 Intake Visit Reasons: 37 WK OB Leach Cell Operator Required: No Is patient in pain?: No [...] MA at [facility] Pregancy History 1 Elective abortions Hx Para Spontaneous abortions Hx # Term Pregnancies Ectopic pregnancies Hx # Pregnancies Multiple births # of living children HPI 37 WK OB: Details: PRISCILA NGO is a 35 year old who presents [...] list details Initial Weight: 130 lb Date -???-???-???-???-???-???-?? ?-???-???-???-???-???- EGA Weight BP Urine Prot -???-???-???-???-???-???-?? ?-???-???-???-???-???- Glucose FHR FuHt Pres Dilation -???-???-???-???-???-???-?? ?-???-???-???-???-???- Effaced St Visit Note 01/17/20 -???-???-???-???-???-???-?? ?-???-???-???-???-???- 14w 6d 129 lb 6 oz (-10 oz) 120/78 Negative -???-???-???-???-???-???-?? ?-???-???-???-???-???- Negative 151 -???-???-???-???-???-???-?? ?-???-???-???-???-???- -No Lauren, sharyn ospina. Still struggling with N V:filemon Rx. 02/10/20 -???-???-???-???-???-???-?? ?-???-???-???-???-???- 18w 2d 132 lb 2 oz (+2 lb 2 oz) 120/70 Negative -???-???-???-???-???-???-?? ?-???-???-???-???-???- Negative 150 -???-???-???-???-???-???-?? ?-???-???-???-???-???- SM- no vb cr amping doing well overall 03/24/20 -???-???-???-???-???-???-?? ?-???-???-???-???-???- 24w 3d 140 lb 8 oz (+10 lb 8 oz) 118/78 Negative -???-???-???-???-???-???-?? ?-???-???-???-???-???- Negative 145 24 -???-???-???-???-???-???-?? ?-???-???-???-???-???- SM- no vb lo f good fm scheduled us 04/24/20 -???-???-???-???-???-???-?? ?-???-???-???-???-???- 28w 6d 147 lb 2 oz (+17 lb 2 oz) 126/68 Negative -???-???-???-???-???-???-?? ?-???-???-???-???-???- Negative 145 28 -???-???-???-???-???-???-?? ?-???-???-???-???-???- SM- no vb lo f good fm no regular ctx 05/06/20 -???-???-???-???-???-???-?? ?-???-???-???-???-???- 30w 4d 150 lb 4 oz (+20 lb 4 oz) 138/80 Negative -???-???-???-???-???-???-?? ?-???-???-???-???-???- Negative 140 30 -???-???-???-???-???-???-?? ?-???-???-???-???-???- GP - No lof, VB, dfm, ctx. Denies complaints. GP - No lof, VB, dfm, ctx. Denies complaints. CB classes this weekend. 05/22/20 -???-???-???-???-???-???-?? ?-???-???-???-???-???- 32w 6d 150 lb (+20 lb) 124/66 Negative -???-???-???-???-???-???-?? ?-???-???-???-???-???- Negative 135 32 -???-???-???-???-???-???-?? ?-???-???-???-???-???- SM- no vb lo f good fm no regular ctx discussed labor preferences. 06/05/20 -???-???-???-???-???-???-?? ?-???-???-???-???-???- 34w 6d 154 lb (+24 lb) 120/80 Negative -???-???-???-???-???-???-?? ?-???-???-???-???-???- Negative 130 34 -???-???-???-???-???-???-?? ?-???-???-???-???-???- GP - no LOF, VB, DFM, regular ctx. Considering Aparna vsNeetu Chance as names. 06/17/20 -???-???-???-???-???-???-?? ?-???-???-???-???-???- 36w 4d 158 lb (+28 lb) 104/84 Negative -???-???-???-???-???-???-?? ?-???-???-???-???-???- Negative 155 36 Cephalic 0 -???-???-???-???-???-???-?? ?-???-???-???-???-???- SM- no vb lo f good fm no regular ctx 06/26/20 -???-???-???-???-???-???-?? ?-???-???-???-???-???- 37w 6d 120/70 -???-???-???-???-???-???-?? ?-???-???-???-???-???- 140 37 Cephalic -???-???-???-???-???-???-?? ?-???-???-???-???-???- SM- covid ex posmonday from her mother. recommend testing now and [...] and PRN 5. Influenza vaccine administered Z23 [id number] 6. 35 weeks gestation of Z3A.35 electronic [...] CC: Britta Acevedo Start: 06-17-2020 End: 06-17-2020 Dance Director Office Visit Report Comments: See Note; NOTES: [facility] [address] [place] [address] OFFICE VISIT Date of Service: 06/17/20 MR#: [id number] Acct: [id number] Name: PRISCILA NGO Rep #: [id number] : 1985 Provider: Dr. 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 ?-???-???-???-???-???- EGA Weight BP Urine Prot -???-???-???-???-???-???-?? ?-???-???-???-???-???- Glucose FHR FuHt Pres Dilation -???-???-???-???-???-???-?? ?-???-???-???-???-???- Effaced St Visit Note 01/17/20 -???-???-???-???-???-???-?? ?-???-???-???-???-???- 14w 6d 129 lb 6 oz (-10 oz) 120/78 Negative -???-???-???-???-???-???-?? ?-???-???-???-???-???- Negative 151 -???-???-???-???-???-???-?? ?-???-???-???-???-???- MH-No Vb, cr amping. Still struggling with N V:zofran Rx. 02/10/20 -???-???-???-???-???-???-?? ?-???-???-???-???-???- 18w 2d 132 lb 2 oz (+2 lb 2 oz) 120/70 Negative -???-???-???-???-???-???-?? ?-???-???-???-???-???- Negative 150 -???-???-???-???-???-???-?? ?-???-???-???-???-???- SM- no vb cr amping doing well overall 03/24/20 -???-???-???-???-???-???-?? ?-???-???-???-???-???- 24w 3d 140 lb 8 oz (+10 lb 8 oz) 118/78 Negative -???-???-???-???-???-???-?? ?-???-???-???-???-???- Negative 145 24 -???-???-???-???-???-???-?? ?-???-???-???-???-???- SM- no vb lo f good fm scheduled us 04/24/20 -???-???-???-???-???-???-?? ?-???-???-???-???-???- 28w 6d 147 lb 2 oz (+17 lb 2 oz) 126/68 Negative -???-???-???-???-???-???-?? ?-???-???-???-???-???- Negative 145 28 -???-???-???-???-???-???-?? ?-???-???-???-???-???- SM- no vb lo f good fm no regular ctx 05/06/20 -???-???-???-???-???-???-?? ?-???-???-???-???-???- 30w 4d 150 lb 4 oz (+20 lb 4 oz) 138/80 Negative -???-???-???-???-???-???-?? ?-???-???-???-???-???- Negative 140 30 -???-???-???-???-???-???-?? ?-???-???-???-???-???- GP - No lof, VB, dfm, ctx. Denies complaints. GP - No lof, VB, dfm, ctx. Denies complaints. CB classes this weekend. 05/22/20 -???-???-???-???-???-???-?? ?-???-???-???-???-???- 32w 6d 150 lb (+20 lb) 124/66 Negative -???-???-???-???-???-???-?? ?-???-???-???-???-???- Negative 135 32 -???-???-???-???-???-???-?? ?-???-???-???-???-???- SM- no vb lo f good fm no regular ctx discussed labor preferences. 06/05/20 -???-???-???-???-???-???-?? ?-???-???-???-???-???- 34w 6d 154 lb (+24 lb) 120/80 Negative -???-???-???-???-???-???-?? ?-???-???-???-???-???- Negative 130 34 -???-???-???-???-???-???-?? ?-???-???-???-???-???- GP - no LOF, VB, DFM, regular ctx. Considering Aparna vs. Meron as names. 06/17/20 -???-???-???-???-???-???-?? ?-???-???-???-???-???- 36w 4d 158 lb (+28 lb) 104/84 Negative -???-???-???-???-???-???-?? ?-???-???-???-???-???- Negative 155 36 Cephalic 0 -???-???-???-???-???-???-?? ?-???-???-???-???-???- SM- no vb lo f good fm [...] and PRN 5. Influenza vaccine administered Z23 [id number] 6. 35 weeks gestation of Z3A.35 electronic [...] CC: Britta Acevedo Start: 06-05-2020 End: 06-05-2020 Dance Director Office Visit Report Comments: See Note; NOTES: [facility] [address] [place] [address] OFFICE VISIT Date of Service: 06/05/20 MR#: [id number] Acct: [id number] Name: PRISCILA NGO Rep #: [id number] : 1985 Provider: Dr. 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 ?-???-???-???-???-???- EGA Weight BP Urine Prot -???-???-???-???-???-???-?? ?-???-???-???-???-???- Glucose FHR FuHt Pres Dilation -???-???-???-???-???-???-?? ?-???-???-???-???-???- Effaced St Visit Note 01/17/20 -???-???-???-???-???-???-?? ?-???-???-???-???-???- 14w 6d 129 lb 6 oz (-10 oz) 120/78 Negative -???-???-???-???-???-???-?? ?-???-???-???-???-???- Negative 151 -???-???-???-???-???-???-?? ?-???-???-???-???-???- -No sharyn Aguilar. Still struggling with N V:filemon Rx. 02/10/20 -???-???-???-???-???-???-?? ?-???-???-???-???-???- 18w 2d 132 lb 2 oz (+2 lb 2 oz) 120/70 Negative -???-???-???-???-???-???-?? ?-???-???-???-???-???- Negative 150 -???-???-???-???-???-???-?? ?-???-???-???-???-???- SM- no vb cr amping doing well overall 03/24/20 -???-???-???-???-???-???-?? ?-???-???-???-???-???- 24w 3d 140 lb 8 oz (+10 lb 8 oz) 118/78 Negative -???-???-???-???-???-???-?? ?-???-???-???-???-???- Negative 145 24 -???-???-???-???-???-???-?? ?-???-???-???-???-???- SM- no vb lo f good fm scheduled us 04/24/20 -???-???-???-???-???-???-?? ?-???-???-???-???-???- 28w 6d 147 lb 2 oz (+17 lb 2 oz) 126/68 Negative -???-???-???-???-???-???-?? ?-???-???-???-???-???- Negative 145 28 -???-???-???-???-???-???-?? ?-???-???-???-???-???- SM- no vb lo f good fm no regular ctx 05/06/20 -???-???-???-???-???-???-?? ?-???-???-???-???-???- 30w 4d 150 lb 4 oz (+20 lb 4 oz) 138/80 Negative -???-???-???-???-???-???-?? ?-???-???-???-???-???- Negative 140 30 -???-???-???-???-???-???-?? ?-???-???-???-???-???- GP - No lof, VB, dfm, ctx. Denies complaints. GP - No lof, VB, dfm, ctx. Denies complaints. CB classes this weekend. 05/22/20 -???-???-???-???-???-???-?? ?-???-???-???-???-???- 32w 6d 150 lb (+20 lb) 124/66 Negative -???-???-???-???-???-???-?? ?-???-???-???-???-???- Negative 135 32 -???-???-???-???-???-???-?? ?-???-???-???-???-???- SM- no vb lo f good fm no regular ctx discussed labor preferences. 06/05/20 -???-???-???-???-???-???-?? ?-???-???-???-???-???- 34w 6d 154 lb (+24 lb) 120/80 Negative -???-???-???-???-???-???-?? ?-???-???-???-???-???- Negative 130 34 -???-???-???-???-???-???-?? ?-???-???-???-???-???- GP - no LOF, VB, DFM, regular [...] no acute distress, well developed, well groomed [facility] Head: normal to inspection Resp Effort [...] Plan Problems 1. Influenza vaccine administered Z23 [id number] 2. Rh negative status during O26.899; Z67.91 [...] CC: Britta Acevedo Start: 05-22-2020 End: 05-22-2020 Dance Director Office Visit Report Comments: See Note; NOTES: [facility] [address] [place] [address]. [address] [place], [place] [id number] OFFICE VISIT Date of Service: 05/22/20 MR#: [id number] Acct: [id number] Name: PRISCILA NGO Rep #: [phone] : 1985 Provider: Dr. 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 ?-???-???-???-???- EGA Weight BP Urine Prot -???-???-???-???-???-???-?? ?-???-???-???-???-???- Glucose FHR FuHt Pres Dilation -???-???-???-???-???-???-?? ?-???-???- Effaced St Visit Note 01/17/20 -???-???-???-???-???-???-?? ?-???-???-???-???- 14w 6d 129 lb 6 oz (-10 oz) 120/78 Negative -???-???-???-???-???-???-?? ?-???-???-???-???-???- Negative 151 -???-???-???-???-???-???-?? ?-???-???- MH-No Vb, cr amping. Still struggling with N V:josechiquita Rx. 02/10/20 -???-???-???-???-???-???-?? ?-???-???-???-???- 18w 2d 132 lb 2 oz (+2 lb 2 oz) 120/70 Negative -???-???-???-???-???-???-?? ?-???-???-???-???-???- Negative 150 -???-???-???-???-???-???-?? ?-???-???- SM- no vb cr amping doing well overall 03/24/20 -???-???-???-???-???-???-?? ?-???-???-???-???- 24w 3d 140 lb 8 oz (+10 lb 8 oz) 118/78 Negative -???-???-???-???-???-???-?? ?-???-???-???-???-???- Negative 145 24 -???-???-???-???-???-???-?? ?-???-???- SM- no vb lo f good fm scheduled us 04/24/20 -???-???-???-???-???-???-?? ?-???-???-???-???- 28w 6d 147 lb 2 oz (+17 lb 2 oz) 126/68 Negative -???-???-???-???-???-???-?? ?-???-???-???-???-???- Negative 145 28 -???-???-???-???-???-???-?? ?-???-???- SM- no vb lo f good fm no regular ctx 05/06/20 -???-???-???-???-???-???-?? ?-???-???-???-???- 30w 4d 150 lb 4 oz (+20 lb 4 oz) 138/80 Negative -???-???-???-???-???-???-?? ?-???-???-???-???-???- Negative 140 30 -???-???-???-???-???-???-?? ?-???-???- GP - No lof, VB, dfm, ctx. Denies complaints. GP - No lof, VB, dfm, ctx. Denies complaints. CB classes this weekend. 05/22/20 -???-???-???-???-???-???-?? ?-???-???-???-???- 32w 6d 150 lb (+20 lb) 124/66 Negative -???-???-???-???-???-???-?? ?-???-???-???-???-???- Negative 135 32 -???-???-???-???-???-???-?? ?-???-???- SM- no vb lo f good fm [...] weeks and PRN 5. Influenza vaccine administered Z06 [id number] Orders Orders: POC Urinalysis 2 Dip (Clinic) Today Coding Level of Care Code OB Routine Diagnoses Z34.90 Supervision of normal first Z34.00 Asthma J45.909 Rh negative status during O26.899; Z67.91 Influenza vaccine administered Z23 05/22/20 1528 <Electronically signed by Sonya Benoit MD> Date Sonya Benoit MD Cosigner Signature: Date (if applicable) CC: Britta Acevedo Start: 05-06-2020 End: 05-06-2020 Dance Director Office Visit Report Comments: See Note; NOTES: [facility] [address] [place] [address] OFFICE VISIT Date of Service: 05/06/20 MR#: [id number] Acct: [id number] Name: PRISCILA NGO Rep #: [phone] : 1985 Provider: Dr. 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 ?-???-???-???-???- EGA Weight BP Urine Prot -???-???-???-???-???-???-?? ?-???-???-???-???-???- Glucose FHR FuHt Pres Dilation -???-???-???-???-???-???-?? ?-???-???- Effaced St Visit Note 01/17/20 -???-???-???-???-???-???-?? ?-???-???-???-???- 14w 6d 129 lb 6 oz (-10 oz) 120/78 Negative -???-???-???-???-???-???-?? ?-???-???-???-???-???- Negative 151 -???-???-???-???-???-???-?? ?-???-???- MH-No Vb, cr amping. Still struggling with N V:zofran Rx. 02/10/20 -???-???-???-???-???-???-?? ?-???-???-???-???- 18w 2d 132 lb 2 oz (+2 lb 2 oz) 120/70 Negative -???-???-???-???-???-???-?? ?-???-???-???-???-???- Negative 150 -???-???-???-???-???-???-?? ?-???-???- SM- no vb cr amping doing well overall 03/24/20 -???-???-???-???-???-???-?? ?-???-???-???-???- 24w 3d 140 lb 8 oz (+10 lb 8 oz) 118/78 Negative -???-???-???-???-???-???-?? ?-???-???-???-???-???- Negative 145 24 -???-???-???-???-???-???-?? ?-???-???- SM- no vb lo f good fm scheduled us 04/24/20 -???-???-???-???-???-???-?? ?-???-???-???-???- 28w 6d 147 lb 2 oz (+17 lb 2 oz) 126/68 Negative -???-???-???-???-???-???-?? ?-???-???-???-???-???- Negative 145 28 -???-???-???-???-???-???-?? ?-???-???- SM- no vb lo f good fm no regular ctx 05/06/20 -???-???-???-???-???-???-?? ?-???-???-???-???- 30w 4d 150 lb 4 oz (+20 lb 4 oz) 138/80 Negative -???-???-???-???-???-???-?? ?-???-???-???-???-???- Negative 140 30 -???-???-???-???-???-???-?? ?-???-???- GP - No lof, VB, dfm, ctx. [...] no acute distress, well developed, well groomed HENTN Head: normal to inspection Resp Effort Inspection: [...] Murphy on 05/06/20 15:59 Immunizations Flucelvax Quad [id number] (PF) Performing Provider: Aparna Allen MD Administered by: Brittany Murphy on 05/06/20 16:00 Dose Route Admin Location Lot Number Expiration Date NDC Manufactu rer 60 mcg IM Left Deltoid [id number] 01/23/21 [id number] SEQIRUS VIS Given Date VIS Provided VIS [...] CC: Britta Acevedo Start: 04-24-2020 End: 04-24-2020 Dance Director Office Visit Report Comments: See Note; NOTES: [facility] [address] [place] [address]. [address] [place] [address] OFFICE VISIT Date of Service: 04/24/20 MR#: [id number] Acct: [id number] Name: NGOPRISCILA MALAGON ALBERT Rep #: [phone] : 1985 Provider: Dr. Sonya valentino MD Age/Sex: 34/F Location: [facility] [place] Status: Signed Intake Vital Signs 04/24/20 BMI 23.3 04/24/20 Height 5 ft 5 in 04/24/20 Weight: 147 lb 2 oz 04/24/20 BMI 24.5 04/24/20 BP 126/68 H Intake Visit Reasons: 28 WK OB/GLUCOSE Leach Cell Operator Required: No Accompanied by: self Allergies amoxicillin [...] MA at [employer] [facility] Pregancy History 1 Elective abortions Hx Para Spontaneous abortions Hx # Term Pregnancies Ectopic pregnancies Hx # Pregnancies Multiple births # of living children HPI 28 WK OB/GLUCOSE: Details: PRISCILA NGO is a 34 year old who presents [...] list details Initial Weight: 130 lb Date -???-???-???-???-???-???-?? ?-???-???-???-???- EGA Weight BP Urine Prot -???-???-???-???-???-???-?? ?-???-???-???-???-???- Glucose FHR FuHt Pres Dilation -???-???-???-???-???-???-?? ?-???-???- Effaced St Visit Note 01/17/20 -???-???-???-???-???-???-?? ?-???-???-???-???- 14w 6d 129 lb 6 oz (-10 oz) 120/78 Negative -???-???-???-???-???-???-?? ?-???-???-???-???-???- Negative 151 -???-???-???-???-???-???-?? ?-???-???- MH-No Vb, cr amping. Still struggling with N V:filemon Rx. 02/10/20 -???-???-???-???-???-???-?? ?-???-???-???-???- 18w 2d 132 lb 2 oz (+2 lb 2 oz) 120/70 Negative -???-???-???-???-???-???-?? ?-???-???-???-???-???- Negative 150 -???-???-???-???-???-???-?? ?-???-???- SM- no vb cr amping doing well overall 03/24/20 -???-???-???-???-???-???-?? ?-???-???-???-???- 24w 3d 140 lb 8 oz (+10 lb 8 oz) 118/78 Negative -???-???-???-???-???-???-?? ?-???-???-???-???-???- Negative 145 24 -???-???-???-???-???-???-?? ?-???-???- SM- no vb lo f good fm scheduled us 04/24/20 -???-???-???-???-???-???-?? ?-???-???-???-???- 28w 6d 147 lb 2 oz (+17 lb 2 oz) 126/68 Negative -???-???-???-???-???-???-?? ?-???-???-???-???-???- Negative 145 28 -???-???-???-???-???-???-?? ?-???-???- SM- no vb lo f good fm [...] Expiration Date NDC Manufactu rer 1,500 unit IM [facility] [id number] 10/19/21 [id number] [employer] Mom[employer] Results POC Urinalysis 2 Dip (Clinic) Office Urine Glucose Negative Last Edit by Eleni English on 04/24/20 13:53 Office Urine Protein Negative Last Edit by Eleni English on 04/24/20 13:53 Immunizations Boostrix Tdap Performing Provider: Sonya Benoit MD Administered by: Eleni English on 04/24/20 13:53 Dose Route Admin Location Lot Number Expiration Date NDC Manufactu rer 0.5 mL IM Left Deltoid [id number] 01/31/22 [id number] SANOFI-PASTEUR VIS Given Date VIS Provided VIS [...] CC: Britta Acevedo Start: 03-24-2020 End: 03-24-2020 Dance Director Office Visit Report Comments: See Note; NOTES: [facility] [address] [place] [address] [address] [place] [address] OFFICE VISIT Date of Service: 03/24/20 MR#: [id number] Acct: [id number] Name: PRISCILA NGO Rep #: [phone] : 1985 Provider: Dr. Sonya valentino MD Age/Sex: 34/F Location: [facility] [place] Status: Signed Intake Vital Signs 03/24/20 Height 5 ft 5 in 03/24/20 Weight: 140 lb 8 oz 03/24/20 BMI 23.3 03/24/20 BP 118/78 03/24/20 BMI 21.8 Intake Visit Reasons: 22 WK OB Leach Cell Operator Required: No Is patient in pain?: No [...] MA at [employer] [facility] Pregancy History 1 Elective abortions Hx Para Spontaneous abortions Hx # Term Pregnancies Ectopic pregnancies Hx # Pregnancies Multiple births # of living children HPI 22 WK OB: Details: PRISCILA NGO is a 34 year old who presents [...] list details Initial Weight: 130 lb Date -???-???-???-???-???-???-?? ?-???-???-???-???- EGA Weight BP Urine Prot -???-???-???-???-???-???-?? ?-???-???-???-???-???- Glucose FHR FuHt Pres Dilation -???-???-???-???-???-???-?? ?-???-???- Effaced St Visit Note 01/17/20 -???-???-???-???-???-???-?? ?-???-???-???-???- 14w 6d 129 lb 6 oz (-10 oz) 120/78 Negative -???-???-???-???-???-???-?? ?-???-???-???-???-???- Negative 151 -???-???-???-???-???-???-?? ?-???-???- -No sharyn Aguilar. Still struggling with N V:filemon Rx. 02/10/20 -???-???-???-???-???-???-?? ?-???-???-???-???- 18w 2d 132 lb 2 oz (+2 lb 2 oz) 120/70 Negative -???-???-???-???-???-???-?? ?-???-???-???-???-???- Negative 150 -???-???-???-???-???-???-?? ?-???-???- SM- no vb cr amping doing well overall 03/24/20 -???-???-???-???-???-???-?? ?-???-???-???-???- 24w 3d 140 lb 8 oz (+10 lb 8 oz) 118/78 Negative -???-???-???-???-???-???-?? ?-???-???-???-???-???- Negative 145 24 -???-???-???-???-???-???-?? ?-???-???- SM- no vb mary fofana scheduled us ACOG First Trimester First [...] CC: Britta Acevedo Start: 02-10-2020 End: 02-12-2020 Dance Director Office Visit Report Comments: See Note; NOTES: [facility] [address] [place] [address] OFFICE VISIT Date of Service: 02/10/20 MR#: [id number] Acct: [id number] Name: PRISCILA NGO Rep #: [phone] : 1985 Provider: Dr. 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 ?-???-???-???-???- EGA Weight BP Urine Prot -???-???-???-???-???-???-?? ?-???-???-???-???-???- Glucose FHR FuHt Pres Dilation -???-???-???-???-???-???-?? ?-???-???- Effaced St Visit Note 01/17/20 -???-???-???-???-???-???-?? ?-???-???-???-???- 14w 6d 129 lb 6 oz (-10 oz) 120/78 Negative -???-???-???-???-???-???-?? ?-???-???-???-???-???- Negative 151 -???-???-???-???-???-???-?? ?-???-???- MH-No Vb, cr amping. Still struggling with N V:criseldaan Rx. 02/10/20 -???-???-???-???-???-???-?? ?-???-???-???-???- 18w 2d 132 lb 2 oz (+2 lb 2 oz) 120/70 Negative -???-???-???-???-???-???-?? ?-???-???-???-???-???- Negative 150 -???-???-???-???-???-???-?? 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 [address] [place] [address] OFFICE VISIT Date of Service: 01/17/20 MR#: [id number] Acct: [id number] Name: PRISCILA NGO Rep #: [phone] : 1985 Provider: LUCITA pereira Age/Sex: 34/F Location: [facility] [place] Status: Signed Intake Vital Signs 01/17/20 BMI 21.8 01/17/20 Height 5 ft 5 in 01/17/20 Weight: 129 lb 6 oz 01/17/20 BMI 21.5 01/17/20 BP 120/78 Intake Visit Reasons: 14 WK OB Leach Cell Operator Required: No Is patient in pain?: No [...] Social History (Updated 01/17/20 @ 14:38 by Ana Cristina Roe NP-Meena) Smoking Status: Never smoker alcohol intake: current details: pre- substance use type: does not use caffeine: Yes what type of physical activity do you participate in: walking frequency: 3-4 times per week seatbelt use: always do you feel safe at home: Yes additional social history: Stephen Su 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 ?-???-???-???-???- EGA Weight BP Urine Prot -???-???-???-???-???-???-?? ?-???-???-???-???-???- Glucose FHR FuHt Pres Dilation -???-???-???-???-???-???-?? ?-???-???- Effaced St Visit Note 01/17/20 -???-???-???-???-???-???-?? ?-???-???-???-???- 14w 6d 129 lb 6 oz (-10 oz) 120/78 Negative -???-???-???-???-???-???-?? ?-???-???-???-???-???- Negative 151 -???-???-???-???-???-???-?? ?-???-???- -No sharyn Aguilar. Still struggling with N V:filemon Rx. ACOG First Trimester First Trimester: Desire [...] Office Urine Glucose Negative Last Edit by Sathya English on 01/17/20 14:19 Office Urine Protein Negative Last Edit by Sathya English on 01/17/20 14:19 Assessment Plan Problems [...] Ana Cristina MAGDALENO> Date Ana Cristina Roe ADMINISTRATIVE OFFICE SPECIALIST-C Cosigner Signature: Date (if applicable) CC: Britta Acevedo Start: 12-16-2019 End: 12-16-2019 MR/[facility] Comments: See Note; NOTES: [facility] 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 Supervision of normal first Z34.00 ALVAREZ 07/17/2020 Spouse: Trang 3. Z34.90 discussed [...] Sonya Benoit MD> Date Sonya Benoit MD [facility] Signature: Date (if applicable) CC: Britta Acevedo Start: 07-29-2019 End: 08-01-2019 Dance Director Office Visit Report Comments: See Note; NOTES: [facility] [address] [place] [address]. 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 [facility] Pregancy History 0 Elective abortions Hx Para Spontaneous abortions HPI ANNUAL EXAM: Details: PRISCILA NGO is a 34 year old who presents [...] no acute distress, well developed, well groomed [facility] Head: normal to inspection, normocephalic Ears: [...] 12-21-2015 Echocardiogram Complete Comments: See Note; NOTES: [facility] [address] [place] [id number] Echo Complete 12/21/15 1315 MR#: [id number] Acct: [id number] Name: PRISCILA PRICE Rep #: [id number] : 1985 30 From: Stiven Huerta MD Attending Dr: Brenda Bradley DO Status: [facility] Ordering Dr: Brenda Bradley DO Date: 12/21/15 Location: [facility] Sex: F C Admitted: Reason For Study: [...] Brenda Bradley Performed By: Marga Casarez RDCS 12/21/15 1702 Date Stiven Huerta MD CC: Brenda Bradley DO Date Dictated: 12/21/15 1315 Date Transcribed: 12/21/15 170 Assembler Molded Frames: Signed Brenda Bradley Work Phone: Start: 12-04-2015 End: 12-04-2015 Ecg routine ecg w/least 12 lds w/i&r [MEASUREMENTS ANALYSIS] Date of Test: 12/04/2015 12:20:06; Heart Rate: 54; OK Interval: 142; QRS: 84; QT Interval: 410; Corrected QT Interval (QTc): 400; P Wave [place]: 44; QRS Wave [place]: 57; T Wave [place]: 58; Blood Pressure: 100/78 [ECG DIAGNOSTIC STATEMENTS] Date of Test: 12/04/2015 12:20:06; Summary: Sinus Bradycardia WITHIN NORMAL LIMITS Brenda Bradley Work Phone: Group B Streptococcu s Culture Dr. Britta Acevedo Work Phone: H/O: section History of C-sectio n Dr. Britta Acevedo Work Phone: Urine culture Dr. Britta saldivar Work Phone: Plan of Treatment Date Care Activity Detail Author Start: 04-22-2025 ambulatory Ambulatory Facility:[facility] Start: 04-16-2022 Patient discharge [facility] Work Phone: Start: 04-15-2022 Application of abdom inal corset [facility] Work Phone: Start: 04-14-2022 End: 04-15-2022 [facility] Work Phone: Start: 04-14-2022 Notification of physician [facility] Work Phone: Start: 04-14-2022 Post-anesthesia assessment [facility] Work Phone: Start: 04-14-2022 Administration of medication [facility] Work Phone: Start: 04-14-2022 Ambulation therapy management [facility] Work Phone: Start: 04-14-2022 Application of device [facility] Work Phone: Start: 04-14-2022 Application of intermittent pneumatic compression device [facility] Work Phone: Start: 04-14-2022 Assessment of risk o f venous thromboembolism [facility] Work Phone: Start: 04-14-2022 Catheterization of vein [facility] Work Phone: Start: 04-14-2022 Deep breathing and coughing exercises [facility] Work Phone: Start: 04-14-2022 Exercises [facility] Work Phone: Start: 04-14-2022 Measuring intake and output [facility] Work Phone: Start: 04-14-2022 Notification of physician [facility] Work Phone: Start: 04-14-2022 Procedure discontinued [facility] Work Phone: Start: 04-14-2022 Provision of activit y privileges [facility] Work Phone: Start: 04-14-2022 Vital signs measurements [facility] Work Phone: Start: 04-14-2022 Wound care [facility] Work Phone: Start: 04-14-2022 Application of abdom inal corset [facility] Work Phone: Start: 04-14-2022 section Repeat C-Sect ion (Not Applicable) [facility] Work Phone: Start: 04-14-2022 Admission procedure [facility] Work Phone: Start: 06-30-2017 End: 06-30-[address] [facility] Start: 06-30-2017 End: 06-30-2017 Appointment Appointment [facility] Start: 12-13-2016 Procedure Education Eprescribe d [...] ell count each CBC WITH MANUAL DIFF (42691) [facility] Work Phone: Start: 01-16-2015 Assay of thyroid stimulating hormone tsh TSH ([id number]) [facility]; [facility] Work Phone: Start: 01-16-2015 TSH Qn TSH (64815) [facility] Work Phone: Start: 01-16-2015 Comprehensive metabo lic panel Metabolic Panel, Comprehensive (33109) [facility] Work Phone: Start: 01-16-2015 Lipid panel Lipid Panel (91239) [facility] Work Phone: Start: [...] Fibrin dgradj produc ts d-dimer quantitative D-Dimer (83622) [facility] Work Phone: Comment on above: stat call results to scallop shucker at [facility] Start: 03-21-2014 Patient Education Asthma: rajinder rgic [...] tuberculos is intradermal SKIN TEST INTRADERMAL TB (35048) [facility] Work Phone: Start: 09-24-2008 Hepatic function panel HEPATIC FUNCTION PANEL (81768) [facility] Work Phone: Start: 09-24-2008 Lipid panel LIPID PANEL (16527) [facility] Work Phone: Start: 09-08-2008 Assay of thyroid stimulating hormone tsh TSH (39032) [facility]; [facility] Work Phone: Start: 09-08-2008 TSH Qn TSH (17265) [facility] Work Phone: Start: 09-08-2008 Lipid panel LIPID PANEL (22972) [facility] Work Phone: Start: 09-08-2008 Sedimentation rate r bc non-automated SED RATE ERYTHROCYTE (69766) [facility] Work Phone: Start: 09-08-2008 C-reactive protein C-REACTIVE PROTEIN (31314) [facility]; [facility] Work Phone: Start: 09-08-2008 CRP [Mass/Vol] C-REACTIVE PRO TEIN (74495) [facility] Work Phone: Start: 09-08-2008 Rheumatoid factor quantitative RHEUMATOID FACTOR-QUANT (64266) [facility] Work Phone: Start: 09-08-2008 Antinuclear antibodi es josefina JOSEFINA (ANTINUCLEAR ANTIBODY) (58414) [facility]; [facility] Work Phone: Start: 09-08-2008 Nuclear Ab IF (S) [Titer] JOSEFINA (ANTINUCLEAR ANTIBODY) (66692) [facility] Work Phone: Start: 09-08-2008 Comprehensive metabo lic panel METABOLIC PANEL, COMPREHENSIVE (50803) [facility] Work Phone: Start: 09-08-2008 Blood count manual c ell count each CBC WITH MANUAL DIFF (97643) [facility] Work Phone: Start: 07-07-2008 Provider Instruction s for Treatment Antibiotic Usage Education - Female [facility] Work Phone: Start: 06-17-2008 Provider Instruction s for Treatment Antibiotic Usage Education - Female [facility] Work Phone: Start: 09-11-2007 Provider Instruction s for Treatment Antibiotic Usage Education - Female [facility] Work Phone: Patient referral [facility] Work Phone: [facility] Work [...] Immunization Date Immunization Notes Care Provider [facility] 05-29-2023 influenza, injectabl e, quadrivalent, preservative free DO Alisia Foster Work Phone: [facility] 05-26-2022 influenza, injectabl e, quadrivalent, preservative free DO Alisia Foster Work Phone: [facility] 05-26-2022 influenza, seasonal, injectable Dr. Britta Acevedo Work Phone: [facility] 01-26-2022 tetanus toxoid, reduced diphtheria toxoid, and acellular pertussis vaccine, adsorbed Dr. Britta Acevedo Work Phone: [facility] 05-06-2020 Flucelvax Quad (PF) (flu vac qs 2019(4 yr up)CD(PF)) 60 mcg ([address] Britta Acevedo Work Phone: [facility] Work Phone: 05-06-2020 influenza, injectable,quadrivalen t, preservative free, pediatric Dr. Britta Acevedo Work Phone: [facility] 04-24-2020 tetanus toxoid, reduced diphtheria toxoid, and acellular pertussis vaccine, adsorbed Dr. Britta Acevedo Work Phone: [facility] 04-24-2020 diphtheria, tetanus toxoids and acellular pertussis vaccine, unspecified formulation Dr. Britta Acevedo Work Phone: [facility] Work Phone: 01-10-2007 human papilloma viru s vaccine, quadrivalent Britta Acevedo [facility] Work Phone: Comment on above: Lot #: [id number] on date: 06/22Amount given: 0.5 mlRoute: IMSite given: Lt Dltd.Given by: Pooja Blair LPN 10-17-2006 HPV, unspecified formulation Britta Lorenzo [facility] Work Phone: Comment on above: 1st dose given 07/26 Payers Date Payer Category Payer Self-pay [id number] 2023 Private Health Insurance [id number] 2023 Unknown [id number] 2015 Private Health Insurance [facility] [id number] 1985 Unknown [id number] 2.16.840.1.874704.3.579.2.4 79 Unknown Unknown [id number] Unknown [facility] PACKAGE PLAN [id number] Unknown [id number] 2.16.840.1.697168.3.579.2.4 62 Unknown [id number] 2.16.840.1.087050.3.579.2.4 62 Unknown [id number] 2.16.840.1.828551.3.579.2.4 62 Unknown [id number] 2.16.840.1.449271.3.579.2.4 62 Unknown [id number] 2.16.840.1.356794.3.579.2.4 62 Unknown [id number] 2.16.840.1.838888.3.579.2.4 62 Unknown [id number] 2.16.840.1.809949.3.579.2.4 62 Unknown [id number] 2.16.840.1.325374.3.579.2.4 62 Unknown [id number] 2.16.840.1.596548.3.579.2.4 62 Unknown [id number] 2.16.840.1.173767.3.579.2.4 62 Unknown [id number] 2.16.840.1.903957.3.579.2.4 62 Unknown [id number] 2.16.840.1.014914.3.579.2.4 62 Unknown [id number] 2.16.840.1.903054.3.579.2.4 62 Unknown [id number] 2.16.840.1.511824.3.579.2.4 62 Unknown [id number] 2.16.840.1.835130.3.579.2.4 62 Unknown [id number] 2.16.840.1.402716.3.579.2.4 62 Unknown [id number] 2.16.840.1.072538.3.579.2.4 62 Unknown [id number] 2.16.840.1.702911.3.579.2.4 62 Unknown [id number] 2.16.840.1.086211.3.579.2.4 62 Unknown [id number] 2.16.840.1.486855.3.579.2.4 62 Unknown [id number] 2.16.840.1.469274.3.579.2.4 62 Unknown [id number] 2.16.840.1.650066.3.579.2.4 62 Unknown [id number] 2.16.840.1.426882.3.579.2.4 62 Unknown [id number] 2.16.840.1.194627.3.579.2.4 62 Unknown [id number] 2.16.840.1.563359.3.579.2.4 62 Unknown [id number] 2.16.840.1.960341.3.579.2.4 62 Unknown [id number] 2.16.840.1.687263.3.579.2.4 62 Unknown [id number] 2.16.840.1.378760.3.579.2.4 62 Unknown [id number] 2.16.840.1.681341.3.579.2.4 62 Social History Date Type Detail Facility Caffeine Use Caffeine Use [facility] Work Phone: Comment on above: rarely Current Work/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: Current Work/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: [facility]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 Living Situation: Living Situation: [facility]pr [facility] Work Phone: Comment on above: single Tobacco use: Tobacco use: [facility] Work Phone: Start: 10-29-2021 End: 05-29-2023 Tobacco smoking status NHIS Unknown if ever smoked [facility] Start: 1985 Sex Assigned At Female W [facility] Current Work/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: Current Work/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: [facility]; [facility]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 Living Situation: Living Situation: Compr [facility]; [facility] Work Phone: Comment on above: single Tobacco use: Tobacco use: [facility]; [facility] Work Phone: Goals Date Patient Goal Desired Activity /State Mental Status Date Assessment Result Facility 04-14-2022 Cognitive function Voice/Name [facility] Work Phone: Clinical Notes Note Date & Type Note Facility Evaluation note Diagnosis Onset Date Asthma acute History of acute History of supraventricular tachycardia acute acute Rh negative status during acute Supervision of other normal acute Subchorionic hematoma resolv ed Asthma acute History of acute History of supraventricular tachycardia acute acute Rh negative status during acute Supervision of other normal acute Asthma acute History of acute History of supraventricular tachycardia acute acute Rh negative status during acute Supervision of other normal acute [facility] Work Phone: Evaluation note* Diagnosis Onset Date Resolution Status Asthma acute History of acute History of supraventricular tachycardia acute acute Rh negative status during acute Supervision of other normal acute Asthma acute History of acute History of supraventricular tachycardia acute acute Rh negative status during acute Supervision of other normal acute Asthma acute History of acute History of supraventricular tachycardia acute acute Rh negative status during acute Supervision of other normal acute Asthma acute History of acute History of supraventricular tachycardia acute acute Rh negative status during acute Supervision of other normal acute [facility] Work Phone: Evaluation note* Diagnosis Onset Date Resolution Status Asthma acute History of acute History of supraventricular tachycardia acute acute Rh negative status during acute Supervision of other normal acute Asthma acute History of acute History of supraventricular tachycardia acute acute Rh negative status during acute Supervision of other normal acute Asthma acute History of acute History of supraventricular tachycardia acute acute Rh negative status during acute Supervision of other normal acute [facility] Work Phone: evaluation note* Diagnosis Onset Date Resolution Status Asthma acute History of acute History of supraventricular tachycardia acute acute Rh negative status during acute Supervision of other normal acute Asthma acute History of acute History of supraventricular tachycardia acute acute Rh negative status during acute Supervision of other normal acute Asthma acute History of acute History of supraventricular tachycardia acute acute Rh negative status during acute Supervision of other normal acute Asthma acute History of acute History of supraventricular tachycardia acute acute Rh negative status during acute Supervision of other normal acute Asthma acute History of acute History of supraventricular tachycardia acute acute Rh negative status during acute Supervision of other normal acute Asthma acute History of acute History of supraventricular tachycardia acute acute Rh negative status during acute Supervision of other normal acute Asthma acute GBS (group B Streptococcus c arrier), +RV culture, currently acute History of acute History of supraventricular tachycardia acute acute Rh negative status during acute Supervision of other normal acute [facility] Work Phone: Evaluation note* Diagnosis Onset Date Resolution Status Asthma acute Rh negative status during acute History of resolve d History of supraventricular tachycardia resolved resolved Supervision of other normal resolved Asthma acute Rh negative status during acute History of resolve d History of supraventricular tachycardia resolved resolved Supervision of other normal resolved Asthma acute Rh negative status during acute History of resolve d History of supraventricular tachycardia resolved resolved Supervision of other normal resolved Asthma acute Rh negative status during acute History of resolve d History of supraventricular tachycardia resolved resolved Supervision of other normal resolved Asthma acute Rh negative status during acute History of resolve d History of supraventricular tachycardia resolved resolved Supervision of other normal resolved Asthma acute Rh negative status during acute History of resolve d History of supraventricular tachycardia resolved resolved Supervision of other normal resolved Asthma acute Rh negative status during acute GBS (group B Streptococcus c arrier), +RV culture, currently resolved History of resolve d History of supraventricular tachycardia resolved resolved Supervision of other normal resolved Asthma acute Rh negative status during acute GBS (group B Streptococcus c arrier), +RV culture, currently resolved History of resolve d History of supraventricular tachycardia resolved resolved Supervision of other normal resolved Asthma acute delivery delivered acute Rh negative status during acute GBS (group B Streptococcus c arrier), +RV culture, currently resolved History of resolve d History of supraventricular tachycardia resolved resolved Supervision of other normal resolved [facility] Work Phone: Evaluation note* Diagnosis Onset Date Resolution Status Asthma acute History of acute History of supraventricular tachycardia acute acute Rh negative status during acute Supervision of other normal acute Asthma acute History of acute History of supraventricular tachycardia acute acute Rh negative status during acute Supervision of other normal acute Asthma acute History of acute History of supraventricular tachycardia acute acute Rh negative status during acute Supervision of other normal acute Asthma acute History of acute History of supraventricular tachycardia acute acute Rh negative status during acute Supervision of other normal acute Asthma acute History of acute History of supraventricular tachycardia acute acute Rh negative status during acute Supervision of other normal acute Asthma acute History of acute History of supraventricular tachycardia acute acute Rh negative status during acute Supervision of other normal acute Asthma acute GBS (group B Streptococcus c arrier), +RV culture, currently acute History of acute History of supraventricular tachycardia acute acute Rh negative status during acute Supervision of other normal acute Asthma acute GBS (group B Streptococcus c arrier), +RV culture, currently acute History of acute History of supraventricular tachycardia acute acute Rh negative status during acute Supervision of other normal acute [facility] Work Phone: Evaluation note* Diagnosis Onset Date Resolution Status Asthma acute Rh negative status during acute History of resolve d History of supraventricular tachycardia resolved resolved Supervision of other normal resolved Asthma acute Rh negative status during acute History of resolve d History of supraventricular tachycardia resolved resolved Supervision of other normal resolved Asthma acute Rh negative status during acute History of resolve d History of supraventricular tachycardia resolved resolved Supervision of other normal resolved Asthma acute Rh negative status during acute History of resolve d History of supraventricular tachycardia resolved resolved Supervision of other normal resolved Asthma acute Rh negative status during acute History of resolve d History of supraventricular tachycardia resolved resolved Supervision of other normal resolved Asthma acute Rh negative status during acute GBS (group B Streptococcus c arrier), +RV culture, currently resolved History of resolve d History of supraventricular tachycardia resolved resolved Supervision of other normal resolved Asthma acute Rh negative status during acute GBS (group B Streptococcus c arrier), +RV culture, currently resolved History of resolve d History of supraventricular tachycardia resolved resolved Supervision of other normal resolved Asthma acute Rh negative status during acute GBS (group B Streptococcus c arrier), +RV culture, currently resolved History of resolve d History of supraventricular tachycardia resolved resolved Supervision of other normal resolved care and examination noneactive [facility] Work Phone: Evaluation note* Diagnosis Onset Date Resolution Status Asthma acute History of resolve d History of supraventricular tachycardia resolved resolved Supervision of other normal resolved Asthma acute History of resolve d History of supraventricular tachycardia resolved resolved Supervision of other normal resolved Asthma acute History of resolve d History of supraventricular tachycardia resolved resolved Supervision of other normal resolved Asthma acute History of resolve d History of supraventricular tachycardia resolved resolved Supervision of other normal resolved Asthma acute GBS (group B Streptococcus c arrier), +RV culture, currently resolved History of resolve d History of supraventricular tachycardia resolved resolved Supervision of other normal resolved Asthma acute GBS (group B Streptococcus c arrier), +RV culture, currently resolved History of resolve d History of supraventricular tachycardia resolved resolved Supervision of other normal resolved Asthma acute GBS (group B Streptococcus c arrier), +RV culture, currently resolved History of resolve d History of supraventricular tachycardia resolved resolved Supervision of other normal resolved care and examination noneactive Routine follow-up noneactive Encounter for IUD insertion noneactive [facility] Work Phone: Evaluation note* Diagnosis Onset Date Resolution Status Acute otitis media, right ac storm Acute sinusitis, unspecified acute Laryngitis acute Urinary tract infection with hematuria acute [facility] Work Phone: Evaluation note* Diagnosis Onset Date Resolution Status Anxiety acute Breakthrough bleeding with IUD acute Encounter for routine gynecological examination noneactive [facility] Work Phone: Evaluation noteNo assessment information available [facility] Work Phone: Instructions* Name Dates Details How to access health informa tion online Indication:UTI symptoms Start:13-Dec-2016 Instruction Type:Patient Education How to access health informa tion online - Detail Indication:UTI symptoms Start:13-Dec-2016 Instruction Type:Patient Education Patient Instructions Indication:UTI symptoms Start:13-Dec-2016 Instruction Type:Provider Instructions for Treatment How to access health informa tion online Indication:Paroxysmal supraventricular tachycardia seen on monitor worker Start:08-Jan-2016 Instruction Type:Patient Education How to access health informa tion online - Detail Indication:Paroxysmal supraventricular tachycardia seen on monitor worker Start:08-Jan-2016 Instruction Type:Patient Education Patient Instructions Indication:Paroxysmal supraventricular tachycardia seen on monitor worker Start:08-Jan-2016 Instruction Type:Provider Instructions for Treatment How [...] sinusitis Start:12-Jul-2012 Instruction Type:Provider Instructions for Treatment [facility]; [facility] Work Phone: Family History No Family History Records FoundUnknown Family Member Name Dates Details Brother 1 Comments:asthma Status:Active Father Comments:In good health Status:Active Mother Comments:Hyperlipidemia, Kuldeep ign HTN Status:Active Sister 1 Comments:Allergies & anxiety Status:Active Relationship Condition Age at Onset Recorded Date/T carlos father psoriatic arthritis. 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 Start:08-Jan-2016 Instruction Type:Patient Education Patient Instructions Indication:Paroxysmal supraventricular tachycardia seen on monitor 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 Start:08-Jan-2016 Instruction Type:Provider Instructions for Treatment How [...] sinusitis Start:12-Jul-2012 Instruction Type:Provider Instructions for Treatment Chief Complaint and Reason for Visit Chief Complaint Amb Documentation Rhogam VIABILITY NOB LMP 07/14 INT LABS 11WK OB 15 WK OB Reason for Visit Asthma History of History of supraventricular tachycardia Rh negative status during Supervision of other normal Subchorionic hematoma Asthma History of History of supraventricular tachycardia Rh negative status during Supervision of other normal Asthma History of History of supraventricular tachycardia Rh negative status during Supervision of other normal Chief Complaint 11WK OB 15 WK OB 19 WK OB 23 WK OB E ORDER 27 WK OB/GLUCOSE E-ORDER Reason for Visit Asthma History of History of supraventricular tachycardia Rh negative status during Supervision of other normal Asthma History of History of supraventricular tachycardia Rh negative status during Supervision of other normal Asthma History of History of supraventricular tachycardia Rh negative status during Supervision of other normal Asthma History of History of supraventricular tachycardia Rh negative status during Supervision of other normal Chief Complaint 15 WK OB 19 WK OB 23 WK OB E ORDER 27 WK OB/GLUCOSE E-ORDER Reason for Visit Asthma History of History of supraventricular tachycardia Rh negative status during Supervision of other normal Asthma History of History of supraventricular tachycardia Rh negative status during Supervision of other normal Asthma History of History of supraventricular tachycardia Rh negative status during Supervision of other normal Chief Complaint 23 WK OB E ORDER 27 WK OB/GLUCOSE E-ORDER 30WK OB 32WK OB 34WK OB 36WK OB GROWTH 37WK OB Reason for Visit Asthma History of History of supraventricular tachycardia Rh negative status during Supervision of other normal Asthma History of History of supraventricular tachycardia Rh negative status during Supervision of other normal Asthma History of History of supraventricular tachycardia Rh negative status during Supervision of other normal Asthma History of History of supraventricular tachycardia Rh negative status during Supervision of other normal Asthma History of History of supraventricular tachycardia Rh negative status during Supervision of other normal Asthma History of History of supraventricular tachycardia Rh negative status during Supervision of other normal Asthma GBS (group B Streptococcus carrier), +RV culture, currently History of History of supraventricular tachycardia Rh negative status during Supervision of other normal Chief Complaint 23 WK OB E ORDER 27 WK OB/GLUCOSE E-ORDER 30WK OB 32WK OB 34WK OB 36WK OB GROWTH 37WK OB 38WK OB REPEAT C SECTION REPEAT C SECTION REPEAT C SECTION REPEAT C SECTION Reason for Visit Asthma Rh negative status during History of History of supraventricular tachycardia Supervision of other normal Asthma Rh negative status during History of History of supraventricular tachycardia Supervision of other normal Asthma Rh negative status during History of History of supraventricular tachycardia Supervision of other normal Asthma Rh negative status during History of History of supraventricular tachycardia Supervision of other normal Asthma Rh negative status during History of History of supraventricular tachycardia Supervision of other normal Asthma Rh negative status during History of History of supraventricular tachycardia Supervision of other normal Asthma Rh negative status during GBS (group B Streptococcus carrier), +RV culture, currently History of History of supraventricular tachycardia Supervision of other normal Asthma Rh negative status during GBS (group B Streptococcus carrier), +RV culture, currently History of History of supraventricular tachycardia Supervision of other normal Asthma delivery delivered Rh negative status during GBS (group B Streptococcus carrier), +RV culture, currently History of History of supraventricular tachycardia Supervision of other normal Chief Complaint 23 WK OB E ORDER 27 WK OB/GLUCOSE E-ORDER 30WK OB 32WK OB 34WK OB 36WK OB GROWTH 37WK OB 38WK OB Reason for Visit Asthma History of History of supraventricular tachycardia Rh negative status during Supervision of other normal Asthma History of History of supraventricular tachycardia Rh negative status during Supervision of other normal Asthma History of History of supraventricular tachycardia Rh negative status during Supervision of other normal Asthma History of History of supraventricular tachycardia Rh negative status during Supervision of other normal Asthma History of History of supraventricular tachycardia Rh negative status during Supervision of other normal Asthma History of History of supraventricular tachycardia Rh negative status during Supervision of other normal Asthma GBS (group B Streptococcus carrier), +RV culture, currently History of History of supraventricular tachycardia Rh negative status during Supervision of other normal Asthma GBS (group B Streptococcus carrier), +RV culture, currently History of History of supraventricular tachycardia Rh negative status during Supervision of other normal Chief Complaint E ORDER 27 WK OB/GLUCOSE E-ORDER 30WK OB 32WK OB 34WK OB 36WK OB GROWTH 37WK OB 38WK OB REPEAT C SECTION REPEAT C SECTION REPEAT C SECTION REPEAT C SECTION 2WK PP Reason for Visit Asthma Rh negative status during History of History of supraventricular tachycardia Supervision of other normal Asthma Rh negative status during History of History of supraventricular tachycardia Supervision of other normal Asthma Rh negative status during History of History of supraventricular tachycardia Supervision of other normal Asthma Rh negative status during History of History of supraventricular tachycardia Supervision of other normal Asthma Rh negative status during History of History of supraventricular tachycardia Supervision of other normal Asthma Rh negative status during GBS (group B Streptococcus carrier), +RV culture, currently History of History of supraventricular tachycardia Supervision of other normal Asthma Rh negative status during GBS (group B Streptococcus carrier), +RV culture, currently History of History of supraventricular tachycardia Supervision of other normal Asthma Rh negative status during GBS (group B Streptococcus carrier), +RV culture, currently History of History of supraventricular tachycardia Supervision of other normal care and examination Chief Complaint 30WK OB 32WK OB 34WK OB 36WK OB GROWTH 37WK OB 38WK OB REPEAT C SECTION REPEAT C SECTION REPEAT C SECTION REPEAT C SECTION 2WK PP 6WK PP, IUD insertion Reason for Visit Asthma History of History of supraventricular tachycardia Supervision of other normal Asthma History of History of supraventricular tachycardia Supervision of other normal Asthma History of History of supraventricular tachycardia Supervision of other normal Asthma History of History of supraventricular tachycardia Supervision of other normal Asthma GBS (group B Streptococcus carrier), +RV culture, currently History of History of supraventricular tachycardia Supervision of other normal Asthma GBS (group B Streptococcus carrier), +RV culture, currently History of History of supraventricular tachycardia Supervision of other normal Asthma GBS (group B Streptococcus carrier), +RV culture, currently History of History of supraventricular tachycardia Supervision of other normal care and examination Routine follow-up Encounter for IUD insertion Chief Complaint CONCERN FOR SINUS IN FECTION Urinary tract infection Dysuria Reason for Visit Acute otitis media, right Acute sinusitis, unspecified Laryngitis Urinary tract infection with hematuria 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) Excessive and frequent menstruation with irregular Reason for Visit Anxiety Breakthrough bleeding with IUD Encounter for routine gynecological examination Chief Complaint Neck pain, with radi culopathy Advance Directives No Advanced Directives Records Found Advance Directive Response Recorded Date/ Time Living Will No July 15 12:55pm Power of Museum Host/Hostess No July 15, 2020 12:55pm Advance Directive Response Recorded Date/ Time Living Will No April 14 10:44am Power of Museum Host/Hostess No April 14, 2022 10:44am Advance Directive Response Recorded Date/ Time Living Will No April 14 9:44am Power of Museum Host/Hostess No April 14, 2022 9:44am Summary Purpose Additional Source Comments Goals (unrecognized section and content) Goals may be documented in a n alternate sectionGoals may be documented in an alternate sectionGoals may be documented in an alternate sectionGoals may be documented in an alternate sectionGoals may be documented in an alternate sectionGoals may be documented in an alternate sectionGoals may be documented in an alternate sectionGoals may be documented in an alternate section Care Teams (unrecognized sec tion and content) Team Status: Active Member Role Status Dates Dr. Britta Acevedo , Family Provider Active Dr. Britta Acevedo DO Primary Care Provider Active Team Status: Inactive Member Role Status Dates Dr. Britta Acevedo DO Primary Care Provider, Referr ing Provider Active Porfirio STEINER PA Attending Provider Active Team Status: Inactive Member Role Status Dates Dr. Britta Acevedo , Primary Care Provider Active Porfirio STEINER PA Attending Provider, Referring Pr ovider Active Team Status: Active Member Role Status Dates Dr. Britta Acevedo DO Family Provider Active Alisia Foster DO Primary Care Provider Active Team Status: Inactive Member Role Status Dates Dr. Sonya Benoit MD Attending Provider Active Alisia Foster DO Primary Care Provider, Referring Provider Active Team Status: Inactive Member Role Status Dates Alisia Foster DO Primary Care Provider, Attending Provider Active Team Status: Inactive Member Role Status Dates Alisia Foster DO Primary Care Provider Active Dr. Sonya Benoit MD Attending Provider, Referr ing Provider Active Team Status: Inactive Member Role Status Dates Marquis Salamanca MD Attending Provider, Referring Provide r Active Alisia Foster DO Primary Care Provider Active INFORMATION SOURCE (unrecogn ized section and content) DATE CREATED AUTHOR 12/06/2024 [facility] [place] DATE CREATED AUTHOR AUTHOR'S PAUL GROSS 04/19/2025 [facility] FOR RECORDS PERTAINING TO PATIENTS WHO ARE [...] BE BASED ON THE PRIMARY CLINICAL RECORDS. [facility] [employer], [facility]. provides no warranty or guarantee of the accuracy or completeness of information in this document.
--- OUTSIDE RECORDS SUMMARY | 2025-04-22 05:38 | XMS RPT_ITS | CCD ---
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 Britta Acevedo Primary Care Provider [phone] Jyothi SET UP PERSON, RASTA De La Paz Attending Provider [phone] Sonya Benoit Attending Provider [phone] Jyothi SET UP PERSON, SET UP PERSON-C Ana Cristina Attending Provider [phone] Dr. Sonya Benoit Admit Provider [phone] Dr. Sonya Benoit Other Provider Dr. Britta Acevedo Primary Care Provider [phone] Dr. Britta Acevedo Referring Provider Dr. Kate Small Attending Provider [phone] Britta Acevedo DO Unavailable Fast DO, Brenda A Unavailable Slarb LINE DANCER, Louisa Unavailable Unavailable Kate Fischer Unavailable Unavailable Maximino [...] Unavailable Silvia, Chalon Primary Care Unavailable Jyothi SET UP PERSON, Ana Cristina Attending Unavailable Silvia, Chalon Referring [...] Unavailable Silvia, Chalon Primary Care Unavailable Jyothi SET UP PERSON, Ana Cristina Attending Unavailable Jyothi SET UP PERSON, Ana Cristina Attending Unavailable KristinAlisia yung Referring [...] [Amoxil *PENICILLINS*] Drug Allergy 7 Nausea, Vomiting [facility] Comment on above: Nausea & diarrhea (16 sources) erythromycin Drug Allergy 7 Nausea, Vomiting [facility] (11 sources) Azithromycin Drug Allergy 2 Vomiting [facility] (1 source) Amoxicillin Drug Allergy 5 [facility] Repository (1 source) Azithromycin Drug Allergy 5 [facility] Repository (1 source) Erythromycin Drug Allergy 5 [facility] Repository Medications Current Medications Medication Drug Class(es) Dates Sig (Normalized) Sig (Original) [id number] 200 actuat albuterol 0.09 mg/actuat metered dose [...] A DAY December 24, 2021 12:00am Pnv 084-Fmxml-Wqdba-3-Fish Oil (11 sources) Start: 07-15-2020 Pnv 255-Ydymb-Wxebc-3-Fish Oil Active 2 EACH PO DAILY July 15, 2020 10:31am Start: 07-15-2020 End: 05-29-2023 Pnv 853-Jhjvy-Ehdsl-3-Fish O il Discontinued 2 EACH PO DAILY July 15, 2020 1:00am May 29, 2023 2:55pm Start: 07-15-2020 End: 05-29-2023 Pnv 265-Psdoz-Wxzxy-3-Fish O il Discontinued 2 EACH PO DAILY July 15, 2020 12:00am May 29, 2023 1:55pm Start: 07-15-2020 Pnv 103-Folic- Rtjtv-4-Nqdy Oil Active 2 EACH PO DAILY July [...] 20 {Tablet} Refills: 0 Ordered: 18-Feb-2011 Maximino Kim [...] Start: 06-30-2017 BIOTIN 1000 MCG TABS BIOTIN [id number] Sonya Benoit MD End: 08-12-2015 take 1 [...] : 24-Oct-2011 Inactive 21 day ethinyl estradiol 0.797575 mg/hr / etonogestrel 0.005 mg/hr vaginal system [...] 10-Aug-2010 End : 18-Feb-2011 Inactive Fluad Quad [id number](65yr up)(PF) 60 mcg (15 mcg x 4)/0.5mL [...] : 12-Aug-2015 End : 22-Aug-2015 Inactive levonorgestrel 0.418872 mg/hr intrauterine system (20 sources) Progestin, Progestin-containing [...] MIRENA (52 MG) 20 MCG/24HR IUD LEVONORGESTREL [id number] Sonya Benoit MD MIRENA, 20MCG/24 HR (Intrauterine [...] 2 {Inhaler} Refills: 0 Ordered: 04-Dec-2015 Kate Ficsher Start : 12-Aug-2015 End : 04-Dec-2015 Discontinued [...] One tablet by mouth daily MULTIPLE VITAMINS-MINERALS [id number] Sonya Benoit MD Multivitamin preparation (3 sources) [...] on above: This order discontin ued per [facility]. silver sulfADIAZINE 10 mg/ml topical cream (3 [...] TABS One tablet by mouth daily SPIRONOLACTONE [id number] Sonya Benoit MD spirulina 500 mg oral [...] (4 sources) Paroxysmal supraventricular tachycardia seen on lunchroom monitor Unclassified (6 sources) Hyperglyceridemia Unclassified (2 sources) [...] Test Name Value Interpretation Reference Range Facility Brake Liner Office Visit Reporton 04-17-2025 Brake Liner Office Visit Report [facility] [address], [address] [place] [id number] OFFICE VISIT Date of Service: 04/17/25 MR#: [id number] Acct: [id number] Name: PRISCILA NGO Rep #: [id number] : 1985 Provider: Dr. 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 Normal [facility] Brake Liner Office Visit Reporton 04-10-2025 Brake Liner Office Visit Report [facility] [address] [place] [address], [address] [place] [address] OFFICE VISIT Date of Service: 04/10/25 MR#: [id number] Acct: [id number] Name: PRISCILA NGO Rep #: [id number] : 1985 Provider: Dr. Sonya valentino MD Age/Sex: 39/F Location[place] [facility] [place] Status: Signed Intake Vital Signs 11/20/24 14:23 04/04/25 09:45 04/10/25 08:51 Height 5 ft 5 in 5 ft 5 in 5 ft 5 in Weight: 168 lb 7 oz BMI 28.0 BP 125/80 H Intake Visit Reasons: 37wk4d ob *SM csection Ehs Specialist Required: No Is patient in pain?: No [...] occupational status: employed current occupation: [employer] current occupational exposures/hazards: No pets and animals: [...] 5-6 times per week duration: 45-60 minutes/day tish/orthodox: Roman Catholic seatbelt use: always do you feel safe at home: Yes 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 Normal [facility] Rule out Beta Strep (Grp. B) on 04-08-2025 MELE Streptococcus agalactiae (B) Amount Growth Growth Streptococcus agalactiae (B): REACTION Ampicillin Islt PLACIDO <=0.25 cefTRIAXone Islt PLACIDO <=0.12 S Clindamycin Islt PLACIDO <=0.25 S Clindamycin.induced Susc Islt NEG Linezolid Islt PLACIDO <=2 S Vancomycin Islt PLACIDO 0.5 S Normal [facility] Comment on above: Performed By: #### M 100.3400 #### [facility] Laboratory [address] [place], [address] Brake Liner Office Visit Reporton 04-04-2025 Brake Liner Office Visit Report [facility] [address], [address] [place] [address] OFFICE VISIT Date of Service: 04/04/25 MR#: [id number] Acct: [id number] Name: PRISCILA NGO Rep #: [id number] : 1985 Provider: Dr. 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 Normal [facility] Brake Liner Office Visit Reporton 03-27-2025 Brake Liner Office Visit Report [facility] [address] [place] [address], [address] [place] [address] OFFICE VISIT Date of Service: 03/27/25 MR#: [id number] Acct: [id number] Name: PRISCILA NGO Rep #: [id number] : 1985 Provider: Dr. 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 Normal [facility] Brake Liner Office Visit Reporton 03-13-2025 Brake Liner Office Visit Report [facility] [address], [address] [place] [address] OFFICE VISIT Date of Service: 03/13/25 MR#: [id number] Acct: [id number] Name: PRISCILA NGO Rep #: [id number] : 1985 Provider: Dr. 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 Date Name GA/Weeks Outcome Route Bth Weight Gen [facility] 07/16/20 Meron 40 live - full term 7lbs 13oz Female epidural W CH Tiffany Menard 04/14/22 Maira 38 live - full term 8lbs 5oz Female spinal [facility] Sonya Sellerschandni Menard Delivery Date: 07/16/20 [...] (more content not included)... Normal [facility] Brake Liner Office Visit Reporton 02-26-2025 Brake Liner Office Visit Report [facility] [address] [place] [address], [address] [place] [address] OFFICE VISIT Date of Service: 02/26/25 MR#: [id number] Acct: [id number] Name: PRISCILA NGO Rep #: [id number] : 1985 Provider: Dr. 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 Normal [facility] Comprehensive Metabolic Prof nona 02-12-2025 Albumin [Mass/Vol] 3.6 g/dL Normal 3.5-5.0 [facility] Comment on above: Order Comment: Order Date: 02/11/25Order Info: 0786-1 - CMP Performed By: #### L 500.4050 ####[facility] [address] [place], [address] Albumin/Globulin [Mass ratio] 1.4 {ratio} Normal 0.9-2.4 [facility] Comment on above: Order Comment: Order Date: 02/11/25Order Info: 0786-1 - CMP Performed By: #### L 500.4050 ####[facility] [address] [place], [address] ALK PHOS 113 U/L High 35-104 [facility] Comment on above: Order Comment: Order Date: 02/11/25Order Info: 0786-1 - CMP Performed By: #### L 500.4050 ####[facility] [address] [place], [address] ALT [Catalytic activity/Vol] 13 U/L Normal <=34 [facility] Comment on above: Order Comment: Order Date: 02/11/25Order Info: 0786-1 - CMP Performed By: #### L 500.4050 ####[facility] [address] [place], [address] AST [Catalytic activity/Vol] 19 U/L Normal <=31 [facility] Comment on above: Order Comment: Order Date: 02/11/25Order Info: 0786-1 - CMP Performed By: #### L 500.4050 ####[facility] [address] [place], [address] Bilirubin [Mass/Vol] 0.27 mg/dL Normal 0.00-1.30 [facility] Comment on above: Order Comment: Order Date: 02/11/25Order Info: 0786-1 - CMP Performed By: #### L 500.4050 ####[facility] [address] [place], [address] BUN/CRE 12.7 RATIO Normal 10-20 [facility] Comment on above: Order Comment: Order Date: 02/11/25Order Info: 0786-1 - CMP Performed By: #### L 500.4050 ####[facility] [address] [place], [address] Calcium [Mass/Vol] 8.7 mg/dL Normal 7.6-11.0 [facility] Comment on above: Order Comment: Order Date: 02/11/25Order Info: 0786-1 - CMP Performed By: #### L 500.4050 ####[facility] [address] [place], [address] Chloride [Moles/Vol] 103 mmol/L Normal 98-108 [facility] Comment on above: Order Comment: Order Date: 02/11/25Order Info: 0786-1 - CMP Performed By: #### L 500.4050 ####[facility] [address] [place], [address] CO2 [Moles/Vol] 22.1 mmol/L Normal 21.0-32.0 [facility] Comment on above: Order Comment: Order Date: 02/11/25Order Info: 0786-1 - CMP Performed By: #### L 500.4050 ####[facility] [address] [place], [address] Creatinine [Mass/Vol] 0.68 mg/dL Low 0.70-1.20 [facility] Comment on above: Order Comment: Order Date: 02/11/25Order Info: 0786-1 - CMP Performed By: #### L 500.4050 ####[facility] [address] [place], [address] GAP 12 Normal 5-15 [facility] Comment on above: Order Comment: Order Date: 02/11/25Order Info: 0786-1 - CMP Performed By: #### L 500.4050 ####[facility] [address] [place], [address] GFR/1.73 sq M.predicted among non-blacks MDRD (S/P/Bld) [Vol rate/Area] 114 mL/min/{1.73_m2} Normal >60 [facility] Comment on above: Order Comment: Order Date: 02/11/25Order Info: 0786-1 - CMP Result Comment: mL/m in/1.73m2 CKD-EPI Creatinine Equation (2020) Performed By: #### L 500.4050 ####[facility] [address] [place], [address] Globulin (S) [Mass/Vol] 2.6 g/dL Normal 2.2-4.2 [facility] Comment on above: Order Comment: Order Date: 02/11/25Order Info: 0786-1 - CMP Performed By: #### L 500.4050 ####[facility] [address] [place], [address] Glucose [Mass/Vol] 80 mg/dL Normal 70-99 [facility] Comment on above: Order Comment: Order Date: 02/11/25Order Info: 0786-1 - CMP Performed By: #### L 500.4050 ####[facility] [address] [place], [address] Potassium [Moles/Vol] 3.6 mmol/L Normal 3.3-5.1 [facility] Comment on above: Order Comment: Order Date: 02/11/25Order Info: 0786-1 - CMP Performed By: #### L 500.4050 ####[facility] [address] [place], [address] Sodium [Moles/Vol] 137 mmol/L Normal 133-145 [facility] Comment on above: Order Comment: Order Date: 02/11/25Order Info: 0786-1 - CMP Performed By: #### L 500.4050 ####[facility] [address] [place], [address] T PROT 6.2 g/dL Normal 5.9-8.4 [facility] Comment on above: Order Comment: Order Date: 02/11/25Order Info: 0786-1 - CMP Performed By: #### L 500.4050 ####[facility] [address] [place], [address] Urea nitrogen [Mass/Vol] 9 mg/dL Normal 4-19 [facility] Comment on above: Order Comment: Order Date: 02/11/25Order Info: 0786-1 - CMP Performed By: #### L 500.4050 ####[facility] [address] [place], [address] CBC W/Diff, Automatedon 01-13-2024 Absolute Lymph 1.52 X10 3/uL Normal 0.83-4.51 [facility] Comment on above: Performed By: #### M 100.2200, L7000.1800 #### [facility] Laboratory [address] [place], [address] Absolute Neut 9.7 X10 3/uL High 2.0-7.7 [facility] Comment on above: Performed By: #### M 100.2200, L7000.1800 #### [facility] [address] [place], [address] Basophils/100 WBC (Bld) 0.3 % Normal 0-1 [facility] Comment on above: Performed By: #### M 100.2200, L7000.1800 #### [facility] [address] [place], [address] Eosinophils/100 WBC (Bld) 0.8 % Normal 0-5 [facility] Comment on above: Performed By: #### M 100.2200, L7000.1800 #### [facility] [address] [place], [address] Erythrocyte distribution width (RBC) [Ratio] 13.3 % Normal 11.6-14.6 [facility] Comment on above: Performed By: #### M 100.2200, L7000.1800 #### [facility] [address] [place], [address] Hematocrit (Bld) [Volume fraction] 38.1 % Normal 37-47 [facility] Comment on above: Performed By: #### M 100.2200, L7000.1800 #### [facility] [address] [place], [address] Hemoglobin (Bld) [Mass/Vol] 12.8 g/dL Normal 12.0-15.0 [facility] Comment on above: Performed By: #### M 100.2200, L7000.1800 #### [facility] [address] [place], [address] IG% 1.200 High 0.0-0.9 [facility] Comment on above: Result Comment: IG% - Immature Granulocytes (promyelocytes, myelocytes and metamyelocytes) > 1% indicates that a LEFT SHIFT is Present. Performed By: #### M 100.2200, L7000.1800 #### [facility] [address] [place], [address] Lymphocytes/100 WBC (Bld) 12.4 % Low 19-41 [facility] Comment on above: Performed By: #### M 100.2200, L7000.1800 #### [facility] [address] [place], [address] MCH (RBC) [Entitic mass] 31.1 pg Normal 27.0-32.0 [facility] Comment on above: Performed By: #### M 100.2200, L7000.1800 #### [facility] [address] [place], [address] MCHC (RBC) [Mass/Vol] 33.6 g/dL Normal 32-36 [facility] Comment on above: Performed By: #### M 100.2200, L7000.1800 #### [facility] [address] [place], [address] MCV (RBC) [Entitic vol] 92.7 fL Normal 81-99 [facility] Comment on above: Performed By: #### M 100.2200, L7000.1800 #### [facility] [address] [place], [address] Monocytes/100 WBC (Bld) 6.0 % Normal 0-10 [facility] Comment on above: Performed By: #### M 100.2200, L7000.1800 #### [facility] [address] [place], [address] Neutrophils/100 WBC (Bld) 79.3 % High 47-70 [facility] Comment on above: Performed By: #### M 100.2200, L7000.1800 #### [facility] [address] [place], [address] Nucleated RBC (Bld) [#/Vol] 0 10*3/uL Normal 0-5 [facility] Comment on above: Performed By: #### M 100.2200, L7000.1800 #### [facility] [address] [place], [address] Platelet mean volume (Bld) [Entitic vol] 11.6 fL Normal 6.2-12.0 [facility] Comment on above: Performed By: #### M 100.2200, L7000.1800 #### [facility] [address] [place], [address] Platelets (Bld) [#/Vol] 191 10*3/uL Normal 150-450 [facility] Comment on above: Performed By: #### M 100.2200, L7000.1800 #### [facility] [address] [place], [address] RBC (Bld) [#/Vol] 4.11 10*6/uL Low 4.2-5.4 [facility] Comment on above: Performed By: #### M 100.2200, L7000.1800 #### [facility] [address] [place], [address] RDW SD 44.2 fl High 35.1-43.9 [facility] Comment on above: Performed By: #### M 100.2200, L7000.1800 #### [facility] [address] [place], [address] WBC (Bld) [#/Vol] 12.3 10*3/uL High 4.4-11.0 [facility] Comment on above: Performed By: #### M 100.2200, L7000.1800 #### [facility] [address] [place], [address] Glucose Challenge Gest 1H 50 ashley 02-05-2025 GLU GEST 50g 1H 95 mg/dL Normal 70-140 [facility] Comment on above: Performed By: #### M 100.2200, L7000.1800 #### [facility] [address] [place], [address] HIVon 02-05-2025 HIV Non-Reactive Normal Nonreactive [facility] Comment on above: Result Comment: Non- Reactive Reactive Repeatedly reactive samples must be confirmed according to CDC recommended confirmatory algorithms. The subresults for either HIVAG or AHIV can be used as an aid in the selection of the confirmation algorithm for reactive samples. Send out specimens with Reactive results to [facility] for confirmation. Order the HIV antibody detection and differentiation: [id number] Performed By: #### M 100.2200, L7000.1800 #### [facility] [address] [place], [address] Brake Liner Office Visit Reporton 02-05-2025 Brake Liner Office Visit Report [facility] [address], [address] [place] [address] OFFICE VISIT Date of Service: 02/05/25 MR#: [id number] Acct: [id number] Name: PRISCILA NGO Rep #: [id number] : 1985 Provider: RASTA avendaño Age/Sex: 39/F [place] [facility] [place]: Signed Intake Vital Signs 11/20/24 14:23 01/13/25 09:03 02/05/25 13:01 Height 5 ft 5 in 5 ft 5 in 5 ft 5 in Weight: 160 lb BMI 26.6 BP 112/72 Intake Visit Reasons: 28wk3d ob/glucose/rhogam *SM csection Chief Complaint: 28 Week OB/glucose/rhogam Ehs Specialist Required: No Is patient in pain?: No [...] 02/05/25 @ 13:37 by Ana Cristina Roe SET UP PERSON, SET UP PERSON-C) Rh negative status during Acute sinusitis, unspecified [...] occupational status: employed 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 Normal [facility] Syphilis Antibodieson 2024 Syphilis Abs Non-Reactive Normal Nonreactive [facility] Comment on above: Performed By: #### M 100.2200, L7000.1800 #### [facility] Laboratory [address] [place], [place], [id number] Type AND Screenon 02-05-2025 ABO and Rh group Nom (Bld) Blood group AB Rh(D) negative Normal [facility] Comment on above: Order Comment: PN Performed By: #### M 100.2200, L7000.1800 #### [facility] Laboratory [address] [place], [address] Brake Liner Office Visit Reporton 01-13-2025 Brake Liner Office Visit Report [facility] [address], [address] [place] [address] OFFICE VISIT Date of Service: 01/13/25 MR#: [id number] Acct: [id number] Name: PRISCILA NGO Rep #: [id number] : 1985 Provider: Dr. 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 Normal [facility] Brake Liner Office Visit Reporton 12-18-2024 Brake Liner Office Visit Report [facility] [address], [address] [place] [address] OFFICE VISIT Date of Service: 12/18/24 MR#: [id number] Acct: [id number] Name: PRISCILA NGO Rep #: [id number] : 1985 Provider: Dr. 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 Normal [facility] Brake Liner Office Visit Reporton 11-20-2024 Brake Liner Office Visit Report [facility] [address] [place] [address], [address] [place] [address] OFFICE VISIT Date of Service: 11/20/24 MR#: [id number] Acct: [id number] Name: PRISCILA NGO Rep #: [id number] : 1985 Provider: Dr. 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 Normal [facility] Brake Liner Office Visit Reporton 10-22-2024 Brake Liner Office Visit Report [facility] [address], [address] [place] [address] OFFICE VISIT Date of Service: 10/22/24 MR#: [id number] Acct: [id number] Name: PRISCILA NGO Rep #: [id number] : 1985 Provider: Dr. 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 Normal [facility] MR/BMS.BPon 10-18-2024 MR/BMS.BP [address], [address] [place] [address] OFFICE VISIT Date of Service: 10/17/24 MR#: [id number] Acct: [id number] Name: PRISCILA NGO Rep #: [id number] : 1985 Provider: [facility] Kate smart Age/Sex: 39/F Location: [facility] Status: Signed Intake Vital Signs 06/11/24 08:40 10/14/24 13:19 10/18/24 06:57 Height 5 ft 5 in 5 ft 5 in 5 ft 5 in BP Intake Visit Reasons: follow up Allergies amoxicillin Adverse Reaction (Mild, Verified 10/14/24 13:18) Vomiting erythromycin base Adverse Reaction (Mild, Verified 10/14/24 13:18) Vomiting azithromycin Adverse Reaction (Verified 10/14/24 13:18) Vomiting [facility] Medical History Rh negative status during Acute [...] occupational status: employed 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 Worked on exposure activities [...] (more content not included)... Normal [facility] Urine Cultureon 10-15-2024 URC #2 Below infection level. Mixed Gram Positive Organisms Capac Count 50,000-80,000 MIXC Mixed contaminants. Submit a new specimen if indicated. STAGA Capac Count <1000 Normal [facility] Comment on above: Performed By: #### M 100.2200, L7000.1800 #### [facility] Laboratory [address] 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 Normal [facility] [id number] 10-12-2024 ABO and Rh group Nom (Bld) Blood group AB Rh(D) negative Normal [facility] Comment on above: Order Comment: Comme nts: Age < 13 Weeks Performed By: #### M 100.2200, L7000.1800 #### [facility] Laboratory [address] [place], [address] BRho(D) IGon 10-12-2024 Rho(D) IG Normal [facility] Comment on above: Result Comment: [id number] Rho(D) IG PRSMD TRFSD 10/12/24 1215 Performed By: #### M 100.2200, L7000.1800 #### [facility] [address] [place], [place], [address] Emergency Department Summary on 10-12-2024 Emergency Department Summary [facility] Medical Records Department [address] [place] [address] Emergency Department Summary 10/12/24 MR#: [id number] Acct: [id number] Name: PRISCILA NGO Rep #: [id number] [...] complaints. Patient denies any trauma or intercourse. 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 Normal [facility] Urinalysis, Completeon 10-12 BACTERIA 2+ /hpf Normal None Seen [facility] Comment on above: Order Comment: MONICA CTOR TO SPECIFY Performed By: #### L 400.0001 #### [facility] Laboratory [address] [place], [address] EPI,SQUAMOUS 0-5 SEEN Normal 5-10 [facility] Comment on above: Order Comment: MONICA CTOR TO SPECIFY Performed By: #### L 400.0001 #### [facility] Laboratory [address] [place], [address] RBC 5-10 SEEN Normal 0-5 [facility] Comment on above: Order Comment: COLLE CTOR TO SPECIFY Performed By: #### L 400.0001 #### [facility] Laboratory [address] [place], [address] WBC 5-10 SEEN Normal 0-5 [facility] Comment on above: Order Comment: MONICA CTOR TO SPECIFY Performed By: #### L 400.0001 #### [facility] [address] [place], [address] Mucus Ql (Urine sed) 0 SEEN Normal [facility] Comment on above: Order Comment: COLLE CTOR TO SPECIFY Performed By: #### L 400.0001 #### [facility] [address] 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 Normal [facility] Chlamydia/GC SOFIA aptimaon CHLAMY,NUC ACID Negative Normal Negative [facility] Comment on above: Performed By: #### M 100.2200, L7000.1800 #### [facility] [address] [place], [address] GC BY NUC ACID Negative Normal Negative [facility] Comment on above: Result Comment: Perf ormed at: =G - [facility] [address] [id number] Change Of Address Clerk: Kimberly Campbell MD, Phone: [phone] Performed By: #### M 100.2200, L7000.1800 #### [facility] [address] [place], [address] Urine Cultureon 09-22-2024 URC Mixed Gram Positive Organisms Capac Count <1000 MIXC Mixed contaminants. Submit a new specimen if indicated. Normal [facility] Comment on above: Performed By: #### M 100.2200, L7000.1800 #### [facility] [address] [place], [address] CBC W/Diff, Automatedon Absolute Lymph 1.19 X10 3/uL Normal 0.83-4.51 [facility] Comment on above: Performed By: #### L 3890.6300, L7400.0280, L7000.1800, L509.8000, L509.4005, L100.0100, L3890.6100, L3890.6005, BTS #### [facility] Laboratory [address] [place], [address] Absolute Neut 6.4 X10 3/uL Normal 2.0-7.7 [facility] Comment on above: Performed By: #### L 3890.6300, L7400.0280, L7000.1800, L509.8000, L509.4005, L100.0100, L3890.6100, L3890.6005, BTS #### [facility] [address] [place], [address] Basophils/100 WBC (Bld) 0.4 % Normal 0-1 [facility] Comment on above: Performed By: #### L 3890.6300, L7400.0280, L7000.1800, L509.8000, L509.4005, L100.0100, L3890.6100, L3890.6005, BTS #### [facility] [address] [place], [address] Eosinophils/100 WBC (Bld) 0.5 % Normal 0-5 [facility] Comment on above: Performed By: #### L 3890.6300, L7400.0280, L7000.1800, L509.8000, L509.4005, L100.0100, L3890.6100, L3890.6005, BTS #### [facility] [address] [place], [address] (722) Erythrocyte distribution width (RBC) [Ratio] 12.3 % Normal 11.6-14.6 [facility] Comment on above: Performed By: #### L 3890.6300, L7400.0280, L7000.1800, L509.8000, L509.4005, L100.0100, L3890.6100, L3890.6005, BTS #### [facility] Laboratory [address] [place], [address] (903) Hematocrit (Bld) [Volume fraction] 39.2 % Normal 37-47 [facility] Comment on above: Performed By: #### L 3890.6300, L7400.0280, L7000.1800, L509.8000, L509.4005, L100.0100, L3890.6100, L3890.6005, BTS #### [facility] [address] [place], [address] (451) Hemoglobin (Bld) [Mass/Vol] 13.6 g/dL Normal 12.0-15.0 [facility] Comment on above: Performed By: #### L 3890.6300, L7400.0280, L7000.1800, L509.8000, L509.4005, L100.0100, L3890.6100, L3890.6005, BTS #### [facility] [address] [place], [address] IG% 0.500 Normal 0.0-0.9 [facility] Comment on above: Result Comment: IG% - Immature Granulocytes (promyelocytes, myelocytes and metamyelocytes) > 1% indicates that a LEFT SHIFT is Present. Performed By: #### L 3890.6300, L7400.0280, L7000.1800, L509.8000, L509.4005, L100.0100, L3890.6100, L3890.6005, BTS #### [facility] [address] [place], [address] Lymphocytes/100 WBC (Bld) 14.9 % Low 19-41 [facility] Comment on above: Performed By: #### L 3890.6300, L7400.0280, L7000.1800, L509.8000, L509.4005, L100.0100, L3890.6100, L3890.6005, BTS #### [facility] [address] [place], [address] MCH (RBC) [Entitic mass] 31.1 pg Normal 27.0-32.0 [facility] Comment on above: Performed By: #### L 3890.6300, L7400.0280, L7000.1800, L509.8000, L509.4005, L100.0100, L3890.6100, L3890.6005, BTS #### [facility] [address] [place], [address] MCHC (RBC) [Mass/Vol] 34.7 g/dL Normal 32-36 [facility] Comment on above: Performed By: #### L 3890.6300, L7400.0280, L7000.1800, L509.8000, L509.4005, L100.0100, L3890.6100, L3890.6005, BTS #### [facility] [address] [place], [address] MCV (RBC) [Entitic vol] 89.5 fL Normal 81-99 [facility] Comment on above: Performed By: #### L 3890.6300, L7400.0280, L7000.1800, L509.8000, L509.4005, L100.0100, L3890.6100, L3890.6005, BTS #### [facility] [address] [place], [address] Monocytes/100 WBC (Bld) 4.0 % Normal 0-10 [facility] Comment on above: Performed By: #### L 3890.6300, L7400.0280, L7000.1800, L509.8000, L509.4005, L100.0100, L3890.6100, L3890.6005, BTS #### [facility] [address] [place], [address] Neutrophils/100 WBC (Bld) 79.7 % High 47-70 [facility] Comment on above: Performed By: #### L 3890.6300, L7400.0280, L7000.1800, L509.8000, L509.4005, L100.0100, L3890.6100, L3890.6005, BTS #### [facility] [address], [address] Nucleated RBC (Bld) [#/Vol] 0 10*3/uL Normal 0-5 [facility] Comment on above: Performed By: #### L 3890.6300, L7400.0280, L7000.1800, L509.8000, L509.4005, L100.0100, L3890.6100, L3890.6005, BTS #### [facility] [address] [place], [address] Platelet mean volume (Bld) [Entitic vol] 11.2 fL Normal 6.2-12.0 [facility] Comment on above: Performed By: #### L 3890.6300, L7400.0280, L7000.1800, L509.8000, L509.4005, L100.0100, L3890.6100, L3890.6005, BTS #### [facility] [address] [place], [address] Platelets (Bld) [#/Vol] 228 10*3/uL Normal 150-450 [facility] Comment on above: Performed By: #### L 3890.6300, L7400.0280, L7000.1800, L509.8000, L509.4005, L100.0100, L3890.6100, L3890.6005, BTS #### [facility] [address] [place], [address] RBC (Bld) [#/Vol] 4.38 10*6/uL Normal 4.2-5.4 [facility] Comment on above: Performed By: #### L 3890.6300, L7400.0280, L7000.1800, L509.8000, L509.4005, L100.0100, L3890.6100, L3890.6005, BTS #### [facility] [address] [place], [address] RDW SD 39.8 fl Normal 35.1-43.9 [facility] Comment on above: Performed By: #### L 3890.6300, L7400.0280, L7000.1800, L509.8000, L509.4005, L100.0100, L3890.6100, L3890.6005, BTS #### [facility] [address] [place], [address] WBC (Bld) [#/Vol] 8.0 10*3/uL Normal 4.4-11.0 [facility] Comment on above: Performed By: #### L 3890.6300, L7400.0280, L7000.1800, L509.8000, L509.4005, L100.0100, L3890.6100, L3890.6005, BTS #### [facility] [address] [place], [place], [id number] Chlamydia/GC SOFIA aptimaon CHLAMY,NUC ACID Normal [facility] Comment on above: Result Comment: DUPL ICATE Performed By: #### L 3890.6300, L7400.0280, L7000.1800, L509.8000, L509.4005, L100.0100, L3890.6100, L3890.6005, BTS ####[facility] [address] [place], [place], [id number] GC BY NUC ACID Normal [facility] Comment on above: Result Comment: DUPL ICATE Performed By: #### L 3890.6300, L7400.0280, L7000.1800, L509.8000, L509.4005, L100.0100, L3890.6100, L3890.6005, BTS ####[facility] [address] [place], [address] HIV - WCHon 09-19-2024 HIV Non-Reactive [facility] Comment on above: Order Comment: Reaso n for Exam: Performed By: #### L 3890.6300, L7400.0280, L7000.1800, L509.8000, L509.4005, L100.0100, L3890.6100, L3890.6005, BTS ####[facility] [address] [place], [address] Hepatitis B Surface Antigeno n 09-19-2024 HEP B Surf Ag Non-Reactive Normal Nonreactive [facility] Comment on above: Order Comment: Reaso n for Exam: Performed By: #### L 3890.6300, L7400.0280, L7000.1800, L509.8000, L509.4005, L100.0100, L3890.6100, L3890.6005, BTS ####[facility] [address] [place], [place], [address] Hepatitis C Antibodyon 09-19 Hepatitis C AB Non-Reactive Normal Nonreactive [facility] Comment on above: Order Comment: Reaso n for Exam: Result Comment: Non Reactive: < 0.8 Equivocal: >/= 0.8 to < 1.0 Reactive: >/= 1.0 The [facility] requires that a reactive/equivocal HCV antibody result be sent out for confirmation. HCV Quant by PCR testing. Performed By: #### L 3890.6300, L7400.0280, L7000.1800, L509.8000, L509.4005, L100.0100, L3890.6100, L3890.6005, BTS ####[facility] [address] [place], [address] L509.8000on 09-19-2024 Syphilis Abs Non-Reactive Normal [facility] Comment on above: Order Comment: Reaso n for Exam: Performed By: #### L 3890.6300, L7400.0280, L7000.1800, L509.8000, L509.4005, L100.0100, L3890.6100, L3890.6005, BTS #### [facility] [address] 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 Normal [facility] PAP IG HPV APTIMA 16/18,45on 09-19-2024 DIAG Normal [facility] Comment on above: Order Comment: Clini dwight Info: Collection Vial: Thin Prep VialGYN Source: CERVICALDate LMP/Menopause: LMPCollection Techniques: CX BROOM ONLY Result Comment: NOT COLLECTED PER SATHYA IN OFFICE Performed By: #### L 3890.6300, L7400.0280, L7000.1800, L509.8000, L509.4005, L100.0100, L3890.6100, L3890.6005, BTS ####[facility] [address] [place], [place], [id number] HPV Vannessa Rfx Normal [facility] Comment on above: Order Comment: Clini dwight Info: Collection Vial: Thin Prep VialGYN Source: CERVICALDate LMP/Menopause: LMPCollection Techniques: CX BROOM ONLY Result Comment: NOT COLLECTED PER SATHYA IN OFFICE Performed By: #### L 3890.6300, L7400.0280, L7000.1800, L509.8000, L509.4005, L100.0100, L3890.6100, L3890.6005, BTS ####[facility] [address] [place], [place], [id number] Rubella IgGon 09-19-2024 Rubella IgG Reactive Normal Nonreactive [facility] Comment on above: Order Comment: Reaso n for Exam: Result Comment: Anti body Results Interpretation of Immune Status Non Reactive Presumed Non-Immune Equivocal Equivocal Reactive Presumed Immune Performed By: #### L 3890.6300, L7400.0280, L7000.1800, L509.8000, L509.4005, L100.0100, L3890.6100, L3890.6005, BTS #### [facility] Laboratory [address], [address] Type AND Screenon 09-19-2024 ABO and Rh group Nom (Bld) Blood group AB Rh(D) negative Normal [facility] Comment on above: Order Comment: PN Performed By: #### L 3890.6300, L7400.0280, L7000.1800, L509.8000, L509.4005, L100.0100, L3890.6100, L3890.6005, BTS #### [facility] [address] [place], [place], [id number] MR/BMS.BPon 09-16-2024 MR/BMS.[address], [address] [place] [address] OFFICE VISIT Date of Service: 09/10/24 MR#: [id number] Acct: [id number] Name: DYLANPRISCILA PRICE Rep #: [id number] : 1985 [facility] Age/Sex: 39/F [place] [facility] Status: Signed Intake Vital Signs 06/11/24 08:40 09/16/24 12:10 Height 5 ft 5 in 5 ft 5 in BP Intake Visit Reasons: follow up Allergies amoxicillin Adverse Reaction (Mild, Verified 09/06/24 11:03) Vomiting erythromycin base Adverse Reaction (Mild, Verified 09/06/24 11:03) Vomiting azithromycin Adverse Reaction (Verified 09/06/24 11:03) Vomiting [facility] Medical History (Updated 09/14/24 @ 07:14 by Kate Larson [facility]) Rh negative status during Acute sinusitis, unspecified [...] 2 current occupational status: employed current occupation: [employer] current occupational exposures/hazards: No pets and animals: [...] 5-6 times per week duration: 45-60 minutes/day tish/orthodox: Roman Catholic seatbelt use: always do you feel safe [...] (minutes): 60 Type of visit: psychotherapy and [id number] Coding [place] [address] PSYTX W PT 60 MINUTES Patient Type Established Diagnoses Anxiety F41.9 Time Spent (min) 60 09/16/24 1210 Date Kate Larson [facility] Cosigner Signature: Date (if applicable) CC: Normal [facility] MR/BMS.BPon 09-09-2024 MR/[place] [address] OFFICE VISIT Date of Service: 09/05/24 MR#: [id number] Acct: [id number] Name: PRISCILA NGO Rep #: [id number] : 1985 Provider: ANGELES smart Age/Sex: 39/F [place] [facility] Status: Signed Intake Vital Signs 06/11/24 08:40 09/09/24 06:50 Height 5 ft 5 in 5 ft 5 in Weight: 138 lb 2 oz BMI 22.9 BP 110/70 BP Intake Visit Reasons: Establish care Allergies amoxicillin Adverse Reaction (Mild, Verified 09/06/24 11:03) Vomiting erythromycin base Adverse Reaction (Mild, Verified 09/06/24 11:03) Vomiting azithromycin Adverse Reaction (Verified 09/06/24 11:03) Vomiting [facility] Medical History (Updated 09/14/24 @ 07:14 by Kate Larson [facility]) Rh negative status during Acute sinusitis, unspecified [...] occupational status: employed 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 She previously participated in therapy with this therapist in 2023 at [facility]. She has not [...] blood pressure when she experiences panic. Her OB-ADULT BASIC EDUCATION MANAGER prescribed Buspirone 5mg 2x daily, which managed [...] sleep is off. This last occurred around [facility] [place]. Interests - Able to enjoy interests. Enjoyed [...] (more content not included)... Normal [facility] Glucoseon 07-30-2024 Glucose [Mass/Vol] 100 mg/dL Normal 74-106 [facility] Comment on above: Order Comment: Order Date: 07/30/24Order Info: [id number] - LIPID Result Comment: Fast ing Glucose result from 100 to 125 mg/dL suggests IMPAIRED HOMEOSTASIS per A.D.A. criteria. Performed By: #### L 501.0100 ####[facility] [address] [place], [address] Lipid Profileon 07-30-2024 Cholesterol [Mass/Vol] 174 mg/dL Normal 200 [facility] Comment on above: Order Comment: Order Date: 07/30/24Order Info: [id number] - LIPID Result Comment: <200 mg/dL Desirable 200-240 mg/dL Borderline >240 mg/dL High Risk Performed By: #### L 500.4100 ####[facility] [address] [place], [address] Cholesterol in HDL [Mass/Vol] 69 mg/dL Normal [facility] Comment on above: Order Comment: Order Date: 07/30/24Order Info: [id number] - LIPID Result Comment: The drugs N-Acetylcysteine and Metamizole may falsely depress this assay. Reference Range HDL <40 mg/dL Low HDL Cholesterol HDL >or= 60 mg/dL High HDL Cholesterol Performed By: #### L 500.4100 ####[facility] [address] [place], [address] Cholesterol in LDL [Mass/Vol] 95 mg/dL Normal 0-130 [facility] Comment on above: Order Comment: Order Date: 07/30/24Order Info: [id number] - LIPID Performed By: #### L 500.4100 ####[facility] [address] [place], [address] Cholesterol in VLDL [Mass/Vol] 10 mg/dL Normal 5-40 [facility] Comment on above: Order Comment: Order Date: 07/30/24Order Info: [id number] - LIPID Performed By: #### L 500.4100 ####[facility] [address] [place], [address] Triglyceride [Mass/Vol] 51 mg/dL Normal [facility] Comment on above: Order Comment: Order Date: 07/30/24Order Info: [id number] - LIPID Result Comment: The drugs N-Acetylcysteine and Metamizole may falsely depress this assay. Serum Triglycerides Reference Interval Normal <150 mg/dL Borderline high 150 - 199 mg/dL High 200 - 499 mg/dL Very High > or = 500 mg/dL Performed By: #### L 500.4100 ####[facility] [address] [place], [address] PAP IG HPV APTIMA 16/18,45on 06-15-2024 ADEQ Comment Normal . [facility] Comment on above: Order Comment: Speci men Comment: [id number] Comment: No. of containers..01 ThinPrep Vial Result Comment: Sati sfactory for evaluation. Endocervical and/or squamous metaplastic cells (endocervical component) are present. Performed By: #### L 7400.0280 ####[facility] [address] [place], [address] COMM . Normal . [facility] Comment on above: Order Comment: Speci men Comment: [id number] Comment: No. of containers..01 ThinPrep Vial Performed By: #### L 7400.0280 ####[facility] [address] [place], [address] COMMENT Comment Normal . [facility] Comment on above: Order Comment: Speci men Comment: [id number] Comment: No. of containers..01 ThinPrep Vial Result Comment: This liquid based ThinPrep(R) pap test was screened with the use of an image guided system. Performed By: #### L 7400.0280 ####[facility] [address] [place], [address] DIAG Comment Normal . [facility] Comment on above: Order Comment: Speci men Comment: [id number] Comment: No. of containers..01 ThinPrep Vial Result Comment: NEGA TIVE FOR INTRAEPITHELIAL LESION OR MALIGNANCY. Performed By: #### L 7400.0280 ####[facility] [address] [place], [address] HPV APTIMA, HR Negative Normal Negative [facility] Comment on above: Order Comment: Speci men Comment: [id number] Comment: No. of containers..01 ThinPrep Vial Result Comment: This nucleic acid amplification test detects fourteen high- risk HPV types (16,18,31,33,35,39,45,51,52,56,58,59,66,68) without differentiation. Performed By: #### L 7400.0280 ####[facility] [address] [place], [address] HPV Vannessa Rfx Comment Normal . [facility] Comment on above: Order Comment: Speci men Comment: [id number] Comment: No. of containers..01 ThinPrep Vial Result Comment: Crit eria not met, HPV Genotype not performed. Performed at: [address] [id number] Change Of Address Clerk: Kimberly Campbell MD, Phone: [phone] Performed at: = - [address] [id number] Change Of Address Clerk: Kimberly Campbell MD, Phone: [phone] Performed By: #### L 7400.0280 ####[facility] [address] [place], [address] PAPSMR Comment Normal . [facility] Comment on above: Order Comment: Speci men Comment: [id number] Comment: No. of containers..01 ThinPrep Vial Result Comment: The Pap smear is a screening test designed to aid in the detection of premalignant and malignant conditions of the uterine cervix. It is not a diagnostic procedure and should not be used as the sole means of detecting cervical cancer. Both false-positive and false-negative reports do occur. Performed By: #### L 7400.0280 ####[facility] [address] [place], [place], [id number] PERFORM Comment Normal . [facility] Comment on above: Order Comment: Speci men Comment: [id number] Comment: No. of containers..01 ThinPrep Vial Result Comment: Erika Mccarthy, Flat Sorting Machine Clerk (ASCP) Performed By: #### L 7400.0280 ####[facility] [address] [place], [address] Brake Liner Office Visit Reporton 06-11-2024 Brake Liner Office Visit Report [facility] [address], [address] [place] [address] OFFICE VISIT Date of Service: 06/11/24 MR#: [id number] Acct: [id number] Name: PRISCILA NGO Rep #: [id number] : 1985 Provider: RASTA avendaño Age/Sex: 39/F [place] [facility] Status: Signed Intake Vital Signs 06/07/24 09:19 06/11/24 08:40 Height 5 ft 5 in 5 ft 5 in Weight: 138 lb 2 oz BMI 22.9 BP 130/87 H 110/70 Intake Visit Reasons: IUD REMOVAL Chief Complaint: IUD removal Ehs Specialist Required: No Is patient in pain?: No [...] 06/11/24 @ 08:57 by Ana Cristina Roe SET UP PERSON, SET UP PERSON-C) Laryngitis Acute otitis media, right Acute sinusitis, [...] at home: Yes 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 Coding Level of Care Code Attention Communications Manager Diagnoses Encounter for IUD removal Z30.432 Assessment and Plan Assessment and Plan (1) Encounter for IUD removal: Orders: Orders IUD Removal Today Z30.432 - Encounter for removal of intrauterine contraceptive device Plan condoms until ready to conceive start vitamin Call with first positive test or in 6 m (more content not included)... Normal [facility] Brake Liner Office Visit Reporton 06-07-2024 Brake Liner Office Visit Report [facility] [address] [place] [address], [address] [place] [address] OFFICE VISIT Date of Service: 06/07/24 MR#: [id number] Acct: [id number] Name: PRISCILA NGO Rep #: [id number] : 1985 Provider: Dr. 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 Date Name GA/Weeks Outcome Route Bth Weight Gen Labor Lgth Anesthesia Del Locatn Provider FOB 07/16/20 Meron 40 live - full term Female epidural [facility] Tiffany 04/14/22 Maira 38 live - full term 8lbs 5oz Female spinal [facility] Sonya Menard Delivery Date: 07/16/20 Last Updated by: Sathya English arrest of descent Delivery Date: 04/14/22 Last Updated by: Federica Alexandra 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 Normal [facility] Absolute lymphocyte countOrd ered By: Alisia Foster on 07-05-2023 Lymphocytes Auto (Unsp spec) [#/Vol] 1.71 10*3/uL 0.83-4.51 [facility] Basophil percentageOrdered B y: Alisia Foster on 07-05-2023 Basophils/100 WBC (Bld) 0.5 % 0-1 [facility] Bilirubin [Mass/Vol] 0.70 mg/dL 0.20-1.00 [facility] Comment on above: For patients on eltr ombopag therapy, use of Dimension [place] TBIL is not recommended. Chloride [Moles/Vol] 104 mmol/L 98-107 [facility] Eosinophils/100 WBC (Bld) 0.7 % 0-5 [facility] Glucose [Mass/Vol] 69 mg/dL 74-106 [facility] Neutrophils (Bld) [#/Vol] 4.0 10*3/uL 2.0-7.7 [facility] Neutrophils/100 WBC (Bld) 64.4 % 47-70 [facility] Potassium [Moles/Vol] 3.7 mmol/L 3.5-5.1 [facility] Protein [Mass/Vol] 7.1 g/dL 6.4-8.2 [facility] Sodium [Moles/Vol] 139 mmol/L 136-145 [facility] WBC (Bld) [#/Vol] 6.1 10*3/uL 4.4-11.0 [facility] Blood erythrocytes count (nu mber/volume)Ordered By: Alisia Foster on 07-05-2023 RBC (Bld) [#/Vol] 4.71 10*6/uL 4.2-5.4 [facility] Blood hemoglobin measurement (mass/volume)Ordered By: Alisia Foster on 07-05-2023 Hemoglobin (Bld) [Mass/Vol] 14.3 g/dL 12.0-15.0 [facility] Blood lymphocytes/100 leukoc ytesOrdered By: Alisia Foster on 07-05-2023 Lymphocytes/100 WBC (Bld) 27.9 % 19-41 [facility] Blood monocytes/100 leukocyt esOrdered By: Alisia Foster on 07-05-2023 Monocytes/100 WBC (Bld) 6.2 % 0-10 [facility] Blood platelet mean volumeOr dered By: Alisia Foster on 07-05-2023 Platelet mean volume (Bld) [Entitic vol] 11.7 fL 6.2-12.0 [facility] Determination of erythrocyte mean corpuscular volume (MCV)Ordered By: Alisia Foster on 07-05-2023 MCV (RBC) [Entitic vol] 89.6 fL 81-99 [facility] Hematocrit Auto (Bld) [Volum e fraction]Ordered By: Alisia Foster on 07-05-2023 Hematocrit (Bld) [Volume fraction] 42.2 % 37-47 [facility] Laboratory - Chemistry and C hemistry - challengeOrdered By: Alisia Foster on 07-05-2023 ALP [Catalytic activity/Vol] 59 U/L 45-117 [facility] ALT [Catalytic activity/Vol] 35 U/L 13-56 [facility] CO2 [Moles/Vol] 28.0 mmol/L 21.0-32.0 [facility] Globulin (S) [Mass/Vol] 2.9 g/dL 2.2-4.2 [facility] Magnesium [Mass/Vol] 2.1 mg/dL 1.6-2.6 [facility] Urea nitrogen/Creatinine [Mass ratio] 15.4 mg/mg 10-20 [facility] Laboratory - Hematology and Cell countsOrdered By: Alisia Foster on 07-05-2023 Erythrocyte distribution width (RBC) [Entitic vol] 38.3 fL 35.1-43.9 [facility] Erythrocyte distribution width (RBC) [Ratio] 11.9 % 11.6-14.6 [facility] Immature granulocytes/100 WBC (Bld) 0.300 % 0.0-0.9 [facility] Comment on above: IG% - Immature Granu locytes (promyelocytes, myelocytes and metamyelocytes) > 1% indicates that a LEFT SHIFT is Present. MCH (RBC) [Entitic mass] 30.4 pg 27.0-32.0 [facility] Nucleated RBC/100 WBC (Bld) [Ratio] 0 % 0-5 [facility] MCHC Auto (RBC) [Mass/Vol]Or dered By: Alisia Foster on 07-05-2023 MCHC (RBC) [Mass/Vol] 33.9 g/dL 32-36 [facility] No Panel InformationOrdered By: Alisia Foster on 07-05-2023 Estimated GFR (MDRD) Amer 118 mL/min >60 [facility] Comment on above: GFR Calc Estimated GFR (MDRD) Non-Af Amer 98 mL/min >60 [facility] Comment on above: Non- GFR Calc Thyroid Stimulating Hormone (TSH) 1.42 uIU/mL 0.358-3.74 [facility] Platelets bldOrdered By: Patti Foster on 07-05-2023 Platelets (Bld) [#/Vol] 273 10*3/uL 150-450 [facility] Serum or plasma albumin sunshine urement (mass/volume)Ordered By: Alisia Foster on 07-05-2023 Albumin [Mass/Vol] 4.2 g/dL 3.2-5.0 [facility] Serum or plasma albumin/glob ulin mass ratioOrdered By: Alisia Foster on 07-05-2023 Albumin/Globulin [Mass ratio] 1.4 {ratio} 0.9-2.4 [facility] Serum or plasma calcium sunshine urement (mass/volume)Ordered By: Alisia Foster on 07-05-2023 Calcium [Mass/Vol] 8.2 mg/dL 8.5-10.1 [facility] Serum or plasma creatinine m easurement (mass/volume)Ordered By: Alisia Foster on 07-05-2023 Creatinine [Mass/Vol] 0.71 mg/dL 0.55-1.02 [facility] Comment on above: The validity of the calculated GFR & GFRAA in patients over 70 years has not been determined. Clinical correlation is essential. Serum or plasma urea nitroge n measurement (mass/volume)Ordered By: Alisai Foster on 07-05-2023 Urea nitrogen [Mass/Vol] 11 mg/dL 7-18 [facility] Thin prep Papanicolaou smear with manual screeningOrdered By: Alisia Foster on 07-05-2023 Thin prep Papanicolaou smear with manual screening 17 U/L 15-37 [facility] Thin prep Papanicolaou smear with manual screening 7 5-15 [facility] Whole blood hemoglobin A1c/t otal hemoglobin ratio (mass fraction)Ordered By: Alisia Foster on 07-05-2023 HbA1c (Bld) [Mass fraction] 5.0 % 3.8-5.6 [facility] Comment on above: Normal < 5.7 % Predi abetic 5.7 - 6.4 % Diabetic >or= 6.5 % Please note range changes. Basophil percentageOrdered B y: Porfirio Pizano on 02-20-2023 Basophil percentage 0-5 SEEN /hpf 0-5 [facility] Bilirubin Test strip Ql (U)O rdered By: Porfirio Pizano on 02-20-2023 Bilirubin Ql (U) Negative Negative [facility] Culture, urineOrdered By: St red Pizano on 02-20-2023 Bacteria identified Cx Nom (U) Streptococcus group A [facility] Ketones Test strip Ql (U)Ord ered By: Porfirio Pizano on 02-20-2023 Ketones Ql (U) Negative Negative [facility] Laboratory - Chemistry and C hemistry - challengeon 02-20-2023 HCG ( test) Ql (U) Negative [facility] Bilirubin Ql (U) Negative [facility] Glucose Ql (U) Negative [facility] Ketones Ql (U) Negative [facility] pH (U) 5.0 [pH] [facility] Specific gravity (U) [Rel density] 1.005 [facility] Urobilinogen (U) [Mass/Vol] 0.3148102 mg/dL [facility] Laboratory - Hematology and Cell countson 02-20-2023 Hemoglobin Ql (U) Hemolyzed [facility] Laboratory - Specimen inform ationon 02-20-2023 Clarity (U) Clear [facility] Color (U) Kemi [facility] Laboratory - Urinalysison Nitrite Ql (U) Negative [facility] Protein Ql (U) Negative [facility] Mucus LM Ql (Urine sed)Order ed By: Porfirio Pizano on 02-20-2023 Mucus Ql (Urine sed) 0 SEEN /hpf [facility] Nitrite Test strip Ql (U)Ord ered By: Porfirio Pizano on 02-20-2023 Nitrite Ql (U) Negative Negative [facility] No Panel Informationon 02-20 Urine Leukocytes Positive [facility] Urine Non-Hemolyzed Blood Large [facility] Protein Test strip Ql (U)Ord ered By: Porfirio Pizano on 02-20-2023 Protein Ql (U) Negative Negative [facility] Squamous epithelial cells de tection in urine sediment by light microscopyOrdered By: Porfirio Pizano on 02-20-2023 Epithelial cells.squamous LM Ql (Urine sed) 0 SEEN /hpf 5-10 [facility] Urine blood detectionOrdered By: Porfirio Pizano on 02-20-2023 RBC Ql (U) 150 /ul Negative [facility] RBC Ql (U) 0 SEEN /hpf 0-5 [facility] Urine clarityOrdered By: Gagan Pizano on 02-20-2023 Clarity (U) Clear Clear [facility] Urine color determinationOrd ered By: Porfirio Pizano on 02-20-2023 Color (U) Yellow Yellow [facility] Urine glucose detectionOrder ed By: Porfirio Pizano on 02-20-2023 Glucose Ql (U) Normal mg/dl Normal [facility] Urine leukocyte esterase det ection by dipstickOrdered By: Porfirio Pizano on 02-20-2023 Leukocyte esterase Test strip Ql (U) 500 /ul Negative [facility] Urine pHOrdered By: Porfirio marcelo on 02-20-2023 pH (U) 6.0 [pH] 5.0 - 8.0 [facility] Urine sediment bacteria coun t by microscopy (number/high power field)Ordered By: Porfirio Pizano on 02-20-2023 Bacteria LM.HPF (Urine sed) [#/Area] 0 /[HPF] None Seen [facility] Urine specific gravity measu rementOrdered By: Porfirio Pizano on 02-20-2023 Specific gravity (U) [Rel density] 1.005 1.002-1.030 [facility] Urobilinogen Auto test strip Ql (U)Ordered By: Porfirio Pizano on 02-20-2023 Urobilinogen Ql (U) Normal mg/dl Normal [facility] Absolute lymphocyte counton 05-26-2022 Lymphocytes Auto (Unsp spec) [#/Vol] 2.12 10*3/uL 0.83-4.51 [facility] Work Phone: Basophil percentageon 2021 Basophils/100 WBC (Bld) 0.6 % 0-1 [facility] Work Phone: Eosinophils/100 WBC (Bld) 0.9 % 0-5 [facility] Work Phone: Neutrophils (Bld) [#/Vol] 5.5 10*3/uL 2.0-7.7 [facility] Work Phone: Neutrophils/100 WBC (Bld) 66.8 % 47-70 [facility] Work Phone: WBC (Bld) [#/Vol] 8.2 10*3/uL 4.4-11.0 [facility] Work Phone: Blood erythrocytes count (nu mber/volume)on 05-26-2022 RBC (Bld) [#/Vol] 4.61 10*6/uL 4.2-5.4 [facility]: Blood hemoglobin measurement (mass/volume)on 05-26-2022 Hemoglobin (Bld) [Mass/Vol] 14.2 g/dL 12.0-15.0 [facility] Work Phone: Blood lymphocytes/100 leukoc yteson 05-26-2022 Lymphocytes/100 WBC (Bld) 25.9 % 19-41 [facility] Work Phone: Blood monocytes/100 leukocyt eson 05-26-2022 Monocytes/100 WBC (Bld) 5.4 % 0-10 [facility] Work Phone: Blood platelet mean volumeon 05-26-2022 Platelet mean volume (Bld) [Entitic vol] 10.6 fL 6.2-12.0 [facility] Work Phone: Determination of erythrocyte mean corpuscular volume (MCV)on 05-26-2022 MCV (RBC) [Entitic vol] 87.2 fL 81-99 [facility] Work Phone: Hematocrit Auto (Bld) [Volum e fraction]on 05-26-2022 Hematocrit (Bld) [Volume fraction] 40.2 % 37-47 [facility] Work Phone: Laboratory - Hematology and Cell countson 05-26-2022 Erythrocyte distribution width (RBC) [Entitic vol] 37.4 fL 35.1-43.9 [facility] Work Phone: Erythrocyte distribution width (RBC) [Ratio] 11.8 % 11.6-14.6 [facility] Work Phone: Immature granulocytes/100 WBC (Bld) 0.400 % 0.0-0.9 [facility] Work Phone: Comment on above: IG% - Immature Granu locytes (promyelocytes, myelocytes and metamyelocytes) > 1% indicates that a LEFT SHIFT is Present. MCH (RBC) [Entitic mass] 30.8 pg 27.0-32.0 [facility] Work Phone: Nucleated RBC/100 WBC (Bld) [Ratio] 0 % 0-5 [facility] Work Phone: MCHC Auto (RBC) [Mass/Vol]on 05-26-2022 MCHC (RBC) [Mass/Vol] 35.3 g/dL 32-36 [facility] Work Phone: Platelets bldon 05-26-2022 Platelets (Bld) [#/Vol] 235 10*3/uL 150-450 [facility] Work Phone: Laboratory - Chemistry and C hemistry - challengeon 04-26-2022 Bilirubin Ql (U) Negative [facility] Work Phone: Glucose Ql (U) Negative [facility] Work Phone: Ketones Ql (U) Negative [facility] Work Phone: pH (U) 5.0 [pH] [facility] Work Phone: Specific gravity (U) [Rel density] 1.015 [facility] Work Phone: Urobilinogen (U) [Mass/Vol] 1 mg/dL [facility] Work Phone: Laboratory - Hematology and Cell countson 04-26-2022 Hemoglobin Ql (U) Negative [facility] Work Phone: Laboratory - Specimen inform ationon 04-26-2022 Clarity (U) Clear [facility] Work Phone: Color (U) Yellow [facility] Work Phone: Laboratory - Urinalysison Nitrite Ql (U) Negative [facility] Work Phone: Protein Ql (U) Negative [facility] Work Phone: No Panel Informationon 04-26 Urine Leukocytes Negatve [facility] Work Phone: Basophil percentageon 2021 WBC (Bld) [#/Vol] 12.9 10*3/uL 4.4-11.0 [facility] Work Phone: Blood erythrocytes count (nu mber/volume)on 04-15-2022 RBC (Bld) [#/Vol] 3.26 10*6/uL 4.2-5.4 [facility] Work Phone: Blood hemoglobin measurement (mass/volume)on 04-15-2022 Hemoglobin (Bld) [Mass/Vol] 9.8 g/dL 12.0-15.0 [facility] Work Phone: Blood platelet mean volumeon 04-15-2022 Platelet mean volume (Bld) [Entitic vol] 12.0 fL 6.2-12.0 [facility] Work Phone: Determination of erythrocyte mean corpuscular volume (MCV)on 04-15-2022 MCV (RBC) [Entitic vol] 90.8 fL 81-99 [facility] Work Phone: Hematocrit Auto (Bld) [Volum e fraction]on 04-15-2022 Hematocrit (Bld) [Volume fraction] 29.6 % 37-47 [facility] Work Phone: Laboratory - Hematology and Cell countson 04-15-2022 Erythrocyte distribution width (RBC) [Entitic vol] 46.2 fL 35.1-43.9 [facility] Work Phone: Erythrocyte distribution width (RBC) [Ratio] 14.0 % 11.6-14.6 [facility] Work Phone: MCH (RBC) [Entitic mass] 30.1 pg 27.0-32.0 [facility] Work Phone: MCHC Auto (RBC) [Mass/Vol]on 04-15-2022 MCHC (RBC) [Mass/Vol] 33.1 g/dL 32-36 [facility] Work Phone: Platelets bldon 04-15-2022 Platelets (Bld) [#/Vol] 123 10*3/uL 150-450 [facility] Work Phone: Absolute lymphocyte counton 04-14-2022 Lymphocytes Auto (Unsp spec) [#/Vol] 1.56 10*3/uL 0.83-4.51 [facility] Work Phone: Basophil percentageon 2021 Basophils/100 WBC (Bld) 0.2 % 0-1 [facility] Work Phone: Eosinophils/100 WBC (Bld) 0.3 % 0-5 [facility] Work Phone: Neutrophils (Bld) [#/Vol] 7.3 10*3/uL 2.0-7.7 [facility] Work Phone: Neutrophils/100 WBC (Bld) 77.1 % 47-70 [facility] Work Phone: Blood lymphocytes/100 leukoc yteson 04-14-2022 Lymphocytes/100 WBC (Bld) 16.4 % 19-41 [facility] Work Phone: Blood monocytes/100 leukocyt eson 04-14-2022 Monocytes/100 WBC (Bld) 5.5 % 0-10 [facility] Work Phone: Laboratory - Hematology and Cell countson 04-14-2022 Immature granulocytes/100 WBC (Bld) 0.500 % 0.0-0.9 [facility] Work Phone: Comment on above: IG% - Immature Granu locytes (promyelocytes, myelocytes and metamyelocytes) > 1% indicates that a LEFT SHIFT is Present. Nucleated RBC/100 WBC (Bld) [Ratio] 0 % 0-5 [facility] Work Phone: Laboratory - Chemistry and C hemistry - challengeon 04-08-2022 Glucose Ql (U) Negative [facility] Work Phone: Laboratory - Urinalysison Protein Ql (U) Negative [facility] Work Phone: SARS coronavirus RNA [Presen ce] in Unspecified specimen by SOFIA with probe detectionon 04-08-2022 SARS-CoV RNA SOFIA+probe Ql (Unsp spec) Not detected Not Detected [facility] Work Phone: Comment on above: [...] of in vitro diagnostic tests for detection [id number] virus and/or diagnosis of COVID-19 infectionunder section [...] 04-01-2022 Glucose Ql (U) Negative [facility] Work Phone: Laboratory - Urinalysison Protein Ql (U) Negative [facility] Work Phone: Laboratory - Chemistry and C hemistry - challengeon 03-25-2022 Glucose Ql (U) Negative [facility] Work Phone: Laboratory - Urinalysison Protein Ql (U) Negative [facility] Work Phone: Laboratory - Chemistry and C hemistry - challengeon 03-09-2022 Glucose Ql (U) Negative [facility] Work Phone: Laboratory - Urinalysison Protein Ql (U) Negative [facility] Work Phone: Laboratory - Chemistry and C hemistry - challengeon 02-25-2022 Glucose Ql (U) Negative [facility] Work Phone: Laboratory - Urinalysison Protein Ql (U) Negative [facility] Work Phone: Laboratory - Chemistry and C hemistry - challengeon 02-11-2022 Glucose Ql (U) Negative [facility] Work Phone: Laboratory - Urinalysison Protein Ql (U) Negative [facility] Work Phone: Gestational diabetes screen 1-hour screen with 50g oral glucose loadon 01-28-2022 Glucose 1 Hr post 50 g glucose PO [Mass/Vol] 91 mg/dL 70-140 [facility] Work Phone: Absolute lymphocyte counton 01-26-2022 Lymphocytes Auto (Unsp spec) [#/Vol] 1.57 10*3/uL 0.83-4.51 [facility] Work Phone: Basophil percentageon 2021 Basophils/100 WBC (Bld) 0.3 % 0-1 [facility] Work Phone: Eosinophils/100 WBC (Bld) 0.9 % 0-5 [facility] Work Phone: Neutrophils (Bld) [#/Vol] 8.0 10*3/uL 2.0-7.7 [facility] Work Phone: Neutrophils/100 WBC (Bld) 77.1 % 47-70 [facility] Work Phone: WBC (Bld) [#/Vol] 10.3 10*3/uL 4.4-11.0 [facility] Work Phone: Blood erythrocytes count (nu mber/volume)on 01-26-2022 RBC (Bld) [#/Vol] 3.69 10*6/uL 4.2-5.4 [facility] Work Phone: Blood hemoglobin measurement (mass/volume)on 01-26-2022 Hemoglobin (Bld) [Mass/Vol] 11.3 g/dL 12.0-15.0 [facility] Work Phone: Blood lymphocytes/100 leukoc yteson 01-26-2022 Lymphocytes/100 WBC (Bld) 15.2 % 19-41 [facility] Work Phone: Blood monocytes/100 leukocyt eson 01-26-2022 Monocytes/100 WBC (Bld) 5.6 % 0-10 [facility] Work Phone: Blood platelet mean volumeon 01-26-2022 Platelet mean volume (Bld) [Entitic vol] 11.2 fL 6.2-12.0 [facility] Work Phone: Determination of erythrocyte mean corpuscular volume (MCV)on 01-26-2022 MCV (RBC) [Entitic vol] 89.2 fL 81-99 [facility] Work Phone: Hematocrit Auto (Bld) [Volum e fraction]on 01-26-2022 Hematocrit (Bld) [Volume fraction] 32.9 % 37-47 [facility] Work Phone: Laboratory - Chemistry and C hemistry - challengeon 01-26-2022 Glucose Ql (U) Negative [facility] Work Phone: Laboratory - Hematology and Cell countson 01-26-2022 Erythrocyte distribution width (RBC) [Entitic vol] 40.2 fL 35.1-43.9 [facility] Work Phone: Erythrocyte distribution width (RBC) [Ratio] 12.4 % 11.6-14.6 [facility] Work Phone: Immature granulocytes/100 WBC (Bld) 0.900 % 0.0-0.9 [facility] Work Phone: Comment on above: IG% - Immature Granu locytes (promyelocytes, myelocytes and metamyelocytes) > 1% indicates that a LEFT SHIFT is Present. MCH (RBC) [Entitic mass] 30.6 pg 27.0-32.0 [facility] Work Phone: Nucleated RBC/100 WBC (Bld) [Ratio] 0 % 0-5 [facility] Work Phone: Laboratory - Urinalysison Protein Ql (U) Negative [facility] Work Phone: MCHC Auto (RBC) [Mass/Vol]on 01-26-2022 MCHC (RBC) [Mass/Vol] 34.3 g/dL 32-36 [facility] Work Phone: Platelets bldon 01-26-2022 Platelets (Bld) [#/Vol] 171 10*3/uL 150-450 [facility] Work Phone: Laboratory - Chemistry and C hemistry - challengeon 12-24-2021 Glucose Ql (U) Negative [facility] Work Phone: Laboratory - Urinalysison Protein Ql (U) Negative [facility] Work Phone: Laboratory - Chemistry and C hemistry - challengeon 11-26-2021 Glucose Ql (U) Negative [facility] Work Phone: Laboratory - Urinalysison Protein Ql (U) Negative [facility] Work Phone: Laboratory - Chemistry and C hemistry - challengeon 10-29-2021 Glucose Ql (U) Negative [facility] Work Phone: Laboratory - Urinalysison Protein Ql (U) Negative [facility] Work Phone: Culture, urineon 10-01-2021 Bacteria identified Cx Nom (U) Positive [facility] Work Phone: Laboratory - Drug toxicology on 10-01-2021 Amphetamines Ql (U) Negative <1000 ng/mL [facility] Work Phone: Benzodiazepines Ql (U) Negative < 200 ng/mL [facility] Work Phone: Cannabinoids Screen Ql (U) Negative < 50 ng/mL [facility] Work Phone: Cocaine Ql (U) Negative < 300 ng/mL [facility] Work Phone: Opiates Ql (U) Negative < 300 ng/mL [facility] Work Phone: No Panel Informationon 10-01 Urine Barbiturates Screen Negative < 200 ng/mL [facility] Work Phone: Urine Drug Screen Comment [facility] Work Phone: Comment on above: [...] Methadone Screen Negative < 300 ng/mL [facility] Work Phone: Urine Methamphetamine-MDMA Screen Negative < 500 ng/mL [facility] Work Phone: Urine phencyclidine (PCP) de tectionon 10-01-2021 Phencyclidine Ql (U) Negative < 25 ng/mL [facility] Work Phone: Absolute lymphocyte counton 09-16-2021 Lymphocytes Auto (Unsp spec) [#/Vol] 1.15 10*3/uL 0.83-4.51 [facility] Work Phone: Basophil percentageon 2021 Basophils/100 WBC (Bld) 0.2 % 0-1 [facility] Work Phone: Eosinophils/100 WBC (Bld) 0.3 % 0-5 [facility] Work Phone: Neutrophils (Bld) [#/Vol] 7.0 10*3/uL 2.0-7.7 [facility] Work Phone: Neutrophils/100 WBC (Bld) 81.1 % 47-70 [facility] Work Phone: WBC (Bld) [#/Vol] 8.7 10*3/uL 4.4-11.0 [facility] Work Phone: Blood erythrocytes count (nu mber/volume)on 09-16-2021 RBC (Bld) [#/Vol] 4.14 10*6/uL 4.2-5.4 [facility] Work Phone: Blood hemoglobin measurement (mass/volume)on 09-16-2021 Hemoglobin (Bld) [Mass/Vol] 13.2 g/dL 12.0-15.0 [facility] Work Phone: Blood lymphocytes/100 leukoc yteson 09-16-2021 Lymphocytes/100 WBC (Bld) 13.2 % 19-41 [facility] Work Phone: Blood monocytes/100 leukocyt eson 09-16-2021 Monocytes/100 WBC (Bld) 4.6 % 0-10 [facility] Work Phone: Blood platelet mean volumeon 09-16-2021 Platelet mean volume (Bld) [Entitic vol] 11.1 fL 6.2-12.0 [facility] Work Phone: Chlamydia trachomatis rRNA d etection by probe and target amplification methodon 09-16-2021 C. trachomatis rRNA SOFIA+probe Ql (Unsp spec) Negative Negative [facility] Work Phone: Culture, urineon 09-16-2021 Bacteria identified Cx Nom (U) Presumptive Lactobacillus sp. [facility] Work Phone: Determination of erythrocyte mean corpuscular volume (MCV)on 09-16-2021 MCV (RBC) [Entitic vol] 87.9 fL 81-99 [facility] Work Phone: HIV 1 and HIV-2 antibody ass ay with HIV-1 p24 antigen detectionon 09-16-2021 HIV 1+2 Ab+HIV1 p24 Ag IA Ql Non-Reactive Nonreactive [facility] Work Phone: Hematocrit Auto (Bld) [Volum e fraction]on 09-16-2021 Hematocrit (Bld) [Volume fraction] 36.4 % 37-47 [facility] Work Phone: Laboratory - Drug toxicology on 09-16-2021 Amphetamines Ql (U) Negative [facility] Work Phone: Benzodiazepines Ql (U) Negative [facility] Work Phone: Cannabinoids Screen Ql (U) Negative [facility] Work Phone: Cocaine Ql (U) Negative [facility] Work Phone: Opiates Ql (U) Positive [facility] Work Phone: Laboratory - Hematology and Cell countson 09-16-2021 Erythrocyte distribution width (RBC) [Entitic vol] 38.4 fL 35.1-43.9 [facility] Work Phone: Erythrocyte distribution width (RBC) [Ratio] 12.0 % 11.6-14.6 [facility] Work Phone: Immature granulocytes/100 WBC (Bld) 0.600 % 0.0-0.9 [facility] Work Phone: Comment on above: IG% - Immature Granu locytes (promyelocytes, myelocytes and metamyelocytes) > 1% indicates that a LEFT SHIFT is Present. MCH (RBC) [Entitic mass] 31.9 pg 27.0-32.0 [facility] Work Phone: Nucleated RBC/100 WBC (Bld) [Ratio] 0 % 0-5 [facility] Work Phone: Laboratory - Microbiology an d Antimicrobial susceptibilityon 09-16-2021 N. gonorrhoeae DNA SOFIA+probe Ql (Unsp spec) Negative Negative [facility] Work Phone: Comment on above: Performed at: =[address] [place] [id number] Director: Kimberly Campbell MD, Phone: [phone] MCHC Auto (RBC) [Mass/Vol]on 09-16-2021 MCHC (RBC) [Mass/Vol] 36.3 g/dL 32-36 [facility] Work Phone: No Panel Informationon 09-16 Urine Barbiturates Screen Negative [facility] Work Phone: Urine Drug Screen Comment [facility] Work Phone: Comment on above: [...] USE TESTMNEMONIC: [facility] Urine Methadone Screen Negative [facility] Work Phone: Urine Methamphetamine-MDMA Screen Negative [facility] Work Phone: Hepatitis B Surface Antigen Non-Reactive Nonreactive [facility] Work Phone: Hepatitis C Antibody Non-Reactive Nonreactive [facility] Work Phone: Comment on above: Non Reactive: < 0.8 Equivocal: >/= 0.8 to < 1.0 Reactive: >/= 1.0The CDC recommends that a reactive/equivocal HCV antibody result be followed up by the HCV Nucleic Acid Amplificationtest (799139) Rubella IgG Antibody Reactive Nonreactive [facility] Work Phone: Comment on above: Antibody Results Int erpretation of Immune Status Non Reactive Presumed Non-Immune Equivocal Equivocal Reactive Presumed Immune Platelets bldon 09-16-2021 Platelets (Bld) [#/Vol] 229 10*3/uL 150-450 [facility] Work Phone: Serum Treponema species anti body detectionon 09-16-2021 Treponema sp Ab Ql (S) Non-Reactive [facility] Work Phone: Urine phencyclidine (PCP) de tectionon 09-16-2021 Phencyclidine Ql (U) Negative [facility] Work Phone: Culture, urineon 09-09-2021 Bacteria identified Cx Nom (U) Positive [facility] Work Phone: Laboratory - Chemistry and C hemistry - challengeon 09-09-2021 Bilirubin Ql (U) Negative [facility] Work Phone: Glucose Ql (U) Negative [facility] Work Phone: Ketones Ql (U) Negative [facility] Work Phone: Specific gravity (U) [Rel density] 1.005 [facility] Work Phone: Urobilinogen (U) [Mass/Vol] Negative [facility] Work Phone: Laboratory - Hematology and Cell countson 09-09-2021 Hemoglobin Ql (U) Trace [facility] Work Phone: Laboratory - Specimen inform ationon 09-09-2021 Clarity (U) Hazy [facility] Work Phone: Color (U) Straw [facility] Work Phone: Laboratory - Urinalysison Nitrite Ql (U) Negative [facility] Work Phone: Protein Ql (U) Negative [facility] Work Phone: No Panel Informationon 09-09 Urine Leukocytes Positive [facility] Work Phone: Serum or plasma choriogonado tropin detectionon 09-09-2021 HCG ( test) Ql 722113 mIU/mL <4 [facility] Work Phone: Comment on above: hCG levels with Gest ational AgeGestational Age hCG mIU/mL (IU/L)0.2 - 1 week 5 - 501-2 weeks 50 - 5002-3 weeks 100 - 29900-2 weeks 500 - 774368-6 weeks 1000 - 622957-0 weeks 17855 - 100,0006-8 weeks 20978 - 200,0002-3 months 81926 - 100,000 Microbiology: Culture, Genit al Comprehensive 07-03-2017 CUV . Invalid Interpretation Code [facility] Microbiology: (P) Culture, G enital Comprehensive 07-02-2017 CUV . Invalid Interpretation Code [facility] Office Visit: Annualon 06-30 Documentation of current medications (procedure) Done Invalid Interpretation Code [facility] Fall risk assessment No Invalid Interpretation Code [facility] Tobacco smoking status NHIS Never Invalid Interpretation Code [facility] Tobacco use CPHS Never smoker Invalid Interpretation Code [facility] URINE MENDY CULTURE-IDENTIFICA [place] ([id number])Ordered By: Hiv/Aids Care Nurse on 12-13-2016 Bacteria identified Cx Nom (U) Escherichia coli Abnormal [facility] Work Phone: Comment on above: Greater than 100,000 colony forming units per mL PATIENT NOT FASTINGP ERFORMED BY: HARLEEN [facility] [id number] [facility] [id number] Information: SRC:FLASH Bacteria identified Cx Nom (U) Final report Abnormal [facility] Work Phone: Comment on above: PATIENT NOT FASTINGP ERFORMED BY: [facility] [id number] [facility] [id number] Information: SRC:UC Other Antibiotic [Susc] MIHEAD Normal [...] PATIENT NOT FASTINGP ERFORMED BY: HARLEEN [facility] [id number] [facility] [id number] Information: SRC:FLASH Urinalysis, Office ([id number])on 12-13-2016 Bilirubin Ql (U) Negative Normal Comprehe [...] Phone: Ketones Ql (U) Negative Normal [facility] Work Phone: Ketones Ql (U) [...] by Cyto stain Normal Invalid Interpretation Code [facility] MENDY CULTURE-OTHER ([id number])Ord ered By: Hiv/Aids Care Nurse on 03-11-2016 Bacteria identified Respiratory culture Nom (Unsp spec) Final report Normal [facility] Work Phone: Comment on above: PATIENT NOT FASTINGP ERFORMED BY: HARLEEN [facility] [id number] [address] RoadDublin [place] [id number] Information: SRC:ROSALBA [id number] Bacteria identified Respiratory culture Nom (Unsp spec) RRF Normal [facility] Work Phone: Comment on above: Routine respiratory beverly PATIENT NOT FASTINGP ERFORMED BY: CB [facility] [id number] [address] RoadDublin [place] [id number] Information: SRC:THRT [id number] HEPATIC FUNCTION PANEL ([id number])Ordered By: Hiv/Aids Care Nurse on 01-05-2016 Albumin [Mass/Vol] 4.7 g/dL Normal 3.5-5.5 [facility] [place] [facility] Internal Medicine Work Phone: Comment on above: 1 month; PATIENT NOT FASTINGPERFORMED BY: CB [facility] Svbxyg4161 Mauro RoadDublin [place] [id number] Information: [id number] ALP [Catalytic activity/Vol] 39 [iU]/L Normal 39-117 [facility] Work Phone: Comment on above: 1 month; PATIENT NOT FASTINGPERFORMED BY: CB [facility] Hjdzfi4793 Mauro RoadDublin [place] [id number] Information: [id number] ALP [Catalytic activity/Vol] 39 U/L Normal 39-117 [facility]; [facility] Work Phone: Comment on above: 1 month; PATIENT NOT FASTINGPERFORMED BY: CB [facility] Tfhjmv9351 Mauro RoadDublin [place] [id number] Information: [id number] ALT [Catalytic activity/Vol] 19 [iU]/L Normal 0-32 [facility] Work Phone: Comment on above: 1 month; PATIENT NOT FASTINGPERFORMED BY: CB [facility] Jftlzj6147 Mauro RoadDublin [place] [id number] Information: [id number],[id number] ALT [Catalytic activity/Vol] 19 U/L Normal 0-32 [facility]; [facility] Work Phone: Comment on above: 1 month; PATIENT NOT FASTINGPERFORMED BY: CB [facility] Ebwpoq8888 [address] [facility]bl[facility] [place] [id number] Information: [id number] AST [Catalytic activity/Vol] 19 [iU]/L Normal 0-40 [facility] Work Phone: Comment on above: 1 month; PATIENT NOT FASTINGPERFORMED BY: CB [facility] Vzdabu5707 Mauro RoadErlanger Western Carolina Hospitalin [place] [id number] Information: [id number],[id number] AST [Catalytic activity/Vol] 19 U/L Normal 0-40 [facility]; [facility] Work Phone: Comment on above: 1 month; PATIENT NOT FASTINGPERFORMED BY: CB [facility] Eicpca8703 [address] [facility] [id number] Information: 475644,[id number] Bilirubin [Mass/Vol] 0.7 mg/dL Normal 0.0-1.2 [facility] Internal Medicine Work Phone: Comment on above: 1 month; PATIENT NOT FASTINGPERFORMED BY: CB [facility] Edhguc3561 [address] [facility]in [place] [id number] Information: 249279,[id number] Bilirubin.direct [Mass/Vol] 0.20 mg/dL Normal 0.00-0.40 [facility] Internal Medicine Work Phone: Comment on above: 1 month; PATIENT NOT FASTINGPERFORMED BY: CB [facility] Dodwxw4763 [address] [facility]in [place] [id number] Information: [id number] Protein [Mass/Vol] 6.6 g/dL Normal 6.0-8.[address] [facility] Internal Medicine Work Phone: Comment on above: 1 month; PATIENT NOT FASTINGPERFORMED BY: CB [facility] Tambcr8580 [address]uro RoadErlanger Western [facility] Hospitalin [place] [id number] Information: [id number] CBC WITH MANUAL DIFF (89495) Ordered By: Hiv/Aids Care Nurse on 12-04-2015 Basophils (Bld) [#/Vol] 0.0 {x10E3/uL} Normal 0.0-0.2 [facility] Work Phone: Comment on above: PATIENT WAS FASTINGP ERFORMED BY: [address] [id number] Information: [id number],[id number] Basophils (Bld) [#/Vol] 0.0 10*3/uL Normal 0.0-0.2 [facility]; [facility] Work Phone: Comment on above: PATIENT WAS FASTINGP ERFORMED BY: [address] [id number] Information: 028853,F36174 Basophils/100 WBC (Bld) 0 % Normal [facility] Work Phone: Comment on above: PATIENT WAS FASTINGP ERFORMED BY: [address] [id number] Information: 122998,[id number] Eosinophils (Bld) [#/Vol] 0.1 {x10E3/uL} Normal 0.0-0.4 [facility] Work Phone: Comment on above: PATIENT WAS FASTINGP ERFORMED BY: [address] [id number] Information: 508020,[id number] Eosinophils (Bld) [#/Vol] 0.1 10*3/uL Normal 0.0-0.4 [facility]; [facility] Work Phone: Comment on above: PATIENT WAS FASTINGP ERFORMED BY: [address] [id number] Information: 171124,A48695 Eosinophils/100 WBC (Bld) 2 % Normal [facility] Work Phone: Comment on above: PATIENT WAS FASTINGP ERFORMED BY: [address]Dublin [place] [id number] Information: 621360,W36835 Erythrocyte distribution width (RBC) [Ratio] 13.3 % Normal 12.3-15.4 [facility] Work Phone: Comment on above: PATIENT WAS FASTINGP ERFORMED BY: [address] [id number] Information: 243780,[id number] Hematocrit (Bld) [Volume fraction] 41.6 % Normal 34.0-46.6 [facility] Work Phone: Comment on above: PATIENT WAS FASTINGP ERFORMED BY: [address] [id number] Information: 435675,D21071 Hemoglobin (Bld) [Mass/Vol] 14.6 g/dL Normal 11.1-15.9 [facility] Work Phone: Comment on above: PATIENT WAS FASTINGP ERFORMED BY: [address] [id number] Information: 798334,[id number] Immature granulocytes (Bld) [#/Vol] 0.0 {x10E3/uL} Normal 0.0-0.1 [facility] Work Phone: Comment on above: PATIENT WAS FASTINGP ERFORMED BY: [place] 0112870 [facility] [id number] Information: 600250,[id number] Immature granulocytes (Bld) [#/Vol] 0.0 10*3/uL Normal 0.0-0.1 [facility]; [facility] Work Phone: Comment on above: PATIENT WAS FASTINGP ERFORMED BY: [address] [id number] Information: 971431,[id number] Immature granulocytes/100 WBC (Bld) 0 % Normal [facility] Work Phone: Comment on above: PATIENT WAS FASTINGP ERFORMED BY: [place] 0112870 [facility] [id number] Information: 287149,[id number] Lymphocytes (Bld) [#/Vol] 1.4 {x10E3/uL} Normal 0.7-3.1 [facility] Work Phone: Comment on above: PATIENT WAS FASTINGP ERFORMED BY: [address] [id number] Information: 162458,[id number] Lymphocytes (Bld) [#/Vol] 1.4 10*3/uL Normal 0.7-3.1 [facility]; [facility] Work Phone: Comment on above: PATIENT WAS FASTINGP ERFORMED BY: [address] [id number] Information: 448013,[id number] Lymphocytes/100 WBC (Bld) 25 % Normal [facility] Work Phone: Comment on above: PATIENT WAS FASTINGP ERFORMED BY: [address] [id number] Information: 604909,[id number] MCH (RBC) [Entitic mass] 31.2 pg Normal 26.6-33.0 [facility] Internal Medicine Work Phone: Comment on above: PATIENT WAS FASTINGP ERFORMED BY: [address] [id number] Information: 134583,[id number] MCHC (RBC) [Mass/Vol] 35.1 g/dL Normal 31.5-35.7 [facility] Internal Medicine Work Phone: Comment on above: PATIENT WAS FASTINGP ERFORMED BY: [address] [id number] Information: 173804,S39022 MCV (RBC) [Entitic vol] 89 fL Normal 79-97 [facility] Work Phone: Comment on above: PATIENT WAS FASTINGP ERFORMED BY: [address]ublin [place] [id number] Information: [id number],Z44782 Monocytes (Bld) [#/Vol] 0.2 {x10E3/uL} Normal 0.1-0.9 [facility] Work Phone: Comment on above: PATIENT WAS FASTINGP ERFORMED BY: [facility] Einxrw659[address] [id number] Information: [id number],[id number] Monocytes (Bld) [#/Vol] 0.2 10*3/uL Normal 0.1-0.9 [facility]; [facility] Work Phone: Comment on above: PATIENT WAS FASTINGP ERFORMED BY: HARLEEN Dayday Tprkqp4[address] [id number] Information: 373132,[id number] Monocytes/100 WBC (Bld) 4 % Normal [facility] Work Phone: Comment on above: PATIENT WAS FASTINGP ERFORMED BY: HARLEEN [facility] Gbxouv701[address] [id number] Information: 071410,[id number] Neutrophils (Bld) [#/Vol] 3.8 {x10E3/uL} Normal 1.4-7.0 [facility] Work Phone: Comment on above: PATIENT WAS FASTINGP ERFORMED BY: HARLEEN [facility] Yrjuyk0134 [facility] [id number] Information: 870616,C86994 Neutrophils (Bld) [#/Vol] 3.8 10*3/uL Normal 1.4-7.0 [facility]; [facility] Work Phone: Comment on above: PATIENT WAS FASTINGP ERFORMED BY: HARLEEN [facility] Batjeh0265 [facility] [id number] Information: 696409,[id number] Neutrophils/100 WBC (Bld) 69 % Normal [facility] Work Phone: Comment on above: PATIENT WAS FASTINGP ERFORMED BY: CB [facility]6370 [facility] [id number] Information: 097070,G98875 Platelets (Bld) [#/Vol] 227 {x10E3/uL} Normal 150-379 [facility] Work Phone: Comment on above: PATIENT WAS FASTINGP ERFORMED BY: Dayday Qnpewf1998 [facility] [id number] Information: 915866,[id number] Platelets (Bld) [#/Vol] 227 10*3/uL Normal 150-379 [facility] Internal Medicine; [facility] Internal Medicine Work Phone: Comment on above: PATIENT WAS FASTINGP ERFORMED BY: Dayday Fllrhg[address] [id number] Information: 626346,[id number] RBC (Bld) [#/Vol] 4.68 {x10E6/uL} Normal 3.77-5.28 [facility] Internal Medicine Work Phone: Comment on above: PATIENT WAS FASTINGP ERFORMED BY: HARLEEN [facility]uF[facility] Vjkwry7582 [facility] [id number] Information: 675854,W32198 RBC (Bld) [#/Vol] 4.68 10*6/uL Normal 3.77-5.28 [facility] Internal Medicine; [facility] Internal Medicine Work Phone: Comment on above: PATIENT WAS FASTINGP ERFORMED BY: [facility] Enmayw6982 [facility] [id number] Information: 695767,[id number] WBC (Bld) [#/Vol] 5.5 {x10E3/uL} Normal 3.4-10.8 [facility] Internal Medicine Work Phone: Comment on above: PATIENT WAS FASTINGP ERFORMED BY: [facility] Ppkqfq8104 [facility] [id number] Information: 043356,G73007 WBC (Bld) [#/Vol] 5.5 10*3/uL Normal 3.4-10.[address] [facility] Internal Medicine; [facility] Work Phone: Comment on above: PATIENT WAS FASTINGP ERFORMED BY: HARLEEN Colleen Iverson6370 [facility] [id number] Information: 941248,T18956 Lipid Panel (91626)Ordered B y: Hiv/Aids Care Nurse on 12-04-2015 Cholesterol [Mass/Vol] 171 mg/dL Normal 100-199 [facility] Internal Medicine Work Phone: Comment on above: PATIENT WAS FASTINGP ERFORMED BY: HARLEEN Daydayodilia Nvpuvi1740 [address] aVinci MediaErlanger Western Carolina Hospitalin [place] [id number] Cholesterol in HDL [Mass/Vol] 68 mg/dL Normal [facility] Work Phone: Comment on above: According to ATP-III Guidelines, HDL-C >59 mg/dL is considered anegative risk factor for CHD. PATIENT WAS FASTINGP ERFORMED BY: HARLEEN Daydayodilia Zazskf0403 [address] aVinci MediaCape [facility] [id number] Cholesterol in LDL [Mass/Vol] 86 mg/dL Normal 0-99 [facility] Work Phone: Comment on above: PATIENT WAS FASTINGP ERFORMED BY: HARLEEN Daydayodilia Dmhdri2436 [address] aVinci MediaCape Fear Valley Medical Center [id number] Cholesterol in LDL/Cholesterol in HDL [Mass ratio] 1.3 {ratio_units} Normal 0.0-3.2 [facility] Work Phone: Comment on above: LDL/HDL Ratio Men Wo men 1/2 Avg.Risk 1.0 1.5 Avg.Risk 3.6 3.2 2X Avg.Risk 6.2 5.0 3X Avg.Risk 8.0 6.1 PATIENT WAS FASTINGP ERFORMED BY: HARLEEN Daydayodilia Rlabkz3283 [address] aVinci MediaCape Fear Valley Medical Center [id number] Cholesterol in VLDL [Mass/Vol] 17 mg/dL Normal 5-40 [facility] Work Phone: Comment on above: PATIENT WAS FASTINGP ERFORMED BY: HARLEEN LabHamodilia Pogspu9733 [address] aVinci MediaDiana [place] [id number] Triglyceride [Mass/Vol] 84 mg/dL Normal 0-149 [facility] Work Phone: Comment on above: PATIENT WAS FASTINGP ERFORMED BY: HARLEEN [facility] Ybjzit0856 [address] RoadDublin [place] [id number] Metabolic Panel, Comprehensi ve (93845)Ordered By: Hiv/Aids Care Nurse on 12-04-2015 Albumin [Mass/Vol] 4.8 g/dL Normal 3.5-5.[address] [facility] Internal Medicine Work Phone: Comment on above: PATIENT WAS FASTINGP ERFORMED BY: HARLEEN [facility] Rdmzhg8244 [address] RoadDublin [place] [id number] Albumin/Globulin [Mass ratio] 2.1 {ratio} Normal 1.1-2.5 [facility] Work Phone: Comment on above: PATIENT WAS FASTINGP ERFORMED BY: HARLEEN [facility] Salheb5774 Mauro RoadDublin [place] [id number] ALP [Catalytic activity/Vol] 38 [iU]/L Abnormal 39-117 [facility] Work Phone: Comment on above: PATIENT WAS FASTINGP ERFORMED BY: HARLEEN [facility] Rrlixn9143 [address] RoadDublin [place] [id number] ALP [Catalytic activity/Vol] 38 U/L Abnormal 39-117 [facility]; [facility] Work Phone: Comment on above: PATIENT WAS FASTINGP ERFORMED BY: HARLEEN [facility] Pmirsq7086 Mauro RoadDublin [place] [id number] ALT [Catalytic activity/Vol] 28 [iU]/L Normal 0-32 [facility] Work Phone: Comment on above: PATIENT WAS FASTINGP ERFORMED BY: HARLEEN [facility] Xqidnv2616 [address] RoadDublin [place] [id number] ALT [Catalytic activity/Vol] 28 U/L Normal 0-32 [facility]; [facility] Work Phone: Comment on above: PATIENT WAS FASTINGP ERFORMED BY: HARLEEN [facility] Fcgnuq1828 [address] RoadDublin [place] [id number] AST [Catalytic activity/Vol] 58 [iU]/L Abnormal 0-40 [facility] Work Phone: Comment on above: PATIENT WAS FASTINGP ERFORMED BY: CB [facility] Dxizfi4153 [address] RoadDublin [place] [id number] AST [Catalytic activity/Vol] 58 U/L Abnormal 0-40 [facility]; [facility] Internal Medicine Work Phone: Comment on above: PATIENT WAS FASTINGP ERFORMED BY: CB [facility] Jsikiq8503 [address] RoadDublin [place] [id number] Bilirubin [Mass/Vol] 0.7 mg/dL Normal 0.0-1.2 [facility] Work Phone: Comment on above: PATIENT WAS FASTINGP ERFORMED BY: [facility] Nfhqdf7100 Ma[address] RoadDublin [place] [id number] Calcium [Mass/Vol] 9.2 mg/dL Normal 8.7-10.[address] [facility] Internal Medicine Work Phone: Comment on above: PATIENT WAS FASTINGP ERFORMED BY: [facility] Pifjmf6013 Ma[address] RoadDublin [place] [id number] Chloride [Moles/Vol] 101 mmol/L Normal 97-108 [facility] Internal Medicine Work Phone: Comment on above: PATIENT WAS FASTINGP ERFORMED BY: [facility] Pgtkdi1659 [address] RoadDublin [place] [id number] CO2 [Moles/Vol] 22 mmol/L Normal 18-29 [facility] Internal Medicine Work Phone: Comment on above: PATIENT WAS FASTINGP ERFORMED BY: [facility] Vokmcu1200 [address]uro RoadDublin [place] [id number] Creatinine [Mass/Vol] 0.83 mg/dL Normal 0.57-1.00 [facility] Internal Medicine Work Phone: Comment on above: PATIENT WAS FASTINGP ERFORMED BY: CB [facility] Brgdxn8368 Mauro RoadDublin [place] [id number] GFR/1.73 sq M predicted among blacks CKD-EPI (S/P/Bld) [Vol rate/Area] 109 mL/min/1.73 Normal [facility] Internal Medicine Work Phone: Comment on above: PATIENT WAS FASTINGP ERFORMED BY: HARLEEN [facility] Kqqsjv1402 Ma[address] RoadDublin [place] [id number] GFR/1.73 sq M predicted among non-blacks CKD-EPI (S/P/Bld) [Vol rate/Area] 95 mL/min/1.73 Normal [facility] Internal Medicine Work Phone: Comment on above: PATIENT WAS FASTINGP ERFORMED BY: HARLEEN [facility] Ugktws1413 Ma[address] Roadblin [place] [id number] Globulin (S) [Mass/Vol] 2.3 g/dL Normal 1.5-4.5 [facility] Internal Medicine Work Phone: Comment on above: PATIENT WAS FASTINGP ERFORMED BY: HARLEEN [facility] Xsrxej2663 Mauro RoadErlanger Western [facility] Hospitalin [place] [id number] Glucose [Mass/Vol] 85 mg/dL Normal 65-[address] [facility] Internal Medicine Work Phone: Comment on above: PATIENT WAS FASTINGP ERFORMED BY: HARLEEN LabFult[facility] Hospital Fpkdwz7054 [address] [facility] [place] [id number] Potassium [Moles/Vol] 4.3 mmol/L Normal 3.5-5.2 [facility] Internal Medicine Work Phone: Comment on above: PATIENT WAS FASTINGP ERFORMED BY: [facility] Jqzyqi9588 [address] [facility] Hospitalbl[facility] [place] [id number] Protein [Mass/Vol] 7.1 g/dL Normal 6.0-8.[address] [facility] Internal Medicine Work Phone: Comment on above: PATIENT WAS FASTINGP ERFORMED BY: [facility] Ghopyw3810 Mauro RoadDublin [place] [id number] Sodium [Moles/Vol] 140 mmol/L Normal 134-[address] [facility] Internal Medicine Work Phone: Comment on above: PATIENT WAS FASTINGP ERFORMED BY: HARLEEN [facility] Cnxyiv6714 Ma[address] RoadDublin [place] [id number] Urea nitrogen [Mass/Vol] 13 mg/dL Normal 6-20 [facility] Work Phone: Comment on above: PATIENT WAS FASTINGP ERFORMED BY: LabCoBayshore Community HospitalNpwgrz6934 [facility] [id number] Urea nitrogen/Creatinine [Mass ratio] 16 mg/mg Normal 8-20 [facility] Work Phone: Comment on above: PATIENT WAS FASTINGP ERFORMED BY: LabCoBayshore Community HospitalOlstvl5848 [facility] [id number] TSH (34464)Ordered By: TabSprinte m Lay Up Operator on 12-04-2015 TSH Qn 1.260 {uIU/mL} Normal 0.450-4.500 [facility] Internal Medicine Work Phone: Comment on above: PATIENT WAS FASTINGP ERFORMED BY: HARLEEN LabCoBayshore Community HospitalSfoqdy3027 [facility] [id number] Rapid Flu (81476 x 2)Ordered By: Aurora Galvin on 08-12-2015 FLUAV Ag IA Ql (Throat) neg a and b Normal [facility] Work Phone: Rapid Strep Test, Office ([phone])Ordered By: Aurora Galvin on 08-12-2015 S. pyogenes Ag EIA Ql (Throat) Negative Normal [facility]; [facility] Work Phone: S. pyogenes Ag IA Ql (Unsp spec) Negative Normal [facility] Work Phone: NuSwab Vaginitis Plus (STD W /O Herpes) (56090)Ordered By: Hiv/Aids Care Nurse on 10-24-2014 A. vaginae DNA SOFIA+probe Ql (Vag fld) Low - 0 Normal [facility] Internal Medicine Work Phone: Comment on above: PATIENT NOT FASTINGP ERFORMED BY: LabUtodilia TripathiXajxgiqtdg3335 [facility] [id number] Information: [id number] Bacterial vaginosis associated bacterium 2 DNA SOFIA+probe Ql (Vag fld) Low - 0 Normal [facility] Work Phone: Comment on above: PATIENT NOT FASTINGP ERFORMED BY: [address] [id number] Information: [id number] C. albicans DNA SOFIA+probe Ql (Vag fld) Negative Normal Comprehen [facility] Internal Medicine Work Phone: Comment on above: PATIENT NOT FASTINGP ERFORMED BY: [address] [id number] Information: [id number] C. albicans DNA SOFIA+probe Ql (Vag fld) Negative Normal Com[facility]hen [facility]; [facility] Work Phone: Comment on above: PATIENT NOT FASTINGP ERFORMED BY: [address] [id number] Information: U16175 C. glabrata DNA SOFIA+probe Ql (Vag fld) Negative Normal Comprehen [facility] Internal Medicine Work Phone: Comment on above: This test was develo ped and its performance characteristics determinedby Vive UniqueF[facility]on State Hospital. It has not been cleared or approved by the Food and DrugAdministration. The FDA has determined that such clearance orapproval is not necessary. PATIENT NOT FASTINGP ERFORMED BY: [address] [id number] Information: [id number] C. glabrata DNA SOFIA+probe Ql (Vag fld) Negative Normal Comprehen [facility] Internal Medicine; [facility] Work Phone: Comment on above: This test was develo ped and its performance characteristics determinedby [facility] UniqueF[facility]. It has not been cleared or approved by the Food and DrugAdministration. The FDA has determined that such clearance orapproval is not necessary. PATIENT NOT FASTINGP ERFORMED BY: [address] [id number] Information: [id number] C. trachomatis rRNA SOFIA+probe Ql (Unsp spec) Negative Normal [facility] Work Phone: Comment on above: PATIENT NOT FASTINGP ERFORMED BY: [address] [id number] Information: [id number] C. trachomatis rRNA SOFIA+probe Ql (Unsp spec) Negative Normal [facility]; [facility] Work Phone: Comment on above: PATIENT NOT FASTINGP ERFORMED BY: [address] [id number] Information: C59586 Megasphaera sp type 1 DNA SOFIA+probe Ql [...] was developed and its performance characteristics determinedby [facility]. It has not been cleared or approved by the Food and DrugAdministration. The FDA has determined that such clearance orapproval is not necessary. PATIENT NOT FASTINGP ERFORMED BY: [address] [id number] Information: P73771 N. gonorrhoeae rRNA SOFIA+probe Ql (Unsp spec) Negative Normal [facility] Work Phone: Comment on above: PATIENT NOT FASTINGP ERFORMED BY: [address] [id number] Information: B76915 N. gonorrhoeae rRNA SOFIA+probe Ql (Unsp spec) Negative Normal [facility]; [facility] Work Phone: Comment on above: PATIENT NOT FASTINGP ERFORMED BY: [address] [id number] Information: [id number] T. vaginalis rRNA SOFIA+probe Ql (Unsp spec) Negative Normal [facility] Work Phone: Comment on above: PATIENT NOT FASTINGP ERFORMED BY: [address] [id number] Information: E60959 T. vaginalis rRNA SOFIA+probe Ql (Unsp spec) Negative Normal [facility]; [facility] Work Phone: Comment on above: PATIENT NOT FASTINGP ERFORMED BY: Vive UniqueMer[facility]1447 [facility] [id number] Information: [id number] Rapid Strep Test, Office (44 392)Ordered By: Aurora Galvin on 05-13-2014 S. pyogenes Ag EIA Ql (Throat) Negative Normal [facility]; [facility] Work Phone: S. pyogenes Ag IA Ql (Unsp spec) Negative Normal [facility] Work Phone: Throat Culture (15843)Ordere d By: Hiv/Aids Care Nurse on 05-13-2014 Bacteria identified Respiratory culture Nom (Unsp spec) Final report Normal [facility] Work Phone: Comment on above: PATIENT NOT FASTINGP ERFORMED BY: LabCriticMania.comrp Rnxysl4845 Mauro RoadCape Fear Valley [facility] Center [id number] Information: SRC:ROSALBA [id number] Bacteria identified Respiratory culture Nom (Unsp spec) RRF Normal [facility] Work Phone: Comment on above: Routine respiratory beverly PATIENT NOT FASTINGP ERFORMED BY: LabCriticMania.comrp Ckrwjc4201 [facility] [id number] Information: SRC:ROSALBA D87102 LIPID PANEL (57113)Ordered B y: Hiv/Aids Care Nurse on 04-02-2014 Cholesterol [Mass/Vol] 191 mg/dL Normal 100-199 [facility]emisc[facility] systemsehensive Internal Medicine Work Phone: Comment on above: PATIENT WAS FASTINGP ERFORMED BY: [facility] Gybcre1540 [address] aVinci MediaErlanger Western [facility] Hospitalin [place] [id number] Cholesterol in HDL [Mass/Vol] 66 mg/dL Normal [facility] Work Phone: Comment on above: According to ATP-III Guidelines, HDL-C >59 mg/dL is considered anegative risk factor for CHD. PATIENT WAS FASTINGP ERFORMED BY: LabCriticMania.comrp Gdddmr7024 [address] aVinci MediaErlanger Western [facility] Hospitalin [place] [id number] Cholesterol in LDL [Mass/Vol] 99 mg/dL Normal 0-99 [facility] Work Phone: Comment on above: PATIENT WAS FASTINGP ERFORMED BY: HALREEN Colleen Iverson6370 [facility] [id number] Cholesterol in LDL/Cholesterol in HDL [Mass ratio] 1.5 {ratio_units} Normal 0.0-3.2 [facility] Work Phone: Comment on above: PATIENT WAS FASTINGP ERFORMED BY: HARLEEN Daydayodilia BobMuiopf2233 [facility] [id number] Cholesterol in VLDL [Mass/Vol] 26 mg/dL Normal 5-40 [facility] Work Phone: Comment on above: PATIENT WAS FASTINGP ERFORMED BY: HARLEEN Daydayodilia Yghjld8236 [facility] [id number] Triglyceride [Mass/Vol] 132 mg/dL Normal 0-149 [facility] Work Phone: Comment on above: PATIENT WAS FASTINGP ERFORMED BY: HARLEEN Dayday Hfjtly4605 [facility] [id number] METABOLIC PANEL, COMPREHENSI VE (52913)Ordered By: Hiv/Aids Care Nurse on 04-02-2014 Albumin [Mass/Vol] 4.4 g/dL Normal 3.5-5.[address] [facility] Internal Medicine Work Phone: Comment on above: PATIENT WAS FASTINGP ERFORMED BY: [facility]EN [facility] Yqgirz6048 [facility] [id number] Information: [id number] Albumin/Globulin [Mass ratio] 1.9 {ratio} Normal 1.1-2.5 [facility] Work Phone: Comment on above: PATIENT WAS FASTINGP ERFORMED BY: HARLEEN [facility] Jkljwl6913 [facility] [id number] Information: 118328,[id number] ALP [Catalytic activity/Vol] 54 [iU]/L Normal 39-117 [facility] Work Phone: Comment on above: PATIENT WAS FASTINGP ERFORMED BY: HARLEEN [facility] Tcccvd6165 [facility] [place] [id number] Information: [id number] ALP [Catalytic activity/Vol] 54 U/L Normal 39-117 [facility]; [facility] Work Phone: Comment on above: PATIENT WAS FASTINGP ERFORMED BY: [facility] Snfgdy6947 [facility] [place] [id number] Information: 115371,[id number] ALT [Catalytic activity/Vol] 21 [iU]/L Normal 0-32 [facility] Work Phone: Comment on above: PATIENT WAS FASTINGP ERFORMED BY: [facility] Lqwxnv9661 [facility] [place] [id number] Information: [id number] ALT [Catalytic activity/Vol] 21 U/L Normal 0-32 [facility]; [facility] Work Phone: Comment on above: PATIENT WAS FASTINGP ERFORMED BY: [facility] Xczgzr7978 [facility] [place] [id number] Information: 473816,[id number] AST [Catalytic activity/Vol] 18 [iU]/L Normal 0-40 [facility] Work Phone: Comment on above: PATIENT WAS FASTINGP ERFORMED BY: [facility] Pwicmn2582 [facility] [place] [id number] Information: 610794,[id number] AST [Catalytic activity/Vol] 18 U/L Normal 0-40 [facility]; [facility] Work Phone: Comment on above: PATIENT WAS FASTINGP ERFORMED BY: [facility] Ugkcxt6978 [facility] [place] [id number] Information: 295613,C50512 Bilirubin [Mass/Vol] 0.6 mg/dL Normal 0.0-1.2 [facility] Internal Medicine Work Phone: Comment on above: PATIENT WAS FASTINGP ERFORMED BY: [facility] Frvckx8212 [facility] [place] [id number] Information: 012524,Q81445 Calcium [Mass/Vol] 9.5 mg/dL Normal 8.7-10.[address] [facility] Internal Medicine Work Phone: Comment on above: PATIENT WAS FASTINGP ERFORMED BY: HARLEEN [facility] Mozejk2149 [facility] [id number] Information: [id number] Chloride [Moles/Vol] 99 mmol/L Normal 97-108 [facility] Work Phone: Comment on above: PATIENT WAS FASTINGP ERFORMED BY: HARLEEN [facility] Gyunot2654 [facility] [id number] Information: 825741,L11267 CO2 [Moles/Vol] 25 mmol/L Normal 18-29 [facility] Internal Medicine Work Phone: Comment on above: PATIENT WAS FASTINGP ERFORMED BY: HARLEEN [facility] Enuwtj6115 [facility] [id number] Information: 256348,[id number] Creatinine [Mass/Vol] 0.98 mg/dL Normal 0.57-1.00 [facility] Work Phone: Comment on above: PATIENT WAS FASTINGP ERFORMED BY: HARLEEN [facility] Qppdxx2122 [facility] [id number] Information: 643322,N38640 GFR/1.73 sq M predicted among blacks CKD-EPI (S/P/Bld) [Vol rate/Area] 91 mL/min/1.73 Normal [facility] Work Phone: Comment on above: PATIENT WAS FASTINGP ERFORMED BY: [facility] Qpkkig9008 [facility] [id number] Information: 410985,I01106 GFR/1.73 sq M predicted among non-blacks CKD-EPI (S/P/Bld) [Vol rate/Area] 79 mL/min/1.73 Normal [facility] Work Phone: Comment on above: PATIENT WAS FASTINGP ERFORMED BY: HARLEEN [facility] Yqodlx5621 [facility] [id number] Information: 854575,[id number] Globulin (S) [Mass/Vol] 2.3 g/dL Normal 1.5-4.5 [facility] Internal Medicine Work Phone: Comment on above: PATIENT WAS FASTINGP ERFORMED BY: [facility]6370 [facility] [id number] Information: [id number],[id number] Glucose [Mass/Vol] 78 mg/dL Normal 65-[address] [facility] Internal Medicine Work Phone: Comment on above: PATIENT WAS FASTINGP ERFORMED BY: [place] 0112870 [facility] [id number] Information: 199800,E35286 Potassium [Moles/Vol] 4.2 mmol/L Normal 3.5-5.2 [facility] Internal Medicine Work Phone: Comment on above: PATIENT WAS FASTINGP ERFORMED BY: [place] 0112870 [facility] [id number] Information: 908630,C89450 Protein [Mass/Vol] 6.7 g/dL Normal 6.0-8.[address] [facility] Internal Medicine Work Phone: Comment on above: PATIENT WAS FASTINGP ERFORMED BY: [place] 0112870 [facility] [id number] Information: 283389,[id number] Sodium [Moles/Vol] 141 mmol/L Normal 134-[address] [facility] Internal Medicine Work Phone: Comment on above: PATIENT WAS FASTINGP ERFORMED BY: [facility]6370 [facility] [id number] Information: 612602,X61458 Urea nitrogen [Mass/Vol] 11 mg/dL Normal 6-20 [facility] Internal Medicine Work Phone: Comment on above: PATIENT WAS FASTINGP ERFORMED BY: [facility] Durjoj4243 [facility] [id number] Information: 745711,[id number] Urea nitrogen/Creatinine [Mass ratio] 11 mg/mg Normal 8-20 [facility] Work Phone: Comment on above: PATIENT WAS FASTINGP ERFORMED BY: HARLEEN Dayday Iaqjxc0317 [facility] [id number] Information: 827082,[id number] Glucose (27113)Ordered By: S ystem Lay Up Operator on 05-23-2013 Glucose [Mass/Vol] 79 mg/dL Normal 65-[address] [facility] Internal Medicine Work Phone: Comment on above: PATIENT WAS FASTINGP ERFORMED BY: HARLEEN [address] [id number] LIPID PANEL (27724)Ordered B y: Hiv/Aids Care Nurse on 05-23-2013 Cholesterol [Mass/Vol] 162 mg/dL Normal 100-199 [facility] Internal Medicine Work Phone: Comment on above: PATIENT WAS FASTINGP ERFORMED BY: HARLEEN EliuNicholas [place] 7677370 [facility] [id number] Information: 538615,A87649 Cholesterol in HDL [Mass/Vol] 62 mg/dL Normal [facility] Work Phone: Comment on above: According to ATP-III Guidelines, HDL-C >59 mg/dL is considered anegative risk factor for CHD. PATIENT WAS FASTINGP ERFORMED BY: HARLEEN [facility]6370 [facility] [id number] Information: 719034,T02433 Cholesterol in LDL [Mass/Vol] 90 mg/dL Normal 0-99 [facility] Work Phone: Comment on above: PATIENT WAS FASTINGP ERFORMED BY: LabNicholas [place] 7677370 [facility] [id number] Information: 290394,I40399 Cholesterol in LDL/Cholesterol in HDL [Mass ratio] 1.5 {ratio_units} Normal 0.0-3.2 [facility] Work Phone: Comment on above: PATIENT WAS FASTINGP ERFORMED BY: HARLEEN [facility] Upjzwv1072 [facility] [id number] Information: 398042,L42378 Cholesterol in VLDL [Mass/Vol] 10 mg/dL Normal 5-40 [facility] Work Phone: Comment on above: PATIENT WAS FASTINGP ERFORMED BY: Novaliq [facility] Hcctnt7513 [facility] [id number] Information: 897871,B91668 Triglyceride [Mass/Vol] 48 mg/dL Normal 0-149 [facility] Work Phone: Comment on above: PATIENT WAS FASTINGP ERFORMED BY: Novaliq [facility] Aoyoux5158 [facility] [id number] Information: 459051,H45440 MENDY CULTURE-OTHER (73472)Ord ered By: Hiv/Aids Care Nurse on 09-03-2010 Bacteria identified Respiratory culture Nom (Unsp spec) Final report Normal [facility] Work Phone: Comment on above: PERFORMED BY: [employer] Hhsvey7577 [facility] [id number] Information: SRC: THROAT Bacteria identified Respiratory culture [...] Diagnostic Microbiology andInfectious Disease, January,.) PERFORMED BY: [employer] Ctafzp2676 [facility] [id number] Information: SRC: THROAT Rapid Strep Test, Office (50 531)Ordered By: No Ariza on 09-03-2010 S. pyogenes Ag EIA Ql (Throat) Negative Normal [facility]; [facility] Work Phone: S. pyogenes Ag IA Ql (Unsp spec) Negative Normal [facility] Work Phone: CBC WITH MANUAL DIFF (17578) Ordered By: Hiv/Aids Care Nurse on 06-07-2010 Basophils (Bld) [#/Vol] 0.0 {x10E3/uL} Normal 0.0-0.2 [facility] Work Phone: Comment on above: PATIENT NOT FASTINGP ERFORMED BY: [address] [id number] Information: 885844,D74746 Basophils (Bld) [#/Vol] 0.0 10*3/uL Normal 0.0-0.2 [facility]; [facility] Work Phone: Comment on above: PATIENT NOT FASTINGP ERFORMED BY: Lab[address] [id number] Information: 131893,N91907 Basophils/100 WBC (Bld) 0 % Normal 0-3 [facility] Work Phone: Comment on above: PATIENT NOT FASTINGP ERFORMED BY: [address] [id number] Information: 763476,Z06267 Eosinophils (Bld) [#/Vol] 0.1 {x10E3/uL} Normal 0.0-0.4 [facility] Work Phone: Comment on above: PATIENT NOT FASTINGP ERFORMED BY: Lab[address] [id number] Information: 076567,[id number] Eosinophils (Bld) [#/Vol] 0.1 10*3/uL Normal 0.0-0.4 [facility]; [facility] Work Phone: Comment on above: PATIENT NOT FASTINGP ERFORMED BY: LabNicholas [place] 7677370 [facility] [id number] Information: 107632,O19677 Eosinophils/100 WBC (Bld) 1 % Normal 0-7 [facility] Work Phone: Comment on above: PATIENT NOT FASTINGP ERFORMED BY: HARLEEN [facility] Hospital6370 [facility] [id number] Information: 364357,L50991 Erythrocyte distribution width (RBC) [Ratio] 14.1 % Normal 11.7-15.0 [facility] Work Phone: Comment on above: PATIENT NOT FASTINGP ERFORMED BY: [address] [id number] Information: 869362,T23457 Hematocrit (Bld) [Volume fraction] 38.0 % Normal 34.0-44.0 [facility] Work Phone: Comment on above: PATIENT NOT FASTINGP ERFORMED BY: HARLEEN Naylor[address] [id number] Information: [id number] Hemoglobin (Bld) [Mass/Vol] 12.5 g/dL Normal 11.5-15.0 [facility] Work Phone: Comment on above: PATIENT NOT FASTINGP ERFORMED BY: [address] [id number] Information: 182242,R28174 Immature granulocytes (Bld) [#/Vol] 0.0 {x10E3/uL} Normal 0.0-0.1 [facility] Work Phone: Comment on above: PATIENT NOT FASTINGP ERFORMED BY: [place] 0112870 [facility] [id number] Information: 164728,[id number] Immature granulocytes (Bld) [#/Vol] 0.0 10*3/uL Normal 0.0-0.1 [facility]; [facility] Work Phone: Comment on above: PATIENT NOT FASTINGP ERFORMED BY: HARLEEN [place] 7546870 [facility] [id number] Information: [id number] Immature granulocytes/100 WBC (Bld) 0 % Normal 0-1 [facility] Work Phone: Comment on above: PATIENT NOT FASTINGP ERFORMED BY: HARLEEN Naylor Umxksv4281 [facility] [id number] Information: 869656,C60382 Lymphocytes (Bld) [#/Vol] 1.4 {x10E3/uL} Normal 0.7-4.5 [facility] Work Phone: Comment on above: PATIENT NOT FASTINGP ERFORMED BY: HARLEEN NaylorBailey [place] 8470370 [facility] [id number] Information: 508470,N29989 Lymphocytes (Bld) [#/Vol] 1.4 10*3/uL Normal 0.7-4.5 [facility]; [facility] Work Phone: Comment on above: PATIENT NOT FASTINGP ERFORMED BY: HARLEEN Naylor Tpotnp9885 [facility] [id number] Information: [id number] Lymphocytes/100 WBC (Bld) 24 % Normal 14-46 [facility] Work Phone: Comment on above: PATIENT NOT FASTINGP ERFORMED BY: HARLEEN Naylor Gbxoox1762 [facility] [id number] Information: 810185,H41279 MCH (RBC) [Entitic mass] 27.4 pg Normal 27.0-34.0 [facility] Internal Medicine Work Phone: Comment on above: PATIENT NOT FASTINGP ERFORMED BY: HARLEEN LabCoBayshore Community HospitalJqsnyj7010 [facility] [id number] Information: 972699,Y37342 MCHC (RBC) [Mass/Vol] 32.9 g/dL Normal 32.0-36.0 [facility] Internal Medicine Work Phone: Comment on above: PATIENT NOT FASTINGP ERFORMED BY: HARLEEN LabCoBayshore Community HospitalAtozcb2016 [facility] [id number] Information: 290224,[id number] MCV (RBC) [Entitic vol] 83 fL Normal 80-98 [facility] Work Phone: Comment on above: PATIENT NOT FASTINGP ERFORMED BY: HARLEEN LabCoodilia IversonRgvuxu6780 [facility] [id number] Information: 200622,[id number] Monocytes (Bld) [#/Vol] 0.4 {x10E3/uL} Normal 0.1-1.0 [facility] Work Phone: Comment on above: PATIENT NOT FASTINGP ERFORMED BY: CB [facility] Rtglwd9032 [facility] [id number] Information: 171535,[id number] Monocytes (Bld) [#/Vol] 0.4 10*3/uL Normal 0.1-1.0 [facility]; [facility] Work Phone: Comment on above: PATIENT NOT FASTINGP ERFORMED BY: HARLEEN [facility] Xbgpaz8844 [facility] [id number] Information: 530608,P43229 Monocytes/100 WBC (Bld) 6 % Normal 4-13 [facility] Work Phone: Comment on above: PATIENT NOT FASTINGP ERFORMED BY: CB [facility] Urdvgu9320 [facility] [id number] Information: 689877,G75552 Neutrophils (Bld) [#/Vol] 4.2 {x10E3/uL} Normal 1.8-7.8 [facility] Work Phone: Comment on above: PATIENT NOT FASTINGP ERFORMED BY: CB [facility] Qnimud5071 [facility] [id number] Information: 514514,H28988 Neutrophils (Bld) [#/Vol] 4.2 10*3/uL Normal 1.8-7.8 [facility]; [facility] Work Phone: Comment on above: PATIENT NOT FASTINGP ERFORMED BY: CB [facility] Bqqlrw3247 [facility] [id number] Information: 853790,Y53880 Neutrophils/100 WBC (Bld) 69 % Normal 40-74 [facility] Work Phone: Comment on above: PATIENT NOT FASTINGP ERFORMED BY: HARLEEN NowakCoodilia IversonRgjchg2882 [facility]Critical [facility] [id number] Information: 872701,H20140 Platelets (Bld) [#/Vol] 219 {x10E3/uL} Normal 140-415 [facility] Work Phone: Comment on above: PATIENT NOT FASTINGP ERFORMED BY: HARLEEN NowakCoodilia IversonEkkruq4086 [facility] [id number] Information: 089151,D78030 Platelets (Bld) [#/Vol] 219 10*3/uL Normal 140-415 [facility]; [facility] Work Phone: Comment on above: PATIENT NOT FASTINGP ERFORMED BY: HARLEEN Iverson6370 [facility] [id number] Information: 226674,C77690 RBC (Bld) [#/Vol] 4.56 {x10E6/uL} Normal 3.80-5.10 [facility] Internal Medicine Work Phone: Comment on above: PATIENT NOT FASTINGP ERFORMED BY: HARLEEN Iverson6370 [facility] [id number] Information: 988971,L10099 RBC (Bld) [#/Vol] 4.56 10*6/uL Normal 3.80-5.10 [facility] Internal Medicine; [facility] Work Phone: Comment on above: PATIENT NOT FASTINGP ERFORMED BY: HARLEEN [facility] Bmmrcz7448 [facility] [id number] Information: 536787,Q86521 WBC (Bld) [#/Vol] 6.1 {x10E3/uL} Normal 4.0-10.5 [facility] Internal Medicine Work Phone: Comment on above: PATIENT NOT FASTINGP ERFORMED BY: HARLEEN [facility] Fcfkdy9331 [facility] [id number] Information: 167450,Q71041 WBC (Bld) [#/Vol] 6.1 10*3/uL Normal 4.0-10.[address] [facility] Internal Medicine; [facility] Internal Medicine Work Phone: Comment on above: PATIENT NOT FASTINGP ERFORMED BY: HARLEEN [facility] Bmlnar2844 [address]uro RoadDublin [place] [id number] Information: 215641,[id number] METABOLIC PANEL, COMPREHENSI VE (98873)Ordered By: Hiv/Aids Care Nurse on 06-07-2010 Albumin [Mass/Vol] 4.4 g/dL Normal 3.5-5.[address] [facility] Internal Medicine Work Phone: Comment on above: PATIENT NOT FASTINGP ERFORMED BY: HARLEEN [facility] Tkjmou3867 [address] RoadDublin [place] [id number] Albumin/Globulin [Mass ratio] 2.0 {ratio} Normal 1.1-2.5 [facility] Work Phone: Comment on above: PATIENT NOT FASTINGP ERFORMED BY: CB [facility] Lxpkls2905 [address] RoadDublin [place] [id number] ALP [Catalytic activity/Vol] 52 [iU]/L Normal 25-150 [facility] Work Phone: Comment on above: PATIENT NOT FASTINGP ERFORMED BY: HARLEEN [facility] Kclnkr8617 [address] RoadDublin [place] [id number] ALP [Catalytic activity/Vol] 52 U/L Normal 25-150 [facility]; [facility] Work Phone: Comment on above: PATIENT NOT FASTINGP ERFORMED BY: CB [facility] Yicvnc7066 [address] RoadDublin [place] [id number] ALT [Catalytic activity/Vol] 10 [iU]/L Normal 0-40 [facility] Work Phone: Comment on above: PATIENT NOT FASTINGP ERFORMED BY: CB [facility] Xffoyq1122 [address] RoadDublin [place] [id number] ALT [Catalytic activity/Vol] 10 U/L Normal 0-40 [facility]; [facility] Work Phone: Comment on above: PATIENT NOT FASTINGP ERFORMED BY: CB [facility] Mzhnsx0962 [address] RoadDublin [place] [id number] AST [Catalytic activity/Vol] 15 [iU]/L Normal 0-40 [facility] Work Phone: Comment on above: PATIENT NOT FASTINGP ERFORMED BY: CB [facility] Kfflio7670 [address] RoadDublin [place] [id number] AST [Catalytic activity/Vol] 15 U/L Normal 0-40 [facility]; [facility] Work Phone: Comment on above: PATIENT NOT FASTINGP ERFORMED BY: CB [facility] Iyltdd9938 [address] RoadDublin [place] [id number] Bilirubin [Mass/Vol] 0.4 mg/dL Normal 0.0-1.2 [facility] Work Phone: Comment on above: PATIENT NOT FASTINGP ERFORMED BY: HARLEEN [facility] Mmpczy3463 [address] RoadDublin [place] [id number] Calcium [Mass/Vol] 9.0 mg/dL Normal 8.7-10.[address] [facility] Internal Medicine Work Phone: Comment on above: PATIENT NOT FASTINGP ERFORMED BY: HARLEEN [facility] Hpkwmh4874 [address] RoadDublin [place] [id number] Chloride [Moles/Vol] 102 mmol/L Normal 97-108 [facility] Work Phone: Comment on above: PATIENT NOT FASTINGP ERFORMED BY: CB [facility] Ahwxrm8464 [address] RoadDublin [place] [id number] CO2 [Moles/Vol] 20 mmol/L Normal 20-32 [facility] Internal Medicine Work Phone: Comment on above: PATIENT NOT FASTINGP ERFORMED BY: CB [facility] Icdmkp1011 [address] RoadDublin [place] [id number] Creatinine [Mass/Vol] 0.88 mg/dL Normal 0.57-1.00 [facility] Internal Medicine Work Phone: Comment on above: PATIENT NOT FASTINGP ERFORMED BY: CB [facility] Pjmsbc0898 [address] RoadDublin [place] [id number] GFR/1.73 sq M predicted among blacks MDRD [...] PATIENT NOT FASTINGP ERFORMED BY: CB [facility] Myravz1438 [facility] [place] [id number] GFR/1.73 sq M.predicted MDRD (S/P/Bld) [Vol rate/Area] mL/min/{1.73_m2} Normal [facility] Internal Medicine Work Phone: Comment on above: PATIENT NOT FASTINGP ERFORMED BY: CB [facility] Oucibs8258 Mauro aVinci MediaCape Fear Valley Medical Center [id number] Globulin (S) [Mass/Vol] 2.2 g/dL Normal 1.5-4.5 [facility] Internal Medicine Work Phone: Comment on above: PATIENT NOT FASTINGP ERFORMED BY: CB [facility] Csiemk1862 [facility] [place] [id number] Glucose [Mass/Vol] 82 mg/dL Normal 65-[address] [facility] Internal Medicine Work Phone: Comment on above: PATIENT NOT FASTINGP ERFORMED BY: CB [facility] Bmkcko4047 [facility] [place] [id number] Potassium [Moles/Vol] 4.0 mmol/L Normal 3.5-5.2 [facility] Internal Medicine Work Phone: Comment on above: PATIENT NOT FASTINGP ERFORMED BY: CB [facility] Mjcohy3587 [facility] [place] [id number] Protein [Mass/Vol] 6.6 g/dL Normal 6.0-8.[address] [facility] Internal Medicine Work Phone: Comment on above: PATIENT NOT FASTINGP ERFORMED BY: CB [facility] Imcffo0129 [address] RoadDublin [place] [id number] Sodium [Moles/Vol] 138 mmol/L Normal 135-[address] [facility] Internal Medicine Work Phone: Comment on above: PATIENT NOT FASTINGP ERFORMED BY: CB [facility] Ssicih2068 [address] RoadDublin [place] [id number] Urea nitrogen [Mass/Vol] 13 mg/dL Normal 5- [facility] Work Phone: Comment on above: PATIENT NOT FASTINGP ERFORMED BY: CB [facility] Dosolg5431 [address] RoadDublin [place] [id number] Urea nitrogen/Creatinine [Mass ratio] 15 mg/mg Normal 8- [facility] Work Phone: Comment on above: PATIENT NOT FASTINGP ERFORMED BY: CB [facility] Uryosc5652 [address] RoadDuin [place] [id number] TSH (82962)Ordered By: Augie m Lay Up Operator on 06-07-2010 TSH Qn 1.250 {uIU/mL} Normal 0.450-4.500 [facility] Internal Medicine Work Phone: Comment on above: PATIENT NOT FASTINGP ERFORMED BY: CB [facility] Rupxqk6476 [address] RoadDublin [place] [id number] SKIN TEST INTRADERMAL TB (86 580)Ordered By: Iris Durand on 09-30-2008 SKIN TEST INTRADERMAL TB (55097) Negative Normal [facility] Work Phone: Comment on above: Lot #[id number]/2010 Site-left forearmDose0.1given by Gladys Alfredo LPN SKIN TEST INTRADERMAL TB (31607) Negative Normal [facility]; [facility] Work Phone: Comment on above: Lot #[id number]/2010 Site-left forearmDose0.1given by Gladys Alfredo LPN Culture, urine Bacteria identified Cx Nom (U) Positive [facility] Work Phone: Bacteria identified Cx Nom (U) Culture exhibits no growth. [facility] [facility] Work Phone: No Panel Information Group B Streptococcus Culture Streptococcus agalactiae (B) [facility] Work Phone: Vital Signs Date Time Vital Sign Value Performing Clinician Facility 05-29-2023 14:57-0400 Body height 165.1 cm DO Alisia Foster Work Phone: [facility] 05-29-2023 14:57-0400 Body mass index (BMI) [Ratio] 22.3 kg/m2 DO Alisia Foster Work Phone: [facility] 05-29-2023 14:57-0400 Body weight 60.78 kg DO Alisia Foster Work Phone: [facility] 05-29-2023 14:57-0400 Diastolic blood pressure 90 mm[Hg] DO Alisia Foster Work Phone: [facility] 05-29-2023 14:57-0400 Heart rate 82 /min DO Alisia Foster Work Phone: [facility] 05-29-2023 14:57-0400 Systolic blood pressure 139 mm[Hg] DO Alisia Foster Work Phone: [facility] 02-20-2023 09:24-0400 Body temperature 98 [degF] Dr. Britta Acevedo Work Phone: [facility] 02-20-2023 09:24-0400 Diastolic blood pressure 72 mm[Hg] Dr. Britta Acevedo Work Phone: [facility] 02-20-2023 09:24-0400 Heart rate 90 /min Dr. Britta Acevedo Work Phone: [facility] 02-20-2023 09:24-0400 Respiratory rate 14 /min Dr. Britta Acevedo Work Phone: [facility] 02-20-2023 09:24-0400 SaO2% (BldA) [Mass fraction] 95 % Dr. Britta Acevedo Work Phone: [facility] 02-20-2023 09:24-0400 Systolic blood pressure 104 mm[Hg] Dr. Britta Acevedo Work Phone: [facility] 12-05-2022 06:26-0400 Body temperature 98.2 [degF] Dr. Britta Acevedo Work Phone: [facility] 12-05-2022 06:26-0400 Diastolic blood pressure 74 mm[Hg] Dr. Britta Acevedo Work Phone: [facility] 12-05-2022 06:26-0400 Heart rate 78 /min Dr. Britta Acevedo Work Phone: [facility] 12-05-2022 06:26-0400 Respiratory rate 16 /min Dr. Britta Acevedo Work Phone: [facility] 12-05-2022 06:26-0400 SaO2% (BldA) [Mass fraction] 98 % Dr. Britta Acevedo Work Phone: [facility] 12-05-2022 06:26-0400 Systolic blood pressure 110 mm[Hg] Dr. Britta Acevedo Work Phone: [facility] 05-26-2022 13:53-0400 Body height 165.[address] Britta Acevedo Work Phone: [facility] Work Phone: 05-26-2022 13:53-0400 Body mass index (BMI) [Ratio] 24 kg/m2 Dr. Britta Acevedo Work Phone: [facility] Work Phone: 05-26-2022 13:53-0400 Body weight 65.[address] Britta Acevedo Work Phone: [facility] Work Phone: 05-26-2022 13:53-0400 Diastolic blood pressure 80 mm[Hg] Dr. Britta Acevedo Work Phone: [facility] Work Phone: 05-26-2022 13:53-0400 Systolic blood pressure 140 mm[Hg] Dr. Britta Acevedo Work Phone: [facility] Work Phone: 04-26-2022 15:03-0400 Body height 165.[address] Britta Acevedo Work Phone: [facility] Work Phone: 04-26-2022 15:03-0400 Body mass index (BMI) [Ratio] 24.8 kg/m2 Dr. Britta Aecvedo Work Phone: [facility] Work Phone: 04-26-2022 15:03-0400 Body weight 67.[address] Britta Acevedo Work Phone: [facility] Work Phone: 04-26-2022 15:03-0400 Diastolic blood pressure 79 mm[Hg] Dr. Britta Acevedo Work Phone: [facility] Work Phone: 04-26-2022 15:03-0400 Systolic blood pressure 129 mm[Hg] Dr. Britta Acevedo Work Phone: [facility] Work Phone: 04-16-2022 14:22-0400 Body temperature 97.8 [degF] Dr. Britta Acevedo Work Phone: [facility] Work Phone: 04-16-2022 14:22-0400 Diastolic blood pressure 67 mm[Hg] Dr. Britta Acevedo Work Phone: [facility] Work Phone: 04-16-2022 14:22-0400 Heart rate 81 /min Dr. Britta Acevedo Work Phone: [facility] Work Phone: 04-16-2022 14:22-0400 Respiratory rate 16 /min Dr. Britta Acevedo Work Phone: [facility] Work Phone: 04-16-2022 14:22-0400 SaO2% (BldA) [Mass fraction] 96 % Dr. Britta Acevedo Work Phone: [facility] Work Phone: 04-16-2022 14:22-0400 Systolic blood pressure 111 mm[Hg] Dr. Britta Acevedo Work Phone: [facility] Work Phone: 04-14-2022 10:22-0400 Body height 165.[address] Britta Acevedo Work Phone: [facility] Work Phone: 04-14-2022 10:22-0400 Body mass index (BMI) [Ratio] 26.4 kg/m2 Dr. Britta Acevedo Work Phone: [facility] Work Phone: 04-14-2022 10:22-0400 Body weight 72.[address] Britta Acevedo Work Phone: [facility] Work Phone: 04-08-2022 09:43-0400 Body height 165.[address] Britta Acevedo Work Phone: [facility] Work Phone: 04-08-2022 09:43-0400 Body mass index (BMI) [Ratio] 26.5 kg/m2 Dr. Britta Acevedo Work Phone: [facility] Work Phone: 04-08-2022 09:43-0400 Body weight 72.[address] Britta Acevedo Work Phone: [facility] Work Phone: 04-08-2022 09:43-0400 Diastolic blood pressure 72 mm[Hg] Dr. Britta Acevedo Work Phone: [facility] Work Phone: 04-08-2022 09:43-0400 Systolic blood pressure 118 mm[Hg] Dr. Britta Acevedo Work Phone: [facility] Work Phone: 04-01-2022 15:52-0400 Body height 165.[address] Britta Acevedo Work Phone: [facility] Work Phone: 04-01-2022 15:51-0400 Body mass index (BMI) [Ratio] 26.6 kg/m2 Dr. Britta Acevedo Work Phone: [facility] Work Phone: 04-01-2022 15:51-0400 Body weight 72.[address] Britta Acevedo Work Phone: [facility] Work Phone: 04-01-2022 15:51-0400 Diastolic blood pressure 72 mm[Hg] Dr. Britta Acevedo Work Phone: [facility] Work Phone: 04-01-2022 15:51-0400 Systolic blood pressure 120 mm[Hg] Dr. Britta Acevedo Work Phone: [facility] Work Phone: 03-25-2022 14:50-0400 Body mass index (BMI) [Ratio] 26.2 kg/m2 Dr. Britta Acevedo Work Phone: [facility] Work Phone: 03-25-2022 14:50-0400 Body weight 71.[address] Britta Acevedo Work Phone: [facility] Work Phone: 03-25-2022 14:50-0400 Diastolic blood pressure 74 mm[Hg] Dr. Britta Acevedo Work Phone: [facility] Work Phone: 03-25-2022 14:50-0400 Systolic blood pressure 110 mm[Hg] Dr. Britta Acevedo Work Phone: [facility] Work Phone: 03-09-2022 15:49-0400 Body mass index (BMI) [Ratio] 26.1 kg/m2 Dr. Britta Acevedo Work Phone: [facility] Work Phone: 03-09-2022 15:49-0400 Body weight 71.[address] Britta Acevedo Work Phone: [facility] Work Phone: 03-09-2022 15:49-0400 Diastolic blood pressure 60 mm[Hg] Dr. Britta Acevedo Work Phone: [facility] Work Phone: 03-09-2022 15:49-0400 Systolic blood pressure 112 mm[Hg] Dr. Britta Acevedo Work Phone: [facility] Work Phone: 02-25-2022 15:41-0400 Body mass index (BMI) [Ratio] 30.8 kg/m2 Dr. Britta Acevedo Work Phone: [facility] Work Phone: 02-25-2022 15:41-0400 Body weight 71.[address] Britta Acevedo Work Phone: [facility] Work Phone: 02-25-2022 15:41-0400 Diastolic blood pressure 62 mm[Hg] Dr. Britta Acevedo Work Phone: [facility] Work Phone: 02-25-2022 15:41-0400 Systolic blood pressure 124 mm[Hg] Dr. Britta Acevedo Work Phone: [facility] Work Phone: 02-11-2022 16:03-0400 Body mass index (BMI) [Ratio] 29.9 kg/m2 Dr. Britta Acevedo Work Phone: [facility] Work Phone: 02-11-2022 16:03-0400 Body weight 69.[address] Britta Acevedo Work Phone: [facility] Work Phone: 02-11-2022 16:03-0400 Diastolic blood pressure 76 mm[Hg] Dr. Britta Acevedo Work Phone: [facility] Work Phone: 02-11-2022 16:03-0400 Systolic blood pressure 112 mm[Hg] Dr. Britta Acevedo Work Phone: [facility] Work Phone: 01-26-2022 15:28-0400 Body height 152.[address] Britta Acevedo Work Phone: [facility] Work Phone: 01-26-2022 15:28-0400 Body mass index (BMI) [Ratio] 29.2 kg/m2 Dr. Britta Acevedo Work Phone: [facility] Work Phone: 01-26-2022 15:28-0400 Body weight 67.[address] Britta Acevedo Work Phone: [facility] Work Phone: 01-26-2022 15:28-0400 Diastolic blood pressure 76 mm[Hg] Dr. Britta Acevedo Work Phone: [facility] Work Phone: 01-26-2022 15:28-0400 Systolic blood pressure 126 mm[Hg] Dr. Britta Acevedo Work Phone: [facility] Work Phone: 12-24-2021 10:50-0400 Body mass index (BMI) [Ratio] 28.9 kg/m2 Dr. Britta Acevedo Work Phone: [facility] Work Phone: 12-24-2021 10:50-0400 Body weight 67.[address] Britta Acevedo Work Phone: [facility] Work Phone: 12-24-2021 10:50-0400 Diastolic blood pressure 78 mm[Hg] Dr. Britta Acevedo Work Phone: [facility] Work Phone: 12-24-2021 10:50-0400 Systolic blood pressure 118 mm[Hg] Dr. Britta Acevedo Work Phone: [facility] Work Phone: 11-26-2021 16:04-0400 Body mass index (BMI) [Ratio] 23.8 kg/m2 Dr. Britta Acevedo Work Phone: [facility] Work Phone: 11-26-2021 16:04-0400 Body weight 64.[address] Britta Acevedo Work Phone: [facility] Work Phone: 11-26-2021 16:04-0400 Diastolic blood pressure 70 mm[Hg] Dr. Britta Acevedo Work Phone: [facility] Work Phone: 11-26-2021 16:04-0400 Systolic blood pressure 114 mm[Hg] Dr. Britta Acevedo Work Phone: [facility] Work Phone: 10-29-2021 15:52-0400 Body mass index (BMI) [Ratio] 24 kg/m2 Dr. Britta Acevedo Work Phone: [facility] Work Phone: 10-29-2021 15:52-0400 Body weight 65.[address] Britta Acevedo Work Phone: [facility] Work Phone: 10-29-2021 15:52-0400 Diastolic blood pressure 78 mm[Hg] Dr. Britta Acevedo Work Phone: [facility] Work Phone: 10-29-2021 15:52-0400 Systolic blood pressure 118 mm[Hg] Dr. Britta Acevedo Work Phone: [facility] Work Phone: 10-29-2021 15:52-0400 Body height 165.[address] Britta Acevedo Work Phone: [facility] Work Phone: 10-29-2021 15:52-0400 Body mass index (BMI) [Ratio] 24 kg/m2 Dr. Britta Acevedo Work Phone: [facility] Work Phone: 10-29-2021 15:52-0400 Body weight 65.[address] Britta Acevedo Work Phone: [facility] Work Phone: 10-29-2021 15:52-0400 Diastolic blood pressure 78 mm[Hg] Dr. Britta Acevedo Work Phone: [facility] Work Phone: 10-29-2021 15:52-0400 Systolic blood pressure 118 mm[Hg] Dr. Britta Acevedo Work Phone: [facility] Work Phone: 10-01-2021 15:22-0500 Body mass index (BMI) [Ratio] 23.9 kg/m2 Dr. Britta Acevedo Work Phone: [facility] Work Phone: 10-01-2021 15:22-0500 Body weight 65.[address] Britta Acevedo Work Phone: [facility] Work Phone: 10-01-2021 15:22-0500 Diastolic blood pressure 80 mm[Hg] Dr. Britta Acevedo Work Phone: [facility] Work Phone: 10-01-2021 15:22-0500 Systolic blood pressure 114 mm[Hg] Dr. Britta Acevedo Work Phone: [facility] Work Phone: 10-01-2021 14:22-0500 Body mass index (BMI) [Ratio] 23.9 kg/m2 Dr. Britta Acevedo Work Phone: [facility] Work Phone: 10-01-2021 14:22-0500 Body weight 65.[address] Britta Acevedo Work Phone: [facility] Work Phone: 10-01-2021 14:22-0500 Diastolic blood pressure 80 mm[Hg] Dr. Britta Acevedo Work Phone: [facility] Work Phone: 10-01-2021 14:22-0500 Systolic blood pressure 114 mm[Hg] Dr. Britta Acevedo Work Phone: [facility] Work Phone: 09-16-2021 10:20-0500 Diastolic blood pressure 86 mm[Hg] Dr. Britta Acevedo Work Phone: [facility] Work Phone: 09-16-2021 10:20-0500 Systolic blood pressure 120 mm[Hg] Dr. Britta Acevedo Work Phone: [facility] Work Phone: 09-16-2021 10:12-0500 Body mass index (BMI) [Ratio] 23.1 kg/m2 Dr. Britta Acevedo Work Phone: [facility] Work Phone: 09-16-2021 10:12-0500 Body weight 63.[address] Britta Acevedo Work Phone: [facility] Work Phone: 09-09-2021 14:33-0500 Body mass index (BMI) [Ratio] 23.3 kg/m2 Dr. Britta Acevedo Work Phone: [facility] Work Phone: 09-09-2021 14:33-0500 Body weight 63.[address] Britta Acevedo Work Phone: [facility] Work Phone: 06-30-2017 13:12-0500 BMI (Body Mass Index) 21.8 kg/m2 Sonya Benoit MD [facility] 06-30-2017 13:12-0500 BP Diastolic 75 mm[Hg] Sonya Benoit MD [facility] 06-30-2017 13:12-0500 BP Systolic 125 mm[Hg] Sonya Benoit MD [facility] 06-30-2017 13:12-0500 Height 165.1 cm Sonya Benoit MD [facility] 06-30-2017 13:12-0500 Weight 59.42 kg Sonya Benoit MD [facility] 12-13-2016 08:07-0400 BMI (Body Mass Index) 21.97 kg/m2 Louisa Slarb [employer] [facility] Work Phone: 12-13-2016 08:07-0400 Body Temperature 98.1 [degF] Louisa Slarb [employer] [facility] Work Phone: 12-13-2016 08:07-0400 Body weight 59.88 kg Louisa Slarb [employer] [facility] Work Phone: 12-13-2016 08:07-0400 BP Diastolic 72 mm[Hg] Louisa Slarb [employer] [facility] Work Phone: Comment on above: Patient Position: Sitting; Cuff Location : Left Arm; Cuff Size: Standard 12-13-2016 08:07-0400 BP Systolic 108 mm[Hg] Louisa Foreman LPN [facility] Work Phone: Comment on above: Patient Position: Sitting; Cuff Location : Left Arm; Cuff Size: Standard 12-13-2016 08:07-0400 BSA (Body Surface Area) 1.66 m2 Louisa Foreman [employer] [facility] Work Phone: 12-13-2016 08:07-0400 Height 165.1 cm Louisa Ahsan [employer] [facility] Work Phone: 12-13-2016 08:07-0400 Pulse (Heart Rate) 65 /min Louisa Stephanerb [employer] [facility] Work Phone: Comment on above: Pattern: Regular 12-13-2016 08:07-0400 Pulse Oximetry 99 % Britta Acevedo [facility] Work Phone: Comment on above: Room air 12-13-2016 08:07-0400 Respiratory Rate 16 /min Louisa Foreman [employer] [facility] Work Phone: Comment on above: Pattern: Unlabored 12-13-2016 08:07-0400 SaO2% (BldA) [Mass fraction] 99 % Louisa Calderónrb [employer] [facility]; [facility] Work Phone: Comment on above: Room air 01-08-2016 08:45-0400 BMI (Body Mass Index) 21.3 kg/m2 Kate Fischer [facility] Work Phone: 01-08-2016 08:45-0400 Body Temperature 96.9 [degF] Kate Fischer [facility] Work Phone: Comment on above: Method: Temporal 01-08-2016 08:45-0400 Body weight 58.06 kg Kate Fischer [facility] Work Phone: 01-08-2016 08:45-0400 BP Diastolic 76 mm[Hg] Kate Fischer [facility] Work Phone: Comment on above: Patient Position: Sitting; Cuff Location : Left Arm; Cuff Size: Standard 01-08-2016 08:45-0400 BP Systolic 110 mm[Hg] Kate Aaliyah [facility] Work Phone: Comment on above: Patient Position: Sitting; Cuff Location : Left Arm; Cuff Size: Standard 01-08-2016 08:45-0400 BSA (Body Surface Area) 1.64 m2 Kate Aaliyah [facility] Work Phone: 01-08-2016 08:45-0400 Height 165.1 cm Kate Aaliyah [facility] Work Phone: 01-08-2016 08:45-0400 Pulse (Heart Rate) 56 /min Kate Aaliyah [facility] Work Phone: Comment on above: Pattern: Regular 01-08-2016 08:45-0400 Pulse Oximetry 98 % Britta Acevedo [facility] Work Phone: Comment on above: Room air 01-08-2016 08:45-0400 Respiratory Rate 16 /min Kate Aaliyah [facility] Work Phone: Comment on above: Pattern: Unlabored 01-08-2016 08:45-0400 SaO2% (BldA) [Mass fraction] 98 % Kate Fischer [facility]; [facility] Work Phone: Comment on above: Room air 12-04-2015 11:16-0400 BMI (Body Mass Index) 21.47 kg/m2 Kate Fischer [facility] Work Phone: 12-04-2015 11:16-0400 Body Temperature 97.4 [degF] Kate Aaliyah [facility] Work Phone: Comment on above: Method: Temporal 12-04-2015 11:16-0400 Body weight 58.51 kg Kate Aaliyah [facility] Work Phone: 12-04-2015 11:16-0400 BP Diastolic 78 mm[Hg] Kate Fischer [facility] Work Phone: Comment on above: Patient Position: Sitting; Cuff Location : Left Arm; Cuff Size: Standard 12-04-2015 11:16-0400 BP Systolic 100 mm[Hg] Kaet Fischer [facility] Work Phone: Comment on above: Patient Position: Sitting; Cuff Location : Left Arm; Cuff Size: Standard 12-04-2015 11:16-0400 BSA (Body Surface Area) 1.64 m2 Kate Gaytanrosi [facility] Work Phone: 12-04-2015 11:16-0400 Height 165.1 cm Kate Gaytanrosi [facility] Work Phone: 12-04-2015 11:16-0400 Pulse (Heart Rate) 52 /min Kate Fischer [facility] Work Phone: Comment on above: Pattern: Regular 12-04-2015 11:16-0400 Respiratory Rate 15 /min Kate Gaytanrosi [facility] Work Phone: Comment on above: Pattern: Unlabored 02-23-2015 09:12-0400 BMI (Body Mass Index) 23.63 kg/m2 Kate Lagosgasper [facility] Work Phone: 02-23-2015 09:12-0400 Body Temperature 97.2 [degF] Kate Fischer [facility] Work Phone: Comment on above: Method: Oral 02-23-2015 09:12-0400 Body weight 64.41 kg Kate Gaytanrosi [facility] Work Phone: 02-23-2015 09:12-0400 BP Diastolic 76 mm[Hg] Kate Gaytanrosi [facility] Work Phone: Comment on above: Patient Position: Sitting; Cuff Location : Left Arm; Cuff Size: Standard 02-23-2015 09:12-0400 BP Systolic 102 mm[Hg] Kate Lagosgasper [facility] Work Phone: Comment on above: Patient Position: Sitting; Cuff Location : Left Arm; Cuff Size: Standard 02-23-2015 09:12-0400 BSA (Body Surface Area) 1.71 m2 Kate Fischer [facility] Work Phone: 02-23-2015 09:12-0400 Height 165.1 cm Ktae Fischer [facility] Work Phone: 02-23-2015 09:12-0400 Pulse (Heart Rate) 74 /min Kate Fischer [facility] Work Phone: Comment on above: Pattern: Regular 02-23-2015 09:12-0400 Respiratory Rate 16 /min Kate Fischer [facility] Work Phone: Comment on above: Pattern: Unlabored 10-24-2014 07:10-0400 BMI (Body Mass Index) 23.96 kg/m2 Kate Fischer [facility] Work Phone: 10-24-2014 07:10-0400 Body Temperature 98.3 [degF] Kate Fischer [facility] Work Phone: 10-24-2014 07:10-0400 Body weight 65.32 kg Kate Fischer [facility] Work Phone: 10-24-2014 07:10-0400 BP Diastolic 72 mm[Hg] Kate Fischer [facility] Work Phone: Comment on above: Patient Position: Sitting; Cuff Location : Left Arm; Cuff Size: Standard 10-24-2014 07:10-0400 BP Systolic 108 mm[Hg] Kate Fischer [facility] Work Phone: Comment on above: Patient Position: Sitting; Cuff Location : Left Arm; Cuff Size: Standard 10-24-2014 07:10-0400 BSA (Body Surface Area) 1.72 m2 Kate Fischer [facility] Work Phone: 10-24-2014 07:10-0400 Height 165.1 cm Kate Fischer [facility] Work Phone: 10-24-2014 07:10-0400 Pulse (Heart Rate) 70 /min Kate Fischer [facility] Work Phone: Comment on above: Pattern: Regular 10-24-2014 07:10-0400 Respiratory Rate 16 /min Kate Fischer [facility] Work Phone: Comment on above: Pattern: Unlabored 06-16-2014 15:31-0500 BMI (Body Mass Index) 24.85 kg/m2 Britta Acevedo [facility] Work Phone: 06-16-2014 15:31-0500 Body Temperature 97.6 [degF] Britta Acevedo [facility] Work Phone: Comment on above: Method: Oral 06-16-2014 15:31-0500 Body weight 67.73 kg Britta Acevedo [facility] Work Phone: 06-16-2014 15:31-0500 BP Diastolic 72 mm[Hg] Britta Acevedo [facility] Work Phone: Comment on above: Patient Position: Sitting; Cuff Location : Left Arm; Cuff Size: Standard 06-16-2014 15:31-0500 BP Systolic 116 mm[Hg] Britta Acevedo [facility] Work Phone: Comment on above: Patient Position: Sitting; Cuff Location : Left Arm; Cuff Size: Standard 06-16-2014 15:31-0500 BSA (Body Surface Area) 1.75 m2 Britta Acevedo [facility] Work Phone: 06-16-2014 15:31-0500 Height 165.1 cm Britta Acevedo [facility] Work Phone: 06-16-2014 15:31-0500 Pulse (Heart Rate) 74 /min Britta Acevedo [facility] Work Phone: Comment on above: Pattern: Regular 06-16-2014 15:31-0500 Pulse Oximetry 99 % Britta Acevedo [facility] Work Phone: Comment on above: Room air 06-16-2014 15:31-0500 Respiratory Rate 15 /min Britta Acevedo [facility] Work Phone: 06-16-2014 15:31-0500 SaO2% (BldA) [Mass fraction] 99 % Britta Acevedo DO Work Phone: [facility]; [facility] Work Phone: Comment on above: Room air 05-13-2014 12:02-0400 BMI (Body Mass Index) 24.85 kg/m2 [facility] Work Phone: 05-13-2014 12:02-0400 Body Temperature 97.1 [degF] [facility] Work Phone: Comment on above: Method: Oral 05-13-2014 12:02040 Body weight 67.73 kg [facility] [facility] Work Phone: 05-13-2014 12:02-0400 BP Diastolic 64 mm[Hg] [facility] Work Phone: Comment on above: Patient Position: Sitting; Cuff Location : Left Arm; Cuff Size: Standard 05-13-2014 12:02-0400 BP Systolic 118 mm[Hg] [facility] Work Phone: Comment on above: Patient Position: Sitting; Cuff Location : Left Arm; Cuff Size: Standard 05-13-2014 12:02-0400 BSA (Body Surface Area) 1.75 m2 [facility] Work Phone: 05-13-2014 12:02-0400 Height 165.1 cm [facility] Internal Medicine Work Phone: 05-13-2014 12:02-0400 Pulse (Heart Rate) 76 /min [facility] Internal Medicine Work Phone: Comment on above: Pattern: Regular 05-13-2014 12:02-0400 Pulse Oximetry 99 % Britta Acevedo [facility] Internal Medicine Work Phone: Comment on above: Room air 05-13-2014 12:02-0400 Respiratory Rate 18 /min [facility] Internal Medicine Work Phone: Comment on above: Pattern: Unlabored 05-13-2014 12:02-0400 SaO2% (BldA) [Mass fraction] 99 % Aurora Kamar [facility] Internal Medicine; [facility] Work Phone: Comment on above: Room air 04-02-2014 13:17-0400 BMI (Body Mass Index) 24.79 kg/m2 Chantal Go [facility] Internal Medicine Work Phone: 04-02-2014 13:17-0400 Body Temperature 97 [degF] Chantal Go [facility] Internal Medicine Work Phone: Comment on above: Method: Oral 04-02-2014 13:170400 Body weight 67.59 kg Chantal Go [facility] Internal Medicine Work Phone: 04-02-2014 13:17-0400 BP Diastolic 68 mm[Hg] Chantal Go [facility] Internal Medicine Work Phone: Comment on above: Patient Position: Sitting; Cuff Location : Left Arm; Cuff Size: Standard 04-02-2014 13:17-0400 BP Systolic 115 mm[Hg] Chantal Go [facility] Internal Medicine Work Phone: Comment on above: Patient Position: Sitting; Cuff Location : Left Arm; Cuff Size: Standard 04-02-2014 13:170400 BSA (Body Surface Area) 1.75 m2 Chantal Go [facility] Internal Medicine Work Phone: 04-02-2014 13:170400 Height 165.1 cm Chantal Go [facility] Internal Medicine Work Phone: 04-02-2014 13:17-0400 Pulse (Heart Rate) 68 /min Chantal Go [facility] Internal Medicine Work Phone: Comment on above: Pattern: Regular 04-02-2014 13:17-0400 Pulse Oximetry 98 % Britta Acevedo [facility] Internal Medicine Work Phone: Comment on above: Room air 04-02-2014 13:17-0400 Respiratory Rate 16 /min Chantal Go [facility] Internal Medicine Work Phone: Comment on above: Pattern: Unlabored 04-02-2014 13:17-0400 SaO2% (BldA) [Mass fraction] 98 % Chantal Go [facility]; [facility] Work Phone: Comment on above: Room air 03-21-2014 13:34-0400 BMI (Body Mass Index) 24.79 kg/m2 Chantal Go [facility] Internal Medicine Work Phone: 03-21-2014 13:34-0400 Body Temperature 98.2 [degF] Chantal Go [facility] Internal Medicine Work Phone: Comment on above: Method: Oral 03-21-2014 13:34-0400 Body weight 67.59 kg Chantal Go [facility] Internal Medicine Work Phone: 03-21-2014 13:34-0400 BP Diastolic 62 mm[Hg] Chantal Go [facility] Internal Medicine Work Phone: Comment on above: Patient Position: Sitting; Cuff Location : Left Arm; Cuff Size: Standard 03-21-2014 13:34-0400 BP Systolic 102 mm[Hg] Chantal Go [facility] Internal Medicine Work Phone: Comment on above: Patient Position: Sitting; Cuff Location : Left Arm; Cuff Size: Standard 03-21-2014 13:34-0400 BSA (Body Surface Area) 1.75 m2 Chantal Go [facility] Internal Medicine Work Phone: 03-21-2014 13:34-0400 Height 165.1 cm Chantal Go [facility] Internal Medicine Work Phone: 03-21-2014 13:34-0400 Pulse (Heart Rate) 68 /min Chantal Go [facility] Internal Medicine Work Phone: Comment on above: Pattern: Regular 03-21-2014 13:34-0400 Pulse Oximetry 98 % Britta Curtis [facility] Internal Medicine Work Phone: Comment on above: Room air 03-21-2014 13:34-0400 Respiratory Rate 16 /min Chantal Go [facility] Internal Medicine Work Phone: Comment on above: Pattern: Unlabored 03-21-2014 13:34-0400 SaO2% (BldA) [Mass fraction] 98 % Chantal Go [facility]; [facility] Work Phone: Comment on above: Room air 05-22-2013 15:31-0400 BMI (Body Mass Index) 23.63 kg/m2 Chantal Go [facility] Internal Medicine Work Phone: 05-22-2013 15:31-0400 Body weight 64.41 kg Chantal Go [facility] Internal Medicine Work Phone: 05-22-2013 15:31-0400 BP Diastolic 68 mm[Hg] Chantal Go [facility] Internal Medicine Work Phone: Comment on above: Patient Position: Sitting; Cuff Location : Left Arm; Cuff Size: Standard 05-22-2013 15:31-0400 BP Systolic 116 mm[Hg] Chantal Go [facility] Internal Medicine Work Phone: Comment on above: Patient Position: Sitting; Cuff Location : Left Arm; Cuff Size: Standard 05-22-2013 15:31-0400 BSA (Body Surface Area) 1.71 m2 Chantal Go [facility] Internal Medicine Work Phone: 05-22-2013 15:31-0400 Height 165.1 cm Chantal Go [facility] Internal Medicine Work Phone: 05-22-2013 15:31-0400 Pulse (Heart Rate) 68 /min Chantal Go [facility] Internal Medicine Work Phone: Comment on above: Pattern: Regular 05-22-2013 15:31-0400 Respiratory Rate 16 /min Chantal Go [facility] Internal Medicine Work Phone: Comment on above: Pattern: Unlabored 08-03-2012 15:20-0500 BMI (Body Mass Index) 23.63 kg/m2 Britta Acevedo [facility] Internal Medicine Work Phone: 08-03-2012 15:20-0500 Body Temperature 98.9 [degF] [facility]: Comment on above: Method: Oral 08-03-2012 15:20-0500 Body weight 64.41 kg Britta Acevedo [facility] Internal Medicine Work Phone: 08-03-2012 15:20-0500 BP Diastolic 68 mm[Hg] Britta Acevedo [facility] Internal Medicine Work Phone: Comment on above: Patient Position: Sitting; Cuff Location : Left Arm; Cuff Size: Standard 08-03-2012 15:20-0500 BP Systolic 110 mm[Hg] Britta Acevedo [facility] Internal Medicine Work Phone: Comment on above: Patient Position: Sitting; Cuff Location : Left Arm; Cuff Size: Standard 08-03-2012 15:20-0500 BSA (Body Surface Area) 1.71 m2 Britta Acevedo [facility] Internal Medicine Work Phone: 08-03-2012 15:20-0500 Height 165.1 cm Britta Acevedo [facility] Internal Medicine Work Phone: 08-03-2012 15:20-0500 Pulse (Heart Rate) 80 /min Britta Acevedo [facility] Internal Medicine Work Phone: Comment on above: Pattern: Regular 08-03-2012 15:20-0500 Pulse Oximetry 98 % Britta Acevedo [facility] Internal Medicine Work Phone: Comment on [...] 07-12-2012 07:33-0500 Body weight 64.41 kg VEGA Gutierrze LPN [facility] Internal Medicine Work Phone: 07-12-2012 07:33-0500 BP Diastolic 68 mm[Hg] VEGA Gutierrez LPN [facility] Internal Medicine Work Phone: Comment on above: Patient Position: Sitting; Cuff Location : Left Arm; Cuff Size: Standard 07-12-2012 07:33-0500 BP Systolic 100 mm[Hg] VEGA Gutierrez LPN [facility] Internal Medicine Work Phone: Comment on above: Patient Position: Sitting; Cuff Location : Left Arm; Cuff Size: Standard 07-12-2012 07:33-0500 BSA (Body Surface Area) 1.71 m2 VEGA Gutierrez LPN [facility] Internal Medicine Work Phone: 07-12-2012 07:33-0500 Height 165.1 cm VEGA Gutierrez LPN [facility] Internal Medicine Work Phone: 07-12-2012 07:33-0500 Pulse (Heart Rate) 74 /min VEGA Gutierrez LPN [facility] Work Phone: Comment on above: Pattern: Regular 07-12-2012 07:33-0500 Respiratory Rate 18 /min VEGA Gutierrez LPN [facility] Work Phone: Comment on above: Pattern: Unlabored 06-22-2012 08:46-0500 BMI (Body Mass Index) 23.68 kg/m2 Britta Acevedo [facility] Internal Medicine Work Phone: 06-22-2012 08:46-0500 Body Temperature 98.8 [degF] Britta Acevedo [facility] Internal Medicine Work Phone: Comment on above: Method: Oral 06-22-2012 08:46-0500 Body weight 64.55 kg Britta Acevedo [facility] Internal Medicine Work Phone: 06-22-2012 08:46-0500 BP Diastolic 70 mm[Hg] Britat Acevedo [facility] Internal Medicine Work Phone: Comment on above: Patient Position: Sitting; Cuff Location : Left Arm; Cuff Size: Standard 06-22-2012 08:46-0500 BP Systolic 110 mm[Hg] Britta Acevedo [facility] Internal Medicine Work Phone: Comment on above: Patient Position: Sitting; Cuff Location : Left Arm; Cuff Size: Standard 06-22-2012 08:46-0500 BSA (Body Surface Area) 1.71 m2 Britta Acevedo [facility] Internal Medicine Work Phone: 06-22-2012 08:46-0500 Height 165.1 cm Britta Acevedo [facility] Internal Medicine Work Phone: 06-22-2012 08:46-0500 Pulse (Heart Rate) 72 /min Britta Acevedo [facility] Internal Medicine Work Phone: Comment on above: Pattern: Regular 06-22-2012 08:46-0500 Respiratory Rate 16 /min Britta Acevedo [facility] Internal Medicine Work Phone: Comment on above: Pattern: Unlabored 10-24-2011 10:09-0400 BMI (Body Mass Index) 23.68 kg/m2 Britta Acevedo [facility] Internal Medicine Work Phone: 10-24-2011 10:09-0400 Body Temperature 98.7 [degF] Britta Acevedo [facility] Internal Medicine Work Phone: Comment on above: Method: Oral 10-24-2011 10:09-0400 Body weight 64.55 kg Britta Acevedo [facility] Internal Medicine Work Phone: 10-24-2011 10:09-0400 BP Diastolic 72 mm[Hg] Britta Acevedo [facility] Internal Medicine Work Phone: Comment on above: Patient Position: Sitting; Cuff Location : Left Arm; Cuff Size: Standard 10-24-2011 10:09-0400 BP Systolic 112 mm[Hg] Britta Acevedo [facility] Internal Medicine Work Phone: Comment on above: Patient Position: Sitting; Cuff Location : Left Arm; Cuff Size: Standard 10-24-2011 10:09-0400 BSA (Body Surface Area) 1.71 m2 Britta Acevedo [facility] Internal Medicine Work Phone: 10-24-2011 10:09-0400 Height 165.1 cm Britta Acevedo [facility] Work Phone: 10-24-2011 10:09-0400 Pulse (Heart Rate) 88 /min Britta Acevedo [facility] Internal Medicine Work Phone: Comment on above: Pattern: Regular 10-24-2011 10:09-0400 Pulse Oximetry 98 % Britta Acevedo [facility] Internal Medicine Work Phone: Comment on above: Room air 10-24-2011 10:09-0400 Respiratory Rate 16 /min Britta Acevedo [facility] Internal Medicine Work Phone: 10-24-2011 10:09-0400 SaO2% (BldA) [Mass fraction] 98 % Britta Acevedo DO Work Phone: [facility]; [facility] Work Phone: Comment on above: Room air 07-15-2011 13:25-0500 BMI (Body Mass Index) 23.85 kg/m2 Britta Acevedo [facility] Internal Medicine Work Phone: 07-15-2011 13:25-0500 Body Temperature 97.9 [degF] Britta Acevedo [facility] Internal Medicine Work Phone: Comment on above: Method: Oral 07-15-2011 13:25-0500 Body weight 65.01 kg Britta Acevedo [facility] Internal Medicine Work Phone: 07-15-2011 13:25-0500 BP Diastolic 70 mm[Hg] Britta Acevedo [facility] Internal Medicine Work Phone: Comment on above: Patient Position: Sitting; Cuff Location : Left Arm; Cuff Size: Standard 07-15-2011 13:25-0500 BP Systolic 110 mm[Hg] Britta Acevedo [facility] Internal Medicine Work Phone: Comment on above: Patient Position: Sitting; Cuff Location : Left Arm; Cuff Size: Standard 07-15-2011 13:25-0500 BSA (Body Surface Area) 1.72 m2 Britta Acevedo [facility] Internal Medicine Work Phone: 07-15-2011 13:25-0500 Height [...] 11:30-0500 Body weight 64.41 kg No Ariza [employer] [facility] Work Phone: 09-03-2010 11:30-0500 BP Diastolic 74 mm[Hg] No Songti [employer] [facility] Work Phone: Comment on above: Patient Position: Sitting; Cuff Location : Left Arm; Cuff Size: Standard 09-03-2010 11:30-0500 BP Systolic 112 mm[Hg] No Songti [employer] [facility] Work Phone: Comment on [...] 08:39-0500 BP Systolic 112 mm[Hg] Britta Acevedo [facility] Internal Medicine Work Phone: Comment on above: Patient Position: Sitting; Cuff Location : Left Arm; Cuff Size: Standard 08-10-2010 08:39-0500 Pulse (Heart Rate) 76 /min Britta Acevedo [facility] Internal Medicine Work Phone: Comment on above: Pattern: Regular 08-10-2010 08:39-0500 Respiratory Rate 17 /min Britta Acevedo [facility] Internal Medicine Work Phone: Comment on above: Pattern: Unlabored 06-30-2010 11:31-0500 Body Temperature 98.3 [degF] Kate Aaliyah [facility] Internal Medicine Work Phone: 06-30-2010 11:31-0500 Body weight 64.41 kg Kate Aaliyah [facility] Internal Medicine Work Phone: 06-30-2010 11:31-0500 BP Diastolic 74 mm[Hg] Kate Aaliyah [facility] Internal Medicine Work Phone: Comment on above: Patient Position: Sitting; Cuff Location : Left Arm; Cuff Size: Standard 06-30-2010 11:31-0500 BP Systolic 110 mm[Hg] Kate Aaliyah [facility] Internal Medicine Work Phone: Comment on above: Patient Position: Sitting; Cuff Location : Left Arm; Cuff Size: Standard 06-30-2010 11:31-0500 Pulse (Heart Rate) 76 /min Kate Fischer [facility] Internal Medicine Work Phone: Comment on above: Pattern: Regular 06-30-2010 11:31-0500 Respiratory Rate 16 /min Kate Fischer [facility] Internal Medicine Work Phone: Comment on above: Pattern: Unlabored 06-07-2010 09:55-0400 Body Temperature 97.9 [degF] Kate Aaliyah [facility] Internal Medicine Work Phone: 06-07-2010 09:55-0400 Body weight 66.23 kg Kate Fischer [facility] Internal Medicine Work Phone: 06-07-2010 09:55-0400 BP Diastolic 80 mm[Hg] Kate Fischer [facility] Internal Medicine Work Phone: Comment on above: Patient Position: Sitting; Cuff Location : Left Arm; Cuff Size: Standard 06-07-2010 09:55-0400 BP Systolic 122 mm[Hg] Kate Fischer [facility] Internal Medicine Work Phone: Comment on above: Patient Position: Sitting; Cuff Location : Left Arm; Cuff Size: Standard 06-07-2010 09:55-0400 Pulse (Heart Rate) 72 /min Kate Fischer [facility] Work Phone: Comment on above: Pattern: Regular 06-07-2010 09:55-0400 Respiratory Rate 18 /min Kate Fischer [facility] Internal Medicine Work Phone: Comment on above: Pattern: Unlabored 05-21-2010 09:10-0400 Body Temperature 97.5 [degF] Kate Fischer [facility] Internal Medicine Work Phone: 05-21-2010 09:10-0400 Body weight 66.23 kg Kate Fischer [facility] Internal Medicine Work Phone: 05-21-2010 09:10-0400 BP Diastolic 62 mm[Hg] Kate Fischer [facility] Internal Medicine Work Phone: Comment on above: Patient Position: Sitting; Cuff Location : Left Arm; Cuff Size: Large 05-21-2010 09:10-0400 BP Systolic 112 mm[Hg] Kate Fischer [facility] Internal Medicine Work Phone: Comment on above: Patient Position: Sitting; Cuff Location : Left Arm; Cuff Size: Large 05-21-2010 09:10-0400 Pulse (Heart Rate) 80 /min Kate Fischer [facility] Work Phone: Comment on above: Pattern: Regular 05-21-2010 09:10-0400 Respiratory Rate 16 /min Kate Fischer [facility] Internal Medicine Work Phone: Comment on [...] 09:09-0400 Body Temperature 98.1 [degF] Kate Aaliyah [facility] Internal Medicine Work Phone: Comment on above: Method: Undefined 02-10-2009 09:09-0400 Body weight 65.32 kg Kate Fischer [facility] Internal Medicine Work Phone: 02-10-2009 09:09-0400 BP [...] Head Occipital-frontal circumference 0 cm Kate Fischer [facility]; [facility] Work [...] 15:31-0400 Body Temperature 98.3 [degF] Kate Fischer [facility] Internal Medicine Work Phone: Comment on above: Method: Undefined 11-10-2008 15:31-0400 Body weight 0 kg Kate Fischer [facility] Internal Medicine Work Phone: 11-10-2008 15:31-0400 BP Diastolic 58 mm[Hg] Kate Fischer [facility] Internal Medicine Work Phone: Comment on above: Patient Position: Sitting; Cuff Location : Left Arm; Cuff Size: Large 11-10-2008 15:31-0400 BP Systolic 112 mm[Hg] Kate Fischer [facility] Internal Medicine Work Phone: Comment on above: Patient Position: Sitting; Cuff Location : Left Arm; Cuff Size: Large 11-10-2008 15:31-0400 Head Circumference 0 cm Britta Acevedo [facility] Internal Medicine Work Phone: 11-10-2008 15:31-0400 Head Occipital-frontal circumference 0 cm Kate Fischer [facility]; [facility] Work Phone: 11-10-2008 15:31-0400 Height 0 cm Kate Fischer [facility] Internal Medicine Work Phone: 11-10-2008 15:31-0400 Pulse (Heart Rate) 100 /min Kate Fischer [facility] Work Phone: Comment on above: Pattern: Regular 11-10-2008 15:31-0400 Respiratory Rate 16 /min Kate Fischer [facility] Internal Medicine Work Phone: Comment on above: Pattern: Undefined 09-24-2008 11:53-0500 Body Temperature 98.3 [degF] Kate Fischer [facility] Internal Medicine Work Phone: Comment on above: Method: Undefined 09-24-2008 11:53-0500 Body weight 66.23 kg Kate Fischer [facility] Internal Medicine Work Phone: 09-24-2008 11:53-0500 BP Diastolic 74 mm[Hg] Kate Fischer [facility] Internal Medicine Work Phone: Comment on above: Patient Position: Sitting; Cuff Location : Right Arm; Cuff Size: Standard 09-24-2008 11:53-0500 BP Systolic 120 mm[Hg] Kate Fischer [facility] Internal Medicine Work Phone: Comment on above: Patient Position: Sitting; Cuff Location : Right Arm; Cuff Size: Standard 09-24-2008 11:53-0500 Head Circumference 0 cm Britta Acevedo [facility] Internal Medicine Work Phone: 09-24-2008 11:53-0500 Head Occipital-frontal circumference 0 cm Kate Fischer [facility] Internal Medicine; [facility] Work Phone: 09-24-2008 11:53-0500 Height 0 cm Kate Fischer [facility] Internal Medicine Work Phone: 09-24-2008 11:53-0500 Pulse (Heart Rate) 76 /min Kate Fischer [facility] Internal Medicine Work Phone: Comment on above: Pattern: Regular 09-24-2008 11:53-0500 Respiratory Rate 16 /min Kate Fischer [facility] Internal Medicine Work Phone: Comment on above: Pattern: Undefined 09-08-2008 10:53-0500 Body Temperature 98.3 [degF] Kate Fischer [facility] Internal Medicine Work Phone: Comment on above: Method: Undefined 09-08-2008 10:53-0500 Body weight 66.23 kg Kate Fischer [facility] Internal Medicine Work Phone: 09-08-2008 10:53-0500 BP Diastolic 62 mm[Hg] Kate Fischer [facility] Internal Medicine Work Phone: Comment on above: Patient Position: Sitting; Cuff Location : Right Arm; Cuff Size: Large 09-08-2008 10:53-0500 BP Systolic 112 mm[Hg] Kate Lagosgasper [facility] Internal Medicine Work Phone: Comment on above: Patient Position: Sitting; Cuff Location : Right Arm; Cuff Size: Large 09-08-2008 10:53-0500 Head Circumference 0 cm Britta Acevedo [facility] Internal Medicine Work Phone: 09-08-2008 10:53-0500 Head Occipital-frontal circumference 0 cm Kate Gaytanrosi [facility]; [facility] Work Phone: 09-08-2008 10:53-0500 Height 0 cm Kate Aaliyah [facility] Internal Medicine Work Phone: 09-08-2008 10:53-0500 Pulse (Heart Rate) 76 /min Kate Fischer [facility] Internal Medicine Work Phone: Comment on above: Pattern: Regular 09-08-2008 10:53-0500 Respiratory Rate 16 /min Kate Aaliyah [facility] Internal Medicine Work Phone: Comment on above: Pattern: Undefined 07-07-2008 14:22-0500 Body Temperature 96.7 [degF] Kate Aaliyah [facility] Internal Medicine Work Phone: Comment on above: Method: Undefined 07-07-2008 14:22-0500 Body weight 0 kg Kate Gaytanrosi [facility] Internal Medicine Work Phone: 07-07-2008 14:22-0500 BP Diastolic 62 mm[Hg] Kate Aaliyah [facility] Internal Medicine Work Phone: Comment on above: Patient Position: Sitting; Cuff Location : Right Arm; Cuff Size: Large 07-07-2008 14:22-0500 BP Systolic 114 mm[Hg] Kate Gaytanrosi [facility] Internal Medicine Work Phone: Comment on above: Patient Position: Sitting; Cuff Location : Right Arm; Cuff Size: Large 07-07-2008 14:22-0500 Head Circumference 0 cm Britta Acevedo [facility] Internal Medicine Work Phone: 07-07-2008 14:22-0500 Head Occipital-frontal circumference 0 cm Kate Aaliyah [facility]; [facility] Work Phone: 07-07-2008 14:22-0500 Height 0 cm Kateleonel Fischer [facility] Medicine Work Phone: 07-07-2008 14:22-0500 Pulse (Heart Rate) 80 /min Kate Fischer [facility] Work Phone: Comment on above: Pattern: Regular 07-07-2008 14:22-0500 Respiratory Rate 16 /min Kate Fischer [facility] Internal Medicine Work Phone: Comment on above: Pattern: Undefined 06-17-2008 11:17-0500 Body Temperature 98.4 [degF] Kate Fischer [facility] Internal Medicine Work Phone: Comment on above: Method: Undefined 06-17-2008 11:17-0500 Body weight 0 kg Kate Fischer [facility] Work Phone: 06-17-2008 11:17-0500 BP Diastolic 68 mm[Hg] Kate Fischer [facility] Medicine Work Phone: Comment on above: Patient Position: Sitting; Cuff Location : Right Arm; Cuff Size: Standard 06-17-2008 11:17-0500 BP Systolic 124 mm[Hg] Kate Fischer [facility] Internal Medicine Work Phone: Comment on above: Patient Position: Sitting; Cuff Location : Right Arm; Cuff Size: Standard 06-17-2008 11:17-0500 Head Circumference 0 cm Britta Acevedo [facility] Work Phone: 06-17-2008 11:17-0500 Head Occipital-frontal circumference 0 cm Kate Fischer [facility]; [facility] Work Phone: 06-17-2008 11:17-0500 Height 0 cm Kate Fischer [facility] Work Phone: 06-17-2008 11:17-0500 Pulse (Heart Rate) 88 /min Kate Fischer [facility] Work Phone: Comment on above: Pattern: Regular 06-17-2008 11:17-0500 Respiratory Rate 16 /min Kate Fischer [facility] Work Phone: Comment on above: Pattern: Undefined 09-11-2007 10:03-0500 Body Temperature 98.9 [degF] Kate Fischer [facility] Work Phone: Comment on above: Method: Oral 09-11-2007 10:03-0500 Body weight 0 kg Kate Fischer [facility] Work Phone: 09-11-2007 10:03-0500 BP Diastolic 60 mm[Hg] Kate Fischer [facility] Work Phone: Comment on above: Patient Position: Sitting; Cuff Location : Left Arm; Cuff Size: Standard 09-11-2007 10:03-0500 BP Systolic 90 mm[Hg] Kate Fischer [facility] Work Phone: Comment on above: Patient Position: Sitting; Cuff Location : Left Arm; Cuff Size: Standard 09-11-2007 10:03-0500 Head Circumference 0 cm Britta Curtis [facility] Internal Medicine Work Phone: 09-11-2007 10:03-0500 Head Occipital-frontal circumference 0 cm Kate Fischer [facility]; [facility] Work Phone: 09-11-2007 10:03-0500 Height 0 cm Kate Fischer [facility] Internal Medicine Work Phone: 09-11-2007 10:03-0500 Pulse (Heart Rate) 80 /min [facility] Work Phone: Comment on above: Pattern: Regular 09-11-2007 10:03-0500 Respiratory Rate 16 /min Kate Fischer [facility] Internal Medicine Work Phone: Comment on above: Pattern: Unlabored 07-04-2007 08:23-0500 Body Temperature 98.2 [degF] Kate Fischer [facility] Internal Medicine Work Phone: Comment on above: Method: Oral 07-04-2007 08:23-0500 Body weight 0 kg Kate Fischer [facility] Internal Medicine Work Phone: 07-04-2007 08:23-0500 BP Diastolic 78 mm[Hg] Kate Fischer [facility] Internal Medicine Work Phone: Comment on above: Patient Position: Sitting; Cuff Location : Left Arm; Cuff Size: Standard 07-04-2007 08:23-0500 BP Systolic 112 mm[Hg] Kate Fischer [facility] Internal Medicine Work Phone: Comment on above: Patient Position: Sitting; Cuff Location : Left Arm; Cuff Size: Standard 07-04-2007 08:23-0500 Head Circumference 0 cm Britta Curtis [facility] Internal Medicine Work Phone: 07-04-2007 08:23-0500 Head Occipital-frontal circumference 0 cm Kate Fischer [facility]; [facility] Work Phone: 07-04-2007 08:23-0500 Height 0 cm Kate Fischer [facility] Internal Medicine Work Phone: 07-04-2007 08:23-0500 Pulse (Heart Rate) 80 /min Kate Fischer [facility] Internal Medicine Work Phone: Comment on above: Pattern: Regular 07-04-2007 08:23-0500 Respiratory Rate 16 /min Kate Fischer [facility] Internal Medicine Work Phone: Comment on [...] 10-17-2006 10:58-0500 Height 0 cm Aishwarya Matos [facility] Internal Medicine Work Phone: 10-17-2006 10:58-0500 Pulse (Heart Rate) 66 /min Aishwarya Matos [facility] Internal Medicine Work Phone: Comment on above: Pattern: Regular 10-17-2006 10:58-0500 Respiratory Rate 16 /min Aishwarya Matos [facility] Internal Medicine Work Phone: Comment on above: Pattern: Unlabored Encounters Encounter Date Encounter Type Care Provider Facility Start: 04-17-2025 End: 04-17-2025 ambulatory Chalon Silvia [facility] Start: 04-10-2025 End: 04-10-2025 ambulatory Chalon Silvia Facility:[facility] Start: 04-04-2025 End: 04-04-2025 ambulatory Chalon Silvia Facility:[facility] Start: 04-04-2025 End: 04-04-2025 ambulatory Sonya Sellersony Facility:[facility] Start: 03-27-2025 End: 03-27-2025 ambulatory Chalon Silvia Facility:[facility] Start: 03-13-2025 End: 03-13-2025 ambulatory Chalon Silvia Facility:[facility] Start: 02-26-2025 End: 02-26-2025 ambulatory Chalon Silvia Facility:[facility] Start: 02-12-2025 End: 02-12-2025 ambulatory Chalon Silvia Facility:[facility] Start: 02-05-2025 End: 02-05-2025 ambulatory Chalon Silvia Facility:[facility] Start: 02-05-2025 End: 02-05-2025 ambulatory Chalon Silvia Facility:[facility] Start: 01-13-2025 End: 01-13-2025 ambulatory Chalon Silvia Facility:[facility] Start: 12-18-2024 End: 12-18-2024 ambulatory Chalon Silvia Facility:[facility] Start: 12-03-2024 End: 12-03-2024 ambulatory [facility] Start: 11-20-2024 End: 11-20-2024 ambulatory Chalon Silvia Facility:[facility] Start: 10-22-2024 End: 10-22-2024 ambulatory Chalon Silvia Facility:[facility] Start: 10-17-2024 End: 10-17-2024 ambulatory Chalon Silvia Facility:[facility] Start: 10-14-2024 End: 10-14-2024 ambulatory Chalon Silvia [facility] Start: 10-12-2024 End: 10-12-2024 Emergency department patient visit Clem Michael Facility:[facility] Start: 09-26-2024 End: 09-26-2024 ambulatory Chalon Silvia [facility] Start: 09-19-2024 End: 09-19-2024 ambulatory Chalon Silvia [facility] Start: 09-19-2024 End: 09-19-2024 ambulatory Chalon Silvia Facility:[facility] Start: 09-10-2024 End: 09-10-2024 ambulatory Chalon Silvia [facility] Start: 09-06-2024 ambulatory Helen Ha Facility :[facility] Start: 09-05-2024 End: 09-05-2024 ambulatory Chalon Silvia [facility] Start: 07-30-2024 End: 07-30-2024 ambulatory Chalon Silvia Facility:[facility] Start: 06-11-2024 End: 06-11-2024 ambulatory Ana Cristina Sus SET UP PERSON Facility:[facility] Start: 06-07-2024 End: 06-07-2024 ambulatory Alisia Foster [facility] Start: 06-07-2024 End: 06-07-2024 ambulatory Sonya Benoit Facility:[facility] Start: 05-13-2024 ambulatory Ana Cristina Sus SET UP PERSON Facil [facility] Start: 10-26-2023 End: 10-26-2023 ambulatory [facility] Work Phone: Start: 10-26-2023 End: 10-26-2023 Patient encounter procedure [facility] Work Phone: Start: 07-05-2023 End: 07-05-2023 ambulatory DO Alisia Foster Work Phone: [facility] Work Phone: Start: 07-05-2023 End: 07-05-2023 Patient encounter procedure DO Alisia Foster Work Phone: [facility] Start: 06-07-2023 End: 06-07-2023 Patient encounter procedure DO Alisia Foster Work Phone: [facility], [facility] Work Phone: Start: 05-29-2023 End: 05-29-2023 Patient encounter procedure DO Alisia Foster Work Phone: [facility] Work Phone: Start: 02-20-2023 End: 02-20-[address] Britta Acevedo Work Phone: [facility] Work Phone: Start: 02-20-2023 End: 02-20-[address] Britat [facility] Work [facility]: Start: 02-20-2023 End: 02-20-[address] Britta Acevedo Work Phone: [facility] Work Phone: Start: 12-05-2022 End: 12-05-[address] Britta cAevedo Work Phone: [facility] Work Phone: Start: 05-26-2022 End: 05-26-[address] Britta Acevedo Work Phone: [facility] Work Phone: Start: 05-26-2022 End: 05-26-[address] Britta Acevedo Work Phone: [facility] Start: 04-26-2022 End: 04-26-[address] Britta Acevedo Work Phone: [facility] Work Phone: Start: 04-26-2022 End: 04-26-[address] Britta Acevedo Work Phone: [facility]atory, Spec[facility] Start: 04-26-2022 End: 04-26-[address] Britta Acevedo Work Phone: [facility] Start: 04-16-2022 Non-patient / Non-visit Dr. Britta Acevedo Work Phone: [facility] Start: 04-15-2022 Non-patient / Non-visit Dr. Britta Acevedo Work Phone: [facility] Start: 04-14-2022 Non-patient / Non-visit Dr. Britta Acevedo Work Phone: [facility] Start: 04-14-2022 End: 04-16-2022 Evaluation and management of inpatient Dr. Britta Acevedo Work Phone: [facility] Start: 04-08-2022 End: 04-08-[address] Britta Acevedo Work Phone: [facility] Work Phone: Start: 04-08-2022 End: 04-08-[address] Britt[facility]ved[facility] Start: 04-08-2022 End: 04-08-[address] Britta Acevedo Work Phone: [facility] Start: 04-01-2022 End: 04-01-[address] Britta Acevedo Work Phone: [facility] Start: 03-29-2022 End: 03-29-[address] Britta Acevedo Work Phone: [facility], [facility] Start: 03-25-2022 End: 03-25-[address] Britt[facility] Aceved[facility] Start: 03-25-2022 End: 03-25-[address] Britta Acevedo Work Phone: [facility] Start: 03-09-2022 End: 03-09-[address] Britta Acevedo Work Phone: [facility] Start: 02-25-2022 End: 02-25-[address] Britta Acevedo Work Phone: [facility] Start: 02-11-2022 End: 02-11-[address] Britta Acevedo Work Phone: [facility] Start: 01-28-2022 End: 01-28-[address] Britt[facility] Start: 01-26-2022 End: 01-26-[address] Britta Acevedo Work Phone: [facility] Start: 12-24-2021 End: 12-24-[address] Britta Acevedo Work Phone: [facility] Start: 11-26-2021 End: 11-26-[address] Britta Acevedo Work Phone: [facility] Start: 10-29-2021 End: 10-29-[address] Britta Acevedo Work Phone: [facility] Start: 10-01-2021 End: 10-01-[address] Britt[facility]ved[facility] Start: 10-01-2021 End: 10-01-[address] Britta Acevedo Work Phone: [facility] Start: 09-16-2021 End: 09-16-[address] Britt[facility] Start: 09-10-2021 End: 09-10-[address] Britta Acevedo Work Phone: [facility]-Ultrasound, WC Start: 09-09-2021 End: 09-09-[address] Britta Acevedo Work Phone: [facility]-Laboratory, OP Pavilion Start: 09-03-2021 Non-patient / Non-visit Dr. Britta Acevedo Work Phone: [facility] Start: 12-13-2016 End: 12-13-2016 Office outpatient visit 15 minutes Britta Lorenzo [facility] Start: 03-11-2016 End: 03-11-2016 Historical Summary Britta Lorenzo [facility] Start: 01-08-2016 End: 01-10-2016 Office outpatient visit 15 minutes Britta Lorenzo [facility] Start: 12-07-2015 End: 12-07-2015 Phone Encounter Britta Lorenzo [facility] Start: 12-04-2015 End: 12-06-2015 Office outpatient visit 25 minutes Britta Acevedo [facility] Start: 12-01-2015 End: 12-01-2015 Lab Order Britta Lorenzo [facility] Start: 08-12-2015 End: 08-12-2015 Office outpatient visit 25 minutes Britta Lorenzo [facility] Start: 02-23-2015 End: 02-23-2015 Office outpatient visit 25 minutes Britta Acevedo [facility] Start: 01-16-2015 End: 01-16-2015 Phone Encounter Britta Lorenzo [facility] Start: 10-24-2014 End: 10-24-2014 Office outpatient visit 15 minutes Britta Acevedo [facility] Start: 06-16-2014 End: 06-16-2014 Office outpatient visit 15 minutes Britta Acevedo [facility] Start: 05-13-2014 End: 05-13-2014 Phone Encounter Britta Lorenzo [facility] Start: 05-13-2014 End: 05-13-2014 Office outpatient visit 15 minutes Britta Acevedo [facility] Start: 04-02-2014 End: 04-02-2014 Office outpatient visit 25 minutes Britta Acevedo [facility] Start: 03-21-2014 End: 03-21-2014 Office outpatient visit 25 minutes Britta Acevedo [facility] Start: 05-22-2013 End: 05-23-2013 Patient encounter procedure Britta Acevedo [facility] Start: 08-03-2012 End: 08-03-2012 Office outpatient visit 15 minutes Brittamartina Rajputon [facility] Start: 07-12-2012 End: 07-12-2012 Patient encounter procedure Britta Acevedo [facility] Start: 06-22-2012 End: 06-22-2012 Office outpatient visit 15 minutes Britta Curtis [facility] Start: 10-24-2011 End: 10-24-2011 Office outpatient visit 25 minutes Britta Curtis [facility] Start: 07-15-2011 End: 07-15-2011 Office outpatient visit 25 minutes Britta Curtis [facility] Start: 02-18-2011 End: 02-18-2011 Patient encounter procedure Brittamartina Rajputon [facility] Start: 09-03-2010 End: 09-03-2010 Patient encounter procedure Britta Curtis [facility] Start: 08-10-2010 End: 08-10-2010 Office outpatient visit 15 minutes Britta Curtis [facility] Start: 06-30-2010 End: 06-30-2010 Patient encounter procedure Britta Curtis [facility] Start: 06-07-2010 End: 06-07-2010 Patient encounter procedure Brittamartina Rajputon [facility] Start: 05-21-2010 End: 05-21-2010 Patient encounter procedure Brittamartina Rajputon [facility] Start: 11-09-2009 End: 11-09-2009 Patient encounter procedure Britta Curtis [facility] Start: 11-05-2009 End: 11-05-2009 Patient encounter procedure Britta Curtis [facility] Start: 02-10-2009 End: 02-10-2009 Patient encounter procedure Britta Curtis [facility] Start: 11-10-2008 End: 11-10-2008 Patient encounter procedure Britta Curtis [facility] Start: 10-02-2008 End: 10-03-2008 Patient encounter procedure Brittamartina Rajputon [facility] Start: 09-30-2008 End: 09-30-2008 Office outpatient visit 10 minutes Britta Curtis [facility] Start: 09-24-2008 End: 09-24-2008 Patient encounter procedure Britta Curtis [facility] Start: 09-08-2008 End: 09-08-2008 Patient encounter procedure Britta Acevedo [facility] Start: 07-07-2008 End: 07-07-2008 Patient encounter procedure Britta Acevedo [facility] Start: 06-17-2008 End: 06-17-2008 Patient encounter procedure Britta Acevedo [facility] Start: 09-11-2007 End: 09-11-2007 Patient encounter procedure Britta Acevedo [facility] Start: 07-04-2007 End: 07-04-2007 Patient encounter procedure Britta Acevedo [facility] Start: 01-10-2007 End: 01-11-2007 Patient encounter procedure Britta Acevedo [facility] Start: 10-17-2006 End: 10-17-2006 Patient encounter procedure Britta Acevedo [facility] Start: 07-27-2006 End: 07-27-2006 Patient encounter procedure Britta Acevedo [facility] Start: 07-25-2006 End: 07-25-2006 Historical Summary Britta Acevedo [facility] Procedures Date Procedure Procedure Detail Performing Clinician Start: 10-26-2023 X-ray of cervical spine Start: 06-07-2023 Transvaginal echography DO Alisia garza Work Phone: Start: 06-07-2023 Pelvic echography DO Alisia Foster Work Phone: Start: 02-20-[address] Britta Acevedo Work Phone: Start: 04-26-2022 End: 04-26-2022 Brake Liner Office Visit Report Procedure Note: See Note; NOTES: [facility] [address] [place] [address] OFFICE VISIT Date of Service: 04/26/22 MR#: [id number] Acct: [id number] Name: DYLANPRISCILA MALAGON VERONICATOOKRISSY Rep #: [id number] : 1985 Provider: Dr. 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 Date Name GA/Weeks Outcome Route Bth Weight Gen Labor Lgth Anesthesia Del Locatn Provider FOB 07/16/20 Meron 40 live - full term Female epidural [facility] Tiffany 04/14/22 Maira 38 live - full term 8lbs 5oz Female spinal [facility] Sonya Menard Delivery Date: 07/16/20 Last [...] DO Work Phone: Start: 04-08-2022 End: 04-13-2022 Brake Liner Office Visit Report Procedure Note: See Note; NOTES: [facility] [address] [place] [address] OFFICE VISIT Date of Service: 04/08/22 MR#: [id number] Acct: [id number] Name: PRISCILA NGO Rep #: [id number] : 1985 Provider: Dr. Sonya valentino MD Age/Sex: 36/F [place] [facility] Status: Signed Intake Vital Signs 10/29/21 15:52 [...] at home: Yes additional social history: Trang- Sales Account Executive Patient Nilda Marley 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 Date Name GA/Weeks Outcome Route Bth Weight Gen Labor Lgth Anesthesia Del Locatn Provider FOB 07/16/20 Meron 40 live - full term Female epidural [facility] Tiffany Delivery Date: 07/16/20 Last Updated [...] and meclazine ordered. [place] 01/26/22 -???-???-???-???-???-???-?? ?-???-???-???-???-???- 28w 0d [...] Acevedo Work Phone: Start: 04-01-2022 End: 04-01-2022 Brake Liner Office Visit Report Procedure Note: See Note; NOTES: [facility] [address] [place] [address]. [address] [place] [address] OFFICE VISIT Date of Service: 04/01/22 MR#: [id number] Acct: [id number] Name: PRISCILA NGO Rep #: [id number] : 1985 Provider: Dr. Sonya valentino MD Age/Sex: 36/F Location[place] [facility] Status: Signed Intake Vital Signs 10/29/21 15:52 04/01/22 15:51 04/01/22 15:52 Height 5 ft 5 in 5 ft 5 in 5 ft 5 in Weight: 160 lb BMI 26.6 BP 120/72 Intake Visit Reasons: 37WK OB Chief Complaint: est ob Ehs Specialist Required: No Is patient in pain?: No [...] at home: Yes additional social history: Trang- Sales Account Executive Patient Nilda Marley 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 Date Name GA/Weeks Outcome Route Bth Weight Gen Labor Lgth Anesthesia Del Locatn Provider FOB 07/16/20 Meron 40 live - full term Female epidural [facility] Tiffany Delivery Date: 07/16/20 Last Updated [...] and meclazine ordered. [place] going [place] 01/26/22 -???-???-???-???-???-???-?? ?-???-???-???-???-???- 28w 0d [...] With Biometrics Procedure Note: See Note; NOTES: [facility] Imaging Services [address] [place] [address] OB Limited With Biometrics MR#: [id number] Acct: [id number] Name: PRISCILA NGO Rep #: [id number] : 1985 F 36 From: Arvind Alvarado PCP: Dr. Britta Acevedo DO Status: REG CLI Study: OB Limited With Biometrics Date of Exam: 03/29 Exam# [id number] Ordering Dr: Sonya Benoit STUDY: SECOND AND [...] 15:36 EDT Reading Location ID and State: [facility] / [place] , Service support , CC: Dr. Britta Acevedo DO; Dr. Sonya Benoit MD Transitional Care Manager: Signed Britta Acevedo DO Work Phone: Start: 03-25-2022 End: 03-25-2022 Brake Liner Office Visit Report Procedure Note: See Note; NOTES: [facility] [place] [address] [place] [address] OFFICE VISIT Date of Service: 03/25/22 MR#: [id number] Acct: [id number] Name: PRISCILA NGO Rep #: [id number] : 1985 Provider: Dr. Sonya valentino MD Age/Sex: 36/F Location[place] [facility] Status: Signed Intake Vital Signs 10/29/21 15:52 03/25/22 14:50 Height 5 ft 5 in 5 ft Intake Visit Reasons: 36WK OB Ehs Specialist Required: No Is patient in pain?: No [...] at home: Yes additional social history: Trang- Sales Account Executive Patient Nilda Marley 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 Date Name GA/Weeks Outcome Route Bth Weight Gen Labor Lgth Anesthesia Del Locatn Provider FOB 07/16/20 Meron 40 live - full term Female epidural [facility] Tiffany Delivery Date: 07/16/20 Last Updated [...] and meclazine ordered. [place] going [place] 01/26/22 -???-???-???-???-???-???-?? ?-???-???-???-???-???- 28w 0d [...] POC Urinalysis 2 Dip (Clinic) Today 03/25/22 [id number] <Electronically signed by Sonya Benoit MD> Date Sonya Benoit MD Cosigner Signature: Date (if applicable) CC: Britta Acevedo DO Work Phone: Start: 03-09-2022 End: 03-12-2022 Brake Liner Office Visit Report Procedure Note: See Note; NOTES: [facility] [address] [facility] [place] [address] OFFICE VISIT Date of Service: 03/09/22 MR#: [id number] Acct: [id number] Name: PRISCILA NGO Rep #: [id number] : 1985 Provider: RASTA avendaño Age/Sex: 36/F Location: [facility] Status: Signed Intake Vital Signs 10/29/21 15:52 03/09/22 15:49 03/09/22 15:50 Height 5 ft 5 in 5 ft 5 in 5 ft Weight: 157 lb BMI 26.1 BP 112/60 Intake Visit Reasons: 34WK OB Chief Complaint: est ob Ehs Specialist Required: No Is patient in pain?: No [...] at home: Yes additional social history: Trang- Sales Account Executive Patient Munguiaalejandra Marley 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 Date Name GA/Weeks Outcome Route Bth Weight Infant Gen Labor Lgth Anesthesia Del [facility] Provider FOB 07/16/20 Meron 40 live - full term Female epidural [facility] Tiffany Delivery Date: 07/16/20 Last Updated [...] and meclazine ordered. will be going [place] 01/26/22 -???-???-???-???-???-???-?? ?-???-???-???-???-???- 28w 0d [...] Continue routine care and follow up. 03/12/22 [id number] <Electronically signed by Kate Small DO> Date Kate Small 03/09/22 1616<Electronically signed by Ana Cristina Roe NP SET UP PERSON-C> Cosigner Signature: Date (if applicable) Ana Cristina Roe NP SET UP PERSON-C CC: Britta Acevedo DO Work Phone: Start: 02-25-2022 End: 02-25-2022 Brake Liner Office Visit Report Procedure Note: See Note; NOTES: [facility] [address] [place] [address] OFFICE VISIT Date of Service: 02/25/22 MR#: [id number] Acct: [id number] Name: PRISCILA NGO Rep #: [id number] : 1985 Provider: Dr. Sonya valentino MD Age/Sex: 36/F Location[place] [facility] Status: Signed Intake Vital Signs 10/29/21 15:52 02/25/22 15:41 02/25/22 15:41 Height 5 ft 5 in 5 ft 5 ft Weight: 158 lb BMI 30.8 BP 124/62 H Intake Visit Reasons: 32WK OB Chief Complaint: est ob Ehs Specialist Required: No Is patient in pain?: No [...] at home: Yes additional social history: Trang- Sales Account Executive Patient Nilda Marley 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 Date Name GA/Weeks Outcome Route Bth Weight Gen Labor Lgth Anesthesia Del Locatn Provider FOB 07/16/20 Meron 40 live - full term Female epidural [facility] Tiffany Delivery Date: 07/16/20 Last Updated [...] and meclazine ordered. [place] going [place] 01/26/22 -???-???-???-???-???-???-?? ?-???-???-???-???-???- 28w 0d [...] Office Urine Protein Negative Last Edit by Julai Schaffer on 02/25/22 15:47 Coding Level of [...] DO Work Phone: Start: 02-11-2022 End: 02-11-2022 Brake Liner Office Visit Report Procedure Note: See Note; NOTES: [facility] [address] [place] [address] OFFICE VISIT Date of Service: 02/11/22 MR#: [id number] Acct: [id number] Name: PRISCILA NGO Rep #: [id number] : 1985 Provider: Dr. Sonya valentino MD Age/Sex: 36/F [place] [facility] [place]: Signed Intake Vital Signs 10/29/21 15:52 02/11/22 16:03 02/11/22 16:04 Height 5 ft 5 in 5 ft 5 ft Weight: 153 lb 6 oz BMI 29.9 BP 112/76 Intake Visit Reasons: 30WK OB Ehs Specialist Required: No Is patient in pain?: No [...] at home: Yes additional social history: Trang- Sales Account Executive Patient Munguiaalejandra Marley 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 Date Name GA/Weeks Outcome Route Bth Weight Infant Gen Labor Lgth Anesthesia Del Locatn Provider FOB 07/16/20 Meron 40 live - full term Female epidural [facility] Tiffany Delivery Date: 07/16/20 Last Updated by: Sathya English arrest of descent HPI 30WK OB Details: PRISCILA NGO is a 36 [...] POC Urinalysis 2 Dip (Clinic) Today 02/11/22 9785 <Electronically signed by Sonya Benoit MD> Date Sonya Oh Signature: Date (if applicable) CC: Britta Curtis DO Work Phone: Start: 01-26-2022 End: 03-20-2022 Brake Liner Office Visit Report Procedure Note: See Note; NOTES: [facility] [address] [place] [address] OFFICE VISIT Date of Service: 01/26/22 MR#: [id number] Acct: [id number] Name: PRISCILA NGO Rep #: [id number] : 1985 Provider: Dr. Kate Steele DO Age/Sex: 36/F [place] [facility] [place]: Signed Intake Vital Signs 10/01/21 15:22 01/26/22 15:28 Height 5 ft 5 in 5 ft Weight: 149 lb 8 oz BMI 29.2 BP 126/76 H Intake Visit Reasons: 27 WK OB/GLUCOSE Ehs Specialist Required: No Is patient in pain?: No [...] Bth [facility]20 Meron 40 live - full term Female epidural [facility] Tiffany Delivery Date: 07/16/20 Last Updated [...] and meclazine ordered. will be going [place] 01/26/22 -???-???-???-???-???-???-?? ?-???-???-???-???-???- 28w 0d [...] Route Admin Location Lot Number Expiration Date [facility] Manufactu rer 1,500 unit IM left gluteus [id number] 04/09/23 9007-5820-15 [employer] Results POC Urinalysis 2 Dip (Clinic) Office Urine Glucose Negative Last Edit by Brittany Murphy on 01/26/22 15:41 Office Urine Protein Negative Last Edit by Brittany Murphy on 01/26/22 15:41 Immunizations Adacel(Tdap Adolesn/Adult)(PF) Performing Provider: Kate Small DO Administered by: Brittany Murphy on 01/26/22 15:49 Dose Route Admin Location Lot Number Expiration Date [facility] Manufactu rer 0.5 mL IM Left Deltoid [id number] 09/03/23 34071-905-45 [employer] VIS Given Date VIS Provided VIS [...] Kate Small DO> Date [facility] Signature: Date (if applicable) CC: Britta Acevedo DO Work Phone: Start: 12-24-2021 End: 12-24-2021 Brake Liner Office Visit Report Procedure Note: See Note; NOTES: [facility] [address] [place] [address] OFFICE VISIT Date of Service: 12/24/21 MR#: [id number] Acct: [id number] Name: PRISCILA NGO Rep #: [id number] : 1985 Provider: Dr. Kate Steele DO Age/Sex: 36/F [place] [facility] [place]: Signed Intake Vital Signs 12/24/21 10:50 Height 5 ft Weight: 148 lb 2 oz BMI 28.9 BP 118/78 Intake Visit Reasons: 23 WK OB Ehs Specialist Required: No Is patient in pain?: No Allergies amoxicillin Adverse Reaction (Mild, Verified 12/24/21 10:51) Vomiting erythromycin base Adverse Reaction (Mild, Verified 12/24/21 10:51) Vomiting azithromycin Adverse Reaction (Verified 12/24/21 10:51) Vomiting Medications albuterol sulfate 90 mcg/actuation aerosol inhaler 1 puff INHALATION Q6H PRN 07/29/19 [History Confirmed 12/24/21] PNV 212-qhyvf-qioaw-3-fish oil 2 ea PO DAILY 07/15/20 [History [...] at home: Yes additional social history: Trang- Sales Account Executive Patient Nilda Marley 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 Date Name GA/Weeks Outcome Route Bth Weight Gen Labor Lgth Anesthesia Del [facility] Provider FOB 07/16/20 Meron 40 live - full term Female epidural [facility] Tiffany Delivery Date: 07/16/20 arrest of [...] and meclazine ordered. will be going to [place] for vacation [employer] First Trimester First Trimester: [...] DO Work Phone: Start: 11-26-2021 End: 11-26-2021 Brake Liner Office Visit Report Procedure Note: See Note; NOTES: [facility] [address] [place] [address]. [address] [place] [address] OFFICE VISIT Date of Service: 11/26/21 MR#: [id number] Acct: [id number] Name: PRISCILA NGO Rep #: [id number] : 1985 Provider: Dr. Sonya valentino MD Age/Sex: 36/F [place] [facility] [place]: Signed Intake Vital Signs 11/26/21 16:04 Height 5 ft 5 in Weight: 143 lb 4 oz BMI 23.8 BP 114/70 Intake Visit Reasons: 19 WK OB Ehs Specialist Required: No Is patient in pain?: No Allergies amoxicillin Adverse Reaction (Mild, Verified 11/26/21 16:04) Vomiting erythromycin base Adverse Reaction (Mild, Verified 11/26/21 16:04) Vomiting azithromycin Adverse Reaction (Verified 11/26/21 16:04) Vomiting Medications albuterol sulfate 90 mcg/actuation aerosol inhaler 1 puff INHALATION Q6H PRN 07/29/19 [History Confirmed 11/26/21] PNV 528-bdncb-gbkwj-3-fish oil 2 ea PO DAILY 07/15/20 [History [...] at home: Yes additional social history: Trang- Sales Account Executive Patient Nilda Marley 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 Date Name GA/Weeks Outcome Route Bth Weight Gen Labor Lgth Anesthesia Del Locatn Provider FOB 07/16/20 Meron 40 live - full term Female epidural [facility] Tiffany Delivery Date: 07/16/20 arrest of [...] POC Urinalysis 2 Dip (Clinic) Today 11/26/21 4869 <Electronically signed by Sonya Benoit MD> Date Sonya Oh Signature: Date (if applicable) CC: Britta Curtis DO Work Phone: Start: 10-29-2021 End: 10-29-2021 Brake Liner Office Visit Report Procedure Note: See Note; NOTES: [facility] [address] [place], [place] [address] OFFICE VISIT Date of Service: 10/29/21 MR#: [id number] Acct: [id number] Name: PRISCILA NGO Rep #: [id number] : 1985 Provider: Dr. Kate Steele DO Age/Sex: 36/F [place] [facility] [place]: Signed Intake Vital Signs 10/29/21 15:52 Height 5 ft 5 in Weight: 144 lb 6 oz BMI 24.0 BP 118/78 Intake Visit Reasons: 15 WK OB Ehs Specialist Required: No Is patient in pain?: No Allergies amoxicillin Adverse Reaction (Mild, Verified 10/29/21 15:53) Vomiting erythromycin base Adverse Reaction (Mild, Verified 10/29/21 15:53) Vomiting azithromycin Adverse Reaction (Verified 10/29/21 15:53) Vomiting Medications albuterol sulfate 90 mcg/actuation aerosol inhaler 1 puff INHALATION Q6H PRN 07/29/19 [History Confirmed 10/29/21] PNV 275-nrksr-dshwn-3-fish oil 2 ea PO DAILY 07/15/20 [History [...] at home: Yes additional social history: Trang- Sales Account Executive Patient Nilda Marley 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 Date Name GA/Weeks Outcome Route Bth Weight Infant Gen Labor Lgth Anesthesia Del Locatn Provider FOB 07/16/20 Meron 40 live - full term Female epidural [facility] Tiffany Delivery Date: 07/16/20 arrest of [...] DO Work Phone: Start: 10-01-2021 End: 10-01-2021 Brake Liner Office Visit Report Procedure Note: See Note; NOTES: [facility] [address] [place] [address] OFFICE VISIT Date of Service: 10/01/21 MR#: [id number] Acct: [id number] Name: PRISCILA NGO Rep #: [id number] : 1985 Provider: Dr. Sonya valentino MD Age/Sex: 36/F Location[place] [facility] [place]: Signed Intake Vital Signs 10/01/21 15:22 Height 5 ft 5 in Weight: 144 lb BMI 23.9 BP 114/80 Intake Visit Reasons: 11WK OB Chief Complaint: est ob Ehs Specialist Required: No Is patient in pain?: No Allergies amoxicillin Adverse Reaction (Mild, Verified 10/01/21 15:22) Vomiting erythromycin base Adverse Reaction (Mild, Verified 10/01/21 15:22) Vomiting azithromycin Adverse Reaction (Verified 10/01/21 15:22) Vomiting Medications albuterol sulfate 90 mcg/actuation aerosol inhaler 1 puff INHALATION Q6H PRN 07/29/19 [History Confirmed 10/01/21] PNV 819-ivcas-xrlhh-3-fish oil 2 ea PO DAILY 07/15/20 [History [...] at home: Yes additional social history: Trang- Sales Account Executive Patient Nilda Marley 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 Date Name GA/Weeks Outcome Route Bth Weight Infant Gen Labor Lgth Anesthesia Del Locatn Provider FOB 07/16/20 Meron 40 live - full term Female epidural [facility] Tiffany Delivery Date: 07/16/20 arrest of [...] Acevedo Work Phone: Start: 09-16-2021 End: 09-16-2021 Brake Liner Office Visit Report Procedure Note: See Note; NOTES: [facility] [address] [place], [place] [id number] OFFICE VISIT Date of Service: 09/16/21 MR#: [id number] Acct: [id number] Name: PRISCILA NGO Rep #: [id number] : 1985 Provider: Dr. Sonya valentino MD Age/Sex: 36/F [place] [facility] [place]: Signed Intake Vital Signs 09/16/21 11:12 09/16/21 11:20 Height 5 ft 5 in Weight: 139 lb BMI 23.1 BP 120/86 H Intake Visit Reasons: NOB LMP 07/14 Chief Complaint: NEW OB LMP 07/14 Ehs Specialist Required: No Is patient in pain?: No Allergies amoxicillin Adverse Reaction (Mild, Verified 09/09/21 15:34) Vomiting erythromycin base Adverse Reaction (Mild, Verified 09/09/21 15:34) Vomiting azithromycin Adverse Reaction (Verified 09/09/21 15:34) Vomiting Medications albuterol sulfate 90 mcg/actuation aerosol inhaler 1 puff INHALATION Q6H PRN 07/29/19 [History Confirmed 09/16/21] PNV 672-folkr-adqgw-3-fish oil 2 ea PO DAILY 07/15/20 [History [...] at home: Yes additional social history: Trang- Sales Account Executive Patient Nilda Marley 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 Date Name GA/Weeks Outcome Route Bth Weight [facility] 07/16/20 Meron 40 live - full term Female epidural [facility] Tiffany Delivery Date: 07/16/20 arrest of [...] allergies (prn med), Drug/latex allergies/reactions (as noted), Assembler Type Bar And Segment surgery (c section) and Operations/hospitalizations (c section) [...] w/Preg US Procedure Note: See Note; NOTES: [facility] Imaging Services [address] [place] [id number] Transvaginal w/Preg US MR#: [id number] Acct: [id number] Name: PRISCILA NGO Rep #: [id number] : 1985 F 36 From: Shiraz ewing MD PCP: Dr. Britta Acevedo DO Status: REG CLI Study: Transvaginal w/Preg US Date of Exam: 09/10/21 Exam# [id number] Ordering Dr: Ana Cristina Roe SET UP PERSON SET UP PERSON -C INDICATION: well being EXAMINATION: US OB [...] CC: RASTA Roe; Dr. Britta Acevedo DO Transitional Care Manager: Signed Britta Acevedo DO Work Phone: Start: 09-09-2021 End: 09-09-2021 Office Visit Report Procedure Note: See Note; NOTES: [address] [place] [address] OFFICE VISIT Date of Service: 09/09/21 MR#: [id number] Acct: [id number] Patient: PRISCILA NGO Rep # : [id number] : 1985 Provider: RASTA avendaño Age/Sex: 36/F [place] [facility] [place]: Signed Intake Vital Signs 09/09/21 15:33 Height 5 ft 5 in Weight: 140 lb BMI 23.3 Intake Visit Reasons: Rhogam Chief Complaint: est ob Ehs Specialist Required: No Is patient in pain?: No Allergies amoxicillin Adverse Reaction (Mild, Verified 09/09/21 15:34) Vomiting erythromycin base Adverse Reaction (Mild, Verified 09/09/21 15:34) Vomiting azithromycin Adverse Reaction (Verified 09/09/21 15:34) Vomiting Medications albuterol sulfate 90 mcg/actuation aerosol inhaler 1 puff INHALATION Q6H PRN 07/29/19 [History Confirmed 09/09/21] PNV 713-lislc-ynawa-3-fish oil 2 ea PO DAILY 07/15/20 [History Confirmed 09/09/21] Is last menstrual period known: Yes Post menopausal: No Patient : Yes Current gender identity: female Office Procedures Injections Procedure performed by: Sathya English Lot number: [id number] Valving Machine Operator: [id number] date: 07/09/22 Dose of injection: 1500U Site 2 of injection: left gluteal IM Medication Given: Yes Results POC Urinalysis Dip (Clinic) Office Urine Color Straw Last Edit by Sathya Egnlish on 09/09/21 15:50 Office Urine Clarity Hazy Last Edit by Sathya English on 09/09/21 15:50 Office Urine Glucose Negative Last Edit by Sathya English on 09/09/21 15:50 Office Urine Ketones Negative Last Edit by Sathya English on 09/09/21 15:50 Off Ur Spec Limestone 1.005 Last Edit by Sathya English on [...] <Electronically signed by Ana Cristina Roe NP SET UP PERSON-C> Date Ana Cristina Oh Signature: Date (if applicable) CC: Britta Acevedo DO Work Phone: Start: 09-09-[address] Britta Acevedo Work Phone: Start: 06-16-2021 End: 06-16-2021 Brake Liner Office Visit Report Procedure Note: See Note; NOTES: [facility] 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 Details: PRISCILA NGO is a 36 year old who presents for IUD removal. Father passed from cancer last week, although receiving chemo was doing well and was actually in [place] when became ill, was able to get [...] Weight Infant Gen Labor Lgth Anesthesia Del [facility] Provider FOB 07/16/20 Meron 40 live - full term Female epidural [facility] Tiffany Delivery Date: 07/16/20 arrest of [...] Z30.432 Plan - Ana Cristina Roe NP, SET UP PERSON-C: Continue PNV Condoms until ready to conceive Call with first positive test. RTO prn 06/16/21 0958 <Electronically signed by Ana Cristina Roe NP SET UP PERSON-C> Date Ana Cristina Roe NP SET UP PERSON-C Cosigner Signature: Date (if applicable) CC: Britta Acevedo DO Work Phone: Start: 10-14-2020 End: 10-14-2020 Brake Liner Office Visit Report Procedure Note: See Note; NOTES: [facility] [address] [place] [address]. [address] [place] [address] OFFICE VISIT Date of Service: 10/14/20 MR#: [id number] Acct: [id number] Name: PRISCILA NGO Rep #: [id number] : 1985 Provider: Dr. 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 NGO is a [...] 40 live - full term Female epidural [facility] Tiffany Delivery Date: 07/16/20 arrest of [...] B37.2 Plan - Ana Cristina Roe NP, SET UP PERSON-C IUD properly placed Rx clotrimazole RTO annual exam, prn Medications New: clotrimazole 1% 1 applic topical BID 2 weeks 30 grams 0RF Coding Level of Care Code Off vis,est,level 3 Diagnoses IUD check up Z30.431 Monilial intertrigo B37.2 10/14/20 1714 <Electronically signed by Aparna Allen MD> Date Aparna Allen MD 10/14/20 1208<Electronically signed by Ana Cristina Roe NP SET UP PERSON-C> Cosigner Signature: Date (if applicable) Ana Cristina Roe NP SET UP PERSON-C CC: Britta Acevedo DO Work Phone: Start: 09-04-2020 End: 09-04-2020 Brake Liner Office Visit Report Procedure Note: See Note; NOTES: [facility] [address] [place] [address] OFFICE VISIT Date of Service: 09/04/20 MR#: [id number] Acct: [id number] Name: PRISCILA NGO Rep #: [id number] : 1985 Provider: Dr. 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 Date Name GA/Weeks Outcome Route Bth Weight Infant Gen Labor [facility] 07/16/20 Meron 40 live - full term Female epidural [facility] Tiffany Delivery Date: 07/16/20 arrest of [...] for IUD insertion Z30.430 Additional Codes IUD (83681) 09/04/20 1215 <Electronically signed by Aparna Allen MD> Date Aparna Allen MD Cosigner Signature: Date (if applicable) CC: Britta Acevedo DO Work Phone: Start: 08-21-2020 End: 08-21-2020 Brake Liner Office Visit Report Procedure Note: See Note; NOTES: [facility] [address] [place] [address] OFFICE VISIT Date of Service: 08/21/20 MR#: [id number] Acct: [id number] Name: PRISCILA NGO Rep #: [id number] : 1985 Provider: Dr. Aparna eller MD Age/Sex: 35/F [place] [facility] [place]: Signed Intake Vital Signs 08/21/20 Height 5 ft 5 in 08/21/20 Weight: 148 lb 2 oz 08/21/20 BP 128/86 H Intake Visit Reasons: 6WK PP / DECLINED iud. 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 Date Name GA/Weeks Outcome Route Bth Weight Gen Labor Lgth Anesthesia Del Locatn Provider FOB 07/16/20 Meron 40 live - full term Female epidural [facility] Tiffany Delivery Date: 07/16/20 arrest of descent Sathya English Depression Screen PHQ-2/9 If score is 2 or greater, continue Source: Developed by Drs. Girma Hannah, Leticia Mijares, Rohith Cross and colleagues, with an educational ute from [employer]. Scoring: Total Score Depression Severity Action 1-4 [...] and depression. Feeding: Breast Menses resumed: Yes Reasnor since delivery: No Emotional Support: Yes Last [...] DO Work Phone: Start: 08-05-2020 End: 08-05-2020 Brake Liner Office Visit Report Procedure Note: See Note; NOTES: [facility] [address] [place] [address]. [address] [place] [address] OFFICE VISIT Date of Service: 08/05/20 MR#: [id number] Acct: [id number] Name: PRISCILA NGO Rep #: [id number] : 1985 Provider: Dr. 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 [place] [address] OFFICE VISIT Date of Service: 07/28/20 MR#: [id number] Acct: [id number] Name: PRISCILA NGO Rep #: [id number] : 1985 Provider: RASTA avendaño Age/Sex: 35/F [place] [facility] Status: Signed Intake Vital Signs 07/28/20 Weight: 144 lb 07/28/20 BP 118/74 Intake Visit Reasons: 2WK INCISION CHECK Ehs Specialist Required: No Accompanied by: self Is patient [...] @ 10:00 by Ana Cristina Roe NP, SET UP PERSON-C) Smoking Status: Never smoker alcohol intake: current details: pre- substance use type: does not use caffeine: Yes what type of physical activity do you participate in: walking frequency: 3-4 times per week seatbelt use: always do you feel safe at home: Yes 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 Provider FOB 07/16/20 Meron 40 live - full term Female epidural [facility] Tiffany Delivery Date: 07/16/20 arrest of [...] <Electronically signed by Ana Cristina Roe NP SET UP PERSON-C> Date Ana Cristina Roe NP SET UP PERSON-C Cosigner Signature: Date (if applicable) CC: Britta Acevedo DO Work Phone: Start: 07-10-2020 End: 07-14-2020 OB Limited With Biometrics Comments: See Note; NOTES: [facility] Imaging Services [address] [place] [address] OB Limited With Biometrics MR#: [id number] Acct: [id number] Name: PRISCILA NGO Rep #: [id number] : 1985 F 35 From: Federica Wellington MD PCP: Dr. Britta Acevedo, DO Status: REG CLI Study: OB Limited With Biometrics Date of Exam: 07/10 Exam# [id number] Ordering Dr: Sonya Benoit STUDY: SECOND AND [...] Britta Acevedo DO; Dr. Sonya Benoit MD Transitional Care Manager: Signed Britta Acevedo Start: 07-10-2020 End: 07-10-2020 Brake Liner Office Visit Report Comments: See Note; NOTES: [facility] [address] [place] [address]. [address] [place] [address] OFFICE VISIT Date of Service: 07/10/20 MR#: [id number] Acct: [id number] Name: PRISCILA NGO Rep #: [id number] : 1985 Provider: Dr. 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 Influenza vaccine administered Z23 [id number] 6. 35 weeks gestation of Z3A.35 electronic [...] CC: Britta Acevedo Start: 07-02-2020 End: 07-02-2020 Brake Liner Office Visit Report Comments: See Note; NOTES: [facility] [address] [place] [address] OFFICE VISIT Date of Service: 07/02/20 MR#: [id number] Acct: [id number] Name: PRISCILA NGO Rep #: [id number] : 1985 Provider: Dr. 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 Influenza vaccine administered Z23 [id number] 5. Rh negative status during O26.899; Z67.91 [...] CC: Britta Acevedo Start: 06-26-2020 End: 06-26-2020 Brake Liner Office Visit Report Comments: See Note; NOTES: [facility] [address] [place] [address] OFFICE VISIT Date of Service: 06/26/20 MR#: [id number] Acct: [id number] Name: NGOPRISCILA MALAGON ALBERT Rep #: [id number] : 1985 Provider: Dr. 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 Influenza vaccine administered Z23 [id number] 6. 35 weeks gestation of Z3A.35 electronic [...] CC: Britta Acevedo Start: 06-17-2020 End: 06-17-2020 Brake Liner Office Visit Report Comments: See Note; NOTES: [facility] [address] [place] [address] OFFICE VISIT Date of Service: 06/17/20 MR#: [id number] Acct: [id number] Name: PRISCILA NGO Rep #: [id number] : 1985 Provider: Dr. 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 Influenza vaccine administered Z23 [id number] 6. 35 weeks gestation of Z3A.35 electronic [...] CC: Britta Acevedo Start: 06-05-2020 End: 06-05-2020 Brake Liner Office Visit Report Comments: See Note; NOTES: [facility] [address] [place] [address] OFFICE VISIT Date of Service: 06/05/20 MR#: [id number] Acct: [id number] Name: PRISCILA NGO Rep #: [id number] : 1985 Provider: Dr. 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 Influenza vaccine administered Z23 [id number] 2. Rh negative status during O26.899; Z67.91 [...] CC: Britta Acevedo Start: 05-22-2020 End: 05-22-2020 Brake Liner Office Visit Report Comments: See Note; NOTES: [facility] [address] [place] [address]. [address] [place], [place] [id number] OFFICE VISIT Date of Service: 05/22/20 MR#: [id number] Acct: [id number] Name: PRISCILA NGO Rep #: [id number] : 1985 Provider: Dr. 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 Influenza vaccine administered Z06 [id number] Orders Orders: POC Urinalysis 2 Dip (Clinic) Today Coding Level of Care Code OB Routine Diagnoses Z34.90 Supervision of normal first Z34.00 Asthma J45.909 Rh negative status during O26.899; Z67.91 Influenza vaccine administered Z23 05/22/20 1528 <Electronically signed by Sonya Benoit MD> Date Sonya Benoit MD Cosigner Signature: Date (if applicable) CC: Britta Acevedo Start: 05-06-2020 End: 05-06-2020 Brake Liner Office Visit Report Comments: See Note; NOTES: [facility] [address] [place] [address] OFFICE VISIT Date of Service: 05/06/20 MR#: [id number] Acct: [id number] Name: PRISCILA NGO Rep #: [id number] : 1985 Provider: Dr. 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 History 1 Elective abortions Hx Para [...] no acute distress, well developed, well groomed [facility] Head: normal to inspection Resp Effort Inspection: [...] Murphy on 05/06/20 15:59 Immunizations Flucelvax Quad 6214-2439 (PF) Performing Provider: Aparna Allen MD Administered by: Brittany Murphy on 05/06/20 16:00 Dose Route Admin Location Lot Number Expiration Date NDC Manufactu rer 60 mcg IM Left Deltoid [id number] 01/23/21 96071-314-02 SEQIRUS VIS Given Date VIS Provided VIS [...] CC: Britta Acevedo Start: 04-24-2020 End: 04-24-2020 Brake Liner Office Visit Report Comments: See Note; NOTES: [facility] [address] [place] [address]. [address] [place] [address] OFFICE VISIT Date of Service: 04/24/20 MR#: [id number] Acct: [id number] Name: NGOPRISCILA MALAGON ALBERT Rep #: [id number] : 1985 Provider: Dr. 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 History 1 Elective abortions Hx Para [...] Date NDC Manufactu rer 1,500 unit IM [facility] [id number] 10/19/21 9731-8665-03 [facility] Results POC Urinalysis 2 Dip (Clinic) Office Urine Glucose Negative Last Edit by Eleni English on 04/24/20 13:53 Office Urine Protein Negative Last Edit by Eleni English on 04/24/20 13:53 Immunizations Boostrix Tdap Performing Provider: Sonya Benoit MD Administered by: Eleni English on 04/24/20 13:53 Dose Route Admin Location Lot Number Expiration Date NDC Manufactu rer 0.5 mL IM Left Deltoid [id number] 01/31/22 62359-969-14 [employer] VIS Given Date VIS Provided VIS [...] CC: Britta Acevedo Start: 03-24-2020 End: 03-24-2020 Brake Liner Office Visit Report Comments: See Note; NOTES: [facility] [address] [place] [address] [address] [place] [address] OFFICE VISIT Date of Service: 03/24/20 MR#: [id number] Acct: [id number] Name: PRISCILA NGO Rep #: [id number] : 1985 Provider: Dr. 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 [place] [address] OFFICE VISIT Date of Service: 02/10/20 MR#: [id number] Acct: [id number] Name: PRISCILA NGO Rep #: [id number] : 1985 Provider: Dr. 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 OB Visit LAVAREZ Calculator Estimated Delivery Date Method Current WG [...] transfusions, D (Rh) Sensitized, Seasonal allergies, Breast, Assembler Type Bar And Segment surgery, Operations/hospitalizations , Anesthetic complications, History of [...] Sonya Benoit MD> Date Sonya Benoit MD [facility] Signature: Date (if applicable) CC: Britta Acevedo Start: 07-29-2019 End: 08-01-2019 Brake Liner Office Visit Report Comments: See Note; NOTES: [facility] [address] [place] [address]. 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 [facility] 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 History 0 Elective abortions Hx Para [...] no acute distress, well developed, well groomed [facility] Head: normal to inspection, normocephalic Ears: [...] 12-21-2015 Echocardiogram Complete Comments: See Note; NOTES: [facility] Cardiovascular Services [address] [place] [address] Echo Complete 12/21/15 1315 MR#: [id number] Acct: [id number] Name: PRISCILA PRICE Rep #: [id number] : 1985 30 From: Stiven Huerta MD Attending Dr: Brenda Bradley DO Status: [facility] Ordering Dr: Brenda Bradley DO Date: 12/21/15 Location: [facility] Sex: F C Admitted: Reason For [...] Dictated: 12/21/15 1315 Date Transcribed: 12/21/15 170 Transitional Care Manager: Signed Brenda Bradley Work Phone: Start: 12-04-2015 End: 12-04-2015 Ecg routine ecg w/least 12 lds w/i&r [MEASUREMENTS ANALYSIS] Date of Test: 12/04/2015 12:20:06; Heart Rate: 54; AK Interval: 142; QRS: 84; QT Interval: 410; Corrected QT Interval (QTc): 400; P Wave [place]: 44; QRS Wave [place]: 57; T Wave [place]: 58; Blood Pressure: 100/78 [ECG DIAGNOSTIC STATEMENTS] Date of Test: 12/04/2015 12:20:06; Summary: Sinus Bradycardia WITHIN NORMAL LIMITS Brenda Bradley Work Phone: Group B Streptococcu s Culture Dr. Britat Acevedo Work Phone: H/O: section History of C-sectio n Dr. Britta Acevedo Work Phone: Urine culture Dr. Britta saldivar Work Phone: Plan of Treatment Date Care Activity Detail Author Start: 04-22-2025 ambulatory Ambulatory Facility:[facility] Start: 04-16-2022 Patient discharge [facility] Work Phone: Start: 04-15-2022 Application of abdom inal corset [facility] Work Phone: Start: 04-14-2022 End: 04-15-2022 [facility] Work Phone: Start: 04-14-2022 Notification of physician [facility] Work Phone: Start: 04-14-2022 Post-anesthesia assessment [facility] Work Phone: Start: 04-14-2022 Administration of medication [facility] Work Phone: Start: 04-14-2022 Ambulation therapy management [facility] Work Phone: Start: 04-14-2022 Application of device [facility] Work Phone: Start: 04-14-2022 Application of intermittent pneumatic compression device [facility] Work Phone: Start: 04-14-2022 Assessment of risk o f venous thromboembolism [facility] Work Phone: Start: 04-14-2022 Catheterization of vein [facility] Work Phone: Start: 04-14-2022 Deep breathing and coughing exercises [facility] Work Phone: Start: 04-14-2022 Exercises [facility] Work Phone: Start: 04-14-2022 Measuring intake and output [facility] Work Phone: Start: 04-14-2022 Notification of physician [facility] Work Phone: Start: 04-14-2022 Procedure discontinued [facility] Work Phone: Start: 04-14-2022 Provision of activit y privileges [facility] Work Phone: Start: 04-14-2022 Vital signs measurements [facility] Work Phone: Start: 04-14-2022 Wound care [facility] Work Phone: Start: 04-14-2022 Application of abdom inal corset [facility] Work Phone: Start: 04-14-2022 section Repeat C-Sect ion (Not Applicable) [facility] Work Phone: Start: 04-14-2022 Admission procedure [facility] Work Phone: Start: 06-30-2017 End: 06-30-2017 Bacteria genital culture [facility] Start: 06-30-2017 End: 06-30-2017 Appointment Appointment [facility] Start: 12-13-2016 Procedure [...] ell count each CBC WITH MANUAL DIFF (81928) [facility] Work Phone: Start: 01-16-2015 Assay of thyroid stimulating hormone tsh TSH (43716) [facility]; [facility] Work Phone: Start: 01-16-2015 TSH Qn TSH (22701) [facility] Work Phone: Start: 01-16-2015 Comprehensive metabo lic panel Metabolic Panel, Comprehensive (84500) [facility] Work Phone: Start: 01-16-2015 Lipid panel Lipid Panel (60724) [facility] Work Phone: Start: [...] Fibrin dgradj produc ts d-dimer quantitative D-Dimer (42456) [facility] Work Phone: Comment on above: stat call results to call center supervisor at [facility] Start: 03-21-2014 Patient Education Asthma: rajinder [...] tuberculos is intradermal SKIN TEST INTRADERMAL TB (50084) [facility] Work Phone: Start: 09-24-2008 Hepatic function panel HEPATIC FUNCTION PANEL (27598) [facility] Work Phone: Start: 09-24-2008 Lipid panel LIPID PANEL (80655) [facility] Work Phone: Start: 09-08-2008 Assay of thyroid stimulating hormone tsh TSH (56572) [facility]; [facility] Work Phone: Start: 09-08-2008 TSH Qn TSH (89789) [facility] Work Phone: Start: 09-08-2008 Lipid panel LIPID PANEL (86603) [facility] Work Phone: Start: 09-08-2008 Sedimentation rate r bc non-automated SED RATE ERYTHROCYTE (91399) [facility] Work Phone: Start: 09-08-2008 C-reactive protein C-REACTIVE PROTEIN (01645) [facility]; [facility] Work Phone: Start: 09-08-2008 CRP [Mass/Vol] C-REACTIVE PRO TEIN (84417) [facility] Work Phone: Start: 09-08-2008 Rheumatoid factor quantitative RHEUMATOID FACTOR-QUANT (57351) [facility] Work Phone: Start: 09-08-2008 Antinuclear antibodi es josefina JOSEFINA (ANTINUCLEAR ANTIBODY) (74942) [facility]; [facility] Work Phone: Start: 09-08-2008 Nuclear Ab IF (S) [Titer] JOSEFINA (ANTINUCLEAR ANTIBODY) (44993) [facility] Work Phone: Start: 09-08-2008 Comprehensive metabo lic panel METABOLIC PANEL, COMPREHENSIVE (88362) [facility] Work Phone: Start: 09-08-2008 Blood count manual c ell count each CBC WITH MANUAL DIFF (81289) [facility] Work Phone: Start: 07-07-2008 Provider Instruction s for Treatment Antibiotic Usage Education - Female [facility] Work Phone: Start: 06-17-2008 Provider Instruction s for Treatment Antibiotic Usage Education - Female [facility] Work Phone: Start: 09-11-2007 Provider Instruction s for Treatment Antibiotic Usage Education - Female [facility] Work Phone: Patient referral [facility] Work Phone: [facility] Work [...] Immunization Date Immunization Notes Care Provider Angel [facility] 05-29-2023 influenza, injectabl e, quadrivalent, preservative free DO Alisia Foster Work Phone: [facility] 05-26-2022 influenza, injectabl e, quadrivalent, preservative free DO Alisia Foster Work Phone: [facility] 05-26-2022 influenza, seasonal, injectable Dr. Britta Acevedo Work Phone: [facility] 01-26-2022 tetanus toxoid, reduced diphtheria toxoid, and acellular pertussis vaccine, adsorbed Dr. Britta Acevedo Work Phone: [facility] 05-06-2020 Flucelvax Quad (PF) (flu vac qs 2019(4 yr up)CD(PF)) 60 mcg ([address] Britta Acevedo Work Phone: [facility] Work Phone: 05-06-2020 influenza, injectable,quadrivalen t, preservative free, pediatric Dr. Britta Acevedo Work Phone: [facility] 04-24-2020 tetanus toxoid, reduced diphtheria toxoid, and acellular pertussis vaccine, adsorbed Dr. Britta Acevedo Work Phone: [facility] 04-24-2020 diphtheria, tetanus toxoids and acellular pertussis vaccine, unspecified formulation Dr. Britta Acevedo Work Phone: [facility] Work Phone: 01-10-2007 human papilloma viru s vaccine, quadrivalent Britta Acevedo [facility] Work Phone: Comment on above: Lot #: [id number] on date: 06/22Amount given: 0.5 mlRoute: IMSite given: Lt Dltd.Given by: Pooja Blair LPN 10-17-2006 HPV, unspecified formulation Britta Lorenzo [facility] Work Phone: Comment on above: 1st dose given 07/26 Payers Date Payer Category Payer Self-pay [id number] 2023 Private Health Insurance [id number] 2023 Unknown [id number] 2015 Private Health Insurance [facility] [id number] 1985 Unknown [id number] 2.16.840.1.291042.3.579.2.4 79 Unknown Unknown [id number] Unknown [facility] PACKAGE PLAN [id number] Unknown [id number] 2.16.840.1.026553.3.579.2.4 62 Unknown [id number] 2.16.840.1.746831.3.579.2.4 62 Unknown [id number] 2.16.840.1.512873.3.579.2.4 62 Unknown [id number] 2.16.840.1.376702.3.579.2.4 62 Unknown [id number] 2.16.840.1.245384.3.579.2.4 62 Unknown [id number] 2.16.840.1.916990.3.579.2.4 62 Unknown [id number] 2.16.840.1.515653.3.579.2.4 62 Unknown [id number] 2.16.840.1.779895.3.579.2.4 62 Unknown [id number] 2.16.840.1.810641.3.579.2.4 62 Unknown [id number] 2.16.840.1.519759.3.579.2.4 62 Unknown [id number] 2.16.840.1.096723.3.579.2.4 62 Unknown [id number] 2.16.840.1.205581.3.579.2.4 62 Unknown [id number] 2.16.840.1.956370.3.579.2.4 62 Unknown [id number] 2.16.840.1.436812.3.579.2.4 62 Unknown [id number] 2.16.840.1.465575.3.579.2.4 62 Unknown [id number] 2.16.840.1.919692.3.579.2.4 62 Unknown [id number] 2.16.840.1.222522.3.579.2.4 62 Unknown [id number] 2.16.840.1.923605.3.579.2.4 62 Unknown [id number] 2.16.840.1.242809.3.579.2.4 62 Unknown [id number] 2.16.840.1.736892.3.579.2.4 62 Unknown [id number] 2.16.840.1.279334.3.579.2.4 62 Unknown [id number] 2.16.840.1.199761.3.579.2.4 62 Unknown [id number] 2.16.840.1.082437.3.579.2.4 62 Unknown [id number] 2.16.840.1.455756.3.579.2.4 62 Unknown [id number] 2.16.840.1.551458.3.579.2.4 62 Unknown [id number] 2.16.840.1.512721.3.579.2.4 62 Unknown [id number] 2.16.840.1.868528.3.579.2.4 62 Unknown [id number] 2.16.840.1.605021.3.579.2.4 62 Unknown [id number] 2.16.840.1.244075.3.579.2.4 62 Social History Date Type Detail Facility Caffeine Use Caffeine Use [facility] Work Phone: Comment on above: rarely Current Work/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: Current Work/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: [facility] 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 Living Situation: Living Situation: Compr [facility] Work Phone: Comment on above: single Tobacco use: Tobacco use: [facility] Work Phone: Start: 10-29-2021 End: 05-29-2023 Tobacco smoking status NHIS Unknown if ever smoked [facility] Start: 1985 Sex Assigned At Female W [facility] Current Work/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: Current Work/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: [facility]; [facility] 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 Living Situation: Living Situation: Compr ehensive Internal Medicine; [facility] Work Phone: Comment on above: single Tobacco use: Tobacco use: [facility]; [facility] Work Phone: Goals Date Patient Goal Desired Activity /State Mental Status Date Assessment Result Facility 04-14-2022 Cognitive function Voice/Name [facility] Work Phone: Clinical Notes Note Date & [...] Supervision of other normal acute [facility] Work Phone: Evaluation note* Diagnosis [...] Supervision of other normal acute [facility] Work Phone: Evaluation note* Diagnosis [...] Supervision of other normal acute [facility] Work Phone: evaluation note* Diagnosis [...] Supervision of other normal acute [facility] Work Phone: Evaluation note* Diagnosis [...] Supervision of other normal resolved [facility] Work Phone: Evaluation note* Diagnosis [...] Supervision of other normal acute [facility] Work Phone: Evaluation note* Diagnosis [...] resolved care and examination noneactive [facility] Work Phone: Evaluation note* Diagnosis [...] Encounter for IUD insertion noneactive [facility] Work Phone: Evaluation note* Diagnosis Onset Date Resolution Status Acute otitis media, right ac storm Acute sinusitis, unspecified acute Laryngitis acute Urinary tract infection with hematuria acute [facility] Work Phone: Evaluation note* Diagnosis Onset Date Resolution Status Anxiety acute Breakthrough bleeding with IUD acute Encounter for routine gynecological examination noneactive [facility] Work Phone: Evaluation noteNo assessment information available [facility] Work Phone: Instructions* Name Dates Details How to access health informa tion online Indication:UTI symptoms Start:13-Dec-2016 Instruction Type:Patient Education How to access health informa tion online - Detail Indication:UTI symptoms Start:13-Dec-2016 Instruction Type:Patient Education Patient Instructions Indication:UTI symptoms Start:13-Dec-2016 Instruction Type:Provider Instructions for Treatment How to access health informa tion online Indication:Paroxysmal supraventricular tachycardia seen on lunchroom monitor Start:08-Jan-2016 Instruction Type:Patient Education How to access health informa tion online - Detail Indication:Paroxysmal supraventricular tachycardia seen on lunchroom monitor Start:08-Jan-2016 Instruction Type:Patient Education Patient Instructions Indication:Paroxysmal supraventricular tachycardia seen on lunchroom monitor Start:08-Jan-2016 Instruction Type:Provider Instructions for Treatment [...] tion online Indication:Paroxysmal supraventricular tachycardia seen on lunchroom monitor Start:08-Jan-2016 Instruction Type:Patient Education How to access health informa tion online - Detail Indication:Paroxysmal supraventricular tachycardia seen on lunchroom monitor Start:08-Jan-2016 Instruction Type:Patient Education Patient Instructions Indication:Paroxysmal supraventricular tachycardia seen on lunchroom monitor Start:08-Jan-2016 Instruction Type:Provider Instructions for Treatment [...] tract infection with hematuria 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) Excessive and frequent menstruation with irregular Reason for Visit Anxiety Breakthrough bleeding with IUD Encounter for routine gynecological examination Chief Complaint Neck pain, with radi culopathy Advance Directives No Advanced Directives Records Found Advance Directive Response Recorded Date/ Time Living Will No July 15 12:55pm Power of Group Home Manager No July 15, 2020 12:55pm Advance Directive Response Recorded Date/ Time Living Will No April 14 10:44am Power of Group Home Manager No April 14, 2022 10:44am Advance Directive Response Recorded Date/ Time Living Will No April 14 9:44am Power of Group Home Manager No April 14, 2022 9:44am Summary Purpose [...] content) DATE CREATED AUTHOR 12/06/2024 [facility] DATE CREATED AUTHOR AUTHOR'S PAUL GROSS 04/19/2025 [facility] FOR RECORDS PERTAINING TO PATIENTS [...] BE BASED ON THE PRIMARY CLINICAL RECORDS. [facility], [facility]. provides no warranty or guarantee of the accuracy or completeness of information in this document.
[2025-04-22] MEDS: Lactated Ringers 1,000 ML 999 ML IV (05:45)
--- NOTE | 2025-04-22 06:00 | HP.PCM.OB_ITS ---
HPI - General General Date of Admission: 04/22/25 HPI Narrative JEANETH RICHARDSON, is a 39 F who presents for RLTCS Maternal Data Information ALVAREZ Calculator Estimated Delivery Date Method Current WG Current Estimate 04/27/25 LMP (Certain) 39w 2d PFSH [facility] Medical History (Updated 04/22/25 @ 05:37 by Stacey Rivera) Asthma Anxiety Acute sinusitis, unspecified SVT (supraventricular tachycardia) Rh negative status during Home Medications ?Medication ?Instructions ?Recorded ?Last Taken ?Type Saccharomyces boulardii 250 mg 250 mg PO ONCE 06/07/24 Unknown History capsule (Daily Probiotic (S. boulardii)) multivitamin no.47-iron fum 27 1 cap PO DAILY see prov ider 06/07/24 04/21/25 08:00 History mg-folate no.1 1 mg-dha 300 mg capsule (PNV-DHA) pyridoxine (vitamin B6) 200 mg 200 mg PO BID see prov 09/19/24 04/19/25 21:00 History tablet famotidine 20 mg tablet (Pepcid) 20 mg PO BID see prov id #60 tabs 12/18/24 04/21/25 08:00 Rx albuterol sulfate 90 mcg/actuation 1 puff inhalation O NCE PRN see 04/17/25 03/17/25 History aerosol inhaler provider buspirone 5 mg tablet 5 mg PO BID see provid 04/1704/22/25 00:00 History docusate sodium 100 mg capsule 100 mg PO BID see provi d 04/17/25 04/21/25 08:00 History (Colace) meclizine 12.5 mg tablet 12.5 mg PO BID motion sickne ss 04/17/25 04/21/25 08:00 History Allergy/AdvReac Type Severity Reaction Status Date / Time amoxicillin AdvReac Mild Vomiting Verified 04/22/25 05:31 erythromycin base AdvReac Mild Vomiting Verified 04/22/25 05:31 azithromycin AdvReac Vomiting Verified 04/22/25 05:31 Family History Father auto immune disorder psoriatic arthritis. Cancer multiple tumors with mets, no definitive primary. Possibly melanoma Heart disease AFIB Mother Diabetes Grandmother Kidney disease Aunt Heart disease Breast cancer, Onset Age: 70 Brother auto immune disorder Surgical History Delivery by section History of wisdom tooth extraction, class II edentulism Social History adopted: No household members: spouse and children number of children: 2 current occupational status: employed current occupation: [employer] - [employer] current occupational exposures/hazards: No pets and animals: Yes pets and animals: dog(s) history of recent travel: No sexually active: Yes Smoking Status: Never smoker alcohol intake: current details: Not while substance use type: does not use well-balanced diet: daily or most days caffeine: Yes Type: coffee eating out: rarely or never during the past year weight has: remained stable what type of physical activity do you participate in: walking frequency: 5-6 times per week duration: 45-60 minutes/day tish/church: Jain seatbelt use: always do you feel safe at home: Yes 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 Date Name GA/Weeks Outcome Route Bth Weight Gen Labor Lgth Anesthesia Del Locatn Provider FOB 07/16/20 Meron 40 live - full term 7lbs 13oz Fe male epidural [facility] Tiffany Derian 04/14/22 Maira 38 live - full term 8lbs 5oz Female spinal [facility] Sonya Menard Delivery Date: 07/16/20 Last Updated by: Mariana English arrest of descent Delivery Date: 04/14/22 Last [facility] Details Expected Delivery Route/Plan R C/S with Plans Covid status: [] Flu vaccine: [] Tdap vaccine: given 02/05/25 Rhogam: given 02/05/25 LARC form signed: yes Problem list reviewed and updated with the most current plan of care details and appropriate orders placed. movement and labor precautions reviewed. Relevant counseling for the gestational age provided. Continue routine care and follow up unless otherwise noted in visit notes/problem list details OB Flowsheet Initial Weight: 137 lb Date -?-?-?-?-?-?-?-?-?-?-?-?- EGA Weight BP Urine Prot -?-?-?-?-?-?-?-?-?-?-?-?- Glucose FHR FuHt Pres Dilation -?-?-?-?-?-?-?-?-?-?-?-?- Effaced St Visit Note 09/19/24 -?-?-?-?-?-?-?-?-?-?-?-?- 8w 4d 137 lb 2 oz (+2 oz) 134/75 -?-?-?-?-?-?-?-?-?-?-?-?- 182 -?-?-?-?-?-?-?-?-?-?-?-?- KW-CRL cons with dates. declines NIPT. desires repeat c/s with SM 10/14/24 -?-?-?-?-?-?-?-?-?-?-?-?- 12w 1d 141 lb 2 oz (+4 lb 2 oz) 137/74 Negative -?-?-?-?-?-?-?-?-?-?-?-?- Negative 171 -?-?-?-?-?-?-?-?-?-?-?-?- KW-work in for E R follow up. had spotting over the weekend and Dx with UTI KW-work in for ER follow up. had spotting over the weekend and Dx with UTI. Had rhogam in ER. spotting has decreased but not totally gone. culture still pending. FHT and movement noted on US. KW-work in for ER follow up. had spotting over the weekend and Dx with UTI. Had rhogam in ER. spotting has decreased but not totally gone. culture still pending. FHT and movement noted on US. anatomy US ordered. 10/22/24 -?-?-?-?-?-?-?-?-?-?-?-?- 13w 2d 140 lb (+3 lb) 135/73 Negative -?-?-?-?-?-?-?-?-?-?-?-?- Negative 165 -?-?-?-?-?-?-?-?-?-?-?-?- SM- no vb crmapi ng now 11/20/24 -?-?-?-?-?-?-?-?-?-?-?-?- 17w 3d 145 lb 8 oz (+8 lb 8 oz) 130/75 Negative -?-?-?-?-?-?-?-?-?-?-?-?- Negative 150 -?-?-?-?-?-?-?-?-?-?-?-?- SM- no vb lof cr amping 12/18/24 -?-?-?-?-?-?-?-?-?-?-?-?- 21w 3d 150 lb (+13 lb) 111/75 Trace -?-?--?-?-?-?-?-?-?-?-?-?- Negative 150 -?-?-?-?-?-?-?-?-?-?-?-?- SM- no vb lof co increased anxiety 01/13/25 -?-?-?-?-?-?-?-?-?-?-?-?- 25w 1d 155 lb 4 oz (+18 lb 4 oz) 130/74 Negative -?-?-?-?-?-?-?-?-?-?-?-?- Negative 145 -?-?-?-?-?-?-?-?-?-?-?-?- SM- no vb lof go od fm no regular ctx scheduled cs 02/05/25 -?-?-?-?-?-?-?-?-?-?-?-?- 28w 3d 160 lb (+23 lb) 112/72 Negative -?-?-?-?-?-?-?-?-?-?-?-?- Negative 154 28 -?-?-?-?-?-?-?-?-?-?-?-?- MH-No lof, vb. G ood FM. Rhogam and tdap given. Lar 02/26/25 -?-?-?-?-?-?-?-?-?-?-?-?- 31w 3d 165 lb (+28 lb) 107/70 Negative -?-?-?-?-?-?-?-?-?-?-?-?- Negative 160 31 -?-?-?-?-?-?-?-?-?-?-?-?- SM- no vb lof go od fm no reuglar ctx 03/13/25 -?-?-?-?-?-?-?-?-?-?-?-?- 33w 4d 167 lb 2 oz (+30 lb 2 oz) 129/77 Negative -?-?-?-?-?-?-?-?-?-?-?-?- Negative 145 34 -?-?-?-?-?-?-?-?-?-?-?-?- Sm- no vb lof go od fm n oregular ctx 03/27/25 -?-?-?-?-?-?-?-?-?-?-?-?- 35w 4d 168 lb 2 oz (+31 lb 2 oz) 124/79 Negative -?-?-?-?-?-?-?-?-?-?-?-?- Negative 140 35 -?-?-?-?-?-?-?-?-?-?-?-?- SM- no vb lof go od fm no reuglar ctx 04/04/25 -?-?-?-?-?-?-?-?-?-?-?-?- 36w 5d 167 lb 9 oz (+30 lb 9 oz) 137/81 -?-?-?-?-?-?-?-?-?-?-?-?- 140 36 Cephalic 1 -?-?-?-?-?--?-?-?-?-?-?-?- Sm- no vb lof go od fm irregular ctx 04/10/25 -?-?-?-?-?-?-?-?-?-?-?-?- 37w 4d 168 lb 7 oz (+31 lb 7 oz) 125/80 -?-?-?-?-?-?-?-?-?-?-?-?- 140 37 Cephalic 1.5 -?-?-?-?-?-?-?-?-?-?-?-?- 50 -3 SM- no vb lof good fm no regular ctx 04/17/25 -?-?-?-?-?-?-?-?-?-?-?-?- 38w 4d 170 lb 7 oz (+33 lb 7 oz) 135/83 Negative -?-?-?-?-?-?-?-?-?-?-?-?- Negative 140 38 Cephalic 1 .5 -?-?-?-?-?-?-?-?-?-?-?-?- 60 -2 SM- no vb lof good fm n oregular ctx preop consent NST FHR Rate Baby A Baseline: 130 Variability:: Moderate Accelerations:: 15 x 15 Decelerations:: None NST Reactive:: Yes FHR Category:: Category I Uterine Activity:: irregular ROS Constitutional Constitutional: Reports systems reviewed and no addt'l complaints, except as documented Eyes Eyes: Denies change in vision ENT HEENT: Reports systems reviewed and no addt'l complaints, except as documented; Denies headache(s) Cardiovascular Cardiovascular: Reports systems reviewed and no addt'l complaints, except as documented; Denies chest pain or dyspnea Respiratory/Chest Respiratory/Chest: Reports systems reviewed and no addt'l complaints, except as documented Gastrointestinal Gastrointestinal: Reports systems reviewed and no addt'l complaints, except as documented; Denies abdominal pain Genitourinary Genitourinary: Reports systems reviewed and no addt'l complaints, except as documented, contractions Details: present (irregular) and movement Details: present; Denies dysuria or genital lesions Musculoskeletal Musculoskeletal: Reports systems reviewed and no addt'l complaints, except as documented Neurologic Neurologic: Reports systems reviewed and no addt'l complaints, except as documented Endocrine Endocrinology: Reports systems reviewed and no addt'l complaints, except as documented Vital Signs Vital Signs Vital Signs: 04/22/25 05:37 04/22/25 05:37 04/22/25 05:37 Temperature Temperature Source Temporal Pulse Rate 117 H Respiratory Rate Blood Pressure 135/60 H Blood Pressure Mean BP Systolic 135 BP Diastolic 60 Blood Pressure Source Blood Pressure Position Blood Pressure Location Pulse Ox Oxygen Delivery Method 04/22/25 05:37 04/22/25 05:37 04/22/25 05:37 Temperature Temperature Source Pulse Rate 119 H Respiratory Rate 16 Blood Pressure Blood Pressure Mean BP Systolic BP Diastolic Blood Pressure Source Blood Pressure Position Blood Pressure Location Pulse Ox 98 Oxygen Delivery Method 04/22/25 05:38 04/22/25 05:48 Temperature 97.5 F L 97.3 F L Temperature Source Temporal Pulse Rate 119 H Respiratory Rate 16 Blood Pressure 135/60 H Blood Pressure Mean 85 BP Systolic BP Diastolic Blood Pressure Source Monitor Blood Pressure Position Semi-Fowlers Blood Pressure Location Left Arm Pulse Ox 98 Oxygen Delivery Method Room Air Weight Weight: 171 lb 11.841 oz Body Mass Index (BMI) 28.5 Physical Exam Const alert, oriented x3, no apparent distress and healthy appearing HEENT normocephalic and moist oral mucous membranes Head and Scalp: atraumatic Neck full ROM, no lymphadenopathy, supple and thyroid normal General: trachea midline Lymph Lymphatic: no lymphadenopathy noted Chest inspection of chest normal Resp normal respiratory effort Cardio regular rate GI soft to palpation and non-tender GI Narrative: gravid Inspection: gravid external exam normal Manual OB Exam: estimated gestational size appropriate, presentation cephalic, dilated, effaced and station Extremity normal to inspection General Extremity: Negative for edema Skin no rashes or lesions noted Neuro no focal motor deficits and deep tendon reflexes 2+ bilaterally Motor Exam: strength 5/5 throughout and clonus absent Psych mental status grossly normal Labs Labs Labs: Blood Type AB NEGATIVE Antibody Screen NEGATIVE Hct 38.1 % (37-47) Hgb 12.8 g/dL (12.0-15.0) Obstetrics Ultrasound Syphilis Total Ab Nonreactive (Nonreactive) Rubella IgG Antibody Reactive (Nonreactive) Hep Bs Antigen Non-Reactive (Nonreactive) Hepatitis C Antibody Non-Reactive (Nonreactive) Chlamydia DNA (SOFIA) Negative (Negative) N.gonorrhoeae DNA (SOFIA) Negative (Negative) HIV 1&2 Antibody Nonreactive (Nonreactive) Glucose 1 Hr 50 gm 95 mg/dL (70-140) Rhogam given: Yes Assessment & Plan (1) Positive GBS test: COMMENT: GBS +, abx at delivery, rpt cs scheduled per (2) Chronic cough: (3) Sterilization: COMMENT: plan BS at time of cs (4) History of delivery, currently : COMMENT: x2 (2019 & 2021), requesting R C/S with SM (5) AMA (advanced maternal age) multigravida 35+: QUALIFIERS: Trimester: third trimester Qualified Code(s): O09.523 - Supervision of elderly multigravida, third trimester COMMENT: growth at 36 weeks and deliver at 39 (6) Supervision of high-risk : QUALIFIERS: Trimester: third trimester Qualified Code(s): O09.93 - Supervision of high risk , unspecified, third trimester COMMENT: PRR, , ALVAREZ 04/27/25, surprise PC: Meron & Maira, : Derian (7) : QUALIFIERS: Weeks of gestation: 38 weeks Qualified Code(s): Z3A.38 - 38 weeks gestation of COMMENT: Discussed genetic/carrier testing - declined. nl anatomy. (8) Anxiety: COMMENT: stable (9) Asthma: QUALIFIERS: Asthma severity: unspecified severity Asthma persistence: unspecified Asthma complication type: uncomplicated Qualified Code(s): J45.909 - Unspecified asthma, uncomplicated COMMENT: singular, ProAir stable controlled by PCP (10) Rh negative status during : QUALIFIERS: Trimester: third trimester Qualified Code(s): O26.893 - Other specified related conditions, third trimester; Z67.91 - Unspecified blood type, Rh negative COMMENT: AB-, rhogam prn with bleeding, 28 wk and pp, Given 02/05/25 (11) SVT (supraventricular tachycardia): COMMENT: no medications, self monitored PLAN: Plan After discussing the patient's diagnosis and treatment plan options, patient wishes to proceed with surgical management. I have discussed with the patient the risks, benefits, and alternatives of the procedure which include but are not limited to risks of anesthesia, bleeding, infection, possible damage to bowel, bladder, or surrounding vasculature which could lead to additional surgery to evaluate any complications. Patient agrees to procedure and wishes to proceed. ACOG/uptodate references given for additional information regarding procedure. UPDATE- I have seen the patient and performed any clinically relevant updates to the history and physical exam. Sonya Benoit MD
[2025-04-22 06:09] LABS: Hematocrit 37.1 % (37-47); Hemoglobin 12.9 g/dL (12.0-15.0); Immature Granulocytes Count 0.070 X10^3/uL (0.0-0.0); Mean Corp Hgb Conc 34.8 g/dL (32-36); Mean Corpuscular Volume 88.1 fL (81-99); Mean Platelet Vol. 12.8 fl (6.2-12.0); NRBC Flagged by Analyzer 0 % (0-5); Platelet Count 162 K/mm3 (150-450); RBC Distribution Width CV 13.2 % (11.6-14.6); RBC Distribution Width SD 41.6 fl (35.1-43.9); Red Blood Count 4.21 M/mm3 (4.2-5.4); White Blood Count 10.8 K/mm3 (4.4-11.0)
[2025-04-22 06:33] LABS: Syphilis Antibodies Nonreactive (Nonreactive)
[2025-04-22] MEDS: Lactated Ringers 1,000 ML 150 ML IV (06:34)
[2025-04-22] MEDS: Lactated Ringers 1,000 ML 1000 ML IV (07:15)
[2025-04-22] MEDS: Cefazolin 1 GM/5 ML Vial 2 GM IV (07:18)
[2025-04-22] MEDS: morphine PF (epidural) 5 MG/10 ML Vial IV (07:25)
[2025-04-22] MEDS: fentaNYL 100 MCG/2 ML Ampul 10 MCG EPIDURAL (07:25)
[2025-04-22] MEDS: fentaNYL 100 MCG/2 ML Ampul 25 MCG IV (07:56)
[2025-04-22] MEDS: Oxytocin 15 Units/NS 250ml 15 UNITS/250 ML IV.SOLN 83 UNITS IV (08:35)
--- NOTE | 2025-04-22 08:58 | OP.PCM_ITS ---
Assessment & Plan (1) Positive GBS test: COMMENT: GBS +, abx at delivery, rpt cs scheduled per (2) Chronic cough: (3) Sterilization: COMMENT: plan BS at time of cs (4) History of delivery, currently : COMMENT: x2 (2019 & 2021), requesting R C/S with (5) AMA (advanced maternal age) multigravida 35+: QUALIFIERS: Trimester: third trimester Qualified Code(s): O09.523 - Supervision of elderly multigravida, third trimester COMMENT: growth at 36 weeks and deliver at 39 (6) Supervision of high-risk : QUALIFIERS: Trimester: third trimester Qualified Code(s): O09.93 - Supervision of high risk , unspecified, third trimester COMMENT: PRR, , ALVAREZ 04/27/25, surprise PC: Deo, : Derian (7) : QUALIFIERS: Weeks of gestation: 38 weeks Qualified Code(s): Z3A.38 - 38 weeks gestation of COMMENT: Discussed genetic/carrier testing - declined. nl anatomy. (8) Anxiety: COMMENT: stable (9) Asthma: QUALIFIERS: Asthma severity: unspecified severity Asthma persistence: unspecified Asthma complication type: uncomplicated Qualified Code(s): J45.909 - Unspecified asthma, uncomplicated COMMENT: singular, ProAir stable controlled by PCP (10) Rh negative status during : QUALIFIERS: Trimester: third trimester Qualified Code(s): O26.893 - Other specified related conditions, third trimester; Z67.91 - Unspecified blood type, Rh negative COMMENT: AB-, rhogam prn with bleeding, 28 wk and pp, Given 02/05/25 (11) SVT (supraventricular tachycardia): COMMENT: no medications, self monitored (12) delivery delivered: COMMENT: RLTCS BS boy 39 (13) Status post bilateral salpingectomy: Maternal Data Information ALVAREZ Calculator Estimated Delivery Date Method Current WG Current Estimate 04/27/25 LMP (Certain) 39w 2d Final ALVAREZ Source: LMP Operative Report (OB) Procedure Details Date of Procedure: 04/22/25 Procedure Start Time: 07:37 Pre-Operative Diagnosis: Repeat Elective and Desires elective sterilization Post-Operative Diagnosis: Same as Pre-operative diagnosis Classification: Scheduled Type of Anesthesia: Spinal Special Medications: metherigne for atony Antibiotic Given: Ancef 2 grams IV x1 Drain: Delvalle to straight drain Estimated Blood Loss: 500 Fluids Replaced: crystalloid Findings Description of surgery: Spinal anesthesia was placed without difficulty. Delvalle catheter was placed. The patient was placed in the dorsal supine position with leftward tilt. Patient was prepped and draped in the normal sterile fashion. Pfannenstiel skin incision was made with the scalpel and carried through to the underlying layer of fascia with the scalpel. Fascia was nicked in the midline and the incision extended laterally. The rectus bellies were dissected off superiorly and inferiorly with out complication both sharply and bluntly. The peritoneum was entered digitally. The incision was stretched and a low transverse uterine incision was made with the scalpel. The infant's head was delivered atraumatically followed by the anterior and posterior shoulders without complication the rest of the delivered. The cord was clamped and cut and the infant was handed off to awaiting nurse. The placenta was delivered spontaneously immediately following and was noted to be intact and have a three- vessel cord. The uterus was exteriorized cleared of all clots and debris, and the incision was closed in a single layer closure using #1 Monocryl. The ovaries and fallopian tubes were noted to be within normal limits. Patient had desired sterilization and was counseled preoperatively regarding irreversibility and permanency. Therefore bilateral fallopian tubes were elevated and transected across using a LigaSure device starting proximally to distally without complication the entire fallopian tubes were removed. The uterus was returned to the maternal abdomen and gutters were cleared of all clots and debris. The peritoneum was closed with 3-0 Monocryl in a running fashion. Gloves were changed prior to fascial closure. Fascia was closed with 0 PDS in a running fashion. Subcutaneous tissue was copiously irrigated and the skin was closed with 3-0 Monocryl in a subcuticular fashion. Mepilex dressing was applied without complication. Patient was taken to recovery in stable condition. Surgical findings: n luterus tubes ovaries Presentation: Vertex Amniotic Membrane Rupture Type: Artificial Amniotic Fluid Description: Clear Specimen collected: Yes Description of specimen(s) removed: placenta and baby Cord Vessel Description: 3 Vessels Delayed Cord Clamping: Yes Tallow Maker farm supervisor: Yes Sr. Vendor Management Associate: Ilda Nagy Tasks completed by first leveler: Opening & closing, Retracting and Other (assisting in delivery of the infant) Additional pediatric physician assistant?: No Complications Complications: No Admit VTE Documentation VTE Present on Admission: No VTE Mechan Device Prophylaxis: SCD's Procedures Urinary/Genital [id number]: [id number] Delivery [facility]
--- NOTE | 2025-04-22 08:59 | NURSING ---
Pt having some PVCs on the phototypesetting equipment monitor. When asked pt states she has a history of SVT and that it is in the chamber of the heart that makes it insignificant. States she saw a utility worker driver at the [facility]. Neil LAND notifying Dr. hardy.
[2025-04-22] MEDS: Ketorolac 30 MG/ML Syringe IV ×3 (09:42→22:21)
--- NOTE | 2025-04-22 10:04 | FALS_PTH ---
[id number] LOC: WP U#:[id number] AGE/SX: 39/F ROOM: WP004 RE04/22/[address]: Dr. Sonya Benoit MD : 1985 BED: 1 DIS: 04/24/2025 SPEC #: [id number] RECD: 04/22/25 14:01 STATUS: TANJA SOTOLex #: [id number] VY: 04/22/25 10:[address]: Sonya Benoit DEPT: SURGICAL PATHOLOGY RECD BY: Kenny Cooper ENTERED: 04/22/25 16:15 SP TYPE: FALL TUBES OTHR DR: Marquis Salamanca MD Tissues: A - Fallopian tube Procedures: Surgery Specimen Level II HEADER OPERATION: Tubal ligation PRE-OP DIAGNOSIS: Sterilization TISSUE SUBMITTED: A- Bilateral fallopian tubes *stitch in left tube* MICROSCOPIC DIAGNOSIS A. Bilateral fallopian tubes, resection: - No specific pathologic change (complete luminal cross-section identified) x2. MICROSCOPIC DESCRIPTION Slides are reviewed. GROSS DESCRIPTION Received fresh and subsequently placed in formalin labeled with the patient's name and date of . Designated as stitch and left are 2 purple-dean red fimbriated fallopian tubes with a stitch designated as left, measuring 7.9 x 0.8 cm (left) and 7.6 x 1.0 cm (right). Paratubal cysts are present, 0.1 cm to 0.2 cm. Computer Engineering Professor sections are submitted in 2 cassettes as follows: A1: Left fallopian tubeA2: Right fallopian tube ME 04/22/2025 A. Additional specialty sales representative sections are submitted in 2 cassettes, following histopathologic review as follows:A3: Left fallopian tubeA4: Right fallopian tube ME 04/29/2025 CPT:88460b5
[2025-04-22 13:59] LABS: Pathology Specimen OB SEE PATHOLOGY REPORT
[2025-04-22] MEDS: 0.9% Saline Lock 10 ML Syringe IV ×2 (16:29→22:22)
--- NOTE | 2025-04-22 17:07 | DCINST_ITS ---
Discharge Instructions DC O2, CPAP, BIPAP needs Home O2 Discharge instructions: No Dressing / Incision Discharge Activity: May Not Drive (for 2 weeks or while taking narcotic pain medications.), May Shower and May Take a Tub Bath (in 7 days) May shower in (days): 0 May resume sexual activity in: 4-6 weeks Weight Bearing Status: Full weight bearing Lifting Restrictions: 20 pounds Dressing / Incision Call your doctor if your incision/area has: Continuous Slow Oozing, Sudden Increased Bleeding, Increased Pain/ Swelling, Increased Redness and Foul Smelling Discharge Call your doctor if you observe: Fever of 101 or Higher and Using more than 1 pad per hour (for 2 hours) Suture Line Care: Avoid Pulling/Pushing and Avoid Pinching/Bending Cleanse incision/area with: Soap & Water and Keep Dressing Clean & Dry Follow Up Care Please Follow Up With: Sonya Benoit MD When: Call [phone] to make an appointment for an incision check in 1-2 weeks. Test Results: Test results from this visit will be discussed in further detail at your follow- up appointment, if applicable. Discharge Plan Admission Admit Date/Time: 04/22/25 05:25 Attending Provider: Sonya Benoit Primary Care Provider: Marquis Salamanca Discharge Orders/Prescriptions Prescriptions: New oxycodone-acetaminophen [Percocet] 5-325 mg tablet 1 tab PO Q4H PRN (Reason: pain) 7 Days Qty: 20 0RF naproxen 500 mg tablet 500 mg PO BID PRN PRN (Reason: Pain) Qty: 30 1RF No Action PNV-DHA 27 mg iron-1 mg -300 mg capsule 1 cap PO DAILY Saccharomyces boulardii [Daily Probiotic (S. boulardii)] 250 mg capsule 250 mg PO ONCE pyridoxine (vitamin B6) 200 mg tablet 200 mg PO BID albuterol sulfate 90 mcg/actuation HFA aerosol inhaler 1 puff inhalation ONCE PRN (Reason: see provider) buspirone 5 mg tablet 5 mg PO BID famotidine [Pepcid] 20 mg tablet 20 mg PO BID Qty: 60 6RF docusate sodium [Colace] 100 mg capsule 100 mg PO BID meclizine 12.5 mg tablet 12.5 mg PO BID Referrals / Follow Up: Marquis Salamanca MD [Primary Care Provider] -
[2025-04-23 00:37] VITALS: BP 114/72; PULSE 63; RESP 16; TEMP 36.2; O2SAT 97
[2025-04-23] MEDS: 0.9% Saline Lock 10 ML Syringe IV (04:03)
[2025-04-23] MEDS: Ketorolac 30 MG/ML Syringe IV (04:03)
[2025-04-23 04:07] VITALS: BP 107/66; PULSE 70; RESP 16; TEMP 36.1; O2SAT 97
[2025-04-23 06:47] LABS: Hematocrit 31.8 % (37-47); Hemoglobin 10.9 g/dL (12.0-15.0); Mean Corp Hgb Conc 34.3 g/dL (32-36); Mean Corpuscular Volume 89.8 fL (81-99); Mean Platelet Vol. 12.5 fl (6.2-12.0); Platelet Count 156 K/mm3 (150-450); RBC Distribution Width CV 13.3 % (11.6-14.6); RBC Distribution Width SD 43.8 fl (35.1-43.9); Red Blood Count 3.54 M/mm3 (4.2-5.4); White Blood Count 14.4 K/mm3 (4.4-11.0)
--- NOTE | 2025-04-23 07:40 | PN.OBGYN_ITS ---
Subjective Subjective Patient doing well without complaints. Tolerating PO. Ambulating and voiding without difficulty. Feeding well. Denies chest pain, shortness of breath, calf pain/swelling, fevers, chills, lightheadedness. Objective Data Objective Data Vital Signs: Vital Signs Temp Pulse Resp BP Pulse Ox O2 Del Method 97.0 F L 70 16 107/66 97 Room Air 04/23/25 04:07 04/23/25 04:07 04/23/25 04:07 04/23/25 04:07 04/23/25 04:07 04/23/25 04:07 Oxygen Delivery Method Room Air Weight: 171 lb 11.841 oz Body Mass Index (BMI) 28.5 Intake & Output: Intake and Output for Last 24 Hours 04/21/25 04/22/25 04/23/25 23:59 23:59 23:59 Intake Total 1685.0 / 1685.0 Output Total 1100 / 1100 400 / 400 Balance 585.0 / 585.0 -400 / -400 Lab / Micro Data 04/23/25 06:35 Labs: Laboratory Results - last 24 hr 04/23/25 06:35: WBC 14.4 H, RBC 3.54 L, Hgb 10.9 L, Hct 31.8 L, MCV 89.8, MCH 30.8, MCHC 34.3, RDW Std Deviation 43.8, RDW Coeff of Jenn 13.3, Plt Count 156, M PV 12.5 H ROS Constitutional Constitutional: Reports systems reviewed and no addt'l complaints, except as documented Cardiovascular Cardiovascular: Reports as per HPI Respiratory/Chest Respiratory/Chest: Reports as per HPI Genitourinary Genitourinary: Reports as per HPI Physical Exam Const alert and oriented x3 HEENT normocephalic Eyes PERRL Neck full ROM Resp normal respiratory effort GI soft to palpation GI Narrative: FF below U. Dressing dry and intact Palpation: tender other (appropriately) Assessment & Plan (1) delivery delivered: COMMENT: VALENTINE RLTCS BS boy 39 (2) Status post bilateral salpingectomy: (3) Rh negative status during : QUALIFIERS: Trimester: third trimester Qualified Code(s): O26.893 - Other specified related conditions, third trimester; Z67.91 - Unspecified blood type, Rh negative COMMENT: AB-, rhogam prn with bleeding, 28 wk and pp, Given 02/05/25 PLAN: Plan s/p LTCS PPD #1 1. routine post care 2. breast feeding- support given 3. rh negative-rhogam pp 4. rubella immune
[2025-04-23 08:00] VITALS: BP 115/63; PULSE 72; RESP 16; TEMP 36.2; O2SAT 98
[2025-04-23] MEDS: Senna/Docusate Sodium 1 Tablet PO (09:23)
[2025-04-23 14:20] VITALS: BP 111/53; PULSE 85; RESP 16; TEMP 36.4; O2SAT 97
[2025-04-23 20:57] VITALS: BP 125/74; PULSE 94; RESP 16; TEMP 36.1; O2SAT 97
[2025-04-24 01:51] VITALS: BP 118/66; PULSE 74; RESP 16; TEMP 36.1; O2SAT 98
--- NOTE | 2025-04-24 07:44 | PCM.PN.OB ---
Subjective Subjective Patient doing well without complaints. Tolerating PO. Ambulating and voiding without difficulty. Feeding well. Denies chest pain, shortness of breath, calf pain/swelling, fevers, chills, lightheadedness. Objective Data Objective Data Vital Signs: Vital Signs Temp Pulse Resp BP Pulse Ox O2 Del Method 97 F L 74 16 118/66 98 Room Air 04/24/25 01:51 04/24/25 01:51 04/24/25 01:51 04/24/25 01:51 04/24/25 01:51 04/24/25 01:51 Oxygen Delivery Method Room Air Weight: 171 lb 11.841 oz Body Mass Index (BMI) 28.5 Intake & Output: Intake and Output for Last 24 Hours 04/22/25 04/23/25 04/24/25 23:59 23:59 23:59 Intake Total 1685.0 / 1685.0 Output Total 1100 / 1100 400 / 400 Balance 585.0 / 585.0 -400 / -400 Lab / Micro Data 04/23/25 06:35 Physical Exam Const alert and oriented x3 HEENT normocephalic Eyes PERRL Neck full ROM Resp normal respiratory effort GI soft to palpation GI Narrative: FF below U. Dressing dry and intact Palpation: tender other (appropriately) Assessment & Plan (1) delivery delivered: COMMENT: RLTCS BS boy 39 [place] (2) Status post bilateral salpingectomy: (3) Anxiety: COMMENT: stable (4) Rh negative status during : QUALIFIERS: Trimester: third trimester Qualified Code(s): O26.893 - Other specified related conditions, third trimester; Z67.91 - Unspecified blood type, Rh negative COMMENT: AB-, rhogam prn with bleeding, 28 wk and pp, Given 02/05/25 PLAN: Plan s/p LTCS PPD # 2 1. routine post care 2. breast feeding- support given 3. rh negative 4. rubella immune 5. home today
[2025-04-24 08:00] VITALS: BP 126/77; PULSE 80; RESP 16; TEMP 36.6
[2025-04-24] MEDS: Senna/Docusate Sodium 1 Tablet PO (10:24)
--- NOTE | 2025-04-29 13:48 | NURSING ---
Here for visit on Monday04/27/25. Patient states she is doing well, has minimal bleeding. Denies any headaches, visual disturbances or baby blues. Denies any questions at this time, see note for feeding.
== END 2025-04-24 13:30 | disposition home or self-care (01) | DRG 783 ==
PROVIDERS: Admitting Provider Obstetrics & Gynecology; PCP Family Medicine; Referring Provider Obstetrics & Gynecology; Visit Provider Obstetrics & Gynecology
PROC: 10D00Z1 Extraction of Products of Conception, Low, Open Approach (ICD-10-PCS; CPT 59514; principal; 2025-04-22 07:00)
DX: O34.211 Maternal care for low transverse scar from previous cesarean delivery (principal); O99.42 Diseases of the circulatory system complicating childbirth; I47.10 Supraventricular tachycardia, unspecified; J45.909 Unspecified asthma, uncomplicated; F41.9 Anxiety disorder, unspecified; Z30.2 Encounter for sterilization; Z37.0 Single live birth; O99.52 Diseases of the respiratory system complicating childbirth; O99.344 Other mental disorders complicating childbirth; O99.824 Streptococcus B carrier state complicating childbirth; Z3A.38 38 weeks gestation of pregnancy; Z67.91 Unspecified blood type, Rh negative; O62.2 Other uterine inertia; B95.1 Streptococcus, group B, as the cause of diseases classified elsewhere
CPT/HCPCS: 59025; 59050; 85025; 85027; 86780; 86850; 86900; 86901; 88302; 99221; A4216; G0378; J2405